=== PATIENT | male | born 1940 | race Caucasian/White ===

== ENCOUNTER 2018-09-11 16:39 | Outpatient (REF) | payer MEDICARE, SELFPAY | END 2018-09-11 16:59 | LOC: NCHCN 16:39 | PROVIDERS: PCP Family Medicine; Visit Provider Family Medicine | DX: N39.0 Urinary tract infection, site not specified (principal) | CPT/HCPCS: 87077; 87086; 87186 ==

== ENCOUNTER 2019-05-11 12:55 | Outpatient (REF) | payer MEDICARE, BC, SELFPAY ==
[2019-05-11 22:04] LABS: TSH (W/Ref FT4) 4.11 uIU/mL (0.358-3.74); Vitamin B12 319 pg/mL (193-986)
[2019-05-11 22:30] LABS: FREE T4 0.92 ng/dL (0.76-1.46)
== END 2019-05-11 13:15 ==
LOC: NCHCN 12:55
PROVIDERS: PCP Family Medicine; Visit Provider Internal Medicine
DX: R73.09 Other abnormal glucose (principal); G60.9 Hereditary and idiopathic neuropathy, unspecified; N40.0 Benign prostatic hyperplasia without lower urinary tract symptoms
CPT/HCPCS: 82607; 84439; 84443

== ENCOUNTER 2019-11-20 13:27 | Outpatient (REF) | payer MEDICARE, BC, SELFPAY | END 2019-11-20 13:47 | LOC: NCHCN 13:27 | PROVIDERS: PCP Family Medicine; Visit Provider Internal Medicine | DX: R35.0 Frequency of micturition (principal) | CPT/HCPCS: 87077; 87086; 87186 ==

== ENCOUNTER 2020-01-13 15:03 | Outpatient (REF) | payer MEDICARE, BC, SELFPAY | END 2020-01-13 15:23 | LOC: NCHCN 15:03 | PROVIDERS: PCP Family Medicine; Visit Provider Registered Nurse | DX: R82.998 Other abnormal findings in urine (principal) | CPT/HCPCS: 87077; 87086; 87186 ==

== ENCOUNTER 2020-03-11 11:18 | Outpatient (REF) | payer MEDICARE, BC, SELFPAY ==
[2020-03-11 21:41] LABS: ALT 31 U/L (16-63); AST 24 U/L (15-37); Albumin 3.8 g/dL (3.4-5.0); Alkaline Phosphatase 105 U/L (46-116); Anion Gap 10.2 mmol/L (3-11); BUN 14 mg/dL (7-18); Bilirubin, Total 0.7 mg/dL (0.2-1.0); CO2 26.8 mmol/L (21.0-32.0); CREATININE 1.07 mg/dL (0.70-1.30); Calcium 9.2 mg/dL (8.5-10.1); Calculated LDL 97 mg/dL (<100); Chloride 103 mmol/L (98-107); Cholesterol 181 mg/dL (<200); Glucose 135 mg/dL (74-106); HDL Cholesterol 45 mg/dL (40-60); Potassium 4.2 mmol/L (3.5-5.1); Sodium 140 mmol/L (136-145); TSH (W/Ref FT4) 1.91 uIU/mL (0.36-3.74); Total Protein 7.3 g/dL (6.4-8.2); Triglyceride 199 mg/dL (<150)
[2020-03-11 22:00] LABS: HCT 52.8 % (40.0-50.0); HGB 17.5 g/dL (13.5-17.5); Mean Corp. HGB Concentration 33.1 g/dL (32.0-36.0); Mean Corpuscular Hemoglobin 32.3 pg (27.0-33.0); Mean Corpuscular Volume 97.4 fL (80-95); Mean Platelet Volume 10.7 fL (8.0-11.0); Platelet Count 251 x1000/uL (130-400); RBC 5.42 m/cumm (4.50-6.00); RBC Distribution Width 12.9 % (11.8-14.1); White Blood Cell Count 6.53 k/cumm (4.4-10.8)
[2020-03-11 22:25] LABS: Hemoglobin A1C 5.7 % (3.8-5.6)
== END 2020-03-11 11:38 ==
LOC: NCHCN 11:18
PROVIDERS: PCP Family Medicine; Visit Provider Internal Medicine
DX: R73.09 Other abnormal glucose (principal); E78.2 Mixed hyperlipidemia; Z01.818 Encounter for other preprocedural examination
CPT/HCPCS: 80053; 80061; 85027; 83036; 84443

== ENCOUNTER 2021-03-20 09:38 | Outpatient (REF) | payer MEDICARE, BC, SELFPAY ==
[2021-03-20 13:54] LABS: Hemoglobin A1C 5.5 % (<5.7)
[2021-03-20 14:07] LABS: Anion Gap 11.8 mmol/L (3-11); BUN 13 mg/dL (7-18); CO2 26.2 mmol/L (21.0-32.0); Calcium 9.1 mg/dL (8.5-10.1); Calculated LDL 87 mg/dL (<100); Chloride 103 mmol/L (98-107); Cholesterol 163 mg/dL (<200); Glucose 148 mg/dL (74-106); HDL Cholesterol 43 mg/dL (40-60); Potassium 4.5 mmol/L (3.5-5.1); Sodium 141 mmol/L (136-145); Triglyceride 165 mg/dL (<150)
== END 2021-03-20 09:39 | disposition home or self-care (01) ==
LOC: NCHCN 09:38
PROVIDERS: PCP Family Medicine; Visit Provider Internal Medicine
DX: E78.5 Hyperlipidemia, unspecified (principal); R73.09 Other abnormal glucose
CPT/HCPCS: 80048; 80061; 83036

== ENCOUNTER 2022-03-22 09:42 | Outpatient (REF) | payer MEDICARE, BC, SELFPAY ==
[2022-03-22 14:54] LABS: Hemoglobin A1C 5.8 % (<5.7)
[2022-03-22 15:00] LABS: ALT 31 U/L (16-63); AST 20 U/L (15-37); Albumin 3.9 g/dL (3.4-5.0); Alkaline Phosphatase 93 U/L (46-116); Anion Gap 10.2 mmol/L (3-11); BUN 14 mg/dL (7-18); Bilirubin, Total 0.8 mg/dL (0.2-1.0); CO2 25.8 mmol/L (21.0-32.0); CREATININE 1.1 mg/dL (0.70-1.30); Calcium 8.7 mg/dL (8.5-10.1); Chloride 105 mmol/L (98-107); Glucose 116 mg/dL (74-106); Potassium 4.6 mmol/L (3.5-5.1); Sodium 141 mmol/L (136-145); Total Protein 7.2 g/dL (6.4-8.2)
== END 2022-03-22 09:43 | disposition home or self-care (01) ==
LOC: NCHCN 09:42
PROVIDERS: PCP Family Medicine; Visit Provider Internal Medicine
DX: R73.03 Prediabetes (principal)
CPT/HCPCS: 80053; 83036

== ENCOUNTER 2023-11-15 15:03 | Outpatient (REF) | payer MEDICARE, BC, SELFPAY ==
[2023-11-15 21:33] LABS: HCT 54.1 % (40.0-50.0); HGB 18.2 g/dL (13.5-17.5); MCH 32.4 pg (27.0-33.0); MCHC 33.6 % (32.0-36.0); MCV 96 fL (80-95); MPV 10.7 fL (8.0-11.0); Platelet Count 261 10^3/uL (130-400); RBC 5.62 10^6/uL (4.36-5.78); RDW 12.1 % (11.8-14.1); RDW-SD 43.4 fL; WBC 8.14 10^3/uL (4.4-10.8)
[2023-11-15 22:07] LABS: Hemoglobin A1C 5.7 % (<5.7)
[2023-11-15 23:22] LABS: ALT 29 U/L (16-63); AST 26 U/L (15-37); Albumin 3.8 g/dL (3.4-5.0); Alkaline Phosphatase 82 U/L (46-116); Anion Gap 5.5 mmol/L (3-11); BUN 12 mg/dL (7-18); Bilirubin, Total 0.6 mg/dL (0.2-1.0); CO2 28.5 mmol/L (21.0-32.0); CREATININE 1.1 mg/dL (0.70-1.30); Calcium 9.5 mg/dL (8.5-10.1); Calculated LDL 83 mg/dL (<100); Chloride 105 mmol/L (98-107); Cholesterol 182 mg/dL (<200); Estimated GFR 67.02 (mL/min/1.73m2); Glucose 112 mg/dL (74-106); HDL Cholesterol 46 mg/dL (40-60); Potassium 4.3 mmol/L (3.5-5.1); Sodium 139 mmol/L (136-145); Total Protein 7.8 g/dL (6.4-8.2); Triglyceride 267 mg/dL (<150); Vitamin B12 201 pg/mL (193-986)
== END 2023-11-15 15:04 | disposition home or self-care (01) ==
LOC: NCHCN 15:03
PROVIDERS: PCP Family Medicine; Visit Provider Internal Medicine
DX: R73.03 Prediabetes (principal); E78.1 Pure hyperglyceridemia; R79.89 Other specified abnormal findings of blood chemistry; G62.9 Polyneuropathy, unspecified
CPT/HCPCS: 80053; 80061; 85027; 82607; 83036

== ENCOUNTER 2024-01-10 15:45 | Outpatient (REF) | payer MEDICARE, BC, SELFPAY ==
[2024-01-10 22:09] LABS: Vitamin B12 387 pg/mL (193-986)
== END 2024-01-10 15:46 | disposition home or self-care (01) ==
LOC: NCHCN 15:45
PROVIDERS: PCP Family Medicine; Referring Provider Internal Medicine; Visit Provider Internal Medicine
DX: E53.8 Deficiency of other specified B group vitamins (principal)
CPT/HCPCS: 82607

== ENCOUNTER 2024-01-13 13:42 | Outpatient (REF) | payer MEDICARE, BC, SELFPAY ==
[2024-01-13 14:43] LABS: HCT 52.9 % (40.0-50.0); HGB 17.2 g/dL (13.5-17.5); MCH 32.1 pg (27.0-33.0); MCHC 32.5 % (32.0-36.0); MCV 99 fL (80-95); MPV 10.6 fL (8.0-11.0); Platelet Count 241 10^3/uL (130-400); RBC 5.36 10^6/uL (4.36-5.78); RDW 12.3 % (11.8-14.1); RDW-SD 45.1 fL; WBC 7.35 10^3/uL (4.4-10.8)
== END 2024-01-13 13:43 | disposition home or self-care (01) ==
LOC: NCHCN 13:42
PROVIDERS: PCP Family Medicine; Visit Provider Internal Medicine
DX: R04.0 Epistaxis (principal)
CPT/HCPCS: 85027

== ENCOUNTER 2024-05-18 13:12 | Outpatient (REF) | payer MEDICARE, BC, SELFPAY ==
--- OUTSIDE RECORDS SUMMARY | 2024-05-18 13:18 | XMS_ITS | Encounter Summary ---
Author Organization [facility] Address [address] [place] [address] Care Team Providers Care Associate Manager Affiliate Marketing Name Role Phone Kylie Oglesby Primary Care Provider [phone] Reason for Visit * Reason Onset Date Comments Medication Questions 07/05/2020 Encounter Details Date Type Department Care Team (Late st Contact Info) Description 07/05/2020 Telephone [facility] [address] [place] [address] James Chin MD [address] [facility] [address] [place] [address] Medication Questions Social History Tobacco Use Types Packs/Day Years Used Date Smoking Tobacco: Former Cigarettes 2 30 1 1994 Smokeless Tobacco: Never Alcohol Use Standard Drinks/Week Comments Yes 7 (1 standard drink = 0.6 oz pur e alcohol) PHQ-2 Answer Date Recorded PHQ-2 Score 0 05/30/2020 Interpersonal Safety Answer Date Record ed Physically Hurt Never 05/30/2020 Verbally Threaten Not on file 05/30/2020 Sex and Gender Information Value Date Recorded Sex Assigned at Not on file Gender Identity Male 11/28/2019 13:59 EST Sexual Orientation Not on file documented as of this encounter Functional Status Functional Status Response Date of Assess ment Are you deaf or do you have serious difficulty h earing? No 03/17/2020 Are you blind or do you have serious difficulty seeing, even when wearing glasses? No 03/17/2020 Do you have serious difficul ty walking or climbing stairs? (5 years old or older) No 03/17/2020 Do you have difficulty dress ing or bathing? (5 years old or older) No 03/17/2020 Because of a physical, menta l, or emotional condition, does this person have difficulty doing errands alone such as visiting a doctor's office or shopping? No 06/28/2020 Cognitive Status Response Date of Assessm ent Because of a physical, menta l, or emotional condition, does this person have serious difficulty concentrating, remembering, or making decisions? No 06/28/2020 documented as of this encounter Miscellaneous Notes * Telephone Encounter - Jose Styles - 07/06/2020 1212 EDT Patient notified, as of our coversation yesterday his marc has been great. 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 He wnders if should still be on tamsulosin (as he was prior) documented in this encounter Plan of Treatment Not on file documented as of this encounter Visit Diagnoses Not on filedocumented in this encounter Care Teams Associate Manager Affiliate Marketing Relationship Specialty Start Date End Date Kylie Oglesby [address] [place] [address] PCP - General Internal Medicine - Primary Care 12/15/19 documented as of this encounter
--- OUTSIDE RECORDS SUMMARY | 2024-05-18 13:18 | XMS_ITS | Encounter Summary ---
Author Organization [facility] Address [address] [place] [address] Care Team Providers Care Violent Crimes Detective Name Role Phone Kylie Oglesby Primary Care Provider [phone] Reason for Visit * Reason Comments Post-OP Follow Up Encounter Details Date Type Department Care Team (Late st Contact Info) Description 04/12/2020 15:30 EDT Post-op Visit [facility] General Surgery - [facility] [address] [place], [place] [id number] Sara Mendez MD [address] [facility], [address] [place] [address] Colovesical fistula (Primary Dx) Social History Tobacco Use Types Packs/Day Years Used Date Smoking Tobacco: Former Cigarettes 2 30 1 965 - 1994 Smokeless Tobacco: Never Alcohol Use Standard Drinks/Week Comments Yes 7 (1 standard drink = 0.6 oz pur e alcohol) Sex and Gender Information Value Date Recorded Sex Assigned at Not on file Gender Identity Male 11/28/2019 13:59 EST Sexual Orientation Not on file COVID-19 Exposure Response Date Recorded In the last month, have you been in contact with someone who was confirmed or suspected to have Coronavirus / COVID-19? No / Unsure 03/17/2020 6:49 EDT documented as of this encounter Last Filed Vital Signs Vital Sign Reading Time Taken Comments Blood Pressure - - Pulse - - Temperature - - Respiratory Rate - - Oxygen Saturation - - Inhaled Oxygen Concentration - - Weight 100.7 kg (222 lb) 04/12/2020 1529 EDT Height - - Body Mass Index 27.02 03/17/2020 1600 EDT documented in this encounter Functional Status Functional Status Response [...] a physical, menta l, or emotional condition, do you have difficulty doing errands alone such as visiting a doctor's office or shopping? (15 years old or older) No 03/17/2020 Cognitive Status Response Date of Assessm ent Because of a physical, menta l, or emotional condition, do you have serious difficulty concentrating, remembering, or making decisions? (5 years old or older) No 03/17/2020 documented as of this encounter Progress Notes * Sara Mendez MD - 04/12/2020 1530 EDT Subjective: Patient is s/p sigmoid colectomy for complicated diverticulitis with colovesicular fistula 03/17/20--path consistent with such. His postoperative course was complicated by high grade fevers on POD 0 for which he was treated with a 5 day course of cipro/flagyl and ileus which resolved with NG tube dec ompression. He was discharged home POD 9. He is having 1 or 2 bowel movements per day. Good control, no urgency. He denies any pneumaturia ordysuria. His weight is down to 206 from 222. He states that he is probably gained 1 pound from his lowest weight based on his home scale. Colonoscopy 02/17/30 with diverticulosis, only repeat if symptomatic in future given patient's age. He has bowel movements about once daily. ??He denies constipation. ??He denies fecal incontinence but does occasionally have some urgency. ??He has no blood in his bowel movement or change in caliber. ??He has no significant change in his bowel movements. ?? In regards to symptoms of diverticulitis, patient does not endorse any history of left lower quadrant or suprapubic pain associated with fevers chills or change in bowel movements. ? He has been seen by the urology department at [facility] with Cathryn Monzon. ??She did a CT scan of the abdomen and pelvis with per rectum contrast that demonstrated some sigmoid colon inflammation, gasin the bladder, and some thickening of the bladder, and a loop of terminal ileum that traverses clos brennan.?CT scan also demonstrated some subcentimeter pulmonary nodules and with his history of smoking, it is recommended he undergo repeat CT scan in the next 3 to 6 months. ?? CT 04/2019 for flank pain reviewed by myself--does demonstrate a thickened bladder with gas in the bladder, no inflammation of the sigmoid colon. ?? 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 ??He denies any chest pain with exertion, but does have some shortness of breath if he walks out 2 flights of stairs ?? Colonoscopy was about 2 to 3 years ago at [facility]. ??He states it was normal. ??He did have 1-2 polyps that he was age 61 at his first colonoscopy. 02/18/20: diverticulosis of sigmoid colon. ?? Surgical hx: appendectomy at age 6, tonsillectomy ?? No unintentional weight loss ?? Family history: Maternal grandfather of consumption, maternal aunt with severe arthritis. ??Nohistory of cancer, no history of polyps or IBD. ??Patient does not know his father's side well and he was raised by his grandmother. Current Outpatient Medications: acetaminophen (TYLENOL) 325 mg tablet pantoprazole (PROTONIX) 40 mg tablet tamsulosin (FLOMAX) 0.4 mg capsule No current facility-administered medications for this visit. Past Medical History: Diagnosis Date ??? Activity, other involving cardiorespiratory exercise 03/03/2020 gym daily, treadmill 1 mile, has not been able to go for last 4 weeks secondary to covid19, pt states could climb 2 flights of stairs without stopping or SOB ??? Claustrophobia 03/03/2020 with MRI's ??? Colon polyp ??? Diverticulitis ??? Edentulous no upper teeth, has natural teeth on the bottom ??? Fistula colovesicular fistula - diverticulitis ??? Frequent UTI started having issues [id number], never been hospitalized for uti ??? History of general anesthesia ??? Peripheral neuropathy 03/03/2020 ongoing issue Past Surgical History: Procedure Laterality Date ??? APPENDECTOMY 1946 ??? TONSILLECTOMY ~194 No family history on file. Objective: There were no vitals taken for this visit. General: Alert and oriented x 3, in no apparent distress Abdomen: Well-healing subxiphoid and periumbilical incision A/P: Almost 1 month out from sigmoid resection for complicated diverticulitis with colovesicular fistula. Doing well. I will see him back in 2 months. documented in this encounter Plan of Treatment Not on file documented as of this encounter Visit Diagnoses Diagnosis Colovesical fistula- Primary Intestinovesical fistula documented in this encounter Care Teams Violent Crimes Detective Relationship Specialty Start Date End Date Kylie Oglesby [address] [place] [address] PCP - General Internal Medicine - Primary Care 12/15/19 documented as of this encounter
--- OUTSIDE RECORDS SUMMARY | 2024-05-18 13:18 | XMS_ITS | Continuity of Care Document ---
Author Organization [facility] Address [address] [place] [address] Care Team Providers Care Exchange Trouble Shooter Name Role Phone Kylie Oglesby Primary Care Physician Encounter [facility] Date(s): 04/03/24 - 04/03/24 [facility] [address] [place] [address] Discharge Disposition: Home Allergies, Adverse Reactions, Alerts Substance Reaction Severity Status predniSONE Moderate Active Assessment and Plan Future Appointments Medications Afrin 0.05% nasal spray 2 sprays, Nostril-Both, BID, # 30 mL, 0 Refill(s) Start Date: 03/27/24 Status: Ordered cyanocobalamin 1000 mcg oral tablet 1,000 mcg = 1 tab, Oral, Daily, # 90 tab, 0 Refill(s) Start Date: 03/27/24 Status: Ordered docusate sodium 100 mg oral tablet 100 mg = 1 tab, Oral, Daily, PRN as needed for constipation, # 60 tab, 0 Refill(s) Start Date: 03/27/24 Status: Ordered gabapentin 600 mg oral tablet 600 mg = 1 tab, Oral, BID, # 270 tab, 0 Refill(s) Start Date: 04/03/24 Status: Ordered Problem List Condition Confirmation Course Effective Dates Status H ealth Status Informant Impaired intestinal absorption Confirmed Active Blood glucose abnormal Confirmed Active Cobalamin deficiency Confirmed Active Cystitis Confirmed Active Left sided sciatica Confirmed Active Diverticular disease Confirmed Active Dizziness and giddiness Confirmed Active Dysuria Confirmed Active Erythrocytosis Confirmed Active Former heavy tobacco smoker Confirmed Active Ex-smoker Confirmed Active Hyperlipidemia Confirmed Active Increased frequency of urination Confirmed Active Gastrointestinal tract injury Confirmed Active Localized skin eruption Confirmed Active Low back pain Confirmed Active Nocturia Confirmed Active Nocturia associated with benign prostatic hyperplasia Confirmed Active Onychomycosis due to dermatophyte Confirmed Active Open wound of toe with damage to nail Confirmed Active Polyneuropathy Confirmed Active Prediabetes Confirmed Active Sciatica Confirmed Active Urinary tract infectious disease Confirmed Active Urticaria Confirmed Active Varicocele Confirmed Active Varicose vein of leg Confirmed Active Social History Social History Type Response Tobacco Former tobacco user Tobacco Use:. quit 1995 per day. Sex Patient Care team information Care Team Personnel Name: Kylie Oglesby MD Position: No Access Member Role: Primary Care Physician Address: Address: [address] [address]- Care Team Related Persons Name: RAMIRO RUBIO Address: Home [address] [place] [phone]
--- OUTSIDE RECORDS SUMMARY | 2024-05-18 13:18 | XMS_ITS | Referral Summary ---
Author Organization [facility] Address [address] [place] [address] Care Team Providers Care Wet Finisher Wool Name Role Phone Kylie Oglesby Primary Care Provider [phone] Allergies Active Allergy Reactions Criticality Noted Date Comments Corticosteroids (Glucocorticoids) Other (See Comments) 12/01/2019 Paranoia, crazy Medications Medication Sig Dispensed Refills Start Date End Date Status tamsulosin (FLOMAX) 0.4 mg capsule Take by mouth daily. 11/17/2019 Active acetaminophen (TYLENOL) 325 mg tablet Take 1-2 Tabs by mouth every 4 hours as needed for Pain. 03/25/202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 Overview: Added automatically from request for surgery [id number] Diverticulitis 03/01/2020 Overview: Added automatically from request for surgery [id number] Diverticulitis large intestine 02/18/2020 Immunizations Name Administration Dates Next Due Influenza Vaccine High Dose (FLUZONE HIGH DOSE) PF 0.7 ml IM (65 yrs+) 09/10/2019 Social History Tobacco Use Types Packs/Day Years Used Date Smoking Tobacco: Former Cigarettes 2 30 1 5 - 1994 Smokeless Tobacco: Never Alcohol Use [...] 13:59 EST Sexual Orientation Not on file Last Filed Vital Signs Vital Sign Reading Time Taken Comments Blood Pressure 120/88 06/28/2020 1432 EDT Pulse 78 06/28/2020 143 EDT Temperature 37.3 ??C (99.1 ??F) 03/26/2020 06 EDT Respiratory Rate 18 03/26/2020 06 EDT Oxygen Saturation 97% 03/26/2020 06 EDT Inhaled Oxygen Concentration - - Weight 95.3 kg (210 lb) 06/28/2020 143 EDT Height 193 cm (6' 4) 06/28/2020 143 EDT Body Mass Index 25.56 06/28/2020 143 EDT Functional Status Functional Status Response Date of [...] concentrating, remembering, or making decisions? No 06/28/2020 Plan of Treatment Not on file Medical Devices Implanted Type Area Mortgage Loan Processor Device Identifier Shelf Expiration Date Model / Serial / Lot Evacuator Suction 100cc Silicone Closed Wound With Anti-Reflux Valve - [id number] Implanted:Qty : 1 on 03/17/2020 by Sara Mendez MD at [facility] Drain N/A: Abdomen Polatis [id number] 07/25/2022 [id number] Advance Directives For more information, please contact: [phone] Documents on File Type Date Recorded Patient Small Craft Operator Expl anation Advance Directive 03/17/2020 7:05 AD/POA Advance Directive 03/18/2020 9:21 [place] Advan ce Directive for Health Care-Signed 2015-06-03 Advance Directive 03/18/2020 9:21 Power Of Forestry Biology Specialist-Signed 2015-06-03 * Full Code (Latest Code Status on File) Date Activated Date Inactivated Comments 03/17/2020 7:20 03/17/2020 13:53 Question Answer Comments Reason for decision includes: Full code consistent with overall plan of care Who participated in the discussion? Not Discusse d * Full Code Date Activated Date Inactivated Comments 02/18/2020 12:12 02/18/2020 16:59 Question Answer Comments Reason for decision includes: Full code consistent with overall plan of care Who participated in the discussion? Not Discusse d Care Teams Wet Finisher Wool Relationship Specialty Start Date End Date Kylie Oglesby [address] [place] [address] PCP - General Internal Medicine - Primary Care 12/15/19
--- OUTSIDE RECORDS SUMMARY | 2024-05-18 13:18 | XMS_ITS | Encounter Summary ---
Author Organization [facility] Address [address] [place] [address] Care Team Providers Care Fire Prevention Chief Name Role Phone Kylie Oglesby Primary Care Provider [phone] Encounter Details Date Type Department Care Team (Latest Contact Info) Description 03/17/2020 Travel Social History Tobacco Use Types Packs/Day Years Used Date Smoking Tobacco: Former Cigarettes 30 965 1994 Smokeless Tobacco: Never Alcohol Use Standard [...] 6:49 EDT documented as of this encounter Functional Status [...] No 03/17/2020 documented as of this encounter Plan of Treatment Not on file documented as of this encounter Visit Diagnoses Not on filedocumented in this encounter Care Teams Fire Prevention Chief Relationship Specialty Start Date End Date Kylie Oglesby [address] [place] [address] PCP - General Internal Medicine - Primary Care 12/15/19 documented as of this encounter
--- OUTSIDE RECORDS SUMMARY | 2024-05-18 13:18 | XMS_ITS | Encounter Summary ---
Author Organization [facility] Address [address] [place] [address] Care Team Providers Care Curing Pickling Packer Name Role Phone Kylie Oglesby Primary Care Provider [phone] Reason for Visit * Reason Comments Follow-up Encounter Details Date Type Department Care Team (Late st Contact Info) Description 06/28/2020 14:30 EDT Office Visit [facility] General Surgery - [facility] [address] [place], [place] [id number] Sara Mendez MD [address] [facility], [address] [place] [address] Colovesical fistula (Primary Dx) Social History Tobacco Use Types Packs/Day Years Used Date Smoking Tobacco: Former Cigarettes 1 965 - 1994 Smokeless Tobacco: Never [...] on file documented as of this encounter Last Filed Vital Signs Vital Sign Reading Time Taken Comments Blood Pressure 120/88 06/28/2020 1432 EDT Pulse 78 06/28/2020 1432 EDT Temperature - - Respiratory Rate - - Oxygen Saturation - - Inhaled Oxygen Concentration - - Weight 95.3 kg (210 lb) 06/28/2020 1432 EDT Height 193 cm (6' 4) 06/28/2020 1432 EDT Body Mass Index 25.56 06/28/2020 1432 EDT documented in this encounter Functional Status [...] No 06/28/2020 documented as of this encounter Progress Notes * Sara Mendez MD - 06/28/2020 1430 EDT Subjective: Patient is s/p sigmoid colectomy for complicated diverticulitis with colovesicular fistula 03/17/20--path consistent with such. His postoperative course was complicated by high grade fevers on POD 0 for which he was treated with a 5 day course of cipro/flagyl and ileus which resolved with NG tube dec ompression. He was discharged home POD 9. He is having 1 bowel movements per day. Good control, no urgency. He denies any pneumaturia or dysuria. His energy is good. He feels back to his baseline. He is wondering if he needs to keep on the tamsulosin which was started about a year ago when he started having UTIs. He does still have nocturia and is going 2-3 times at night. Colonoscopy 02/17/30 with diverticulosis, only repeat if [...] been seen by the urology department at [facility] with Cathryn Monzon. 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 ??He denies any chest pain with exertion, but does have some shortness of breath if he walks out 2 flights of stairs ?? Colonoscopy was about 2 to 3 years ago at [facility]. ??He states it was normal. ??He [...] was raised by his grandmother. Current Outpatient Medications Medication ??? acetaminophen (TYLENOL) 325 mg tablet ??? pantoprazole (PROTONIX) 40 mg tablet ??? tamsulosin (FLOMAX) 0.4 mg capsule No current [...] diverticulitis ??? Frequent UTI started having issues [id number], never been hospitalized for uti ??? History of general anesthesia ??? Peripheral neuropathy 03/03/2020 ongoing issue Past Surgical History: Procedure Laterality Date ??? APPENDECTOMY 194 ??? TONSILLECTOMY ~1946 No family history on file. Objective: There were no vitals taken for this visit. General: Alert and oriented x 3, in no apparent distress Abdomen: Well-healing subxiphoid and periumbilical incision, nontender, no evidence of incisional hernia shift A/P: 3 months status post sigmoid colectomy for colovesicular fistula. Doing very well. May follow-up on an as-needed basis. Colonoscopy in 2024 given personal history of polyps. documented in this encounter Plan of Treatment Not on file documented as of this encounter Visit Diagnoses Diagnosis Colovesical fistula- Primary Intestinovesical fistula documented in this encounter Care Teams Curing Pickling Packer Relationship Specialty Start Date End Date Kylie Oglesby [address] [place] [address] PCP - General Internal Medicine - Primary Care 12/15/19 documented as of this encounter
--- OUTSIDE RECORDS SUMMARY | 2024-05-18 13:18 | XMS_ITS | Clinical Summary ---
Author Organization [facility] Address [address] [place] [address] Care Team Providers Care Lens Blank Gauger Name Role Phone Kylie Oglesby Primary Care Provider [phone] Allergies Active Allergy Reactions Criticality Noted Date [...] Overview: Added automatically from request for surgery [id number] Diverticulitis 03/01/2020 Overview: Added automatically from request for surgery [id number] Diverticulitis large intestine 02/18/2020 Immunizations Name Administration Dates Next Due Influenza Vaccine High Dose (FLUZONE HIGH DOSE) PF 0.7 ml IM (65 yrs+) 09/10/2019 Surgical History Surgery Date Site/Laterality Comments APPENDECTOMY 10/28/1945 - 10/27/1946 TONSILLECTOMY ~1946 Medical History Medical History Date Comments Colon polyp Frequent UTI started having i ssues [id number], never been hospitalized for uti Fistula colovesicular fi stula - diverticulitis Diverticulitis History of general anesthesia Edentulous no upper teeth, has natural teeth on the bottom Peripheral neuropathy 03/03/2020 ongoing issue Activity, other involving cardiorespiratory exercise 03/03/2020 gym daily, tread mill 1 mile, has not been able to go for last 4 weeks secondary to covid 19, pt states could climb 2 flights of stairs without stopping or SOB Claustrophobia 03/03/2020 with MRI's Social History Tobacco Use Types Packs/Day Years [...] 13:59 EST Sexual Orientation Not on file Obstetrics History Last Filed Vital Signs Vital Sign Reading Time Taken Comments Blood Pressure 120/88 06/28/2020 1432 EDT Pulse 78 06/28/2020 1432 EDT Temperature 37.3 ??C (99.1 ??F) 03/26/2020 0605 EDT Respiratory Rate 18 03/26/2020 0605 EDT Oxygen Saturation 97% 03/26/2020 0605 EDT Inhaled Oxygen Concentration - - Weight 95.3 kg (210 lb) 06/28/2020 1432 EDT Height 193 cm (6' 4) 06/28/2020 1432 EDT Body Mass Index 25.56 06/28/2020 1432 EDT Plan of Treatment Health Maintenance Due Date Last Done Comments RSV Immunization ( o r 60+ Years) (1 - 1-dose 60+ series) 2001 Fall Risk Screening 2006 COVID-19 Vaccine (2022- season) 2023 Medical Devices Implanted Type Area Silviculturist Device Identifier Shelf Expiration Date Model / Serial / Lot Evacuator Suction 100cc Silicone Closed Wound With Anti-Reflux Valve - [id number] Implanted:Qty : 1 on 03/17/2020 by Sara Mendez MD at [facility] Drain N/A: Abdomen COADE [id number] 07/25/2022 [id number] / / [id number] Advance Directives For more information, please contact: [phone] Documents on File Type Date Recorded Patient Acquisition Specialist Expl anation Advance Directive 03/17/2020 7:05 AD/POA Advance Directive 03/18/2020 9:21 [place] Advan ce Directive for Health Care-Signed 2015-06-03 Advance Directive 03/18/2020 9:21 Power Of Speech Communication Instructor-Signed 2015-06-03 * Full Code (Latest Code Status [...] the discussion? Not Discusse d Care Teams Lens Blank Gauger Relationship Specialty Start Date End Date Kylie Oglesby [address] [place] [address] PCP - General Internal Medicine - Primary Care 12/15/19
--- OUTSIDE RECORDS SUMMARY | 2024-05-18 13:18 | XMS_ITS | Encounter Summary ---
Author Organization [facility] Address [address] [place] [address] Care Team Providers Care President [employer] Name Role Phone Kylie Oglesby Primary Care Provider [phone] Reason for Referral * Referral (48 Hrs (Urgent)) - Closed Specialty Diagnoses / Procedures Referred By Kavitha burgos Referred To Contact Diagnoses Colovesical fistula Es Peace, EXCELSIOR PICKER [address] [facility] [address] [place] [address] Referral ID Status Reason Start Date Expiration Date V isits Requested Visits Authorized [id number] Closed Specialty Services Required 03/25/2020 1 1 Question Answer I certify that this patient is under my care and that I, or another Medicare allowed practitioner (DO AGUSTINA, CHAYITO) working with me, had a vjgi-dl-metr encounter with this patient on this date: 03/25/2020 I further certify that the txbz-op-mhgj encounter was in whole or in part related to the reason the patient needs home health care. Yes The discharge summary or progress note will provide further details that support the need for the home health services and the plan of care. Yes Enter the allowed practitioner (DO AGUSTINA, CHAYITO) who will provide oversight of this patient's home heatlh care needs and plan of care Sara Mendez MD The patient? s homebound status is related to the following diagnoses, illness or condition (describe): s/p sigmoidectomy The patient has a condition due to an illness or injury that restricts the ability to leave home except with: The assistance or supervision of another person Leaving the home is medically contraindicated due to (reason 1): Post surgical restrictions or conditions Leaving home requires a considerable and taxing effort with mobility limited by the following (criteria 1): Post surgical or post procedure restrictions limit ambulation and activity Nursing skilled care requested: Physical Therapy, Nursing asessment halfway assessment needed related to this encounter: GI Status Physical therapy is needed for: Safety, Strength Training/Exercise Program, Gait/Mobility Assessment and Training Expected Discharge Date (Inpatient Only): 03/25/2020 * (Routine) - Receiving Office to Obtain Authorization Specialty Diagnoses / Procedures Referred By Contac t Referred To Contact Es Peace NP [address] [place] [phone] Referral ID Status Reason Start Date Expiration Date Visits Requested Visits Authorized [id number] Receiving Office to Obtain Authorization Specialty Services Required 0 1 1 Comments Please call our clinic at [phone] to schedule a follow up appointment with your surgeon in 3-4 weeks. Call if you have any questions or concerns. * (Routine) - Receiving Office to Obtain Authorization Specialty Diagnoses / Procedures Referred By Contdennis t Referred To Contact Es Peace NP [address] [place] [phone] Referral ID Status Reason Start Date Expiration Date Visits Requested Visits Authorized [id number] Receiving Office to Obtain Authorization Specialty Services Required 0 1 1 Comments We are currently collecting quality data on patients having surgery. You may receive a phone call, email, and/or letter about your surgery asking you a series of follow up questions to evaluate specifics aspects of your care. Thank you for your participation. Reason for Visit * Auth/Cert Specialty Diagnoses / Procedures Referred By Contac t Referred To Contact Diagnoses Colovesical fistula Procedures GA LAP,SURG,COLECTOMY, PARTIAL, W/ANAST Diagnostic laparoscopy with possible sigmoid colectomy Referral ID Status Reason Start Date Expiration Date Visits Re quested Visits Authorized [id number] 1 1 Encounter Details Date Type Department Care Team (Late st Contact Info) Description 03/17/2020 6:49 EDT - 03/26/2020 12:10 EDT Hospital Encounter [facility] General Surgery Unit [address] [place], [place] [address] Sara Mendez MD [address] [facility], [address] [place] [address] Colovesical fistula (Primary Dx) Discharge Disposition: Home-Health Care Svc Social History Tobacco Use Types Packs/Day Years Used Date Smoking Tobacco: Former Cigarettes 2 1 5 1994 Smokeless Tobacco: Never Alcohol Use Standard [...] Sign Reading Time Taken Comments Blood Pressure 146/93 03/26/2020 0605 EDT Pulse 75 03/26/2020 0605 EDT Temperature 37.3 ??C (99.1 ??F) 03/26/2020 0605 EDT Respiratory Rate 18 03/26/2020 0605 EDT Oxygen Saturation 97% 03/26/2020 0605 EDT Inhaled Oxygen Concentration - - Weight 101.1 kg (222 lb 14.2 oz) 03/17/2020 0755 EDT Height 193 cm (6' 4) 03/17/2020 1600 EDT Body Mass Index 27.13 03/17/2020 0755 EDT documented in this encounter Functional Status [...] No 03/17/2020 documented as of this encounter Discharge Summaries * Jaguar Liang MD - 03/26/2020 0845 EDT Surgery Discharge Summary Primary Care Provider: Kylie Oglesby Attending Physician: Sara Mendez MD Admit Date: 03/17/2020 Discharge Date: 03/26/2020 Disposition: Home with home health Problems and Procedures Admitting Diagnosis: Complicated Diverticulitis; colovesical fistula Principal/Final Diagnosis: Complicated Diverticulitis; colovesical fistula Additional Problems Managed in the Hospital Active Hospital Problems Diagnosis Date Noted ??? *Colovesical fistula 03/01/2020 Added automatically from request for surgery [id number] ??? Diverticulitis 03/01/2020 Added automatically from request for surgery [id number] Resolved Hospital Problems No resolved problems to display. Principal Procedure: Laparoscopic hand assisted sigmoid colectomy with rigid proctoscopy and flexible sigmoidoscopy with placement of 19Fr luis armando drain. 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 He was recovered in PACU and transferred to the surgical floor for postoperative monitoring. On POD0 he was febrile to 39.2. UA and BCx were sent and no growth was seen. He completed a 5d course of ceftriaxone and flagyl without anymore fevers or leukocytosis throughout his stay. An indwelling kincaid catheter remained until POD5 when cystogram was completed that showed no abnormalities. A drain creatinine was checked and normal so the kincaid was removed and he had baseline return of urinary function. He remained hemodynamically stable and his pain was well managedthroughout his stay. He has an ileus post-operatively requiring placement of an NGT. It was removedand his diet was advanced which he tolerated and had baseline return of bowel function. He was discharged home to follow up in our clinic. Allergies and Immunizations Allergies Allergen Reactions ??? Steroid [Corticosteroids (Glucocorticoids)] Other (See Comments) edison Bush Immunization History Administered Date(s) Administered ??? Influenza Vaccine High Dose (FLUZONE HIGH DOSE) PF 0.5 ml IM (65 yrs+) 09/10/2019 Transition of Care Plans Condition at Discharge Stable Gen: sitting in bed, comfortable, pleasant, conversant Resp: clear bilaterally, nonlabored, speaking in full sentences CV: regular rate and rhythm Abd: soft, nontender, lower midline incision with small hematoma and periincisional ecchymosis, drain site with dressing c/d/i Assessment at Discharge Vital signs: Patient Vitals for the past 12 hrs: BP Pulse Resp Temp SpO2 O2 Device 03/26/20 0713 -- -- -- -- -- None 03/26/20 0605 (!) 146/93 75 18 37.3 ??C (99.1 ??F) 97 % None 03/26/20 0127 109/67 60 16 36.9 ??C (98.4 ??F) 92 % None 03/25/20 2119 109/74 73 16 37.1 ??C (98.8 ??F) 95 % None Results Pending at Discharge Test results still pending from this admission None Relevant Studies at Discharge Fl Cystogram Result Date: 03/22/2020 FL CYSTOGRAM 03/22/2020 9:00 AM 1. Only a small volume of contrast (100 cc) was able to be instilled as there was incontinence around the Kincaid catheter beyond this volume. 2. No evidence of leak or fistula. 3. Multiple bladder diverticuli. Last Lab Results at Discharge BUN: Lab Results Component Value Date BUN 14 03/24/2020 Creatinine: Lab Results Component Value Date CREATININE 0.66 03/24/2020 CBC: Lab Results Component Value Date WBC 8.68 03/24/2020 RBC 4.38 03/24/2020 HGB 14.1 03/24/2020 HCT 42.2 03/24/2020 MCV 96 (H) 03/24/2020 MCH 32.2 03/24/2020 MCHC 33.4 03/24/2020 PLT 265 03/24/2020 DIFFTYPE Auto 03/24/2020 Electrolytes: Lab Results Component Value Date NA 139 03/24/2020 K 3.9 03/24/2020 CL 108 03/24/2020 CO2 23 03/24/2020 Discharge Follow Up Upcoming Appointments Apr 12, 2020 15:30 EDT Post Op Visit with Sara Mendez MD [facility] (--) [address] [place] [phone] Follow-up appointments and procedures Amb Consult/Follow Up Home Health Services I certify that this patient is under my care and that I, or another Medicare authorized non-physician practitioner (PA or EXCELSIOR PICKER) or resident working with me, had a lalc-xe-tzuh encounter with this patient on this date: 03/25/2020 I further certify that the syuq-da-mrhq encounter was in whole or in part related to the reason thepatient needs home health care.: Yes The patient has had a rzmp-cw-nisx visit by me or one of my colleagues. The discharge summary or progress note will provide further details that support the need for the home health services and the plan of care.: Yes The MD/DO who will provide oversight of this patient's home heatlh care needs and plan of care: Sara Mendez MD The patient???s homebound status is related to the following diagnoses, illness or condition (describe): s/p sigmoidectomy Patient needs one or more of the following to leave home: The assistance or supervision of another person Leaving the home is medically contraindicated due to: Post surgical restrictions or conditions The following conditions illustrate the patient???s normal inability to leave home AND that leavinghome requires a considerable and taxing effort: Post surgical or post procedure restrictions limit ambulation and activity Skilled Care Requested: Physical Therapy Nursing asessment halfway assessment needed related to this encounter: GI Status Physical therapy is needed for: Safety Strength Training/Exercise Program Gait/Mobility Assessment and Training Expected Discharge Date (Inpatient Only): 03/25/2020 Authorizing Provider: Es Peace APRN Follow-up Appointment Please call our clinic at [phone] to schedule a follow up appointment with your surgeon in 3-4weeks. Call if you have any questions or concerns. Authorizing Provider: Es Peace APRN Quality Discharge Instructions We are currently collecting quality data on patients having surgery. You may receive a phone call, email, and/or letter about your surgery asking you a series of follow up questions to evaluate specifics aspects of your care. Thank you for your participation. Authorizing Provider: Es Peace APRN Richard Mendez, MD 03/26/2020 8:45 Associated attestation - Sara Mendez MD - 03/26/2020 0929 EDT I saw and examined the patient and discussed with the resident/medical student/EXCELSI[employer] PICKER team. I agree with the findings and plan of care documented in the resident's/medical student's/EXCELSIOR PICKER's note. Sara Mendez Division of General Surgery Colon and Rectal Surgery documented in this encounter Medications at Time of Discharge Medication Sig Dispensed Refills Start Date End Date acetaminophen (TYLENOL) 325 mg tablet Take 1-2 Tabs by mouth every 4 hours as needed for Pain. 03/25/2020 tamsulosin (FLOMAX) 0.4 mg capsule Take by mouth daily. 11/17/2019 pantoprazole (PROTONIX) 40 mg tablet Take 1 Tab by mouth daily for 90 days. 90 Tab 03/27/2020 06/25/2020 documented as of this encounter Ordered Prescriptions Prescription Sig Dispensed Refills Start Date End Da te acetaminophen (TYLENOL) 325 mg tablet Take 1-2 Tabs by mouth every 4 hours as needed for Pain. 03/25/2020 pantoprazole (PROTONIX) 40 mg tablet Take 1 Tab by mouth daily for 90 days. 90 Tab 03/27/2020 06/25/2020 documented in this encounter Discharge Disposition Disposition Code Departure Means Destination Home-Health Care [facility] documented in this encounter Progress Notes * Muriel Gaona - 03/25/2020 1310 EDT CM Note Pt advancing diet; progressing with activity. He will dc home with SN and PT services when medically ready likely next 24-48 hours. agency is [facility]. Ami Gaona RN CCM [id number] * Korin Srivastava MD - 03/25/2020 8773 EDT Blue Surgery Progress Note Chief complaint: Colovesical Fistula Procedure: 03/17/2020 - Laparoscopic hand assisted sigmoid colectomy with rigid proctoscopy and flexible sigmoidoscopy 24 hour events: Advanced to clear liquid diet NAEO Subjective: Doing well this morning, states he feels great this morning and slept very well last night. No fevers, chills, shortness of breath. Tolerated clear liquids without nausea or vomiting. Passing flatus and bowel movements. Ambulating around the unit. Objective: BP 122/58 (BP Cuff Location: Right arm, BP Patient Position: Semi fowlers) Pulse 58 Temp 36.6 ??C (97.9 ??F) (Tympanic) Resp 18 Ht (!) 193 cm (76) Wt (!) 101.1 kg (222 lb 14.2 oz) SpO2 96% BMI 27.13 kg/m?? 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 IV Antibiotics started for SIRS postoperatively now completed. Remains afebrile with negative blood and urine cultures. Postoperative course complicated further by ileus requiring NGT decompression. Now with return of bowel function and tolerating diet advancement. Plan: Advance to low residue diet Tylenol for pain control Home flomax Ambulate, OOB Likely d/c tomorrow if tolerating diet DVT ppx: Lovenox 40mg qhs Korin Srivastava MD General Surgery PGY2 [id number] * Es Peace, PERSONNEL MONITOR - 03/24/2020 0822 EDT Surgery Daily Progress Note Patient: Jasbir Kate Admit Date: 03/17/2020 Date of Service: 03/24/2020 POD: 7 (03/17/2020) Procedure: Laparoscopic hand assisted sigmoid colectomy with rigid proctoscopy and flexible sigmoidoscopy CC: Colovesical fistula 24 Hour Events: ?? NGT removed ?? Afebrile; HDS Subjective: Mr. Kate had a great night and was able to get some sleep for the first time. He is not having any abdominal pain or nausea. He denies reflux or belching. He continues to pass flatus and have loose stools. He has been voiding a bit more frequently but states he is not having any similar symptoms towhen he had prior UTI's. Denies fevers, chills. All positive ROS noted in subjective Objective: MAR reviewed Temp: [35.9 ??C (96.6 ??F)-37.2 ??C (99 ??F)] () Heart Rate: [68 BPM-75 BPM] () Pulse: -- () Pulse From Oximetry: [53 BPM-67 BPM] () Resp: [18-20] () BP: (126-137)/(76-89) () SpO2: [92 %-99 %] () Exam: General Appearance: alert, cooperative, no distress Lung: clear to auscultation bilaterally Heart: regular rate and rhythm, S1, S2 normal, no murmur, click, rub or gallop Abdomen: Soft, rotund but less distended with mild tympany, non tender Extremities: WWP, no edema Skin: Skin color, temperature, turgor normal. No rashes or lesions Incision(s)/Wound(s): Drainage from prior drain site. Dressing changed. Midline incision with ecchymosis. Drains: None Intake/Output Summary (Last 24 hours) at 03/24/2020 0822 Last data filed at 03/24/2020 0718 Gross per 24 hour Intake 3121.33 ml Output 1545 ml Net 1576.33 ml I&O By Type - 3 Shifts Including Current In: 2131.3 [P.O.:330; I.V.:1701.3; IV Piggyback:100] Out: 1350 [Urine:1350] Assessment: Active Hospital Problems Diagnosis ??? *Colovesical fistula Added automatically from request for surgery [id number] ??? Diverticulitis Added automatically from request for surgery [id number] Jasbir aKte is a 79 y.o. male with history of colovesical fistula 2/2 complicated diverticulitis whois now POD# 7 s/p Laparoscopic hand assisted sigmoid colectomy with rigid proctoscopy and flexible sigmoidoscopy. Postoperative course complicated by SIRS (antibiotic course complete) and postoperative ileus, resolving with removal of decompression nasogastric tube. Continues to have bowel functionin the setting of improving abdominal distention. Plan: ?? Sips of clears ?? Consider saline locking ?? Strict intake and output ?? Home flomax ?? Bowel regimen ?? Pain medication as written ?? Dispo home when tolerating regular diet and consistent bowel function ?? Case management to assess for home Physical Therapy DVT Prophylaxis: Ambulate, SCD's, Enoxaparin Es Peace APRN 03/24/2020 8:22 Pager #[phone] * Thania Landaverde - 03/23/2020 1401 EDT Nutrition Note: Reason for Assessment: NPO/CL greater than/equal to 5 days Patient identified at risk due to NPO/CL day 6 today. Sounds to be having return of bowel function,NGT removed. Will continue to follow to see if needs full nutrition assessment. Thania Landaverde RD (Betsy), CD, CNSC B6 Dietitian Pager: [phone] * Jaguar Liang MD - 03/23/2020 0719 EDT Blue Surgery Progress Note Chief complaint: Colovesical Fistula Procedure: 03/17/2020 - Laparoscopic hand assisted sigmoid colectomy with rigid proctoscopy and flexible sigmoidoscopy 24 hour events: NGT Gloved - replaced to suction after filling 2gloves with 50cc residual Subjective: Doing great this morning. Had multiple loose bowel movements overnight. Says his belly is feeling alot better and denies nausea ever since NGT placed. Denies chest pain, burning with urination, frequency Objective: BP 118/89 (BP Cuff Location: Left arm, BP Patient Position: Sitting) Pulse 55 Temp 36.7 ??C (98.1 ??F) (Tympanic) Resp 18 Ht (!) 193 cm (76) Wt (!) 101.1 kg (222 lb 14.2 oz) SpO2 95% BMI 27.13 kg/m?? General: laying in bed, comfortable, pleasant Cardiovascular: regular rate and rhythm Respiratory: clear bilaterally, nonlabored, speaking in full sentences Abdominal: soft, distended, nontender, midline incision well approximated with joe-incision ecchymosis and slight swelling on left side. 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 IV Antibiotics started for SIRS postoperatively now completed. Remains afebrile with negative Blood cultures. Postoperative course complicatedfurther by ileus requiring NGT decompression. Now with return of bowel function. Plan: NPO, mIVF NGT clamp trial this morning, check residual ~1100 Continue multimodal pain control Home flomax Ambulate, OOB DVT ppx: Lovenox 40mg qhs Dispo: Pending return of bowel function. Jaguar Liang MD General Surgery PGY2 [id number] Associated attestation - Sara Mendez MD - 03/23/2020 4197 EDT Check drain creatinine, if ok, pull drain. I saw and examined the patient and discussed with the resident/medical student/EXCELSIOR PICKER team. I agree with the findings and plan of care documented in the resident's/medical student's/EXCELSIOR PICKER's note. Sara Mendez Division of General Surgery Colon and Rectal Surgery * Es Peace, PERSONNEL MONITOR - 03/22/2020 6049 EDT Surgery Daily Progress Note Patient: Jasbir Kate Admit Date: 03/17/2020 Date of Service: 03/22/2020 POD: 5 (03/17/2020) Procedure: Laparoscopic hand assisted sigmoid colectomy with rigid proctoscopy and flexible sigmoidoscopy with placement of 19Fr luis armando drain. CC: Colovesical fistula 24 Hour Events: ?? BM x 1 ?? Antibiotics discontinued ?? Afebrile; HDS Subjective: Patient reports that aside from the tube in his nose, he feels great. He is no longer feeling nauseated. He is passing flatus and had a BM this morning. Believes his abdomen is less distended. All positive ROS noted in subjective Objective: MAR reviewed Temp: [36.2 ??C (97.2 ??F)-37.2 ??C (99 ??F)] () Heart Rate: -- () Pulse: [52- 61] () Pulse From Oximetry: -- () Resp: [16-18] () BP: (116-168)/(72-94) () SpO2: [93 %-98 %] () Exam: General Appearance: alert, cooperative, no distress Lung: clear to auscultation bilaterally Heart: regular rate and rhythm, S1, S2 normal, no murmur, click, rub or gallop Abdomen: Softer, less distended but still moderately distended, tenderness mostly around incision. Extremities: WWP, no edema Skin: Skin color, temperature, turgor normal. No rashes or lesions Incision(s)/Wound(s): intact with ecchymosis, old bloody drainage at inferior aspect Drains: Intake/Output Summary (Last 24 hours) at 03/22/2020 0719 Last data filed at 03/22/2020 0625 Gross per 24 hour Intake 3054.33 ml Output 2205 ml Net 849.33 ml I&O By Type - 3 Shifts Including Current In: 2121.3 [P.O.:220; I.V.:1801.3; IV Piggyback:100] Out: 1535 [Urine:1000; Emesis/NG output:475; Drains:60] Assessment: Active Hospital Problems Diagnosis ??? *Colovesical fistula Added automatically from request for surgery [id number] ??? Diverticulitis Added automatically from request for surgery [id number] ?? Jasbir Kate is a 79 y.o. 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 Patient is now POD#5 s/p Laparoscopic hand assisted sigmoid colectomy with rigid proctoscopy and flexible sigmoidoscopy with placement of 19Fr luis armando drain. IV Antibiotics started for SIRS postoperatively now discontinued. No fevers overnight. Blood cultures (NGTD). Postoperative course complicated further by ileus requiring NGT decompression. Now with beginning return of bowel function. Plan: ?? Diet: NPO + mIVF ?? Clamp NGT for trial ?? Continue to monitor off of antibiotics ?? Cystogram today - if negative will remove kincaid catheter ?? ERAS pain medication as written ?? Home Flomax ?? Ambulate TID + IS DVT Prophylaxis: Ambulate, SCD's, Enoxaparin Es Peace, PERSONNEL MONITOR 03/22/2020 7:19 Pager #[phone] Associated attestation - Sara Mendez MD - 03/22/2020 1822 EDT + BM, continued flatus. Still distended, but much improved from Saturday. Will trial clamping, but will be slow to progress diet. Cystogram today. I saw and examined the patient and discussed with the resident/medical student/EXCELSIOR PICKER team. I agree with the findings and plan of care documented in the resident's/medical student's/EXCELSIOR PICKER's note. Sara Mendez Division of General Surgery Colon and Rectal Surgery * Jett Bone MD - 03/21/2020 0805 EDT Blue Surgery Progress Note Chief complaint: Colovesical Fistula Procedure: 03/17/2020 - Laparoscopic hand assisted sigmoid colectomy with rigid proctoscopy and flexible sigmoidoscopy with placement of 19Fr luis armando drain. 24 hour events: -Nausea and emesis -NGT placed and later advanced -NGT o/p 1650 overnight -NAEO Subjective: Feels much better this morning since having the NG tube placed yesterday. He has had no nausea and feels like his distension is improving. Continues to pass flatus but has not had a bowel movement. Denies fevers or chills. Ambulating without difficulty. Objective: BP 126/83 (BP Cuff Location: Left arm, BP Patient Position: Sitting) Pulse 52 Temp 36.7 ??C (98.1 ??F) (Tympanic) Resp 16 Ht (!) 193 cm (76) Wt (!) 101.1 kg (222 lb 14.2 oz) SpO2 97% BMI 27.13 kg/m?? General: sitting up in bed, pleasant, conversant HEENT: dry mucous membranes Cardiovascular: regular rate and rhythm Respiratory: clear bilaterally, nonlabored Abdominal: tense, distended, tympanic, midline incision well approximated with dermabond and surrounding ecchymosis. Drain with ss output. No rebound or guarding Extremities: wwp Micro: Urine culture NGTD I/O 24 hour: 1200cc UOP 1650cc NGT 60cc drain Assessment: Jasbir Kate is a 79 y.o. 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 Patient is now POD#4 s/p Laparoscopic hand assisted sigmoid colectomy with rigid proctoscopy and flexible sigmoidoscopy with placement of 19Fr luis armando drain. Febrile post-operatively concerning for UTI, but with no growth to date on cultures. Slow return of bowel function postoperatively with emesis necessitating NGT placement. Plan: NPO and mIVF while awaiting return of bowel function NGT to LCWS, continue today given high output Cystogram today vs. tomorrow Keep kincaid catheter in place until after cystogram Continue Ceftriaxone/flagyl through today, then d/c Home flomax Aggressive IS, pulm toilet, and ambulate DVT ppx: Ambulate, SCDs, Lovenox 40mg qhs Dispo: Pending return of bowel function Korin Srivastava MD General Surgery PGY1 [id number] Attestation statement: I saw and examined the patient with the resident/fellow. I agree with the findings and plan of care documented in the resident's/fellow's note. Abdomen soft, slightly distended. NGT today. IVF. Keep kincaid in. Cystogram tomorrow. -Jett Bone MD * Korin Srivastava MD - 03/20/2020 0645 EDT Blue Surgery Progress Note Chief complaint: Colovesical Fistula Procedure: 03/17/2020 - Laparoscopic hand assisted sigmoid colectomy with rigid proctoscopy and flexible sigmoidoscopy with placement of 19Fr luis armando drain. 24 hour events: -Nausea and emesis this AM Subjective: [place] nauseous this morning and spit up what he estimates was a mouthful of emesis/phlegm. Continues to have intermittent nausea. Has been passing a significant amount of flatus since early this morning but continues to feel distended. Otherwise no complaints. Pain is well controlled. Objective: BP (!) 155/78 Pulse 80 Temp 36.3 ??C (97.3 ??F) Resp 21 Ht (!) 193 cm (76) Wt (!) 101.1 kg (222 lb 14.2 oz) SpO2 95% BMI 27.13 kg/m?? General: sitting up in bed, pleasant, conversant HEENT: dry mucous membranes Cardiovascular: regular rate and rhythm Respiratory: clear bilaterally, nonlabored Abdominal: tense, distended, tympanic, midline incision well approximated with dermabond and surrounding ecchymosis. Drain with ss output. No rebound or guarding Extremities: wwp Labs: WBC 16.1 from 14.98 Hct 49.2 Micro: Urine culture NGTD I/O 24 hour: 3280cc IV 1250cc UOP 85cc drain Assessment: Jasbir Kate is a 79 y.o. 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 Patient is now POD#3 s/p Laparoscopic hand assisted sigmoid colectomy with rigid proctoscopy and flexible sigmoidoscopy with placement of 19Fr luis armando drain. Febrile post-operatively concerning for UTI, but with no growth to date on cultures. Slow return of bowel function postoperatively, now passing flatus but with nausea and emesis, improved s/p placement of NGT this AM. Plan: NPO and mIVF while awaiting return of bowel function NGT to LCWS Keep kincaid catheter in place until Saturday after cystogram Continue Ceftriaxone/flagyl through tomorrow Follow up blood cultures and urine cultures, NGTD Home flomax Aggressive IS, pulm toilet, and ambulate DVT ppx: Ambulate, SCDs, Lovenox 40mg qhs Dispo: Pending return of bowel function Korin Srivastava MD General Surgery PGY1 [id number] * Jaguar Liang MD - 03/19/2020 0716 EDT Blue Surgery Progress Note Chief complaint: Colovesical Fistula Procedure: 03/17/2020 - Laparoscopic hand assisted sigmoid colectomy with rigid proctoscopy and flexible sigmoidoscopy with placement of 19Fr luis armando drain. 24 hour events: No acute events Subjective: Belly is bigger and now having some burping this morning. No flatus or bowel movement yet. Has verydry mouth and asking for something to drink. Denies any chest pain or shortness of breath. Objective: BP 136/70 (BP Cuff Location: Right arm, BP Patient Position: Sitting) Pulse 72 Temp 37.4 ??C (99.3 ??F) (Tympanic) Resp 20 Ht (!) 193 cm (76) Wt (!) 101.1 kg (222 lb 14.2 oz) SpO2 93% BMI 27.13 kg/m?? General: sitting up in bed, pleasant, conversant HEENT: dry mucous membranes Cardiovascular: regular rate and rhythm Respiratory: clear bilaterally, nonlabored Abdominal: soft, distended, tympanic, midline incision well approximated with dermabond and surrounding ecchymosis. Drain with ss output. No rebound or guarding Extremities: wwp, Labs: WBC 16.1 Hct 49.2 Micro: Urine culture pending I/O 24 hour: 210cc PO 3090cc IV 1000cc UOP 55cc drain Assessment: Jasbir Kate is a 79 y.o. 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 Patient is now POD#2 s/p Laparoscopic hand assisted sigmoid colectomy with rigid proctoscopy and flexible sigmoidoscopy with placement of 19Fr luis armando drain. Febrile post-operatively concerning for UTI and awaiting cultures. Awaiting return of bowel function. Plan: NPO and mIVF while awaiting return of bowel function Will discuss placement of NGT today for distension and burping Keep kincaid catheter in place until Saturday after cystogram Continue Ceftriaxone/flagyl until cultures finalize Follow up blood cultures and urine cultures Home flomax Aggressive IS, pulm toilet, and ambulate DVT ppx: Ambulate, SCDs, Lovenox 40mg qhs Dispo: Pending return of bowel function Jaguar Liang MD General Surgery PGY2 [id number] Associated attestation - Sara Mendez MD - 03/19/2020 0849 EDT Softly distended, not nauseated. + distant bowel sounds. OOB today. If nausea/vomiting, NG tube. Keep kincaid for colovesicular fistula Cysto study Saturday/Saturday I saw and examined the patient and discussed with the resident/medical student/EXCELSIOR PICKER team. I agree with the findings and plan of care documented in the resident's/medical student's/EXCELSIOR PICKER's note. Sara Mendez Division of General Surgery Colon and Rectal Surgery * Muriel Gaona - 03/18/2020 5390 EDT Initial Case Management/Social Work Assessment and Discharge Plan/Readmission Risk Assessment REASON FOR ADMISSION: Colovesical fistula now POD 1 sigmoidectomy and fistula takedown Patient understands reason for admission: Yes PATIENT CONTACT INFO VERIFIED: Yes PATIENT ADDRESS VERIFIED: Yes([address] [place] [address]) LIVING ARRANGEMENTS AND ACCESSIBILITY ISSUES: Living Arrangements: Spouse / significant other Levels: 1 Bathroom located on bedroom level?: Yes What in home social supports are available to the patient? Spouse / significant other Is 24/7 care available? Yes ADVANCED DIRECTIVES, POA &/or COLST IN PLACE: Healthcare Directive: Yes, patient has advance directive for healthcare treatment Type of Healthcare Directive: Durable power of commercial litigation attorney for health care Copy in Chart: Yes, new copy in paper chart @ [facility] DIRECTIVES FOR FINANCES: TRANSPORTATION: Transportation: Family, Self CULTURAL, ZOROASTRIAN and/or LANGUAGE factors affecting health care/discharge planning: Spiritual/Cultural Requests: None Any factors affecting health care/discharge planning?: No Insurance in Place: Yes Medical Insurance: Yes Type of insurance: Medicare, Supplemental plan to Medicare Medicare type: A, B Supplemental: BC/BS Blue 66 DISCHARGE RISK ASSESSMENT: No risks identified Total # selected above: Score: Zero Tentative plan to address the risk of re-hospitalization for those at HIGH MODERATE RISK: RAPT TOOL: Age: >75 Gender: Male Ambulation distance: 2 or more blocks (600ft) Gait device: None Community Services: Home health, MOW, SASH-none at time of admission Will you live with someone who will care for you?: Yes RAPT Tool Score: 10 Patient expects to be discharged to: home SBIRT: SASQ (Single Alcohol Screening Question) How many times in the past year have you had 5 or more drinks in a single day?: Never How many times in the past year have you used an illegal drug or used a prescription medication fornon-medical reasons?: Never Intervention in place/initiated?: No, not indicated FUNCTIONAL STATUS: Activities patient requires assistance: None Assistive Device: None COMMUNITY RESOURCES/SUPPORTS: Primary Care Provider: Kylie Oglesby MD PCP Verified: Yes Specialists: Type of Home Health Services: Nurse visit DME Provider: Pharmacy: [id number] - [place], [place] - [address] [place] [address] Home Health: Referral to [facility] per pt preference Other: POST HOSPITAL TRANSITION PLAN: Pt lives with supportive spouse. Active and independent at baseline.CM following and will assist with dc plans as needed. Ami Gaona RN [facility] [id number] 03/18/2020 * Kobi Es N, PERSONNEL MONITOR - 03/18/2020 0800 EDT Surgery Daily Progress Note Patient: Jasbir Kate Admit Date: 03/17/2020 Date of Service: 03/18/2020 POD: 1 (03/17/2020) Procedure: Laparoscopic hand assisted sigmoid colectomy with rigid proctoscopy and flexible sigmoidoscopy with placement of 19Fr luis armando drain. ?? CC: Colovesical fistula 24 Hour Events: ?? OR to B6 ?? Febrile: 39.4 ?? Blood cultures x 2 ?? Urine cultures ?? IV Antibiotics: Ceftriaxone + Flagyl Subjective: Patient reports that he is doing well. Pain is well managed and mostly at incision. He has stood atthe bedside. Had night sweats without chills last night. Had chills at home a few nights ago. Didn't sleep. No nausea, no passing flatus, no burping. All positive ROS noted in subjective Objective: MAR reviewed Temp: [36.8 ??C (98.2 ??F)-39.4 ??C (102.9 ??F)] () Heart Rate: [57 BPM-67 BPM] () Pulse: [80] () Pulse From Oximetry: [56 BPM-80 BPM] () Resp: [10-23] () BP: (100-135)/(58-89) () SpO2: [92 %-100 %] () Exam: General Appearance: alert, cooperative, no distress Lung: clear to auscultation bilaterally Heart: regular rate and rhythm, S1, S2 normal, no murmur, click, rub or gallop Abdomen: Soft, distended with tympany, appropriately tender without rebound or guarding. Extremities: WWP, no edema Skin: Skin color, temperature, turgor normal. No rashes or lesions Incision(s)/Wound(s): CDI with dermabond, ecchymosis Drains: SS output - 197cc Intake/Output Summary (Last 24 hours) at 03/18/2020 0800 Last data filed at 03/18/2020 0545 Gross per 24 hour Intake 3275 ml Output 1047 ml Net 2228 ml I&O By Type - 3 Shifts Including Current In: 2425 [P.O.:480; I.V.:1795; IV Piggyback:150] Out: 787 [Urine:700; Drains:87] Micro: 03/17/20: Blood Cultures - pending 03/17/20: Urine Cultures - pending Assessment: Active Hospital Problems Diagnosis ??? *Colovesical fistula Added automatically from request for surgery [id number] ??? Diverticulitis Added automatically from request for surgery [id number] Jasbir Kate is a 79 y.o. 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 Patient is now POD#1 s/p Laparoscopic hand assisted sigmoid colectomy with rigid proctoscopy and flexible sigmoidoscopy with placement of 19Fr luis armando drain. Febrile overnight. Urine and blood cultures pending. IV Antibiotics started for presumed SIRS after takedown of colovesical fistula. ?? Plan: ?? Diet: Clear liquids + mIVF until drinking ?? Kincaid catheter in place until Saturday after cystogram ?? IV Ceftriaxone + Flagyl ?? Follow up blood and urine cultures ?? Bowel regimen ?? Home Flomax ?? Monitor and record all drain output ?? Aggressive IS, CDB and ambulate TID ?? Okay to shower DVT Prophylaxis: Ambulate, SCD's, Enoxaparin at Es [place], SUPA 03/18/2020 8:00 Pager #[phone] Associated attestation - Sara Mendez MD - 03/19/2020 0804 EDT Distended, but minimally tender. Making good urine. No further fevers, treating UTI (present on admission from colovesicular fistula). I saw and examined the patient and discussed with the resident/medical student/EXCELSIOR PICKER team. I agree with the findings and plan of care documented in the resident's/medical student's/EXCELSIOR PICKER's note. Sara Mendez Division of General Surgery Colon and Rectal Surgery * Korin Srivastava MD - 03/17/2020 1554 EDT SURGERY POST-OP CHECK SUBJECTIVE: Is having lower abdominal pain near his incision, but states the pain has been relatively well controlled. Has not been OOB. Not passing flatus. Has tolerated sips of water without nauseaor vomiting. [place] chilled a couple hours ago, but feels better now that he has more blankets. Denies chest pain and shortness of breath. OBJECTIVE: VS: Blood pressure 114/72, temperature (!) 38.6 ??C (101.5 ??F), temperature source Tympanic, resp.rate 18, weight (!) 101.1 kg (222 lb 14.2 oz), SpO2 98 %. I/O: Current Shift No intake/output data recorded. Gen: NAD, Alert and oriented x3, Conversing fluently and responding appropriately Pulm: CTAB, nonlabored breathing on oxymizer CV: RRR Abd: Soft, appropriately-tender to palpation in lower abdomen, moderately distended, no guarding orrebound tenderness Ext: WWP Incision/Dressing: lower midline incision C/D/I ASSESSMENT/PLAN: 79 y.o. male POD#0 s/p laparoscopic hand assisted sigmoid colectomy with rigid proctoscopy and flexible sigmoidoscopy. Febrile postoperatively but otherwise with no concerning vitalsand with a reassuring abdominal exam. Pain control with scheduled tylenol, PRN oxycodone, morphine; no NSAIDs Sips of clears, continue mIVFs Maintain kincaid catheter, cystogram Saturday with possible removal to follow Monitor fever curve, abdominal exam Encourage IS use Korin Srivastava MD 03/17/2020 15:55 Surgical Automation Technologist Pager #[phone] documented in this encounter H&P Notes * Sara Mendez MD - 03/17/2020 1756 EDT The preoperative history and physical which was performed within 30 days of this procedure has been reviewed and the clinically appropriate elements of the physical examination have been repeated. There are no changes to the documented history and physical or if so such changes are documented below COVID negative Sara Mendez MD 03/17/2020 7:20 Source Note - Sara Mendez MD - 03/01/2020 14:00 EDT Colorectal Surgery ?? Chief Complaint: colovesicular fistula--diverticulitis ? Patient has a h/o of frequent UTIs, BPH and DM with peripheral neuropathy. He began having issues with UTIs about 2 to 3 years ago. He states that they come on every 3-4 or 6 months. He has never hadto be admitted to the hospital for them. He has had 2 CT scans for evaluation. He is concurrently on Macrobid and tamsulosin to suppress the symptoms. He does state that when he urinates he tends to urinate gas in his stream. He does not see solids, but does occasionally see some mucus. Poppy seed test negative. He has been feeling well since I last saw him. He has been off antibiotics with minimal symptoms. ?? He has bowel movements about once daily. He denies constipation. He denies fecal incontinence but does occasionally have some urgency. He has no blood in his bowel movement or change in caliber. He has no significant change in his bowel movements. ?? In regards to symptoms of diverticulitis, patient does not endorse any history of left lower quadrant or suprapubic pain associated with fevers chills or change in bowel movements. ? He has been seen by the urology department at [facility] with Cathryn Monzon. She did a CT scan of the abdomen and pelvis with per rectum contrast that demonstrated some sigmoid colon inflammation, gas in the bladder, and some thickening of the bladder, and a loop of terminal ileum that traverses closely. CT scan also demonstrated some subcentimeter pulmonary nodules and with his history of smoking, it is recommended he undergo repeat CT scan in the next 3 to 6 months. ?? CT 04/2019 for flank pain reviewed by myself--does demonstrate a thickened bladder with gas in the bladder, no inflammation of the sigmoid colon. ?? SHx: former smoker, quit 25 years ago but has about a [id number] history. drinks wine daily. 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 He goes to the gym 3 times a week and either sits on the bike or the [employer] machine. He denies any chest pain with exertion, but does have some shortness of breath ifhe walks out 2 flights of stairs ?? Colonoscopy was about 2 to 3 years ago at [facility]. He states it was normal. He did have 1-2 polyps that he was age 61 at his first colonoscopy. 02/18/20: diverticulosis of sigmoid colon. ?? Surgical hx: appendectomy at age 6, tonsillectomy ?? No unintentional weight loss ?? Family history: Maternal grandfather of consumption, maternal aunt with severe arthritis. No history of cancer, no history of polyps or IBD. Patient does not know his father's side well and he was raised by his grandmother. ?? Review of Symptoms: ?? Gen: no fevers, chills, sweats, no recent weight loss HEENT: no migraines, no changes in vision, no hearing loss CV: no CP or palpitations, able to climb a flight of stairs w/o difficulty Pulm: no SOB, no hx of asthma or inhaler use GI: no hx of constipation or diarrhea : UTIs Musculoskeletal: no arthralgias or myalgias Neuro: no seizures, no numbness or tingling in the extremities Endocrine: no thyroid problems, no diabetes Psych: no anxiety or depression Heme: no hx of bleeding or bruising easily Skin: no hx of rashes, eczema, or psoriasis Mobility: ambulates w/o difficulty no cane / walker/ or wheelchair ? PMH PSH No past medical history on file. Past Surgical History: Procedure Laterality Date ??? APPENDECTOMY ? TONSILLECTOMY ? Social History Family history Social History ?? Tobacco Use ??? Smoking status: Former Smoker ? Packs/day: 2.00 ? Years: 30.00 ? Pack years: 60.00 ? Types: Cigarettes ? Last attempt to quit: 1994 ? Years since quittin.2 ??? Smokeless tobacco: Never Used Substance Use Topics ??? Alcohol use: Not on file ?? No family history on file. ? Current Outpatient Medications: cephALEXin (KEFLEX) 500 mg capsule nitrofurantoin (MACRODANTIN) 50 mg capsule nitrofurantoin, macrocrystal-monohydrate, (MACROBID) 100 mg capsule tamsulosin (FLOMAX) 0.4 mg capsule ?? No current facility-administered medications for this visit. ? Allergies ?? Allergies Allergen Reactions ??? Steroid [Corticosteroids (Glucocorticoids)] Other (See Comments) ? Paranoia, crazy ? Objective: Blood pressure 126/64, pulse 60, resp. rate 18, height (!) 193 cm (76), weight (!) 102.1 kg (225 lb). Physical Exam: Gen: awake, alert, and oriented x 3, NAD Neck: soft, no thyromegaly, no carotid bruits, no cervical lymphadenopathy CV: RRR no M/R/G Pulm: CTA bilat, no wheezes or rhonchi Abd: soft, nontender, nondistended, +bowel sounds, well-healed McBurney's incision Ext: warm, well perfused,no edema ?? Rectal exam deferred given plans for colonoscopy ? Data Review: Labs: CBC: No results found for: WBC, RBC, HGB, HCT, PLTCMP: Lab Results Component Value Date ?? NA 139 12/14/2019 ?? K 4.5 12/14/2019 ?? CL 104 12/14/2019 ?? CO2 26 12/14/2019 ?? BUN 16 12/14/2019 ?? CREATININE 0.83 12/14/2019 Cardiac: No results found for: CK, CKMBINDEX, TROPONINICoagulation: No results found for: PROTIME, INR, PTTABG: ? Assessment: Jasbir Kate is a(n) 79 y.o. 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 Plan: ?? We will plan for sigmoid colectomy with takedown of colovesicular fistula and possible small bowel resection. Explained that patient will keep a Kincaid catheter afterwards for 3 to 5 days and a drain at the site. Risks including infection, bleed, anastomotic leak were described to the patient. We discussed the need for a diverting loop ileostomy if we are concerned about his healing potential at the anastomosis. I quoted him somewhere in the 5% range risk of this. He will see his primary care physician for preoperative cardiovascular evaluation. She will also help us arrange for follow-up visit of his pulmonary nodule is seen on CT scan. Patient would be a good candidate for intrathecal morphine. documented in this encounter OR Notes * OR PreOp - Aliyah Mujica RN - 03/17/2020 0701 EDT COVID 19 Screening Perioperative PreOp Surgical Waiting Area Screening: Patient and Family will be screened at designated points of entry to [facility] Patient and Family will be screened again at entrance to Surgical Waiting Area by PreOp Screening RNs Smart phrase: .SWACOVIDS ??? Confirm patient and visitor have a mask (ensure if patient has homemade mask that it fits appropriately) ??? PreOp Screening RN asks screening questions including (recent or chronic): - Cough - Runny nose - SOB - Fever/Chills - Muscle pain - Chest congestion - Cold - Loss of taste/ smell - Diarrhea ? ? Temperature assessed: Temp > 38.0 is considered febrile ??? If patient or visitor screens positive for any symptoms: (consistent with entry screening procedures) 1. Ask the patient if they have been recently tested for COVID- 19 within the past 48hr and verify COVID test status 2. Confirm the symptom is not new within 48 hour/testing period - If negative result and no new symptoms since being testing, you do not need to page anesthesia toassess and should proceed as regular admission (NOT PUI) - If no result and/or new symptom since 48 hour/testing period proceed as PUI (Steps 3-4 below) 3. Place patient and family in consult room. 4. Page anesthesia charge to come and evaluate patient. After assessment the Anesthesia Charge needs to collaborate with the Surgeon to create a plan/recommendation as to whether surgery should proceed. See below for possible recommendations and guidelines. ??? Anesthesia in collaboration with Surgery Team recommends: ??? Surgery is deemed non emergent/non urgent. Proceed to cancel surgery: ??? Follow cancellation protocol - procedure not performed -Use COVID smart phrase to document planfor cancellation (.SWACOVIDS) ??? The patient needs formal testing for COVID at one of the ambulatory sites - Patient's primary care to order formal testing and monitor results ??? Surgery is deemed emergent/urgent. Proceed with surgery and treat patient as PUI: ??? Prior to starting patient care, Care team huddle to take place. Ensure everyone understands plan of course/care for patient. Care Team includes but not limited to: PreOp TL, PreOp bedside RN, PACU semiconductor packages leak tester, Anesthesia and Surgeon. Managers as needed. ??? For stable PUI patients, Droplet Precautions will be donned by staff. This assumes that NO aerosolizing procedure is being conducted. (See attachment of aerosolizing events) ??? PreOp TL confirm PreOp Care Team (Clean and Dirty RN) ensures negative pressure room and fully stocked isolation cart are available. PreOp Care team responsible for room set up. ??? PreOp Receiving (?ecoming dirty?? ) RN to receive patient from [facility] in Droplet Precaution PPE and transport patient to designated room. Ensure patient is wearing a mask prior to transport. ??? PreOp Screening RN to document using [employer] [facility] smart phrase (.SWACOVIDS) ??? If patient is stable PUI, Dirty RN is not required to stay in room for duration of care. PPE must be doffed prior to exiting the room, and hand hygiene performed. New PPE will need to be donned prior to reentering room- minimize exiting and reentering to conserve PPE. ??? If deemed patient needs to be treated as PUI- visitor must return to their vehicle and wait forphone call unless special circumstances (Child, cognitive impairment, and dry finisher). Pt temp: 36.5 Visitor Temp: Visitor Name: (If visitor is asked to wait in vehicle, please document visitor contacts in Epic) RN's to explain visitor policy: Visitor Policy OP- one visitor in WR, no visitors in PeriOp Exceptions: Child-1 parent, special needs- 1 caregiver IP- One visitor in WR, no visitors in PeriOp, visitor to leave after surgeon consult No children <16 yo in [facility]. * OR Surgeon - Sara Mendez MD - 03/17/2020 0000 EDT OPERATIVE REPORT SERVICE DATE: 03/17/2020 SURGEON: Sara Mendez MD QUALITY CONTROL OPERATOR: Es Peace APRN (No qualified resident was available due to education for this case.) PREOPERATIVE DIAGNOSIS: Sigmoid diverticulitis with colovesicular fistula. POSTOPERATIVE DIAGNOSIS: Sigmoid diverticulitis with colovesicular fistula. PROCEDURE: Laparoscopic hand-assisted sigmoid colectomy, SPY angiography, endoscopic placement of Resolution clip x2 on an arterial bleed on the anastomosis. ANESTHESIA: GETA SPECIMENS: Sigmoid colon. INDICATIONS: The patient is a 79-year-old male without a prior history of obvious diverticulitis, but developed pneumaturia and urinary tract infections that were recurrent. CT scan demonstrated air in the bladder and inflammation of the sigmoid colon. He underwent colonoscopy and was noted to have diverticulosis. FINDINGS: The patient had some adhesions in the right lower quadrant to his prior appendectomy incision. These did not need to be taken down for surgery. He did have a normal-appearing liver and gallbladder. His sigmoid colon was thickened and adherent to the dome of the bladder. There was no largehole in the bladder dome. The anastomosis had a well-perfused descending colon on SPY angiography and palpating the pulse in the mesentery. We had 2 complete donuts and a negative leak test. The mucosa proximal and distal to the anastomosis appeared pink and healthy but there was a small arterial bleed that was clipped with2 Resolution clips endoscopically. NARRATIVE: The patient was identified in the preoperative holding area. He was brought back to the operating room where a pre- and post-induction timeout was performed. Following induction, he was placed in lithotomy position with his right arm tucked and all pressure points offloaded. We prepped and draped him in the usual sterile fashion. We began by making a subxiphoid incision and dissected down to the anterior sheath of the fascia. This was incised sharply and stay stitches were placed on either side with 0 Vicryls. We then placed the Danilo port and insufflated the abdomen to 15 mmHg without any cardiopulmonary compromise. The laparoscope was then inserted and we noted no injury from the placement of the port. We inspected theabdomen noting some adhesions in the right lower quadrant. The liver surface appeared normal, as well as the gallbladder. We then placed our hand port inferior to the umbilicus. The sigmoid was notedto be thickened and had a small attachment to the bladder that was finger fractured. There was no ob vious defect left in the dome of the bladder. We then came up the white line of Toldt on the left side and mobilized the sigmoid colon in a lateral to medial fashion. We identified the left ureter. We noted that we would have adequate mobility without taking down the splenic flexure. We then continued our dissection down towards the pelvis after identifying the right ureter. We placed an EEA sizer from the anus through the rectum, but were unable to pass it completely due to some tortuosity. Ritchiehen entered the retrorectal space from above and dissected down towards the sacrum to mobilize therectum further after again identifying the right ureter. We were then able to place the EEA sizer up to the proximal aspect of the rectum as identified by splaying of the tiniae. We made a window in the mesentery at the proximal rectum and using an Endo KYLIE with a purple J load came across the rectum. There was a small remaining portion of the rectum that the stapler had not completely fired across and we used a purple straight load to come across the remainder of the rectum. We then took the me sentery just under the colon to avoid injury to the ureter and took the mesorectum to soft feeling,normal descending colon. We then desufflated the abdomen and extracorporealized our specimen. We took the remainder of the mesentery to normal feeling descending colon. We could palpate a nice pulse in the mesentery. We then injected ICG and using the Pinpoint, evaluated our perfusion to the level of the descending colon and we had excellent perfusion. A reusable purse-jose was placed across the colon at this level and a 2-0 Prolene was used to create the pursestring. We then removed the specimen after sharp excision. We then placed the 28 mm EEA anvil into the descending colon and tied down the pursestring. We next went from below and placed the EEA stapler from the anus to the top of the staple line. We had excellent mobility on our descending colon and there would be no tension on this anastomosis. The pin was placed anterior to the staple line through the rectum and coupled with the anvil. The stapler was tightened and eventually fired. We held the stapler in the fired position for 20 seconds after ensuring that the colon was not twisted and the ureter and iliacs were not compromised. The stapler was then removed and we inspected the donuts that were both intact. The descending colon was thenclamped and irrigation placed in the pelvis. We insufflated the rectum with a rigid proctoscope and noted no bubbling. I then switched with my nurse practitioner and went below and did a flexible sigmoidoscopy as she clamped the descending colon. There was 1 area of arterial bleed along the anastomosis and this was controlled with 2 Resolution clips endoscopically. We calculated the Gabriella score and decided that this patient did not require diversion. We irrigated extensively and ensured hemostasis. We left a 19-Romansh Luis Armando drain from the left lower quadrant into the pelvis to control for any urine leak. We would plan to keep the Kincaid in to keep the bladderdecompressed. We then changed our over gloves and switched to our closing tray. The subxiphoid fascia was closed with an 0 Vicryl in a figure-of-8 fashion. The fascia of the GelPort was closed with two #1 PDS in arunning fashion. We injected 0.5% Marcaine with epinephrine into the subcutaneous spaces and approximated the skin with 4-0 Monocryl and Dermabond on top. All counts were correct x2. Unless otherwise noted, there were no complications, no blood loss, no cultures obtained, no specimens removed, and no drains retained. Sara Mendez MD 11 42 AM / Sara Mendez MD jn Confirmation: [id number] Dictation ID: [id number] documented in this encounter Miscellaneous Notes * Plan of Care - Rosalina Corona RN - 03/26/2020 1132 EDT Nursing Discharge Note D: Patient noted with discharge orders to: home. A: Prescriptions e-scripted. Reviewed discharge instructions and prescriptions with Patient. IV d/c'd. Belongings collected and sent home with patient. Report called to [place] . Transition of care & AVS faxed. R: Patient verbalized understanding of discharge instructions and denied further questions. Transport wheeled patient down to lobby to meet ride. ROSALINA CORONA RN 03/26/2020 11:32 * Plan of Care - Rosalina Corona RN - 03/25/2020 1356 EDT Data: Assumed care @ 0700. A&Ox3. Denies pain or nausea. Ambulates independently in room & w/ contact guard in hallways. Tolerating diet. Guaze in place over old site, C/D/I. Action: Administered scheduled medications (see eMAR), encouraged ambulation, monitored patients pain and I/O's. Advanced to regular diet (low residue) per MD order. Response: Patient is currently sitting OOB in recliner. Denies pain or nausea at this time. Vital signs remain stable. Will continue to monitor. ROSALINA CORONA RN 03/25/2020 13:56 * Plan of Care - Moises Dent RN - 03/24/2020 1317 EDT Data: Pt on POD#7 from laparoscopic hand assisted sigmoid colectomy. Resolving ecchymosis around lap site, blanchable erythema around lower incision that extends to RLQ side only. Gauze in place overold MARCOS site. Action: Advanced pt to clear liquid diet per MD order. Administered scheduled flomax, protonix, 1x K+and calcium replacement (see eMar). Updated pt on plan of care as able and encouraged ambulation OOB. Response: Pt tolerating 100% of clear liquid diet. Pt continues to deny nausea and reporting tolerable pain. Call judd in reach, will continue to monitor. MOISES DENT RN 03/24/2020 13:17 * Plan of Care - Corey Bahena RN - 03/24/2020 0421 EDT Data: pt a/o x 3, NPO with 8oz ice or sips of clears per shift, old drain site CDI, no c/o pain at assumption of care. Action: clustered care, monitored for pain/nausea, assisted with ambulation prn, kept bed in lowestposition and call judd within reach. Response: pt slept well majority of shift, continue to monitor for pain/nausea, cluster care, keep bed in lowest position and call judd within reach. COREY BAHENA RN 03/24/2020 4:21 * Plan of Care - Moises Dent RN - 03/23/2020 1432 EDT Data: Pt on POD#6 from laparoscopic hand assisted sigmoid colectomy. NGT removed by this afternoon. Pt reporting passing flatus, having multiple bowel movements, and is voiding into urinal. Pt canhave 8oz ice chips or sips of clear liquids per shift. AM K+ 3.2. Action: Administered scheduled K+ replacement among other scheduled medications (see eMar). ChangedJP drain sponge and sent drain output sample for creatine test. Updated pt on plan of care as able and encouraged ambulation OOB. Response: Pt continues to deny nausea and reporting tolerable pain. Call judd in reach, will continue to monitor. MOISES DENT RN 03/23/2020 14:32 * Plan of Care - Renita Reid RN - 03/23/2020 1639 EDT Problem: Daily Care Plan Goals Goal: Care Plan Documentation Outcome: Ongoing Flowsheets (Taken 03/22/2020 2300) Area of Focus: Pain/ Comfort Goal This Shift: pain will be tolerable this shift Note: PAIN DATA: Patient with complaints of 0/10 pain, Patient states he is not in pain. NPO IVF ACTION: See eMAR: reviewed pain meds ordered with patient., non-pharmacologic interventions : patient is more mobile today. OOB, sitting up on the side of the bed, rings call judd appropriately NG toLCWS. Will reevaluate pain within 2 hours after intervention, Call team to evaluate pain meds as needed RESPONSE: patient now with pain 0 out of 10, will continue to monitor * Plan of Care - Keisha Shelley RN - 03/22/2020 1451 EDT Data: Pt A+Ox3. Denies pain throughout the day. Pt completed cystogram study this AM. Trial of NGTube to glove. Action: NGTube reattached to suction due to increased output. Kincaid cath removed. Pt with 3 BMs this AM. Response: Pt ambulating in hallway with walker, denies increased shortness of breath or dizzyness with increased activity. Pt denies needs, call judd within reach. KEISHA SHELLEY RN 03/22/2020 14:51 * Plan of Care - Renita Reid RN - 03/22/2020 0353 EDT Problem: Daily Care Plan Goals Goal: Care Plan Documentation Outcome: Ongoing Flowsheets (Taken 03/21/2020 2300) Area of Focus: Sleep Goal This Shift: patient will have a good night's rest Note: Data: VSS. Pt denied needs at midnight assessment. NPO 8oz ice chips per shift. IVF. NG to LCWS. Patient denies pain when asked, Are you in pain? Action: Monitor VS, comfort and promote quiet sleep environment. Offer assist with repositioning and ADLS. Response: Pt sleeping without S&S of distress. Will continue to monitor. * Plan of Care - Moises Dent RN - 03/21/2020 8685 EDT Data: Pt on POD#4 from laparoscopic hand assisted sigmoid colectomy. Abdomen rotund, firm, distended, ecchymosis present around lower incision and lap site with skin adhesive. Scant serosanguinous drainage from lower incision and MARCOS drain. Pt reporting tolerable 1/10 abdominal pain and c/o intermittent headache, denying nausea. Action: Administered scheduled medications, holding flomax due to NPO status and NGT. Changed MARCOS drain sponge. Updated pt on plan of care as able and encouraged ambulation OOB. Response: 150 mL brown output from NGT, pt continues to deny nausea and reporting tolerable pain. Pt to tentatively have cystogram tomorrow 03/22/2020 prior to having kincaid catheter removed. Call bellin reach, will continue to monitor. MOISES DENT RN 03/21/2020 14:55 * Plan of Care - Moises Dent RN - 03/20/2020 1236 EDT Data: Pt on POD#3 from laparoscopic hand assisted sigmoid colectomy. Pt reporting nausea and vomiting upon assumption of care at 07:00. Abdomen rotund, firm, distended, ecchymosis present around lower incision and lap site with skin adhesive. Pt reporting tolerable 1/10 abdominal pain. MD placed NGT this AM. Action: Administered scheduled medications, holding scheduled tylenol and flomax due to NPO status and poorly controlled nausea and vomiting. Administered PRN zofran and compazine for nausea and vomiting (see eMar). Updated pt on plan of care as able. Response: Pt reporting improved nausea after placement of NGT and administration of PRN zofran and compazine. 800mL bilious, green output from NGT. Call judd in reach, will continue to monitor. MOISES DENT RN 03/20/2020 12:36 * Plan of Care - Corey Bahena RN - 03/20/2020 2265 EDT Data: pt a/o x 3, contact guard assist OOB with walker, abdomen firm and distended. Kincaid in place and draining. Action: clustered care, monitored for pain/nausea, kept bed in lowest position, call judd within reach and gave scheduled medications. Response: pt slept well majority of shift, continue to monitor for pain/nausea, cluster care, keep bed in lowest position and call judd within reach. COREY BAHENA RN 03/20/2020 4:58 * Plan of Care - Sofie Hogan RN - 03/19/2020 1401 EDT Problem: Daily Care Plan Goals Goal: Care Plan Documentation Outcome: Ongoing Flowsheets (Taken 03/19/2020 4251) Area of Focus: GI//Elimination Goal This Shift: return of bowel function Note: Data: Pt distended, very hypoactive bowel sounds, denies nausea. Action: Encouraged mobility, served as CG/assist out of bed. Pt sat in chair most of the day, walked to the shower, walked in the halls. Using IS appropriately, pulling to 1500. Response: Pt now back in bed, has not passed flatus but continues to deny nausea. Call judd in reach, will continue to monitor. SOFIE HOGAN RN 03/19/2020 14:00 * Plan of Care - Corey Bahena RN - 03/19/2020 0413 EDT Data: pt a/o x 3, s/p lap hand assisted sigmoid colectomy with rigid proctoscopy. Kincaid in place and draining. Minimal c/o pain, NPO, MARCOS x [address] Action: clustered care, paged team about bloated feeling, team aware, gave scheduled and prn medications, bed in lowest position and call judd within reach. Response: pt slept well majority of shift, continue to monitor for pain/nausea, cluster care, keep bed in lowest position and call judd within reach. COREY BAHENA RN 03/19/2020 4:13 * Plan of Care - Corey Bahena RN - 03/18/2020 0335 EDT Data: pt a/o x 3, s/p lap hand assisted sigmoid colectomy with rigid proctoscopy and flexible sigmoidoscopy. Kincaid in place and draining, minimal c/o pain, clear liquid diet, MARCOS [address] Action: clustered care, monitored for pain/nausea, gave scheduled medications, bed in lowest position and call judd within reach. Response: pt slept well majority of shift, continue to monitor for pain/nausea, cluster care, keep bed in lowest position and call jdud within reach. COREY BAHENA RN 03/18/2020 3:35 * Plan of Care - Dalia Lawrence RN - 03/17/2020 1816 EDT Data: the pt is alert and oriented X 3, calm and cooperative. Reports pain as 4- 5/10. Denies need for intervention. Pt s/p small bowel resection r/t colovesicular fistula. Dressing at incision site is CDI. One 14Fr MARCOS drain-140mL emptied since the procedure. Kincaid is patent and draining(see flowsheet). Pt temp at 1557 was 100.5 oral. MD notified. At 1741 temp was 102.[address] MD [address] Dr[address] Liang came to the floor. Blood cultures, Urine, and abx ordered. UTI suspected. CTM Action: Frequent monitoring, medications per order, call judd and belongings within reach. Response: Pt remained safe on the unit this shift. 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 Surgeons * Sara Mendez MD - Primary Procedure Summary Anesthesia: General ASA: ASA status not filed in the log. Estimated Blood Loss: 50cc Total IV Fluids: 700 mL Urine Output: 50cc Sheryl LDAs: PIV Staff: Engineering Associate: Valeria Gaspar RN Scrub Person: Adonay Madrid RN Patient Fixture Designer: Alexandrea García Indications: Tony Kate is an 79 y.o. male who is having surgery for colovesical fistula Findings: Sigmoid easily removed from bladder and resected. Indocyanine green administered with adequate perfusion on SPY. EEA performed with intact donuts. Negative air leak on rigid proctoscopy. Small vessel bleeding at anastomosis clipped on flexible sigmoidoscopy. Raw surface bleeding at mesorectum. Hemostasis upon leaving abdomen. 19Fr Luis Armando drain left in pelvis. Complications: None; patient tolerated the procedure well. Disposition: PACU - hemodynamically stable. Condition: stable Specimens Collected: Sigmoid colon Plan: Clear liquids overnight + mIVF Kincaid to stay in place until Saturday - Cystogram prior to removal No NSAIDS Monitor urine output Received intrathecal morphine Received Labetalol during case Electronically signed by SUPA Anthony Score Age 2(<60=0, 60-69=1, 70-79=2, >80=4) Gender 1(Female=0, Male=1) ASA 1(I=0, II=1, III=3, IV=6) BMI 1(19-24=0, 25-30=1, >30/<19=3, wt loss >5kg/6m=3) Intoxication 0 (None=0, any smoking=1, EtOH >3d/day=1, steroids w/in 14d=4) Neoadjuvant Tx 0 (None=0, Radiation=1, Chemoradiation=2) Distance of anastomosis from anal Verge 0 (>10cm=0, 5-10cm=3, <5cm=6) Additional Procedures 0 (No=0, Yes=1) Blood loss 0 (<500=0, 500-1000=1, 0378-0254=3, >2000=6) Duration of procedure 1(<2:00=0, 2:00-2:59=1, 3:00-3:59=2, >4:00=4) TOTAL: 6 Body mass index is 27.13 kg/m??. documented in this encounter Plan of Treatment Scheduled Referrals Name Type Priority Associated Diagnoses Order Schedule PROVIDER FOLLOW-UP INSTRUCTIONS Outpatient Referral Routine Ordered: 03/25/2020 PROVIDER FOLLOW-UP INSTRUCTIONS Outpatient Referral Routine Ordered: 03/25/2020 AMB CONS/FOLLOW UP HOME HEALTH SERVICES Outpatient Referral Routine Colovesical fistula Ordered: 03/25/2020 documented as of this encounter Procedures Procedure Name Priority Date/Time Associated Diagnosis Comments COMPLETE BLOOD COUNT AND DIFFERENTIAL Routine 03/24/2020 5:36 EDT BUN Routine 03/24/2020 5:36 EDT MAGNESIUM Routine 03/24/2020 5:36 EDT CREATININE Routine 03/24/2020 5:36 EDT CALCIUM Routine 03/24/2020 5:36 EDT ELECTROLYTES Routine 03/24/2020 5:36 EDT CREATININE, FLUID Routine 03/23/2020 12:34 EDT HN LAB CBC SMEAR REVIEW Today 03/23/2020 7:48 EDT COMPLETE BLOOD COUNT AND DIFFERENTIAL Routine 03/23/2020 7:48 EDT BUN Routine 03/23/2020 7:48 EDT MAGNESIUM Routine 03/23/2020 7:48 EDT CREATININE Routine 03/23/2020 7:48 EDT CALCIUM Routine 03/23/2020 7:48 EDT ELECTROLYTES Routine 03/23/2020 7:48 EDT FL CYSTOGRAM Routine 03/22/2020 9:43 EDT COMPLETE BLOOD COUNT Routine 03/19/2020 6:39 EDT BUN Routine 03/19/2020 6:39 EDT CREATININE Routine 03/19/2020 6:39 EDT ELECTROLYTES Routine 03/19/2020 6:39 EDT COMPLETE BLOOD COUNT STAT 03/18/2020 18:25 EDT COMPLETE BLOOD COUNT Routine 03/18/2020 16:02 EDT SCREENING GLUCOSE Routine 03/18/2020 6:55 EDT COMPLETE BLOOD COUNT AND DIFFERENTIAL Routine 03/18/2020 6:55 EDT BUN Routine 03/18/2020 6:55 EDT MAGNESIUM Add-On 03/18/2020 6:55 EDT CREATININE Routine 03/18/2020 6:55 EDT CALCIUM Add-On 03/18/2020 6:55 EDT ELECTROLYTES Routine 03/18/2020 6:55 EDT BACTERIAL CULTURE, BLOOD Routine 03/17/2020 18:20 EDT BACTERIAL CULTURE, BLOOD Routine 03/17/2020 18:13 EDT URINE CHEMICAL (DIP) & SEDIMENT (MICRO) WITH REFLEX TO CULTURE Routine 03/17/2020 17:59 EDT BACTERIAL CULTURE, URINE Today 03/17/2020 17:59 EDT SURGICAL PATHOLOGY Routine 03/17/2020 10:30 EDT COLECTOMY, PARTIAL, LAPAROSCOPIC, WITH ANASTOMOSIS 03/17/2020 8:26 EDT Colovesical fistula Diverticulitis Special Needs lithotomy, right arm tuckedRAS, Pinpoint SPYEnhanced recovery protocolpediatric colonoscope and tower documented in this encounter Results * BUN (03/24/2020 5:36 EDT) BUN 14 10 - 26 mg/dL 03/24/2020 6:25 EDT [facility] Blood VENOUS BLOOD / Unknown Venipuncture / Unknown 03/24/2020 5:36 EDT 03/24/2020 5:56 EDT Bahman Perez MD CHEMISTRY & BLOOD GA S ORDERABLES [facility] [address] [place] [address] * (ABNORMAL) CALCIUM (03/24/2020 5:36 EDT) Pathologist [facility] Calcium 8.2(L) 8.5 - 10.5 mg/dL 03/24/2020 6:25 EDT [facility] Calculated Calcium 9.2 8.5 - 10.5 mg/dL 03/24/2020 6:25 EDT [facility] Blood VENOUS BLOOD / Unknown Venipuncture / Unknown 03/24/2020 5:36 EDT 03/24/2020 5:56 EDT Bahman Perez MD CHEMISTRY & BLOOD GA S ORDERABLES [facility] [address] [place] [address] * (ABNORMAL) COMPLETE BLOOD COUNT AND DIFFERENTIAL (03/24/2020 5:36 EDT) WBC 8.68 4.00 - 10.40 K/cmm 03/24/2020 6:02 EDT [facility] RBC 4.38 4.36 - 5.78 M/cmm 03/24/2020 6:02 EDT [facility] Hemoglobin 14.1 13.8 - 17.3 gm/dL 03/24/2020 6:02 EDT [facility] HCT 42.2 39.5 - 50.2 % 03/24/2020 6:02 [facility] MCV 96(H) 81 - 95 fl 03/24/2020 6:02 [facility] MCH 32.2 27.6 - 33.0 pg 03/24/2020 6:02 [facility] MCHC 33.4 32.8 - 36.4 gm/dL 03/24/2020 6:02 [facility] RDW-CV 12.2 <14.2 % 03/24/2020 6:02 [facility] RDW-SD 43.7 <46.0 fl 03/24/2020 6:02 [facility] PLT 265 141 - 377 K/cm 03/24/2020 6:02 [facility] MPV 10.2 9.5 - 12.7 fl 03/24/2020 6:02 [facility] % Neutrophils 72.3 % 03/24/2020 6:02 [facility] % Lymphocytes 17.1 % 03/24/2020 6:02 [facility] % Monocytes 7.1 % 03/24/2020 6:02 [facility] % Eosinophils 2.6 % 03/24/2020 6:02 [facility] % Basophils 0.3 % 03/24/2020 6:02 [facility] % Immature Grans 0.6 % 03/24/20 20 6:02 [facility] Absolute Neutrophils 6.27 2.20 - 8.85 K/cmm 03/24/2020 6:02 [facility] Absolute Lymphocytes 1.48 1.09 - 3.30 K/cmm 03/24/2020 6:02 [facility] Absolute Monocytes 0.62 0.10 - 0.80 K/cmm 03/24/2020 6:02 [facility] Absolute Eosinophils 0.23 0.03 - 0.61 K/cmm 03/24/2020 6:02 [facility] ABS Basophils 0.03 0.01 - 0.11 K/cmm 03/24/2020 6:02 EDT [facility] Absolute Immature Grans 0.05 0.00 - 0.06 K/cmm 03/24/2020 6:02 EDT [facility] Type of Differential: Auto 03/24/2020 6:02 EDT [facility] Blood VENOUS BLOOD / Unknown Venipuncture / Unknown 03/24/2020 5:36 EDT 03/24/2020 5:54 EDT Bahman Perez MD PACKAGES & DNA PROBE ORDERABLES Performing Organization Address [facility] Co de Phone Number [facility] [address] [place] [address] * CREATININE (03/24/2020 5:36 EDT) Creatinine 0.66 0.66 - 1.25 mg/dL 03/24/2020 6:25 EDT [facility] eGFR 93 >60 mL/min/1.7 3m2 03/24/2020 6:25 EDT [facility] Comment:eGFR calculated ernesto g CKD-EPI equation for non- Americans. Multiply eGFR by 1.16 for patients. Blood VENOUS BLOOD / Unknown Venipuncture / Unknown 03/24/2020 5:36 EDT 03/24/2020 5:56 EDT Bahman Perez MD CHEMISTRY & BLOOD GA S ORDERABLES Performing Organization Address [facility] de Phone Number [facility] [address] [place] [address] * ELECTROLYTES (03/24/2020 5:36 EDT) Sodium 139 136 - 145 mEq/L 03/24/2020 6:25 EDT [facility] Potassium 3.9 3.5 - 5.0 mEq/L 03/24/2020 6:25 T [facility] Chloride 108 96 - 110 mEq/L 03/24/2020 6:25 EDT [facility] CO2 Total 23 22 - 32 mEq/L 03/24/2020 6:25 EDT [facility] Blood VENOUS BLOOD / Unknown Venipuncture / Unknown 03/24/2020 5:36 EDT 03/24/2020 5:56 EDT Bahman Perez MD CHEMISTRY & BLOOD GA S ORDERABLES Performing Organization Address City/[facility]/ZIP Co de Phone Number [facility] [address] [place] [address] * MAGNESIUM (03/24/2020 5:36 EDT) Magnesium 2.4 1.7 - 2.8 mg/dL 03/24/2020 6:25 EDT [facility] Blood VENOUS BLOOD / Unknown Venipuncture / Unknown 03/24/2020 5:36 EDT 03/24/2020 5:56 EDT Bahman Perez MD CHEMISTRY & BLOOD GA S ORDERABLES Performing Organization Address [facility] Co de Phone Number [facility] [address] [place] [address] * CREATININE, FLUID (03/23/2020 12:34 EDT) Creatinine, Fluid 0.66 See Note mg/dL 03/23/2020 14:55 EDT [facility] Comment: Peritoneal Fluid Reference range unavailable. Clinical correlation required. This Fluid Creatinine assay was developed and its performance characteristics determined by [facility]. ??It has not been cleared or approved by the [place] Food and Drug Administration. Fluid PERITONEAL FLUID / Unknown 03/23/2020 12:34 EDT 03/23/2020 14:35 EDT Jaguar Liang MD GEN LAB UNIT COLLECT ORDERABLES Performing Organization Address [facility]/ZIP Co de Phone Number [facility] [address] [place] [address] * HN LAB CBC SMEAR REVIEW (03/23/2020 7:48 EDT) Differential Comment Slide was examined by a technologist to verify the WBC and/or platelet count. 03/23/2020 8:42 EDT [facility] Blood VENOUS BLOOD / Unknown Venipuncture / Unknown 03/23/2020 7:48 EDT 03/23/2020 8:05 EDT Clayton Reynoso MD HEMATOLOGY & PF4 OR DERABLES [facility] [address] [place] [address] * (ABNORMAL) COMPLETE BLOOD COUNT AND DIFFERENTIAL (03/23/2020 7:48 EDT) WBC 10.38 4.00 - 10.40 K/cmm 03/23/2020 8:43 EDT [facility] RBC 4.91 4.36 - 5.78 M/cmm 03/23/2020 8:43 T [facility] Hemoglobin 16.0 13.8 - 17.3 gm/dL 03/23/2020 8:43 EDT [facility] HCT 46.9 39.5 - 50.2 % 03/23/2020 8:43 [facility] MCV 96(H) 81 - 95 fl 03/23/2020 8:43 T [facility] MCH 32.6 27.6 - 33.0 pg 03/23/2020 8:43 T [facility] MCHC 34.1 32.8 - 36.4 gm/dL 03/23/2020 8:43 [facility] RDW-CV 12.3 <14.2 % 03/23/2020 8:43 T [facility] RDW-SD 42.5 <46.0 fl 03/23/2020 8:43 EDT [facility] PLT 03/23/2020 8:43 T [facility] Comment:Unreportable due to presence of platelet clumps. MPV 03/23/2020 8:43 [facility] Comment:Not Available % Neutrophils 77.3 % 03/23/2020 8:43 [facility] % Lymphocytes 13.8 % 03/23/2020 8:43 [facility] % Monocytes 6.8 % 03/23/2020 8:43 T [facility] % Eosinophils 1.2 % 03/23/2020 8:43 EDT [facility] % Basophils 0.4 % 03/23/2020 8:43 T [facility] % Immature Grans 0.5 % 03/23/20 20 8:43 [facility] Absolute Neutrophils 8.03 2.20 - 8.85 K/cmm 03/23/2020 8:43 [facility] Absolute Lymphocytes 1.43 1.09 - 3.30 K/cmm 03/23/2020 8:43 T [facility] Absolute Monocytes 0.71 0.10 - 0.80 K/cmm 03/23/2020 8:43 T [facility] Absolute Eosinophils 0.12 0.03 - 0.61 K/cmm 03/23/2020 8:43 T [facility] ABS Basophils 0.04 0.01 - 0.11 K/cmm 03/23/2020 8:43 T [facility] Absolute Immature Grans 0.05 0.00 - 0.06 K/cmm 03/23/2020 8:43 T [facility] Type of Differential: Auto 03/23/2020 8:43 T [facility] Blood VENOUS BLOOD / Unknown Venipuncture / Unknown 03/23/2020 7:48 EDT 03/23/2020 8:05 EDT Clayton Reynoso MD PACKAGES & DNA PROB E ORDERABLES Performing Organization Address City/State/[facility] Co de Phone Number [facility] [address] [place] [id number] * CALCIUM (03/23/2020 7:48 EDT) Calcium 8.7 8.5 - 10.5 mg/dL 03/23/2020 8:14 EDT [facility] Calculated Calcium 9.0 8.5 - 10.5 mg/dL 03/23/2020 8:14 T [facility] Blood VENOUS BLOOD / Unknown Venipuncture / Unknown 03/23/2020 7:48 EDT 03/23/2020 7:55 EDT Clayton Reynoso MD CHEMISTRY & BLOOD G ORDERABLES Performing Organization Address [facility] Co de Phone Number [facility] [address] [place] [address] * MAGNESIUM (03/23/2020 7:48 EDT) Magnesium 2.5 1.7 - 2.8 mg/dL 03/23/2020 8:14 EDT [facility] Blood VENOUS BLOOD / Unknown Venipuncture / Unknown 03/23/2020 7:48 EDT 03/23/2020 7:55 EDT Clayton Reynoso MD CHEMISTRY & BLOOD G ORDERABLES Performing Organization Address [facility] Phone Number [facility] [address] [place] [address] * (ABNORMAL) ELECTROLYTES (03/23/2020 7:48 EDT) Sodium 143 136 - 145 mEq/L 03/23/2020 8:14 EDT [facility] Potassium 3.2(L) 3.5 - 5.0 mEq/L 03/23/2020 8:14 EDT [facility] Chloride 109 96 - 110 mEq/L 03/23/2020 8:14 EDT [facility] CO2 Total 25 22 - 32 mEq/L 03/23/2020 8:14 EDT [facility] Blood VENOUS BLOOD / Unknown Venipuncture / Unknown 03/23/2020 7:48 EDT 03/23/2020 7:55 EDT Clayton Reynoso MD CHEMISTRY & BLOOD G ORDERABLES Performing Organization Address [facility] Co de Phone Number [facility] [address] [place] [address] * (ABNORMAL) CREATININE (03/23/2020 7:48 EDT) Creatinine 0.62(L) 0.66 - 1.25 mg/dL 03/23/2020 8:14 EDT [facility] eGFR 95 >60 mL/min/1.7 3m2 03/23/2020 8:14 EDT [facility] Comment:eGFR calculated ernesto cee CKD-EPI equation for non- Americans. Multiply eGFR by 1.16 for patients. Blood VENOUS BLOOD / Unknown Venipuncture / Unknown 03/23/2020 7:48 EDT 03/23/2020 7:55 EDT Clyaton Reynoso MD CHEMISTRY & BLOOD G ORDERABLES Performing Organization Address [facility] Co de Phone Number [facility] [address] [place] [address] * BUN (03/23/2020 7:48 EDT) BUN 16 10 - 26 mg/dL 03/23/2020 8:14 EDT [facility] Blood VENOUS BLOOD / Unknown Venipuncture / Unknown 03/23/2020 7:48 EDT 03/23/2020 7:55 EDT Clayton Reynoso MD CHEMISTRY & BLOOD G ORDERABLES Performing Organization Address [facility] de Phone Number [facility] [address] [place] [address] * FL CYSTOGRAM (03/22/2020 9:43 EDT) Anatomical Region Laterality Modality Body Radio Fluoroscop y 03/22/2020 10:0 2 EDT Impressions 03/22/2020 10:02 EDT 1. ??Only a small volume of contrast (100 cc) was able to be instilled as there was incontinence around the Kincaid catheter beyond this volume. 2. ??No evidence of leak or fistula. 3. ??Multiple bladder diverticuli. I have personally reviewed the images and the above interpretation and agree with the findings. 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 FINDINGS: Re Dye Hand KUB film of the abdomen shows the presence of 2 surgical clips and an anastomosis within the pelvis. A left-sided drain is also in place, terminating in the midline of the pelvis. 100cc of water-soluble contrast were instilled into the patient's bladder through a Kincaid catheter. There is no evidence of leak, however, patient was incontinent around the Kincaid catheter, therefore the target volume of 300 cc was not able to be reached. Numerous small bladder diverticula are present. No contrast was seen exiting the pelvic drain, and no communication to other structures in the pelvis was visible. No reflux was noted into the ureters. Dr. Osullivan was present for the procedure. Procedure Note Jaime Hatch MD - 03/22/2020 FL CYSTOGRAM 03/22/2020 9:00 AM CLINICAL HISTORY: Status post sigmoidectomy for complicated diverticulitiswith colovesical fistula, evaluate for extravasation of contrast frombladder Comparison: CT abdomen pelvis 12/14/2019. FINDINGS: Re Dye Hand KUB film of the abdomen shows the presence of 2 surgical clips andan anastomosis within the pelvis. A left-sided drain is also in place,terminating in the midline of the pelvis. 100cc of water-soluble contrast were instilled into the patient's bladderthrough a Kincaid catheter. There is no evidence of leak, however, patientwas incontinent around the Kincaid catheter, therefore the target volume of300 cc was not able to be reached. Numerous small bladder diverticula are present. No contrast was seenexiting the pelvic drain, and no communication to other structures in thepelvis was visible. No reflux was noted into the ureters. Dr. Osullivan was present for the procedure. IMPRESSION 1. Only a small volume of contrast (100 cc) was able to be instilled asthere was incontinence around the Kincaid catheter beyond this volume. 2. No evidence of leak or fistula. 3. Multiple bladder diverticuli. I have personally reviewed the images and the above interpretation andagree with the findings. Korin Srivastava MD IMG FLUOROSCOPY KAT FRAIRE * (ABNORMAL) COMPLETE BLOOD COUNT (03/19/2020 6:39 EDT) WBC 16.17(H) 4.00 - 10.40 K/cmm 03/19/2020 6:54 EDT [facility] RBC 5.19 4.36 - 5.78 M/cmm 03/19/2020 6:54 EDT [facility] Hemoglobin 16.7 13.8 - 17.3 gm/dL 03/19/2020 6:54 EDT [facility] HCT 49.2 39.5 - 50.2 % 03/19/2020 6:54 EDT [facility] MCV 95 81 - 95 fl 03/19/2020 6:54 T [facility] MCH 32.2 27.6 - 33.0 pg 03/19/2020 6:54 EDT [facility] MCHC 33.9 32.8 - 36.4 gm/dL 03/19/2020 6:54 EDT [facility] RDW-CV 12.4 <14.2 % 03/19/2020 6:54 EDT [facility] RDW-SD 43.0 <46.0 fl 03/19/2020 6:54 T [facility] PLT 233 141 - 377 K/cmm 03/19/2020 6:54 [facility] MPV 10.4 9.5 - 12.7 fl 03/19/2020 6:54 T [facility] Blood VENOUS BLOOD / Unknown Venipuncture / Unknown 03/19/2020 6:39 EDT 03/19/2020 6:44 EDT Clayton Reynoso MD HEMATOLOGY & PF4 OR DERABLES [facility] [address] [place] [address] * (ABNORMAL) ELECTROLYTES (03/19/2020 6:39 EDT) Sodium 138 136 - 145 mEq/L 03/19/2020 7:21 EDT [facility] Potassium 4.1 3.5 - 5.0 mEq/L 03/19/2020 7:21 EDT [facility] Chloride 106 96 - 110 mEq/L 03/19/2020 7:21 EDT [facility] CO2 Total 20(L) 22 - 32 mEq/L 03/19/2020 7:21 EDT [facility] Blood VENOUS BLOOD / Unknown Venipuncture / Unknown 03/19/2020 6:39 EDT 03/19/2020 6:51 EDT Clayton Reynoso MD CHEMISTRY & BLOOD G ORDERABLES Performing Organization Address [facility] de Phone Number [facility] [address] [place] [address] * (ABNORMAL) CREATININE (03/19/2020 6:39 EDT) Creatinine 0.63(L) 0.66 - 1.25 mg/dL 03/19/2020 7:21 EDT [facility] eGFR 94 >60 mL/min/1.7 3m2 03/19/2020 7:21 EDT [facility] Comment:eGFR calculated ernesto cee CKD-EPI equation for non- Americans. Multiply eGFR by 1.16 for patients. Blood VENOUS BLOOD / Unknown Venipuncture / Unknown 03/19/2020 6:39 EDT 03/19/2020 6:51 EDT Clayton Reynoso MD CHEMISTRY & BLOOD G ORDERABLES Performing Organization Address [facility] Co de Phone Number [facility] [address] [place] [address] * BUN (03/19/2020 6:39 EDT) BUN 14 10 - 26 mg/dL 03/19/2020 7:21 EDT [facility] Blood VENOUS BLOOD / Unknown Venipuncture / Unknown 03/19/2020 6:39 EDT 03/19/2020 6:51 EDT Clayton Reynoso MD CHEMISTRY & BLOOD G ORDERABLES Performing Organization Address [facility] Co de Phone Number [facility] [address] [place] [address] * (ABNORMAL) COMPLETE BLOOD COUNT (03/18/2020 18:25 EDT) WBC 14.98(H) 4.00 - 10.40 K/cmm 03/18/2020 18:39 EDT [facility] RBC 4.98 4.36 - 5.78 M/cmm 03/18/2020 18:39 [facility] Hemoglobin 16.4 13.8 - 17.3 gm/dL 03/18/2020 18:39 T [facility] HCT 47.5 39.5 - 50.2 % 03/18/2020 18:39 [facility] MCV 95 81 - 95 fl 03/18/2020 18:39 [facility] MCH 32.9 27.6 - 33.0 pg 03/18/2020 18:39 [facility] MCHC 34.5 32.8 - 36.4 gm/dL 03/18/2020 18:39 [facility] RDW-CV 12.5 <14.2 % 03/18/2020 18:39 [facility] RDW-SD 43.9 <46.0 fl 03/18/2020 18:39 [facility] PLT 203 141 - 377 K/cmm 03/18/2020 18:39 [facility] MPV 10.3 9.5 - 12.7 fl 03/18/2020 18:39 [facility] Blood VENOUS BLOOD / Unknown Venipuncture / Unknown 03/18/2020 18:25 EDT 03/18/2020 18:31 EDT Clayton Reynoso MD HEMATOLOGY & PF4 OR DERABLES [facility] [address] [place] [address] * (ABNORMAL) COMPLETE BLOOD COUNT (03/18/2020 16:02 EDT) WBC 16.21(H) 4.00 - 10.40 K/cmm 03/18/2020 16:52 T [facility] RBC 5.27 4.36 - 5.78 M/cmm 03/18/2020 16:52 EDT [facility] Hemoglobin 17.2 13.8 - 17.3 gm/dL 03/18/2020 16:52 EDT [facility] HCT 50.9(H) 39.5 - 50.2 % 03/18/2020 16:52 EDT [facility] MCV 97(H) 81 - 95 fl 03/18/2020 16:52 EDT [facility] MCH 32.6 27.6 - 33.0 pg 03/18/2020 16:52 EDT [facility] MCHC 33.8 32.8 - 36.4 gm/dL 03/18/2020 16:52 T [facility] RDW-CV 12.5 <14.2 % 03/18/2020 16:52 T [facility] RDW-SD 45.0 <46.0 fl 03/18/2020 16:52 EDT [facility] PLT 226 141 - 377 K/cmm 03/18/2020 16:52 T [facility] MPV 10.4 9.5 - 12.7 fl 03/18/2020 16:52 T [facility] Blood VENOUS BLOOD / Unknown Venipuncture / Unknown 03/18/2020 16:02 EDT 03/18/2020 16:32 EDT [employer] HEMATOLOGY & PF4 ORD ERABLES [facility] [address] [place] [address] * (ABNORMAL) CALCIUM (03/18/2020 6:55 EDT) Calcium 8.4(L) 8.5 - 10.5 mg/dL 03/18/2020 18:27 EDT [facility] Calculated Calcium 8.9 8.5 - 10.5 mg/dL 03/18/2020 18:27 EDT [facility] Blood VENOUS BLOOD / Unknown Venipuncture / Unknown 03/18/2020 6:55 EDT 03/18/2020 7:04 EDT Clayton Reynoso MD CHEMISTRY & BLOOD G ORDERABLES Performing Organization Address City/[facility] Co de Phone Number [facility] [address] [place] [address] * MAGNESIUM (03/18/2020 6:55 EDT) Pathologist [facility] Magnesium 2.1 1.7 - 2.8 mg/dL 03/18/2020 18:27 EDT [facility] Blood VENOUS BLOOD / Unknown Venipuncture / Unknown 03/18/2020 6:55 EDT 03/18/2020 7:04 EDT Clayton Reynoso MD CHEMISTRY & BLOOD G ORDERABLES Performing Organization Address [facility] de Phone Number [facility] [address] [place] [address] * (ABNORMAL) COMPLETE BLOOD COUNT AND DIFFERENTIAL (03/18/2020 6:55 EDT) [facility] WBC 11.94(H) 4.00 - 10.40 K/cmm 03/18/2020 7:14 [facility] RBC 4.65 4.36 - 5.78 M/cmm 03/18/2020 7:14 [facility] Hemoglobin 15.3 13.8 - 17.3 gm/dL 03/18/2020 7:14 [facility] HCT 44.3 39.5 - 50.2 % 03/18/2020 7:14 [facility] MCV 95 81 - 95 fl 03/18/2020 7:14 [facility] MCH 32.9 27.6 - 33.0 pg 03/18/2020 7:14 [facility] MCHC 34.5 32.8 - 36.4 gm/dL 03/18/2020 7:14 [facility] RDW-CV 12.5 <14.2 % 03/18/2020 7:14 [facility] RDW-SD 43.6 <46.0 fl 03/18/2020 7:14 [facility] PLT 184 141 - 377 K/cmm 03/18/2020 7:14 [facility] MPV 10.0 9.5 - 12.7 fl 03/18/2020 7:14 [facility] % Neutrophils 76.9 % 03/18/2020 7:14 [facility] % Lymphocytes 14.4 % 03/18/2020 7:14 [facility] % Monocytes 8.1 % 03/18/2020 7:14 [facility] % Eosinophils 0.1 % 03/18/2020 7:14 [facility] % Basophils 0.2 % 03/18/2020 7:14 [facility] % Immature Grans 0.3 % 03/18/20 7:14 [facility] Absolute Neutrophils 9.18(H) 2.20 - 8.85 K/cmm 03/18/2020 7:14 [facility] Absolute Lymphocytes 1.72 1.09 - 3.30 K/cmm 03/18/2020 7:14 [facility] Absolute Monocytes 0.97(H) 0.10 - 0.80 K/cmm 03/18/2020 7:14 [facility] Absolute Eosinophils 0.01(L) 0.03 - 0.61 K/cmm 03/18/2020 7:14 [facility] ABS Basophils 0.02 0.01 - 0.11 K/cmm 03/18/2020 7:14 [facility] Absolute Immature Grans 0.04 0.00 - 0.06 K/cmm 03/18/2020 7:14 [facility] Type of Differential: Auto 03/18/2020 7:14 [facility] Blood VENOUS BLOOD / Unknown Venipuncture / Unknown 03/18/2020 6:55 EDT 03/18/2020 7:06 EDT [employer] NP PACKAGES & DNA PROBE ORDERABLES [facility] [address] [place] [address] * CREATININE (03/18/2020 6:55 EDT) Creatinine 0.79 0.66 - 1.25 mg/dL 03/18/2020 7:35 EDT [facility] eGFR 86 >60 mL/min/1.7 3m2 03/18/2020 7:35 EDT [facility] Comment:eGFR calculated ernesto cee CKD-EPI equation for non- Americans. Multiply eGFR by 1.16 for patients. Blood VENOUS BLOOD / Unknown Venipuncture / Unknown 03/18/2020 6:55 EDT 03/18/2020 7:04 EDT [employer] CHEMISTRY & BLOOD GA S ORDERABLES [facility] [address] [place] [address] * BUN (03/18/2020 6:55 EDT) BUN 12 10 - 26 mg/dL 03/18/2020 7:35 EDT [facility] Blood VENOUS BLOOD / Unknown Venipuncture / Unknown 03/18/2020 6:55 EDT 03/18/2020 7:04 EDT [employer] CHEMISTRY & BLOOD GA S ORDERABLES [facility] [address] [place] [address] * (ABNORMAL) ELECTROLYTES (03/18/2020 6:55 EDT) Sodium 135(L) 136 - 145 mEq/L 03/18/2020 7:35 EDT [facility] Potassium 4.2 3.5 - 5.0 mEq/L 03/18/2020 7:35 EDT [facility] Chloride 104 96 - 110 mEq/L 03/18/2020 7:35 EDT [facility] CO2 Total 23 22 - 32 mEq/L 03/18/2020 7:35 EDT [facility] Blood VENOUS BLOOD / Unknown Venipuncture / Unknown 03/18/2020 6:55 EDT 03/18/2020 7:04 EDT [employer] CHEMISTRY & BLOOD GA S ORDERABLES Performing Organization Address [facility] de Phone Number [facility] [address] [place] [address] * (ABNORMAL) SCREENING GLUCOSE (03/18/2020 6:55 EDT) Glucose, Screening 107(H) 70 - 100 mg/dL 03/18/2020 7:35 EDT [facility] Blood VENOUS BLOOD / Unknown Venipuncture / Unknown 03/18/2020 6:55 EDT 03/18/2020 7:04 EDT [employer] CHEMISTRY & BLOOD GA S ORDERABLES Performing Organization Address [facility] de Phone Number [facility] [address] [place] [address] * BACTERIAL CULTURE, BLOOD (03/17/2020 18:20 EDT) Organism ID No Growth at 5 days 03/22/2020 19:15 EDT [facility] Blood VENOUS BLOOD / Unknown Blood Culture / Unknown 03/17/2020 18:20 EDT 03/17/2020 19:10 EDT Jaguar Liang MD MICROBIOLOGY - GENER AL ORDERABLES Performing Organization Address [facility] de Phone Number [facility] [address] [place] [address] * BACTERIAL CULTURE, BLOOD (03/17/2020 18:13 EDT) Organism ID No Growth at 5 days 03/22/2020 19:15 EDT [facility] Blood VENOUS BLOOD / Unknown Blood Culture / Unknown 03/17/2020 18:13 EDT 03/17/2020 19:10 EDT Jaguar Liang MD MICROBIOLOGY - GENER AL ORDERABLES [facility] [address] [place] [address] * BACTERIAL CULTURE, URINE (03/17/2020 17:59 EDT) Organism ID No Growth 03/19/2020 8:17 [facility] Urine URINE SPECIMEN OBTAINED BY SINGLE CATHETERIZATION OF URINARY BLADDER / Unknown Urine Collect / Unknown 03/17/2020 17:59 EDT 03/17/2020 18:35 EDT Jaguar Liang MD MICROBIOLOGY - GENER AL ORDERABLES Performing Organization Address City/[facility]/ZIP Co de Phone Number [facility] [address] [place] [address] * (ABNORMAL) URINE CHEMICAL (DIP) & SEDIMENT (MICRO) WITH REFLEX TO CULTURE (03/17/2020 17:59 EDT) Color UA Yellow Colorless, Yellow 03/17/2020 18:35 [facility] Clarity UA Clear Clear 03/17/2020 18:35 [facility] Glucose UA Negative Negative 03/17/2020 18:35 [facility] Bilirubin UA Negative Negative 03/17/2020 18:35 [facility] Ketones UA 1+(A) Negative 03/17/2020 18:35 [facility] Specific [place], Urine 1.028 1.001 - 1.035 03/17/2020 18:35 [facility] Blood UA 3+(A) Negative 03/17/2020 18:35 [facility] Urobilinogen UA Normal Normal mg/dL 020 18:35 [facility] Nitrite UA Negative Negative 03/17/2020 18:35 [facility] Leukocyte Esterase UA 2+(A) Negative 03/17/2020 18:35 [facility] Protein UA 2+(A) Negative 03/17/2020 18:35 [facility] pH, UA 6.0 4.6 - 8.0 03/17/2020 18:35 [facility] Urine RBC Count, Auto >50(A) 0 - 2 Cells/HPF 03/17/2020 18:35 EDT [facility] Urine WBC Count, Auto >50(A) 0 - 3 Cells/HPF 03/17/2020 18:35 EDT [facility] Urine Squamous Count, Auto None Seen None Seen Cells/HPF 03/17/2020 18:35 [facility] Urine Hyaline Cast Count, Auto <=10 <=10 Casts/LPF 03/17/2020 18:35 T [facility] Urine Bacteria Count, Auto None Seen None Seen Bacteria/HPF 03/17/2020 18:35 [facility] Urine URINE SPECIMEN OBTAINED BY SINGLE CATHETERIZATION OF URINARY BLADDER / Unknown Urine Collect / Unknown 03/17/2020 17:59 EDT 03/17/2020 18:05 EDT Narrative [facility] - 03/17/2020 18:35 EDT A Urine Culture test has been reflexively ordered based on result criteria from the Urine Sediment Analysis. Urine Sediment Analysis results are unreliable on urines that are unrefrigerated for >2 hrs or refrigerated >8 hrs. Jaguar Liang MD URINALYSIS ORDERABLE S Performing Organization Address City/State/[facility] Co de Phone Number [facility] [address] [place] [address] * SURGICAL PATHOLOGY (03/17/2020 10:30 EDT) Final Diagnosis A. 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 - Negative for dysplasia and malignancy. - Surgical resection margins viable. 03/22/2020 15:14 [facility] at 1514 Attestation There was significant resident/fellow involvement in the diagnostic evaluation of this case. By the signature below, the attending physician certifies that they have personally conducted a gross and/or microscopic examination of the described specimens and rendered or confirmed the above diagnosis. 03/22/2020 15:14 [facility] at 1514 Clinical History Colovesical fistula; diverticulitis 03/22/2020 15:14 EDT [facility] Gross Description A. Received in normal saline labelled with proper patient identification (initials N, J) and sigmoid colon is a 14.0 cm in length by 4.5 cm in maximum diameter intact segment of sigmoid colon with 1 stapled margin and 1 open margin. Also received in the container is a separate colon donut (1.0 cm in length by 2.5 cm in maximum diameter). The serosa is pink-ku and unremarkable. On opening, the lumen is filled with ku green fecal material. The mucosa is ku-akbar with the usual folds. Sectioning reveals multiple diverticula scattered throughout (ranging up to 0.5 cm in greatest dimension). The wall thickness ranges from 0.2 cm to 0.6 cm in greatest dimension. No masses or lesions are identified. Sectioning through the surrounding mesentery reveals lobulated, yellow cut surfaces. Able Bodied Watchman sections are submitted as follows: BLOCK HENSON A1- stapled margin, en face A2-A3- open margin, bisected, en face A4-A7- sections of diverticula A8- section of separate donut Kim Jonesuc 03/18/2020 8:05 03/22/2020 15:14 EDT [facility] Resident/Vish w: Chance Crouch MD 03/22/2020 15:14 EDT [facility] Scanned Images 03/22/2020 15:14 EDT [facility] Tissue ENTIRE SIGMOID COLON / Unknown 03/17/2020 10:30 EDT 03/17/2020 16:33 EDT Sara Mendez MD PATHOLOGY ORDERABLES [facility] [address] [place] [address] documented in this encounter Visit Diagnoses Diagnosis Colovesical fistula- Primary Intestinovesical fistula Colovesical fistula Intestinovesical fistula Diverticulitis Diverticulitis of colon (without mention of hemorrhage) documented in this encounter Admitting Diagnoses Diagnosis Colovesical fistula Intestinovesical fistula Diverticulitis Diverticulitis of colon (without mention of hemorrhage) documented in this encounter Administered Medications Inactive Administered Medications - up to 3 most recent administrations Medication Order MAR Action Action Date Dose Rate Site acetaminophen (TYLENOL) tablet 1,000 mg 1,000 mg, oral, PRE-OP ONCE, 1 dose, On Sat03/17/20 at 0745, Routine, Preprocedure Given 03/17/2020 7:59 EDT 1,000 mg acetaminophen (TYLENOL) tablet 1,000 mg 1,000 mg, oral, EVERY 6 HOURS, First dose on Sat03/17/20 at 1415, Until Discontinued, Routine Given 03/25/2020 20:19 EDT 1,000 mg Given 03/25/2020 13:50 EDT 1,000 mg Given 03/25/2020 6:39 EDT 1,000 mg calcium gluconate 2,000 mg in dextrose 5% (D5W) 50 mL IVPB 2,000 mg (2 g), intravenous, Administer over 60 Minutes, NOW X1, 1 dose, On Sat03/18/20 at 1915, STAT Given 03/18/2020 19:00 EDT 2,000 mg calcium gluconate 2,000 mg in dextrose 5% (D5W) 50 mL IVPB 2,000 mg (2 g), intravenous, Administer over 60 Minutes, NOW X1, 1 dose, On Sat03/24/20 at 0945, Routine Given 03/24/2020 11:12 EDT 2,000 mg cefTRIAXone (ROCEPHIN) 2,000 mg in sodium chloride (NS MBP) 50 mL IVPB 2,000 mg, intravenous, Administer over 30 Minutes, DAILY, 5 doses, First dose on Sat03/17/20 at 1815, Last dose on Sat03/21/20 at 0900, Routine Given 03/21/2020 9:18 EDT 2,000 mg Given 03/20/2020 8:31 EDT 2,000 mg Given 03/19/2020 8:06 EDT 2,000 mg chlorhexidine gluconate 2 % cloth 1 Each 1 Each, topical, PRE-OP MULTIPLE, Starting on Sat03/17/20 at 0718, Until Sat03/17/20 at 1343, Other, Routine, Preprocedure Given by Other 03/17/2020 8:03 EDT 1 Each diatrizoate meglumine (HYPAQUE) 30 % solution 300 mL 300 mL, intra-catheter, Once in imaging, 1 dose, Starting on Sat03/22/20 at 0942, Until Sat03/22/20 at 0943, Routine Given 03/22/2020 9:43 EDT 100 mL docusate sodium (COLACE) capsule 100 mg 100 mg, oral, 2 TIMES DAILY, First dose on Sat03/18/20 at 0900, Until Discontinued, Routine Given 03/18/2020 9:02 EDT 100 mg electrolyte-A (PLASMALYTE-A) solution at 100 mL/hr, intravenous, CONTINUOUS, Starting on Tuyet 03/17/20 at 1315, Until Tuyet 03/24/20 at 1718, Routine New Bag 03/24/2020 10:08 EDT 100 mL/h r Rate Documented 03/24/2020 7:19 EDT 100 mL/hr New Bag 03/23/2020 17:53 EDT 100 mL/hr enoxaparin (LOVENOX) injection 40 mg 40 mg, subcutaneous, AT BEDTIME, First dose on Sat03/18/20 at 2100, Until Discontinued, Routine Given 03/25/2020 20:19 EDT 40 mg Given 03/24/2020 20:39 EDT 40 mg Given 03/23/2020 20:21 EDT 40 mg fentaNYL citrate (PF) injection 25-50 mcg 25-50 mcg, intravenous, EVERY 5 MIN PRN, Starting on Tuyet 03/17/20 at 1115, Until Tuyet 03/17/20 at 1343, Pain, Routine, Recovery (only) Given 03/17/2020 1 2:36 EDT 25 mcg Given 03/17/2020 12:30 EDT 25 mcg gabapentin (NEURONTIN) capsule 900 mg 900 mg, oral, PRE-OP ONCE, 1 dose, On Tuyet 03/17/20 at 0745, Routine, Preprocedure Given 03/17/2020 7:59 EDT 900 mg granisetron HCL (KYTRIL) injection 1 mg 1 mg, intravenous, PRE-OP ONCE, 1 dose, On Tuyet 03/17/20 at 0745, Routine, Preprocedure Given 03/17/2020 8:15 EDT 1 mg lactated ringers (LR) infusion 25 mL/hr, intravenous, CONTINUOUS, Starting on Tuyet 03/17/20 at 0745, Until Tuyet 03/17/20 at 1256, Routine, Preprocedure Continued by Anesthesia 03/17/2020 9:39 EDT New Bag 03/17/2020 8:20 EDT 25 mL/hr 25 mL/hr metronidazole (FLAGYL) infusion 500 mg 500 mg, intravenous, Administer over 30 Minutes, PRE-OP ONCE, 1 dose, On Tuyet 03/17/20 at 0745, Routine, Preprocedure Given 03/17/2020 8:22 EDT 500 mg metronidazole (FLAGYL) infusion 500 mg 500 mg, intravenous, Administer over 30 Minutes, EVERY 8 HOURS, 13 doses, First dose on Tuyet 03/17/20 at 1800, Last dose on 03/21/20 at 1800, Routine Given 03/21/2020 17:50 EDT 500 mg Given 03/21/2020 9:32 EDT 500 mg Given 03/21/2020 1:49 EDT 500 mg morphine injection 1-2 mg 1-2 mg, intravenous, EVERY 3 HOURS PRN, Starting on Tuyet 03/17/20 at 1353, Until 03/23/20 at 1258, Pain, Routine Given 03/18/2020 16:07 EDT 1 mg Given 03/18/2020 12:45 EDT 1 mg ondansetron (PF) (ZOFRAN) injection 4 mg 4 mg, intravenous, EVERY 4 HOURS PRN, Starting on 03/20/20 at 0817, Until 03/26/20 at 1410, Nausea, Routine Given 03/20/2020 10:18 EDT 4 mg oxyCODONE (ROXICODONE) immediate release tablet 5-10 mg 5-10 mg, oral, EVERY 30 MINUTES PRN, 2 doses, Starting on Tuyet 03/17/20 at 1115, Until Tuyet 03/17/20 at 1343, Pain, Routine, Recovery (only) Given 03/17/2020 12:30 EDT 5 mg pantoprazole (PROTONIX) injection 40 mg 40 mg, intravenous, DAILY, First dose on Sat03/18/20 at 1215, Until Discontinued, Routine Given 03/25/2020 9:53 EDT 40 mg Given 03/24/2020 10:08 EDT 40 mg Given 03/23/2020 9:12 EDT 40 mg pantoprazole (PROTONIX) tablet 40 mg 40 mg, oral, DAILY, First dose on 5/30/20 at 0900, Until Discontinued, Routine Given 03/26/2020 8:38 EDT 40 mg polyethylene glycol 3350 (MIRALAX) packet 17 g 17 g, oral, DAILY, First dose on Sat03/18/20 at 0900, Until Discontinued, Routine Given 03/18/2020 9:03 EDT 17 g potassium chloride in water infusion 10 mEq 10 mEq, intravenous, NOW X1, 1 dose, On Sat03/24/20 at 0945, Routine Given 03/24/2020 12:20 EDT 10 mEq potassium chloride in water infusion 20 mEq 20 mEq, intravenous, EVERY 2 HOURS, 4 doses, First dose on Sat03/23/20 at 0830, Last dose on Sat03/23/20 at 1430, Routine Given 03/23/2020 16:06 EDT 20 mEq Given 03/23/2020 13:46 EDT 20 mEq Given 03/23/2020 11:28 EDT 20 mEq prochlorperazine edisylate (COMPAZINE) injection 10 mg 10 mg, intravenous, EVERY 6 HOURS PRN, Starting on Sat03/18/20 at 1158, Until Sat03/24/20 at 0604, Nausea, Routine Given 03/20/2020 8:32 EDT 10 mg Given 03/18/2020 21:57 EDT 10 mg Given 03/18/2020 12:18 EDT 10 mg scopolamine (TRANSDERM-SCOP) 1 mg over 3 days patch 1 Patch 1 Patch, transdermal, Administer over 72 Hours, EVERY 72 HOURS, First dose on Sat03/18/20 at 1645, Until Discontinued, Routine Patch Applied 03/18/2020 16:42 EDT 1 Patch Behind Right Ear sodium chloride 0.9 % (flush) flush 3 mL 3 mL, intravenous, PRN, Starting on Sat03/18/20 at 0800, Until Sat03/26/20 at 1410, Line Care, Routine tamsulosin (FLOMAX) capsule 0.4 mg 0.4 mg, oral, DAILY, First dose on Sat03/18/20 at 0900, Until Discontinued, Routine Given 03/26/2020 8:38 EDT 0.4 mg Given 03/25/2020 9:53 EDT 0.4 mg Given 03/24/2020 10:08 EDT 0.4 mg documented in this encounter Discontinued Medications Medication Sig Discontinue Reason Start Date End Da te bisacodyL (DULCOLAX) 5 mg EC tablet Patient to take as directed day before surgery. 03/01/2020 03/17/2020 metroNIDAZOLE (FLAGYL) 500 mg tablet Patient to take one tablet at 3 PM, 4 PM and 10 PM day before surgery. 03/01/2020 03/17/2020 neomycin 500 mg tablet Patient to take 2 tablets at 3 PM, 4 PM and 10 PM day before surgery. 03/01/2020 03/17/2020 chlorhexidine gluconate 4 % (E-Z SCRUB 107) sponge Use as directed in pre-op showering instructions. 03/01/2020 03/17/2020 polyethylene glycol (GOLYTELY) 236-22.74-6.74 -5.86 gram suspension Patient to follow one time directions as directed by Dr Mendez office for surgery prep 03/01/2020 03/17/2020 documented as of this encounter Active and Recently Administered Medications Times are shown in EDT. Scheduled Medication Order 03/24/2020 03/25/2020 03/26/2020 acetaminophen (TYLENOL) tablet 1,000 mg 1,000 mg, oral, EVERY 6 HOURS, First dose on Tuyet 03/17/20 at 1415, Until Discontinued, Routine 0203 (Not Given - Provider: Corey Bahena RN - Reason: Patient/family refused)0858 (Not Given - Provider: Moises Dent RN - Reason: Patient/family refused)1548 (Not Given - Provider: Moises Dent RN - Reason: Patient/family refused)2040 (Not Given - Provider: Thania Nowak RN - Reason: Patient/family refused) 0031 (Given - Provider: Thania Nowak RN)0639 (Given - Provider: Thania Nowak RN)1350 (Given - Provider: Rosalina Corona, VIVEK)2019 (Given - Provider: Natasha Baldwin RN) 0357 (Not Given - Provider: Natasha Baldwin RN - Reason: Patient/family refused)0839 (Not Given - Provider: Rosalina Corona RN - Reason: Patient/family refused) calcium gluconate 2,000 mg in dextrose 5% (D5W) 50 mL IVPB (COMPLETED) 2,000 mg (2 g), intravenous, Administer over 60 Minutes, NOW X1, 1 dose, On Tuyet 5/28/20 at 0945, Routine 1112 (Given - Provider: Moises Dent, VIVEK) enoxaparin (LOVENOX) injection 40 mg 40 mg, subcutaneous, AT BEDTIME, First dose on Sat03/18/20 at 2100, Until Discontinued, Routine 203 (Given - Provider: Thania Nowak, RN) 2019 (Given - Provider: Natasha Baldwin RN) pantoprazole (PROTONIX) injection 40 mg (CANCELED) 40 mg, intravenous, DAILY, First dose on Sat03/18/20 at 1215, Until Discontinued, Routine 1008 (Given - Provider: Moises Dent, VIVEK) 0953 (Given - Provider: Rosalina Corona, VIVEK) pantoprazole (PROTONIX) tablet 40 mg 40 mg, oral, DAILY, First dose on Sat03/26/20 at 0900, Until Discontinued, Routine 0838 (Given - Provider: Rosalina Corona, VIVEK) potassium chloride in water infusion 10 mEq (COMPLETED) 10 mEq, intravenous, NOW X1, 1 dose, On Sat03/24/20 at 0945, Routine 1220 (Given - Provider: Moises Dent, VIVEK) tamsulosin (FLOMAX) capsule 0.4 mg 0.4 mg, oral, DAILY, First dose on Sat03/18/20 at 0900, Until Discontinued, Routine 1008 (Given - Provider: Moises Dent RN) 0953 (Given - Provider: Rosalina Corona, VIVEK) 0838 (Given - Provider: Rosalina Corona RN) Continuous Medication Order 03/24/2020 03/25/2020 03/26/2020 electrolyte-A (PLASMALYTE-A) solution (CANCELED) at 100 mL/hr, intravenous, CONTINUOUS, Starting on Tuyet 03/17/20 at 1315, Until Sat03/24/20 at 1718, Routine 0719 (Rate Documented - Provider: Moises Dent, VIVEK)1008 (New Bag - Provider: Moises Dent, VIVEK)1725 (Completed - Provider: Antonio Inman RN) PRN Medication Order 03/24/2020 03/25/2020 03/26/2020 ondansetron (PF) (ZOFRAN) injection 4 mg 4 mg, intravenous, EVERY 4 HOURS PRN, Starting on Sat03/20/20 at 0817, Until 03/26/20 at 1410, Nausea, Routine sodium chloride 0.9 % (flush) flush 3 mL(Linked Group 1) 3 mL, intravenous, PRN, Starting on Sat03/18/20 at 0800, Until 03/26/20 at 1410, Line Care, Routine Linked Groups Order Group 1: Change IV to Saline Lock (CANCELED) Routine, ONE TIME, On Sat03/18/20 at 0800, For 1 occurrence And sodium chloride 0.9 % (flush) flush 3 mLJump to med 3 mL, intravenous, PRN, Starting on Sat03/18/20 at 0800, Until 03/26/20 at 1410, Line Care, Routine documented in this encounter Orders Medications Ordered That Emanuel ht Not Have Been Administered Count Last Ordered Date First Ordered Date calcium gluconate 1,000 mg i n dextrose 5% (D5W) 50 mL IVPB 1 03/24/2020 melatonin tablet 5 mg 1 03/24/2020 ondansetron (PF) (ZOFRAN) injection 4 mg 2 03/18/2020 03/17/2020 atropine 0.1 mg/mL syringe 0.5 mg 1 020 bupivacaine-EPINEPHrine (PF) 0.5 %-1:200,000 injection 1 03/17/2020 ceFAZolin (ANCEF) syringe 2 g 1 03/17/2020 dexaMETHasone (DECADRON) injection 8 mg 1 0 03/17/2020 heparin injection 5,000 Units 1 03/17/2020 lactated ringers (LR) infusion 1 03/17/2020 lidocaine (PF) 10 mg/mL (1 % ) injection 2 mg 1 03/17/2020 nalbuphine (NUBAIN) injection 2.5 mg 1 02/26 naloxone (NARCAN) injection 0.1 mg 1 2019 naloxone (NARCAN) injection 0.2 mg 1 2019 oxyCODONE (ROXICODONE) immed iate release tablet 5-10 mg 1 03/17/2020 sodium chloride 0.9 % (flush) flush 3 mL 1 03/17/2020 sodium chloride 0.9 % irrigation 1 03/17/20 20 Diet Count Last Ordered Date First Orde red Date DISCHARGE DIET 1 03/25/2020 Nursing Count Last Ordered Date First Orde red Date ACTIVITY INSTRUCTIONS 1 03/25/2020 BATHING INSTRUCTIONS 1 03/25/2020 DRIVING INSTRUCTIONS 1 03/25/2020 WOUND CARE INSTRUCTIONS 1 03/25/2020 KINCAID CATHETER - DISCONTINUE 1 03/22/2020 CATHETER CARE 1 03/17/2020 DRAIN CARE 1 03/17/2020 IV Count Last Ordered Date First Orde red Date IV REQUEST 1 03/20/2020 Admission Count Last Ordered Date First Orde red Date ADMIT TO INPATIENT 1 03/17/2020 Transfer Count Last Ordered Date First Orde red Date TEACHING SERVICE 1 03/17/2020 Discharge Count Last Ordered Date First Orde red Date DISCHARGE PATIENT 1 03/26/2020 Legal Count Last Ordered Date First Orde red Date MISCELLANEOUS DISCHARGE INSTRUCTIONS 3 02/26 documented in this encounter Care Teams President [employer] Relationship Specialty Start Date End Date Kylie Oglesby [address] [facility] [place] [address] PCP - General Internal Medicine - Primary Care 12/15/19 documented as of this encounter
--- OUTSIDE RECORDS SUMMARY | 2024-05-18 13:18 | XMS_ITS | Encounter Summary ---
Author Organization [facility] Address [address] [place] [address] Care Team Providers Care Tip Inserter Name Role Phone Kylie Oglesby Primary Care Provider [phone] Reason for Referral * (Routine/Next Available) - Receiving Office to Obtain Authorization Specialty Diagnoses / Procedures Referred By Contac t Referred To Contact Procedures CT OUTSIDE IMAGES HEAD Imaging, External Referral ID Status Reason Start Date Expiration Date Visits Requested Visits Authorized [id number] Receiving Office to Obtain Authorization 01/11/2024 1 1 Reason for Visit * (Routine/Next Available) - Receiving Office to Obtain Authorization Specialty Diagnoses / Procedures Referred By Contac t Referred To Contact Procedures CT OUTSIDE IMAGES HEAD Imaging, External Referral ID Status Reason Start Date Expiration Date Visits Requested Visits Authorized [id number] Receiving Office to Obtain Authorization 01/11/2024 1 1 Encounter Details Date Type Department Care Team (Latest Contact Info) Description 01/11/2024 11:49 EDT - 01/11/2024 23:59 EDT Hospital Encounter [facility] Secondary Read[place] Discharge Disposition: Home or Self Care Social History Tobacco Use Types Packs/Day Years Used Date Smoking Tobacco: Former Cigarettes 1 - 1994 Smokeless Tobacco: Never Alcohol Use [...] No 06/28/2020 documented as of this encounter Medications at Time of Discharge Medication Sig Dispensed Refills Start Date End Date acetaminophen (TYLENOL) 325 mg tablet Take 1-2 Tabs by mouth every 4 hours as needed for Pain. 03/25/2020 tamsulosin (FLOMAX) 0.4 mg capsule Take by mouth daily. 11/17/2019 documented as of this encounter Discharge Disposition Disposition Code Departure Means Destination Home or Self Care documented in this encounter Plan of Treatment Not on file documented as of this encounter Procedures Procedure Name Priority Date/Time Associated Diagnosis Comments CT OUTSIDE IMAGES HEAD Routine 01/11/2024 11:50 EDT documented in this encounter Results * CT OUTSIDE IMAGES HEAD (01/11/2024 11:50 EDT) Narrative 01/11/2024 11:50 EDT This is a non-reportable exam. External Imaging IMG OTHER IMAGING OR DERABLES documented in this encounter Visit Diagnoses Not on filedocumented in this encounter Care Teams Tip Inserter Relationship Specialty Start Date End Date Kylie Oglesby [address] [place] [address] [place] [address] PCP - General Internal Medicine - Primary Care 12/15/19 documented as of this encounter
--- OUTSIDE RECORDS SUMMARY | 2024-05-18 13:19 | XMS_ITS | Encounter Summary ---
Author Organization [facility] Address [address] [place] [address] Care Team Providers Care Learning Coach Name Role Phone Unknown, Provider Primary Care Provider Reason for Visit * (Routine) - Receiving Office to Obtain Authorization Specialty Diagnoses / Procedures Referred By Kavitha burgos Referred To Contact Procedures CT OUTSIDE IMAGES BODY Unknown, Provider, Referral ID Status Reason Start Date Expiration Date Visits Requested Visits Authorized [id number] Receiving Office to Obtain Authorization 12/31/2019 1 1 Encounter Details Date Type Department Care Team (Latest Contact Info) Description 12/14/2019 - 12/14/2019 23:59 EST Hospital Encounter [facility] - [facility] [address] [place] [address] Discharge Disposition: Home or Self Care Social History Tobacco Use Types Packs/Day Years Used Date Smoking Tobacco: Never Smokeless Tobacco: Never Sex and Gender Information Value Date Recorded Sex Assigned at Not on file Gender Identity Male 11/28/2019 13:59 EST Sexual Orientation Not on file documented as of this encounter Medications at Time of Discharge Medication Sig Dispensed Refills Start Date End Date tamsulosin (FLOMAX) 0.4 mg capsule Take by mouth daily. 11/17/2019 cephALEXin (KEFLEX) 500 mg capsule TK 1 C PO TID 11/20/2019 03/03/2020 nitrofurantoin (MACRODANTIN) 50 mg capsule Take 1 Cap by mouth at bedtime. Start the day after completing your full course of treatment 30 Cap 1 12/01/2019 03/03/2020 nitrofurantoin, macrocrystal-monohydrat e, (MACROBID) 100 mg capsule Take 1 Cap by mouth 2 times daily. 14 Cap 12/01/2019 03/03/2020 documented as of this encounter Discharge Disposition Disposition Code Departure Means Destination Home or Self Care documented in this encounter Plan of Treatment Not on file documented as of this encounter Procedures Procedure Name Priority Date/Time Associated Diagnosis Comments CT OUTSIDE IMAGES BODY Routine 12/31/2019 14:40 EST documented in this encounter Results * CT OUTSIDE IMAGES BODY (12/31/2019 14:40 EST) Narrative SAMEER - 12/31/2019 14:40 EST This is a non-reportable exam. Physician Fa_General IMG OTHER IMAGIN G ORDERABLES Performing Organization Address City/State/[facility] Co de Phone Number BRAYAN documented in this encounter Visit Diagnoses Not on filedocumented in this encounter Care Teams Learning Coach Relationship Specialty Start Date End Date Unknown, Provider, PCP - General 10/15/16 12/14/19 documented as of this encounter
--- OUTSIDE RECORDS SUMMARY | 2024-05-18 13:19 | XMS_ITS | Encounter Summary ---
Author Organization [facility] Address [address] [place] [address] Care Team Providers Care Job Trainer Name Role Phone Kylie Oglesby Primary Care Provider [phone] Reason for Visit * Reason Onset Date Comments COVID-19 03/14/2020 PATIENT IS MAEGAN Ramon PREPROCEDURAL TEST DONE AT [facility] 03/14/20 PATIENT WAS GIVEN [phone] REG LINE FOR GABRIELLA AND IS CALLING TO GET REGISTERED FOR TESTING TODAY Encounter Details Date Type Department Care Team (Late st Contact Info) Description 03/14/2020 Telephone [facility] Mobile Testing [address], [place] [id number] Sara Mendez MD [address] [facility], [facility] [address] [place] [address] COVID-19 (PATIENT IS HAVING PREPROCEDURAL TEST DONE AT [facility] 03/14/20 PATIENT WAS GIVEN [phone] REG LINE FOR GABRIELLA AND IS CALLING TO GET REGISTERED FOR TESTING TODAY ) Social History Tobacco Use Types Packs/Day Years [...] have Coronavirus / COVID-19? No / Unsure 03/01/2020 15:48 EDT documented as of this encounter Miscellaneous Notes * Telephone Encounter - Aguila Suazo - 03/14/2020 0914 EDT PATIENT IS HAVING PREPROCEDURAL TEST DONE AT [facility] 03/14/20 PATIENT WAS GIVEN [phone] REG LINE FOR [facility] AND IS CALLING TO GET REGISTERED FOR TESTING TODAY documented in this encounter Plan of Treatment Not on file documented as of this encounter Visit Diagnoses Not on filedocumented in this encounter Care Teams Job Trainer Relationship Specialty Start Date End Date Kylie Oglesby [address] [place] [address] PCP - General Internal Medicine - Primary Care 12/15/19 documented as of this encounter
--- OUTSIDE RECORDS SUMMARY | 2024-05-18 13:19 | XMS_ITS | Encounter Summary ---
Author Organization [facility] Address [address] [place] [address] Care Team Providers Care Care Analyst Name Role Phone Unknown, Provider Primary Care Provider [phone] Reason for Visit * Reason Onset Date Comments Labs Only 12/03/2019 Encounter Details Date Type Department Care Team (Late st Contact Info) Description 12/03/2019 Telephone [facility] [address] [place] [address] Bahman Anderson, RN Labs Only Social History Tobacco Use Types Packs/Day Years Used Date Smoking Tobacco: Never Smokeless Tobacco: Never Sex and Gender Information Value Date Recorded Sex Assigned at Not on file Gender Identity Male 11/28/2019 13:59 EST Sexual Orientation Not on file documented as of this encounter Miscellaneous Notes * Telephone Encounter - Bahman Anderson RN - 12/03/2019 1634 EST Pt stated understanding of instructions to continue antibiotic until complete and call office with questions/concerns. documented in this encounter Plan of Treatment Not on file documented as of this encounter Visit Diagnoses Not on filedocumented in this encounter Care Teams Care Analyst Relationship Specialty Start Date End Date Unknown, Provider, PCP - General 10/15/16 12/14/19 documented as of this encounter
--- OUTSIDE RECORDS SUMMARY | 2024-05-18 13:19 | XMS_ITS | Encounter Summary ---
Author Organization [facility] Address [address] [place] [address] Care Team Providers Care Piping Drafter Name Role Phone Kylie Oglesby Primary Care Provider [phone] Encounter Details Date Type Department Care Team (Late st Contact Info) Description 03/14/2020 Lab Requisition [facility] - [facility] [address] [place] [address] Outr Resulting Lab, Provider Social History Tobacco Use Types Packs/Day Years Used Date Smoking Tobacco: Former Cigarettes 2 1 965 - 1994 Smokeless Tobacco: Never [...] 6:49 EDT documented as of this encounter Plan of Treatment Not on file documented as of this encounter Procedures Procedure Name Priority Date/Time Associated Diagnosis Comments DO NOT ORDER STANDALONE - BROAD COVID TEST Today 03/14/2020 13:53 EDT COVID-19 TESTING Routine 03/14/2020 13:5 3 EDT documented in this encounter Results * DO NOT ORDER STANDALONE - BROAD COVID TEST (03/14/2020 13:53 EDT) Pathologist [facility] COVID-19 rt-PCR Result NEGATIVE Negative 03/15/2020 14:20 EDT [facility] Comment: 2019-novel Coronavirus (2019-nCoV) not detected by the qRT-PCR assay. Consider testing for other respiratory viruses or re-collecting for 2019-nCoV testing. Note: Optimum timing for peak viral levels during infections caused by 2019-nCoV have not been determined. Collection of multiple specimens from the same patient may be necessary to detect the virus. Limitations Positive results are indicative of active infection with SARS-CoV-2 but do not rule out bacterial infection or co-infection with other viruses. The agent detected may not be the definite cause of disease. In addition, detection of viral RNA may not indicate the presence of infectious virus or that SARS-CoV-2 is the causative agent for clinical symptoms. Negative results do not preclude SARS-CoV-2 infection and should not be used as the sole basis for patient management decisions. Negative results must be combined with clinical observations, patient history, and epidemiological information. False negative results may also occur if amplification inhibitors are present in the specimen or if inadequate numbers of organisms are present in the specimen. Optimum specimen types and timing for peak viral levels during infections caused by SARS-CoV-2 have not been fully determined. Collection of multiple specimens (types and time points) from the same patient may be necessary to detect the virus. The test was validated for use with upper respiratory specimens obtained via nasopharyngeal or oropharyngeal swabs in VTM, UTM, M4, M5, M6, saline, and MTM media. The performance of this test has not been established for other specimens. Specimens collected using other FDA recommended Specimen Collection Materials listed in the FDA COVID-19 [employer] communication (January 21, 2020) are processed with the caveat that they were not all validated for use with this test and the result must be interpreted in this context. Furthermore, a false negative results may occur if a specimen is improperly collected, transported or handled. If the virus mutates in the RT-PCR target region, SARS-CoV-2 may not be detected or may be detected less predictably. Inhibitors or other types of interference may produce a false negative result. An interference study evaluating the effect of common cold medications was not performed. This test is not FDA-cleared but its performance characteristics were established by our CLIA-certified, CAP-accredited, high complexity laboratory in accordance with CLIA regulations, [employer] of [place] (CAP) guidelines (Jan 14, 2020), and FDA guidance (Dec 26, 2019). This test is only for use under the Food and Drug Administration's Emergency Use Authorization. Swab ENTIRE NASOPHARYNX / Unknown 03/14/2020 13:53 EDT 03/14/2020 21:37 EDT Provider Outr Resulting Lab MICROBIOLOGY - GENERAL ORDERABLES [facility] [place], [place] * COVID-19 TESTING (03/14/2020 13:53 EDT) COVID-19 rt-PCR Result NEGATIVE Negative 03/15/2020 17:54 EDT [facility] Comment: 2019-novel Coronavirus (2019-nCoV) not detected by the qRT-PCR assay. Consider testing for other respiratory viruses or re-collecting for 2019-nCoV testing. Note: Optimum timing for peak viral levels during infections caused by 2019-nCoV have not been determined. Collection of multiple specimens from the same patient may be necessary to detect the virus. Limitations Positive results are indicative of active infection with SARS-CoV-2 but do not rule out bacterial infection or co-infection with other viruses. The agent detected may not be the definite cause of disease. In addition, detection of viral RNA may not indicate the presence of infectious virus or that SARS-CoV-2 is the causative agent for clinical symptoms. Negative results do not preclude SARS-CoV-2 infection and should not be used as the sole basis for patient management decisions. Negative results must be combined with clinical observations, patient history, and epidemiological information. False negative results may also occur if amplification inhibitors are present in the specimen or if inadequate numbers of organisms are present in the specimen. Optimum specimen types and timing for peak viral levels during infections caused by SARS-CoV-2 have not been fully determined. Collection of multiple specimens (types and time points) from the same patient may be necessary to detect the virus. The test was validated for use with upper respiratory specimens obtained via nasopharyngeal or oropharyngeal swabs in VTM, UTM, M4, M5, M6, saline, and MTM media. The performance of this test has not been established for other specimens. Specimens collected using other FDA recommended Specimen Collection Materials listed in the FDA COVID-19 [employer] communication (January 21, 2020) are processed with the caveat that they were not all validated for use with this test and the result must be interpreted in this context. Furthermore, a false negative results may occur if a specimen is improperly collected, transported or handled. If the virus mutates in the RT-PCR target region, SARS-CoV-2 may not be detected or may be detected less predictably. Inhibitors or other types of interference may produce a false negative result. An interference study evaluating the effect of common cold medications was not performed. This test is not FDA-cleared but its performance characteristics were established by our CLIA-certified, CAP-accredited, high complexity laboratory in accordance with CLIA regulations, [employer] of [place] [employer] (CAP) guidelines (Jan 14, 2020), and FDA guidance (Dec 26, 2019). This test is only for use under the Food and Drug Administration's Emergency Use Authorization. Performing Lab [facility] 03/15/2020 17:54 EDT [facility] Swab ENTIRE NASOPHARYNX / Unknown 03/14/2020 13:53 EDT 03/14/2020 21:37 EDT Provider Outr Resulting Lab MICROBIOLOGY - GENERAL ORDERABLES [facility] [address] [place] [address] [facility] [place], [place] documented in this encounter Visit Diagnoses Not on filedocumented in this encounter Care Teams Piping Drafter Relationship Specialty Start Date End Date Kylie Oglesby [address] [place] [address] PCP - General Internal Medicine - Primary Care 12/15/19 documented as of this encounter
--- OUTSIDE RECORDS SUMMARY | 2024-05-18 13:19 | XMS_ITS | Encounter Summary ---
Author Organization [facility] Address [address] [place] [address] Care Team Providers Care City Plant Supervisor Name Role Phone Kylie Oglesby Primary Care Provider [phone] Reason for Visit * Reason Comments New Patient Visit colovesicu. fistula * Consult (Routine) - Specialty Report Received Specialty Diagnoses / Procedures Referred By Kavitha burgos Referred To Contact General Surgery Diagnoses Pneumaturia Recurrent UTI Catrhyn Monzon, METAL MINER BLAST[employer] [address] [place] [phone] Sara Mendez MD [address] [place] [phone] Referral ID Status Reason Start Date Expiration Date Visits Requested Visits Authorized [id number] Specialty Report Received Specialty Services Required 12/01/2019 1 1 Encounter Details Date Type Department Care Team (Late st Contact Info) Description 01/05/2020 10:00 EDT Office Visit [facility] General Surgery - [address] [address] Sara Mendez MD [address] [place] [phone] Pneumaturia (Primary Dx) Social History Tobacco Use Types Packs/Day Years Used Date Smoking Tobacco: Former Cigarettes 2 30 1 965 - 1994 Smokeless Tobacco: Never Sex and Gender Information Value Date Recorded Sex Assigned at Not on file Gender Identity Male 11/28/2019 13:59 EST Sexual Orientation Not on file documented as of this encounter Last Filed Vital Signs Vital Sign Reading Time Taken Comments Blood Pressure 126/64 01/05/2020 1008 EDT Pulse 60 01/05/2020 1008 EDT Temperature - - Respiratory Rate 18 01/05/2020 1008 EDT Oxygen Saturation - - Inhaled Oxygen Concentration - - Weight 102.1 kg (225 lb) 01/05/2020 1008 EDT per pt Height 193 cm (6' 4) 01/05/2020 1008 EDT Body Mass Index 27.39 01/05/2020 1008 EDT documented in this encounter Progress Notes * Sara Mendez MD - 01/05/2020 1000 EDT Colorectal Surgery Chief Complaint: colovesicular fistula HPI: Patient is a 79 y.o. 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 Patient has a h/o of frequent UTIs, [...] solids, but does occasionally see some mucus. He has bowel movements about once daily. He denies constipation. He denies fecal incontinence but does occasionally have some urgency. He has no blood in his bowel movement or change in caliber. He has no significant change in his bowel movements. In regards to symptoms of diverticulitis, patient does not endorse any history of left lower quadrant or suprapubic pain associated with fevers chills or change in bowel movements. He has been seen by the urology department at [facility] with Cathryn Monzon. She did a CT scan of the abdomen and pelvis with per rectum contrast that demonstrated some sigmoid colon inflammation, gas in the bladder, and some thickening of the bladder. CT scan also demonstrated some subcentimeter pulmo nary nodules and with his history of smoking, it is recommended he undergo repeat CT scan in the next [address] 04/2019 for flank pain reviewed by myself--does demonstrate a thickened bladder with gas in the bladder, no inflammation of the sigmoid colon. SHx: former smoker, quit 25 years ago but has about a 38-bdlj-gxri history. drinks wine daily. 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 He goes to the gym 3 times a week and either sits on the bike or the elliptical machine. He denies any chest pain with exertion, but does have some shortness of breath ifhe walks out 2 flights of stairs Colonoscopy was about 2 to 3 years ago at [facility]. He states it was normal. He did have 1-2 polyps that he was age 61 at his first colonoscopy. Surgical hx: appendectomy at age 6, tonsillectomy No unintentional weight loss Family history: Maternal grandfather of consumption, maternal aunt with severe arthritis. No history of cancer, no history of polyps or IBD. Patient does not know his father's side well and he was raised by his grandmother. Review of Symptoms: Gen: no fevers, chills, sweats, no recent [...] difficulty no cane / walker/ or wheelchair PMH PSH No past medical history on file. Past Surgical History: Procedure Laterality Date ??? APPENDECTOMY ??? TONSILLECTOMY Social History Family history Social History Tobacco Use ??? Smoking status: Former Smoker Packs/day: 2.00 Years: 30.00 Pack years: 60.00 Types: Cigarettes Last attempt to quit: 1994 Years since quittin.2 ??? Smokeless tobacco: Never Used Substance Use Topics ??? Alcohol use: Not on file No family history on file. Current Outpatient Medications: cephALEXin (KEFLEX) 500 mg capsule nitrofurantoin (MACRODANTIN) 50 mg capsule nitrofurantoin, macrocrystal-monohydrate, (MACROBID) 100 mg capsule tamsulosin (FLOMAX) 0.4 mg capsule No current facility-administered medications for this visit. Allergies Allergies Allergen Reactions ??? Steroid [Corticosteroids (Glucocorticoids)] Other (See Comments) edison Bush Objective: Blood pressure 126/64, pulse 60, resp. [...] McBurney's incision Ext: warm, well perfused,no edema Rectal exam deferred given plans for colonoscopy Data Review: Labs: CBC: No results found for: WBC, RBC, HGB, HCT, PLTCMP: Lab Results Component Value Date NA 139 12/14/2019 K 4.5 12/14/2019 CL 104 12/14/2019 CO2 26 12/14/2019 BUN 16 12/14/2019 CREATININE 0.83 12/14/2019 Cardiac: No results found for: CK, CKMBINDEX, TROPONINICoagulation: No results found for: PROTIME, INR, PTTABG: Assessment: Jasbir Kate is a(n) 79 y.o. 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 Plan: -Patient will try the poppyseed test to see if he has poppy seeds come from his urine stream. -We will plan a colonoscopy to rule out a malignancy. I explained that this is unlikely to show us the fistula. - Following colonoscopy, will plan to further discuss a possible surgical plan. I also explained to the patient that he has some subcentimeter pulmonary nodules on the CT scan. Itis recommended per the radiology guidelines to follow-up in 3 to [address] scan. I will asked that his primary care physician, Dr. Oglesby help us follow this. Sara Mendez MD 01/05/2020 10:52 documented in this encounter Plan of Treatment Not on file documented as of this encounter Visit Diagnoses Diagnosis Pneumaturia- Primary Other specified disorders of urethra documented in this encounter Care Teams City Plant Supervisor Relationship Specialty Start Date End Date Kylie Oglesby [address] [place] [address] PCP - General Internal Medicine - Primary Care 12/15/19 documented as of this encounter
--- OUTSIDE RECORDS SUMMARY | 2024-05-18 13:19 | XMS_ITS | Encounter Summary ---
Author Organization [facility] Address [address] [place] [address] Care Team Providers Care [employer] Solutions Consultant Name Role Phone Kylie Oglesby Primary Care Provider [phone] Encounter Details Date Type Department Care Team (Latest Contact Info) Description 03/01/2020 Travel Social History Tobacco Use Types Packs/Day [...] 15:48 EDT documented as of this encounter Plan of Treatment Not on file documented as of this encounter Visit Diagnoses Not on filedocumented in this encounter Care Teams Apple Solutions Consultant Relationship Specialty Start Date End Date Kylie Oglesby [address] [place] [address] PCP - General Internal Medicine - Primary Care 12/15/19 documented as of this encounter
--- OUTSIDE RECORDS SUMMARY | 2024-05-18 13:19 | XMS_ITS | Encounter Summary ---
Author Organization [facility] Address [address] [place] [address] Care Team Providers Care Coal Trammer Name Role Phone Kylie Oglesby Primary Care Provider [phone] Encounter Details Date Type Department Care Team (Latest Contact Info) Description 02/18/2020 Travel Social History Tobacco Use Types Packs/Day [...] have Coronavirus / COVID-19? No / Unsure 02/18/2020 9:44 EDT documented as of this encounter Plan of Treatment Not on file documented as of this encounter Visit Diagnoses Not on filedocumented in this encounter Care Teams Coal Trammer Relationship Specialty Start Date End Date Kylie Oglesby [address] [place] [address] PCP - General Internal Medicine - Primary Care 12/15/19 documented as of this encounter
--- OUTSIDE RECORDS SUMMARY | 2024-05-18 13:19 | XMS_ITS | Encounter Summary ---
Author Organization [facility] Address [address] [place] [address] Care Team Providers Care Abattoir Supervisor Name Role Phone Kylie Oglesby Primary Care Provider [phone] Reason for Visit * Auth/Cert Specialty Diagnoses / Procedures Referred By Kavitha burgos Referred To Contact Diagnoses Colovesical fistula Procedures CO LAP,SURG,COLECTOMY, PARTIAL, W/ANAST Diagnostic laparoscopy with possible sigmoid colectomy Referral ID Status Reason Start Date Expiration Date Visits Re quested Visits Authorized [id number] 1 Encounter Details Date Type Department Care Team (Late st Contact Info) Description 03/17/2020 8:36 EDT Anesthesia Event [facility] OR [address] [place], [place] [id number] James Vanessa MD [address] [facility], [address] [place] [address] Anesthesia Record Procedure Summary Procedure Name Responsible Anesthesiologist Anesthesia Start Time Anesthesia Stop Time Diagnostic laparoscopy with possible sigmoid colectomy (Abdomen) James Vanessa MD 03/17/20 0836 03/17/20 1200 Events Date Time Event Comment 03/17/2020 0836 An Start The patient was re-evaluated immediately before moderate or deep sedation use, before anesthesia induction, or before the anesthesia procedure. 0843 An Start Data 0901 An Induction The patient was reevaluated immediately before moderate or deep sedation use and before anesthesia induction. 0903 An Intubation 0950 Dre Heparin 5000U S Q L upper arm given PSR after - aspiration 1021 Dre 7.5 mg indocyan ine green given IVP PSR 1145 An Extubation 1153 An Extubation 1200 Handoff to RN I completed my handoff to the receiving nurse during which we: 1. Identified the patient 2. Identified the responsible provider 3. Reviewed the pertinent medical history 4. Discussed the surgical course 5. Reviewed intra-op anesthesia management and issues during anesthesia 6. Set expectations for post-procedure period 7. Allowed opportunity for questions and acknowledgement of understanding. 1200 An Stop 1601 an stop data 1602 Handoff to RN I completed my handoff to the receiving nurse during which we: 1. Identified the patient 2. Identified the responsible provider 3. Reviewed the pertinent medical history 4. Discussed the surgical course 5. Reviewed intra-op anesthesia management and issues during anesthesia 6. Set expectations for post-procedure period 7. Allowed opportunity for questions and acknowledgement of understanding. Meds Name Total fentanyl citrate (PF) injection 150 mcg lidocaine injection 2 % 60 mg propOFol (DIPRIVAN) injection 160 mg rocuronium (ZEMURON) injection 10 mg/mL 100 mg succinylcholine (ANECTINE) injection 20 mg/mL 120 mg sugammadex (BRIDION) injection 100 mg/mL 200 mg morphine (PF) (DURAMORPH) injection 1mg/ mL (Epidural/IT) 0.15 mg ceFAZolin (ANCEF) syringe 2 g 2 g lidocaine 2000 mg/500 mL infusion 232 mg heparin injection 1,000 units/mL 5,000 U nits labetalol 5 mg/ml 10 ml syringe 10 mg lactated ringers (LR) infusion 700 mL * Agents Name Insp Isoflurane Exp Isoflurane O2 N2O Air Cumulated Iso Consumption * Blood No blood administrations on file. Lines, Drains, and Airways Type Details Placement Removal Wound 03/17/20; Incision; Midline, Anterior; Abdomen; laparscopic colectomy; N; Full thickness 03/17/20 0000 by Valeria Gaspar RN Peripheral IV 03/17/20; 0806; B Br aun Introcan; Left, Dorsal; Forearm; Inserted by RN; 1; None; 3.15% Chlorhexidine with IPA 03/17/20 0806 by Letitia Soria RN Closed/Suction Drain 03/17/20; In OR by MD; 1; Superior, Midline; Abdomen; 19 Egyptian (lalit); 03/23/20; 1751 03/17/20 0000 by Valeria Gaspar RN 03/23/20 1751 by Norah Pedro RN Urethral Catheter 03/17/20; 0910; Kimberlye rted by RN; Intraoperative monitoring; Non-latex, Straight-tip; 16 fr; 10 ml; Yes; 03/22/20; 1330 03/17/20 0910 by Valeria Gaspar RN 03/22/20 1330 by Colin Dias RN Non-Surgical Airway 03/17/20; 0938 (adela kelly via procedure documentation); 03/17/20; 1145 03/17/20 0938 by Vita Middleton AA 03/17/20 1145 by Vita Middleton AA documented in this encounter Social History Tobacco Use Types Packs/Day Years [...] 6:49 EDT documented as of this encounter OR Notes * Anesthesia Postprocedure Evaluation - Vita Middleton AA - 03/17/2020 1606 EDT Patient: Tony Kate Vital signs were reviewed with the recovery nurse. Complete vitals history is available in the Epicflowsheets. Vitals Value Taken Time BP 124/76 03/17/2020 13:30 Temp 37.4 ??C (99.3 ??F) 03/17/2020 12:45 Resp 16 03/17/2020 13:32 Pulse From Oximetry 64 BPM 03/17/2020 13:32 SpO2 100 % 03/17/2020 13:32 Vitals shown include unvalidated device data. Last Pain Score - Numeric Pain Level (Scale 1-10): 5 Type of Anesthesia - general Anesthesia Post Evaluation Post-procedure vitals reviewed and are stable. Level of consciousness: alert and oriented and awake Temperature status: normothermia Respiratory status: airway patent and nasal cannula Cardiovascular status: acceptable and appropriate for condition Hydration status: adequate Nausea/Vomiting: none Pain management: adequate and Acute Pain Service to follow Post-Op Assessment: patient tolerated procedure well with no complications and patient satisfied with anesthesia care Patient participation: able to participate Disposition: inpatient Anesthesia Complications: No apparent anesthesia complications * Anesthesia Preprocedure Evaluation - Vita Middleton AA - 03/17/2020 1048 EDT Images from the original note were not included. Anesthesia Preprocedure Evaluation Patient Medical History, including Anesthesia History reviewed. Chart and Nursing Notes reviewed, including NPO status and Medication History. Additional ROS/History Findings: Allergies Allergen Reactions ??? Steroid [Corticosteroids (Glucocorticoids)] Other (See Comments) Paranduncanaedison Review of Systems Genitourinary: Positive for dysuria, frequency and urgency. Past Medical History: Diagnosis Date ??? Activity, [...] diverticulitis ??? Frequent UTI started having issues [id number], never been hospitalized for uti ??? History of general anesthesia ??? Peripheral neuropathy 03/03/2020 ongoing issue Relevant Problems No relevant active problems Physical Exam Airway Mallampati: II TM distance: >3 FB Neck ROM: full Cardiovascular Rhythm: regular Rate: normal Dental Pulmonary Breath sounds clear to auscultation Abdominal Anesthesia Plan ASA 2 Anesthesia Type - general (intrathecal morphine) Anesthesia plan and risks discussed. Informed consent obtained from patient. Use of blood products discussed with patient whom. Code status discussed? Yes The preoperative history and physical which was performed within 30 days of this procedure, has been reviewed and the clinically appropriate elements of the physical examination have been repeated. There are no changes to the documented history and physical or, if so, such changes are documented inthis note PAT Note (Notes from 02/16/20 through 03/17/20) PAT Note by Chante Garcia, RN at 03/03/2020 12:08 Version 1 of 1 COVID 19 Screening Perioperative at time of PAT Have you had any flu like symptoms within past six weeks? - Cough NO - Runny nose NO - SOB NO - Fever/Chills NO - Muscle pain NO - Chest congestion NO - Cold NO - Loss of taste/ smell NO - Diarrhea NO Please elaborate if yes: If past COVID + test results in chart: ??? Complete call, Place for Anesthesia Review ??? Do not give COVID+ DOS arrival instructions unless anes review deems necessary Have you been in close contact with someone who has been diagnosed with Covid 19? NO (close contact, within 6 feet of any person known to have Coronavirus in the past 14 days) If patient develops any of these symptoms between now and their surgery date instruct them to call us back at [phone] to report symptoms If the patient answers yes, to any of these questions during PAT, -RN to flag this chart for anesthesia review and complete call -RN to communicate with surgical office about anesthesia review (If patient is in Surgical Admissions and answers yes, please notify Surgery and Anesthesia team). Follow proper precautions- yellow mask to patient/family. [place]: Visitor Policy: OP- one non-sick escort in waiting room, no visitors/escort in PeriOp Exceptions: Child-1 parent, special needs- 1 caregiver IP- One non-sick visitor/escort in waiting room, no visitors/escort in PeriOp Pediatric patient: ??? Due to COVID 19 all children will receive IV and no parents are allows to go back to OR ??? RN to provide education on IV's and request Emla to be placed (RX from PCP) prior to coming in with them. ? ? Patient > 1 yo: Emla takes one hour to work, place quarter size amount on 4 places - top of hands and inner elbow, cover with tegaderm or saran wrap. Children under age of 16 y.o. are not permitted. Only ADA service animals are permitted into the hospital. All other animals, including previously approved therapy/support animals, are not allowed at this time. (No animals will be allowed into Preop, OR, or PA[TB.1] CHANTE GARCIA RN[TB.2] Attribution Castro TB.1 - Chante Garcia RN on 03/03/2020 12:08 TB.2 - Chante Garcia RN on 03/03/2020 12:09 * Anesthesia Procedure Notes - Vita Middleton AA - 03/17/2020 0937 EDT Associated Order(s): Airway Airway Date/Time: 03/17/2020 9:03 Urgency: elective Airway not difficult General Information and Staff Patient location during procedure: OR Performed: resident/ABRASIVE GRADER/AA Indications and Patient Condition Indications for airway management: anesthesia and airway protection Sedation level: GA Preoxygenated: yes Patient position: sniffing Ventilation assessment: 0 - not attempted Final Airway Details Final airway type: endotracheal airway Successful airway: ETT Cuffed: yes Successful intubation technique: video laryngoscopy Storla Blade: Ines Blade size: #3 ETT size (mm): 8.0 Cormack-Lehane Classification: grade I - full view of glottis Placement verified by: chest auscultation and capnometry Number of attempts at approach: 1 * Anesthesia Procedure Notes - Viat Middleton AA - 03/17/2020 0854 EDT Associated Order(s): Spinal Block Spinal Block Patient location during procedure: OR Start time: 03/17/2020 8:48 End time: 03/17/2020 8:54 Staffing Anesthesiologist: Carlos Fraser MD Performed: anesthesiologist Preanesthetic Checklist Completed: patient identified, surgical consent, pre-op evaluation, timeout performed, IV checked, risks and benefits discussed and monitors and equipment checked Spinal Block Patient position: sitting Prep: ChloraPrep, site prepped and draped, skin prep agent completely dried prior to procedure, sterile gloves, mask used and subcutaneous lidocaine Patient monitoring: heart rate, continuous pulse ox and BP cuff Approach: midline Location: L4-5 Injection technique: single-shot Needle Needle type: Alisha Needle gauge: 25 G Needle length: 3.5 in Catheter type: closed end Assessment Events: no paresthesia Additional Notes Intrathecal morphine for post-op pain Reason for block: at surgeon's request, for post-op pain management * Anesthesia Preprocedure Evaluation - James Vanessa MD - 03/17/2020 0828 EDT Anesthesia Preprocedure Evaluation Patient Medical History, including Anesthesia History reviewed. Chart and Nursing Notes reviewed, including NPO status and Medication History. Additional ROS/History Findings: Allergies Allergen Reactions ??? Steroid [Corticosteroids (Glucocorticoids)] Other (See Comments) Paranoia, crazy Review of Systems All other systems reviewed and are negative. Past Medical History: Diagnosis Date ??? Activity, [...] diverticulitis ??? Frequent UTI started having issues [id number], never been hospitalized for uti ??? History of general anesthesia ??? Peripheral neuropathy 03/03/2020 ongoing issue Relevant Problems No relevant active problems Physical Exam Airway Mallampati: II TM distance: <3 FB Neck ROM: full Cardiovascular Rate: normal Dental Comments: No top teeth Pulmonary Abdominal Anesthesia Plan ASA 2 Anesthesia Type - general PAT Note (Notes from 02/16/20 through 03/17/20) PAT Note by Chante Garcia, RN at 03/03/2020 12:08 Version 1 of 1 COVID 19 Screening Perioperative at time of PAT Have you had any flu like symptoms within past six weeks? - Cough NO - Runny nose NO - SOB NO - Fever/Chills NO - Muscle pain NO - Chest congestion NO - Cold NO - Loss of taste/ smell NO - Diarrhea NO Please elaborate if yes: If past COVID + test results in chart: ??? Complete call, Place for Anesthesia Review ??? Do not give COVID+ DOS arrival instructions unless anes review deems necessary Have you been in close contact with someone who has been diagnosed with Covid 19? NO (close contact, within 6 feet of any person known to have Coronavirus in the past 14 days) If patient develops any of these symptoms between now and their surgery date instruct them to call us back at [phone] to report symptoms If the patient answers yes, to any of these questions during PAT, -RN to flag this chart for anesthesia review and complete call -RN to communicate with surgical office about anesthesia review (If patient is in Surgical Admissions and answers yes, please notify Surgery and Anesthesia team). Follow proper precautions- yellow mask to patient/family. [place]: Visitor Policy: OP- one non-sick escort in waiting room, no visitors/escort in PeriOp Exceptions: Child-1 parent, special needs- 1 caregiver IP- One non-sick visitor/escort in waiting room, no visitors/escort in PeriOp Pediatric patient: ??? Due to COVID 19 all children will receive IV and no parents are allows to go back to OR ??? RN to provide education on IV's and request Emla to be placed (RX from PCP) prior to coming in with them. ? ? Patient > 1 yo: Emla takes one hour to work, place quarter size amount on 4 places - top of hands and inner elbow, cover with tegaderm or saran wrap. Children under age of 16 y.o. are not permitted. Only ADA service animals are permitted into the hospital. All other animals, including previously approved therapy/support animals, are not allowed at this time. (No animals will be allowed into Preop, OR, or PA[TB.1] CHANTE GARCIA RN[TB.2] Attribution Castro TB.1 - Chante Garcia RN on 03/03/2020 12:08 TB.2 - Chante Garcia RN on 03/03/2020 12:09 documented in this encounter Plan of Treatment Not on file documented as of this encounter Procedures Procedure Name Priority Date/Time Associated Diagnosis Comments ANESTHESIA INTUBATION Routine 03/17/2020 9:37 EDT ANESTHESIA SPINAL BLOCK Routine 03/17/2020 8:54 EDT documented in this encounter Results * CO AN ELECTIVE ENDOTRACHEAL AIRWAY (03/17/2020 9:37 EDT) Narrative Vita Middleton AA - 03/17/2020 9:37 EDT Vita Middleton AA ? 03/17/2020 ??9:38 Airway Date/Time: 03/17/2020 9:03 Urgency: elective Airway not difficult General Information and Staff Patient location during procedure: OR Performed: resident/ABRASIVE GRADER/AA Indications and Patient Condition Indications for airway management: anesthesia and airway protection Sedation level: GA Preoxygenated: yes Patient position: sniffing Ventilation assessment: 0 - not attempted Final Airway Details Final airway type: endotracheal airway Successful airway: ETT Cuffed: yes Successful intubation technique: video laryngoscopy Perez Blade: Ines Blade size: #3 ETT size (mm): 8.0 Cormack-Lehane Classification: grade I - full view of glottis Placement verified by: chest auscultation and capnometry Number of attempts at approach: 1 James Vanessa MD ANESTHESIA ORDERABLE S * Spinal Block (03/17/2020 8:54 EDT) Narrative Vita Middleton AA - 03/17/2020 8:54 EDT Vita Middleton AA ? 03/17/2020 ??8:55 Spinal Block Patient location during procedure: OR Start time: 03/17/2020 8:48 End time: 03/17/2020 8:54 Staffing Anesthesiologist: Carlos Fraser MD Performed: anesthesiologist Preanesthetic Checklist Completed: patient identified, surgical consent, pre-op evaluation, timeout performed, IV checked, risks and benefits discussed and monitors and equipment checked Spinal Block Patient position: sitting Prep: ChloraPrep, site prepped and draped, skin prep agent completely dried prior to procedure, sterile gloves, mask used and subcutaneous lidocaine Patient monitoring: heart rate, continuous pulse ox and BP cuff Approach: midline Location: L4-5 Injection technique: single-shot Needle Needle type: Alisha Needle gauge: 25 G Needle length: 3.5 in Catheter type: closed end Assessment Events: no paresthesia Additional Notes Intrathecal morphine for post-op pain Reason for block: at surgeon's request, for post-op pain management Carlos Fraser MD ANESTHESIA ORDERABLE S documented in this encounter Visit Diagnoses Not on filedocumented in this encounter Administered Medications Inactive Administered Medications - up to 3 most recent administrations Medication Order MAR Action Action Date Dose Rate Site ceFAZolin (ANCEF) syringe 2 g 2 g, intravenous, Administer over 10 Minutes, PRE-OP ONCE, 1 dose, On Tuyet 03/17/20 at 0745, Routine, Preprocedure Given 03/17/2020 9:18 EDT 2 g fentaNYL citrate (PF) injection intravenous, PRN, Starting on Tuyet 03/17/20 at 0939, Until Tuyet 03/17/20 at 1605, Routine, Anesthesia Intraprocedure Given 03/17/2020 11:25 EDT 50 mcg Given 03/17/2020 10:12 EDT 50 mcg Given 03/17/2020 9:39 EDT 50 mcg heparin 1,000 unit/mL injection PRN, Starting on Tuyet 03/17/20 at 0949, Until Tuyet 03/17/20 at 1605, Routine, Anesthesia Intraprocedure Given 03/17/2020 9:49 EDT 5,000 Units labetalol (TRANDATE) injection PRN, Starting on Tuyet 03/17/20 at 1037, Until Tuyet 03/17/20 at 1605, Routine, Anesthesia Intraprocedure Given 03/17/2020 10:37 EDT 10 mg lactated ringers (LR) infusion 25 mL/hr, intravenous, CONTINUOUS, Starting on Tuyet 03/17/20 at 0745, Until Tuyet 03/17/20 at 1256, Routine, Preprocedure Continued by Anesthesia 03/17/2020 9:39 EDT New Bag 03/17/2020 8:20 EDT 25 mL/hr 25 mL/hr lidocaine 20 mg/mL (2 %) injection other, PRN, Starting on Tuyet 03/17/20 at 0902, Until Tuyet 03/17/20 at 1605, Routine, Anesthesia Intraprocedure Given 03/17/2020 9:02 EDT 60 mg lidocaine 2000 mg/500 mL infusion FA IP EQF CONTINUOUS PRN FOR ONE STEP MEDS, Starting on Tuyet 03/17/20 at 0920, Until Tuyet 03/17/20 at 1605, Routine, Anesthesia Intraprocedure New Bag 03/17/2020 9:20 EDT 2 mg/min 30 mL/hr morphine (PF) (DURAMORPH) injection PRN, Starting on Tuyet 03/17/20 at 0849, Until Tuyet 03/17/20 at 1605, Routine, Anesthesia Intraprocedure Given 03/17/2020 8:49 EDT 0.15 mg propOFol (DIPRIVAN) injection intravenous, PRN, Starting on Tuyet 03/17/20 at 0903, Until Tuyet 03/17/20 at 1605, Routine, Anesthesia Intraprocedure Given 03/17/2020 9:03 EDT 160 mg rocuronium (ZEMURON) injection intravenous, PRN, Starting on Tuyet 03/17/20 at 0906, Until Tuyet 03/17/20 at 1605, Routine, Anesthesia Intraprocedure Given 03/17/2020 10:33 EDT 30 mg Given 03/17/2020 9:56 EDT 10 mg Given 03/17/2020 9:27 EDT 30 mg succinylcholine (ANECTINE) injection intravenous, PRN, Starting on Tuyet 03/17/20 at 0904, Until Tuyet 03/17/20 at 1605, Routine, Anesthesia Intraprocedure Given 03/17/2020 9:04 EDT 120 mg sugammadex (BRIDION) injection intravenous, PRN, Starting on Tuyet 03/17/20 at 1137, Until Tuyet 03/17/20 at 1605, Routine, Anesthesia Intraprocedure Given 03/17/2020 11:37 EDT 200 mg documented in this encounter Care Teams Abattoir Supervisor Relationship Specialty Start Date End Date Kylie Oglesby [address] [place] [address] PCP - General Internal Medicine - Primary Care 12/15/19 documented as of this encounter
--- OUTSIDE RECORDS SUMMARY | 2024-05-18 13:19 | XMS_ITS | Encounter Summary ---
Author Organization [facility] Address [address] [place] [address] Care Team Providers Care Detailer Furniture Name Role Phone Kylie Oglesby Primary Care Provider Reason for Visit * Auth/Cert Specialty Diagnoses / Procedures Referred By Kavitha burgos Referred To Contact Diagnoses History of colon polyps History of colon polyps [Z86.010] Procedures COLONOSCOPY PROCEDURE-GI Referral ID Status Reason Start Date Expiration Date Visits Re quested Visits Authorized [id number] 1 1 Encounter Details Date Type Department Care Team (Late st Contact Info) Description 02/18/2020 11:10 EDT - 02/18/2020 11:50 EDT Surgery [facility] Endoscopy - [address] [address] Sara Mendez MD [address] [place] [address], [facility] [address] [place] [address] COLONOSCOPY PROCEDURE-GI Surgery Details Date/Time Status Location OR Service Patient Class Case Cl ass Case Type Trauma Case? 02/18/20 1110 Posted [facility] GI/ENDO ENDO [address] [place] [address] Outpatient Procedure H - Elective Panel 1 Procedure LRB Anes Op Region Wound Class Comments COLONOSCOPY PROCEDURE-GI N/A Nurse Moderate Sedation A nus Surgeon Surgeon Role Service Panel Sara Mendez MD Primary General 1 documented in this encounter Social History Tobacco [...] 9:44 EDT documented as of this encounter Last Filed Vital Signs Vital Sign Reading Time Taken Comments Blood Pressure 124/103 02/18/2020 1150 EDT Pulse 88 02/18/2020 1007 EDT Temperature 36.7 ??C (98.1 ??F) 02/18/2020 1007 EDT Respiratory Rate 14 02/18/2020 1150 EDT Oxygen Saturation 96% 02/18/2020 1150 EDT Inhaled Oxygen Concentration - - Weight 99.8 kg (220 lb) 02/18/2020 1018 EDT Height 193 cm (6' 4) 02/18/2020 1018 EDT Body Mass Index 26.78 02/18/2020 1018 EDT documented in this encounter Medications at Time [...] Departure Means Destination Home or Self Care Wheelchair Home documented in this encounter Progress Notes * Lenka Morales RN - 02/18/2020 1020 EDT Have you had any of the following symptoms? Runny Nose:no Fever:no Shortness of Breath:no Cough:no Fatigue:no Diarrhea not related to prep or chronic illness:no Have you traveled to a high risk area within the past 14 days?no Reference: Https://wwwnc.cdc.gov/travel.notices Have you been in close contact (less than 6 feet) with someone who has been diagnosed with COVID 19?no documented in this encounter H&P Notes * Sara Mendez MD - 02/18/2020 1129 EDT Endoscopy Sedation for Procedure History & Physical Date: 02/18/2020 Time: 11:29 Location: [facility] GI/ENDO Planned Procedure: Procedure(s): COLONOSCOPY PROCEDURE-GI Chief Complaint/Indications for Procedure: diagnostic, pneumaturia; personal history of polyps History Previous Complication with Sedation and/or Anesthesia? Allergies: Allergies Allergen Reactions ??? Steroid [Corticosteroids (Glucocorticoids)] Other (See Comments) Paranoia, edison Current Medications: Current Facility-Administered Medications: dextrose 50 % solution 12.5 g intravenous PRN diphenhydrAMINE (BENADRYL) injection 25 mg intravenous Once PRN lactated ringers (LR) infusion intravenous CONTINUOUS lidocaine (PF) 10 mg/mL (1 %) injection 2 mg intradermal PRN lidocaine (PF) 10 mg/mL (1 %) injection 2 mg intradermal PRN ondansetron (PF) (ZOFRAN) injection 4 mg intravenous PRN sodium chloride 0.9 % (flush) flush 3 mL intravenous PRN Past Medical History: Past Medical History: Diagnosis Date ??? Colon polyp Social History: Past Surgical History: Procedure Laterality Date ??? APPENDECTOMY ??? TONSILLECTOMY Social History Tobacco Use ??? Smoking status: Former Smoker Packs/day: 2.00 Years: 30.00 Pack years: 60.00 Types: Cigarettes Last attempt to quit: 1994 Years since quittin.3 ??? Smokeless tobacco: Never Used Substance Use Topics ??? Alcohol use: Yes Alcohol/week: 7.0 standard drinks Types: 7 Glasses of wine per week Family History: History reviewed. No pertinent family history. Review of Systems as pertinent: Physical Exam Vital Signs: BP (!) 143/106 (BP Cuff Location: Left arm, BP Patient Position: Semi fowlers) Comment: RN informed of baseline vital signs Pulse 88 Temp 36.7 ??C (98.1 ??F) (Tympanic) Comment (Src): right ear Resp 20 Ht (!) 193 cm (76) Wt 99.8 kg (220 lb) SpO2 96% BMI 26.78 kg/m?? Heart Examination: Cardiac Regularity: Regular Respiratory Examination: Respiratory Pattern: Regular Breath Sounds Right: Clear Breath Sounds Left: Clear Abdominal Examination: Soft, non-tender, bowel sounds normal, no masses, no organomegaly Additional physical exam related to the proposed procedure, patient activity, disease state and treatment as pertinent: Assessment Previous complications with sedation or anesthesia?: No Airway Concerns: None/NA Anesthesia Classification: ASA 2 Plan: Proceed with sedation for procedure Fasting Time: Date of Last Liquid: 02/18/20 Time of Last Liquid: 09 Date of Last Solid: 02/16/20 Time of Last Solid: 2358 Patient Appropriate Candidate for Planned Sedation?: Yes Sara Mendez MD 02/18/2020 11:29 documented in this encounter Miscellaneous Notes * Sedation Documentation - Krissy Rowland RN - 02/18/2020 1147 EDT Abdominal pressure applied. documented in this encounter Plan of Treatment Not on file documented as of this encounter Procedures Procedure Name Priority Date/Time Associated Diagnosis Comments COLONOSCOPY PROCEDURE Routine 02/18/2020 12:08 EDT COLONOSCOPY 02/18/2020 11:30 EDT History of colon polyps documented in this encounter Results * COLONOSCOPY PROCEDURE (02/18/2020 12:08 EDT) Anatomical Region Laterality Modality Endoscopy Narrative 02/18/2020 12:08 EDT Procedure Performed Colonoscopy Indications for Exam pneumaturia; CT scan with air in bladder; personal history of polyps Procedure Technique A physical exam was performed. Informed consent was obtained from the patient after explaining all the risks (perforation, bleeding, missed findings, injury to nearby organs, infection and adverse effects to the medicine), benefits and alternatives to the procedure which the patient appeared to understand and so stated. ??The patient was connected to the monitoring devices and placed in the left lateral position. Continuous oxygen was provided with a nasal cannula and IV medicine administered thru an indwelling cannula. After adequate sedation was achieved, a digital exam was performed and the colonoscope introduced into the rectum and advanced under direct visualization to the cecum. The cecum was identified by visual landmarks. The endoscope was subsequently removed slowly while carefully examining the color, texture, anatomy, and integrity of the mucosa on withdrawal. Retroflexion was performed in the rectum: Yes. The patient was subsequently transferred to the recovery area in satisfactory condition. Rectal Exam:Normal Estimated Blood Loss: None Complications None Medications Versed 3 mg Demerol 75 mg I was in continuous face to face attendance during the administration of moderate sedation services that were monitored by an independent trained observer who had no other duties during the procedure. ??Total sedation time was 26 ?? minutes. [place] Bowel Prep Right Colon: 3 ? Transverse Colon: 3 ? Left Colon: 3 ?Total: 9 Findings Diverticulosis in the sigmoid colon. Diagnosis Diverticulosis in the sigmoid colon. Recommendations Repeat colonoscopy in 10 years. Follow up with me in clinic. ??Will call for appointment This electronic signature authenticates all electronic and/or handwritten documentation, including orders, generated by the signer during the episode of care contained in this record. 02/18/2020 12:08:32 PM By Sara Mendez MD Sara Mendez MD GI PROCEDURE ORDERAB LES documented in this encounter Visit Diagnoses Diagnosis History of colon polyps Personal history of colonic polyps documented in this encounter Admitting Diagnoses Diagnosis Diverticulitis large intestine Diverticulitis of colon (without mention of hemorrhage) documented in this encounter Administered Medications Inactive Administered Medications - up to 3 most recent administrations Medication Order MAR Action Action Date Dose Rate Site chlorhexidine gluconate 2 % cloth 1 Each 1 Each, topical, PRE-OP MULTIPLE, Starting on Tuyet 02/18/20 at 1209, Until Tuyet 02/18/20 at 1654, Other, Routine, Preprocedure dextrose 50 % solution 12.5 g 12.5 g, intravenous, PRN, 1 dose, Starting on Tuyet 02/18/20 at 1006, Until Tuyet 02/18/20 at 1654, Low Blood Sugar, Routine, Preprocedure diphenhydrAMINE (BENADRYL) injection 25 mg 25 mg, intravenous, ONCE PRN, 1 dose, Starting on Tuyet 02/18/20 at 1006, Until Tuyet 02/18/20 at 1654, Sleep, Routine, Preprocedure lactated ringers (LR) infusion 30 mL/hr, intravenous, CONTINUOUS, Starting on Tuyet 02/18/20 at 1030, Until Tuyet 02/18/20 at 1654, Routine, Preprocedure New Bag 02/18/2020 10:38 EDT 30 mL/hr 30 mL/hr lactated ringers (LR) infusion 25 mL/hr, intravenous, CONTINUOUS, Starting on Tuyet 02/18/20 at 1230, Until Tuyet 02/18/20 at 1654, Routine, Preprocedure lidocaine (PF) 10 mg/mL (1 %) injection 2 mg 2 mg, intradermal, PRN, 4 doses, Starting on Tuyet 02/18/20 at 1209, Until Tuyet 02/18/20 at 1654, peripheral intravenous catheter placement, Routine, Preprocedure meperidine (PF) (DEMEROL) injection intravenous, PRN, Starting on Tuyet 02/18/20 at 1134, Until Tuyet 02/18/20 at 1136, Routine Given 02/18/2020 11:36 EDT 25 mg IV Given 02/18/2020 11:34 EDT 50 mg IV midazolam (MDV) (VERSED) injection intravenous, PRN, Starting on Tuyet 02/18/20 at 1134, Until Tuyet 02/18/20 at 1136, Routine Given 02/18/2020 11:36 EDT 1 mg IV Given 02/18/2020 11:34 EDT 2 mg IV ondansetron (PF) (ZOFRAN) injection 4 mg 4 mg, intravenous, PRN, 2 doses, Starting on Tuyet 02/18/20 at 1006, Until Tuyet 02/18/20 at 1654, Nausea, Vomiting, Routine, Intraprocedure sodium chloride 0.9 % (flush) flush 3 mL 3 mL, intravenous, PRN, Starting on Tuyet 02/18/20 at 1006, Until Tuyet 02/18/20 at 1654, Line Care, Routine, Preprocedure documented in this encounter Discontinued Medications Medication Sig Discontinue Reason Start Date End Da te polyethylene glycol (GOLYTELY) 236-22.74-6.74 -5.86 gram suspension Patient to follow one time directions as directed by Dr Mendez office. Therapy completed 01/05/2020 02/18/2020 documented as of this encounter Active and Recently Administered Medications Times are shown in EDT. Scheduled Medication Order 02/16/2020 02/17/2020 02/18/2020 acetaminophen (TYLENOL) tablet 1,000 mg 1,000 mg, oral, PRE-OP ONCE, 1 dose, On Tuyet 02/18/20 at 1230, Routine, Preprocedure 1230 (Canceled Entry - Provider: Batch Job User Admin - Comment: Automatically canceled at discontinue of medication order) ceFAZolin (ANCEF) syringe 2 g(Linked Group 1) 2 g, intravenous, Administer over 10 Minutes, PRE-OP ONCE, 1 dose, On Tuyet 02/18/20 at 1230, Routine, Preprocedure 1230 (Canceled Entry - Provider: Batch Job User Admin - Comment: Automatically canceled at discontinue of medication order) dexaMETHasone (DECADRON) injection 8 mg 8 mg, intravenous, PRE-OP ONCE, 1 dose, On Tuyet 02/18/20 at 1230, Routine, Preprocedure 1230 (Canceled Entry - Provider: Batch Job User Admin - Comment: Automatically canceled at discontinue of medication order) gabapentin (NEURONTIN) capsule 900 mg 900 mg, oral, PRE-OP ONCE, 1 dose, On Tuyet 02/18/20 at 1230, Routine, Preprocedure 1230 (Canceled Entry - Provider: Batch Job User Admin - Comment: Automatically canceled at discontinue of medication order) granisetron HCL (KYTRIL) injection 1 mg 1 mg, intravenous, PRE-OP ONCE, 1 dose, On Tuyet 02/18/20 at 1230, Routine, Preprocedure 1230 (Canceled Entry - Provider: Batch Job User Admin - Comment: Automatically canceled at discontinue of medication order) heparin injection 5,000 Units 5,000 Units, subcutaneous, INTRA-OP ONCE, 1 dose, On Tuyet 02/18/20 at 1230, Routine, Preprocedure 1230 (Canceled Entry - Provider: Batch Job User Admin - Comment: Automatically canceled at discontinue of medication order) metronidazole (FLAGYL) infusion 500 mg(Linked Group 1) 500 mg, intravenous, Administer over 30 Minutes, PRE-OP ONCE, 1 dose, On Tuyet 02/18/20 at 1230, Routine, Preprocedure 1230 (Canceled Entry - Provider: Batch Job User Admin - Comment: Automatically canceled at discontinue of medication order) Continuous Medication Order 02/16/2020 02/17/2020 02/18/2020 lactated ringers (LR) infusion 30 mL/hr, intravenous, CONTINUOUS, Starting on Tuyet 02/18/20 at 1030, Until Tuyet 02/18/20 at 1654, Routine, Preprocedure 1038 (New Bag - Prov ider: Alvina Llamas, VIVEK)1237 (Completed - Provider: Alvina Llamas RN) lactated ringers (LR) infusion 25 mL/hr, intravenous, CONTINUOUS, Starting on Tuyet 02/18/20 at 1230, Until Tuyet 02/18/20 at 1654, Routine, Preprocedure 1230 (Canceled Entry - Provider: Batch Job User Admin - Comment: Automatically canceled at discontinue of medication order) PRN Medication Order 02/16/2020 02/17/2020 02/18/2020 chlorhexidine gluconate 2 % cloth 1 Each 1 Each, topical, PRE-OP MULTIPLE, Starting on Tuyet 02/18/20 at 1209, Until Tuyet 02/18/20 at 1654, Other, Routine, Preprocedure dextrose 50 % solution 12.5 g 12.5 g, intravenous, PRN, 1 dose, Starting on Tuyet 02/18/20 at 1006, Until Tuyet 02/18/20 at 1654, Low Blood Sugar, Routine, Preprocedure diphenhydrAMINE (BENADRYL) injection 25 mg 25 mg, intravenous, ONCE PRN, 1 dose, Starting on Tuyet 02/18/20 at 1006, Until Tuyet 02/18/20 at 1654, Sleep, Routine, Preprocedure lidocaine (PF) 10 mg/mL (1 %) injection 2 mg 2 mg, intradermal, PRN, 4 doses, Starting on Tuyet 02/18/20 at 1209, Until Tuyet 02/18/20 at 1654, peripheral intravenous catheter placement, Routine, Preprocedure meperidine (PF) (DEMEROL) injection (COMPLETED) intravenous, PRN, Starting on Tuyet 02/18/20 at 1134, Until Tuyet 02/18/20 at 1136, Routine 1134 (Given - Provid er: Krissy Rowland RN)1136 (Given - Provider: Krissy Rowland RN) midazolam (MDV) (VERSED) injection (COMPLETED) intravenous, PRN, Starting on Tuyet 02/18/20 at 1134, Until Tuyet 02/18/20 at 1136, Routine 1134 (Given - Provid er: Krissy Rowland RN)1136 (Given - Provider: Krissy Rowland RN) ondansetron (PF) (ZOFRAN) injection 4 mg 4 mg, intravenous, PRN, 2 doses, Starting on Tuyet 02/18/20 at 1006, Until Tuyet 02/18/20 at 1654, Nausea, Vomiting, Routine, Intraprocedure sodium chloride 0.9 % (flush) flush 3 mL 3 mL, intravenous, PRN, Starting on Tuyet 02/18/20 at 1006, Until Tuyet 02/18/20 at 1654, Line Care, Routine, Preprocedure Linked Groups Order Group 1: ceFAZolin (ANCEF) syringe 2 gJump to med 2 g, intravenous, Administer over 10 Minutes, PRE-OP ONCE, 1 dose, On Tuyet 02/18/20 at 1230, Routine, Preprocedure And metronidazole (FLAGYL) infusion 500 mgJump to med 500 mg, intravenous, Administer over 30 Minutes, PRE-OP ONCE, 1 dose, On Tuyet 02/18/20 at 1230, Routine, Preprocedure documented in this encounter Orders Medications Ordered That Emanuel ht Not Have Been Administered Count Last Ordered Date First Ordered Date acetaminophen (TYLENOL) tablet 1,000 mg 1 0 02/18/2020 ceFAZolin (ANCEF) syringe 2 g 1 02/18/2020 chlorhexidine gluconate 2 % cloth 1 Each 1 02/18/2020 dexaMETHasone (DECADRON) injection 8 mg 1 0 02/18/2020 dextrose 50 % solution 12.5 g 1 02/18/2020 diphenhydrAMINE (BENADRYL) injection 25 mg 1 02/18/2020 gabapentin (NEURONTIN) capsule 900 mg 1 granisetron HCL (KYTRIL) injection 1 mg 1 0 02/18/2020 heparin injection 5,000 Units 1 02/18/2020 lactated ringers (LR) infusion 1 02/18/2020 lidocaine (PF) 10 mg/mL (1 % ) injection 2 mg 3 02/18/2020 metronidazole (FLAGYL) infusion 500 mg 1 ondansetron (PF) (ZOFRAN) injection 4 mg 1 02/18/2020 sodium chloride 0.9 % (flush) flush 3 mL 1 02/18/2020 Admission Count Last Ordered Date First Orde red Date ADMIT TO INPATIENT 1 02/18/2020 Case Request Count Last Ordered Date First Orde red Date CASE REQUEST OPERATING ROOM 1 02/18/2020 documented in this encounter Care Teams Detailer Furniture Relationship Specialty Start Date End Date Kylie Oglesby [address] [place] [address] PCP - General Internal Medicine - Primary Care 12/15/19 documented as of this encounter
--- OUTSIDE RECORDS SUMMARY | 2024-05-18 13:19 | XMS_ITS | Encounter Summary ---
Author Organization [facility] Address [address] [place] [address] Care Team Providers Care Instructor Knitting Name Role Phone Kylie Oglesby Primary Care Provider [phone] Reason for Visit * Reason Onset Date Comments Patient Information Update 01/08/2020 Encounter Details Date Type Department Care Team (Late st Contact Info) Description 01/08/2020 Telephone [facility] General Surgery - [facility] [address] [place], [place] [id number] Sara Mendez MD [address] [facility], [address] [place] [address] Patient Information Update Social History Tobacco Use Types Packs/Day Years Used Date Smoking Tobacco: Former Cigarettes 2 30 1 965 - 1994 Smokeless Tobacco: Never Sex and Gender Information Value Date Recorded Sex Assigned at Not on file Gender Identity Male 11/28/2019 13:59 EST Sexual Orientation Not on file documented as of this encounter Miscellaneous Notes * Telephone Encounter - Farheen Byers RN - 01/08/2020 1232 EDT I called Jasbir to tell him I relayed his message to Dr Mendez. I also told him I sent the Golytely to the [facility] in [place] and he will pick it up today. * Telephone Encounter - Tiff Guevara - 01/08/2020 1004 EDT Patient had a test where he took poppy seeds to see if the came out in his urine. There were no seeds in his urine. Dr. Mendez wanted him to let her know the outcome. documented in this encounter Plan of Treatment Not on file documented as of this encounter Visit Diagnoses Not on filedocumented in this encounter Care Teams Instructor Knitting Relationship Specialty Start Date End Date Kylie Oglesby [address] [place] [address] PCP - General Internal Medicine - Primary Care 12/15/19 documented as of this encounter
--- OUTSIDE RECORDS SUMMARY | 2024-05-18 13:19 | XMS_ITS | Encounter Summary ---
Author Organization [facility] Address [address] [place] [address] Care Team Providers Care Hurl Shaker Name Role Phone Unknown, Provider Primary Care Provider [phone] Encounter Details Date Type Department Care Team (Latest Contact Info) Description 12/01/2019 Travel Social History Tobacco Use Types Packs/Day Years Used Date Smoking Tobacco: Never Smokeless Tobacco: Never Sex and Gender Information Value Date Recorded Sex Assigned at Not on file Gender Identity Male 11/28/2019 13:59 EST Sexual Orientation Not on file documented as of this encounter Plan of Treatment Not on file documented as of this encounter Visit Diagnoses Not on filedocumented in this encounter Care Teams Hurl Shaker Relationship Specialty Start Date End Date Unknown, Provider, PCP - General 10/15/16 12/14/19 documented as of this encounter
--- OUTSIDE RECORDS SUMMARY | 2024-05-18 13:19 | XMS_ITS | Encounter Summary ---
Author Organization [facility] Address [address] [place] [address] Care Team Providers Care Health Care Coach Name Role Phone Kylie Oglesby Primary Care Provider [phone] Reason for Visit * Reason Onset Date Comments Medications Refill 01/12/2020 Encounter Details Date Type Department Care Team (Late st Contact Info) Description 01/12/2020 Telephone [facility] [address] [place], [place] [id number] Cathryn Monzon, SPACER TYPE BAR AND SEGMENT [address] [place] [address] Medications Refill Social History Tobacco Use Types Packs/Day Years Used Date Smoking Tobacco: Former Cigarettes 2 30 1 965 - 1994 Smokeless Tobacco: Never Sex and Gender Information Value Date Recorded Sex Assigned at Not on file Gender Identity Male 11/28/2019 13:59 EST Sexual Orientation Not on file documented as of this encounter Miscellaneous Notes * Telephone Encounter - Jose Styles - 03/04/2020 1011 EDT Cathryn Monzon is reviewing, this pt has a fistula and a complicated situation, this is an old order we placed also . * Telephone Encounter - Jose Styles - 01/12/2020 1410 EDT Pt will drop off at local PCP for minimal risk of COVID 19 exposure. * Telephone Encounter - Jensen Jose - 01/12/2020 1214 EDT Pt has been experiencing burning and frequency is going to drop a urine specimen off to lab and await results, pt is on nitrofurantoin 50 mg but doesn't seem to take care of the symptoms. documented in this encounter Plan of Treatment Not on file documented as of this encounter Procedures Procedure Name Priority Date/Time Associated Diagnosis Comments BACTERIAL CULTURE, URINE Routine 03/01/2020 15:55 EDT Acute cystitis without hematuria documented in this encounter Results * (ABNORMAL) BACTERIAL CULTURE, URINE (03/01/2020 15:55 EDT) Organism ID Greater than 100,000 CFU/ml Enterobacter cloacae complex(A) VITEK SUSCEPTIBILITY 0 7:22 EDT [facility] Comment: Third generation cephalosporins, such as ceftazidime, ceftriaxone, and cefpodoxime, should be avoided for treatment of this organism regardless of in vitro susceptibility. Organism ID Greater than 100,000 CFU/ml Klebsiella pneumoniae(A) VITEK SUSCEPTIBILITY 0 7:22 EDT [facility] Comment: Cefazolin susceptibility results can be used to predict susceptibility results for the following oral cephalosporins when used for therapy of uncomplicated UTIs due to E.coli, K.pneumoniae, and P.mirabilis: cefaclor, cefdinir, cefpodoxime, cefprozil, cefuroxime, cephalexin, loracarbef. Cefdinir, cefpodoxime, and cefuroxime may be tested individually because some isolates may be susceptibile to these agents while testing resistance to cefazolin. Please note that only cefpodoxime and cephalexin are on the [facility] inpatient formulary. Urine URINE SPECIMEN OBTAINED BY CLEAN CATCH PROCEDURE / Unknown Urine Collect / Unknown 03/01/2020 15:55 EDT 03/01/2020 18:40 EDT Narrative Organism Antibiotic Method Susceptibility Enterobacter cloacae complex Ampicillin VITEK SUSCEPTIBILITY Resistant Enterobacter cloacae complex Ciprofloxacin VITEK SUSCEPTIBILITY <=0.25 ug/mL: Susceptible Enterobacter cloacae complex Ertapenem VITEK SUSCEPTIBILITY <=0.5 ug/mL: Susceptible Enterobacter cloacae complex Meropenem VITEK SUSCEPTIBILITY <=0.25 ug/mL: Susceptible Enterobacter cloacae complex Nitrofurantoin VITEK SUSCEPTIBILITY 32 ug/mL: Susceptible Enterobacter cloacae complex Piperacillin Tazobactam VITEK SUSCEPTIBILITY <=4 ug/mL: Susceptible Enterobacter cloacae complex Trimethoprim-Sulfameth oxazole VITEK SUSCEPTIBILITY <=20 ug/mL: Susceptible Klebsiella pneumoniae Ampicillin VITEK SUSCEPTIBILITY 16 ug/mL: Resistant Klebsiella pneumoniae Cefazolin VITEK SUSCEPTIBILITY <=4 ug/mL: Susceptible Klebsiella pneumoniae Ceftriaxone VITEK SUSCEPTIBILITY <=1 ug/mL: Susceptible Klebsiella pneumoniae Ciprofloxacin VITEK SUSCEPTIBILITY <=0.25 ug/mL: Susceptible Klebsiella pneumoniae Ertapenem VITEK SUSCEPTIBILITY <=0.5 ug/mL: Susceptible Klebsiella pneumoniae Meropenem VITEK SUSCEPTIBILITY <=0.25 ug/mL: Susceptible Klebsiella pneumoniae Nitrofurantoin VITEK SUSCEPTIBILITY 32 ug/mL: Susceptible Klebsiella pneumoniae Piperacillin Tazobactam VITEK SUSCEPTIBILITY <=4 ug/mL: Susceptible Klebsiella pneumoniae Trimethoprim-Sulfameth oxazole VITEK SUSCEPTIBILITY <=20 ug/mL: Susceptible Cathryn Monzon SPACER TYPE BAR AND SEGMENT MICROBIOLOGY - GENE [facility] ORDERABLES Performing Organization Address City/State/[facility] Co de Phone Number [facility] [address] [place] [phone] documented in this encounter Visit Diagnoses Diagnosis Acute cystitis without hematuria- Primary Acute cystitis documented in this encounter Care Teams Health Care Coach Relationship Specialty Start Date End Date Kylie Oglesby [address] [facility] [place] [address] PCP - General Internal Medicine - Primary Care 12/15/19 documented as of this encounter
--- OUTSIDE RECORDS SUMMARY | 2024-05-18 13:19 | XMS_ITS | Encounter Summary ---
Author Organization [facility] Address [address] [place] [address] Care Team Providers Care Compliance Advisor Name Role Phone Kylie Oglesby Primary Care Provider Reason for Visit * Auth/Cert Specialty Diagnoses / Procedures Referred By Kavitha t Referred To Contact Diagnoses Colovesical fistula Procedures WY LAP,SURG,COLECTOMY, PARTIAL, W/ANAST Diagnostic laparoscopy with possible sigmoid colectomy Referral ID Status Reason Start Date Expiration Date Visits Re quested Visits Authorized [id number] 1 1 Encounter Details Date Type Department Care Team (Late st Contact Info) Description 03/17/2020 8:25 EDT - 03/17/2020 12:35 EDT Surgery [facility] OR [address] [place] [address] [id number] Sara Mendez MD [address] [place] [address], [address] [place] [address] Diagnostic laparoscopy with possible sigmoid colectomy [18093 (CPT??)] Surgery Details Date/Time Status Location OR Service Patient Class Case Class Case Type Trauma Case? 03/17/20 0825 Posted [facility] OR MOR 14 General Surgery Admit H - Elective Panel 1 Procedure LRB Anes Op Region Wound Class Comments Diagnostic laparoscopy with possible sigmoid colectomy N/A General Abdomen Class I/ Clean 3.5 hours Surgeon Surgeon Role Service Panel Sara Mendez MD Primary General 1 Special Needs lithotomy, right arm tuckedRAS, Pinpoint SPYEnhanced recovery protocolpediatric colonoscope and tower documented in this encounter Social History Tobacco [...] Sign Reading Time Taken Comments Blood Pressure 123/74 03/17/2020 1230 EDT Pulse - - Temperature 37.4 ??C (99.3 ??F) 03/17/2020 1207 EDT Respiratory Rate 21 03/17/2020 1230 EDT Oxygen Saturation 98% 03/17/2020 1230 EDT Inhaled Oxygen Concentration - - Weight 101.1 kg (222 lb 14.2 oz) 03/17/2020 0755 EDT Height - - Body Mass Index 27.13 03/17/2020 0755 EDT [...] 03/01/2020 Added automatically from request for surgery [id number] ??? Diverticulitis 03/01/2020 Added automatically from request for surgery [id number] Resolved Hospital Problems No resolved problems to [...] [Corticosteroids (Glucocorticoids)] Other (See Comments) Paranoia, crazy Immunization History Administered Date(s) Administered ??? Influenza [...] Post Op Visit with Sara Mendez MD [facility] Surgery [facility] (--) [address] [facility] [address] Follow-up appointments and procedures Amb Consult/Follow Up Home Health Services I certify that this patient is under my care and that I, or another Medicare authorized non-physician practitioner (PA or WOOD ROOM HAND) or resident working with me, had a ipsc-it-crfn encounter with this patient on this date: 03/25/2020 I further certify that the hbtt-dg-oabe encounter was in whole or in part related to the reason thepatient needs home health care.: Yes The patient has had a pxis-fe-xdpz visit by me or one of my [...] Skilled Care Requested: Physical Therapy Nursing asessment assisted assessment needed related to this encounter: GI Status Physical therapy is needed for: Safety Strength Training/Exercise Program Gait/Mobility Assessment and Training Expected Discharge Date (Inpatient Only): 03/25/2020 Authorizing Provider: Es Peace APRN Follow-up Appointment Please call our clinic at [phone] to schedule a follow up appointment with [...] the patient and discussed with the resident/medical student/WOOD ROOM HAND team. I agree with the findings and plan of care documented in the resident's/medical student's/WOOD ROOM HAND's note. Sara Mendze Division of General Surgery Colon and Rectal [...] Disposition Code Departure Means Destination Home-Health Care c Home documented in this encounter Progress Notes * Muriel Gaona - 03/25/2020 1310 EDT CM Note Pt advancing diet; progressing with activity. He will dc home with SN and PT services when medically ready likely next 24-48 hours. agency is [facility]. Ami Gaona RN CCM [id number] * Korin Srivastava MD - 03/25/2020 2828 EDT Blue Surgery Progress Note Chief complaint: [...] General Surgery PGY2 [id number] * Es Peace, GUIDEMAN - 03/24/2020 0822 EDT Surgery Daily Progress [...] fistula Added automatically from request for surgery [id number] ??? Diverticulitis Added automatically from request for surgery [id number] Jasbir Kate is a 79 y.o. male [...] Enoxaparin Es Peace APRN 03/24/2020 8:22 Pager #[phone] * Thania Landaverde - 03/23/2020 1401 EDT Nutrition Note: Reason for Assessment: NPO/CL greater than/equal to 5 days Patient identified at risk due to NPO/CL day 6 today. Sounds to be having return of bowel function,NGT removed. Will continue to follow to see if needs full nutrition assessment. Thania Landaverde RD (Betsy), CD, [facility] B6 Dietitian Pager: [phone] * Jaguar Liang MD - 03/23/2020 0818 EDT Blue Surgery Progress Note Chief complaint: [...] attestation - Sara Mendez MD - 03/23/2020 0966 EDT Check drain creatinine, if ok, pull drain. I saw and examined the patient and discussed with the resident/medical student/WOOD ROOM HAND team. I agree with the findings and plan of care documented in the resident's/medical student's/WOOD ROOM HAND's note. Sara Mendez Division of General Surgery Colon and Rectal Surgery * Es Peace, GUIDEMAN - 03/22/2020 5303 EDT Surgery Daily Progress Note Patient: Jasbir [...] fistula Added automatically from request for surgery [id number] ??? Diverticulitis Added automatically from request for surgery [id number] ?? Jasbir Kate is a 79 y.o. [...] DVT Prophylaxis: Ambulate, SCD's, Enoxaparin Es Peace, GUIDEMAN 03/22/2020 7:19 Pager #[phone] Associated attestation - Sara Mendez MD - 03/22/2020 2580 EDT + BM, continued flatus. Still distended, but much improved from Saturday. Will trial clamping, but will be slow to progress diet. Cystogram today. I saw and examined the patient and discussed with the resident/medical student/WOOD ROOM HAND team. I agree with the findings and plan of care documented in the resident's/medical student's/WOOD ROOM HAND's note. Sara Mendez Division of General Surgery [...] function Korin Srivastava MD General Surgery PGY1 X-[id number] Attestation statement: I saw and examined the patient with the resident/fellow. I agree with the findings and plan of care documented in the resident's/fellow's note. Abdomen soft, slightly distended. NGT today. IVF. Keep kincaid in. Cystogram tomorrow. -Jett Bone MD * Korin Srivastava MD - 03/20/2020 5700 EDT Blue Surgery Progress Note Chief complaint: Colovesical Fistula Procedure: 03/17/2020 - Laparoscopic hand assisted sigmoid colectomy with rigid proctoscopy and flexible sigmoidoscopy with placement of 19Fr luis armando drain. 24 hour events: -Nausea and emesis this AM Subjective: [place] nauseous this morning and spit up what [...] the patient and discussed with the resident/medical student/WOOD ROOM HAND team. I agree with the findings and plan of care documented in the resident's/medical student's/WOOD ROOM HAND's note. Sara Mendez Division of General Surgery Colon and Rectal Surgery * Muriel Gaona - 03/18/2020 9176 EDT Initial Case Management/Social Work Assessment and Discharge Plan/Readmission Risk Assessment REASON FOR ADMISSION: Colovesical fistula now POD 1 sigmoidectomy and fistula takedown Patient understands reason for admission: Yes PATIENT CONTACT INFO VERIFIED: Yes PATIENT ADDRESS VERIFIED: Yes([address] [place] [address]) LIVING ARRANGEMENTS AND ACCESSIBILITY ISSUES: Living Arrangements: Spouse / significant other Levels: 1 Bathroom located on bedroom level?: Yes What in home social supports are available to the patient? Spouse / significant other Is 24/7 care available? Yes ADVANCED DIRECTIVES, POA &/or COLST IN PLACE: Healthcare Directive: Yes, patient has advance directive for healthcare treatment Type of Healthcare Directive: Durable power of keycase assembler for health care Copy in Chart: Yes, new copy in paper chart @ [facility] DIRECTIVES FOR FINANCES: TRANSPORTATION: Transportation: Family, Self CULTURAL, ANABAPTIST and/or LANGUAGE factors affecting health care/discharge planning: [...] Health Services: Nurse visit DME Provider: Pharmacy: [id number] - [place], [place] - [address] [place] [address] Home Health: Referral to [facility] per pt preference Other: POST HOSPITAL TRANSITION PLAN: Pt lives with supportive spouse. Active and independent at baseline.CM following and will assist with dc plans as needed. Ami Gaona RN CCM [phone] 03/18/2020 * Es Peace, SUPA - 03/18/2020 0800 EDT Surgery Daily Progress [...] fistula Added automatically from request for surgery ??? Diverticulitis Added automatically from request for surgery Jasbir Kate is a 79 y.o. male [...] DVT Prophylaxis: Ambulate, SCD's, Enoxaparin at Es Peace, GUIDEMAN 03/18/2020 8:00 Pager #[phone] Associated attestation - Sara Mendez MD - 03/19/2020 0896 EDT Distended, but minimally tender. Making good urine. No further fevers, treating UTI (present on admission from colovesicular fistula). I saw and examined the patient and discussed with the resident/medical student/WOOD ROOM HAND team. I agree with the findings and plan of care documented in the resident's/medical student's/WOOD ROOM HAND's note. Sara Mendez Division of General Surgery Colon and Rectal Surgery * Korin Srivastava MD - 03/17/2020 8890 EDT SURGERY POST-OP CHECK SUBJECTIVE: Is having lower abdominal pain near his incision, but states the pain has been relatively well controlled. Has not been OOB. Not passing flatus. Has tolerated sips of water without nauseaor vomiting. [place] chilled a couple hours ago, but feels [...] use Korin Srivastava MD 03/17/2020 15:55 Surgical [facility] Pie Pager #[phone] documented in this encounter H&P Notes * Sara Mendez MD - 03/17/2020 0720 EDT The preoperative history and physical which [...] been seen by the urology department at [facility] with Cathryn Monzon. She did a CT [...] 25 years ago but has about a 69-ueyt-xjll history. drinks wine daily. 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 He goes to the gym 3 times a week and either sits on the bike or the elliptical machine. He denies any chest pain with exertion, but does have some shortness of breath ifhe walks out 2 flights of stairs ?? Colonoscopy was about 2 to 3 years ago at [facility]. He states it was normal. He [...] screened at designated points of entry to [facility] Patient and Family will be screened again [...] to: PreOp TL, PreOp bedside RN, PACU warehouse selector, Anesthesia and Surgeon. Managers as needed. ??? [...] dirty?? ) RN to receive patient from [facility] room in Droplet Precaution PPE and transport patient to designated room. Ensure patient is wearing a mask prior to transport. ??? PreOp Screening RN to document using COVID smart phrase (.SWACOVIDS) ??? If patient is [...] unless special circumstances (Child, cognitive impairment, and radioactivity technician). Pt temp: 36.5 Visitor Temp: Visitor Name: [...] surgeon consult No children <16 yo in [facility]. * OR Surgeon - Sara Mendez MD - 03/17/2020 0000 EDT OPERATIVE REPORT SERVICE DATE: 03/17/2020 SURGEON: Sara Mendez MD MATERIALS ASSISTANT: Es Peace APRN (No qualified resident was [...] pass it completely due to some tortuosity. Chely entered the retrorectal space from above and [...] extensively and ensured hemostasis. We left a 19-Austrian Luis Armando drain from the left lower [...] AM / Sara Mendez MD jn Confirmation: [id number] Dictation ID: [id number] documented in this encounter Miscellaneous Notes * Plan of Care - Rosalina Corona RN - 03/26/2020 1132 EDT Nursing Discharge Note D: Patient noted with discharge orders to: home. A: Prescriptions e-scripted. Reviewed discharge instructions and prescriptions with Patient. IV d/c'd. Belongings collected and sent home with patient. Report called to [facility]. Transition of care & AVS faxed. R: [...] Tolerating diet. Guaze in place over old MARCOS site, C/D/I. Action: Administered scheduled medications (see [...] Care - Renita Reid RN - 03/23/2020 8679 EDT Problem: Daily Care Plan Goals Goal: [...] Care - Keisha Shelley RN - 03/22/2020 2042 EDT Data: Pt A+Ox3. Denies pain throughout [...] Care - Moises Dent RN - 03/21/2020 1455 EDT Data: Pt on POD#4 from laparoscopic [...] prior to having kincaid catheter removed. Call [place] nie[place], will continue to monitor. MOISES DENT RN 03/21/2020 14:55 * Plan of Care - Moises Dent RN - 03/20/2020 1236 EDT Data: Pt on POD#3 from laparoscopic hand assisted sigmoid colectomy. Pt reporting nausea and vomiting upon assumption of care at 07:00. Abdomen rotund, firm, distended, ecchymosis present around lower incision and lap site with skin adhesive. Pt reporting tolerable 1/10 abdominal pain. placed NGT this AM. Action: Administered scheduled [...] Care - Corey Bahena RN - 03/20/2020 0458 EDT Data: pt a/o x 3, contact [...] Plan Documentation Outcome: Ongoing Flowsheets (Taken 03/19/2020 6047) Area of Focus: GI//Elimination Goal This Shift: [...] call judd within reach. COREY BAHENA RN 03/18/2020 3:35 [...] * Brief Op Note - Es Peace, GUIDEMAN - 03/17/2020 0754 EDT Date: 03/17/2020 Location: [facility] OR Name: Jasbir Kate, : 1940, Diagnosis Pre-op Diagnosis * Colovesical fistula [N32.1] * Diverticulitis [K57.92] Post-op Diagnosis * Colovesical fistula [N32.1] * Diverticulitis [K57.92] Procedures Diagnostic laparoscopy with possible sigmoid colectomy 54132 - WY LAP,SURG,COLECTOMY, PARTIAL, W/ANAST Laparoscopic hand assisted sigmoid colectomy with rigid proctoscopy and flexible sigmoidoscopy withplacement of 19Fr luis armando drain. Surgeons * Sara Mendez MD - Primary Procedure Summary Anesthesia: General ASA: ASA status not filed in the log. Estimated Blood Loss: 50cc Total IV Fluids: 700 mL Urine Output: 50cc Sheryl LDAs: PIV Staff: Trimmer And Reinforcer: Valeria Gaspar RN Scrub Person: Adonay Madrid RN Patient Lens Maker: Alexandrea García Indications: Tony Kate is an [...] Received Labetalol during case Electronically signed by Es Peace APRN Gabriella Score Age 2(<60=0, 60-69=1, 70-79=2, >80=4) Gender 1(Female=0, Male=1) ASA 1(I=0, II=1, III=3, IV=6) BMI 1(19-24=0, 25-30=1, >30/<19=3, wt loss >5kg/6m=3) Intoxication 0 (None=0, any smoking=1, EtOH >3d/day=1, steroids w/in 14d=4) Neoadjuvant Tx 0 (None=0, Radiation=1, Chemoradiation=2) Distance of anastomosis from anal Verge 0 (>10cm=0, 5-10cm=3, <5cm=6) Additional Procedures 0 (No=0, Yes=1) Blood loss 0 (<500=0, 500-1000=1, 6194-8603=3, >2000=6) Duration of procedure 1(<2:00=0, 2:00-2:59=1, 3:00-3:59=2, [...] 10 - 26 mg/dL 03/24/2020 6:25 EDT [facility] Blood VENOUS BLOOD / Unknown Venipuncture / Unknown 03/24/2020 5:36 EDT 03/24/2020 5:56 EDT Bahman Perez MD CHEMISTRY & BLOOD GA S ORDERABLES [facility] [address] [place] [address] * (ABNORMAL) CALCIUM (03/24/2020 5:36 EDT) Calcium 8.2(L) 8.5 - 10.5 mg/dL 03/24/2020 6:25 EDT [facility] Calculated Calcium 9.2 8.5 - 10.5 mg/dL 03/24/2020 6:25 EDT [facility] Blood VENOUS BLOOD / Unknown Venipuncture / Unknown 03/24/2020 5:36 EDT 03/24/2020 5:56 EDT Bahman Perez MD CHEMISTRY & BLOOD GA S ORDERABLES [facility] [address] [place] [address] * (ABNORMAL) COMPLETE BLOOD COUNT AND DIFFERENTIAL (03/24/2020 5:36 EDT) WBC 8.68 4.00 - 10.40 K/cmm 03/24/2020 6:02 [facility] RBC 4.38 4.36 - 5.78 M/cmm 03/24/2020 6:02 [facility] Hemoglobin 14.1 13.8 - 17.3 gm/dL 03/24/2020 6:02 [facility] HCT 42.2 39.5 - 50.2 % 03/24/2020 6:02 [facility] MCV 96(H) 81 - 95 fl 03/24/2020 6:02 [facility] MCH 32.2 27.6 - 33.0 pg 03/24/2020 6:02 [facility] MCHC 33.4 32.8 - 36.4 gm/dL 03/24/2020 6:02 [facility] RDW-CV 12.2 <14.2 % 03/24/2020 6:02 [facility] RDW-SD 43.7 <46.0 fl 03/24/2020 6:02 [facility] PLT 265 141 - 377 K/cmm 03/24/2020 6:02 [facility] MPV 10.2 9.5 - 12.7 fl 03/24/2020 6:02 [facility] % Neutrophils 72.3 % 03/24/2020 6:02 [facility] % Lymphocytes 17.1 % 03/24/2020 6:02 [facility] % Monocytes 7.1 % 03/24/2020 6:02 [facility] % Eosinophils 2.6 % 03/24/2020 6:02 [facility] % Basophils 0.3 % 03/24/2020 6:02 [facility] % Immature Grans 0.6 % 03/24/20 20 6:02 [facility] Absolute Neutrophils 6.27 2.20 - 8.85 K/cmm 03/24/2020 6:02 [facility] Absolute Lymphocytes 1.48 1.09 - 3.30 K/cmm 03/24/2020 6:02 [facility] Absolute Monocytes 0.62 0.10 - 0.80 K/cmm 03/24/2020 6:02 [facility] Absolute Eosinophils 0.23 0.03 - 0.61 K/cmm 03/24/2020 6:02 [facility] ABS Basophils 0.03 0.01 - 0.11 K/cmm 03/24/2020 6:02 [facility] Absolute Immature Grans 0.05 0.00 - 0.06 K/cmm 03/24/2020 6:02 [facility] Type of Differential: Auto 03/24/2020 6:02 [facility] Blood VENOUS BLOOD / Unknown Venipuncture / Unknown 03/24/2020 5:36 EDT 03/24/2020 5:54 EDT Bahman Perez MD PACKAGES & DNA PROBE ORDERABLES [facility] [address] [place] [address] * CREATININE (03/24/2020 5:36 EDT) Creatinine 0.66 0.66 - 1.25 mg/dL 03/24/2020 6:25 EDT [facility] eGFR 93 >60 mL/min/1.7 3m2 03/24/2020 6:25 EDT [facility] Comment:eGFR calculated usin g CKD-EPI equation for non- Americans. Multiply eGFR by 1.16 for patients. Blood VENOUS BLOOD / Unknown Venipuncture / Unknown 03/24/2020 5:36 EDT 03/24/2020 5:56 EDT Bahman Perez MD CHEMISTRY & BLOOD GA S ORDERABLES Performing Organization Address [facility] de Phone Number [facility] [address] [place] [address] * ELECTROLYTES (03/24/2020 5:36 EDT) Sodium 139 136 - 145 mEq/L 03/24/2020 6:25 EDT [facility] Potassium 3.9 3.5 - 5.0 mEq/L 03/24/2020 6:25 EDT [facility] Chloride 108 96 - 110 mEq/L 03/24/2020 6:25 EDT [facility] CO2 Total 23 22 - 32 mEq/L 03/24/2020 6:25 EDT [facility] Blood VENOUS BLOOD / Unknown Venipuncture / Unknown 03/24/2020 5:36 EDT 03/24/2020 5:56 EDT Bahman Perez MD CHEMISTRY & BLOOD GA S ORDERABLES Performing Organization Address City/[facility]/ZIP Co de Phone Number [facility] [address] [place] [address] * MAGNESIUM (03/24/2020 5:36 EDT) Magnesium 2.4 1.7 - 2.8 mg/dL 03/24/2020 6:25 EDT [facility] Blood VENOUS BLOOD / Unknown Venipuncture / Unknown 03/24/2020 5:36 EDT 03/24/2020 5:56 EDT Bahman Perez MD CHEMISTRY & BLOOD GA S ORDERABLES Performing Organization Address [facility] Co de Phone Number [facility] [address] [place] [address] * CREATININE, FLUID (03/23/2020 12:34 EDT) Creatinine, Fluid 0.66 See Note mg/dL 03/23/2020 14:55 EDT [facility] Comment: Peritoneal Fluid Reference range unavailable. Clinical correlation required. This Fluid Creatinine assay was developed and its performance characteristics determined by [facility]. ??It has not been cleared or approved by the [place] Food and Drug Administration. Fluid PERITONEAL FLUID / Unknown 03/23/2020 12:34 EDT 03/23/2020 14:35 EDT Jaguar Liang MD GEN LAB UNIT COLLECT ORDERABLES Performing Organization Address [facility] Co de Phone Number [facility] [address] [place] [address] * HN LAB CBC SMEAR REVIEW (03/23/2020 7:48 EDT) Differential Comment Slide was examined by a technologist to verify the WBC and/or platelet count. 03/23/2020 8:42 EDT [facility] Blood VENOUS BLOOD / Unknown Venipuncture / Unknown 03/23/2020 7:48 EDT 03/23/2020 8:05 EDT Clayton Reynoso MD HEMATOLOGY & PF4 OR DERABLES Performing Organization Address [facility] Co de Phone Number [facility] [address] [place] [address] * (ABNORMAL) COMPLETE BLOOD COUNT AND DIFFERENTIAL (03/23/2020 7:48 EDT) WBC 10.38 4.00 - 10.40 K/cmm 03/23/2020 8:43 EDT [facility] RBC 4.91 4.36 - 5.78 M/cmm 03/23/2020 8:43 EDT [facility] Hemoglobin 16.0 13.8 - 17.3 gm/dL 03/23/2020 8:43 [facility] HCT 46.9 39.5 - 50.2 % 03/23/2020 8:43 [facility] MCV 96(H) 81 - 95 fl 03/23/2020 8:43 [facility] MCH 32.6 27.6 - 33.0 pg 03/23/2020 8:43 [facility] MCHC 34.1 32.8 - 36.4 gm/dL 03/23/2020 8:43 [facility] RDW-CV 12.3 <14.2 % 03/23/2020 8:43 [facility] RDW-SD 42.5 <46.0 fl 03/23/2020 8:43 [facility] PLT 03/23/2020 8:43 [facility] Comment:Unreportable due to presence of platelet clumps. MPV 03/23/2020 8:43 [facility] Comment:Not Available % Neutrophils 77.3 % 03/23/2020 8:43 [facility] % Lymphocytes 13.8 % 03/23/2020 8:43 [facility] % Monocytes 6.8 % 03/23/2020 8:43 [facility] % Eosinophils 1.2 % 03/23/2020 8:43 [facility] % Basophils 0.4 % 03/23/2020 8:43 [facility] % Immature Grans 0.5 % 03/23/20 20 8:43 [facility] Absolute Neutrophils 8.03 2.20 - 8.85 K/cmm 03/23/2020 8:43 [facility] Absolute Lymphocytes 1.43 1.09 - 3.30 K/cmm 03/23/2020 8:43 [facility] Absolute Monocytes 0.71 0.10 - 0.80 K/cmm 03/23/2020 8:43 [facility] Absolute Eosinophils 0.12 0.03 - 0.61 K/cmm 03/23/2020 8:43 [facility] ABS Basophils 0.04 0.01 - 0.11 K/cmm 03/23/2020 8:43 EDT [facility] Absolute Immature Grans 0.05 0.00 - 0.06 K/cmm 03/23/2020 8:43 EDT [facility] Type of Differential: Auto 03/23/2020 8:43 EDT [facility] Blood VENOUS BLOOD / Unknown Venipuncture / Unknown 03/23/2020 7:48 EDT 03/23/2020 8:05 EDT Clayton Reynoso MD PACKAGES & DNA PROB E ORDERABLES Performing Organization Address [facility] de Phone Number [facility] [address] [place] [address] * CALCIUM (03/23/2020 7:48 EDT) Calcium 8.7 8.5 - 10.5 mg/dL 03/23/2020 8:14 EDT [facility] Calculated Calcium 9.0 8.5 - 10.5 mg/dL 03/23/2020 8:14 EDT [facility] Blood VENOUS BLOOD / Unknown Venipuncture / Unknown 03/23/2020 7:48 EDT 03/23/2020 7:55 EDT Clayton Reynoso MD CHEMISTRY & BLOOD G ORDERABLES Performing Organization Address [facility] de Phone Number [facility] [address] [place] [address] * MAGNESIUM (03/23/2020 7:48 EDT) Magnesium 2.5 1.7 - 2.8 mg/dL 03/23/2020 8:14 EDT [facility] Blood VENOUS BLOOD / Unknown Venipuncture / Unknown 03/23/2020 7:48 EDT 03/23/2020 7:55 EDT Clayton Reynoso MD CHEMISTRY & BLOOD G ORDERABLES Performing Organization Address [facility] Co de Phone Number [facility] [address] [place] [address] * (ABNORMAL) ELECTROLYTES (03/23/2020 7:48 EDT) Sodium 143 136 - 145 mEq/L 03/23/2020 8:14 EDT [facility] Potassium 3.2(L) 3.5 - 5.0 mEq/L 03/23/2020 8:14 EDT [facility] Chloride 109 96 - 110 mEq/L 03/23/2020 8:14 EDT [facility] CO2 Total 25 22 - 32 mEq/L 03/23/2020 8:14 EDT [facility] Blood VENOUS BLOOD / Unknown Venipuncture / Unknown 03/23/2020 7:48 EDT 03/23/2020 7:55 EDT Clayton Reynoso MD CHEMISTRY & BLOOD G ORDERABLES Performing Organization Address [facility] de Phone Number [facility] [address] [place] [address] * (ABNORMAL) CREATININE (03/23/2020 7:48 EDT) Creatinine 0.62(L) 0.66 - 1.25 mg/dL 03/23/2020 8:14 EDT [facility] eGFR 95 >60 mL/min/1.7 3m2 03/23/2020 8:14 EDT [facility] Comment:eGFR calculated ernesto g CKD-EPI equation for non- Americans. Multiply eGFR by 1.16 for patients. Blood VENOUS BLOOD / Unknown Venipuncture / Unknown 03/23/2020 7:48 EDT 03/23/2020 7:55 EDT Clayton Reynoso MD CHEMISTRY & BLOOD G ORDERABLES Performing Organization Address [facility] Co de Phone Number [facility] [address] [place] [address] * BUN (03/23/2020 7:48 EDT) BUN 16 10 - 26 mg/dL 03/23/2020 8:14 EDT [facility] Blood VENOUS BLOOD / Unknown Venipuncture / Unknown 03/23/2020 7:48 EDT 03/23/2020 7:55 EDT Clayton Reynoso MD CHEMISTRY & BLOOD G ORDERABLES Performing Organization Address City/State/[facility] Co de Phone Number [facility] [address] [place] [address] * FL CYSTOGRAM (03/22/2020 9:43 EDT) Anatomical [...] bladder Comparison: CT abdomen pelvis 12/14/2019. FINDINGS: Cook Box Filler KUB film of the abdomen shows the [...] frombladder Comparison: CT abdomen pelvis 12/14/2019. FINDINGS: Cook Box Filler KUB film of the abdomen shows the [...] 16.17(H) 4.00 - 10.40 K/cmm 03/19/2020 6:54 T [facility] RBC 5.19 4.36 - 5.78 M/cmm 03/19/2020 6:54 [facility] Hemoglobin 16.7 13.8 - 17.3 gm/dL 03/19/2020 6:54 [facility] HCT 49.2 39.5 - 50.2 % 03/19/2020 6:54 [facility] MCV 95 81 - 95 fl 03/19/2020 6:54 [facility] MCH 32.2 27.6 - 33.0 pg 03/19/2020 6:54 [facility] MCHC 33.9 32.8 - 36.4 gm/dL 03/19/2020 6:54 [facility] RDW-CV 12.4 <14.2 % 03/19/2020 6:54 EDT [facility] RDW-SD 43.0 <46.0 fl 03/19/2020 6:54 EDT [facility] PLT 233 141 - 377 K/cmm 03/19/2020 6:54 EDT [facility] MPV 10.4 9.5 - 12.7 fl 03/19/2020 6:54 EDT [facility] Blood VENOUS BLOOD / Unknown Venipuncture / Unknown 03/19/2020 6:39 EDT 03/19/2020 6:44 EDT Clayton Reynoso MD HEMATOLOGY & PF4 OR DERABLES Performing Organization Address City/[facility] Co de Phone Number [facility] [address] [place] [address] * (ABNORMAL) ELECTROLYTES (03/19/2020 6:39 EDT) Sodium 138 136 - 145 mEq/L 03/19/2020 7:21 EDT [facility] Potassium 4.1 3.5 - 5.0 mEq/L 03/19/2020 7:21 T [facility] Chloride 106 96 - 110 mEq/L 03/19/2020 7:21 T [facility] CO2 Total 20(L) 22 - 32 mEq/L 03/19/2020 7:21 EDT [facility] Blood VENOUS BLOOD / Unknown Venipuncture / Unknown 03/19/2020 6:39 EDT 03/19/2020 6:51 EDT Clayton Reynoso MD CHEMISTRY & BLOOD G ORDERABLES Performing Organization Address City/[facility] Co de Phone Number [facility] [address] [place] [address] * (ABNORMAL) CREATININE (03/19/2020 6:39 EDT) Creatinine 0.63(L) 0.66 - 1.25 mg/dL 03/19/2020 7:21 EDT [facility] eGFR 94 >60 mL/min/1.7 3m2 03/19/2020 7:21 EDT [facility] Comment:eGFR calculated ernesto cee CKD-EPI equation for non- Americans. Multiply eGFR by 1.16 for patients. Blood VENOUS BLOOD / Unknown Venipuncture / Unknown 03/19/2020 6:39 EDT 03/19/2020 6:51 EDT Clayton Reynoso MD CHEMISTRY & BLOOD G ORDERABLES Performing Organization Address [facility] Co de Phone Number [facility] [address] [place] [address] * BUN (03/19/2020 6:39 EDT) BUN 14 10 - 26 mg/dL 03/19/2020 7:21 EDT [facility] Blood VENOUS BLOOD / Unknown Venipuncture / Unknown 03/19/2020 6:39 EDT 03/19/2020 6:51 EDT Clayton Reynoso MD CHEMISTRY & BLOOD G ORDERABLES Performing Organization Address [facility] de Phone Number [facility] [address] [place] [address] * (ABNORMAL) COMPLETE BLOOD COUNT (03/18/2020 18:25 EDT) WBC 14.98(H) 4.00 - 10.40 K/cmm 03/18/2020 18:39 EDT [facility] RBC 4.98 4.36 - 5.78 M/cmm 03/18/2020 18:39 EDT [facility] Hemoglobin 16.4 13.8 - 17.3 gm/dL 03/18/2020 18:39 T [facility] HCT 47.5 39.5 - 50.2 % 03/18/2020 18:39 [facility] MCV 95 81 - 95 fl 03/18/2020 18:39 T [facility] MCH 32.9 27.6 - 33.0 pg 03/18/2020 18:39 T [facility] MCHC 34.5 32.8 - 36.4 gm/dL 03/18/2020 18:39 EDT [facility] RDW-CV 12.5 <14.2 % 03/18/2020 18:39 EDT [facility] RDW-SD 43.9 <46.0 fl 03/18/2020 18:39 EDT [facility] PLT 203 141 - 377 K/cmm 03/18/2020 18:39 EDT [facility] MPV 10.3 9.5 - 12.7 fl 03/18/2020 18:39 EDT [facility] Blood VENOUS BLOOD / Unknown Venipuncture / Unknown 03/18/2020 18:25 EDT 03/18/2020 18:31 EDT Clayton Reynoso MD HEMATOLOGY & PF4 OR DERABLES Performing Organization Address City/State/[facility] Co de Phone Number [facility] [address] [place] [id number] * (ABNORMAL) COMPLETE BLOOD COUNT (03/18/2020 16:02 EDT) WBC 16.21(H) 4.00 - 10.40 K/cmm 03/18/2020 16:52 EDT [facility] RBC 5.27 4.36 - 5.78 M/cmm 03/18/2020 16:52 [facility] Hemoglobin 17.2 13.8 - 17.3 gm/dL 03/18/2020 16:52 T [facility] HCT 50.9(H) 39.5 - 50.2 % 03/18/2020 16:52 EDT [facility] MCV 97(H) 81 - 95 fl 03/18/2020 16:52 EDT [facility] MCH 32.6 27.6 - 33.0 pg 03/18/2020 16:52 EDT [facility] MCHC 33.8 32.8 - 36.4 gm/dL 03/18/2020 16:52 EDT [facility] RDW-CV 12.5 <14.2 % 03/18/2020 16:52 EDT [facility] RDW-SD 45.0 <46.0 fl 03/18/2020 16:52 EDT [facility] PLT 226 141 - 377 K/cmm 03/18/2020 16:52 EDT [facility] MPV 10.4 9.5 - 12.7 fl 03/18/2020 16:52 EDT [facility] Blood VENOUS BLOOD / Unknown Venipuncture / Unknown 03/18/2020 16:02 EDT 03/18/2020 16:32 EDT [facility] [employer] HAND HEMATOLOGY & PF4 ORD ERABLES Performing Organization Address [facility] Co de Phone Number [facility] [address] [place] [address] * (ABNORMAL) CALCIUM (03/18/2020 6:55 EDT) Calcium 8.4(L) 8.5 - 10.5 mg/dL 03/18/2020 18:27 EDT [facility] Calculated Calcium 8.9 8.5 - 10.5 mg/dL 03/18/2020 18:27 EDT [facility] Blood VENOUS BLOOD / Unknown Venipuncture / Unknown 03/18/2020 6:55 EDT 03/18/2020 7:04 EDT Clayton Reynoso MD CHEMISTRY & BLOOD G ORDERABLES Performing Organization Address [facility] de Phone Number [facility] [address] [place] [address] * MAGNESIUM (03/18/2020 6:55 EDT) Magnesium 2.1 1.7 - 2.8 mg/dL 03/18/2020 18:27 EDT [facility] Blood VENOUS BLOOD / Unknown Venipuncture / Unknown 03/18/2020 6:55 EDT 03/18/2020 7:04 EDT Clayton Reynoso MD CHEMISTRY & BLOOD G ORDERABLES Performing Organization Address City/[facility] Co de Phone Number [facility] [address] [place] [address] * (ABNORMAL) COMPLETE BLOOD COUNT AND DIFFERENTIAL (03/18/2020 6:55 EDT) WBC 11.94(H) 4.00 - 10.40 K/cmm 03/18/2020 7:14 [facility] RBC 4.65 4.36 - 5.78 M/cmm 03/18/2020 7:14 [facility] Hemoglobin 15.3 13.8 - 17.3 gm/dL 03/18/2020 7:14 [facility] HCT 44.3 39.5 - 50.2 % 03/18/2020 7:14 [facility] MCV 95 81 - 95 fl 03/18/2020 7:14 [facility] MCH 32.9 27.6 - 33.0 pg 03/18/2020 7:14 [facility] MCHC 34.5 32.8 - 36.4 gm/dL 03/18/2020 7:14 [facility] RDW-CV 12.5 <14.2 % 03/18/2020 7:14 [facility] RDW-SD 43.6 <46.0 fl 03/18/2020 7:14 [facility] PLT 184 141 - 377 K/cmm 03/18/2020 7:14 [facility] MPV 10.0 9.5 - 12.7 fl 03/18/2020 7:14 [facility] % Neutrophils 76.9 % 03/18/2020 7:14 [facility] % Lymphocytes 14.4 % 03/18/2020 7:14 [facility] % Monocytes 8.1 % 03/18/2020 7:14 [facility] % Eosinophils 0.1 % 03/18/2020 7:14 [facility] % Basophils 0.2 % 03/18/2020 7:14 [facility] % Immature Grans 0.3 % 03/18/20 7:14 [facility] Absolute Neutrophils 9.18(H) 2.20 - 8.85 K/cmm 03/18/2020 7:14 T [facility] Absolute Lymphocytes 1.72 1.09 - 3.30 K/cmm 03/18/2020 7:14 T [facility] Absolute Monocytes 0.97(H) 0.10 - 0.80 K/cmm 03/18/2020 7:14 [facility] Absolute Eosinophils 0.01(L) 0.03 - 0.61 K/cmm 03/18/2020 7:14 T [facility] ABS Basophils 0.02 0.01 - 0.11 K/cmm 03/18/2020 7:14 [facility] Absolute Immature Grans 0.04 0.00 - 0.06 K/cmm 03/18/2020 7:14 [facility] Type of Differential: Auto 03/18/2020 7:14 [facility] Blood VENOUS BLOOD / Unknown Venipuncture / Unknown 03/18/2020 6:55 EDT 03/18/2020 7:06 EDT [facility] [employer] NP PACKAGES & DNA PROBE ORDERABLES Performing Organization Address [facility] Co de Phone Number [facility] [address] [place] [address] * CREATININE (03/18/2020 6:55 EDT) Creatinine 0.79 0.66 - 1.25 mg/dL 03/18/2020 7:35 EDT [facility] eGFR 86 >60 mL/min/1.7 3m2 03/18/2020 7:35 EDT [facility] Comment:eGFR calculated ernesto cee CKD-EPI equation for non- Americans. Multiply eGFR by 1.16 for patients. Blood VENOUS BLOOD / Unknown Venipuncture / Unknown 03/18/2020 6:55 EDT 03/18/2020 7:04 EDT [facility] NP CHEMISTRY & BLOOD GA S ORDERABLES Performing Organization Address City/[facility]/ZIP Co de Phone Number [facility] [address] [place] [address] * BUN (03/18/2020 6:55 EDT) BUN 12 10 - 26 mg/dL 03/18/2020 7:35 EDT [facility] Blood VENOUS BLOOD / Unknown Venipuncture / Unknown 03/18/2020 6:55 EDT 03/18/2020 7:04 EDT [facility] [employer] NP CHEMISTRY & BLOOD GA S ORDERABLES Performing Organization Address City/[facility] Co de Phone Number [facility] [address] [place] [address] * (ABNORMAL) ELECTROLYTES (03/18/2020 6:55 EDT) Sodium 135(L) 136 - 145 mEq/L 03/18/2020 7:35 EDT [facility] Potassium 4.2 3.5 - 5.0 mEq/L 03/18/2020 7:35 EDT [facility] Chloride 104 96 - 110 mEq/L 03/18/2020 7:35 EDT [facility] CO2 Total 23 22 - 32 mEq/L 03/18/2020 7:35 EDT [facility] Blood VENOUS BLOOD / Unknown Venipuncture / Unknown 03/18/2020 6:55 EDT 03/18/2020 7:04 EDT [facility] [employer] NP CHEMISTRY & BLOOD GA S ORDERABLES [facility] [address] [place] [address] * (ABNORMAL) SCREENING GLUCOSE (03/18/2020 6:55 EDT) Glucose, Screening 107(H) 70 - 100 mg/dL 03/18/2020 7:35 EDT [facility] Blood VENOUS BLOOD / Unknown Venipuncture / Unknown 03/18/2020 6:55 EDT 03/18/2020 7:04 EDT [facility] NP CHEMISTRY & BLOOD GA S ORDERABLES Performing Organization Address City/[facility]/ZIP Co de Phone Number [facility] [address] [place] [address] * BACTERIAL CULTURE, BLOOD (03/17/2020 18:20 EDT) Organism ID No Growth at 5 days 03/22/2020 19:15 EDT [facility] Blood VENOUS BLOOD / Unknown Blood Culture / Unknown 03/17/2020 18:20 EDT 03/17/2020 19:10 EDT Jaguar Liang MD MICROBIOLOGY - GENER AL ORDERABLES Performing Organization Address [facility] Co de Phone Number [facility] [address] [place] [address] * BACTERIAL CULTURE, BLOOD (03/17/2020 18:13 EDT) Organism ID No Growth at 5 days 03/22/2020 19:15 EDT [facility] Blood VENOUS BLOOD / Unknown Blood Culture / Unknown 03/17/2020 18:13 EDT 03/17/2020 19:10 EDT Jaguar Liang MD MICROBIOLOGY - GENER AL ORDERABLES Performing Organization Address [facility]/ZIP Co de Phone Number [facility] [address] [place] [id number] * BACTERIAL CULTURE, URINE (03/17/2020 17:59 EDT) Organism ID No Growth 03/19/2020 8:17 EDT [facility] Urine URINE SPECIMEN OBTAINED BY SINGLE CATHETERIZATION OF URINARY BLADDER / Unknown Urine Collect / Unknown 03/17/2020 17:59 EDT 03/17/2020 18:35 EDT Jaguar Liang MD MICROBIOLOGY - GENER AL ORDERABLES Performing Organization Address [facility]/ZIP Co de Phone Number [facility] [address] [place] [address] * (ABNORMAL) URINE CHEMICAL (DIP) & SEDIMENT (MICRO) WITH REFLEX TO CULTURE (03/17/2020 17:59 EDT) Color UA Yellow Colorless, Yellow 03/17/2020 18:35 [facility] Clarity UA Clear Clear 03/17/2020 18:35 [facility] Glucose UA Negative Negative 03/17/2020 18:35 [facility] Bilirubin UA Negative Negative 03/17/2020 18:35 [facility] Ketones UA 1+(A) Negative 03/17/2020 18:35 [facility] Specific [place], Urine 1.028 1.001 - 1.035 03/17/2020 18:35 [facility] Blood UA 3+(A) Negative 03/17/2020 18:35 [facility] Urobilinogen UA Normal Normal mg/dL 020 18:35 [facility] Nitrite UA Negative Negative 03/17/2020 18:35 [facility] Leukocyte Esterase UA 2+(A) Negative 03/17/2020 18:35 [facility] Protein UA 2+(A) Negative 03/17/2020 18:35 [facility] pH, UA 6.0 4.6 - 8.0 03/17/2020 18:35 [facility] Urine RBC Count, Auto >50(A) 0 - 2 Cells/HPF 03/17/2020 18:35 [facility] Urine WBC Count, Auto >50(A) 0 - 3 Cells/HPF 03/17/2020 18:35 [facility] Urine Squamous Count, Auto None Seen None Seen Cells/HPF 03/17/2020 18:35 [facility] Urine Hyaline Cast Count, Auto <=10 <=10 Casts/LPF 03/17/2020 18:35 [facility] Urine Bacteria Count, Auto None Seen None Seen Bacteria/HPF 03/17/2020 18:35 [facility] Urine URINE SPECIMEN OBTAINED BY SINGLE CATHETERIZATION OF URINARY BLADDER / Unknown Urine Collect / Unknown 03/17/2020 17:59 EDT 03/17/2020 18:05 EDT Narrative [facility] - 03/17/2020 18:35 EDT A Urine Culture test has been reflexively ordered based on result criteria from the Urine Sediment Analysis. Urine Sediment Analysis results are unreliable on urines that are unrefrigerated for >2 hrs or refrigerated >8 hrs. Jaguar Liang MD URINALYSIS ORDERABLE S [facility] [address] [place] [address] * SURGICAL PATHOLOGY (03/17/2020 10:30 EDT) Final Diagnosis A. 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 - Negative for dysplasia and malignancy. - Surgical resection margins viable. 03/22/2020 15:14 [facility] at 1514 Attestation There was significant resident/fellow involvement in the diagnostic evaluation of this case. By the signature below, the attending physician certifies that they have personally conducted a gross and/or microscopic examination of the described specimens and rendered or confirmed the above diagnosis. 03/22/2020 15:14 [facility] at 1514 Clinical History Colovesical fistula; diverticulitis 03/22/2020 15:14 [facility] Gross Description A. Received in [...] surrounding mesentery reveals lobulated, yellow cut surfaces. Pbx Technician sections are submitted as follows: BLOCK HENSON A1- stapled margin, en face A2-A3- open margin, bisected, en face A4-A7- sections of diverticula A8- section of separate [place] Jonesuc 03/18/2020 8:05 03/22/2020 15:14 EDT [facility] Resident/Vish w: Chance Crouch MD 03/22/2020 15:14 EDT [facility] Scanned Images 03/22/2020 15:14 EDT [facility] Tissue ENTIRE SIGMOID COLON / Unknown 03/17/2020 10:30 EDT 03/17/2020 16:33 EDT Sara Mendez MD PATHOLOGY ORDERABLES [facility] [address] [place] [address] documented in this encounter Visit Diagnoses Diagnosis Colovesical fistula- Primary Intestinovesical fistula Colovesical fistula Intestinovesical fistula Diverticulitis Diverticulitis of colon (without mention of hemorrhage) Colovesical fistula Intestinovesical fistula Diverticulitis Diverticulitis of [...] Tuyet 03/17/20 at 1415, Until Discontinued, Routine Given 03/25/2020 20:19 EDT 1,000 mg Given 03/25/2020 13:50 EDT 1,000 mg Given 03/25/2020 6:39 EDT 1,000 mg bupivacaine-EPINEPHrine (PF) 0.5 %-1:200,000 injection As needed, Starting on Tuyet 03/17/20 at 0953, Until Tuyet 03/17/20 at 0956, Routine, Intraprocedure Given 03/17/2020 9:53 EDT 10 mL enoxaparin (LOVENOX) injection 40 mg 40 mg, subcutaneous, AT BEDTIME, First dose on Sat03/18/20 at 2100, Until Discontinued, Routine Given 03/25/2020 20:19 EDT 40 mg Given 03/24/2020 20:39 EDT 40 mg Given 03/23/2020 20:21 EDT 40 mg ondansetron (PF) (ZOFRAN) injection 4 mg 4 mg, intravenous, EVERY 4 HOURS PRN, Starting on 03/20/20 at 0817, Until 03/26/20 at 1410, Nausea, Routine Given 03/20/2020 10:18 EDT 4 mg pantoprazole (PROTONIX) tablet 40 mg 40 mg, oral, DAILY, First dose on 03/26/20 at 0900, Until Discontinued, Routine Given 03/26/2020 8:38 EDT 40 mg sodium chloride 0.9 % (flush) flush 3 mL 3 mL, intravenous, PRN, Starting on Sat03/18/20 at 0800, Until 03/26/20 at 1410, Line Care, Routine sodium chloride 0.9 % irrigation As needed, Starting on Tuyet 03/17/20 at 0953, Until Tuyet 03/17/20 at 0956, Routine, Intraprocedure Given 03/17/2020 9:53 EDT 1,000 mL tamsulosin (FLOMAX) capsule 0.4 mg 0.4 mg, oral, DAILY, First dose on Sat03/18/20 at 0900, Until Discontinued, Routine Given 03/26/2020 8:38 EDT 0. 4 mg Given 03/25/2020 9:53 EDT 0.4 mg [...] Minutes, NOW X1, 1 dose, On Tuyet 03/24/20 at 0945, Routine 1112 (Given - Provider: Moises Dent RN) enoxaparin (LOVENOX) injection 40 mg 40 mg, subcutaneous, AT BEDTIME, First dose on Sat03/18/20 at 2100, Until Discontinued, Routine 2038 (Given - Provider: Thania Nowak RN) 2019 (Given - Provider: Natasha Baldwin RN) pantoprazole (PROTONIX) injection 40 mg (CANCELED) 40 mg, intravenous, DAILY, First dose on Sat03/18/20 at 1215, Until Discontinued, Routine 1008 (Given - Provider: Moises Dent, VIVEK) 0953 (Given - Provider: Rosalina Corona, VIVEK) pantoprazole (PROTONIX) tablet 40 mg 40 mg, oral, DAILY, First dose on 03/26/20 at 0900, Until Discontinued, Routine 0838 (Given - Provider: Rosalina Corona, VIVEK) potassium chloride in water infusion 10 mEq (COMPLETED) 10 mEq, intravenous, NOW X1, 1 dose, On Tuyet 03/24/20 at 0945, Routine 1220 (Given - Provider: Moises Dent, VIVEK) tamsulosin (FLOMAX) capsule 0.4 mg 0.4 mg, oral, DAILY, First dose on Sat03/18/20 at 0900, Until Discontinued, Routine 1008 (Given - Provider: Moiess Dent RN) 0953 (Given - Provider: Rosalina Corona, VIVEK) 0838 (Given - Provider: Rosalina Corona RN) Continuous Medication Order 03/24/2020 03/25/2020 03/26/2020 electrolyte-A (PLASMALYTE-A) solution (CANCELED) at 100 mL/hr, intravenous, CONTINUOUS, Starting on Tuyet 03/17/20 at 1315, Until Tuyet 03/24/20 at 1718, Routine 0719 (Rate Documented - [...] Count Last Ordered Date First Ordered Date pantoprazole (PROTONIX) tablet 40 mg 1 02/27 calcium gluconate 1,000 mg i n dextrose 5% (D5W) 50 mL IVPB 1 03/24/2020 calcium gluconate 2,000 mg i n dextrose 5% (D5W) 50 mL IVPB 2 03/24/2020 03/18/2020 melatonin tablet 5 mg 1 03/24/2020 potassium chloride in water infusion 10 mEq 1 03/24/2020 potassium chloride in water infusion 20 mEq 1 03/23/2020 diatrizoate meglumine (HYPAQ UE) 30 % solution 300 mL 1 03/22/2020 ondansetron (PF) (ZOFRAN) injection 4 mg 3 03/20/2020 03/17/2020 pantoprazole (PROTONIX) injection 40 mg 1 0 03/18/2020 prochlorperazine edisylate ( COMPAZINE) injection 10 mg 1 03/18/2020 scopolamine (TRANSDERM-SCOP) 1 mg over 3 days patch 1 Patch 1 03/18/2020 acetaminophen (TYLENOL) tablet 1,000 mg 2 0 03/17/2020 atropine 0.1 mg/mL syringe 0.5 mg 1 020 ceFAZolin (ANCEF) syringe 2 g 1 03/17/2020 cefTRIAXone (ROCEPHIN) 2,000 mg in sodium chloride (NS MBP) 50 mL IVPB 1 03/17/2020 chlorhexidine gluconate 2 % cloth 1 Each 1 03/17/2020 dexaMETHasone (DECADRON) injection 8 mg 1 0 03/17/2020 docusate sodium (COLACE) capsule 100 mg 1 0 03/17/2020 electrolyte-A (PLASMALYTE-A) solution 1 enoxaparin (LOVENOX) injection 40 mg 1 02/26 fentaNYL citrate (PF) injection 25-50 mcg 1 03/17/2020 gabapentin (NEURONTIN) capsule 900 mg 1 granisetron HCL (KYTRIL) injection 1 mg 1 0 03/17/2020 heparin injection 5,000 Units 1 03/17/2020 lactated ringers (LR) infusion 2 03/17/2020 lidocaine (PF) 10 mg/mL (1 % ) injection 2 mg 1 03/17/2020 metronidazole (FLAGYL) infusion 500 mg 2 morphine injection 1-2 mg 1 03/17/2020 nalbuphine (NUBAIN) injection 2.5 mg 1 02/26 naloxone (NARCAN) injection 0.1 mg 1 2019 naloxone (NARCAN) injection 0.2 mg 1 2019 oxyCODONE (ROXICODONE) immed iate release tablet 5-10 mg 2 03/17/2020 polyethylene glycol 3350 (ID RALAX) packet 17 g 1 03/17/2020 sodium chloride 0.9 % (flush) flush 3 mL 1 03/17/2020 tamsulosin (FLOMAX) capsule 0.4 mg 1 2019 Diet Count Last Ordered Date First Orde [...] 02/26 documented in this encounter Care Teams Compliance Advisor Relationship Specialty Start Date End Date Kylie Og[place] [address] [place] [address] PCP - General Internal Medicine - Primary Care 12/15/19 documented as of this encounter
--- OUTSIDE RECORDS SUMMARY | 2024-05-18 13:19 | XMS_ITS | Encounter Summary ---
Author Organization [facility] Address [address] [place] [address] Care Team Providers Care Tiler Name Role Phone Kylie Oglesby Primary Care Provider [phone] Encounter Details Date Type Department Care Team (Late st Contact Info) Description 03/09/2020 Orders Only [facility] General Surgery - [facility] [address], [place] [id number] Sara Mendez MD [address] [facility], [address] [place] [address] Encounter for laboratory testing for COVID-19 virus (Primary Dx) Social History Tobacco Use Types [...] as of this encounter Visit Diagnoses Diagnosis Encounter for laboratory testing for COVID-19 virus- Primary documented in this encounter Care Teams Tiler Relationship Specialty Start Date End Date Kylie Oglesby [address] [place] [address] PCP - General Internal Medicine - Primary Care 12/15/19 documented as of this encounter
--- OUTSIDE RECORDS SUMMARY | 2024-05-18 13:19 | XMS_ITS | Encounter Summary ---
Author Organization [facility] Address [address] [place] [address] Care Team Providers Care Trailer Driver Name Role Phone Kylie Oglesby Primary Care Provider Encounter Details Date Type Department Care Team (Latest Contact Info) Description 03/14/2020 Travel Social History Tobacco Use Types Packs/Day [...] have Coronavirus / COVID-19? No / Unsure 03/14/2020 15:43 EDT documented as of this encounter Plan of Treatment Not on file documented as of this encounter Visit Diagnoses Not on filedocumented in this encounter Care Teams Trailer Driver Relationship Specialty Start Date End Date Kylie Oglesby [address] [place] [address] PCP - General Internal Medicine - Primary Care 12/15/19 documented as of this encounter
--- OUTSIDE RECORDS SUMMARY | 2024-05-18 13:19 | XMS_ITS | Encounter Summary ---
Author Organization [facility] Address [address] [place] [address] Care Team Providers Care Prepress Supervisor Name Role Phone Unknown, Provider Primary Care Provider Encounter Details Date Type Department Care Team (Late st Contact Info) Description 12/14/2019 Results Only [facility] Urology - Medical Office Building [address] [place] [address], [address] [place], [place] [address] Cathryn Monzon NP [address] [place] [phone] Social History Tobacco Use Types Packs/Day Years Used Date Smoking Tobacco: Never Smokeless Tobacco: Never Sex and Gender Information Value Date Recorded Sex Assigned at Not on file Gender Identity Male 11/28/2019 13:59 EST Sexual Orientation Not on file documented as of this encounter Plan of Treatment Not on file documented as of this encounter Procedures Procedure Name Priority Date/Time Associated Diagnosis Comments BASIC METABOLIC PANEL (BMP) Routine 12/14/2019 15:17 EST documented in this encounter Results * BASIC METABOLIC PANEL (BMP) (12/14/2019 15:17 EST) BUN - [facility] 16 10 - 26 mg/dL 12/14/2019 15:45 EST [facility] CALCIUM - [facility] 9.5 8.5 - 10.5 mg/dL 12/14/2019 15:45 EST [facility] Chloride 104 96 - 110 mmol/L 12/14/2019 15:45 [facility] CO2 Total 26 21 - 32 mEq/L 12/14/2019 15:45 [facility] CREATININE 0.83 0.66 - 1.25 mg/dL 12/14/2019 15:45 [facility] eGFR >60 12/14/2019 15:45 [facility] Comment: Chronic renal impairment is defined as GFR <60 Multiply result by 1.210 for patients. Anion Gap 9 0 - 18 12/14/2019 15:45 [facility] GLUCOSE - [facility] 81 70 - 100 mg/dL 12/14/2019 15:45 [facility] Potassium 4.5 3.5 - 5.0 mEq/L 12/14/2019 15:45 [facility] Sodium 139 136 - 145 mEq/L 12/14/2019 15:45 [facility] 12/14/2019 15:1 7 EST 12/14/2019 15:17 EST Cathryn Monzon NP CHEMISTRY & BLOOD G ORDERABLES [facility] documented in this encounter Visit Diagnoses Not on filedocumented in this encounter Care Teams Prepress Supervisor Relationship Specialty Start Date End Date Unknown, Provider, PCP - General 10/15/16 12/14/19 documented as of this encounter
--- OUTSIDE RECORDS SUMMARY | 2024-05-18 13:19 | XMS_ITS | Encounter Summary ---
Author Organization [facility] Address [address] [place] [address] Care Team Providers Care Irrigator Name Role Phone Kylie Oglesby Primary Care Provider [phone] Reason for Visit * Reason Onset Date Comments Labs Only 03/14/2020 Encounter Details Date Type Department Care Team (Late st Contact Info) Description 03/14/2020 Telephone [facility] [address] [place], [place] [id number] Sara Mendez MD [address] [facility], [address] [place] [address] Labs Only Social History Tobacco Use Types [...] 6:49 EDT documented as of this encounter Miscellaneous Notes * Telephone Encounter - Tiff Guevara - 03/14/2020 1348 EDT There is a plan for sigmoid colectomy with takedown of colovesicular fistula and possible small bowel resection Calling to let nurse know he had the Covid-[address] [facility] today at 1 pm. documented in this encounter Plan of Treatment Not on file documented as of this encounter Visit Diagnoses Not on filedocumented in this encounter Care Teams Irrigator Relationship Specialty Start Date End Date Kylie Oglesby [address] [place] [address] PCP - General Internal Medicine - Primary Care 12/15/19 documented as of this encounter
--- OUTSIDE RECORDS SUMMARY | 2024-05-18 13:19 | XMS_ITS | Encounter Summary ---
Author Organization [facility] Address [address] [place] [address] Care Team Providers Care Systems Mechanic Name Role Phone Unknown, Provider Primary Care Provider Encounter Details Date Type Department Care Team (Late st Contact Info) Description 10/15/2016 Results Only [facility] [phone] Thania Vasquez MD [address] [place] [phone] Social History Tobacco Use Types Packs/Day Years Used Date Smoking Tobacco: Never Assessed Sex and Gender Information Value Date Recorded Sex Assigned at Not on file Gender Identity Male 11/28/2019 13:59 EST Sexual Orientation Not on file documented as of this encounter Plan of Treatment Not on file documented as of this encounter Procedures Procedure Name Priority Date/Time Associated Diagnosis Comments CYTOPATHOLOGY Routine 10/15/2016 0:00 EST documented in this encounter Results * CYTOPATHOLOGY (10/15/2016 0:00 EST) Pathology Report: CYTOPATHOLOGY REPORT Reports generated via electronic interface contain original data; however they are lacking the format of the original report. Caution should be taken when reading/interpreti ng unformatted reports. Name: ? TRENTON RUBIO ? Accession #: ? [id number] : ? 1940 (Age: 76) ??M ?Collect Date: ? 10/15/2016 Location: ? [facility] ? Receive Date: ? 10/16/2016 Provider: ? THANIA VASQUEZ MD Copy to: ? CYTOLOGIC DIAGNOSIS: URINE CATHETERIZED, CYTOLOGIC EVALUATION: - Negative for malignant cells. - Groups of reactive urothelial cells present, consistent with instrumentation effect. - Background of mixed inflammatory cells. Document reviewed and electronically signed by: ? DAX TOVAR MD Report Date: ??10/17/2016 09:11 By the signature above, the attending physician certifies that he/she has personally conducted a gross and/or microscopic examination of the described specimens and rendered or confirmed the above diagnosis. Specimen Type: ? Urine, Catheterized Clinical History: ? Hematuria. clinical diagnosis code: ??R31.9. ? Gross Description: ? 30ccs of clear yellow fluid (etoh added) were received and processed by selective cellular enhancement technique. ? End of Report [facility] 10/15/2016 10/16/2016 8:4 3 EST Thania Vasquez MD PATHOLOGY ORDERABLE S [facility] [address] [place] [address] documented in this encounter Visit Diagnoses Not on filedocumented in this encounter Care Teams Systems Mechanic Relationship Specialty Start Date End Date Unknown, Provider, PCP - General 10/15/16 12/14/19 documented as of this encounter
--- OUTSIDE RECORDS SUMMARY | 2024-05-18 13:19 | XMS_ITS | Encounter Summary ---
Author Organization [facility] Address [address] [place] [address] Care Team Providers Care Data Center Technician Name Role Phone Unknown, Provider Primary Care Provider [phone] Kylie Oglesby Primary Care Provider [phone] Encounter Details Date Type Department Care Team (Late st Contact Info) Description 12/14/2019 Results Only Imaging [facility] Radiology Results [address] [place], [place] [address] Cathryn Monzon, VACUUM PAN OPERATOR [address] [place] [address] Social History Tobacco Use Types Packs/Day [...] Name Priority Date/Time Associated Diagnosis Comments CT ABDOMEN PELVIS W CONTRAST 12/14/2019 18:39 EST documented in this encounter Results * CT ABDOMEN PELVIS W CONTRAST (12/14/2019 18:39 EST) Anatomical Region Laterality Modality Computed Tomogra phy 12/14/2019 18:3 9 EST Narrative 12/14/2019 18:39 EST ? EXAM: CAT SCAN/ABDOMEN PELVIS WITH CONTRA EX. D/ (6102) ? CLINICAL INFORMATION: ? R39.9 RECURRENT UTI's, R39.89 PNEUMATURIA ? CONCERN FOR COLOVESICULAR FISTULA ? PROCEDURE INFORMATION: ? Exam: CT Abdomen And Pelvis With Contrast ? Exam date and time: 12/14/2019 5:59 PM ? Age: 79 years old ? Clinical indication: Pain; Other: R39.9 recurrent uti's, r39.89 ? pneumaturia, 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; Prior surgery; ? Surgery type: Appi ? TECHNIQUE: ? Imaging protocol: Computed tomography of the abdomen and pelvis ? with intravenous contrast. ? Radiation optimization: All CT scans at this facility use at ? least one of these dose optimization techniques: automated ? exposure control; mA and/or kV adjustment per patient size ? (includes targeted exams where dose is matched to clinical ? indication); or iterative reconstruction. ? Contrast material: OMNIPAUE; Contrast volume: 100 ml; Contrast ? route: IV; ? COMPARISON: ? No relevant prior studies available. ? FINDINGS: ? Lungs: 7 mm lingular pulmonary nodule. 6 mm left lower lobe ? pulmonary nodule. 7 mm right middle lobe pulmonary nodule. ? Mediastinum: Small hiatal hernia. ? Liver: Hepatic steatosis. ? Gallbladder and bile ducts: Normal. No calcified stones. No ? ductal dilation. ? Pancreas: Normal. No ductal dilation. ? Spleen: Normal. No splenomegaly. ? Adrenals: Normal. No mass. ? Kidneys and ureters: Right renal midpole cyst measuring 3.8 x ? 4.3 cm. Additional smaller bilateral renal cysts. No ? hydronephrosis. ? Stomach and bowel: Stool is scattered throughout the colon. ? Sigmoid diverticulosis. Mild thickening of the mid sigmoid ? colon. No evidence of adjacent inflammation. Potential tiny ? colovesical fistula. Rectal tube is present. ? Appendix: No evidence of appendicitis. ? Intraperitoneal space: Unremarkable. No free air. No significant ? fluid collection. ? Vasculature: Aortic atherosclerotic disease without evidence of ? aneurysm. ? Lymph nodes: Unremarkable. No enlarged lymph nodes. ? Bladder: Air is noted within the bladder. Bladder wall ? thickening. ? Reproductive: Unremarkable as visualized. ? Bones/joints: Moderate degenerative changs of the lumbar spine. ? Moderate compression fracture of the T12. Mild L4 compression ? PAGE 1 ? Signed Report ? (CONTINUED) ? fracture. ? Soft tissues: Bilateral uncomplicated fat containing inguinal ? hernias. ? IMPRESSION: ? 1. Hepatic steatosis. ? 2. Stool is scattered throughout the colon. ??Sigmoid ? diverticulosis. Mild thickening of the midsigmoid colon may be ? related to chronic diverticulitis. However, colonic mass is not ? excluded. ? 3. Bilateral uncomplicated fat containing inguinal hernias. ? 4. Air is noted within the bladder. Bladder wall thickening may ? represent acute cystitis. ? 5. Potential tiny colovesical fistula. ? 6. 7 mm lingular pulmonary nodule. 6 mm left lower lobe ? pulmonary nodule. 7 mm right middle lobe pulmonary nodule. For ? patients at low risk (minimal or absent history of smoking and ? of other known risk factors), recommend CT at 3-6 months, then ? consider CT at 18-24 months. For patients at high risk (history ? of smoking or of other known risk factors), recommend CT at 3-6 ? months, then CT at 18-24 months. (Apolonia et al., Radha ? Society, 2017) ? REPORT SIGNED IN OTHER VENDOR SYSTEM 12/14/2019 ?Reported By: Tessa Avalos MD ? CC: ? Transcribed Date/Time: 12/14/2019 (1838) ? Marketing Content Manager: AD ? Printed Date/Time: 12/14/2019 (1838) ? PAGE 2 ? Signed Report ? Procedure Note Tessa Avalos MD - 12/14/2019 EXAM: CAT SCAN/ABDOMEN PELVIS WITH CONTRA EX. D/ (1759) CLINICAL INFORMATION: R39.9 RECURRENT UTI's, R39.89 PNEUMATURIA CONCERN FOR COLOVESICULAR FISTULA PROCEDURE INFORMATION: Exam: CT Abdomen And Pelvis With Contrast Exam date and time: 12/14/2019 5:59 PM Age: 79 years old Clinical indication: Pain; Other: R39.9 recurrent uti's, r39.89 pneumaturia, 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; Prior surgery; Surgery type: Appi TECHNIQUE: Imaging protocol: Computed tomography of the abdomen and pelvis with intravenous contrast. Radiation optimization: All CT scans at this facility use at least one of these dose optimization techniques: automated exposure control; mA and/or kV adjustment per patient size (includes targeted exams where dose is matched to clinical indication); or iterative reconstruction. Contrast material: OMNIPAUE; Contrast volume: 100 ml; Contrast route: IV; COMPARISON: No relevant prior studies available. FINDINGS: Lungs: 7 mm lingular pulmonary nodule. 6 mm left lower lobe pulmonary nodule. 7 mm right middle lobe pulmonary nodule. Mediastinum: Small hiatal hernia. Liver: Hepatic steatosis. Gallbladder and bile ducts: Normal. No calcified stones. No ductal dilation. Pancreas: Normal. No ductal dilation. Spleen: Normal. No splenomegaly. Adrenals: Normal. No mass. Kidneys and ureters: Right renal midpole cyst measuring 3.8 x 4.3 cm. Additional smaller bilateral renal cysts. No hydronephrosis. Stomach and bowel: Stool is scattered throughout the colon. Sigmoid diverticulosis. Mild thickening of the mid sigmoid colon. No evidence of adjacent inflammation. Potential tiny colovesical fistula. Rectal tube is present. Appendix: No evidence of appendicitis. Intraperitoneal space: Unremarkable. No free air. No significant fluid collection. Vasculature: Aortic atherosclerotic disease without evidence of aneurysm. Lymph nodes: Unremarkable. No enlarged lymph nodes. Bladder: Air is noted within the bladder. Bladder wall thickening. Reproductive: Unremarkable as visualized. Bones/joints: Moderate degenerative changs of the lumbar spine. Moderate compression fracture of the T12. Mild L4 compression PAGE 1 Signed Report (CONTINUED) fracture. Soft tissues: Bilateral uncomplicated fat containing inguinal hernias. IMPRESSION: 1. Hepatic steatosis. 2. Stool is scattered throughout the colon. Sigmoid diverticulosis. Mild thickening of the midsigmoid colon may be related to chronic diverticulitis. However, colonic mass is not excluded. 3. Bilateral uncomplicated fat containing inguinal hernias. 4. Air is noted within the bladder. Bladder wall thickening may represent acute cystitis. 5. Potential tiny colovesical fistula. 6. 7 mm lingular pulmonary nodule. 6 mm left lower lobe pulmonary nodule. 7 mm right middle lobe pulmonary nodule. For patients at low risk (minimal or absent history of smoking and of other known risk factors), recommend CT at 3-6 months, then consider CT at 18-24 months. For patients at high risk (history of smoking or of other known risk factors), recommend CT at 3-6 months, then CT at 18-24 months. (Apolonia et al., Fleischner Society, 2017) REPORT SIGNED IN OTHER VENDOR SYSTEM 12/14/2019 Reported By: Tessa Avalos MD CC: Transcribed Date/Time: 12/14/2019 (1838) Marketing Content Manager: Printed Date/Time: 12/14/2019 (1838) PAGE 2 Signed Report Cathryn Monzon NP IMG CT ORDERABLES documented in this encounter Visit Diagnoses Not on filedocumented in this encounter Care Teams Data Center Technician Relationship Specialty Start Date End Date Unknown, Provider, PCP - General 10/15/16 12/14/19 Kylie Oglesby [address] [place] [address] PCP - General Internal Medicine - Primary Care 12/15/19 documented as of this encounter
--- OUTSIDE RECORDS SUMMARY | 2024-05-18 13:19 | XMS_ITS | Encounter Summary ---
Author Organization [facility] Address [address] [place] [address] Care Team Providers Care Gm Mobile Name Role Phone Kylie Oglesby Primary Care Provider [phone] Encounter Details Date Type Department Care Team (Latest Contact Info) Description 03/03/2020 11:30 EDT - 03/04/2020 23:59 EDT Hospital Encounter [facility] Pre-Surgical Testing [address] [place], [place] [address] Discharge Disposition: Home or Self Care Social [...] 15:48 EDT documented as of this encounter Last Filed Vital Signs Vital Sign Reading Time Taken Comments Blood Pressure - - Pulse - - Temperature - - Respiratory Rate - - Oxygen Saturation - - Inhaled Oxygen Concentration - - Weight 102.1 kg (225 lb) 03/03/2020 1130 EDT Height 193 cm (6' 4) 03/03/2020 1130 EDT Body Mass Index 27.39 03/03/2020 1130 EDT documented in this encounter Medications at Time of Discharge Medication Sig Dispensed Refills Start Date End Date acetaminophen (TYLENOL) 325 mg tablet Take 1-2 Tabs by mouth every 4 hours as needed for Pain. 03/25/2020 tamsulosin (FLOMAX) 0.4 mg capsule Take by mouth daily. 11/17/2019 bisacodyL (DULCOLAX) 5 mg EC tablet Patient to take as directed day before surgery. 2 Tab 03/01/2020 03/17/2020 chlorhexidine gluconate 4 % (E-Z SCRUB 107) sponge Use as directed in pre-op showering instructions. 2 Each 03/01/2020 03/17/2020 metroNIDAZOLE (FLAGYL) 500 mg tablet Patient to take one tablet at 3 PM, 4 PM and 10 PM day before surgery. 3 Tab 03/01/2020 03/17/2020 neomycin 500 mg tablet Patient to take 2 tablets at 3 PM, 4 PM and 10 PM day before surgery. 6 Tab 03/01/2020 03/17/2020 pantoprazole (PROTONIX) 40 mg tablet Take 1 Tab by mouth daily for 90 days. 90 Tab 03/27/2020 06/25/2020 polyethylene glycol (GOLYTELY) 236-22.74-6.74 -5.86 gram suspension Patient to follow one time directions as directed by Dr Mendez office for surgery prep 1 Bottle 03/01/2020 03/17/2020 documented as of this encounter Discharge Disposition Disposition Code Departure Means Destination Home or Self Care documented in this encounter OR Notes * Preprocedure Instructions - Fabby Garcia, RN - 03/03/2020 1207 EDT Jasbir Kate has been instructed as follows regarding medication administration for the day of the scheduled procedure. Date of Surgery: 03/17/2020 Instructions for Taking Medications Day of Surgery Medication Sig Last Dose Hold DOS Take DOS bisacodyL (DULCOLAX) 5 mg EC tablet Patient to take as directed day before surgery. Pre-op med x chlorhexidine gluconate 4 % (E-Z SCRUB 107) sponge Use as directed in pre-op showering instructions. Yes metroNIDAZOLE (FLAGYL) 500 mg tablet Patient to take one tablet at 3 PM, 4 PM and 10 PM day before surgery. Pre-op med x neomycin 500 mg tablet Patient to take 2 tablets at 3 PM, 4 PM and 10 PM day before surgery. Pre-opmed x polyethylene glycol (GOLYTELY) 236-22.74-6.74 -5.86 gram suspension Patient to follow one time directions as directed by Dr Mendez office for surgery prep Pre- op med x tamsulosin (FLOMAX) 0.4 mg capsule Take by mouth daily. Yes documented in this encounter Miscellaneous Notes * PAT Note - Fabby Garcia RN - 03/03/2020 1208 EDT COVID 19 Screening Perioperative at time of [...] instruct them to call us back at [phone] to report symptoms If the patient answers [...] will be allowed into Preop, OR, or JOSEPH GARCIA RN documented in this encounter Plan of Treatment Not on file documented as of this encounter Visit Diagnoses Not on filedocumented in this encounter Discontinued Medications Medication Sig Discontinue Reason Start Date End Da te cephALEXin (KEFLEX) 500 mg capsule TK 1 C PO TID 11/20/2019 03/03/2020 nitrofurantoin (MACRODANTIN) 50 mg capsule Take 1 Cap by mouth at bedtime. Start the day after completing your full course of treatment 12/01/2019 03/03/2020 nitrofurantoin, macrocrystal-monohydra te, (MACROBID) 100 mg capsule Take 1 Cap by mouth 2 times daily. 12/01/2019 03/03/2020 documented as of this encounter Care Teams Gm Mobile Relationship Specialty Start Date End Date Kylie Oglesby [address] [place] [address] PCP - General Internal Medicine - Primary Care 12/15/19 documented as of this encounter
--- OUTSIDE RECORDS SUMMARY | 2024-05-18 13:19 | XMS_ITS | Encounter Summary ---
Author Organization [facility] Address [address] [place] [address] Care Team Providers Care Plate Hanger Name Role Phone Unknown, Provider Primary Care Provider Encounter Details Date Type Department Care Team (Late st Contact Info) Description 12/08/2019 Orders Only [facility] [address] [place] [address] Cathryn Monzon NP [address] [place] [address] Frequent UTI (Primary Dx) Social History Tobacco Use Types Packs/Day Years Used Date Smoking Tobacco: Never Smokeless Tobacco: Never Sex and Gender Information Value Date Recorded Sex Assigned at Not on file Gender Identity Male 11/28/2019 13:59 EST Sexual Orientation Not on file documented as of this encounter Progress Notes * Brianda Mckinney - 12/08/2019 1259 EST Needs a creatinine for upcoming CT Scan he will go have drawn documented in this encounter Plan of Treatment Not on file documented as of this encounter Results * BASIC METABOLIC PANEL (BMP) (03/01/2020 15:57 EDT) Sodium 140 136 - 145 mEq/L 03/01/2020 16:59 EDT [facility] Potassium 4.5 3.5 - 5.0 mEq/L 03/01/2020 16:59 EDT [facility] Chloride 104 96 - 110 mEq/L 03/01/2020 16:59 EDT [facility] CO2 Total 27 22 - 32 mEq/L 03/01/2020 16:59 EDT [facility] Glucose 86 70 - 100 mg/dL 03/01/2020 16:59 EDT [facility] Calcium 9.9 8.5 - 10.5 mg/dL 03/01/2020 16:59 EDT [facility] Calculated Calcium 9.6 8.5 - 10.5 mg/dL 03/01/2020 16:59 EDT [facility] BUN 15 10 - 26 mg/dL 03/01/2020 16:59 T [facility] Creatinine 0.85 0.66 - 1.25 mg/dL 03/01/2020 16:59 EDT [facility] eGFR 83 >60 mL/min/1.7 3m2 03/01/2020 16:59 T [facility] Comment:eGFR calculated ernesto cee CKD-EPI equation for non- Americans. Multiply eGFR by 1.16 for patients. Blood VENOUS BLOOD / Unknown Venipuncture / Unknown 03/01/2020 15:57 EDT 03/01/2020 16:26 EDT Cathryn Monzon NP CHEMISTRY & BLOOD G ORDERABLES Performing Organization Address City/State/[facility] Co de Phone Number [facility] [address] [place] [address] documented in this encounter Visit Diagnoses Diagnosis Frequent UTI- Primary Urinary tract infection, site not specified documented in this encounter Care Teams Plate Hanger Relationship Specialty Start Date End Date Unknown, Provider, PCP - General 10/15/16 12/14/19 documented as of this encounter
--- OUTSIDE RECORDS SUMMARY | 2024-05-18 13:19 | XMS_ITS | Encounter Summary ---
Author Organization [facility] Address [address] [place] [address] Care Team Providers Care Chief Operator Lock Tender Name Role Phone Kylie Oglesby Primary Care Provider [phone] Reason for Visit * Reason Comments Post-OP Follow Up Encounter Details Date Type Department Care Team (Late st Contact Info) Description 03/01/2020 14:00 EDT Office Visit [facility] General Surgery - [facility] [address], [place] [address] Sara Mendez MD [address] [facility], [address] [place] [address] Diverticulitis of large intestine with abscess, unspecified bleeding status (Primary Dx) Social History Tobacco Use Types [...] Sign Reading Time Taken Comments Blood Pressure 130/78 03/01/2020 1349 EDT Pulse 89 03/01/2020 1349 EDT Temperature - - Respiratory Rate - - Oxygen Saturation - - Inhaled Oxygen Concentration - - Weight 105.7 kg (233 lb) 03/01/2020 1349 EDT Height 193 cm (6' 4) 03/01/2020 1349 EDT Body Mass Index 28.36 03/01/2020 1349 EDT documented in this encounter Progress Notes * Sara Mendez MD - 03/01/2020 1400 EDT Colorectal Surgery ?? Chief Complaint: colovesicular [...] been seen by the urology department at [facility] with Cathryn Monzon. She did a CT [...] 25 years ago but has about a 25-ltbr-aizr history. drinks wine daily. 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 He goes to the gym 3 times a week and either sits on the bike or the elliptical machine. He denies any chest pain with exertion, but does have some shortness of breath ifhe walks out 2 flights of stairs ?? Colonoscopy was about 2 to 3 years ago at [facility]. He states it was normal. He [...] resection. Explained that patient will keep a Bautista catheter afterwards for 3 to 5 days [...] be a good candidate for intrathecal morphine. * Sergei Byers RN - 03/01/2020 1400 EDT Patient Education Topic: SSI Method: Handout and Verbal Taught to: Patient Barriers: None Outcomes: verbalized understanding Signature: SERGEI BYERS RN I reviewed full prep SSI with Jasbir. I will send the prescriptions to the [facility] in [place]. I was supervised by Dr Mendez who was present and immediately available in the office suite. SERGEI BYERS RN 03/01/2020 15:31 documented in this encounter Plan of Treatment Not on file documented as of this encounter Results * (ABNORMAL) COMPLETE BLOOD COUNT (03/01/2020 15:57 EDT) WBC 10.53(H) 4.00 - 10.40 K/cmm 03/01/2020 16:42 [facility] RBC 5.57 4.36 - 5.78 M/cmm 03/01/2020 16:42 [facility] Hemoglobin 18.2(H) 13.8 - 17.3 gm/dL 03/01/2020 16:42 [facility] HCT 53.6(H) 39.5 - 50.2 % 03/01/2020 16:42 [facility] MCV 96(H) 81 - 95 fl 03/01/2020 16:42 [facility] MCH 32.7 27.6 - 33.0 pg 03/01/2020 16:42 [facility] MCHC 34.0 32.8 - 36.4 gm/dL 03/01/2020 16:42 EDT [facility] RDW-CV 12.5 <14.2 % 03/01/2020 16:42 EDT [facility] RDW-SD 44.4 <46.0 fl 03/01/2020 16:42 EDT [facility] PLT 255 141 - 377 K/cmm 03/01/2020 16:42 EDT [facility] MPV 10.4 9.5 - 12.7 fl 03/01/2020 16:42 EDT [facility] Blood VENOUS BLOOD / Unknown Venipuncture / Unknown 03/01/2020 15:57 EDT 03/01/2020 16:26 EDT Sara Mendez MD HEMATOLOGY & PF4 ORD ERABLES [facility] [address] [place] [address] documented in this encounter Visit Diagnoses Diagnosis Diverticulitis of large intestine with abscess, unspecified bleeding status- Primary documented in this encounter Orders Lab Orders Without Results Count Last Ordered D ate First Ordered Date BASIC METABOLIC PANEL (BMP) 1 03/01/2020 documented in this encounter Care Teams Chief Operator Lock Tender Relationship Specialty Start Date End Date Kylie Oglesby [address] [place] [address] PCP - General Internal Medicine - Primary Care 12/15/19 documented as of this encounter
--- OUTSIDE RECORDS SUMMARY | 2024-05-18 13:19 | XMS_ITS | Encounter Summary ---
Author Organization [facility] Address [address] [place] [address] Care Team Providers Care Joggle Press Operator Name Role Phone Kylie Oglesby Primary Care Provider [phone] Reason for Visit * Reason Onset Date Comments Appointment Related 12/15/2019 Encounter Details Date Type Department Care Team (Late st Contact Info) Description 12/15/2019 Telephone [facility] Urology - Medical Office Building [address] [place] [address], [address] [place], [place] [address] Myah Garcia RN Appointment Related Social History Tobacco Use Types Packs/Day Years Used Date Smoking Tobacco: Never Smokeless Tobacco: Never Sex and Gender Information Value Date Recorded Sex Assigned at Not on file Gender Identity Male 11/28/2019 13:59 EST Sexual Orientation Not on file documented as of this encounter Miscellaneous Notes * Telephone Encounter - Myah Garcia RN - 12/17/2019 1333 EST Noted * Telephone Encounter - Sandi Cabrera - 12/17/2019 0959 EST I sent a fax regarding getting this info faxed to [facility] and pushing images. * Telephone Encounter - Myah Garcia RN - 12/15/2019 1344 EST PAS Tc from Marielena at 's office, Colorectal office who states a referral was rec'd from Abel Ervin. Marielena is requesting a report from a CT done at [facility] from 04/2019 and images pushed and a report and pathology from a Colonoscopy done in 's office, 2 years ago. (possibly [place] [phone] and the fax number is [phone]. Pt has been seen by abel Ervin at [facility], not in this urology office at [facility]. Tc to Marielena to advise. documented in this encounter Plan of Treatment Not on file documented as of this encounter Visit Diagnoses Not on filedocumented in this encounter Care Teams Joggle Press Operator Relationship Specialty Start Date End Date Kylie Oglesby [address] [place] [address] PCP - General Internal Medicine - Primary Care 12/15/19 documented as of this encounter
--- OUTSIDE RECORDS SUMMARY | 2024-05-18 13:19 | XMS_ITS | Encounter Summary ---
Author Organization [facility] Address [address] [place] [address] Care Team Providers Care Taping Foreman Name Role Phone Unknown, Provider Primary Care Provider [phone] Reason for Visit * (Routine) - Receiving Office to Obtain Authorization Specialty Diagnoses / Procedures Referred By Kavitha burgos Referred To Contact Procedures CT OUTSIDE IMAGES BODY Unknown, Provider, Referral ID Status Reason Start Date Expiration Date Visits Requested Visits Authorized [id number] Receiving Office to Obtain Authorization 12/16/2019 1 1 Encounter Details Date Type Department Care Team (Late st Contact Info) Description 05/07/2019 Hospital Encounter [facility] Radiology - Main [place] [address] [place] [address] Social History Tobacco Use Types Packs/Day Years [...] Diagnosis Comments CT OUTSIDE IMAGES BODY Routine 12/16/2019 8:11 EST documented in this encounter Results * CT OUTSIDE IMAGES BODY (12/16/2019 8:11 EST) Narrative SAMEER - 12/16/2019 8:11 EST This is a non-reportable exam. Provider Unknown MD [facility] OTHER IMAGING OR DERABLES SAMEER documented in this encounter Visit Diagnoses Not on filedocumented in this encounter Care Teams Taping Foreman Relationship Specialty Start Date End Date Unknown, Provider, PCP - General 10/15/16 12/14/19 documented as of this encounter
--- OUTSIDE RECORDS SUMMARY | 2024-05-18 13:19 | XMS_ITS | Encounter Summary ---
Author Organization [facility] Address [address] [place] [address] Care Team Providers Care Clinical Secretary Name Role Phone Unknown, Provider Primary Care Provider [phone] Kylie Oglesby Primary Care Provider [phone] Encounter Details Date Type Department Care Team (Late st Contact Info) Description 12/01/2019 Historical Results Only [facility] Lab - Main [place] [address] [place] [address] Cathryn Monzon NP [address] [place] [address] Social History Tobacco Use Types [...] Associated Diagnosis Comments BACTERIAL CULTURE, URINE Routine 12/01/2019 16:48 EST documented in this encounter Results * BACTERIAL CULTURE, URINE (12/01/2019 16:48 EST) ESCHERIACHIA COLI [facility] ESCHERICHIA COLI 12/03/2019 7:32 EST [facility] CitrateConcentration 10,000-100,00 0 CFU/ML 12/03/2019 7:32 [facility] 12/01/2019 16:4 8 EST 12/01/2019 17:38 EST Comment:VOID Narrative Organism Antibiotic Method Susceptibility Escherichia coli Ampicillin Sulbactam GRAM NEGAT BRIONNA SUSCEPTIBILITY - [facility] <=2: Susceptible Escherichia coli Ampicillin GRAM NEGATIVE SUSCEPTIBILITY - [facility] 4: Susceptible Escherichia coli Amoxicillin Clavulan ic acid GRAM NEGATIVE SUSCEPTIBILITY - [facility] <=2: Susceptible Escherichia coli Ceftriaxone GRAM NEGATIVE SUSCEPTIBILITY - [facility] <=1: Susceptible Escherichia coli Cefazolin GRAM NEGATIVE SUSCEPTIBILITY - [facility] <=4: Susceptible Escherichia coli Ciprofloxacin GRAM NEGATIVE SUSCEPTIBILITY - [facility] <=0.25: Susceptible Escherichia coli Cefepime GRAM NEGATIVE SUSCEPTIBILITY - [facility] <=1: Susceptible Escherichia coli Ertapenem GRAM NEGATIVE SUSCEPTIBILITY - [facility] <=0.5: Susceptible Escherichia coli Nitrofurantoin GRAM NEGATIVE SUSCEPTIBILITY - [facility] <=16: Susceptible Escherichia coli Gentamicin GRAM NEGATIVE SUSCEPTIBILITY - [facility] <=1: Susceptible Escherichia coli Levofloxacin GRAM NEGATIVE SUSCEPTIBILITY - [facility] <=0.12: Susceptible Escherichia coli Piperacillin Tazobactam GRAM NEGATIVE SUSCEPTIBILITY - [facility] <=4: Susceptible Escherichia coli Trimethoprim-Sulfame th oxazole GRAM NEGATIVE SUSCEPTIBILITY - [facility] <=20: Susceptible Escherichia coli Tobramycin GRAM NEGATIVE SUSCEPTIBILITY - [facility] <=1: Susceptible Comment:RECURRENT UTI Cathryn Monzon NP MICROBIOLOGY - [facility] ORDERABLES [facility] documented in this encounter Visit Diagnoses Not on filedocumented in this encounter Care Teams Clinical Secretary Relationship Specialty Start Date End Date Unknown, ProviderMD PCP - General 10/15/16 12/14/19 Kylie Oglesby [address] [facility] [place] [address] PCP - General Internal Medicine - Primary Care 12/15/19 documented as of this encounter
--- OUTSIDE RECORDS SUMMARY | 2024-05-18 13:19 | XMS_ITS | Encounter Summary ---
Author Organization [facility] Address [address] [place] [address] Care Team Providers Care Medical Surgery Nurse Name Role Phone Kylie Oglesby Primary Care Provider [phone] Encounter Details Date Type Department Care Team (Late st Contact Info) Description 01/05/2020 Orders Only [facility] General Surgery - [facility] [address] [place] [address] Farheen Byers, RN [address] [place] [address] Social History Tobacco Use Types Packs/Day Years Used Date Smoking Tobacco: Former Cigarettes 2 1 965 - 1994 Smokeless Tobacco: Never Sex and Gender Information Value Date Recorded Sex Assigned at Not on file Gender Identity Male 11/28/2019 13:59 EST Sexual Orientation Not on file documented as of this encounter Ordered Prescriptions Prescription Sig Dispensed Refills Start Date End Da te polyethylene glycol (GOLYTELY) 236-22.74-6.74 -5.86 gram suspension Patient to follow one time directions as directed by Dr Mendez office. 1 Bottle 01/05/2020 02/18/2020 documented in this encounter Plan of Treatment Not on file documented as of this encounter Visit Diagnoses Not on filedocumented in this encounter Care Teams Medical Surgery Nurse Relationship Specialty Start Date End Date [place] [address] PCP - General Internal Medicine - Primary Care 12/15/19 documented as of this encounter
--- OUTSIDE RECORDS SUMMARY | 2024-05-18 13:19 | XMS_ITS | Encounter Summary ---
Author Organization [facility] Address [address] [place] [address] Care Team Providers Care Supervisor Rose Grading Name Role Phone Kylie Oglesby Primary Care Provider [phone] Encounter Details Date Type Department Care Team (Latest Contact Info) Description 02/05/2020 Travel Social History Tobacco Use Types Packs/Day [...] have Coronavirus / COVID-19? No / Unsure 02/05/2020 11:02 EDT documented as of this encounter Plan of Treatment Not on file documented as of this encounter Visit Diagnoses Not on filedocumented in this encounter Care Teams Supervisor Rose Grading Relationship Specialty Start Date End Date Kylie Ogles[place] [place] [address] PCP - General Internal Medicine - Primary Care 12/15/19 documented as of this encounter
--- OUTSIDE RECORDS SUMMARY | 2024-05-18 13:19 | XMS_ITS | Encounter Summary ---
Author Organization [facility] Address [address] [place] [address] Care Team Providers Care Retail Pos Specialist Name Role Phone Kylie Oglesby Primary Care Provider [phone] Encounter Details Date Type Department Care Team (Late st Contact Info) Description 03/01/2020 Orders Only [facility] General Surgery - [facility] [address] [place] [address] Farheen Byers, VIVEK [address] [place] [address] Social History Tobacco Use Types Packs/Day Years Used Date Smoking Tobacco: Former Cigarettes 5 - 1994 Smokeless Tobacco: Never Alcohol [...] 9:44 EDT documented as of this encounter Ordered Prescriptions Prescription Sig Dispensed Refills Start Date End Da te polyethylene glycol (GOLYTELY) 236-22.74-6.74 -5.86 gram suspension Patient to follow one time directions as directed by Dr Mendez office for surgery prep 1 Bottle 03/01/2020 03/17/2020 chlorhexidine gluconate 4 % (E-Z SCRUB 107) sponge Use as directed in pre-op showering instructions. 2 Each 03/01/2020 03/17/2020 neomycin 500 mg tablet Patient to take 2 tablets at 3 PM, 4 PM and 10 PM day before surgery. 6 Tab 03/01/2020 03/17/2020 metroNIDAZOLE (FLAGYL) 500 mg tablet Patient to take one tablet at 3 PM, 4 PM and 10 PM day before surgery. 3 Tab 03/01/2020 03/17/2020 bisacodyL (DULCOLAX) 5 mg EC tablet Patient to take as directed day before surgery. 2 Tab 03/01/2020 03/17/2020 documented in this encounter Plan of Treatment Not on file documented as of this encounter Visit Diagnoses Not on filedocumented in this encounter Care Teams Retail Pos Specialist Relationship Specialty Start Date End Date Kylie Oglesby [address] [place] [address] PCP - General Internal Medicine - Primary Care 12/15/19 documented as of this encounter
--- OUTSIDE RECORDS SUMMARY | 2024-05-18 13:19 | XMS_ITS | Encounter Summary ---
Author Organization [facility] Address [address] [place] [address] Care Team Providers Care Chainstitch Felled Seam Operator Name Role Phone Kylie Oglesby Primary Care Provider [phone] Reason for Visit * Auth/Cert Specialty Diagnoses / Procedures Referred By Kavitha burgos Referred To Contact Diagnoses History of colon polyps History of colon polyps [Z86.010] Procedures COLONOSCOPY PROCEDURE-GI Referral ID Status Reason Start Date Expiration Date Visits Re quested Visits Authorized [id number] 1 1 Encounter Details Date Type Department Care Team (Late st Contact Info) Description 02/18/2020 9:45 EDT - 02/18/2020 12:53 EDT Hospital Encounter [facility] Endoscopy - [facility] [address] [place] [address] Sara Mendez MD [address] [facility], [address] [place] [address] Discharge Disposition: Home or Self Care Social [...] Sign Reading Time Taken Comments Blood Pressure 133/80 02/18/2020 1230 EDT Pulse 88 02/18/2020 1007 EDT Temperature 35.7 ??C (96.3 ??F) 02/18/2020 1226 EDT Respiratory Rate 16 02/18/2020 1230 EDT Oxygen Saturation 95% 02/18/2020 1230 EDT Inhaled Oxygen Concentration - - [...] & Physical Date: 02/18/2020 Time: 11:29 Location: [facility] GI/ENDO Planned Procedure: Procedure(s): COLONOSCOPY PROCEDURE-GI Chief [...] Last Liquid: 02/18/20 Time of Last Liquid: 0900 Date of Last Solid: 02/16/20 Time of Last Solid: 2359 Patient Appropriate Candidate for Planned Sedation?: Yes [...] ??Total sedation time was 26 ?? minutes. [place] Bowel Prep Right Colon: 3 ? Transverse [...] in this encounter Visit Diagnoses Diagnosis Diverticulitis large intestine Diverticulitis of [...] 1038 (New Bag - Prov ider: Alvina Llamas RN)1237 (Completed - Provider: Alvina Llamas RN) lactated [...] 02/18/2020 documented in this encounter Care Teams Chainstitch Felled Seam Operator Relationship Specialty Start Date End Date Kylie Oglesby [address] [place] [address] PCP - General Internal Medicine - Primary Care 12/15/19 documented as of this encounter
--- OUTSIDE RECORDS SUMMARY | 2024-05-18 13:19 | XMS_ITS | Encounter Summary ---
Author Organization [facility] Address [address] [place] [address] Care Team Providers Care Resident Services Manager Name Role Phone Unknown, Provider Primary Care Provider [phone] Reason for Referral * Consult (Routine) - Specialty Report Received Specialty Diagnoses / Procedures Referred By Kavitha burgos Referred To Contact General Surgery Diagnoses Pneumaturia Recurrent UTI Cathryn Monzon NP [address] [place] [phone] Sara Mendez MD [address] [place] [address] 5 [place] [address] Referral ID Status Reason Start Date Expiration Date Visits Requested Visits Authorized [id number] Specialty Report Received Specialty Services Required 12/01/2019 1 1 Question Answer Reason for Request: recurrent UTIs, pneumaturia, 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 * Radiology Services (Routine) - Specialty Report Received Specialty Diagnoses / Procedures Referred By Kavitha burgos Referred To Contact Diagnoses UTI symptoms Pneumaturia Procedures CT ABDOMEN PELVIS W CONTRAST Cathryn Monzon NP [address] [place] [phone] Referral ID Status Reason Start Date Expiration Date V isits Requested Visits Authorized [id number] Specialty Report Received 12/01/2019 1 1 Reason for Visit * Reason Comments Recurrent Urinary Tract Infection New Patient Visit Encounter Details Date Type Department Care Team (Late st Contact Info) Description 12/01/2019 14:30 EST Initial consult [facility] [address] [place] [address] Cathryn Monzon, WINE AND SPIRITS CLERK [address] [place] [address] Recurrent UTI (Primary Dx); UTI symptoms; Pneumaturia Social History Tobacco Use Types Packs/Day Years Used Date Smoking Tobacco: Never Smokeless Tobacco: Never Sex and Gender Information Value Date Recorded Sex Assigned at Not on file Gender Identity Male 11/28/2019 13:59 EST Sexual Orientation Not on file documented as of this encounter Ordered Prescriptions Prescription Sig Dispensed Refills Start Date End Da te nitrofurantoin (MACRODANTIN) 50 mg capsule Take 1 Cap by mouth at bedtime. Start the day after completing your full course of treatment 30 Cap 1 12/01/2019 03/03/2020 nitrofurantoin, macrocrystal-monohydrate , (MACROBID) 100 mg capsule Take 1 Cap by mouth 2 times daily. 14 Cap 12/01/2019 03/03/2020 documented in this encounter Progress Notes * Cathryn Monzon, BUSINESS OFFICE SPECIALIST - 12/01/2019 1430 EST Subjective: Patient ID: Jasbir Kate is an 79 y.o. male. Jasbir Kate is seen in the office today for Recurrent Urinary Tract Infection and New Patient Visit. HARLAN Martell has a PMH significant for BPH with frequent UTIs. PSH significant for appendectomy and tonsillectomy. He was referred to this Urology clinic for a second opinion regarding prevention/treatment for his frequent UTIs. His first UTI was in 08/2017, at which time he was referred to see Dr. Vasquez who put him on tamsulosin for BPH. Since then he has had 4 further UTIs, in 08/2018, 09/2018, 04/2019, and most recently in 10/2019. He believes that each time he has had burkett sensitive E. Coli infections. He has never developed pyelonephritis or sepsis 2/[address] a [address] abd/pelvis when he was seen in the [facility] ED for back pain in 04/2019, and recalls being told that he had a spot on his kidney, but there is no mention of that in the ED note. I do not have the CT images nor report. His typical UTI symptoms are increased urinary frequency, dysuria, and suprapubic pain. He has not been able to identify any triggers for his UTIs. He denies gross hematuria or urinary incontinence. Of note, about 2 years ago he started having intermittent pneumaturia. This occurs both when he is asymptomatic and during UTI. He denies history of diverticulitis, and endorses normal BMs. He had a normal colonoscopy ~3years ago. He just completed his most recent course of antibiotics for UTI a few days ago, and is already symptomatic of infection again. He denies fevers/chills, nausea/vomiting, or flank pain. UA today with trace blood, 1+ protein, 1+ leuks PVR 0mL There is no problem list on file for this patient. History reviewed. No pertinent past medical history. History reviewed. No pertinent surgical history. History reviewed. No pertinent family history. Social Social History Tobacco Use ??? Smoking status: Never Smoker ??? Smokeless tobacco: Never Used Substance Use Topics ??? Alcohol use: Not on file ??? Drug use: Not on file Current Outpatient Medications on File Prior to Visit Medication Sig Dispense Refill ??? cephALEXin (KEFLEX) 500 mg capsule TK 1 C PO TID ??? tamsulosin (FLOMAX) 0.4 mg capsule Take by mouth daily. No current facility-administered medications on file prior to visit. Allergies Allergen Reactions ??? Steroid [Corticosteroids (Glucocorticoids)] Other (See Comments) Paranoia, crazy Review of Systems Constitutional: Negative for chills, fever, malaise/fatigue and weight loss. Respiratory: Negative for shortness of breath. Cardiovascular: Negative for chest pain. Gastrointestinal: Negative for abdominal pain, constipation and nausea. Genitourinary: Negative for dysuria, flank pain, frequency, hematuria and urgency. Neurological: Negative for weakness. Endo/Heme/Allergies: Negative for polydipsia. Psychiatric/Behavioral: Negative for depression. All other systems reviewed and are negative. - See HPI Objective: There were no vitals taken for this visit. Physical Exam Constitutional: He is oriented to person, place, and time. He appears well- developed and well-nourished. No distress. Neck: Neck supple. Cardiovascular: Normal rate and regular rhythm. Pulmonary/Chest: Effort normal. Abdominal: Soft. There is tenderness in the suprapubic area. There is no CVA tenderness. Lymphadenopathy: He has no cervical adenopathy. Right: No supraclavicular adenopathy present. Left: No supraclavicular adenopathy present. Neurological: He is alert and oriented to person, place, and time. Skin: Skin is warm and dry. Psychiatric: He has a normal mood and affect. His speech is normal and behavior is normal. Judgmentnormal. Cognition and memory are normal. Initial consult on 12/01/2019 Component Date Value Ref Range Status ??? Color, UA 12/01/2019 Yellow Final ??? Clarity, UA 12/01/2019 Clear Final ??? Glucose, UA 12/01/2019 Negative . mg/dL Final ??? Bilirubin, UA 12/01/2019 Negative . Final ??? Ketones, UA 12/01/2019 Negative . mg/dL Final ??? Spec Grav, UA 12/01/2019 1.020 . Final ??? Blood, UA 12/01/2019 Trace* . Final ??? pH, UA 12/01/2019 7.0 4.6 - 8.0 Final ??? Protein, UA 12/01/2019 1+* . mg/dL Final ??? Urobilinogen, UA 12/01/2019 1.0 0.2 - 1.0 E.U./dL Final ??? Nitrite, UA 12/01/2019 Negative . Final ??? Leuk Esterase 12/01/2019 1+* . Final PSA: No results found for: PSA BMP: No results found for: NA, K, CL, CO2, BUN, CREATININE, CALCIUM, CALCCA, MG, PHOS, LABALBU Assessment / Plan: 1. Recurrent UTI 2. UTI symptoms 3. Pneumaturia Jasbir' recurrent UTIs in context of intermittent pneumaturia, is certainly concerning for possible colovesicular fistula. He will have a CT abd/pelvis with contrast for further evaluation, and I havereferred him to see Dr. Mendez with colorectal surgery at [facility] for colonoscopy. His urine was sent for culture today. We discussed waiting for the culture and sensitivities to result prior to starting an antibiotic, but he prefers to start something now. He will take 7 days of twice daily nitrofurantoin 100mg, and then transition onto once daily 50mg nitrofurantoin for ongoing UTI prevention while he completes his workup. Jasbir verbalized understanding and is amenable to this plan. This case was discussed with Dr. Chin, including my assessment and plan. Other Orders Placed This Visit Procedures ??? Bladder Scan ??? CT ABDOMEN PELVIS W CONTRAST ??? UA, Sediment Analysis (microscopic) with reflex to Bacterial Culture if Positive ??? Amb Consult/Follow Up General Surgery ??? POCT Urine Dipstick Visual Read Cathryn Monzon APRN documented in this encounter Plan of Treatment Scheduled Orders Name Type Priority Associated Diagnoses Orde r Schedule BLADDER SCAN Procedures Routine UTI symptoms Ordered: 12/01/2019 CT ABDOMEN PELVIS W CONTRAST Imaging Routine UTI symptoms Pneumaturia Ordered: 12/01/2019 URINARY TRACT INFECTION TESTING Lab Routine Pneumaturia Ordered: 12/01/2019 Scheduled Referrals Name Type Priority Associated Diagnoses Orde r Schedule AMB CONS/FOLLOW UP GENERAL SURGERY Outpatient Referral Routine Pneumaturia Recurrent UTI Ordered: 12/01/2019 documented as of this encounter Procedures Procedure Name Priority Date/Time Associated Diagnosis Comments POCT URINE DIPSTICK, VISUAL READ Routine 12/01/2019 14:46 EST UTI symptoms documented in this encounter Results * (ABNORMAL) POCT URINE DIPSTICK, VISUAL READ (12/01/2019 14:46 EST) Color, UA Yellow POINT OF C [facility] Clarity, UA Clear [facility] Glucose, UA Negative . mg/dL [facility] Bilirubin, UA Negative . [facility] Ketones, UA Negative . mg/dL [facility] Spec Grav, UA 1.020 . [facility] Blood, UA Trace(A) . POINT [facility] pH, UA 7.0 4.6 - 8.0 [facility]INT [facility] Protein, UA 1+(A) . mg/dL [facility] Urobilinogen, UA 1.0 0.2 - 1.0 E.U./dL [facility] Nitrite, UA Negative . [facility] Leuk Esterase 1+(A) . [facility]INT [facility] Comment POINT [facility] C [facility] Urine URINE / Unknown 12/01/2019 1 4:46 EST Cathryn Monzon NP POINT OF CARE TEST ORDERABLES [facility] documented in this encounter Visit Diagnoses Diagnosis Recurrent UTI- Primary Urinary tract infection, site not specified UTI symptoms Other symptoms involving urinary system Pneumaturia Other specified disorders of urethra documented in this encounter Historical Medications * This list may reflect changes made after this encounter. Medication Sig Dispensed Refills Start Date End Date tamsulosin (FLOMAX) 0.4 mg capsule Take by mouth daily. 11/17/2019 cephALEXin (KEFLEX) 500 mg capsule TK 1 C PO TID 11/20/2019 03/03/2020 added in this encounter Care Teams Resident Services Manager Relationship Specialty Start Date End Date Unknown, Provider, PCP - General 10/15/16 12/14/19 documented as of this encounter
--- OUTSIDE RECORDS SUMMARY | 2024-05-18 13:19 | XMS_ITS | Encounter Summary ---
Author Organization [facility] Address [address] [place] [address] Care Team Providers Care Magistrate Name Role Phone Kylie Oglesby Primary Care Provider [phone] Encounter Details Date Type Department Care Team (Late st Contact Info) Description 03/01/2020 16:00 EDT Phlebotomy Only [facility] 2 Phlebotomy [address] [place], [place] [address] Landscape Crew Leader, Acc Phlebotomy Frequent UTI; Diverticulitis of large intestine with abscess, unspecified bleeding status Social History Tobacco Use Types Packs/Day Years Used Date Smoking Tobacco: Former Cigarettes 30 1 965 - 1994 Smokeless Tobacco: [...] Date/Time Associated Diagnosis Comments COMPLETE BLOOD COUNT Routine 03/01/2020 15:57 EDT Diverticulitis of large intestine with abscess, unspecified bleeding status BASIC METABOLIC PANEL (BMP) Routine 03/01/2020 15:57 EDT Frequent UTI documented in this encounter Results * (ABNORMAL) COMPLETE BLOOD COUNT (03/01/2020 15:57 EDT) WBC 10.53(H) 4.00 - 10.40 K/cmm 03/01/2020 16:42 EDT [facility] RBC 5.57 4.36 - 5.78 M/cmm 03/01/2020 16:42 [facility] Hemoglobin 18.2(H) 13.8 - 17.3 gm/dL 03/01/2020 16:42 T [facility] HCT 53.6(H) 39.5 - 50.2 % 03/01/2020 16:42 [facility] MCV 96(H) 81 - 95 fl 03/01/2020 16:42 [facility] MCH 32.7 27.6 - 33.0 pg 03/01/2020 16:42 [facility] MCHC 34.0 32.8 - 36.4 gm/dL 03/01/2020 16:42 [facility] RDW-CV 12.5 <14.2 % 03/01/2020 16:42 [facility] RDW-SD 44.4 <46.0 fl 03/01/2020 16:42 [facility] PLT 255 141 - 377 K/cmm 03/01/2020 16:42 [facility] MPV 10.4 9.5 - 12.7 fl 03/01/2020 16:42 [facility] Blood VENOUS BLOOD / Unknown Venipuncture / Unknown 03/01/2020 15:57 EDT 03/01/2020 16:26 EDT Sara Mendez MD HEMATOLOGY & PF4 ORD ERABLES [facility] [address] [place] [address] * BASIC METABOLIC PANEL (BMP) (03/01/2020 15:57 EDT) Sodium 140 136 - 145 mEq/L 03/01/2020 16:59 EDT [facility] Potassium 4.5 3.5 - 5.0 mEq/L 03/01/2020 16:59 [facility] Chloride 104 96 - 110 mEq/L 03/01/2020 16:59 T [facility] CO2 Total 27 22 - 32 mEq/L 03/01/2020 16:59 [facility] Glucose 86 70 - 100 mg/dL 03/01/2020 16:59 EDT [facility] Calcium 9.9 8.5 - 10.5 mg/dL 03/01/2020 16:59 [facility] Calculated Calcium 9.6 8.5 - 10.5 mg/dL 03/01/2020 16:59 [facility] BUN 15 10 - 26 mg/dL 03/01/2020 16:59 [facility] Creatinine 0.85 0.66 - 1.25 mg/dL 03/01/2020 16:59 [facility] eGFR 83 >60 mL/min/1.7 3m2 03/01/2020 16:59 [facility] Comment:eGFR calculated usmandeep cee CKD-EPI equation for non- Americans. Multiply eGFR by 1.16 for patients. Blood VENOUS BLOOD / Unknown Venipuncture / Unknown 03/01/2020 15:57 EDT 03/01/2020 16:26 EDT Cathryn Monzon NP CHEMISTRY & BLOOD G ORDERABLES Performing Organization Address City/State/[facility] Co de Phone Number [facility] [address] [place] [address] documented in this encounter Visit Diagnoses Diagnosis Frequent UTI Urinary tract infection, site not specified Diverticulitis of large intestine with abscess, unspecified bleeding status documented in this encounter Care Teams Magistrate Relationship Specialty Start Date End Date Kylie Oglesby [address] [place] [address] PCP - General Internal Medicine - Primary Care 12/15/19 documented as of this encounter
[2024-05-18 14:24] LABS: Abs Immature Grans 0.01 10^3/uL (0.0-0.06); Absolute Basophil Count 0.03 10^3/uL (0.0-0.2); Absolute Eosinophil Count 0.09 10^3/uL (0.0-0.7); Absolute Lymphocyte Count 2.05 10^3/uL (1.2-3.4); Absolute Monocyte Count 0.72 10^3/uL (0.1-0.8); Basophils % 0.4 %; Eosinophils % 1.3 %; HCT 55.3 % (40.0-50.0); HGB 18.2 g/dL (13.5-17.5); Immature Grans % 0.1 %; Lymphocytes % 28.9 %; MCH 32.3 pg (27.0-33.0); MCHC 32.9 % (32.0-36.0); MCV 98 fL (80-95); MPV 10.6 fL (8.0-11.0); Monocytes % 10.1 %; Neutrophils % 59.2 %; Platelet Count 252 10^3/uL (130-400); RBC 5.64 10^6/uL (4.36-5.78); RDW 12.8 % (11.8-14.1)
[2024-05-18 15:00] LABS: Vitamin B12 633 pg/mL (193-986)
== END 2024-05-18 13:13 | disposition home or self-care (01) ==
LOC: NCHCN 13:12
PROVIDERS: PCP Family Medicine; Visit Provider Internal Medicine
DX: D75.1 Secondary polycythemia (principal); E53.8 Deficiency of other specified B group vitamins
CPT/HCPCS: 82607; 85025

== ENCOUNTER 2024-08-19 12:21 | Outpatient (REF) | payer MEDICARE, BC, SELFPAY ==
--- OUTSIDE RECORDS SUMMARY | 2024-08-19 12:23 | XMS_ITS | Clinical Summary ---
Author Organization [facility] Address [address] [place] [address] Care Team Providers Care Client Customer Manager Name Role Phone Kylie Oglesby Primary Care Provider [phone] Allergies Active Allergy Reactions Criticality Noted Date Comments Corticosteroids (Glucocorticoids) Other (See Comments) 12/01/2019 Paranoia, twanzjazlyn Medications Medication Sig Dispensed Refills Start Date [...] Overview: Added automatically from request for surgery [id number] Diverticulitis 03/01/2020 Overview: Added automatically from request for surgery [id number] Diverticulitis large intestine 02/18/2020 Immunizations Name Administration Dates Next Due Influenza Vaccine High Dose (FLUZONE HIGH DOSE) PF 0.7 ml IM (65 yrs+) 09/10/2019 Surgical History Surgery Date Site/Laterality Comments APPENDECTOMY 10/28/1945 - 10/27/1946 TONSILLECTOMY ~1946 Medical History Medical History Date Comments Colon polyp Frequent UTI started having i ssues [id number], never been hospitalized for uti Fistula colovesicular [...] 25.56 06/28/2020 1432 EDT Plan of Treatment Upcoming Encounters Date Type Department Care Team (Late st Contact Info) Description 08/25/2024 11:00 EDT Procedure visit [facility] [address] [place] [address] Ryan Shields MD [address] [place] [address], [facility] [address] [place] [address] Health Maintenance Due Date Last Done Comments RSV Immunization ( o r 60+ Years) (1 - 1-dose 60+ series) 2001 Fall Risk Screening 2006 COVID-19 Vaccine (1 - 2024-25 season) 2024 Medical Devices Implanted Type Area Auto Fleet Maintenance Manager Device Identifier Shelf Expiration Date Model / Serial / Lot Evacuator Suction 100cc Silicone Closed Wound With Anti-Reflux Valve - [id number] Implanted:Qty : 1 on 03/17/2020 by Sara Mendez [place] [facility] [place] Drain N/A: Abdomen Smart Pipe [id number] 07/25/2022 [id number] Advance Directives For more information, please contact: [phone] Documents on File Type Date Recorded Patient Anesthesiologists' Assistant Expl anation Advance Directive 03/17/2020 7:05 AD/POA Advance Directive 03/18/2020 9:21 [place] Advan ce Directive for Health Care-Signed 2015-06-03 Advance Directive 03/18/2020 9:21 Power Of Trick Rodeo Rider-Signed 2015-06-03 * Full Code (Latest Code Status [...] the discussion? Not Discusse d Care Teams Client Customer Manager Relationship Specialty Start Date End Date Kylie Oglesby [address] [place] [address] PCP - General Internal Medicine - Primary Care 12/15/19
--- OUTSIDE RECORDS SUMMARY | 2024-08-19 12:23 | XMS_ITS | Encounter Summary ---
Author Organization [facility] Address [address] [place] [address] Care Team Providers Care Spinneret Cleaner Name Role Phone Kylie Oglesby Primary Care Provider [phone] Reason for Referral * (Routine/Next Available) - Receiving Office to Obtain Authorization Specialty Diagnoses / Procedures Referred By Contac t Referred To Contact Procedures CT OUTSIDE IMAGES HEAD Imaging, External Referral ID Status Reason Start Date Expiration Date Visits Requested Visits Authorized [id number] Receiving Office to Obtain Authorization 01/11/2024 1 1 Reason for Visit * (Routine/Next Available) - Receiving Office to Obtain Authorization Specialty Diagnoses / Procedures Referred By Contac t Referred To Contact Procedures CT OUTSIDE IMAGES HEAD Imaging, External Referral ID Status Reason Start Date Expiration Date Visits Requested Visits Authorized [id number] Receiving Office to Obtain Authorization 01/11/2024 1 1 Encounter Details Date Type Department Care Team (Latest Contact Info) Description 01/11/2024 11:49 EDT - 01/11/2024 23:59 EDT Hospital Encounter [facility] Secondary Reads [place] Discharge Disposition: Home or [...] documented in this encounter Plan of Treatment Upcoming Encounters Date Type Department Care Team (Late st Contact Info) Description 08/25/2024 11:00 EDT Procedure visit [facility]rology [facility] [address] [place] [address] Ryan Shields MD [address] [place] [address], [facility] [address] [place] [address] documented as of this encounter Procedures Procedure [...] on filedocumented in this encounter Care Teams Spinneret Cleaner Relationship Specialty Start Date End Date Kylie Oglesby [address] [place] [address] PCP - General Internal Medicine - Primary Care 12/15/19 documented as of this encounter
--- OUTSIDE RECORDS SUMMARY | 2024-08-19 12:23 | XMS_ITS | Encounter Summary ---
Author Organization [facility] Address [address] [place] [address] Care Team Providers Care Research Contracts Supervisor Name Role Phone Kylie Oglesby Primary Care Provider [phone] Reason for Visit * Reason Comments Follow-up Encounter Details Date Type Department Care Team (Late st Contact Info) Description 06/28/2020 14:30 EDT Office Visit [facility] General Surgery - [facility] [address] [place], [place] [address] Sara Mendez MD [address] [facility], [address] [place] [address] Colovesical fistula (Primary Dx) Social [...] been seen by the urology department at [facility] with Cathryn Monzon. 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 ??He denies any chest pain with exertion, but does have some shortness of breath if he walks out 2 flights of stairs ?? Colonoscopy was about 2 to 3 years ago at [facility]. ??He states it was normal. ??He [...] diverticulitis ??? Frequent UTI started having issues [id number], never been hospitalized for uti ??? History [...] Info) Description 08/25/2024 11:00 EDT Procedure visit [facility] [address] [place], [place] [address] Ryan Shields MD [address] [place] [address], [address] [place] [address] documented as of this encounter Visit Diagnoses Diagnosis Colovesical fistula- Primary Intestinovesical fistula documented in this encounter Care Teams Research Contracts Supervisor Relationship Specialty Start Date End Date Kylie Oglesby [address] [place] [address] PCP - General Internal Medicine - Primary Care 12/15/19 documented as of this encounter
--- OUTSIDE RECORDS SUMMARY | 2024-08-19 12:23 | XMS_ITS | Encounter Summary ---
Author Organization [facility] Address [address] [place] [address] Care Team Providers Care Mechanical Engineering Technologist Name Role Phone Kylie Oglesby Primary Care Provider [phone] Encounter Details Date Type Department Care Team (Latest Contact Info) Description 03/17/2020 Travel Social History Tobacco Use Types Packs/Day Years Used Date Smoking Tobacco: Former Cigarettes 30 1 965 1994 Smokeless Tobacco: Never Alcohol Use [...] as of this encounter Plan of Treatment Upcoming Encounters Date Type Department Care Team (Late st Contact Info) Description 08/25/2024 11:00 EDT Procedure visit [facility] Clinic [address] [place] [address] Ryan Shields MD [address] [place] [address] [address] [place] [id number] documented as of this encounter Visit Diagnoses Not on filedocumented in this encounter Care Teams Mechanical Engineering Technologist Relationship Specialty Start Date End Date Kylie Oglesby [address] [place] [address] PCP - General Internal Medicine - Primary Care 12/15/19 documented as of this encounter
--- OUTSIDE RECORDS SUMMARY | 2024-08-19 12:23 | XMS_ITS | Encounter Summary ---
Author Organization [facility] Address [address] [place] [address] Care Team Providers Care Remote Sensing Engineer Name Role Phone Kylie Oglesby Primary Care Provider [phone] Reason for Visit * Reason Comments Post-OP Follow Up Encounter Details Date Type Department Care Team (Late st Contact Info) Description 04/12/2020 15:30 EDT Post-op Visit [facility] General Surgery - [facility] [address] [place], [place] [address] Sara Mendez MD [address] [facility], [address] [place] [address] Colovesical fistula (Primary Dx) Social [...] been seen by the urology department at [facility] with Cathryn Monzon. 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 ??He denies any chest pain with exertion, but does have some shortness of breath if he walks out 2 flights of stairs ?? Colonoscopy was about 2 to 3 years ago at [facility]. ??He states it was normal. [...] diverticulitis ??? Frequent UTI started having issues [id number], never been hospitalized for uti ??? History [...] Info) Description 08/25/2024 11:00 EDT Procedure visit [facility] Clinic [address] [place] [address] Ryan Shields MD [address] [facility], [address] [place] [address] documented as of this encounter Visit Diagnoses Diagnosis Colovesical fistula- Primary Intestinovesical fistula documented in this encounter Care Teams Remote Sensing Engineer Relationship Specialty Start Date End Date Kylie Oglesby [address] [place] [address] PCP - General Internal Medicine - Primary Care 12/15/19 documented as of this encounter
--- OUTSIDE RECORDS SUMMARY | 2024-08-19 12:23 | XMS_ITS | Encounter Summary ---
Author Organization [facility] Address [address] [place] [address] Care Team Providers Care Ore Mixer Name Role Phone Kylie Oglesby Primary Care Provider [phone] Reason for Visit * Reason Onset Date Comments Medication Questions 07/05/2020 Encounter Details Date Type Department Care Team (Late st Contact Info) Description 07/05/2020 Telephone [facility] [address] [place] [address] James Chin MD [address] [facility] [address] [place] [address] Medication Questions Social History Tobacco [...] Info) Description 08/25/2024 11:00 EDT Procedure visit [facility] [address], [place] [id number] Ryan Shields MD [address] [facility] [place] [address] documented as of this encounter Visit Diagnoses Not on filedocumented in this encounter Care Teams Ore Mixer Relationship Specialty Start Date End Date Kylie Oglesby [address] [place], [place] [address] PCP - General Internal Medicine - Primary Care 12/15/19 documented as of this encounter
--- OUTSIDE RECORDS SUMMARY | 2024-08-19 12:23 | XMS_ITS | Referral Summary ---
Author Organization [facility] Address [address] [place] [address] Care Team Providers Care Cager Operator Name Role Phone Kylie Oglesby Primary Care Provider [phone] Allergies Active Allergy Reactions Criticality Noted Date [...] Overview: Added automatically from request for surgery [id number] Diverticulitis 03/01/2020 Overview: Added automatically from request for surgery [id number] Diverticulitis large intestine 02/18/2020 Immunizations Name Administration [...] making decisions? No 06/28/2020 Plan of Treatment Upcoming Encounters Date Type Department Care Team (Late st Contact Info) Description 08/25/2024 11:00 EDT Procedure visit [facility] [address] [place] [address] Ryan Shields MD [address] [place] [address], [facility] [address] [place] [address] Medical Devices Implanted Type Area Carton Repairer Device Identifier Shelf Expiration Date Model / Serial / Lot Evacuator Suction 100cc Silicone Closed Wound With Anti-Reflux Valve - [id number] Implanted:Qty : 1 on 03/17/2020 by Sara Mendez MD at [facility] Drain N/A: Abdomen [employer] [id number] 07/25/2022 [id number] Advance Directives For more information, please contact: [phone] Documents on File Type Date Recorded Patient Oncology Transplant Network Manager Expl anation Advance Directive 03/17/2020 7:05 AD/POA Advance Directive 03/18/2020 9:21 [place] Directive for Health Care-Signed 2015-06-03 Advance Directive 03/18/2020 9:21 Power Of Social Worker Palliative Care-Signed 2015-06-03 * Full Code (Latest Code Status [...] the discussion? Not Discusse d Care Teams Cager Operator Relationship Specialty Start Date End Date Kylie Oglesby [address] [place] [address] PCP - General Internal Medicine - Primary Care 12/15/19
--- OUTSIDE RECORDS SUMMARY | 2024-08-19 12:23 | XMS_ITS | Encounter Summary ---
Author Organization [facility] Address [address] [place] [address] Care Team Providers Care Freight Representative Name Role Phone Kylie Oglesby Primary Care Provider [phone] Reason for Referral * Referral (48 Hrs (Urgent)) - Closed Specialty Diagnoses / Procedures Referred By Kavitha burgos Referred To Contact Diagnoses Colovesical fistula Es Peace, EXPRESSIVE MUSIC THERAPIST [address] [facility] [address] [place] [address] Referral ID Status Reason Start Date Expiration Date V isits Requested Visits Authorized [id number] Closed Specialty Services Required 03/25/2020 1 1 Question Answer I certify that this patient is under my care and that I, or another Medicare allowed practitioner (DO AGUSTINA, CHAYITO) working with me, had a mrtn-du-ppjx encounter with this patient on this date: 03/25/2020 I further certify that the dfer-yq-mavc encounter was in whole or in part [...] skilled care requested: Physical Therapy, Nursing asessment FPC assessment needed related to this encounter: GI Status Physical therapy is needed for: Safety, Strength Training/Exercise Program, Gait/Mobility Assessment and Training Expected Discharge Date (Inpatient Only): 03/25/2020 * (Routine) - Receiving Office to Obtain Authorization Specialty Diagnoses / Procedures Referred By Contac t Referred To Contact Es Peace NP [address] [place] [phone] Referral ID Status Reason Start Date Expiration Date Visits Requested Visits Authorized [id number] Receiving Office to Obtain Authorization Specialty Services Required 0 1 1 Comments Please call our clinic at [phone] to schedule a follow up appointment with your surgeon in 3-4 weeks. Call if you have any questions or concerns. * (Routine) - Receiving Office to Obtain Authorization Specialty Diagnoses / Procedures Referred By Contac t Referred To Contact Es Peace NP [address] [place] [phone] Referral ID Status Reason Start Date Expiration Date Visits Requested Visits Authorized [id number] Receiving Office to Obtain Authorization Specialty Services [...] Referred To Contact Diagnoses Colovesical fistula Procedures FL LAP,SURG,COLECTOMY, PARTIAL, W/ANAST Diagnostic laparoscopy with possible sigmoid colectomy Referral ID Status Reason Start Date Expiration Date Visits Re quested Visits Authorized [id number] 1 1 Encounter Details Date Type Department Care Team (Late st Contact Info) Description 03/17/2020 6:49 EDT - 03/26/2020 12:10 EDT Hospital Encounter [facility] General Surgery Unit [address] [place], [place] [id number] Sara Mendez MD [address] [facility], [facility] [address] [place] [address] Colovesical fistula (Primary Dx) Discharge Disposition: Home-Health Care Svc Social History Tobacco Use Types Packs/Day Years Used Date Smoking Tobacco: Former Cigarettes 1 5 1994 Smokeless Tobacco: Never Alcohol [...] 03/01/2020 Added automatically from request for surgery [id number] ??? Diverticulitis 03/01/2020 Added automatically from request for surgery [id number] Resolved Hospital Problems No resolved problems to [...] Post Op Visit with Sara Mendez MD [facility] Surgery [facility] (--) [address] [place] [id number] Follow-up appointments and procedures Amb Consult/Follow Up Home Health Services I certify that this patient is under my care and that I, or another Medicare authorized non-physician practitioner (PA or EXPRESSIVE MUSIC THERAPIST) or resident working with me, had a nitm-iw-tare encounter with this patient on this date: 03/25/2020 I further certify that the wwbs-sx-lhis encounter was in whole or in part related to the reason thepatient needs home health care.: Yes The patient has had a kwwv-gp-vnun visit by me or one of my [...] Skilled Care Requested: Physical Therapy Nursing asessment FPC assessment needed related to this encounter: GI Status Physical therapy is needed for: Safety Strength Training/Exercise Program Gait/Mobility Assessment and Training Expected Discharge Date (Inpatient Only): 03/25/2020 Authorizing Provider: Es Peace APRN Follow-up Appointment Please call our clinic at [phone] to schedule a follow up appointment with [...] attestation - Sara Mendez MD - 03/26/2020 7976 EDT I saw and examined the patient and discussed with the resident/medical student/EXPRESSIVE MUSIC THERAPIST team. I agree with the findings and plan of care documented in the resident's/medical student's/EXPRESSIVE MUSIC THERAPIST's note. Sara Mendez Division of General Surgery [...] ready likely next 24-48 hours. agency is [facility]. Ami Gaona RN CCM [id number] * Korin Srivastava MD - 03/25/2020 1226 EDT Blue Surgery Progress Note Chief complaint: [...] General Surgery PGY2 [id number] * Es Peace, FLY WINDER - 03/24/2020 0822 EDT Surgery Daily Progress Note Patient: Jasbir Kate Admit Date: 03/17/2020 Date of Service: 03/24/2020 POD: 7 (03/17/2020) Procedure: Laparoscopic hand assisted sigmoid colectomy with rigid proctoscopy and flexible sigmoidoscopy CC: Colovesical fistula 24 Hour Events: ?? NGT removed ?? Afebrile; HDS Subjective: Mr. Ktae had a great night and was able [...] fistula Added automatically from request for surgery [id number] ??? Diverticulitis Added automatically from request for surgery [id number] Jasbir Kate is a 79 y.o. male [...] Enoxaparin Es Peace APRN 03/24/2020 8:22 Pager #[phone] * Thania Landaverde - 03/23/2020 1401 EDT Nutrition Note: Reason for Assessment: NPO/CL greater than/equal to 5 days Patient identified at risk due to NPO/CL day 6 today. Sounds to be having return of bowel function,NGT removed. Will continue to follow to see if needs full nutrition assessment. Thania Landaverde RD (Betsy), CD, CNSC B6 Dietitian Pager: [phone] * Jaguar Liang MD - 03/23/2020 0719 [...] attestation - Sara Mendez MD - 03/23/2020 7891 EDT Check drain creatinine, if ok, pull drain. I saw and examined the patient and discussed with the resident/medical student/EXPRESSIVE MUSIC THERAPIST team. I agree with the findings and plan of care documented in the resident's/medical student's/EXPRESSIVE MUSIC THERAPIST's note. Sara Mendez Division of General Surgery Colon and Rectal Surgery * Kobi Es N, FLY WINDER - 03/22/2020 0719 EDT Surgery Daily Progress Note Patient: Jasbir [...] fistula Added automatically from request for surgery [id number] ??? Diverticulitis Added automatically from request for surgery [id number] ?? Jasbir Kate is a 79 y.o. [...] DVT Prophylaxis: Ambulate, SCD's, Enoxaparin Es Peace, SUPA 03/22/2020 7:19 Pager #[phone] Associated attestation - Sara Mendez MD - 03/22/2020 3690 EDT + BM, continued flatus. Still distended, but much improved from Saturday. Will trial clamping, but will be slow to progress diet. Cystogram today. I saw and examined the patient and discussed with the resident/medical student/EXPRESSIVE MUSIC THERAPIST team. I agree with the findings and plan of care documented in the resident's/medical student's/EXPRESSIVE MUSIC THERAPIST's note. Sara Mendez Division of General Surgery [...] awaiting return of bowel function NGT to WS, continue today given high output Cystogram today vs. tomorrow Keep kincadi catheter in place until after cystogram Continue Ceftriaxone/flagyl through today, then d/c Home flomax Aggressive IS, pulm toilet, and ambulate DVT ppx: Ambulate, SCDs, Lovenox 40mg qhs Dispo: Pending return of bowel function Korin Srivastava MD General Surgery PGY1 X-0710 Attestation statement: I saw and examined the patient with the resident/fellow. I agree with the findings and plan of care documented in the resident's/fellow's note. Abdomen soft, slightly distended. NGT today. IVF. Keep kincaid in. Cystogram tomorrow. -Jett Bone MD * Korin Srivastava MD - 03/20/2020 0923 EDT Blue Surgery Progress Note Chief complaint: Colovesical Fistula Procedure: 03/17/2020 - Laparoscopic hand assisted sigmoid colectomy with rigid proctoscopy and flexible sigmoidoscopy with placement of 19Fr luis armando drain. 24 hour events: -Nausea and emesis this AM Subjective: Henry nauseous this morning and spit up what [...] function Korin Srivastava MD General Surgery PGY1 X-0758 * Jaguar Liang MD - 03/19/2020 0745 EDT Blue Surgery Progress Note Chief complaint: [...] attestation - Sara Mendez MD - 03/19/2020 3203 EDT Softly distended, not nauseated. + distant bowel sounds. OOB today. If nausea/vomiting, NG tube. Keep kincaid for colovesicular fistula Cysto study Saturday/Saturday I saw and examined the patient and discussed with the resident/medical student/EXPRESSIVE MUSIC THERAPIST team. I agree with the findings and plan of care documented in the resident's/medical student's/EXPRESSIVE MUSIC THERAPIST's note. Sara Mendez Division of General Surgery Colon and Rectal Surgery * Muriel Gaona - 03/18/2020 7719 EDT Initial Case Management/Social Work Assessment and Discharge Plan/Readmission Risk Assessment REASON FOR ADMISSION: Colovesical fistula now POD 1 sigmoidectomy and fistula takedown Patient understands reason for admission: Yes PATIENT CONTACT INFO VERIFIED: Yes PATIENT ADDRESS VERIFIED: Yes([address] [place] [address]) LIVING ARRANGEMENTS AND ACCESSIBILITY ISSUES: Living Arrangements: Spouse / significant other Levels: 1 Bathroom located on bedroom level?: Yes What in home social supports are available to the patient? Spouse / significant other Is 24/7 care available? Yes ADVANCED DIRECTIVES, POA &/or COLST IN PLACE: Healthcare Directive: Yes, patient has advance directive for healthcare treatment Type of Healthcare Directive: Durable power of real estate associate attorney for health care Copy in Chart: Yes, new copy in paper chart @ [facility] DIRECTIVES FOR FINANCES: TRANSPORTATION: Transportation: Family, Self CULTURAL, LUTHERAN and/or LANGUAGE factors affecting health care/discharge planning: [...] Health Services: Nurse visit DME Provider: Pharmacy: [id number] - [place], [place] - [address] [facility] [address] [facility] [address] [place] [address] Home Health: Referral to [facility] per pt preference Other: POST HOSPITAL TRANSITION PLAN: Pt lives with supportive spouse. Active and independent at baseline.CM following and will assist with dc plans as needed. Ami Gaona RN [facility] 7910 03/18/2020 * Binhbisi Es Surya, FLY WINDER - 03/18/2020 0800 EDT Surgery Daily Progress [...] fistula Added automatically from request for surgery [id number] ??? Diverticulitis Added automatically from request for surgery [id number] Jasbir Kate is a 79 y.o. male [...] DVT Prophylaxis: Ambulate, SCD's, Enoxaparin at Es Surya Peace, FLY WINDER 03/18/2020 8:00 Pager #[phone] Associated attestation - Sara Mendez MD - 03/19/2020 0804 EDT Distended, but minimally tender. Making good urine. No further fevers, treating UTI (present on admission from colovesicular fistula). I saw and examined the patient and discussed with the resident/medical student/EXPRESSIVE MUSIC THERAPIST team. I agree with the findings and plan of care documented in the resident's/medical student's/EXPRESSIVE MUSIC THERAPIST's note. Sara Mendez Division of General Surgery Colon and Rectal Surgery * Korin Srivastava MD - 03/17/2020 2077 EDT SURGERY POST-OP CHECK SUBJECTIVE: Is having lower abdominal pain near his incision, but states the pain has been relatively well controlled. Has not been OOB. Not passing flatus. Has tolerated sips of water without nauseaor vomiting. Henry chilled a couple hours ago, but feels [...] use Korin Srivastava MD 03/17/2020 15:55 Surgical Supervisor Liquefaction Pager #[phone] documented in this encounter H&P Notes * Sara Menedz MD - 03/17/2020 2011 EDT The preoperative history and physical which [...] been seen by the urology department at [facility] with Cathryn Monzon. She did a CT [...] 25 years ago but has about a 45-gjqk-gcut history. drinks wine daily. 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 He goes to the gym 3 times a week and either sits on the bike or the elliptical machine. He denies any chest pain with exertion, but does have some shortness of breath ifhe walks out 2 flights of stairs ?? Colonoscopy was about 2 to 3 years ago at [facility]. He states it was normal. [...] screened at designated points of entry to [facility] Patient and Family will be [...] to: PreOp TL, PreOp bedside RN, PACU support services rep, Anesthesia and Surgeon. Managers as needed. ??? [...] dirty?? ) RN to receive patient from [facility] room in Droplet Precaution PPE and transport patient to designated room. Ensure patient is wearing a mask prior to transport. ??? PreOp Screening RN to document using [email or web address] smart phrase (.SWACOVIDS) ??? If patient is [...] unless special circumstances (Child, cognitive impairment, and immunology specialist). Pt temp: 36.5 Visitor Temp: Visitor Name: [...] surgeon consult No children <16 yo in [facility]. * OR Surgeon - Sara Mendez MD - 03/17/2020 0000 EDT OPERATIVE REPORT SERVICE DATE: 03/17/2020 SURGEON: Sara Mendez MD FLUX TUBE ATTENDANT: Es Peace APRN (No qualified resident was [...] extensively and ensured hemostasis. We left a 19-Dominican Luis Armando drain from the left lower [...] AM / Sara Mendez MD jn Confirmation: [id number] Dictation ID: [id number] documented in this encounter Miscellaneous Notes * Plan of Care - Rosalina Corona RN - 03/26/2020 1132 EDT Nursing Discharge Note D: Patient noted with discharge orders to: home. A: Prescriptions e-scripted. Reviewed discharge instructions and prescriptions with Patient. IV d/c'd. Belongings collected and sent home with patient. Report called to Jaja . Transition of care & AVS faxed. [...] RLQ side only. Gauze in place overold site. Action: Advanced pt to clear liquid [...] hand assisted sigmoid colectomy. NGT removed by MD this afternoon. Pt reporting passing flatus, having [...] Care - Renita Reid RN - 03/23/2020 0419 EDT Problem: Daily Care Plan Goals Goal: [...] Care - Keisha Shelley RN - 03/22/2020 4431 EDT Data: Pt A+Ox3. Denies pain throughout [...] Care - Renita Reid RN - 03/22/2020 0273 EDT Problem: Daily Care Plan Goals Goal: [...] Care - Moises Dent RN - 03/21/2020 2435 EDT Data: Pt on POD#4 from laparoscopic [...] Plan Documentation Outcome: Ongoing Flowsheets (Taken 03/19/2020 0741) Area of Focus: GI//Elimination Goal This Shift: [...] 18:16 * Brief Op Note - Es Peace APRN - 03/17/2020 0754 EDT Date: 03/17/2020 Location: [facility] OR Name: Jasbir Kate, : 1940, Diagnosis Pre-op Diagnosis * Colovesical fistula [N32.1] * Diverticulitis [K57.92] Post-op Diagnosis * Colovesical fistula [N32.1] * Diverticulitis [K57.92] Procedures Diagnostic laparoscopy with possible sigmoid colectomy 33441 - FL LAP,SURG,COLECTOMY, PARTIAL, W/ANAST Laparoscopic hand assisted sigmoid colectomy with rigid proctoscopy and flexible sigmoidoscopy withplacement of 19Fr luis armando drain. Surgeons * Sara Mendez MD - Primary Procedure Summary Anesthesia: General ASA: ASA status not filed in the log. Estimated Blood Loss: 50cc Total IV Fluids: 700 mL Urine Output: 50cc Sheryl LDAs: PIV Staff: Terrazzo Finisher: Valeria Gaspar RN Scrub Person: Adonay Madrid RN Patient Conveyor Weigher Operator: Alexandrea García Indications: Tony Kate is an [...] (No=0, Yes=1) Blood loss 0 (<500=0, 500-1000=1, 3958-5321=3, >2000=6) Duration of procedure 1(<2:00=0, 2:00-2:59=1, 3:00-3:59=2, >4:00=4) TOTAL: 6 Body mass index is 27.13 kg/m??. documented in this encounter Plan of Treatment Upcoming Encounters Date Type Department Care Team (Late st Contact Info) Description 08/25/2024 11:00 EDT Procedure visit [facility] [address] [place] [address] Ryan Shields MD [address] [place] [address] [address] [place] [phone] Scheduled Referrals Name Type Priority Associated Diagnoses [...] 10 - 26 mg/dL 03/24/2020 6:25 EDT [facility] Blood VENOUS BLOOD / Unknown Venipuncture / Unknown 03/24/2020 5:36 EDT 03/24/2020 5:56 EDT Bahman Perez MD CHEMISTRY & BLOOD GA S ORDERABLES Performing Organization Address [facility] Co de Phone Number [facility] [address] [place] [address] * (ABNORMAL) CALCIUM (03/24/2020 5:36 EDT) Calcium 8.2(L) 8.5 - 10.5 mg/dL 03/24/2020 6:25 EDT [facility] Calculated Calcium 9.2 8.5 - 10.5 mg/dL 03/24/2020 6:25 EDT [facility] Blood VENOUS BLOOD / Unknown Venipuncture / Unknown 03/24/2020 5:36 EDT 03/24/2020 5:56 EDT Bahman Perez MD CHEMISTRY & BLOOD GA S ORDERABLES Performing Organization Address City/[facility] Co de Phone Number [facility] [address] [place] [address] * (ABNORMAL) COMPLETE BLOOD COUNT AND DIFFERENTIAL (03/24/2020 5:36 EDT) WBC 8.68 4.00 - 10.40 K/cmm 03/24/2020 6:02 [facility] RBC 4.38 4.36 - 5.78 M/cmm 03/24/2020 6:02 [facility] Hemoglobin 14.1 13.8 - 17.3 gm/dL 03/24/2020 6:02 [facility] HCT 42.2 39.5 - 50.2 % 03/24/2020 6:02 [facility] MCV 96(H) 81 - 95 fl 03/24/2020 6:02 [facility] MCH 32.2 27.6 - 33.0 pg 03/24/2020 6:02 [facility] MCHC 33.4 32.8 - 36.4 gm/dL 03/24/2020 6:02 [facility] RDW-CV 12.2 <14.2 % 03/24/2020 6:02 [facility] RDW-SD 43.7 <46.0 fl 03/24/2020 6:02 [facility] PLT 265 141 - 377 K/cmm 03/24/2020 6:02 [facility] MPV 10.2 9.5 - 12.7 fl 03/24/2020 6:02 [facility] % Neutrophils 72.3 % 03/24/2020 6:02 [facility] % Lymphocytes 17.1 % 03/24/2020 6:02 [facility] % Monocytes 7.1 % 03/24/2020 6:02 [facility] % Eosinophils 2.6 % 03/24/2020 6:02 [facility] % Basophils 0.3 % 03/24/2020 6:02 [facility] % Immature Grans 0.6 % 03/24/20 20 6:02 [facility] Absolute Neutrophils 6.27 2.20 - 8.85 K/cmm 03/24/2020 6:02 [facility] Absolute Lymphocytes 1.48 1.09 - 3.30 K/cmm 03/24/2020 6:02 T [facility] Absolute Monocytes 0.62 0.10 - 0.80 K/cmm 03/24/2020 6:02 T [facility] Absolute Eosinophils 0.23 0.03 - 0.61 K/cmm 03/24/2020 6:02 [facility] ABS Basophils 0.03 0.01 - 0.11 K/cm 03/24/2020 6:02 [facility] Absolute Immature Grans 0.05 0.00 - 0.06 K/cm 03/24/2020 6:02 [facility] Type of Differential: Auto 03/24/2020 6:02 [facility] Blood VENOUS BLOOD / Unknown Venipuncture / Unknown 03/24/2020 5:36 EDT 03/24/2020 5:54 EDT Bahman Perez MD PACKAGES & DNA PROBE ORDERABLES Performing Organization Address [facility] de Phone Number [facility] [address] [place] [address] * CREATININE (03/24/2020 5:36 EDT) Creatinine 0.66 0.66 - 1.25 mg/dL 03/24/2020 6:25 EDT [facility] eGFR 93 >60 mL/min/1.7 3m2 03/24/2020 6:25 T [facility] Comment:eGFR calculated ernesto g CKD-EPI equation for non- Americans. Multiply eGFR by 1.16 for patients. Blood VENOUS BLOOD / Unknown Venipuncture / Unknown 03/24/2020 5:36 EDT 03/24/2020 5:56 EDT Bahman Perez MD CHEMISTRY & BLOOD GA S ORDERABLES Performing Organization Address [facility] Co de Phone Number [facility] [address] [place] [address] * ELECTROLYTES (03/24/2020 5:36 EDT) Sodium 139 136 - 145 mEq/L 03/24/2020 6:25 EDT [facility] Potassium 3.9 3.5 - 5.0 mEq/L 03/24/2020 6:25 EDT [facility] Chloride 108 96 - 110 mEq/L 03/24/2020 6:25 EDT [facility] CO2 Total 23 22 - 32 mEq/L 03/24/2020 6:25 EDT [facility] Blood VENOUS BLOOD / Unknown Venipuncture / Unknown 03/24/2020 5:36 EDT 03/24/2020 5:56 EDT Bahman Perez MD CHEMISTRY & BLOOD GA S ORDERABLES Performing Organization Address [facility]/ZIP Co de Phone Number [facility] [address] [place] [address] * MAGNESIUM (03/24/2020 5:36 EDT) Magnesium 2.4 1.7 - 2.8 mg/dL 03/24/2020 6:25 EDT [facility] Blood VENOUS BLOOD / Unknown Venipuncture / Unknown 03/24/2020 5:36 EDT 03/24/2020 5:56 EDT Bahman Perez MD CHEMISTRY & BLOOD GA S ORDERABLES Performing Organization Address [facility] de Phone Number [facility] [address] [place] [address] * CREATININE, FLUID (03/23/2020 12:34 EDT) Creatinine, Fluid 0.66 See Note mg/dL 03/23/2020 14:55 EDT [facility] Comment: Peritoneal Fluid Reference range unavailable. Clinical correlation required. This Fluid Creatinine assay was developed and its performance characteristics determined by [facility]. ??It has not been cleared or approved by the [place] Food and Drug Administration. Fluid PERITONEAL FLUID / Unknown 03/23/2020 12:34 EDT 03/23/2020 14:35 EDT Jaguar Liang MD GEN LAB UNIT COLLECT ORDERABLES Performing Organization Address City/[facility]/ZIP Co de Phone Number [facility] [address] [place] [address] * HN LAB CBC SMEAR REVIEW (03/23/2020 7:48 EDT) Differential Comment Slide was examined by a technologist to verify the WBC and/or platelet count. 03/23/2020 8:42 EDT [facility] Blood VENOUS BLOOD / Unknown Venipuncture / Unknown 03/23/2020 7:48 EDT 03/23/2020 8:05 EDT Clayton Reynoso MD HEMATOLOGY & PF4 OR DERABLES Performing Organization Address [facility] Co de Phone Number [facility] [address] [place] [address] * (ABNORMAL) COMPLETE BLOOD COUNT AND DIFFERENTIAL (03/23/2020 7:48 EDT) WBC 10.38 4.00 - 10.40 K/cmm 03/23/2020 8:43 [facility] RBC 4.91 4.36 - 5.78 M/cmm 03/23/2020 8:43 [facility] Hemoglobin 16.0 13.8 - 17.3 gm/dL 03/23/2020 8:43 [facility] HCT 46.9 39.5 - 50.2 % 03/23/2020 8:43 [facility] MCV 96(H) 81 - 95 fl 03/23/2020 8:43 [facility] MCH 32.6 27.6 - 33.0 pg 03/23/2020 8:43 [facility] MCHC 34.1 32.8 - 36.4 gm/dL 03/23/2020 8:43 [facility] RDW-CV 12.3 <14.2 % 03/23/2020 8:43 [facility] RDW-SD 42.5 <46.0 fl 03/23/2020 8:43 [facility] PLT 03/23/2020 8:43 [facility] Comment:Unreportable due to presence of platelet clumps. MPV 03/23/2020 8:43 [facility] Comment:Not Available % Neutrophils 77.3 % 03/23/2020 8:43 [facility] % Lymphocytes 13.8 % 03/23/2020 8:43 [facility] % Monocytes 6.8 % 03/23/2020 8:43 [facility] % Eosinophils 1.2 % 03/23/2020 8:43 [facility] % Basophils 0.4 % 03/23/2020 8:43 [facility] % Immature Grans 0.5 % 03/23/20 20 8:43 [facility] Absolute Neutrophils 8.03 2.20 - 8.85 K/cmm 03/23/2020 8:43 [facility] Absolute Lymphocytes 1.43 1.09 - 3.30 K/cmm 03/23/2020 8:43 [facility] Absolute Monocytes 0.71 0.10 - 0.80 K/cmm 03/23/2020 8:43 [facility] Absolute Eosinophils 0.12 0.03 - 0.61 K/cmm 03/23/2020 8:43 [facility] ABS Basophils 0.04 0.01 - 0.11 K/cmm 03/23/2020 8:43 [facility] Absolute Immature Grans 0.05 0.00 - 0.06 K/cmm 03/23/2020 8:43 T [facility] Type of Differential: Auto 03/23/2020 8:43 [facility] Blood VENOUS BLOOD / Unknown Venipuncture / Unknown 03/23/2020 7:48 EDT 03/23/2020 8:05 EDT Clayton Reynoso MD PACKAGES & DNA PROB E ORDERABLES [facility] [address] [place] [address] * CALCIUM (03/23/2020 7:48 EDT) Calcium 8.7 8.5 - 10.5 mg/dL 03/23/2020 8:14 EDT [facility] Calculated Calcium 9.0 8.5 - 10.5 mg/dL 03/23/2020 8:14 EDT [facility] Blood VENOUS BLOOD / Unknown Venipuncture / Unknown 03/23/2020 7:48 EDT 03/23/2020 7:55 EDT Clayton Reynoso MD CHEMISTRY & BLOOD G ORDERABLES Performing Organization Address City/[facility] Co de Phone Number [facility] [address] [place] [address] * MAGNESIUM (03/23/2020 7:48 EDT) Magnesium 2.5 1.7 - 2.8 mg/dL 03/23/2020 8:14 EDT [facility] Blood VENOUS BLOOD / Unknown Venipuncture / Unknown 03/23/2020 7:48 EDT 03/23/2020 7:55 EDT Clayton Reynoso MD CHEMISTRY & BLOOD G ORDERABLES Performing Organization Address City/[facility] Co de Phone Number [facility] [address] [place] [id number] * (ABNORMAL) ELECTROLYTES (03/23/2020 7:48 EDT) Sodium 143 136 - 145 mEq/L 03/23/2020 8:14 EDT [facility] Potassium 3.2(L) 3.5 - 5.0 mEq/L 03/23/2020 8:14 EDT [facility] Chloride 109 96 - 110 mEq/L 03/23/2020 8:14 EDT [facility] CO2 Total 25 22 - 32 mEq/L 03/23/2020 8:14 EDT [facility] Blood VENOUS BLOOD / Unknown Venipuncture / Unknown 03/23/2020 7:48 EDT 03/23/2020 7:55 EDT Clayton Reynoso MD CHEMISTRY & BLOOD G ORDERABLES Performing Organization Address [facility] de Phone Number [facility] [address] [place] [address] * (ABNORMAL) CREATININE (03/23/2020 7:48 EDT) Creatinine 0.62(L) 0.66 - 1.25 mg/dL 03/23/2020 8:14 EDT [facility] eGFR 95 >60 mL/min/1.7 3m2 03/23/2020 8:14 EDT [facility] Comment:eGFR calculated ernesto cee CKD-EPI equation for non- Americans. Multiply eGFR by 1.16 for patients. Blood VENOUS BLOOD / Unknown Venipuncture / Unknown 03/23/2020 7:48 EDT 03/23/2020 7:55 EDT Clayton Reynoso MD CHEMISTRY & BLOOD G ORDERABLES Performing Organization Address [facility] Co de Phone Number [facility] [address] [place] [address] * BUN (03/23/2020 7:48 EDT) BUN 16 10 - 26 mg/dL 03/23/2020 8:14 EDT [facility] Blood VENOUS BLOOD / Unknown Venipuncture / Unknown 03/23/2020 7:48 EDT 03/23/2020 7:55 EDT Clayton Reynoso MD CHEMISTRY & BLOOD G ORDERABLES Performing Organization Address [facility] de Phone Number [facility] [address] [place] [address] * FL CYSTOGRAM (03/22/2020 9:43 EDT) Anatomical [...] bladder Comparison: CT abdomen pelvis 12/14/2019. FINDINGS: [employer] KUB film of the abdomen shows the [...] frombladder Comparison: CT abdomen pelvis 12/14/2019. FINDINGS: [employer] KUB film of the abdomen shows the [...] findings. Korin Srivastava MD IMG FLUOROSCOPY [facility] * (ABNORMAL) COMPLETE BLOOD COUNT (03/19/2020 6:39 EDT) WBC 16.17(H) 4.00 - 10.40 K/cmm 03/19/2020 6:54 EDT [facility] RBC 5.19 4.36 - 5.78 M/cmm 03/19/2020 6:54 EDT [facility] Hemoglobin 16.7 13.8 - 17.3 gm/dL 03/19/2020 6:54 EDT [facility] HCT 49.2 39.5 - 50.2 % 03/19/2020 6:54 EDT [facility] MCV 95 81 - 95 fl 03/19/2020 6:54 EDT [facility] MCH 32.2 27.6 - 33.0 pg 03/19/2020 6:54 EDT [facility] MCHC 33.9 32.8 - 36.4 gm/dL 03/19/2020 6:54 EDT [facility] RDW-CV 12.4 <14.2 % 03/19/2020 6:54 EDT [facility] RDW-SD 43.0 <46.0 fl 03/19/2020 6:54 T [facility] PLT 233 141 - 377 K/cmm 03/19/2020 6:54 EDT [facility] MPV 10.4 9.5 - 12.7 fl 03/19/2020 6:54 T [facility] Blood VENOUS BLOOD / Unknown Venipuncture / Unknown 03/19/2020 6:39 EDT 03/19/2020 6:44 EDT Clayton Reynoso MD HEMATOLOGY & PF4 OR DERABLES [facility] [address] [place] [address] * (ABNORMAL) ELECTROLYTES (03/19/2020 6:39 EDT) Sodium 138 136 - 145 mEq/L 03/19/2020 7:21 EDT [facility] Potassium 4.1 3.5 - 5.0 mEq/L 03/19/2020 7:21 EDT [facility] Chloride 106 96 - 110 mEq/L 03/19/2020 7:21 EDT [facility] CO2 Total 20(L) 22 - 32 mEq/L 03/19/2020 7:21 EDT [facility] Blood VENOUS BLOOD / Unknown Venipuncture / Unknown 03/19/2020 6:39 EDT 03/19/2020 6:51 EDT Clayton Reynoso MD CHEMISTRY & BLOOD G ORDERABLES Performing Organization Address City/[facility]/ZIP Co de Phone Number [facility] [address] [place] [address] * (ABNORMAL) CREATININE (03/19/2020 6:39 EDT) Creatinine 0.63(L) 0.66 - 1.25 mg/dL 03/19/2020 7:21 EDT [facility] eGFR 94 >60 mL/min/1.7 3m2 03/19/2020 7:21 EDT [facility] Comment:eGFR calculated ernesto cee CKD-EPI equation for non- Americans. Multiply eGFR by 1.16 for patients. Blood VENOUS BLOOD / Unknown Venipuncture / Unknown 03/19/2020 6:39 EDT 03/19/2020 6:51 EDT Clayton Reynoso MD CHEMISTRY & BLOOD G ORDERABLES Performing Organization Address City/[facility]/ZIP Co de Phone Number [facility] [address] [place] [address] * BUN (03/19/2020 6:39 EDT) BUN 14 10 - 26 mg/dL 03/19/2020 7:21 EDT [facility] Blood VENOUS BLOOD / Unknown Venipuncture / Unknown 03/19/2020 6:39 EDT 03/19/2020 6:51 EDT Clayton Reynoso MD CHEMISTRY & BLOOD G ORDERABLES [facility] [address] [place] [address] * (ABNORMAL) COMPLETE BLOOD COUNT (03/18/2020 18:25 EDT) WBC 14.98(H) 4.00 - 10.40 K/cmm 03/18/2020 18:39 EDT [facility] RBC 4.98 4.36 - 5.78 M/cmm 03/18/2020 18:39 EDT [facility] Hemoglobin 16.4 13.8 - 17.3 gm/dL 03/18/2020 18:39 T [facility] HCT 47.5 39.5 - 50.2 % 03/18/2020 18:39 T [facility] MCV 95 81 - 95 fl 03/18/2020 18:39 T [facility] MCH 32.9 27.6 - 33.0 pg 03/18/2020 18:39 T [facility] MCHC 34.5 32.8 - 36.4 gm/dL 03/18/2020 18:39 T [facility] RDW-CV 12.5 <14.2 % 03/18/2020 18:39 T [facility] RDW-SD 43.9 <46.0 fl 03/18/2020 18:39 T [facility] PLT 203 141 - 377 K/cmm 03/18/2020 18:39 T [facility] MPV 10.3 9.5 - 12.7 fl 03/18/2020 18:39 T [facility] Blood VENOUS BLOOD / Unknown Venipuncture / Unknown 03/18/2020 18:25 EDT 03/18/2020 18:31 EDT Clayton Reynoso MD HEMATOLOGY & PF4 OR DERABLES [facility] [address] [place] [address] * (ABNORMAL) COMPLETE BLOOD COUNT (03/18/2020 16:02 EDT) WBC 16.21(H) 4.00 - 10.40 K/cmm 03/18/2020 16:52 EDT [facility] RBC 5.27 4.36 - 5.78 M/cmm 03/18/2020 16:52 EDT [facility] Hemoglobin 17.2 13.8 - 17.3 gm/dL 03/18/2020 16:52 EDT [facility] HCT 50.9(H) 39.5 - 50.2 % 03/18/2020 16:52 EDT [facility] MCV 97(H) 81 - 95 fl 03/18/2020 16:52 EDT [facility] MCH 32.6 27.6 - 33.0 pg 03/18/2020 16:52 EDT [facility] MCHC 33.8 32.8 - 36.4 gm/dL 03/18/2020 16:52 EDT [facility] RDW-CV 12.5 <14.2 % 03/18/2020 16:52 EDT [facility] RDW-SD 45.0 <46.0 fl 03/18/2020 16:52 EDT [facility] PLT 226 141 - 377 K/cmm 03/18/2020 16:52 EDT [facility] MPV 10.4 9.5 - 12.7 fl 03/18/2020 16:52 EDT [facility] Blood VENOUS BLOOD / Unknown Venipuncture / Unknown 03/18/2020 16:02 EDT 03/18/2020 16:32 EDT Es Peace NP HEMATOLOGY & PF4 ORD ERABLES [facility] [address] [place] [address] * (ABNORMAL) CALCIUM (03/18/2020 6:55 EDT) [facility] Calcium 8.4(L) 8.5 - 10.5 mg/dL 03/18/2020 18:27 EDT [facility] Calculated Calcium 8.9 8.5 - 10.5 mg/dL 03/18/2020 18:27 EDT [facility] Blood VENOUS BLOOD / Unknown Venipuncture / Unknown 03/18/2020 6:55 EDT 03/18/2020 7:04 EDT Clayton Reynoso MD CHEMISTRY & BLOOD G ORDERABLES Performing Organization Address [facility] Co de Phone Number [facility] [address] [place] [address] * MAGNESIUM (03/18/2020 6:55 EDT) [facility] Magnesium 2.1 1.7 - 2.8 mg/dL 03/18/2020 18:27 EDT [facility] Blood VENOUS BLOOD / Unknown Venipuncture / Unknown 03/18/2020 6:55 EDT 03/18/2020 7:04 EDT Clayton Reynoso MD CHEMISTRY & BLOOD G ORDERABLES Performing Organization Address City/[facility] Co de Phone Number [facility] [address] [place] [id number] * (ABNORMAL) COMPLETE BLOOD COUNT AND DIFFERENTIAL (03/18/2020 6:55 EDT) [facility] WBC 11.94(H) 4.00 - 10.40 K/cmm 03/18/2020 7:14 EDT [facility] RBC 4.65 4.36 - 5.78 M/cmm 03/18/2020 7:14 [facility] Hemoglobin 15.3 13.8 - 17.3 gm/dL 03/18/2020 7:14 [facility] HCT 44.3 39.5 - 50.2 % 03/18/2020 7:14 [facility] MCV 95 81 - 95 fl 03/18/2020 7[facility] MCH 32.9 27.6 - 33.0 pg 03/18/2020 7:14 [facility] MCHC 34.5 32.8 - 36.4 gm/dL 03/18/2020 7:14 [facility] RDW-CV 12.5 <14.2 % 03/18/2020 7:14 [facility] RDW-SD 43.6 <46.0 fl 03/18/2020 7:14 [facility] PLT 184 141 - 377 K/cmm 03/18/2020 7:14 [facility] MPV 10.0 9.5 - 12.7 fl 03/18/2020 7:14 [facility] % Neutrophils 76.9 % 03/18/2020 7:14 [facility] % Lymphocytes 14.4 % 03/18/2020 7:14 [facility] % Monocytes 8.1 % 03/18/2020 7:14 [facility] % Eosinophils 0.1 % 03/18/2020 7:14 [facility] % Basophils 0.2 % 03/18/2020 7:14 [facility] % Immature Grans 0.3 % 03/18/20 7:14 [facility] Absolute Neutrophils 9.18(H) 2.20 - 8.85 K/cmm 03/18/2020 7:14 [facility] Absolute Lymphocytes 1.72 1.09 - 3.30 K/cmm 03/18/2020 7:14 [facility] Absolute Monocytes 0.97(H) 0.10 - 0.80 K/cmm 03/18/2020 7:14 [facility] Absolute Eosinophils 0.01(L) 0.03 - 0.61 K/cmm 03/18/2020 7:14 [facility] ABS Basophils 0.02 0.01 - 0.11 K/cmm 03/18/2020 7:14 [facility] Absolute Immature Grans 0.04 0.00 - 0.06 K/cmm 03/18/2020 7:14 [facility] Type of Differential: Auto 03/18/2020 7:14 EDT [facility] Blood VENOUS BLOOD / Unknown Venipuncture / Unknown 03/18/2020 6:55 EDT 03/18/2020 7:06 EDT Es Peace EXPRESSIVE MUSIC THERAPIST PACKAGES & DNA PROBE ORDERABLES Performing Organization Address City/[facility] Co de Phone Number [facility] [address] [place] [address] * CREATININE (03/18/2020 6:55 EDT) Creatinine 0.79 0.66 - 1.25 mg/dL 03/18/2020 7:35 EDT [facility] eGFR 86 >60 mL/min/1.7 3m2 03/18/2020 7:35 EDT [facility] Comment:eGFR calculated ernesto cee CKD-EPI equation for non- Americans. Multiply eGFR by 1.16 for patients. Blood VENOUS BLOOD / Unknown Venipuncture / Unknown 03/18/2020 6:55 EDT 03/18/2020 7:04 EDT Es Peace EXPRESSIVE MUSIC THERAPIST CHEMISTRY & BLOOD GA S ORDERABLES Performing Organization Address [facility] Co de Phone Number [facility] [address] [place] [address] * BUN (03/18/2020 6:55 EDT) BUN 12 10 - 26 mg/dL 03/18/2020 7:35 EDT [facility] Blood VENOUS BLOOD / Unknown Venipuncture / Unknown 03/18/2020 6:55 EDT 03/18/2020 7:04 EDT Es Peace EXPRESSIVE MUSIC THERAPIST CHEMISTRY & BLOOD GA S ORDERABLES Performing Organization Address [facility]/ZIP Co de Phone Number [facility] [address] [place] [address] * (ABNORMAL) ELECTROLYTES (03/18/2020 6:55 EDT) Sodium 135(L) 136 - 145 mEq/L 03/18/2020 7:35 EDT [facility] Potassium 4.2 3.5 - 5.0 mEq/L 03/18/2020 7:35 EDT [facility] Chloride 104 96 - 110 mEq/L 03/18/2020 7:35 EDT [facility] CO2 Total 23 22 - 32 mEq/L 03/18/2020 7:35 EDT [facility] Blood VENOUS BLOOD / Unknown Venipuncture / Unknown 03/18/2020 6:55 EDT 03/18/2020 7:04 EDT Es Peace EXPRESSIVE MUSIC THERAPIST CHEMISTRY & BLOOD GA S ORDERABLES [facility] [address] [place] [address] * (ABNORMAL) SCREENING GLUCOSE (03/18/2020 6:55 EDT) Glucose, Screening 107(H) 70 - 100 mg/dL 03/18/2020 7:35 EDT [facility] Blood VENOUS BLOOD / Unknown Venipuncture / Unknown 03/18/2020 6:55 EDT 03/18/2020 7:04 EDT Es Peace NP CHEMISTRY & BLOOD GA S ORDERABLES Performing Organization Address City/[facility]/ZIP Co de Phone Number [facility] [address] [place] [address] * BACTERIAL CULTURE, BLOOD (03/17/2020 18:20 EDT) Organism ID No Growth at 5 days 03/22/2020 19:15 EDT [facility] Blood VENOUS BLOOD / Unknown Blood Culture / Unknown 03/17/2020 18:20 EDT 03/17/2020 19:10 EDT Jaguar Liang MD MICROBIOLOGY - GENER AL ORDERABLES [facility] [address] [place] [address] * BACTERIAL CULTURE, BLOOD (03/17/2020 18:13 EDT) Organism ID No Growth at 5 days 03/22/2020 19:15 EDT [facility] Blood VENOUS BLOOD / Unknown Blood Culture / Unknown 03/17/2020 18:13 EDT 03/17/2020 19:10 EDT Jaguar Liang MD MICROBIOLOGY - GENER AL ORDERABLES Performing Organization Address [facility] Co de Phone Number [facility] [address] [place] [address] * BACTERIAL CULTURE, URINE (03/17/2020 17:59 EDT) Organism ID No Growth 03/19/2020 8:17 EDT [facility] Urine URINE SPECIMEN OBTAINED BY SINGLE CATHETERIZATION OF URINARY BLADDER / Unknown Urine Collect / Unknown 03/17/2020 17:59 EDT 03/17/2020 18:35 EDT Jaguar Liang MD MICROBIOLOGY - GENER AL ORDERABLES Performing Organization Address [facility] Co de Phone Number [facility] [address] [place] [address] * (ABNORMAL) URINE CHEMICAL (DIP) & SEDIMENT (MICRO) WITH REFLEX TO CULTURE (03/17/2020 17:59 EDT) Color UA Yellow Colorless, Yellow 03/17/2020 18:35 EDT [facility] Clarity UA Clear Clear 03/17/2020 18:35 EDT [facility] Glucose UA Negative Negative 03/17/2020 18:35 T [facility] Bilirubin UA Negative Negative 03/17/2020 18:35 EDT [facility] Ketones UA 1+(A) Negative 03/17/2020 18:35 EDT [facility] Specific Emily, Urine 1.028 1.001 - 1.035 03/17/2020 18:35 EDT [facility] Blood UA 3+(A) Negative 03/17/2020 18:35 EDT [facility] Urobilinogen UA Normal Normal mg/dL 05/21/2 020 18:35 [facility] Nitrite UA Negative Negative 03/17/2020 18:35 [facility] Leukocyte Esterase UA 2+(A) Negative 03/17/2020 18:35 [facility] Protein UA 2+(A) Negative 03/17/2020 18:35 [facility] pH, UA 6.0 4.6 - 8.0 03/17/2020 18:35 [facility] Urine RBC Count, Auto >50(A) 0 - 2 Cells/HPF 03/17/2020 18:35 [facility] Urine WBC Count, Auto >50(A) 0 - 3 Cells/HPF 03/17/2020 18:35 [facility] Urine Squamous Count, Auto None Seen None Seen Cells/HPF 03/17/2020 18:35 [facility] Urine Hyaline Cast Count, Auto <=10 <=10 Casts/LPF 03/17/2020 18:35 [facility] Urine Bacteria Count, Auto None Seen None Seen Bacteria/HPF 03/17/2020 18:35 [facility] Urine URINE SPECIMEN OBTAINED BY SINGLE CATHETERIZATION OF URINARY BLADDER / Unknown Urine Collect / Unknown 03/17/2020 17:59 EDT 03/17/2020 18:05 T Narrative [facility] - 03/17/2020 18:35 EDT A Urine Culture test has been reflexively ordered based on result criteria from the Urine Sediment Analysis. Urine Sediment Analysis results are unreliable on urines that are unrefrigerated for >2 hrs or refrigerated >8 hrs. Jaguar Liang MD URINALYSIS ORDERABLE S [facility] [address] [place] [address] * SURGICAL PATHOLOGY (03/17/2020 10:30 EDT) Final Diagnosis A. 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 - Negative for dysplasia and malignancy. - Surgical resection margins viable. 03/22/2020 15:14 [facility] at 1514 Attestation There was significant resident/fellow involvement in the diagnostic evaluation of this case. By the signature below, the attending physician certifies that they have personally conducted a gross and/or microscopic examination of the described specimens and rendered or confirmed the above diagnosis. 03/22/2020 15:14 [facility] at 1514 Clinical History Colovesical fistula; diverticulitis 03/22/2020 15:14 [facility] Gross Description A. [...] surrounding mesentery reveals lobulated, yellow cut surfaces. Residential Manager sections are submitted as follows: BLOCK HENSON A1- stapled margin, en face A2-A3- open margin, bisected, en face A4-A7- sections of diverticula A8- section of separate donut Kim Joel 03/18/2020 8:05 03/22/2020 15:14 T [facility] Resident/Vish w: Chance Crouch MD 03/22/2020 15:14 [facility] Scanned Images 03/22/2020 15:14 [facility] Tissue ENTIRE SIGMOID COLON / Unknown 03/17/2020 10:30 EDT 03/17/2020 16:33 EDT Sara Mendez MD PATHOLOGY ORDERABLES [facility] [address] [place] [address] documented in this encounter Visit Diagnoses Diagnosis [...] dose, On Tuyet 03/24/20 at 0945, Routine Given 03/24/2020 11:12 EDT 2,000 mg cefTRIAXone (ROCEPHIN) 2,000 mg in sodium chloride (NS MBP) 50 mL IVPB 2,000 mg, intravenous, Administer over 30 Minutes, DAILY, 5 doses, First dose on Tuyet 03/17/20 at 1815, Last dose on 03/21/20 at 0900, Routine Given 03/21/2020 9:18 EDT [...] at 100 mL/hr, intravenous, CONTINUOUS, Starting on Sat03/17/20 at 1315, Until Sat03/24/20 at 1718, Routine New Bag 03/24/2020 10:08 [...] intravenous, EVERY 5 MIN PRN, Starting on Sat03/17/20 at 1115, Until Tuyet 03/17/20 at 1343, [...] intravenous, EVERY 3 HOURS PRN, Starting on Tuyte 03/17/20 at 1353, Until 03/23/20 at 1258, [...] on Sat03/26/20 at 0900, Until Discontinued, Routine Given 03/26/2020 [...] Until 03/26/20 at 1410, Line Care, Routine tamsulosin (FLOMAX) capsule 0.4 mg 0.4 mg, oral, DAILY, First dose on 03/18/20 at 0900, Until Discontinued, Routine Given 03/26/2020 [...] Patient/family refused) 0031 (Given - Provider: Thania Nowak, VIVEK)0639 (Given - Provider: Thania Nowak, VIVEK)1350 (Given - Provider: Rosalina Corona, VIVEK)2019 (Given [...] 1 dose, On Sat03/24/20 at 0945, Routine 1112 (Given - Provider: Moises Dent, VIVEK) enoxaparin (LOVENOX) injection 40 mg 40 mg, subcutaneous, AT BEDTIME, First dose on Sat03/18/20 at 2100, Until Discontinued, Routine 203 (Given - Provider: Thania Nowak RN) 2019 [...] Corona, VIVEK) 0838 (Given - Provider: Rosalina Corona, VIVEK) Continuous Medication Order 03/24/2020 03/25/2020 03/26/2020 electrolyte-A (PLASMALYTE-A) solution (CANCELED) at 100 mL/hr, intravenous, CONTINUOUS, Starting on Tuyet 03/17/20 at 1315, Until Tuyet 03/24/20 at 1718, Routine 0719 (Rate Documented - Provider: Moises Dent RN)1008 (New Bag - Provider: Moises Dent RN)1725 (Completed - Provider: Antonio Inman RN) PRN [...] 02/26 documented in this encounter Care Teams Freight Representative Relationship Specialty Start Date End Date Kylie Ogles[address] [place] [address] PCP - General Internal Medicine - Primary Care 12/15/19 documented as of this encounter
--- OUTSIDE RECORDS SUMMARY | 2024-08-19 12:23 | XMS_ITS | Encounter Summary ---
Author Organization [facility] Address [address] [place] [address] Care Team Providers Care Plastic Tile Layer Name Role Phone Kylie Oglesby Primary Care Provider [phone] Reason for Visit * Auth/Cert Specialty Diagnoses / Procedures Referred By Kavitha burgos Referred To Contact Diagnoses Colovesical fistula Procedures UT LAP,SURG,COLECTOMY, PARTIAL, W/ANAST Diagnostic laparoscopy with possible sigmoid colectomy Referral ID Status Reason Start Date Expiration Date Visits Re quested Visits Authorized [id number] 1 1 Encounter Details Date Type Department Care Team (Late st Contact Info) Description 03/17/2020 8:25 EDT - 03/17/2020 12:35 EDT Surgery [facility] OR [address] [place] [address] [id number] Sara Mendez MD [address] [place] [address], [facility], Level [address] [place] [address] Diagnostic laparoscopy with possible sigmoid colectomy [76235 (CPT??)] Surgery Details Date/Time Status Location OR Service Patient Class Case Class Case Type Trauma Case? 03/17/20 0825 Posted [facility] OR MOR 14 General Surgery Admit H [...] Tobacco: Former Cigarettes 2 30 1 965 1994 Smokeless Tobacco: Never [...] 03/01/2020 Added automatically from request for surgery [id number] ??? Diverticulitis 03/01/2020 Added automatically from request for surgery [id number] Resolved Hospital Problems No resolved problems to display. Principal Procedure: Laparoscopic hand assisted sigmoid colectomy with rigid proctoscopy and flexible sigmoidoscopy with placement of 19Fr luis armando drain. Date: 03/17/2020 Secondary Procedures: None Hospital Course Tony Kaet was evaluated in the General Surgery clinic [...] Post Op Visit with Sara Mendez MD [facility] Surgery [facility] (--) [address] [facility] [address] Follow-up appointments and procedures Amb Consult/Follow Up Home Health Services I certify that this patient is under my care and that I, or another Medicare authorized non-physician practitioner (PA or TESTING MANAGER) or resident working with me, had a [id number]-ipjg encounter with this patient on this date: 03/25/2020 I further certify that the dphd-eo-xrzp encounter was in whole or in part related to the reason thepatient needs home health care.: Yes The patient has had a bbir-ya-tpra visit by me or one of my [...] Follow-up Appointment Please call our clinic at [phone] to schedule a follow up appointment with [...] attestation - Sara Mendez MD - 03/26/2020 0987 EDT I saw and examined the patient and discussed with the resident/medical student/TESTING MANAGER team. I agree with the findings and plan of care documented in the resident's/medical student's/TESTING MANAGER's note. Sara Mendez Division of General Surgery [...] Disposition Code Departure Means Destination Home-Health Care [facility] Home documented in this encounter Progress Notes * Muriel Gaona - 03/25/2020 1310 EDT CM Note Pt advancing diet; progressing with activity. He will dc home with SN and PT services when medically ready likely next 24-48 hours. agency is [facility]. Ami Gaona RN CCM [id number] * Korin Srivastava MD - 03/25/2020 0297 EDT Blue Surgery Progress Note Chief complaint: [...] General Surgery PGY2 X6298 * Es Peace, PRESS OPERATOR APPRENTICE - 03/24/2020 0822 EDT Surgery Daily Progress [...] fistula Added automatically from request for surgery [id number] ??? Diverticulitis Added automatically from request for surgery [id number] Jasbir Kate is a 79 y.o. male [...] Enoxaparin Es Peace APRN 03/24/2020 8:22 Pager #[phone] * Thania Landaverde - 03/23/2020 1401 EDT Nutrition Note: Reason for Assessment: NPO/CL greater than/equal to 5 days Patient identified at risk due to NPO/CL day 6 today. Sounds to be having return of bowel function,NGT removed. Will continue to follow to see if needs full nutrition assessment. Thania Landaverde RD (Betsy), CD, [facility] B6 Dietitian Pager: [phone] * Jaguar Liang MD - 03/23/2020 0794 EDT Blue Surgery Progress Note Chief complaint: [...] attestation - Sara Mendez MD - 03/23/2020 0129 EDT Check drain creatinine, if ok, pull drain. I saw and examined the patient and discussed with the resident/medical student/TESTING MANAGER team. I agree with the findings and plan of care documented in the resident's/medical student's/TESTING MANAGER's note. Sara Mendez Division of General Surgery Colon and Rectal Surgery * Es Peace, PRESS OPERATOR APPRENTICE - 03/22/2020 6282 EDT Surgery Daily Progress Note Patient: Jasbir [...] fistula Added automatically from request for surgery [id number] ??? Diverticulitis Added automatically from request for surgery [id number] ?? Jasbir Kate is a 79 y.o. [...] DVT Prophylaxis: Ambulate, SCD's, Enoxaparin Es Peace, PRESS OPERATOR APPRENTICE 03/22/2020 7:19 Pager #[phone] Associated attestation - Sara Mendez MD - 03/22/2020 2030 EDT + BM, continued flatus. Still distended, but much improved from Saturday. Will trial clamping, but will be slow to progress diet. Cystogram today. I saw and examined the patient and discussed with the resident/medical student/TESTING MANAGER team. I agree with the findings and plan of care documented in the resident's/medical student's/TESTING MANAGER's note. Sara Mendez Division of General Surgery [...] function Korin Srivastava MD General Surgery PGY1 X-0724 Attestation statement: I saw and examined the patient with the resident/fellow. I agree with the findings and plan of care documented in the resident's/fellow's note. Abdomen soft, slightly distended. NGT today. IVF. Keep kincaid in. Cystogram tomorrow. -Jett Bone MD * Korin Srivastava MD - 03/20/2020 2433 EDT Blue Surgery Progress Note Chief complaint: Colovesical Fistula Procedure: 03/17/2020 - Laparoscopic hand assisted sigmoid colectomy with rigid proctoscopy and flexible sigmoidoscopy with placement of 19Fr luis armando drain. 24 hour events: -Nausea and emesis this AM Subjective: [place] nauseous this morning and spit up what [...] the patient and discussed with the resident/medical student/TESTING MANAGER team. I agree with the findings and plan of care documented in the resident's/medical student's/TESTING MANAGER's note. Sara Mendez Division of General Surgery Colon and Rectal Surgery * Muriel Gaona - 03/18/2020 7457 EDT Initial Case Management/Social Work Assessment and Discharge Plan/Readmission Risk Assessment REASON FOR ADMISSION: Colovesical fistula now POD 1 sigmoidectomy and fistula takedown Patient understands reason for admission: Yes PATIENT CONTACT INFO VERIFIED: Yes PATIENT ADDRESS VERIFIED: Yes([address] [place] [address]) LIVING ARRANGEMENTS AND ACCESSIBILITY ISSUES: Living Arrangements: Spouse / significant other Levels: 1 Bathroom located on bedroom level?: Yes What in home social supports are available to the patient? Spouse / significant other Is 24/7 care available? Yes ADVANCED DIRECTIVES, POA &/or COLST IN PLACE: Healthcare Directive: Yes, patient has advance directive for healthcare treatment Type of Healthcare Directive: Durable power of assistant prosecuting attorney for health care Copy in Chart: Yes, new copy in paper chart @ [facility] DIRECTIVES FOR FINANCES: TRANSPORTATION: Transportation: Family, Self CULTURAL, SCIENTOLOGIST and/or LANGUAGE factors affecting health care/discharge planning: [...] Health Services: Nurse visit DME Provider: Pharmacy: [id number] - [place], [place] - [address] [facility] [address] [facility] [address] [place] [address] Home Health: Referral to [facility] per pt preference Other: POST HOSPITAL TRANSITION PLAN: Pt lives with supportive spouse. Active and independent at baseline.CM following and will assist with dc plans as needed. Ami Gaona RN CCM [id number] 03/18/2020 * Es Peace APRN - 03/18/2020 0800 EDT Surgery Daily Progress [...] Prophylaxis: Ambulate, SCD's, Enoxaparin at Es Peace, PRESS OPERATOR APPRENTICE 03/18/2020 8:00 Pager #[phone] Associated attestation - Sara Mendez MD - 03/19/2020 0346 EDT Distended, but minimally tender. Making good urine. No further fevers, treating UTI (present on admission from colovesicular fistula). I saw and examined the patient and discussed with the resident/medical student/TESTING MANAGER team. I agree with the findings and plan of care documented in the resident's/medical student's/TESTING MANAGER's note. Sara Mendez Division of General Surgery Colon and Rectal Surgery * Korin Srivastava MD - 03/17/2020 2999 EDT SURGERY POST-OP CHECK SUBJECTIVE: Is having lower abdominal pain near his incision, but states the pain has been relatively well controlled. Has not been OOB. Not passing flatus. Has tolerated sips of water without nauseaor vomiting. [place] chilled a couple hours ago, but feels [...] use Korin Srivastava MD 03/17/2020 15:55 Surgical Internal Auditor Pager #[phone] documented in this encounter H&P Notes * [...] been seen by the urology department at [facility] with Cathryn Monzon. She did [...] 25 years ago but has about a 61-xrqo-vlfm history. drinks wine daily. 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 He goes to the gym 3 times [...] screened at designated points of entry to [facility] Patient and Family will be screened again [...] to: PreOp TL, PreOp bedside RN, PACU engine dispatcher, Anesthesia and Surgeon. Managers as needed. ??? [...] unless special circumstances (Child, cognitive impairment, and bottom steep tender). Pt temp: 36.5 Visitor Temp: Visitor Name: [...] surgeon consult No children <16 yo in [facility]. * OR Surgeon - Sara Mendez MD - 03/17/2020 0000 EDT OPERATIVE REPORT SERVICE DATE: 03/17/2020 SURGEON: Sara Mendez MD JOINT RUNNER: Es Peace APRN (No qualified resident was [...] extensively and ensured hemostasis. We left a 19-Occitan Luis Armando drain from the left lower [...] AM / Sara Mendez MD jn Confirmation: [id number] Dictation ID: [id number] documented in this encounter Miscellaneous Notes * Plan of Care - Rosalina Corona RN - 03/26/2020 1132 EDT Nursing Discharge Note D: Patient noted with discharge orders to: home. A: Prescriptions e-scripted. Reviewed discharge instructions and prescriptions with Patient. IV d/c'd. Belongings collected and sent home with patient. Report called to [facility]. Transition of care & AVS faxed. R: [...] prior to having kincaid catheter removed. Call [facility] ezequiel, will continue to monitor. MOISES DENT RN [...] Plan Documentation Outcome: Ongoing Flowsheets (Taken 03/19/2020 6341) Area of Focus: GI//Elimination Goal This Shift: [...] * Brief Op Note - Es Peace, PRESS OPERATOR APPRENTICE - 03/17/2020 0754 EDT Date: 03/17/2020 Location: [facility] OR Name: Jasbir Kate, : 1940, Diagnosis Pre-op Diagnosis * Colovesical fistula [N32.1] * Diverticulitis [K57.92] Post-op Diagnosis * Colovesical fistula [N32.1] * Diverticulitis [K57.92] Procedures Diagnostic laparoscopy with possible sigmoid colectomy 28546 - UT LAP,SURG,COLECTOMY, PARTIAL, W/ANAST Laparoscopic hand assisted sigmoid colectomy with rigid proctoscopy and flexible sigmoidoscopy withplacement of 19Fr luis armando drain. Surgeons * Sara Mendez MD - Primary Procedure Summary Anesthesia: General ASA: ASA status not filed in the log. Estimated Blood Loss: 50cc Total IV Fluids: 700 mL Urine Output: 50cc Sheryl LDAs: PIV Staff: Laborer Bituminous Paving: Valeria Gaspar RN Scrub Person: Adonay Madrid RN Patient Legislative Assistant: Alexandrea García Indications: Tony Kate is an [...] (No=0, Yes=1) Blood loss 0 (<500=0, 500-1000=1, 6641-4184=3, >2000=6) Duration of procedure 1(<2:00=0, 2:00-2:59=1, 3:00-3:59=2, >4:00=4) TOTAL: 6 Body mass index is 27.13 kg/m??. documented in this encounter Plan of Treatment Upcoming Encounters Date Type Department Care Team (Late st Contact Info) Description 08/25/2024 11:00 EDT Procedure visit [facility] [address] [place] [address] Ryan Shields MD [address] [place] [address], [facility] [address] [place] [address] Scheduled Referrals Name Type Priority Associated Diagnoses [...] 10 - 26 mg/dL 03/24/2020 6:25 EDT [facility] Blood VENOUS BLOOD / Unknown Venipuncture / Unknown 03/24/2020 5:36 EDT 03/24/2020 5:56 EDT Bahman Perez MD CHEMISTRY & BLOOD GA S ORDERABLES Performing Organization Address [facility] Co de Phone Number [facility] [address] [place] [address] * (ABNORMAL) CALCIUM (03/24/2020 5:36 EDT) Calcium 8.2(L) 8.5 - 10.5 mg/dL 03/24/2020 6:25 EDT [facility] Calculated Calcium 9.2 8.5 - 10.5 mg/dL 03/24/2020 6:25 T [facility] Blood VENOUS BLOOD / Unknown Venipuncture / Unknown 03/24/2020 5:36 EDT 03/24/2020 5:56 EDT Bahman Perez MD CHEMISTRY & BLOOD GA S ORDERABLES Performing Organization Address [facility] de Phone Number [facility] [address] [place] [address] * (ABNORMAL) COMPLETE BLOOD COUNT AND DIFFERENTIAL (03/24/2020 5:36 EDT) WBC 8.68 4.00 - 10.40 K/cmm 03/24/2020 6:02 [facility] RBC 4.38 4.36 - 5.78 M/cmm 03/24/2020 6:02 [facility] Hemoglobin 14.1 13.8 - 17.3 gm/dL 03/24/2020 6:02 [facility] HCT 42.2 39.5 - 50.2 % 03/24/2020 6:02 [facility] MCV 96(H) 81 - 95 fl 03/24/2020 6:02 [facility] MCH 32.2 27.6 - 33.0 pg 03/24/2020 6:02 [facility] MCHC 33.4 32.8 - 36.4 gm/dL 03/24/2020 6:02 [facility] RDW-CV 12.2 <14.2 % 03/24/2020 6:02 [facility] RDW-SD 43.7 <46.0 fl 03/24/2020 6:02 [facility] PLT 265 141 - 377 K/cmm 03/24/2020 6:02 [facility] MPV 10.2 9.5 - 12.7 fl 03/24/2020 6:02 [facility] % Neutrophils 72.3 % 03/24/2020 6:02 [facility] % Lymphocytes 17.1 % 03/24/2020 6:02 [facility] % Monocytes 7.1 % 03/24/2020 6:02 [facility] % Eosinophils 2.6 % 03/24/2020 6:02 [facility] % Basophils 0.3 % 03/24/2020 6:02 [facility] % Immature Grans 0.6 % 03/24/20 20 6:02 [facility] Absolute Neutrophils 6.27 2.20 - 8.85 K/cmm 03/24/2020 6:02 [facility] Absolute Lymphocytes 1.48 1.09 - 3.30 K/cmm 03/24/2020 6:02 [facility] Absolute Monocytes 0.62 0.10 - 0.80 K/cmm 03/24/2020 6:02 [facility] Absolute Eosinophils 0.23 0.03 - 0.61 K/cmm 03/24/2020 6:02 [facility] ABS Basophils 0.03 0.01 - 0.11 K/cm 03/24/2020 6:02 [facility] Absolute Immature Grans 0.05 0.00 - 0.06 K/cmm 03/24/2020 6:02 [facility] Type of Differential: Auto 03/24/2020 6:02 [facility] Blood VENOUS BLOOD / Unknown Venipuncture / Unknown 03/24/2020 5:36 EDT 03/24/2020 5:54 EDT Bahman Perez MD PACKAGES & DNA PROBE ORDERABLES Performing Organization Address City/[facility] Co de Phone Number [facility] [address] [place] [address] * CREATININE (03/24/2020 5:36 EDT) Creatinine 0.66 0.66 - 1.25 mg/dL 03/24/2020 6:25 EDT [facility] eGFR 93 >60 mL/min/1.7 3m2 03/24/2020 6:25 EDT [facility] Comment:eGFR calculated ernesto cee CKD-EPI equation for non- Americans. Multiply eGFR by 1.16 for patients. Blood VENOUS BLOOD / Unknown Venipuncture / Unknown 03/24/2020 5:36 EDT 03/24/2020 5:56 EDT Bahman Perez MD CHEMISTRY & BLOOD GA S ORDERABLES Performing Organization Address [facility] Co de Phone Number [facility] [address] [place] [address] * ELECTROLYTES (03/24/2020 5:36 EDT) Sodium 139 136 - 145 mEq/L 03/24/2020 6:25 EDT [facility] Potassium 3.9 3.5 - 5.0 mEq/L 03/24/2020 6:25 EDT [facility] Chloride 108 96 - 110 mEq/L 03/24/2020 6:25 EDT [facility] CO2 Total 23 22 - 32 mEq/L 03/24/2020 6:25 EDT [facility] Blood VENOUS BLOOD / Unknown Venipuncture / Unknown 03/24/2020 5:36 EDT 03/24/2020 5:56 EDT Bahman Perez MD CHEMISTRY & BLOOD GA S ORDERABLES Performing Organization Address City/[facility] Co de Phone Number [facility] [address] [place] [address] * MAGNESIUM (03/24/2020 5:36 EDT) Magnesium 2.4 1.7 - 2.8 mg/dL 03/24/2020 6:25 EDT [facility] Blood VENOUS BLOOD / Unknown Venipuncture / Unknown 03/24/2020 5:36 EDT 03/24/2020 5:56 EDT Bahman Perez MD CHEMISTRY & BLOOD GA S ORDERABLES Performing Organization Address City/[facility]/ZIP Co de Phone Number [facility] [address] [place] [address] * CREATININE, FLUID (03/23/2020 12:34 EDT) Pathologist [facility] Creatinine, Fluid 0.66 See Note mg/dL 03/23/2020 14:55 EDT [facility] Comment: Peritoneal Fluid Reference range unavailable. Clinical correlation required. This Fluid Creatinine assay was developed and its performance characteristics determined by [facility]. ??It has not been cleared or approved by the US Food and Drug Administration. Fluid PERITONEAL FLUID / Unknown 03/23/2020 12:34 EDT 03/23/2020 14:35 EDT Jaguar Liang MD GEN LAB UNIT COLLECT ORDERABLES Performing Organization Address [facility] Co de Phone Number [facility] [address] [place] [address] * HN LAB CBC SMEAR REVIEW (03/23/2020 7:48 EDT) Pathologist [facility] Differential Comment Slide was examined by a technologist to verify the WBC and/or platelet count. 03/23/2020 8:42 EDT [facility] Blood VENOUS BLOOD / Unknown Venipuncture / Unknown 03/23/2020 7:48 EDT 03/23/2020 8:05 EDT Clayton Reynoso MD HEMATOLOGY & PF4 OR DERABLES Performing Organization Address City/[facility]/ZIP Co de Phone Number [facility] [address] [place] [address] * (ABNORMAL) COMPLETE BLOOD COUNT AND DIFFERENTIAL (03/23/2020 7:48 EDT) WBC 10.38 4.00 - 10.40 K/cmm 03/23/2020 8:43 [facility] RBC 4.91 4.36 - 5.78 M/cmm 03/23/2020 8:43 [facility] Hemoglobin 16.0 13.8 - 17.3 gm/dL 03/23/2020 8:43 [facility] HCT 46.9 39.5 - 50.2 % 03/23/2020 8:43 [facility] MCV 96(H) 81 - 95 fl 03/23/2020 8:43 [facility] MCH 32.6 27.6 - 33.0 pg 03/23/2020 8:43 [facility] MCHC 34.1 32.8 - 36.4 gm/dL 03/23/2020 8:43 [facility] RDW-CV 12.3 <14.2 % 03/23/2020 8:43 [facility] RDW-SD 42.5 <46.0 fl 03/23/2020 8:43 [facility] PLT 03/23/2020 8:43 [facility] Comment:Unreportable due to presence of platelet clumps. MPV 03/23/2020 8:43 [facility] Comment:Not Available % Neutrophils 77.3 % 03/23/2020 8:43 [facility] % Lymphocytes 13.8 % 03/23/2020 8:43 [facility] % Monocytes 6.8 % 03/23/2020 8:43 [facility] % Eosinophils 1.2 % 03/23/2020 8:43 [facility] % Basophils 0.4 % 03/23/2020 8:43 [facility] % Immature Grans 0.5 % 03/23/20 20 8:43 [facility] Absolute Neutrophils 8.03 2.20 - 8.85 K/cmm 03/23/2020 8:43 EDT [facility] Absolute Lymphocytes 1.43 1.09 - 3.30 K/cm 03/23/2020 8:43 EDT [facility] Absolute Monocytes 0.71 0.10 - 0.80 K/[facility] 03/23/2020 8:43 EDT [facility] Absolute Eosinophils 0.12 0.03 - 0.61 K/[facility] 03/23/2020 8:43 EDT [facility] ABS Basophils 0.04 0.01 - 0.11 K/[facility] 03/23/2020 8:43 EDT [facility] Absolute Immature Grans 0.05 0.00 - 0.06 K/[facility] 03/23/2020 8:43 EDT [facility] Type of Differential: Auto 03/23/2020 8:43 T [facility] Blood VENOUS BLOOD / Unknown Venipuncture / Unknown 03/23/2020 7:48 EDT 03/23/2020 8:05 EDT Clayton Reynoso MD PACKAGES & DNA PROB E ORDERABLES Performing Organization Address [facility] de Phone Number [facility] [address] [place] [address] * CALCIUM (03/23/2020 7:48 EDT) Calcium 8.7 8.5 - 10.5 mg/dL 03/23/2020 8:14 EDT [facility] Calculated Calcium 9.0 8.5 - 10.5 mg/dL 03/23/2020 8:14 EDT [facility] Blood VENOUS BLOOD / Unknown Venipuncture / Unknown 03/23/2020 7:48 EDT 03/23/2020 7:55 EDT Clayton Reynoso MD CHEMISTRY & BLOOD G ORDERABLES Performing Organization Address City/[facility] Co de Phone Number [facility] [address] [place] [address] * MAGNESIUM (03/23/2020 7:48 EDT) Magnesium 2.5 1.7 - 2.8 mg/dL 03/23/2020 8:14 EDT [facility] Blood VENOUS BLOOD / Unknown Venipuncture / Unknown 03/23/2020 7:48 EDT 03/23/2020 7:55 EDT Clayton Reynoso MD CHEMISTRY & BLOOD G ORDERABLES Performing Organization Address [facility] Phone Number [facility] [address] [place] [address] * (ABNORMAL) ELECTROLYTES (03/23/2020 7:48 EDT) Sodium 143 136 - 145 mEq/L 03/23/2020 8:14 EDT [facility] Potassium 3.2(L) 3.5 - 5.0 mEq/L 03/23/2020 8:14 T [facility] Chloride 109 96 - 110 mEq/L 03/23/2020 8:14 EDT [facility] CO2 Total 25 22 - 32 mEq/L 03/23/2020 8:14 EDT [facility] Blood VENOUS BLOOD / Unknown Venipuncture / Unknown 03/23/2020 7:48 EDT 03/23/2020 7:55 EDT Clayton Reynoso MD CHEMISTRY & BLOOD G ORDERABLES Performing Organization Address [facility] de Phone Number [facility] [address] [place] [address] * (ABNORMAL) CREATININE (03/23/2020 7:48 EDT) Creatinine 0.62(L) 0.66 - 1.25 mg/dL 03/23/2020 8:14 EDT [facility] eGFR 95 >60 mL/min/1.7 3m2 03/23/2020 8:14 T [facility] Comment:eGFR calculated ernesto cee CKD-EPI equation for non- Americans. Multiply eGFR by 1.16 for patients. Blood VENOUS BLOOD / Unknown Venipuncture / Unknown 03/23/2020 7:48 EDT 03/23/2020 7:55 EDT Clayton Reynoso MD CHEMISTRY & BLOOD G ORDERABLES Performing Organization Address City/[facility]/ZIP Co de Phone Number [facility] [address] [place] [address] * BUN (03/23/2020 7:48 EDT) BUN 16 10 - 26 mg/dL 03/23/2020 8:14 EDT [facility] Blood VENOUS BLOOD / Unknown Venipuncture / Unknown 03/23/2020 7:48 EDT 03/23/2020 7:55 EDT Clayton Reynoso MD CHEMISTRY & BLOOD G ORDERABLES Performing Organization Address [facility] Co de Phone Number [facility] [address] [place] [address] * FL CYSTOGRAM (03/22/2020 9:43 EDT) Anatomical [...] bladder Comparison: CT abdomen pelvis 12/14/2019. FINDINGS: Purse Maker KUB film of the abdomen shows the [...] frombladder Comparison: CT abdomen pelvis 12/14/2019. FINDINGS: Purse Maker KUB film of the abdomen shows the [...] andagree with the findings. Korin Srivastava MD IM FLUOROSCOPY KAT FRAIRE * (ABNORMAL) COMPLETE BLOOD COUNT (03/19/2020 6:39 EDT) WBC 16.17(H) 4.00 - 10.40 K/cmm 03/19/2020 6:54 EDT [facility] RBC 5.19 4.36 - 5.78 M/cmm 03/19/2020 6:54 EDT [facility] Hemoglobin 16.7 13.8 - 17.3 gm/dL 03/19/2020 6:54 EDT [facility] HCT 49.2 39.5 - 50.2 % 03/19/2020 6:54 EDT [facility] MCV 95 81 - 95 fl 03/19/2020 6:54 EDT [facility] MCH 32.2 27.6 - 33.0 pg 03/19/2020 6:54 EDT [facility] MCHC 33.9 32.8 - 36.4 gm/dL 03/19/2020 6:54 EDT [facility] RDW-CV 12.4 <14.2 % 03/19/2020 6:54 EDT [facility] RDW-SD 43.0 <46.0 fl 03/19/2020 6:54 EDT [facility] PLT 233 141 - 377 K/cmm 03/19/2020 6:54 T [facility] MPV 10.4 9.5 - 12.7 fl 03/19/2020 6:54 EDT [facility] Blood VENOUS BLOOD / Unknown Venipuncture / Unknown 03/19/2020 6:39 EDT 03/19/2020 6:44 EDT Clayton Reynoso MD HEMATOLOGY & PF4 OR DERABLES Performing Organization Address City/State/[facility] Co de Phone Number [facility] [address] [place] [address] * (ABNORMAL) ELECTROLYTES (03/19/2020 6:39 EDT) Sodium 138 136 - 145 mEq/L 03/19/2020 7:21 EDT [facility] Potassium 4.1 3.5 - 5.0 mEq/L 03/19/2020 7:21 EDT [facility] Chloride 106 96 - 110 mEq/L 03/19/2020 7:21 EDT [facility] CO2 Total 20(L) 22 - 32 mEq/L 03/19/2020 7:21 EDT [facility] Blood VENOUS BLOOD / Unknown Venipuncture / Unknown 03/19/2020 6:39 EDT 03/19/2020 6:51 EDT Clayton Reynoso MD CHEMISTRY & BLOOD G ORDERABLES Performing Organization Address [facility] de Phone Number [facility] [address] [place] [address] * (ABNORMAL) CREATININE (03/19/2020 6:39 EDT) Creatinine 0.63(L) 0.66 - 1.25 mg/dL 03/19/2020 7:21 EDT [facility] eGFR 94 >60 mL/min/1.7 3m2 03/19/2020 7:21 EDT [facility] Comment:eGFR calculated enresto cee CKD-EPI equation for non- Americans. Multiply eGFR by 1.16 for patients. Blood VENOUS BLOOD / Unknown Venipuncture / Unknown 03/19/2020 6:39 EDT 03/19/2020 6:51 EDT Clayton Reynoso MD CHEMISTRY & BLOOD G ORDERABLES Performing Organization Address [facility] Co de Phone Number [facility] [address] [place] [address] * BUN (03/19/2020 6:39 EDT) BUN 14 10 - 26 mg/dL 03/19/2020 7:21 EDT [facility] Blood VENOUS BLOOD / Unknown Venipuncture / Unknown 03/19/2020 6:39 EDT 03/19/2020 6:51 EDT Clayton Reynoso MD CHEMISTRY & BLOOD G ORDERABLES Performing Organization Address [facility] Co de Phone Number [facility] [address] [place] [address] * (ABNORMAL) COMPLETE BLOOD COUNT (03/18/2020 18:25 EDT) WBC 14.98(H) 4.00 - 10.40 K/cmm 03/18/2020 18:39 EDT [facility] RBC 4.98 4.36 - 5.78 M/cmm 03/18/2020 18:39 EDT [facility] Hemoglobin 16.4 13.8 - 17.3 gm/dL 03/18/2020 18:39 EDT [facility] HCT 47.5 39.5 - 50.2 % 03/18/2020 18:39 EDT [facility] MCV 95 81 - 95 fl 03/18/2020 18:39 EDT [facility] MCH 32.9 27.6 - 33.0 pg 03/18/2020 18:39 EDT [facility] MCHC 34.5 32.8 - 36.4 gm/dL 03/18/2020 18:39 EDT [facility] RDW-CV 12.5 <14.2 % 03/18/2020 18:39 T [facility] RDW-SD 43.9 <46.0 fl 03/18/2020 18:39 EDT [facility] PLT 203 141 - 377 K/cmm 03/18/2020 18:39 T [facility] MPV 10.3 9.5 - 12.7 fl 03/18/2020 18:39 T [facility] Blood VENOUS BLOOD / Unknown Venipuncture / Unknown 03/18/2020 18:25 EDT 03/18/2020 18:31 EDT Clayton Reynoso MD HEMATOLOGY & PF4 OR DERABLES Performing Organization Address City/State/[facility] Co de Phone Number [facility] [address] [place] [address] * (ABNORMAL) COMPLETE BLOOD COUNT (03/18/2020 16:02 EDT) WBC 16.21(H) 4.00 - 10.40 K/cmm 03/18/2020 16:52 EDT [facility] RBC 5.27 4.36 - 5.78 M/cmm 03/18/2020 16:52 [facility] Hemoglobin 17.2 13.8 - 17.3 gm/dL 03/18/2020 16:52 T [facility] HCT 50.9(H) 39.5 - 50.2 % 03/18/2020 16:52 EDT [facility] MCV 97(H) 81 - 95 fl 03/18/2020 16:52 EDT [facility] MCH 32.6 27.6 - 33.0 pg 03/18/2020 16:52 EDT [facility] MCHC 33.8 32.8 - 36.4 gm/dL 03/18/2020 16:52 EDT [facility] RDW-CV 12.5 <14.2 % 03/18/2020 16:52 EDT [facility] RDW-SD 45.0 <46.0 fl 03/18/2020 16:52 EDT [facility] PLT 226 141 - 377 K/cmm 03/18/2020 16:52 EDT [facility] MPV 10.4 9.5 - 12.7 fl 03/18/2020 16:52 EDT [facility] Blood VENOUS BLOOD / Unknown Venipuncture / Unknown 03/18/2020 16:02 EDT 03/18/2020 16:32 EDT Es Peace TESTING MANAGER HEMATOLOGY & PF4 ORD ERABLES Performing Organization Address City/[facility] Co de Phone Number [facility] [address] [place] [address] * (ABNORMAL) CALCIUM (03/18/2020 6:55 EDT) [facility] Calcium 8.4(L) 8.5 - 10.5 mg/dL 03/18/2020 18:27 EDT [facility] Calculated Calcium 8.9 8.5 - 10.5 mg/dL 03/18/2020 18:27 EDT [facility] Blood VENOUS BLOOD / Unknown Venipuncture / Unknown 03/18/2020 6:55 EDT 03/18/2020 7:04 EDT Clayton Reynoso MD CHEMISTRY & BLOOD G ORDERABLES Performing Organization Address City/[facility] Co de Phone Number [facility] [address] [place] [address] * MAGNESIUM (03/18/2020 6:55 EDT) Magnesium 2.1 1.7 - 2.8 mg/dL 03/18/2020 18:27 [facility] Blood VENOUS BLOOD / Unknown Venipuncture / Unknown 03/18/2020 6:55 EDT 03/18/2020 7:04 EDT Clayton Reynoso MD CHEMISTRY & BLOOD G ORDERABLES [facility] [address] [place] [address] * (ABNORMAL) COMPLETE BLOOD COUNT AND DIFFERENTIAL (03/18/2020 6:55 EDT) WBC 11.94(H) 4.00 - 10.40 K/cmm 03/18/2020 7:14 [facility] RBC 4.65 4.36 - 5.78 M/cmm 03/18/2020 7:14 [facility] Hemoglobin 15.3 13.8 - 17.3 gm/dL 03/18/2020 7:14 [facility] HCT 44.3 39.5 - 50.2 % 03/18/2020 7:14 [facility] MCV 95 81 - 95 fl 03/18/2020 7:14 [facility] MCH 32.9 27.6 - 33.0 pg 03/18/2020 7:14 [facility] MCHC 34.5 32.8 - 36.4 gm/dL 03/18/2020 7:14 [facility] RDW-CV 12.5 <14.2 % 03/18/2020 7:14 [facility] RDW-SD 43.6 <46.0 fl 03/18/2020 7:14 [facility] PLT 184 141 - 377 K/cmm 03/18/2020 7:14 [facility] MPV 10.0 9.5 - 12.7 fl 03/18/2020 7:14 [facility] % Neutrophils 76.9 % 03/18/2020 7:14 [facility] % Lymphocytes 14.4 % 03/18/2020 7:14 [facility] % Monocytes 8.1 % 03/18/2020 7:14 [facility] % Eosinophils 0.1 % 03/18/2020 7:14 [facility] % Basophils 0.2 % 03/18/2020 7:14 [facility] % Immature Grans 0.3 % 03/18/20 7:14 [facility] Absolute Neutrophils 9.18(H) 2.20 - 8.85 K/cmm 03/18/2020 7:14 [facility] Absolute Lymphocytes 1.72 1.09 - 3.30 K/cmm 03/18/2020 7:14 [facility] Absolute Monocytes 0.97(H) 0.10 - 0.80 K/cmm 03/18/2020 7:14 [facility] Absolute Eosinophils 0.01(L) 0.03 - 0.61 K/cmm 03/18/2020 7:14 [facility] ABS Basophils 0.02 0.01 - 0.11 K/cmm 03/18/2020 7:14 [facility] Absolute Immature Grans 0.04 0.00 - 0.06 K/cmm 03/18/2020 7:14 [facility] Type of Differential: Auto 03/18/2020 7:14 [facility] Blood VENOUS BLOOD / Unknown Venipuncture / Unknown 03/18/2020 6:55 EDT 03/18/2020 7:06 EDT [employer] TESTING MANAGER PACKAGES & DNA PROBE ORDERABLES [facility] [address] [place] [address] * CREATININE (03/18/2020 6:55 EDT) Creatinine 0.79 0.66 - 1.25 mg/dL 03/18/2020 7:35 T [facility] eGFR 86 >60 mL/min/1.7 3m2 03/18/2020 7:35 EDT [facility] Comment:eGFR calculated ernesto cee CKD-EPI equation for non- Americans. Multiply eGFR by 1.16 for patients. Blood VENOUS BLOOD / Unknown Venipuncture / Unknown 03/18/2020 6:55 EDT 03/18/2020 7:04 EDT Es [employer] TESTING MANAGER CHEMISTRY & BLOOD GA S ORDERABLES Performing Organization Address [facility]/ZIP Co de Phone Number [facility] [address] [place] [address] * BUN (03/18/2020 6:55 EDT) BUN 12 10 - 26 mg/dL 03/18/2020 7:35 EDT [facility] Blood VENOUS BLOOD / Unknown Venipuncture / Unknown 03/18/2020 6:55 EDT 03/18/2020 7:04 EDT Es [employer] TESTING MANAGER CHEMISTRY & BLOOD GA S ORDERABLES Performing Organization Address [facility] de Phone Number [facility] [address] [place] [address] * (ABNORMAL) ELECTROLYTES (03/18/2020 6:55 EDT) Sodium 135(L) 136 - 145 mEq/L 03/18/2020 7:35 EDT [facility] Potassium 4.2 3.5 - 5.0 mEq/L 03/18/2020 7:35 EDT [facility] Chloride 104 96 - 110 mEq/L 03/18/2020 7:35 EDT [facility] CO2 Total 23 22 - 32 mEq/L 03/18/2020 7:35 EDT [facility] Blood VENOUS BLOOD / Unknown Venipuncture / Unknown 03/18/2020 6:55 EDT 03/18/2020 7:04 EDT Es [employer] TESTING MANAGER CHEMISTRY & BLOOD GA S ORDERABLES Performing Organization Address [facility] Co de Phone Number [facility] [address] [place] [address] * (ABNORMAL) SCREENING GLUCOSE (03/18/2020 6:55 EDT) Glucose, Screening 107(H) 70 - 100 mg/dL 03/18/2020 7:35 EDT [facility] Blood VENOUS BLOOD / Unknown Venipuncture / Unknown 03/18/2020 6:55 EDT 03/18/2020 7:04 EDT Es Peace NP CHEMISTRY & BLOOD GA S ORDERABLES [facility] [address] [place] [address] * BACTERIAL CULTURE, BLOOD (03/17/2020 18:20 EDT) Organism ID No Growth at 5 days 03/22/2020 19:15 EDT [facility] Blood VENOUS BLOOD / Unknown Blood Culture / Unknown 03/17/2020 18:20 EDT 03/17/2020 19:10 EDT Jaguar Liang MD MICROBIOLOGY - GENER AL ORDERABLES [facility] [address] [place] [address] * BACTERIAL CULTURE, BLOOD (03/17/2020 18:13 EDT) Organism ID No Growth at 5 days 03/22/2020 19:15 EDT [facility] Blood VENOUS BLOOD / Unknown Blood Culture / Unknown 03/17/2020 18:13 EDT 03/17/2020 19:10 EDT Jaguar Liang MD MICROBIOLOGY - GENER AL ORDERABLES Performing Organization Address City/[facility]/ZIP Co de Phone Number [facility] [address] [place] [address] * BACTERIAL CULTURE, URINE (03/17/2020 17:59 EDT) Organism ID No Growth 03/19/2020 8:17 EDT [facility] Urine URINE SPECIMEN OBTAINED BY SINGLE CATHETERIZATION OF URINARY BLADDER / Unknown Urine Collect / Unknown 03/17/2020 17:59 EDT 03/17/2020 18:35 EDT Jaguar Liang MD MICROBIOLOGY - [facility] AL ORDERABLES [facility] [address] [place] [address] * (ABNORMAL) URINE CHEMICAL (DIP) & SEDIMENT (MICRO) WITH REFLEX TO CULTURE (03/17/2020 17:59 EDT) Color UA Yellow Colorless, Yellow 03/17/2020 18:35 [facility] Clarity UA Clear Clear 03/17/2020 18:35 [facility] Glucose UA Negative Negative 03/17/2020 18:35 [facility] Bilirubin UA Negative Negative 03/17/2020 18:35 [facility] Ketones UA 1+(A) Negative 03/17/2020 18:35 [facility] Specific [place], Urine 1.028 1.001 - 1.035 03/17/2020 18:35 [facility] Blood UA 3+(A) Negative 03/17/2020 18:35 [facility] Urobilinogen UA Normal Normal mg/dL 020 18:35 [facility] Nitrite UA Negative Negative 03/17/2020 18:35 [facility] Leukocyte Esterase UA 2+(A) Negative 03/17/2020 18:35 [facility] Protein UA 2+(A) Negative 03/17/2020 18:35 [facility] pH, UA 6.0 4.6 - 8.0 03/17/2020 18:35 [facility] Urine RBC Count, Auto >50(A) 0 - 2 Cells/HPF 03/17/2020 18:35 [facility] Urine WBC Count, Auto >50(A) 0 - 3 Cells/HPF 03/17/2020 18:35 [facility] Urine Squamous Count, Auto None Seen None Seen Cells/HPF 03/17/2020 18:35 [facility] Urine Hyaline Cast Count, Auto <=10 <=10 Casts/LPF 03/17/2020 18:35 T [facility] Urine Bacteria Count, Auto None Seen None Seen Bacteria/HPF 03/17/2020 18:35 T [facility] Urine URINE SPECIMEN OBTAINED BY SINGLE CATHETERIZATION OF URINARY BLADDER / Unknown Urine Collect / Unknown 03/17/2020 17:59 EDT 03/17/2020 18:05 EDT Narrative [facility] - 03/17/2020 18:35 EDT A Urine Culture test has been reflexively ordered based on result criteria from the Urine Sediment Analysis. Urine Sediment Analysis results are unreliable on urines that are unrefrigerated for >2 hrs or refrigerated >8 hrs. Jaguar Liang MD URINALYSIS ORDERABLE S Performing Organization Address City/State/[facility] Co de Phone Number [facility] [address] [place] [address] * SURGICAL PATHOLOGY (03/17/2020 10:30 EDT) Final Diagnosis A. 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 - Negative for dysplasia and malignancy. - Surgical resection margins viable. 03/22/2020 15:14 [facility] at 1514 Attestation There was significant resident/fellow involvement in the diagnostic evaluation of this case. By the signature below, the attending physician certifies that they have personally conducted a gross and/or microscopic examination of the described specimens and rendered or confirmed the above diagnosis. 03/22/2020 15:14 [facility] at 1514 Clinical History Colovesical fistula; diverticulitis 03/22/2020 15:14 [facility] Gross Description A. [...] surrounding mesentery reveals lobulated, yellow cut surfaces. Annealer Helper sections are submitted as follows: BLOCK HENSON A1- stapled margin, en face A2-A3- open margin, bisected, en face A4-A7- sections of diverticula A8- section of separate donut Kim Joel 03/18/2020 8:05 03/22/2020 15:14 EDT [facility] Resident/Vish w: Chance Crouch MD 03/22/2020 15:14 EDT [facility] Scanned Images 03/22/2020 15:14 EDT [facility] Tissue ENTIRE SIGMOID COLON / Unknown 03/17/2020 10:30 EDT 03/17/2020 16:33 EDT Sara Mendez MD PATHOLOGY ORDERABLES [facility] [address] [place] [address] documented in this encounter Visit Diagnoses Diagnosis [...] Routine 1112 (Given - Provider: Moises Dent, RN) enoxaparin (LOVENOX) injection 40 mg 40 [...] 5-10 mg 2 03/17/2020 polyethylene glycol 3350 ([place] RALAX) packet 17 g 1 03/17/2020 sodium [...] 02/26 documented in this encounter Care Teams Plastic Tile Layer Relationship Specialty Start Date End Date Kylie Oglesby [address] [place] [address] PCP - General Internal Medicine - Primary Care 12/15/19 documented as of this encounter
--- OUTSIDE RECORDS SUMMARY | 2024-08-19 12:24 | XMS_ITS | Encounter Summary ---
Author Organization [facility] Address [address] [place] [address] Care Team Providers Care Derrickman Helper Name Role Phone Unknown, Provider Primary Care Provider Encounter Details Date Type Department Care Team (Late st Contact Info) Description 12/08/2019 Orders Only [facility] Urology Clinic [address] [place], [place] [address] Cathryn Monzon NP [address] [place] [phone] Frequent UTI (Primary Dx) Social History [...] Info) Description 08/25/2024 11:00 EDT Procedure visit [facility] Neurology Clinic [address] [place] [address] Ryan Shields MD [address] [facility], [facility] [address] [place] [phone] documented as of this encounter Results * BASIC METABOLIC PANEL (BMP) (03/01/2020 15:57 EDT) Sodium 140 136 - 145 mEq/L 03/01/2020 16:59 EDT [facility] Potassium 4.5 3.5 - 5.0 mEq/L 03/01/2020 16:59 EDT [facility] Chloride 104 96 - 110 mEq/L 03/01/2020 16:59 EDT [facility] CO2 Total 27 22 - 32 mEq/L 03/01/2020 16:59 EDT [facility] Glucose 86 70 - 100 mg/dL 03/01/2020 16:59 EDT [facility] Calcium 9.9 8.5 - 10.5 mg/dL 03/01/2020 16:59 EDT [facility] Calculated Calcium 9.6 8.5 - 10.5 mg/dL 03/01/2020 16:59 EDT [facility] BUN 15 10 - 26 mg/dL 03/01/2020 16:59 T [facility] Creatinine 0.85 0.66 - 1.25 mg/dL 03/01/2020 16:59 T [facility] eGFR 83 >60 mL/min/1.7 3m2 03/01/2020 16:59 T [facility] Comment:eGFR calculated ernesto cee CKD-EPI equation for non- Americans. Multiply eGFR by 1.16 for patients. Blood VENOUS BLOOD / Unknown Venipuncture / Unknown 03/01/2020 15:57 EDT 03/01/2020 16:26 EDT Cathryn Monzon NP CHEMISTRY & BLOOD G ORDERABLES [facility] [address] [place] [address] documented in this encounter Visit Diagnoses Diagnosis Frequent UTI- Primary Urinary tract infection, site not specified documented in this encounter Care Teams Derrickman Helper Relationship Specialty Start Date End Date Unknown, Provider, PCP - General 10/15/16 12/14/19 documented as of this encounter
--- OUTSIDE RECORDS SUMMARY | 2024-08-19 12:24 | XMS_ITS | Encounter Summary ---
Author Organization [facility] Address [address] [place] [address] Care Team Providers Care Biomass Production Manager Name Role Phone Unknown, Provider Primary [...] Info) Description 08/25/2024 11:00 EDT Procedure visit [facility]rology [facility] [address] [place] [id number] Ryan Shields MD [address] [facility], [address] [place] [phone] documented as of this encounter Visit Diagnoses Not on filedocumented in this encounter Care Teams Biomass Production Manager Relationship Specialty Start Date End Date Unknown, Provider, PCP - General 10/15/16 12/14/19 documented as of this encounter
--- OUTSIDE RECORDS SUMMARY | 2024-08-19 12:24 | XMS_ITS | Encounter Summary ---
Author Organization [facility] Address [address] [place] [address] Care Team Providers Care Project Management Name Role Phone Kylie Oglesby Primary Care Provider [phone] Encounter Details Date Type Department Care Team (Late st Contact Info) Description 03/09/2020 Orders Only [facility] General Surgery - [facility] [address] [place], [place] [id number] Sara Mendez MD [address] [facility], [address] [place] [phone] Encounter for laboratory testing for [...] Info) Description 08/25/2024 11:00 EDT Procedure visit [facility] [address] [place] [address] Ryan Shields MD [address] [place] [address], [address] [place] [phone] documented as of this encounter Visit Diagnoses Diagnosis Encounter for laboratory testing for COVID-19 virus- Primary documented in this encounter Care Teams Project Management Relationship Specialty Start Date End Date Kylie Oglesby [address] [place] [address] PCP - General Internal Medicine - Primary Care 12/15/19 documented as of this encounter
--- OUTSIDE RECORDS SUMMARY | 2024-08-19 12:24 | XMS_ITS | Encounter Summary ---
Author Organization [facility] Address [address] [place] [address] Care Team Providers Care Grinding Mill Operator Name Role Phone Kylie Oglesby Primary Care Provider [phone] Encounter Details Date Type Department Care Team [...] [facility] [address] [place] [address] Ryan Shields MD 111 [facility] [address] [place] [phone] documented as of this encounter Visit Diagnoses Not on filedocumented in this encounter Care Teams Grinding Mill Operator Relationship Specialty Start Date End Date Kylie Oglesby [address] [place] [address] PCP - General Internal Medicine - Primary Care 12/15/19 documented as of this encounter
--- OUTSIDE RECORDS SUMMARY | 2024-08-19 12:24 | XMS_ITS | Encounter Summary ---
Author Organization [facility] Address [address] [place] [address] Care Team Providers Care Hearing And Speech Assistant Name Role Phone Kylie Oglesby Primary Care Provider [phone] Encounter Details Date Type Department Care Team (Late st Contact Info) Description 03/01/2020 16:00 EDT Phlebotomy Only [facility] ED [facility] 2 Phlebotomy [address] [place], [place] [address] [employer] Engineer, Acc Phlebotomy Frequent UTI; Diverticulitis of large [...] Info) Description 08/25/2024 11:00 EDT Procedure visit [facility] Neurology Clinic [address] [place] [address] Ryan Shields MD 111 [facility], [facility] 5 [place] [phone] documented as of this encounter Procedures Procedure Name Priority Date/Time Associated Diagnosis Comments COMPLETE BLOOD COUNT Routine 03/01/2020 15:57 EDT Diverticulitis of large intestine with abscess, unspecified bleeding status BASIC METABOLIC PANEL (BMP) Routine 03/01/2020 15:57 EDT Frequent UTI documented in this encounter Results * (ABNORMAL) COMPLETE BLOOD COUNT (03/01/2020 15:57 EDT) WBC 10.53(H) 4.00 - 10.40 K/cmm 03/01/2020 16:42 [facility] RBC 5.57 4.36 - 5.78 M/cmm 03/01/2020 16:42 [facility] Hemoglobin 18.2(H) 13.8 - 17.3 gm/dL 03/01/2020 16:42 [facility] HCT 53.6(H) 39.5 - 50.2 % 03/01/2020 16:42 [facility] MCV 96(H) 81 - 95 fl 03/01/2020 16:42 [facility] MCH 32.7 27.6 - 33.0 pg 03/01/2020 16:42 [facility] MCHC 34.0 32.8 - 36.4 gm/dL 03/01/2020 16:42 [facility] RDW-CV 12.5 <14.2 % 03/01/2020 16:42 [facility] RDW-SD 44.4 <46.0 fl 03/01/2020 16:42 [facility] PLT 255 141 - 377 K/cmm 03/01/2020 16:42 [facility] MPV 10.4 9.5 - 12.7 fl 03/01/2020 16:42 [facility] Blood VENOUS BLOOD / Unknown Venipuncture / Unknown 03/01/2020 15:57 EDT 03/01/2020 16:26 EDT Sara Mendez MD HEMATOLOGY & PF4 ORD ERABLES Performing Organization Address City/[facility]/ZIP Co de Phone Number [facility] [address] [place] [address] * BASIC METABOLIC PANEL (BMP) (03/01/2020 15:57 EDT) Sodium 140 136 - 145 mEq/L 03/01/2020 16:59 EDT [facility] Potassium 4.5 3.5 - 5.0 mEq/L 03/01/2020 16:59 EDT [facility] Chloride 104 96 - 110 mEq/L 03/01/2020 16:59 EDT [facility] CO2 Total 27 22 - 32 mEq/L 03/01/2020 16:59 EDT [facility] Glucose 86 70 - 100 mg/dL 03/01/2020 16:59 T [facility] Calcium 9.9 8.5 - 10.5 mg/dL 03/01/2020 16:59 EDT [facility] Calculated Calcium 9.6 8.5 - 10.5 mg/dL 03/01/2020 16:59 EDT [facility] BUN 15 10 - 26 mg/dL 03/01/2020 16:59 EDT [facility] Creatinine 0.85 0.66 - 1.25 mg/dL 03/01/2020 16:59 T [facility] eGFR 83 >60 mL/min/1.7 3m2 03/01/2020 16:59 EDT [facility] Comment:eGFR calculated ernesto cee CKD-EPI equation for non- Americans. Multiply eGFR by 1.16 for patients. Blood VENOUS BLOOD / Unknown Venipuncture / Unknown 03/01/2020 15:57 EDT 03/01/2020 16:26 EDT Cathryn Monzon NP CHEMISTRY & BLOOD G ORDERABLES Performing Organization Address City/[facility]/ZIP Co de Phone Number [facility] [address] [place] [address] documented in this encounter Visit Diagnoses Diagnosis Frequent UTI Urinary tract infection, site not specified Diverticulitis of large intestine with abscess, unspecified bleeding status documented in this encounter Care Teams Hearing And Speech Assistant Relationship Specialty Start Date End Date Kylie Oglesby [address] [place] [address] PCP - General Internal Medicine - Primary Care 12/15/19 documented as of this encounter
--- OUTSIDE RECORDS SUMMARY | 2024-08-19 12:24 | XMS_ITS | Encounter Summary ---
Author Organization [facility] Address [address] [place] [address] Care Team Providers Care Salt Lifter Name Role Phone Unknown, Provider Primary Care Provider [phone] Reason for Visit * Reason Onset Date Comments Labs Only 12/03/2019 Encounter Details Date Type Department Care Team (Late st Contact Info) Description 12/03/2019 Telephone [facility] Urology Clinic [address] [place] [address] Bahman Anderson RN Labs Only Social History Tobacco Use [...] Info) Description 08/25/2024 11:00 EDT Procedure visit [facility] Neurology Clinic [address] [place] [address] Ryan Shields MD 111 [facility], [facility] 5 [place] [address] documented as of this encounter Visit Diagnoses Not on filedocumented in this encounter Care Teams Salt Lifter Relationship Specialty Start Date End Date Unknown, Provider, PCP - General 10/15/16 12/14/19 documented as of this encounter
--- OUTSIDE RECORDS SUMMARY | 2024-08-19 12:24 | XMS_ITS | Encounter Summary ---
Author Organization [facility] Address [address] [place] [address] Care Team Providers Care Multiple Coil Winder Name Role Phone Kylie Oglesby Primary Care Provider Reason for Visit * Reason Comments New Patient Visit colovesicu. fistula * Consult (Routine) - Specialty Report Received Specialty Diagnoses / Procedures Referred By Kavitha burgos Referred To Contact General Surgery Diagnoses Pneumaturia Recurrent UTI Cathryn Monzon, MANOJ [address] [place] [phone] Sara Mendez MD [address] [address] Referral ID Status Reason Start Date Expiration Date Visits Requested Visits Authorized [id number] Specialty Report Received Specialty Services Required 12/01/2019 1 1 Encounter Details Date Type Department Care Team (Late st Contact Info) Description 01/05/2020 10:00 EDT Office Visit [facility] General Surgery - [address] [address] Sara Mendez MD [address] [place] [phone] Pneumaturia (Primary Dx) Social History Tobacco Use Types Packs/Day Years Used Date Smoking Tobacco: Former Cigarettes 2 30 1 965 - 1995 Smokeless Tobacco: Never Sex and Gender Information [...] been seen by the urology department at [facility] with Cathryn Monzon. She did [...] 25 years ago but has about a 30-rrky-awsq history. drinks wine daily. 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 He goes to the gym 3 times a week and either sits on the bike or the elliptical machine. He denies any chest pain with exertion, but does have some shortness of breath ifhe walks out 2 flights of stairs Colonoscopy was about 2 to 3 years ago at [facility]. He states it was normal. [...] Info) Description 08/25/2024 11:00 EDT Procedure visit [facility] Neurology Clinic [address] [place] [address] Ryan Shields MD 111 [facility], [facility] 5 [place] [address] documented as of this encounter Visit Diagnoses Diagnosis Pneumaturia- Primary Other specified disorders of urethra documented in this encounter Care Teams Multiple Coil Winder Relationship Specialty Start Date End Date Kylie Oglesby [address] [place], [place] [address] PCP - General Internal Medicine - Primary Care 12/15/19 documented as of this encounter
--- OUTSIDE RECORDS SUMMARY | 2024-08-19 12:24 | XMS_ITS | Encounter Summary ---
Author Organization [facility] Address [address] [place] [address] Care Team Providers Care Green Meat Grader Name Role Phone Unknown, Provider Primary Care Provider [phone] Reason for Visit * (Routine) - Receiving Office to Obtain Authorization Specialty Diagnoses / Procedures Referred By Kavitha burgos Referred To Contact Procedures CT OUTSIDE IMAGES BODY Unknown, Provider, Referral ID Status Reason Start Date Expiration Date Visits Requested Visits Authorized [id number] Receiving Office to Obtain Authorization 12/31/2019 1 1 Encounter Details Date Type Department Care Team (Latest Contact Info) Description 12/14/2019 - 12/14/2019 23:59 EST Hospital Encounter [facility] Radiology - Main [place] [address] [place] [address] Discharge Disposition: Home or Self Care Social [...] 08/25/2024 11:00 EDT Procedure visit [facility] Neurology Clinic [address] [place] [address] Ryan Shields MD 111 [facility], [facility] 5 [place] [address] documented as of this encounter Procedures Procedure Name Priority Date/Time Associated Diagnosis Comments CT OUTSIDE IMAGES BODY Routine 12/31/2019 14:40 EST documented in this encounter Results * CT OUTSIDE IMAGES BODY (12/31/2019 14:40 EST) Narrative SAMEER - 12/31/2019 14:40 EST This is a non-reportable exam. Physician Fa_General MD CABA OTHER MIRANDA G ORDERABLES Performing Organization Address City/State/[facility] Co de Phone Number SAMEER documented in this encounter Visit Diagnoses Not on filedocumented in this encounter Care Teams Green Meat Grader Relationship Specialty Start Date End Date Unknown, Provider, PCP - General 10/15/16 12/14/19 documented as of this encounter
--- OUTSIDE RECORDS SUMMARY | 2024-08-19 12:24 | XMS_ITS | Encounter Summary ---
Author Organization Health system Address [address] [place] [address] Care Team Providers Care Last Chalker Name Role Phone Kylie Oglesby Primary Care Provider [phone] Reason for Visit * Reason Comments Post-OP Follow Up Encounter Details Date Type Department Care Team (Late st Contact Info) Description 03/01/2020 14:00 EDT Office Visit [facility] General Surgery - [facility] [address] [place], [place] [phone] Sara Mendez MD [address] [place] [address], Level [address] [place] [address] Diverticulitis of large intestine with [...] been seen by the urology department at [facility] with Cathryn Monzon. She [...] 25 years ago but has about a 70-ggwc-jpns history. drinks wine daily. 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 He goes to the gym 3 [...] I will send the prescriptions to the [facility] in [place]. I was supervised by Dr Mendez who was present and immediately available in the office suite. SERGEI BYERS RN 03/01/2020 15:31 documented in this encounter Plan of Treatment Upcoming Encounters Date Type Department Care Team (Late st Contact Info) Description 08/25/2024 11:00 EDT Procedure visit [facility] Neurology Clinic [address] [place] [address] Ryan Shields MD [address] [place] [address], [address] [place] [address] documented as of this encounter Results * (ABNORMAL) COMPLETE BLOOD COUNT (03/01/2020 15:57 EDT) WBC 10.53(H) 4.00 - 10.40 K/cmm 03/01/2020 16:42 EDT [facility] RBC 5.57 4.36 - 5.78 M/cmm 03/01/2020 16:42 EDT [facility] Hemoglobin 18.2(H) 13.8 - 17.3 gm/dL 03/01/2020 16:42 EDT [facility] HCT 53.6(H) 39.5 - 50.2 % 03/01/2020 16:42 EDT [facility] MCV 96(H) 81 - 95 fl 03/01/2020 16:42 EDT [facility] MCH 32.7 27.6 - 33.0 pg 03/01/2020 16:42 EDT [facility] MCHC 34.0 32.8 - 36.4 gm/dL 03/01/2020 16:42 EDT [facility] RDW-CV 12.5 <14.2 % 03/01/2020 16:42 T [facility] RDW-SD 44.4 <46.0 fl 03/01/2020 16:42 EDT [facility] PLT 255 141 - 377 K/cmm 03/01/2020 16:42 EDT [facility] MPV 10.4 9.5 - 12.7 fl 03/01/2020 16:42 EDT [facility] Blood VENOUS BLOOD / Unknown Venipuncture / Unknown 03/01/2020 15:57 EDT 03/01/2020 16:26 EDT Sara Mendez MD HEMATOLOGY & PF4 ORD ERABLES [facility] [address] [place] [address] documented in this encounter Visit Diagnoses Diagnosis Diverticulitis of large intestine with abscess, unspecified bleeding status- Primary documented in this encounter Orders Lab Orders Without Results Count Last Ordered D ate First Ordered Date BASIC METABOLIC PANEL (BMP) 1 03/01/2020 documented in this encounter Care Teams Last Chalker Relationship Specialty Start Date End Date Kylie Oglesby 4 [facility] [place] [address] PCP - General Internal Medicine - Primary Care 12/15/19 documented as of this encounter
--- OUTSIDE RECORDS SUMMARY | 2024-08-19 12:24 | XMS_ITS | Encounter Summary ---
Author Organization [facility] Address [address] [place] [address] Care Team Providers Care Milk Tanker Driver Name Role Phone Kylie Oglesby Primary Care Provider [phone] Reason for Visit * Reason Onset Date Comments Labs Only 03/14/2020 Encounter Details Date Type Department Care Team (Late st Contact Info) Description 03/14/2020 Telephone [facility] General Surgery - [facility] [address] [place], [place] [phone] Sara Mendez MD 111 [facility], Level [address] [place] [address] Labs Only Social History Tobacco [...] he had the Covid-19 test today at [facility] today at 1 pm. documented in this encounter Plan of Treatment Upcoming Encounters Date Type Department Care Team (Late st Contact Info) Description 08/25/2024 11:00 EDT Procedure visit [facility] Neurology Clinic [address] [place] [address] Ryan Shields MD 111 [facility], Level [address] [place] [phone] documented as of this encounter Visit Diagnoses Not on filedocumented in this encounter Care Teams Milk Tanker Driver Relationship Specialty Start Date End Date Kylie Oglesby 4 [place] [address] PCP - General Internal Medicine - Primary Care 12/15/19 documented as of this encounter
--- OUTSIDE RECORDS SUMMARY | 2024-08-19 12:24 | XMS_ITS | Encounter Summary ---
Author Organization [facility] Address [address] [place] [address] Care Team Providers Care Delivery Merchandiser Name Role Phone Kylie Oglesby Primary Care Provider [phone] Encounter Details Date Type Department Care Team [...] Info) Description 08/25/2024 11:00 EDT Procedure visit [facility] Neurology Clinic [address] [place] [address] Ryan Shields MD 111 [facility] 5 [place] [address] documented as of this encounter Visit Diagnoses Not on filedocumented in this encounter Care Teams Delivery Merchandiser Relationship Specialty Start Date End Date Kylie Oglesby [address] [place] [address] PCP - General Internal Medicine - Primary Care 12/15/19 documented as of this encounter
--- OUTSIDE RECORDS SUMMARY | 2024-08-19 12:24 | XMS_ITS | Encounter Summary ---
Author Organization [facility] Address [address] [place] [address] Care Team Providers Care Pharmacology Associate Name Role Phone Unknown, Provider Primary Care Provider Reason for Referral * Consult (Routine) - Specialty Report Received Specialty Diagnoses / Procedures Referred By Kavitha burgos Referred To Contact General Surgery Diagnoses Pneumaturia Recurrent UTI Cathryn Monzon NP [address] [place] [phone] Sara Mendez MD [address] [place] [address] 5 [place] [address] Referral ID Status Reason Start Date Expiration Date Visits Requested Visits Authorized [id number] Specialty Report Received Specialty Services Required 12/01/2019 1 1 Question Answer Reason for Request: recurrent UTIs, pneumaturia, 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 * Radiology Services (Routine) - Specialty Report Received Specialty Diagnoses / Procedures Referred By Kavitha burgos Referred To Contact Diagnoses UTI symptoms Pneumaturia Procedures CT ABDOMEN PELVIS W CONTRAST Cathryn Monzon NP [address] [place] [phone] Referral ID Status Reason Start Date Expiration Date V isits Requested Visits Authorized [id number] Specialty Report Received 12/01/2019 1 1 Reason for Visit * Reason Comments Recurrent Urinary Tract Infection New Patient Visit Encounter Details Date Type Department Care Team (Late st Contact Info) Description 12/01/2019 14:30 EST Initial consult [facility] Urology Clinic [address] [place], [place] [phone] Cathryn Monzon, HOSPICE ADMINISTRATOR [address] [place] [address] Recurrent UTI (Primary Dx); UTI [...] this encounter Progress Notes * Cathryn Monzon, GARDE MANGER - 12/01/2019 1430 EST Subjective: Patient ID: Jasbir Kate is an 79 y.o. male. Jasbir Kate is seen in the office today for Recurrent Urinary Tract Infection and New Patient Visit. HPI Jasbir has a PMH significant for BPH with [...] abd/pelvis when he was seen in the [facility] ED for back pain in 04/2019, [...] see Dr. Mendez with colorectal surgery at [facility] for colonoscopy. His urine was sent for [...] Info) Description 08/25/2024 11:00 EDT Procedure visit [facility] Neurology Clinic [address] [place] [address] Rayn Shiedls MD [address] [place] [address], [facility] 5 [place] [address] Scheduled Orders Name Type Priority Associated Diagnoses [...] 03/03/2020 added in this encounter Care Teams Pharmacology Associate Relationship Specialty Start Date End Date Unknown, Provider, PCP - General 10/15/16 12/14/19 documented as of this encounter
--- OUTSIDE RECORDS SUMMARY | 2024-08-19 12:24 | XMS_ITS | Encounter Summary ---
Author Organization [facility] Address [address] [place] [address] Care Team Providers Care Plate Glass Installer Name Role Phone Kylie Oglesby Primary Care Provider [phone] Encounter Details Date Type Department Care Team [...] Info) Description 08/25/2024 11:00 EDT Procedure visit [facility] Neurology Clinic [address] [place] [address] Ryan Shields MD 111 [facility] 5 [place] [address] documented as of this encounter Visit Diagnoses Not on filedocumented in this encounter Care Teams Plate Glass Installer Relationship Specialty Start Date End Date Kylie Oglesby [address] [place] [address] PCP - General Internal Medicine - Primary Care 12/15/19 documented as of this encounter
--- OUTSIDE RECORDS SUMMARY | 2024-08-19 12:24 | XMS_ITS | Encounter Summary ---
Author Organization [facility] Address [address] [place] [address] Care Team Providers Care Boathouse Keeper Name Role Phone Kylie Oglesby Primary Care Provider [phone] Reason for Visit * Auth/Cert Specialty Diagnoses / Procedures Referred By Kavitha burgos Referred To Contact Diagnoses History of colon polyps History of colon polyps [Z86.010] Procedures COLONOSCOPY PROCEDURE-GI Referral ID Status Reason Start Date Expiration Date Visits Re quested Visits Authorized [id number] 1 1 Encounter Details Date Type Department Care Team (Late st Contact Info) Description 02/18/2020 11:10 EDT - 02/18/2020 11:50 EDT [facility] Endoscopy - [address] [phone] Sara Mendez MD [address] [place] [address], [facility] 5 [place] [address] COLONOSCOPY PROCEDURE-GI Surgery Details Date/Time Status Location OR Service Patient Class Case Cl ass Case Type Trauma Case? 02/18/20 1110 Posted [facility] GI/ENDO ENDO [address] [place] [address] Outpatient Procedure H - Elective Panel 1 [...] & Physical Date: 02/18/2020 Time: 11:29 Location: [facility] GI/ENDO Planned Procedure: Procedure(s): COLONOSCOPY PROCEDURE-GI Chief Complaint/Indications for Procedure: diagnostic, pneumaturia; personal history of polyps History Previous Complication with Sedation and/or Anesthesia? Allergies: Allergies Allergen Reactions ??? Steroid [Corticosteroids (Glucocorticoids)] Other (See Comments) Paranoia, crazy Current Medications: Current Facility-Administered Medications: dextrose 50 [...] Info) Description 08/25/2024 11:00 EDT Procedure visit [facility] Neurology Clinic [address] [place] [address] Ryan Shields MD [address] [place] [address] 5 [place] [address] documented as of this encounter [...] ??Total sedation time was 26 ?? minutes. [facility] Bowel Prep Right Colon: 3 ? Transverse [...] Alvina Llamas, VIVEK)1237 (Completed - Provider: Alvina Llamas, VIVEK) lactated ringers (LR) infusion 25 mL/hr, intravenous, [...] Krissy Rowland RN)1136 (Given - Provider: Krissy Rowland, RN) midazolam (MDV) (VERSED) injection (COMPLETED) intravenous, PRN, Starting on Tuyet 02/18/20 at 1134, Until Tuyet 02/18/20 at 1136, Routine 1134 (Given - Provid er: Krissy Rowland RN)1136 (Given - Provider: Krissy Rowland, RN) ondansetron (PF) (ZOFRAN) injection 4 mg [...] 02/18/2020 documented in this encounter Care Teams Boathouse Keeper Relationship Specialty Start Date End Date Kylie Oglesby 4 [facility] [place] [address] PCP - General Internal Medicine - Primary Care 12/15/19 documented as of this encounter
--- OUTSIDE RECORDS SUMMARY | 2024-08-19 12:24 | XMS_ITS | Encounter Summary ---
Author Organization [facility] Address [address] [place] [address] Care Team Providers Care Superintendent Quarry Name Role Phone Kylie Oglesby Primary Care Provider [phone] Encounter Details Date Type Department Care Team (Late st Contact Info) Description 03/01/2020 Orders Only [facility] General Surgery - [facility] [address] [place] [address] Farheen Byers, RN [address] [place] [address] Social History Tobacco Use Types Packs/Day Years [...] Info) Description 08/25/2024 11:00 EDT Procedure visit [facility] Neurology Clinic [address] [place] [address] Ryan Shields MD 111 [facility], [facility] 5 [place] [phone] documented as of this encounter Visit Diagnoses Not on filedocumented in this encounter Care Teams Superintendent Quarry Relationship Specialty Start Date End Date Kylie Oglesby 4 [place] [address] PCP - General Internal Medicine - Primary Care 12/15/19 documented as of this encounter
--- OUTSIDE RECORDS SUMMARY | 2024-08-19 12:24 | XMS_ITS | Encounter Summary ---
Author Organization [facility] Address [address] [place] [address] Care Team Providers Care Drill Sharpener Operator Name Role Phone Kylie Oglesby Primary Care Provider [phone] Reason for Visit * Auth/Cert Specialty Diagnoses / Procedures Referred By Kavitha burgos Referred To Contact Diagnoses History of colon polyps History of colon polyps [Z86.010] Procedures COLONOSCOPY PROCEDURE-GI Referral ID Status Reason Start Date Expiration Date Visits Re quested Visits Authorized [id number] 1 1 Encounter Details Date Type Department Care Team (Late st Contact Info) Description 02/18/2020 9:45 EDT - 02/18/2020 12:53 EDT Hospital Encounter [facility] Endoscopy - [facility] [address] [place], [place] [id number] Sara Mendez MD 111 [facility], Level 5 [place] [address] Discharge Disposition: Home or Self [...] & Physical Date: 02/18/2020 Time: 11:29 Location: [facility] GI/ENDO Planned Procedure: Procedure(s): COLONOSCOPY PROCEDURE-GI Chief Complaint/Indications for Procedure: diagnostic, pneumaturia; personal history of polyps History Previous Complication with Sedation and/or Anesthesia? Allergies: Allergies Allergen Reactions ??? Steroid [Corticosteroids (Glucocorticoids)] Other (See Comments) edison Bush Current Medications: Current Facility-Administered Medications: dextrose 50 [...] Documentation - Krissy Rowland RN - 02/18/2020 1143 EDT Abdominal pressure applied. documented in this encounter Plan of Treatment Upcoming Encounters Date Type Department Care Team (Late st Contact Info) Description 08/25/2024 11:00 EDT Procedure visit [facility] Neurology Clinic [address] [place] [address] Ryan Shields MD [address] [place] [address], [facility] 5 [place] [address] documented as of this encounter [...] ??Total sedation time was 26 ?? minutes. [place] Bowel Prep Right Colon: 3 ? Transverse [...] mg, intravenous, PRN, 2 doses, Starting on Utyet 02/18/20 at 1006, Until Tuyet 02/18/20 at [...] 02/18/2020 documented in this encounter Care Teams Drill Sharpener Operator Relationship Specialty Start Date End Date Kylie Oglesby [address] [place] [address] PCP - General Internal Medicine - Primary Care 12/15/19 documented as of this encounter
--- OUTSIDE RECORDS SUMMARY | 2024-08-19 12:24 | XMS_ITS | Encounter Summary ---
Author Organization [facility] Address [address] [place] [address] Care Team Providers Care Goat Driver Name Role Phone Kylie Oglesby Primary Care Provider [phone] Reason for Visit * Reason Onset Date Comments Appointment Related 12/15/2019 Encounter Details Date Type Department Care Team (Late st Contact Info) Description 12/15/2019 Telephone [facility] Urology - Medical Office Building [address] [facility], [address] [place], [place] [address] Myah Garcia RN Appointment Related Social History [...] fax regarding getting this info faxed to [facility] and pushing images. * Telephone Encounter - Myah Garcia RN - 12/15/2019 1344 EST RON Alfaro from Marielena at 's office, Colorectal office who states a referral was rec'd from Abel Ervin. Marielena is requesting a report from a CT done at [facility] from 04/2019 and images pushed and a report and pathology from a Colonoscopy done in 's office, 2 years ago. (possibly from [place] [phone] [place] the fax number is [phone]. Pt has been seen by abel Ervin at [facility], not in this urology office at [facility]. Tc to Marielena to advise. documented in this encounter Plan of Treatment Upcoming Encounters Date Type Department Care Team (Late st Contact Info) Description 08/25/2024 11:00 EDT Procedure visit [facility] Neurology Clinic [address] [place], [place] [address] Ryan Shields MD [address] [place] [address], [facility] 5 [place] [address] documented as of this encounter Visit Diagnoses Not on filedocumented in this encounter Care Teams Goat Driver Relationship Specialty Start Date End Date Kylie Oglesby 4 [place] [address] PCP - General Internal Medicine - Primary Care 12/15/19 documented as of this encounter
--- OUTSIDE RECORDS SUMMARY | 2024-08-19 12:24 | XMS_ITS | Encounter Summary ---
Author Organization [facility] Address [address] [place] [address] Care Team Providers Care Rental Clerk Name Role Phone Kylie Oglesby Primary Care Provider [phone] Encounter Details Date Type Department Care Team (Late Contact Info) Description 03/14/2020 Lab Requisition [facility] Pathology & Laboratory Medicine - [address] [id number] Outr Resulting Lab, Provider Social History Tobacco [...] Encounters Date Type Department Care Team (Late Contact Info) Description 08/25/2024 11:00 EDT Procedure visit [facility] Neurology Clinic [address] [place] [address] Ryan Shields MD 111 [facility], [facility] 5 [place] [address] documented as of this encounter Procedures Procedure Name Priority Date/Time Associated Diagnosis Comments DO NOT ORDER STANDALONE - BROAD COVID TEST Today 03/14/2020 13:53 EDT COVID-19 TESTING Routine 03/14/2020 13:5 3 EDT documented in this encounter Results * DO NOT ORDER STANDALONE - BROAD COVID TEST (03/14/2020 13:53 EDT) [facility] COVID-19 rt-PCR Result NEGATIVE Negative 03/15/2020 14:20 EDT [facility] Comment: 2019-novel Coronavirus (2019-nCoV) not [...] in accordance with CLIA regulations, [employer] (CAP) guidelines (Jan 14, 2020), and FDA guidance (Dec 26, 2019). This test is only for use under the Food and Drug Administration's Emergency Use Authorization. Swab ENTIRE NASOPHARYNX / Unknown 03/14/2020 13:53 EDT 03/14/2020 21:37 EDT Provider Outr Resulting Lab MICROBIOLOGY - GENERAL ORDERABLES [facility] [place] * COVID-19 TESTING (03/14/2020 13:53 EDT) COVID-19 rt-PCR Result NEGATIVE Negative 03/15/2020 17:54 EDT [facility] Comment: 2019-novel Coronavirus (2019-nCoV) not detected [...] in accordance with CLIA regulations, [employer] (CAP) guidelines (Jan 14, 2020), and FDA guidance (Dec 26, 2019). This test is only for use under the Food and Drug Administration's Emergency Use Authorization. Performing Lab [facility] 03/15/2020 17:54 EDT [facility] Swab ENTIRE NASOPHARYNX / Unknown 03/14/2020 13:53 EDT 03/14/2020 21:37 EDT Provider Outr Resulting Lab MICROBIOLOGY - GENERAL ORDERABLES [facility] [address] [place] [address] [facility] [place] documented in this encounter Visit Diagnoses Not on filedocumented in this encounter Care Teams Rental Clerk Relationship Specialty Start Date End Date Kylie Oglesby [address] [place], [place] [address] PCP - General Internal Medicine - Primary Care 12/15/19 documented as of this encounter
--- OUTSIDE RECORDS SUMMARY | 2024-08-19 12:24 | XMS_ITS | Encounter Summary ---
Author Organization [facility] Address [address] [place] [address] Care Team Providers Care Photoengraving Sketch Maker Name Role Phone Unknown, Provider Primary Care Provider [phone] Encounter Details Date Type Department Care Team (Late st Contact Info) Description 12/14/2019 Results Only [facility] Urology - Medical Office Building [address], [address] [place], [place] [address] Cathryn Monzon NP [address] [place] [address] Social History Tobacco Use Types [...] 08/25/2024 11:00 EDT Procedure visit [facility] Neurology Clinic [address] [place], [place] [address] Ryan Shields MD 111 [facility], Level [address] [place] [address] documented as of this encounter Procedures Procedure Name Priority Date/Time Associated Diagnosis Comments BASIC METABOLIC PANEL (BMP) Routine 12/14/2019 15:17 EST documented in this encounter Results * BASIC METABOLIC PANEL (BMP) (12/14/2019 15:17 EST) BUN - [facility] 16 10 - 26 mg/dL 12/14/2019 15:45 [facility] CALCIUM - [facility] 9.5 8.5 - 10.5 mg/dL 12/14/2019 15:45 [facility] Chloride 104 96 - 110 mmol/L [...] [facility] GLUCOSE - [facility] 81 70 - 100 mg/dL 12/14/2019 15:45 [facility] Potassium 4.5 3.5 - 5.0 mEq/L 12/14/2019 15:45 [facility] Sodium 139 136 - 145 mEq/L 12/14/2019 15:45 [facility] 12/14/2019 15:1 7 EST 12/14/2019 15:17 EST Cathryn Monzon RADIO NEWS WRITER CHEMISTRY & BLOOD G ORDERABLES [facility] documented in this encounter Visit Diagnoses Not on filedocumented in this encounter Care Teams Photoengraving Sketch Maker Relationship Specialty Start Date End Date Unknown, Provider, PCP - General 10/15/16 12/14/19 documented as of this encounter
--- OUTSIDE RECORDS SUMMARY | 2024-08-19 12:24 | XMS_ITS | Encounter Summary ---
Author Organization [facility] Address [address] [place] [address] Care Team Providers Care Oil Burner Mechanic Name Role Phone Kylie Oglesby Primary Care Provider [phone] Reason for Visit * Reason Onset Date Comments COVID-19 03/14/2020 PATIENT IS MAEGAN Ramon PREPROCEDURAL TEST DONE AT [facility] 03/14/20 PATIENT WAS GIVEN [phone] REG LINE FOR GABRIELLA AND IS CALLING TO GET REGISTERED FOR TESTING TODAY Encounter Details Date Type Department Care Team (Late st Contact Info) Description 03/14/2020 Telephone [facility] Mobile Testing [address] [place] [address] Sara Mendez MD 111 [facility], [facility] 5 [place] [address] COVID-19 (PATIENT IS HAVING PREPROCEDURAL TEST DONE AT [facility] 03/14/20 PATIENT WAS GIVEN [phone] REG LINE FOR GABRIELLA AND IS CALLING TO GET REGISTERED FOR TESTING TODAY ) Social History Tobacco Use Types Packs/Day Years Used Date Smoking Tobacco: Former Cigarettes 30 1 5 - 1994 Smokeless Tobacco: [...] PATIENT IS HAVING PREPROCEDURAL TEST DONE AT [facility] 03/14/20 PATIENT WAS GIVEN [phone] REG LINE FOR [facility] AND IS CALLING TO GET REGISTERED FOR TESTING TODAY documented in this encounter Plan of Treatment Upcoming Encounters Date Type Department Care Team (Late st Contact Info) Description 08/25/2024 11:00 EDT Procedure visit [facility] Neurology Clinic [address] [place] [address] Ryan Shields MD [address] [place] [address], [address] [place] [address] documented as of this encounter Visit Diagnoses Not on filedocumented in this encounter Care Teams Oil Burner Mechanic Relationship Specialty Start Date End Date Kylie Oglesby [address] [place] [address] PCP - General Internal Medicine - Primary Care 12/15/19 documented as of this encounter
--- OUTSIDE RECORDS SUMMARY | 2024-08-19 12:24 | XMS_ITS | Encounter Summary ---
Author Organization [facility] Address [address] [place] [address] Care Team Providers Care Supervisor Compressed Yeast Name Role Phone Kylie Oglesby Primary Care Provider [phone] Encounter Details Date Type Department Care Team (Latest Contact Info) Description 02/05/2020 Travel Social History Tobacco Use Types Packs/Day Years Used Date Smoking Tobacco: Former Cigarettes 30 965 1994 Smokeless Tobacco: Never Sex and Gender [...] Description 08/25/2024 11:00 EDT Procedure visit [facility] Neurology Clinic [address] [place] [address] Ryan Shields MD 111 [facility], [facility] 5 [place] [address] documented as of this encounter Visit Diagnoses Not on filedocumented in this encounter Care Teams Supervisor Compressed Yeast Relationship Specialty Start Date End Date Kylie Oglesby [address] [place] [address] PCP - General Internal Medicine - Primary Care 12/15/19 documented as of this encounter
--- OUTSIDE RECORDS SUMMARY | 2024-08-19 12:24 | XMS_ITS | Encounter Summary ---
Author Organization [facility] Address [address] [place] [address] Care Team Providers Care Skip Hoist Engineer Name Role Phone Kylie Oglesby Primary Care Provider [phone] Encounter Details Date Type Department Care Team (Late st Contact Info) Description 01/05/2020 Orders Only [facility] General Surgery - [facility] [address] [place], [place] [id number] Farheen Byers, VIVEK [address] [place] [address] Social History Tobacco Use Types Packs/Day Years [...] Info) Description 08/25/2024 11:00 EDT Procedure visit [facility] Neurology Clinic [address] [place] [address] Ryan Shields MD 111 [facility], [facility] 5 [place] [address] documented as of this encounter Visit Diagnoses Not on filedocumented in this encounter Care Teams Skip Hoist Engineer Relationship Specialty Start Date End Date Kylie Oglesby [address] [place] [address] PCP - General Internal Medicine - Primary Care 12/15/19 documented as of this encounter
--- OUTSIDE RECORDS SUMMARY | 2024-08-19 12:24 | XMS_ITS | Encounter Summary ---
Author Organization [facility] Address [address] [place] [address] Care Team Providers Care Punch Press Setter Name Role Phone Kylie Oglesby Primary Care Provider [phone] Reason for Visit * Reason Onset Date Comments Patient Information Update 01/08/2020 Encounter Details Date Type Department Care Team (Late st Contact Info) Description 01/08/2020 Telephone [facility] General Surgery - [facility] [address] [place], [place] [id number] Sara Mendez MD 111 [facility], Level [address] [place] [address] Patient Information Update Social History Tobacco Use Types Packs/Day Years Used Date Smoking Tobacco: Former Cigarettes 965 - 1994 Smokeless Tobacco: Never Sex [...] him I sent the Golytely to the [email or web address] in [place] and he will pick it up today. [...] Info) Description 08/25/2024 11:00 EDT Procedure visit [facility] Neurology Clinic [address] [place] [address] Ryan Shields MD [address] [place] [address], [address] [place] [address] documented as of this encounter Visit Diagnoses Not on filedocumented in this encounter Care Teams Punch Press Setter Relationship Specialty Start Date End Date Kylie Oglesby [address] [place] [address] PCP - General Internal Medicine - Primary Care 12/15/19 documented as of this encounter
--- OUTSIDE RECORDS SUMMARY | 2024-08-19 12:24 | XMS_ITS | Encounter Summary ---
Author Organization [facility] Address [address] [place] [address] Care Team Providers Care Criminalist Name Role Phone Kylie Oglesby Primary Care Provider [phone] Reason for Visit * Auth/Cert Specialty Diagnoses / Procedures Referred By Kavitha burgos Referred To Contact Diagnoses Colovesical fistula Procedures SC LAP,SURG,COLECTOMY, PARTIAL, W/ANAST Diagnostic laparoscopy with possible sigmoid colectomy Referral ID Status Reason Start Date Expiration Date Visits Re quested Visits Authorized [id number] 1 1 Encounter Details Date Type Department Care Team (Late st Contact Info) Description 03/17/2020 8:36 EDT Anesthesia Event [facility] OR [address] [place], [place] [address] James Vanessa MD 111 [facility], [facility] 2 [place] [address] Anesthesia Record Procedure Summary Procedure [...] by MD; 1; Superior, Midline; Abdomen; 19 Korean (lalit); 03/23/20; 1751 03/17/20 0000 by Valeria Gaspar RN 03/23/20 1751 by January Pedro RN Urethral Catheter 03/17/20; 0910; Sen rted by RN; Intraoperative monitoring; Non-latex, Straight-tip; [...] diverticulitis ??? Frequent UTI started having issues [id number], never been hospitalized for uti ??? History [...] instruct them to call us back at [phone] to report symptoms If the patient answers [...] Staff Patient location during procedure: OR Performed: resident/TAXONOMIST/AA Indications and Patient Condition Indications for airway management: anesthesia and airway protection Sedation level: GA Preoxygenated: yes Patient position: sniffing Ventilation assessment: 0 - not attempted Final Airway Details Final airway type: endotracheal airway Successful airway: ETT Cuffed: yes Successful intubation technique: video laryngoscopy Crisman Blade: Ines Blade size: #3 ETT size (mm): 8.0 Cormack-Lehane Classification: grade I - full view of glottis Placement verified by: chest auscultation and capnometry Number of attempts at approach: 1 * Anesthesia Procedure Notes - Vita Middleton AA - 03/17/2020 0854 EDT Associated [...] diverticulitis ??? Frequent UTI started having issues [id number], never been hospitalized for uti ??? History [...] through 03/17/20) PAT Note by Chante Garcia, VIVEK at 03/03/2020 12:08 Version 1 of 1 [...] instruct them to call us back at [phone] to report symptoms If the patient answers [...] 08/25/2024 11:00 EDT Procedure visit [facility] Neurology Clinic [address] [place] [address] Ryan Shields MD [address] [place] [address], Level [address] [place] [address] documented as of this encounter Procedures Procedure Name Priority Date/Time Associated Diagnosis Comments ANESTHESIA INTUBATION Routine 03/17/2020 9:37 EDT ANESTHESIA SPINAL BLOCK Routine 03/17/2020 8:54 EDT documented in this encounter Results * SC AN ELECTIVE ENDOTRACHEAL AIRWAY (03/17/2020 9:37 EDT) Narrative Vita Middleton AA - 03/17/2020 9:37 EDT Vita Middleton AA ? 03/17/2020 ??9:38 Airway Date/Time: 03/17/2020 9:03 Urgency: elective Airway not difficult General Information and Staff Patient location during procedure: OR Performed: resident/TAXONOMIST/AA Indications and Patient Condition Indications for airway [...] mg documented in this encounter Care Teams Criminalist Relationship Specialty Start Date End Date Kylie Oglesby [address] [place] [address] PCP - General Internal Medicine - Primary Care 12/15/19 documented as of this encounter
--- OUTSIDE RECORDS SUMMARY | 2024-08-19 12:24 | XMS_ITS | Encounter Summary ---
Author Organization [facility] Address [address] [place] [address] Care Team Providers Care Refrigeration Engineering Teacher Name Role Phone Kylie Oglesby Primary Care Provider [phone] Reason for Visit * Reason Onset Date Comments Medications Refill 01/12/2020 Encounter Details Date Type Department Care Team (Late st Contact Info) Description 01/12/2020 Telephone [facility] U[facility] [address] [place], [place] [address] Cathryn Monzon, MANOJ [address] [place] [address] Medications Refill Social History Tobacco [...] COVID 19 exposure. * Telephone Encounter - Jose Styles - 01/12/2020 1214 EDT Pt has been [...] Procedure visit [facility] Neurology Clinic [address] [place], [place] [address] Ryan Shields MD [address] [place] [address], [facility] 5 [place] [address] documented as of this encounter Procedures Procedure Name Priority Date/Time Associated Diagnosis Comments BACTERIAL CULTURE, URINE Routine 03/01/2020 15:55 EDT Acute cystitis without hematuria documented in this encounter Results * (ABNORMAL) BACTERIAL CULTURE, URINE (03/01/2020 15:55 EDT) Organism ID Greater than 100,000 CFU/ml Enterobacter cloacae complex(A) VITEK SUSCEPTIBILITY 0 7:22 EDT [facility] Comment: Third generation cephalosporins, such as ceftazidime, ceftriaxone, and cefpodoxime, should be avoided for treatment of this organism regardless of in vitro susceptibility. Organism ID Greater than 100,000 CFU/ml Klebsiella pneumoniae(A) VITEK SUSCEPTIBILITY 0 7:22 EDT [facility] Comment: Cefazolin susceptibility results can [...] only cefpodoxime and cephalexin are on the [facility] inpatient formulary. Urine URINE SPECIMEN OBTAINED BY [...] VITEK SUSCEPTIBILITY <=20 ug/mL: Susceptible Cathryn Monzon NP MICROBIOLOGY - [facility] ORDERABLES [facility] [address] [place] [address] documented in this encounter Visit Diagnoses Diagnosis Acute cystitis without hematuria- Primary Acute cystitis documented in this encounter Care Teams Refrigeration Engineering Teacher Relationship Specialty Start Date End Date Kylie Oglesby [address] [place] [address] PCP - General Internal Medicine - Primary Care 12/15/19 documented as of this encounter
--- OUTSIDE RECORDS SUMMARY | 2024-08-19 12:24 | XMS_ITS | Encounter Summary ---
Author Organization [facility] Address [address] [place] [address] Care Team Providers Care Necktie Maker Name Role Phone Kylie Oglesby Primary Care Provider [phone] Encounter Details Date Type Department Care Team (Latest Contact Info) Description 03/03/2020 11:30 EDT - 03/04/2020 23:59 EDT Hospital Encounter [facility] Pre-Surgical Testing [address] [place], [place] [address] Discharge Disposition: Home or Self Care Social History Tobacco Use Types Packs/Day Years Used Date Smoking Tobacco: Former Cigarettes 1 5 - 1994 Smokeless Tobacco: Never [...] instruct them to call us back at [phone] to report symptoms If the patient answers [...] will be allowed into Preop, OR, or JOESPH GARCIA RN documented in this encounter Plan of Treatment Upcoming Encounters Date Type Department Care Team (Late st Contact Info) Description 08/25/2024 11:00 EDT Procedure visit [facility] Neurology Clinic [address] [place] [address] Ryan Shields MD 111 [facility], [facility] 5 [place] [address] documented as of this encounter Visit Diagnoses [...] documented as of this encounter Care Teams Necktie Maker Relationship Specialty Start Date End Date Kylie Oglesby [address] [place] [address] PCP - General Internal Medicine - Primary Care 12/15/19 documented as of this encounter
--- OUTSIDE RECORDS SUMMARY | 2024-08-19 12:24 | XMS_ITS | Encounter Summary ---
Author Organization [facility] Address [address] [place] [address] Care Team Providers Care Rehabilitation Specialist Name Role Phone Unknown, Provider Primary Care Provider Kylie Oglesby Primary Care Provider [phone] Encounter Details Date Type Department Care Team (Late st Contact Info) Description 12/14/2019 Results Only Imaging [facility] Radiology Results [address] [place] [address] Cathryn Monzon, MANOJ [address] [place] [address] Social History Tobacco Use Types [...] Info) Description 08/25/2024 11:00 EDT Procedure visit [facility] [address] [place], [place] [address] Ryan Shields MD 111 [facility], [facility] [address] [place] [address] documented as of this encounter Procedures Procedure Name Priority Date/Time Associated Diagnosis Comments CT ABDOMEN PELVIS W CONTRAST 12/14/2019 18:39 EST documented in this encounter Results * CT ABDOMEN PELVIS W CONTRAST (12/14/2019 18:39 EST) Anatomical Region Laterality Modality Computed Tomogra phy 12/14/2019 18:3 9 EST Narrative 12/14/2019 18:39 EST ? EXAM: CAT SCAN/ABDOMEN PELVIS WITH CONTRA EX. D/ (1759) ? CLINICAL INFORMATION: ? R39.9 RECURRENT UTI's, [...] CC: ? Transcribed Date/Time: 12/14/2019 (1838) ? Coal Handler: VRAD ? Printed Date/Time: 12/14/2019 (183) ? PAGE 2 ? Signed Report ? [...] Avalos MD CC: Transcribed Date/Time: 12/14/2019 (1838) Coal Handler: Printed Date/Time: 12/14/2019 (1838) PAGE 2 Signed Report Cathryn Monzon COMMUNITY ENGAGEMENT SPECIALIST IMG CT ORDERABLES documented in this encounter Visit Diagnoses Not on filedocumented in this encounter Care Teams Rehabilitation Specialist Relationship Specialty Start Date End Date Unknown, Provider, PCP - General 10/15/16 12/14/19 Kylie Oglesby [address] [facility] [place] [address] PCP - General Internal Medicine - Primary Care 12/15/19 documented as of this encounter
--- OUTSIDE RECORDS SUMMARY | 2024-08-19 12:24 | XMS_ITS | Encounter Summary ---
Author Organization [facility] Address [address] [place] [address] Care Team Providers Care Mud Mixer Name Role Phone Unknown, Provider Primary Care Provider Kylie Oglesby Primary Care Provider Encounter Details Date Type Department Care Team (Late st Contact Info) Description 12/01/2019 Historical Results Only [facility] - [address] [address] Cathryn Monzon NP [address] [place] [phone] Social History Tobacco Use Types Packs/Day [...] Info) Description 08/25/2024 11:00 EDT Procedure visit [facility] [address] [place] [address] Ryan Shields MD 111 [facility], [facility] [address] [place] [address] documented as of this encounter Procedures Procedure Name Priority Date/Time Associated Diagnosis Comments BACTERIAL CULTURE, URINE Routine 12/01/2019 16:48 EST documented in this encounter Results * BACTERIAL CULTURE, URINE (12/01/2019 16:48 EST) ESCHERIACHIA COLI - [facility] ESCHERICHIA COLI 12/03/2019 7:32 EST [facility] CitrateConcentration 10,000-100,00 0 CFU/ML 12/03/2019 7:32 [facility] 12/01/2019 16:4 8 EST 12/01/2019 17:38 EST Comment:VOID Narrative Organism Antibiotic Method Susceptibility Escherichia coli Ampicillin Sulbactam GRAM NEGAT BRIONAN SUSCEPTIBILITY - [facility] <=2: Susceptible Escherichia coli [...] [facility] <=1: Susceptible Comment:RECURRENT UTI Cathryn Monzon SECURITY SME MICROBIOLOGY - [facility] ORDERABLES [facility] documented in this encounter Visit Diagnoses Not on filedocumented in this encounter Care Teams Mud Mixer Relationship Specialty Start Date End Date Unknown, Provider, PCP - General 10/15/16 12/14/19 Kylie Oglesby [address] [place] [address] PCP - General Internal Medicine - Primary Care 12/15/19 documented as of this encounter
--- OUTSIDE RECORDS SUMMARY | 2024-08-19 12:24 | XMS_ITS | Encounter Summary ---
Author Organization [facility] Address [address] [place] [address] Care Team Providers Care Batch Plant Operator Name Role Phone Unknown, Provider Primary Care Provider Reason for Visit * (Routine) - Receiving Office to Obtain Authorization Specialty Diagnoses / Procedures Referred By Kavitha burgos Referred To Contact Procedures CT OUTSIDE IMAGES BODY Unknown, Provider, Referral ID Status Reason Start Date Expiration Date Visits Requested Visits Authorized [id number] Receiving Office to Obtain Authorization 12/16/2019 1 1 Encounter Details Date Type Department Care Team (Late st Contact Info) Description 05/07/2019 Hospital Encounter [facility] Radiology - Main [place] [address] [place], [place] [id number] Social History Tobacco Use Types Packs/Day Years [...] Info) Description 08/25/2024 11:00 EDT Procedure visit [facility] [address] [place] [address] Ryan Shields MD 111 [facility], Level [address] [place] [address] documented as of this encounter Procedures Procedure Name Priority Date/Time Associated Diagnosis Comments CT OUTSIDE IMAGES BODY Routine 12/16/2019 8:11 EST documented in this encounter Results * CT OUTSIDE IMAGES BODY (12/16/2019 8:11 EST) Narrative SAMEER - 12/16/2019 8:11 EST This is a non-reportable exam. Provider Unknown IMG OTHER IMAGING OR DERABLES Performing Organization Address City/State/[facility] Co de Phone Number BRAYAN documented in this encounter Visit Diagnoses Not on filedocumented in this encounter Care Teams Batch Plant Operator Relationship Specialty Start Date End Date Unknown, Provider, PCP - General 10/15/16 12/14/19 documented as of this encounter
--- OUTSIDE RECORDS SUMMARY | 2024-08-19 12:24 | XMS_ITS | Encounter Summary ---
Author Organization [facility] Address [address] [place] [address] Care Team Providers Care Log Loader Name Role Phone Unknown, Provider Primary Care Provider [phone] Encounter Details Date Type Department Care Team (Late st Contact Info) Description 10/15/2016 Results Only [facility] [phone] Thania Vasquez MD [address] [place] [phone] Social History Tobacco Use Types Packs/Day Years Used Date Smoking Tobacco: Never Assessed Sex and Gender Information Value Date Recorded Sex Assigned at Not on file Gender Identity Male 11/28/2019 13:59 EST Sexual Orientation Not on file documented as of this encounter Plan of Treatment Upcoming Encounters Date Type Department Care Team (Late st Contact Info) Description 08/25/2024 11:00 EDT Procedure visit [facility] [address] [place] [address] Ryan Shields MD 111 [facility], [facility] [address] [place] [phone] documented as of this encounter Procedures Procedure Name Priority Date/Time Associated Diagnosis Comments CYTOPATHOLOGY Routine 10/15/2016 0:00 EST documented in this encounter Results * CYTOPATHOLOGY (10/15/2016 0:00 EST) Pathologist [facility] Pathology Report: CYTOPATHOLOGY REPORT Reports generated via electronic interface contain original data; however they are lacking the format of the original report. Caution should be taken when reading/interpreti ng unformatted reports. Name: ? TRENTON RUBIO ? Accession #: ? [id number] : ? 1940 (Age: 76) ??M ?Collect [...] cellular enhancement technique. ? End of Report [facility] 10/15/2016 10/16/2016 8:4 3 EST Thania Vasquez MD PATHOLOGY ORDERABLE S [facility] [address] [place] [address] documented in this encounter Visit Diagnoses Not on filedocumented in this encounter Care Teams Log Loader Relationship Specialty Start Date End Date Unknown, Provider, PCP - General 10/15/16 12/14/19 documented as of this encounter
[2024-08-19 15:17] LABS: Abs Immature Grans 0.01 10^3/uL (0.0-0.06); Absolute Basophil Count 0.04 10^3/uL (0.0-0.2); Absolute Eosinophil Count 0.11 10^3/uL (0.0-0.7); Absolute Lymphocyte Count 2.14 10^3/uL (1.2-3.4); Absolute Monocyte Count 0.52 10^3/uL (0.1-0.8); Absolute Neutrophil Count 4.71 10^3/uL (1.2-6.7); Basophils % 0.5 %; Eosinophils % 1.5 %; HCT 52.4 % (40.0-50.0); HGB 17.6 g/dL (13.5-17.5); Immature Grans % 0.1 %; Lymphocytes % 28.4 %; MCH 32.7 pg (27.0-33.0); MCHC 33.6 % (32.0-36.0); MCV 97 fL (80-95); MPV 10.5 fL (8.0-11.0); Monocytes % 6.9 %; Neutrophils % 62.6 %; Platelet Count 254 10^3/uL (130-400); RBC 5.39 10^6/uL (4.36-5.78); RDW 12.7 % (11.8-14.1); RDW-SD 45.1 fL; WBC 7.53 10^3/uL (4.4-10.8)
== END 2024-08-19 12:22 | disposition home or self-care (01) ==
LOC: NCHCN 12:21
PROVIDERS: PCP Family Medicine; Visit Provider Internal Medicine
DX: D75.1 Secondary polycythemia (principal)
CPT/HCPCS: 85025

== ENCOUNTER 2024-09-16 11:03 | Outpatient (REF) | payer MEDICARE, BC, SELFPAY ==
--- OUTSIDE RECORDS SUMMARY | 2024-09-16 11:08 | XMS_ITS | Encounter Summary ---
Author Organization [facility] Address [address] [place] [address] Care Team Providers Care Nuclear Test Technician Name Role Phone Kylie Oglesby Primary Care Provider [phone] Encounter Details Date Type Department Care Team (Late st Contact Info) Description 09/03/2024 Lab Requisition [facility] Pathology & Laboratory Medicine - [facility] [address] [place] [address] Outr Resulting Lab, Provider Social History Tobacco [...] Recorded Sex Assigned at Not on file Legal Sex Male 16:12 EST Gender Identity Male 11/28/2019 13:59 EST Sexual Orientation Not on file documented as of this encounter Functional Status * Are you deaf or do you have serious difficulty hearing? Answer Date of Assessment Author No 03/17/2020 16:00 Toby Nix RN * Are you blind or do you have serious difficulty seeing, even when wearing glasses? Answer Date of Assessment Author No 03/17/2020 16:00 Toby Nix RN * Do you have serious difficulty walking or climbing stairs? (5 years old or older) Answer Date of Assessment Author No 03/17/2020 16:00 Toby Nix RN * Do you have difficulty dressing or bathing? (5 years old or older) Answer Date of Assessment Author No 03/17/2020 16:00 Toby Nix RN * Because of a physical, mental, or emotional condition, does this person have difficulty doing errands alone such as visiting a doctor's office or shopping? Answer Date of Assessment Author No 06/28/2020 14:32 Toby Nix RN documented as of this encounter Mental Status * Because of a physical, mental, or emotional condition, does this person have serious difficulty concentrating, remembering, or making decisions? Answer Entry Date Author No 06/28/2020 14:32 Toby Nix RN documented in this encounter Plan of Treatment Not on file documented as of this encounter Procedures Procedure Name Priority Date/Time Associated Diagnosis Comments SERUM FREE LIGHT CHAINS Routine 09/03/2024 7:44 EST documented in this encounter Results * (ABNORMAL) SERUM FREE LIGHT CHAINS (09/03/2024 7:44 EST) [place] Free [place] Chain 3.23(H) 0.33 - 1.94 mg/dL 09/04/2024 9:44 EST [facility] Lambda Free Lt Chain 1.86 0.57 - 2.63 mg/dL 09/04/2024 9:44 EST [facility] [place]/Lambda Ratio 1.74(H) 0.26 - 1.65 09/04/2024 9:44 EST [facility] Blood VENOUS BLOOD / Unknown 09/03/2024 7:44 EST 09/03/2024 17:51 EST us Provider Outr Resulting Lab CHEMISTRY & BLOOD GA S ORDERABLES Final Result [facility] [address] [place] [address] documented in this encounter Visit Diagnoses Not on filedocumented in this encounter Care Teams Nuclear Test Technician Relationship Specialty Start Date End Date Kylie Oglesby [address] [place] [address] PCP - General Internal Medicine - Primary Care 12/15/19 documented as of this encounter
--- OUTSIDE RECORDS SUMMARY | 2024-09-16 11:08 | XMS_ITS | Referral Summary ---
Author Organization [facility] Address [address] [place] [address] Care Team Providers Care Hourly Team Members Name Role Phone Kylie Oglesby Primary Care Provider [phone] Encounters Date Type Department Care Team Description 09/03/2024 Lab Requisition [facility] Pathology & Laboratory Medicine [address] [address] Outr Resulting Lab, Provider 09/03/2024 Lab Requisition [facility] Pathology & Laboratory [address] [address] Outr Resulting Lab, Provider 08/25/2024 11:00 EDT Procedure visit [facility] Clinic [address] [place] [address] Ryan Shields MD Polyneuropathy, peripheral sensorimotor axonal (Primary Dx); Lumbosacral radiculopathy at S1 from Last 3 Months Allergies Active Allergy Reactions Criticality Noted Date Comments Corticosteroids (Glucocorticoids) Other (See Comments) 12/01/2019 Paranoia, crazy Medications tamsulosin (FLOMAX) 0.4 mg capsule Take by mouth daily. 0 Active acetaminophen (TYLENOL) 325 mg tablet Take 1-2 Tabs by mouth every 4 hours as needed for Pain. 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 Overview (03/01/2020): Added automatically from request for surgery [id number] Diverticulitis 03/01/2020 Overview (03/01/2020): Added automatically from request for surgery [id number] Diverticulitis large intestine 02/18/2020 Immunizations Name Administration [...] Body Mass Index 25.56 06/28/2020 1432 EDT Functional Status * Are you deaf or [...] Author No 06/28/2020 14:32 Toby Nix RN Mental Status * Because of a physical, mental, or emotional condition, does this person have serious difficulty concentrating, remembering, or making decisions? Answer Entry Date Author No 06/28/2020 14:32 Toby Nix RN Plan of Treatment Not on file Medical Devices Implanted Type Area Scudding Inspector Device Identifier Shelf Expiration Date Model / Serial / Lot Evacuator Suction 100cc Silicone Closed Wound With Anti-Reflux Valve - [id number] Implanted:Qty: 1 on 03/17/2020 by Sara Mendez MD at [facility] Drain N/A: Abdomen [employer] [id number] 07/25/2022 [id number] / / [id number] Procedures Procedure Name Priority Date/Time Associated Diagnosis Comments SPEP WITH IMMUNOTYPING PERFORMABLE Today 09/03/2024 7:44 EST PROTEIN, TOTAL Today 09/03/2024 7:44 EST SPEP WITH IMMUNOTYPING Routine 09/03/2024 7:44 EST SERUM FREE LIGHT CHAINS Routine 09/03/2024 7:44 EST from Last 3 Months Results * (ABNORMAL) SPEP WITH IMMUNOTYPING PERFORMABLE (09/03/2024 7:44 EST) Albumin % 58.5 55.8 - 66.1 % 09/04/2024 15:04 [facility] Albumin g/dL 4.3 3.6 - 5.2 g/dL 09/04/2024 15:04 [facility] Alpha-1 % 3.5 2.9 - 4.9 % 09/04/2024 15:04 [facility] Alpha-1 g/dL 0.30 0.15 - 0.40 g/dL 09/04/2024 15:04 [facility] Alpha-2 % 10.4 7.1 - 11.8 % 09/04/2024 15:04 [facility] Alpha-2 g/dL 0.80 0.50 - 1.00 g/dL 09/04/2024 15:04 [facility] Beta % 13.7(H) 8.4 - 13.1 % 09/04/2024 15:04 [facility] Beta g/dL 1.00 0.60 - 1.20 g/dL 09/04/2024 15:04 [facility] Gamma % 13.9 11.1 - 18.8 % 09/04/2024 15:04 [facility] Gamma g/dL 1.00 0.60 - 1.60 g/dL 09/04/2024 15:04 [facility] SPEP Comment No apparent monoclonal protein seen on serum electrophoresis 09/04/2024 15:04 [facility] Comment:See scanned/suppleme ntary report. Immunotyping , Serum Current interpretation: Negative for monoclonal immunoglobulins. Reviewed by: Mala Toussaint PhD and Angel Hawk MD 09/04/2024 1433 09/04/2024 15:04 [facility] Total Protein 7.3 6.3 - 8.2 g/dL 09/04/2024 15:04 [facility] Blood VENOUS BLOOD / Unknown 09/03/2024 7:44 EST 09/03/2024 17:51 EST us Provider Outr Resulting Lab CHEMISTRY & BLOOD GA S ORDERABLES Final Result [facility] [address] [place], [place] [id number] * (ABNORMAL) SERUM FREE LIGHT CHAINS (09/03/2024 7:44 EST) [place] Free Lt Chain 3.23(H) 0.33 - 1.94 mg/dL 09/04/2024 9:44 EST [facility] Lambda Free Lt Chain 1.86 0.57 - 2.63 mg/dL 09/04/2024 9:44 EST [facility] [place]/Lambda Ratio 1.74(H) 0.26 - 1.65 09/04/2024 9:44 EST [facility] Blood VENOUS BLOOD / Unknown 09/03/2024 7:44 EST 09/03/2024 17:51 EST Provider Outr Resulting Lab CHEMISTRY & BLOOD GA S ORDERABLES Final Result Performing Organization Address [facility] Co de Phone Number [facility] [address] [place] [address] * PROTEIN, TOTAL (09/03/2024 7:44 EST) Blood VENOUS BLOOD / Unknown 09/03/2024 7:44 EST 09/03/2024 17:51 EST Provider Outr Resulting Lab CHEMISTRY & BLOOD GA S ORDERABLES Final Result Performing Organization Address City/[facility] Co de Phone Number [facility] [address] [place] [phone] from Last 3 Months Insurance [facility] [place] [facility] [place] [place] [facility] [place] [place] [facility] [place] Advance Directives For more information, please contact: [phone] Documents on File Type Date Recorded Patient Human Geography Instructor Expl anation Advance Directive 03/17/2020 7:05 AD/POA Advance Directive 03/18/2020 9:21 [place] Ad[place] ce Directive for Health Care-Signed 2015-06-03 Advance Directive 03/18/2020 9:21 Power Of Wrist Hemmer-Signed 2015-06-03 * Full Code (Latest Code Status [...] the discussion? Not Discusse d Care Teams Hourly Team Members Relationship Specialty Start Date End Date Kylie Oglesby [address] [place] [address] PCP - General Internal Medicine - Primary Care 12/15/19
--- OUTSIDE RECORDS SUMMARY | 2024-09-16 11:08 | XMS_ITS | Encounter Summary ---
Author Organization [facility] Address [address] [place] [address] Care Team Providers Care Fishing Tackle Repairer Name Role Phone Kylie Oglesby Primary Care Provider [phone] Reason for Referral * (Routine/Next Available) - Receiving Office to Obtain Authorization Specialty Diagnoses / Procedures Referred By Contac t Referred To Contact Procedures CT OUTSIDE IMAGES HEAD Imaging, External Referral ID Status Reason Start Date Expiration Date Visits Requested Visits Authorized [id number] Receiving Office to Obtain Authorization 01/11/2024 1 1 Reason for Visit * (Routine/Next Available) - Receiving Office to Obtain Authorization Specialty Diagnoses / Procedures Referred By Contac t Referred To Contact Procedures CT OUTSIDE IMAGES HEAD Imaging, External Referral ID Status Reason Start Date Expiration Date Visits Requested Visits Authorized [id number] Receiving Office to Obtain Authorization 01/11/2024 1 1 Encounter Details Date Type Department Care Team (Latest Contact Info) Description 01/11/2024 11:49 EDT - 01/11/2024 23:59 EDT Hospital Encounter [facility] Secondary Reads [place] Discharge Disposition: Home or Self Care Social History Tobacco Use Types Packs/Day Years Used Date Smoking Tobacco: Former Cigarettes 30 1 - 1994 Smokeless Tobacco: Never Alcohol [...] Toby Nix RN documented in this encounter Medications at Time of Discharge acetaminophen (TYLENOL) 325 mg tablet Take 1-2 [...] 11:50 EDT This is a non-reportable exam. us External Imaging IMG OTHER IMAGING ORDERABLES Fi nal Result documented in this encounter Visit Diagnoses Not on filedocumented in this encounter Care Teams Fishing Tackle Repairer Relationship Specialty Start Date End Date Kylie Oglesby [address] [place] [address] PCP - General Internal Medicine - Primary Care 12/15/19 documented as of this encounter
--- OUTSIDE RECORDS SUMMARY | 2024-09-16 11:08 | XMS_ITS | Clinical Summary ---
Author Organization [facility] Address [address] [place] [address] Care Team Providers Care Alpine Patroller Name Role Phone Kylie Oglesby Primary Care Provider [phone] Allergies Active Allergy Reactions Criticality Noted Date [...] (03/01/2020): Added automatically from request for surgery [id number] Diverticulitis 03/01/2020 Overview (03/01/2020): Added automatically from request for surgery [id number] Diverticulitis large intestine 02/18/2020 Encounters Date Type Department Care Team Description 09/03/2024 Lab Requisition [facility] [address] [address] Outr Resulting Lab, Provider 09/03/2024 Lab Requisition [facility] [address] [address] Outr Resulting Lab, Provider 08/25/2024 11:00 EDT Procedure visit [facility] [address] [place] [address] Ryan Shields MD Polyneuropathy, peripheral sensorimotor axonal (Primary Dx); Lumbosacral radiculopathy at S1 from Last 3 Months Immunizations Name Administration Dates Next Due Influenza Vaccine High Dose (FLUZONE HIGH DOSE) PF 0.7 ml IM (65 yrs+) 09/10/2019 Surgical History Surgery Date Site/Laterality Comments APPENDECTOMY 10/28/1945 - 10/27/1946 TONSILLECTOMY ~1946 Medical History Medical History Date Comments Colon polyp Frequent UTI started having i ssues [id number], never been hospitalized for uti Fistula colovesicular fi stula - diverticulitis Diverticulitis History of general anesthesia Edentulous no upper teeth, has natural teeth on the bottom Peripheral neuropathy 03/03/2020 ongoing issue Activity, other involving cardiorespiratory exercise 03/03/2020 gym daily, Greetz 1 mile, has not been able to [...] Health Maintenance Due Date Last Done Comments Fall Risk Screening 2006 RSV Immunization ( o r 60+ Years) (1 - 1-dose 75+ series) 2016 COVID-19 Vaccine (2023- season) 2024 Medical Devices Implanted Type Area Rider Ticket Worker Device Identifier Shelf Expiration Date Model / Serial / Lot Evacuator Suction 100cc Silicone Closed Wound With Anti-Reflux Valve - [id number] Implanted:Qty: 1 on 03/17/2020 by Sara Mendez MD at [facility] Drain N/A: Abdomen Docebo [id number] 07/25/2022 [id number] / / [id number] Procedures Procedure Name Priority Date/Time Associated Diagnosis Comments SPEP WITH IMMUNOTYPING PERFORMABLE Today 09/03/2024 7:44 EST PROTEIN, TOTAL Today 09/03/2024 7:44 EST SPEP WITH IMMUNOTYPING Routine 09/03/2024 7:44 EST SERUM FREE LIGHT CHAINS Routine 09/03/2024 7:44 EST from Last 3 Months Results * (ABNORMAL) SPEP WITH IMMUNOTYPING PERFORMABLE (09/03/2024 7:44 EST) Albumin % 58.5 55.8 - 66.1 % 09/04/2024 15:04 [facility] Albumin g/dL 4.3 3.6 - 5.2 g/dL 09/04/2024 15:04 [facility] Alpha-1 % 3.5 2.9 - 4.9 % 09/04/2024 15:04 [facility] Alpha-1 g/dL 0.30 0.15 - 0.40 g/dL 09/04/2024 15:04 [facility] Alpha-2 % 10.4 7.1 - 11.8 % 09/04/2024 15:04 [facility] Alpha-2 g/dL 0.80 0.50 - 1.00 g/dL 09/04/2024 15:04 [facility] Beta % 13.7(H) 8.4 - 13.1 % 09/04/2024 15:04 [facility] Beta g/dL 1.00 0.60 - 1.20 g/dL 09/04/2024 15:04 [facility] Gamma % 13.9 11.1 - 18.8 % 09/04/2024 15:04 [facility] Gamma g/dL 1.00 0.60 - 1.60 g/dL 09/04/2024 15:04 [facility] SPEP Comment No apparent monoclonal protein seen on serum electrophoresis 09/04/2024 15:04 [facility] Comment:See scanned/suppleme ntary report. Immunotyping , Serum Current interpretation: Negative for monoclonal immunoglobulins. Reviewed by: Mala Toussaint PhD and Angel Hawk MD 09/04/2024 1433 09/04/2024 15:04 [facility] Total Protein 7.3 6.3 - 8.2 g/dL 09/04/2024 15:04 [facility] Blood VENOUS BLOOD / Unknown 09/03/2024 7:44 EST 09/03/2024 17:51 EST us Provider Outr Resulting Lab CHEMISTRY & BLOOD GA S ORDERABLES Final Result [facility] [address] [place] [address] * (ABNORMAL) SERUM FREE LIGHT CHAINS (09/03/2024 7:44 EST) [place] Free Lt Chain 3.23(H) 0.33 - 1.94 mg/dL 09/04/2024 9:44 [facility] Lambda Free Lt Chain 1.86 0.57 - 2.63 mg/dL 09/04/2024 9:44 EST [facility] [place]/Lambda Ratio 1.74(H) 0.26 - 1.65 09/04/2024 9:44 EST [facility] Blood VENOUS BLOOD / Unknown 09/03/2024 7:44 EST 09/03/2024 17:51 EST us Provider Outr Resulting Lab CHEMISTRY & BLOOD GA S ORDERABLES Final Result Performing Organization Address City/[facility]/ZIP Co de Phone Number [facility] [address] [place] [address] * PROTEIN, TOTAL (09/03/2024 7:44 EST) Blood VENOUS BLOOD / Unknown 09/03/2024 7:44 EST 09/03/2024 17:51 EST us Provider Outr Resulting Lab CHEMISTRY & BLOOD GA S ORDERABLES Final Result Performing Organization Address [facility] Co de Phone Number [facility] [address], [place] [address] from Last 3 Months Insurance [facility] MEDICARE ACO [place] [facility] [place] [facility] Address: [address] [address] MEDIC[place] [facility] [place] [facility] Address: [address] [address] MEDICARE ACO [place] [facility] MED[place] [place]CO [place] Advance Directives For more information, please contact: [phone] Documents on File Type Date Recorded Patient Career Development Manager Expl anation Advance Directive 03/17/2020 7:05 AD/POA Advance Directive 03/18/2020 9:21 [place] Ad[place] ce Directive for Health Care-Signed 2015-06-03 Advance Directive 03/18/2020 9:21 Power Of Paper Cup Handle Machine Operator-Signed 2015-06-03 * Full Code (Latest Code Status [...] the discussion? Not Discusse d Care Teams Alpine Patroller Relationship Specialty Start Date End Date Kylie Oglesby [address] [place] [address] PCP - General Internal Medicine - Primary Care 12/15/19
--- OUTSIDE RECORDS SUMMARY | 2024-09-16 11:08 | XMS_ITS | Encounter Summary ---
Author Organization [facility] Address [address] [place] [address] Care Team Providers Care Peanut Grader Name Role Phone Kylie Oglesby Primary Care Provider [phone] Reason for Referral * Referral (48 Hrs (Urgent)) - Closed Specialty Diagnoses / Procedures Referred By Kavitha burgos Referred To Contact Diagnoses Colovesical fistula Es Peace, MANOJ Phone: tel: fax: Referral ID Status Reason Start Date Expiration Date V isits Requested Visits Authorized [id number] Closed Specialty Services Required 03/25/2020 1 1 Question Answer I certify that this patient is under my care and that I, or another Medicare allowed practitioner (DO AGUSTINA, CHAYITO) working with me, had a opdb-tx-slxu encounter with this patient on this date: 03/25/2020 I further certify that the hnjw-jj-yofj encounter was in whole or in part [...] Referred By Kavitha t Referred To Contact Es Peace NP Phone: tel: fax: Referral ID Status Reason Start Date Expiration Date Visits Requested Visits Authorized [id number] Receiving Office to Obtain Authorization Specialty Services Required 0 1 1 Comments Please call our clinic at [phone] to schedule a follow up appointment with your surgeon in 3-4 weeks. Call if you have any questions or concerns. * (Routine) - Receiving Office to Obtain Authorization Specialty Diagnoses / Procedures Referred By Kavitha burgos Referred To Contact Es Peace NP Phone: tel: fax: Referral ID Status Reason Start Date Expiration Date Visits Requested Visits Authorized [id number] Receiving Office to Obtain Authorization Specialty Services [...] Referred To Contact Diagnoses Colovesical fistula Procedures WI LAP,SURG,COLECTOMY, PARTIAL, W/ANAST Diagnostic laparoscopy with possible sigmoid colectomy Referral ID Status Reason Start Date Expiration Date Visits Re quested Visits Authorized [id number] 1 1 Encounter Details Date Type Department Care Team (Late st Contact Info) Description 03/17/2020 6:49 EDT - 03/26/2020 12:10 EDT Hospital Encounter [facility] General Surgery Unit [address] [place] [address] Sara Mendez MD [address] [facility] [address] [place] [address] Colovesical fistula (Primary Dx) Discharge Disposition: Home-Health Care Svc Social History Tobacco Use Types Packs/Day Years Used Date Smoking Tobacco: Former Cigarettes 1 965 1994 Smokeless Tobacco: Never Alcohol [...] EDT documented in this encounter Functional Status * Are you deaf or do you have serious difficulty hearing? Answer Date of Assessment Author No 03/17/2020 16:00 EDT Toby Contreras RN * Are you blind or do [...] of a physical, mental, or emotional condition, do you have difficulty doing errands alone such as visiting a doctor's office or shopping? (15 years old or older) Answer Date of Assessment Author No 03/17/2020 16:00 Toby Nix RN documented as of this encounter Mental Status * Because of a physical, mental, or emotional condition, do you have serious difficulty concentrating, remembering, or making decisions? (5 years old or older) Answer Entry Date Author No 03/17/2020 16:00 Toby Nix RN documented in this encounter Discharge Summaries * Jaguar Liang [...] 03/01/2020 Added automatically from request for surgery [id number] ??? Diverticulitis 03/01/2020 Added automatically from request for surgery [id number] Resolved Hospital Problems No resolved problems to [...] [Corticosteroids (Glucocorticoids)] Other (See Comments) Paranoia, edison Immunization History Administered Date(s) Administered ??? Influenza [...] BP Pulse Resp Temp SpO2 O2 Device 03/26/20712 -- -- -- -- -- None 03/26/20 0605 (!) 146/93 75 18 37.3 ??C (99.1 ??F) 97 % None 03/26/20 0127 109/67 60 16 36.9 ??C (98.4 ??F) 92 % None 03/25/202118 109/74 73 16 37.1 ??C (98.8 ??F) [...] Mendez MD [facility] (--) [address] [place] [id number] Follow-up appointments and procedures Amb Consult/Follow Up Home Health Services I certify that this patient is under my care and that I, or another Medicare authorized non-physician practitioner (PA or METAL NEUTRALIZER) or resident working with me, had a ggcj-vi-rmxh encounter with this patient on this date: 03/25/2020 I further certify that the imxr-mr-kgvx encounter was in whole or in part related to the reason thepatient needs home health care.: Yes The patient has had a reym-zt-hvwy visit by me or one of my [...] Follow-up Appointment Please call our clinic at [phone] to schedule a follow up appointment with [...] Peace APRN Richard Mendez, MD 03/26/2020 8:45 Cosigned by Sara Mendez MD at 03/26/2020 9:29 EDT Associated attestation - Sara Mendez MD - 03/26/2020 0929 EDT I saw and examined the patient and discussed with the resident/medical student/METAL NEUTRALIZER team. I agree with the findings and plan of care documented in the resident's/medical student's/METAL NEUTRALIZER's note. Sara Mendez Division of General Surgery [...] of this encounter Ordered Prescriptions Prescription Sig Dispense Quantity Refills Last Filled Start Date End Date acetaminophen (TYLENOL) 325 mg tablet Take 1-2 Tabs by mouth every 4 hours as needed for Pain. 03/25/2020 pantoprazole (PROTONIX) 40 mg tablet Take 1 Tab by mouth daily for 90 days. 90 Tab 03/27/2020 06/25/2020 documented in this encounter Discharge Disposition Disposition Code Departure Means Destination Home-Health Care Svc Home documented in this encounter Progress Notes * Muriel Gaona - 03/25/2020 1310 EDT CM Note Pt advancing diet; progressing with activity. He will dc home with SN and PT services when medically ready likely next 24-48 hours. HH agency is [facility]. Ami Gaona RN CCM 4010 * Korin Srivastava MD - 03/25/2020 4850 EDT Blue Surgery Progress Note Chief complaint: [...] General Surgery PGY2 X6298 * Es Peace, SUPERANNUATION CLERK - 03/24/2020 0822 EDT Surgery Daily Progress [...] fistula Added automatically from request for surgery [id number] ??? Diverticulitis Added automatically from request for surgery [id number] Jasbir Kate is a 79 y.o. male [...] Enoxaparin Es Peace APRN 03/24/2020 8:22 Pager #[phone] * Thania Landaverde 03/23/2020 1401 EDT Nutrition Note: Reason for Assessment: NPO/CL greater than/equal to 5 days Patient identified at risk due to NPO/CL day 6 today. Sounds to be having return of bowel function,NGT removed. Will continue to follow to see if needs full nutrition assessment. Thania Landaverde RD (Betsy), CD, [facility] B6 Dietitian Pager: [phone] * Jaguar Liang MD - 03/23/2020 0712 EDT Blue Surgery Progress Note Chief complaint: [...] Jaguar Liang MD General Surgery PGY2 X6298 Cosigned by Sara Mendez MD at 03/23/2020 7:56 EDT Associated attestation - Sara Mendez MD - 03/23/2020 8345 EDT Check drain creatinine, if ok, pull drain. I saw and examined the patient and discussed with the resident/medical student/METAL NEUTRALIZER team. I agree with the findings and plan of care documented in the resident's/medical student's/METAL NEUTRALIZER's note. Sara Mendez Division of General Surgery Colon and Rectal Surgery * Es Peace, SUPERANNUATION CLERK - 03/22/2020 0719 EDT Surgery Daily Progress [...] fistula Added automatically from request for surgery [id number] ??? Diverticulitis Added automatically from request for surgery [id number] ?? Jasbir Kate is a 79 y.o. [...] IS DVT Prophylaxis: Ambulate, SCD's, Enoxaparin Es Peace APRN 03/22/2020 7:19 Pager #[phone] Cosigned by Sara Mendez MD at 03/22/2020 7:55 EDT Associated attestation - Sara Mendez MD - 03/22/2020 8627 EDT + BM, continued flatus. Still distended, but much improved from Saturday. Will trial clamping, but will be slow to progress diet. Cystogram today. I saw and examined the patient and discussed with the resident/medical student/METAL NEUTRALIZER team. I agree with the findings and plan of care documented in the resident's/medical student's/METAL NEUTRALIZER's note. Sara Mendez Division of General Surgery [...] function Korin Srivastava MD General Surgery PGY1 X-0784 Attestation statement: I saw and examined the patient with the resident/fellow. I agree with the findings and plan of care documented in the resident's/fellow's note. Abdomen soft, slightly distended. NGT today. IVF. Keep kincaid in. Cystogram tomorrow. -Jett Bone MD * Korin Srivastava MD - 03/20/2020 0822 EDT Blue Surgery Progress Note Chief complaint: Colovesical Fistula Procedure: 03/17/2020 - Laparoscopic hand assisted sigmoid colectomy with rigid proctoscopy and flexible sigmoidoscopy with placement of 19Fr luis armando drain. 24 hour events: -Nausea and emesis this AM Subjective: [place] nauseous this morning and spit up what [...] function Korin Srivastava MD General Surgery PGY1 X-0664 * Jaguar Liang MD - 03/19/2020 0716 [...] Jaguar Liang MD General Surgery PGY2 X6298 Cosigned by Sara Mendez MD at 03/19/2020 8:49 EDT Associated attestation - Sara Mendez MD - 03/19/2020 0849 EDT Softly distended, not nauseated. + distant bowel sounds. OOB today. If nausea/vomiting, NG tube. Keep kincaid for colovesicular fistula Cysto study Saturday/Saturday I saw and examined the patient and discussed with the resident/medical student/METAL NEUTRALIZER team. I agree with the findings and plan of care documented in the resident's/medical student's/METAL NEUTRALIZER's note. Sara Mendez Division of General Surgery Colon and Rectal Surgery * Muriel Gaona - 03/18/2020 5951 EDT Initial Case Management/Social Work Assessment and Discharge Plan/Readmission Risk Assessment REASON FOR ADMISSION: Colovesical fistula now POD 1 sigmoidectomy and fistula takedown Patient understands reason for admission: Yes PATIENT CONTACT INFO VERIFIED: Yes PATIENT ADDRESS VERIFIED: Yes([address] [place] [address]) LIVING ARRANGEMENTS AND ACCESSIBILITY ISSUES: Living Arrangements: Spouse / significant other Levels: 1 Bathroom located on bedroom level?: Yes What in home social supports are available to the patient? Spouse / significant other Is 24/7 care available? Yes ADVANCED DIRECTIVES, POA &/or COLST IN PLACE: Healthcare Directive: Yes, patient has advance directive for healthcare treatment Type of Healthcare Directive: Durable power of state attorney for health care Copy in Chart: Yes, new copy in paper chart @ [facility] DIRECTIVES FOR FINANCES: TRANSPORTATION: Transportation: Family, Self CULTURAL, HOAHAOISM and/or LANGUAGE factors affecting health care/discharge planning: [...] Health Services: Nurse visit DME Provider: Pharmacy: [id number] - [place], [place] - [address] [facility] [address] [place] [facility] [address] [place] [address] Home Health: Referral to [facility] per pt preference Other: POST HOSPITAL [...] shower DVT Prophylaxis: Ambulate, SCD's, Enoxaparin at HS Es Peace APRN 03/18/2020 8:00 Pager #[phone] Cosigned by Sara Mendez MD at 03/19/2020 8:04 EDT Associated attestation - Sara Mendez MD - 03/19/2020 0804 EDT Distended, but minimally tender. Making good urine. No further fevers, treating UTI (present on admission from colovesicular fistula). I saw and examined the patient and discussed with the resident/medical student/METAL NEUTRALIZER team. I agree with the findings and plan of care documented in the resident's/medical student's/METAL NEUTRALIZER's note. Sara Mendez Division of General Surgery Colon and Rectal Surgery * Korin Srivastava MD - 03/17/2020 1054 EDT SURGERY POST-OP CHECK SUBJECTIVE: Is having lower abdominal pain near his incision, but states the pain has been relatively well controlled. Has not been OOB. Not passing flatus. Has tolerated sips of water without nauseaor vomiting. [place] chilled a couple hours ago, but feels [...] use Korin Srivastava MD 03/17/2020 15:55 Surgical Operations Administrative Assistant Pager #[phone] documented in this encounter H&P Notes * [...] been seen by the urology department at [facility] with Cathryn Monzon. She did [...] 25 years ago but has about a 67-cblc-sezx history. drinks wine daily. 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 He goes to the gym 3 times a week and either sits on the bike or the [employer] machine. He denies any chest pain with exertion, but does have some shortness of breath ifhe walks out 2 flights of stairs ?? Colonoscopy was about 2 to 3 years ago at [facility]. He states it was normal. He did [...] screened at designated points of entry to [facility] Patient and Family will be screened [...] to: PreOp TL, PreOp bedside RN, PACU plumber and tinner, Anesthesia and Surgeon. Managers as needed. ??? [...] dirty?? ) RN to receive patient from [facility] in [place] Precaution PPE and transport [...] unless special circumstances (Child, cognitive impairment, and supervisor roller shop). Pt temp: 36.5 Visitor Temp: Visitor Name: [...] surgeon consult No children <16 yo in [facility]. * OR Surgeon - Sara Mendez MD - 03/17/2020 0000 EDT OPERATIVE REPORT SERVICE DATE: 03/17/2020 SURGEON: Sara Mendez MD PUTTY GLAZER: Es Peace APRN (No qualified resident was [...] extensively and ensured hemostasis. We left a 19-Turkmen Luis Armando drain from the left lower [...] was closed with two #1 PDS in a running fashion. We injected 0.5% Marcaine with epinephrine into the subcutaneous spaces and approximated the skin with 4-0 Monocryl and Dermabond on top. All counts were correct x2. Unless otherwise noted, there were no complications, no blood loss, no cultures obtained, no specimens removed, and no drains retained. Sara Mendez MD 11 42 AM / Sara Mendez MD jn Confirmation: [id number] Dictation ID: [id number] documented in this encounter Miscellaneous Notes * Plan of Care - Rosalina Corona RN - 03/26/2020 1132 EDT Nursing Discharge Note D: Patient noted with discharge orders to: home. A: Prescriptions e-scripted. Reviewed discharge instructions and prescriptions with Patient. IV d/c'd. Belongings collected and sent home with patient. Report called to [facility]. Transition of care & AVS faxed. R: [...] Care - Renita Reid RN - 03/22/2020 5593 EDT Problem: Daily Care Plan Goals Goal: [...] Care - Moises Dent RN - 03/21/2020 5917 EDT Data: Pt on POD#4 from laparoscopic [...] Plan Documentation Outcome: Ongoing Flowsheets (Taken 03/19/2020 3134) Area of Focus: GI//Elimination Goal This Shift: [...] Care - Corey Bahena RN - 03/18/2020 0332 EDT Data: pt a/o x 3, s/p [...] notified. At 1741 temp was 102.[address] Liang came to the floor. Blood cultures, Urine, and abx ordered. UTI suspected. CTM Action: Frequent monitoring, medications per order, call judd and belongings within reach. Response: Pt remained safe on the unit this shift. DALIA LAWRENCE RN 03/17/2020 18:16 * Brief Op Note - Es Peace APRN - 03/17/2020 0754 EDT Date: 03/17/2020 Location: [facility] OR Name: Jasbir Kate, : 1940, Diagnosis Pre-op Diagnosis * Colovesical fistula [N32.1] * Diverticulitis [K57.92] Post-op Diagnosis * Colovesical fistula [N32.1] * Diverticulitis [K57.92] Procedures Diagnostic laparoscopy with possible sigmoid colectomy 49028 - WI LAP,SURG,COLECTOMY, PARTIAL, W/ANAST Laparoscopic hand assisted sigmoid colectomy with rigid proctoscopy and flexible sigmoidoscopy withplacement of 19Fr luis armando drain. Surgeons * Sara Mendez MD - Primary Procedure Summary Anesthesia: General ASA: ASA status not filed in the log. Estimated Blood Loss: 50cc Total IV Fluids: 700 mL Urine Output: 50cc Sheryl LDAs: PIV Staff: Financial Institution President: Valeria Gaspar RN Scrub Person: Vincelette, Adonay, RN Patient Clinical Services Assistant: Alexandrea García Indications: Tony Kate is [...] (No=0, Yes=1) Blood loss 0 (<500=0, 500-1000=1, 4316-5190=3, >2000=6) Duration of procedure 1(<2:00=0, 2:00-2:59=1, 3:00-3:59=2, [...] 10 - 26 mg/dL 03/24/2020 6:25 EDT [facility] Blood VENOUS BLOOD / Unknown Venipuncture / Unknown 03/24/2020 5:36 EDT 03/24/2020 5:56 EDT us Bahman Perez MD CHEMISTRY & BLOOD GAS ORDERABL ES Final Result Performing Organization Address [facility] de Phone Number [facility] [address] [place] [address] * (ABNORMAL) CALCIUM (03/24/2020 5:36 EDT) Calcium 8.2(L) 8.5 - 10.5 mg/dL 03/24/2020 6:25 EDT [facility] Calculated Calcium 9.2 8.5 - 10.5 mg/dL 03/24/2020 6:25 EDT [facility] Blood VENOUS BLOOD / Unknown Venipuncture / Unknown 03/24/2020 5:36 EDT 03/24/2020 5:56 EDT us Bahman Perez MD CHEMISTRY & BLOOD GAS ORDERABL ES Final Result Performing Organization Address [facility] de Phone Number [facility] [address] [place] [address] * (ABNORMAL) COMPLETE BLOOD COUNT AND DIFFERENTIAL (03/24/2020 5:36 EDT) WBC 8.68 4.00 - 10.40 K/cmm 03/24/2020 6:02 [facility] RBC 4.38 4.36 - 5.78 M/cmm 03/24/2020 6:02 [facility] Hemoglobin 14.1 13.8 - 17.3 gm/dL 03/24/2020 6:02 [facility] HCT 42.2 39.5 - 50.2 % 03/24/2020 6:02 [facility] MCV 96(H) 81 - 95 fl 03/24/2020 6:02 [facility] MCH 32.2 27.6 - 33.0 pg 03/24/2020 6:02 [facility] MCHC 33.4 32.8 - 36.4 gm/dL 03/24/2020 6:02 [facility] RDW-CV 12.2 <14.2 % 03/24/2020 6:02 [facility] RDW-SD 43.7 <46.0 fl 03/24/2020 6:02 [facility] PLT 265 141 - 377 K/cm 03/24/2020 6:02 [facility] MPV 10.2 9.5 - 12.7 fl 03/24/2020 6:02 [facility] % Neutrophils 72.3 % 03/24/2020 6:02 [facility] % Lymphocytes 17.1 % 03/24/2020 6:02 [facility] % Monocytes 7.1 % 03/24/2020 6:02 [facility] % Eosinophils 2.6 % 03/24/2020 6:02 [facility] % Basophils 0.3 % 03/24/2020 6:02 [facility] % Immature Grans 0.6 % 03/24/20 20 6:02 [facility] Absolute Neutrophils 6.27 2.20 - 8.85 K/cmm 03/24/2020 6:02 [facility] Absolute Lymphocytes 1.48 1.09 - 3.30 K/cmm 03/24/2020 6:02 [facility] Absolute Monocytes 0.62 0.10 - 0.80 K/cm 03/24/2020 6:02 [facility] Absolute Eosinophils 0.23 0.03 - 0.61 K/cmm 03/24/2020 6:02 [facility] ABS Basophils 0.03 0.01 - 0.11 K/cm 03/24/2020 6:02 [facility] Absolute Immature Grans 0.05 0.00 - 0.06 K/cmm 03/24/2020 6:02 [facility] Type of Differential: Auto 03/24/2020 6:02 EDT [facility] Blood VENOUS BLOOD / Unknown Venipuncture / Unknown 03/24/2020 5:36 EDT 03/24/2020 5:54 EDT us Bahman Perez MD PACKAGES & DNA PROBE ORDERABLE S Final Result Performing Organization Address [facility] de Phone Number [facility] [address] [place] [address] * CREATININE (03/24/2020 5:36 EDT) Creatinine 0.66 0.66 - 1.25 mg/dL 03/24/2020 6:25 EDT [facility] eGFR 93 >60 mL/min/1.7 3m2 03/24/2020 6:25 EDT [facility] Comment:eGFR calculated ernesto cee CKD-EPI equation for non- Americans. Multiply eGFR by 1.16 for patients. Blood VENOUS BLOOD / Unknown Venipuncture / Unknown 03/24/2020 5:36 EDT 03/24/2020 5:56 EDT us Bahman Perez MD CHEMISTRY & BLOOD GAS ORDERABL ES Final Result Performing Organization Address [facility] Co de Phone Number [facility] [address] [place] [address] * ELECTROLYTES (03/24/2020 5:36 EDT) Sodium 139 136 - 145 mEq/L 03/24/2020 6:25 EDT [facility] Potassium 3.9 3.5 - 5.0 mEq/L 03/24/2020 6:25 EDT [facility] Chloride 108 96 - 110 mEq/L 03/24/2020 6:25 EDT [facility] CO2 Total 23 22 - 32 mEq/L 03/24/2020 6:25 EDT [facility] Blood VENOUS BLOOD / Unknown Venipuncture / Unknown 03/24/2020 5:36 EDT 03/24/2020 5:56 EDT Bahman Perez MD CHEMISTRY & BLOOD GAS ORDERABL ES Final Result Performing Organization Address [facility]/ZIP Co de Phone Number [facility] [address] [place] [address] * MAGNESIUM (03/24/2020 5:36 EDT) Magnesium 2.4 1.7 - 2.8 mg/dL 03/24/2020 6:25 EDT [facility] Blood VENOUS BLOOD / Unknown Venipuncture / Unknown 03/24/2020 5:36 EDT 03/24/2020 5:56 EDT Bahman Perez MD CHEMISTRY & BLOOD GAS ORDERABL ES Final Result Performing Organization Address [facility] Co de Phone Number [facility] [address] [place] [address] * CREATININE, FLUID (03/23/2020 12:34 EDT) Creatinine, Fluid 0.66 See Note mg/dL 03/23/2020 14:55 EDT [facility] Comment: Peritoneal Fluid Reference range unavailable. Clinical correlation required. This Fluid Creatinine assay was developed and its performance characteristics determined by [facility]. ??It has not been cleared or approved by the [place] Food and Drug Administration. Fluid PERITONEAL FLUID / Unknown 03/23/2020 12:34 EDT 03/23/2020 14:35 EDT Jaguar Liang MD GEN LAB UNIT COLLECT ORDERABLE S Final Result Performing Organization Address [facility] Co de Phone Number [facility] [address] [place] [address] * HN LAB CBC SMEAR REVIEW (03/23/2020 7:48 EDT) Differential Comment Slide was examined by a technologist to verify the WBC and/or platelet count. 03/23/2020 8:42 EDT [facility] Blood VENOUS BLOOD / Unknown Venipuncture / Unknown 03/23/2020 7:48 EDT 03/23/2020 8:05 EDT us Clayton Reynoso MD HEMATOLOGY & PF4 ORDERABLES Final Result [facility] [address] [place] [address] * (ABNORMAL) COMPLETE BLOOD COUNT AND DIFFERENTIAL (03/23/2020 7:48 EDT) WBC 10.38 4.00 - 10.40 K/cmm 03/23/2020 8:43 EDT [facility] RBC 4.91 4.36 - 5.78 M/cmm 03/23/2020 8:43 EDT [facility] Hemoglobin 16.0 13.8 - 17.3 gm/dL 03/23/2020 8:43 T [facility] HCT 46.9 39.5 - 50.2 % 03/23/2020 8:43 [facility] MCV 96(H) 81 - 95 fl 03/23/2020 8:43 EDT [facility] MCH 32.6 27.6 - 33.0 pg 03/23/2020 8:43 EDT [facility] MCHC 34.1 32.8 - 36.4 gm/dL 03/23/2020 8:43 T [facility] RDW-CV 12.3 <14.2 % 03/23/2020 8:43 [facility] RDW-SD 42.5 <46.0 fl 03/23/2020 8:43 T [facility] PLT 03/23/2020 8:43 [facility] Comment:Unreportable due to presence of platelet clumps. MPV 03/23/2020 8:[facility]Not Available % Neutrophils 77.3 % 03/23/2020 8:43 [facility] % Lymphocytes 13.8 % 03/23/2020 8:43 [facility] % Monocytes 6.8 % 03/23/2020 8:43 [facility] % Eosinophils 1.2 % 03/23/2020 8:43 [facility] % Basophils 0.4 % 03/23/2020 8:43 EDT [facility] % Immature Grans 0.5 % 03/23/20 20 8:43 T [facility] Absolute Neutrophils 8.03 2.20 - 8.85 K/cmm 03/23/2020 8:43 T [facility] Absolute Lymphocytes 1.43 1.09 - 3.30 K/cmm 03/23/2020 8:43 T [facility] Absolute Monocytes 0.71 0.10 - 0.80 K/cm 03/23/2020 8:43 T [facility] Absolute Eosinophils 0.12 0.03 - 0.61 K/cm 03/23/2020 8:43 T [facility] ABS Basophils 0.04 0.01 - 0.11 K/cmm 03/23/2020 8:43 T [facility] Absolute Immature Grans 0.05 0.00 - 0.06 K/cmm 03/23/2020 8:43 EDT [facility] Type of Differential: Auto 03/23/2020 8:43 EDT [facility] Blood VENOUS BLOOD / Unknown Venipuncture / Unknown 03/23/2020 7:48 EDT 03/23/2020 8:05 EDT us Clayton Reynoso MD PACKAGES & DNA PROBE ORDERA BLES Final Result [facility] [address] [place] [address] * CALCIUM (03/23/2020 7:48 EDT) Calcium 8.7 8.5 - 10.5 mg/dL 03/23/2020 8:14 EDT [facility] Calculated Calcium 9.0 8.5 - 10.5 mg/dL 03/23/2020 8:14 EDT [facility] Blood VENOUS BLOOD / Unknown Venipuncture / Unknown 03/23/2020 7:48 EDT 03/23/2020 7:55 EDT us Clayton Reynoso MD CHEMISTRY & BLOOD GAS ORDER RENEE Final Result [facility] [address] [place] [address] * MAGNESIUM (03/23/2020 7:48 EDT) Magnesium 2.5 1.7 - 2.8 mg/dL 03/23/2020 8:14 EDT [facility] Blood VENOUS BLOOD / Unknown Venipuncture / Unknown 03/23/2020 7:48 EDT 03/23/2020 7:55 EDT Clayton Reynoso MD CHEMISTRY & BLOOD GAS ORDER RENEE Final Result Performing Organization Address [facility] de Phone Number [facility] [address] [place] [address] * (ABNORMAL) ELECTROLYTES (03/23/2020 7:48 EDT) Pathologist [facility] Sodium 143 136 - 145 mEq/L 03/23/2020 8:14 EDT [facility] Potassium 3.2(L) 3.5 - 5.0 mEq/L 03/23/2020 8:14 EDT [facility] Chloride 109 96 - 110 mEq/L 03/23/2020 8:14 EDT [facility] CO2 Total 25 22 - 32 mEq/L 03/23/2020 8:14 EDT [facility] Blood VENOUS BLOOD / Unknown Venipuncture / Unknown 03/23/2020 7:48 EDT 03/23/2020 7:55 EDT Clayton Reynoso MD CHEMISTRY & BLOOD GAS ORDER RENEE Final Result Performing Organization Address City/[facility]/ZIP Co de Phone Number [facility] [address] [place] [address] * (ABNORMAL) CREATININE (03/23/2020 7:48 EDT) Creatinine 0.62(L) 0.66 - 1.25 mg/dL 03/23/2020 8:14 EDT [facility] eGFR 95 >60 mL/min/1.7 3m2 03/23/2020 8:14 EDT [facility] Comment:eGFR calculated ernesto cee CKD-EPI equation for non- Americans. Multiply eGFR by 1.16 for patients. Blood VENOUS BLOOD / Unknown Venipuncture / Unknown 03/23/2020 7:48 EDT 03/23/2020 7:55 EDT Clayton Reynoso MD CHEMISTRY & BLOOD GAS ORDER RENEE Final Result Performing Organization Address City/[facility]/ZIP Co de Phone Number [facility] [address] [place] [address] * BUN (03/23/2020 7:48 EDT) BUN 16 10 - 26 mg/dL 03/23/2020 8:14 EDT [facility] Blood VENOUS BLOOD / Unknown Venipuncture / Unknown 03/23/2020 7:48 EDT 03/23/2020 7:55 EDT Clayton Reynoso MD CHEMISTRY & BLOOD GAS ORDER RENEE Final Result Performing Organization Address [facility] de Phone Number [facility] [address] [place] [address] * FL CYSTOGRAM (03/22/2020 9:43 EDT) Anatomical [...] bladder Comparison: CT abdomen pelvis 12/14/2019. FINDINGS: [employer] K[employer] film of the abdomen shows the [...] frombladder Comparison: CT abdomen pelvis 12/14/2019. FINDINGS: [employer] film of the abdomen shows the [...] the above interpretation andagree with the findings. us Korin Srivastava MD IM FLUOROSCOPY ORDERABLES Final Result * (ABNORMAL) COMPLETE BLOOD COUNT (03/19/2020 6:39 EDT) WBC 16.17(H) 4.00 - 10.40 K/cmm 03/19/2020 6:54 EDT [facility] RBC 5.19 4.36 - 5.78 M/cmm 03/19/2020 6:54 EDT [facility] Hemoglobin 16.7 13.8 - 17.3 gm/dL 03/19/2020 6:54 EDT [facility] HCT 49.2 39.5 - 50.2 % 03/19/2020 6:54 EDT [facility] MCV 95 81 - 95 fl 03/19/2020 6:54 EDT [facility] MCH 32.2 27.6 - 33.0 pg 03/19/2020 6:54 T [facility] MCHC 33.9 32.8 - 36.4 gm/dL 03/19/2020 6:54 EDT [facility] RDW-CV 12.4 <14.2 % 03/19/2020 6:54 EDT [facility] RDW-SD 43.0 <46.0 fl 03/19/2020 6:54 EDT [facility] PLT 233 141 - 377 K/cmm 03/19/2020 6:54 T [facility] MPV 10.4 9.5 - 12.7 fl 03/19/2020 6:54 T [facility] Blood VENOUS BLOOD / Unknown Venipuncture / Unknown 03/19/2020 6:39 EDT 03/19/2020 6:44 EDT us Clayton Reynoso MD HEMATOLOGY & PF4 ORDERABLES Final Result [facility] [address] [place] [address] * (ABNORMAL) ELECTROLYTES (03/19/2020 6:39 EDT) Sodium 138 136 - 145 mEq/L 03/19/2020 7:21 EDT [facility] Potassium 4.1 3.5 - 5.0 mEq/L 03/19/2020 7:21 EDT [facility] Chloride 106 96 - 110 mEq/L 03/19/2020 7:21 EDT [facility] CO2 Total 20(L) 22 - 32 mEq/L 03/19/2020 7:21 EDT [facility] Blood VENOUS BLOOD / Unknown Venipuncture / Unknown 03/19/2020 6:39 EDT 03/19/2020 6:51 EDT us Clayton Reynoso MD CHEMISTRY & BLOOD GAS ORDER RENEE Final Result Performing Organization Address [facility] Co de Phone Number [facility] [address] [place] [address] * (ABNORMAL) CREATININE (03/19/2020 6:39 EDT) Creatinine 0.63(L) 0.66 - 1.25 mg/dL 03/19/2020 7:21 EDT [facility] eGFR 94 >60 mL/min/1.7 3m2 03/19/2020 7:21 EDT [facility] Comment:eGFR calculated ernesto cee CKD-EPI equation for non- Americans. Multiply eGFR by 1.16 for patients. Blood VENOUS BLOOD / Unknown Venipuncture / Unknown 03/19/2020 6:39 EDT 03/19/2020 6:51 EDT us Clayton Reynoso MD CHEMISTRY & BLOOD GAS ORDER RENEE Final Result Performing Organization Address [facility] Co de Phone Number [facility] [address] [place] [address] * BUN (03/19/2020 6:39 EDT) BUN 14 10 - 26 mg/dL 03/19/2020 7:21 EDT [facility] Blood VENOUS BLOOD / Unknown Venipuncture / Unknown 03/19/2020 6:39 EDT 03/19/2020 6:51 EDT us Clayton Reynoso MD CHEMISTRY & BLOOD GAS ORDER RENEE Final Result [facility] [address] [place] [address] * (ABNORMAL) COMPLETE BLOOD COUNT (03/18/2020 18:25 EDT) WBC 14.98(H) 4.00 - 10.40 K/cmm 03/18/2020 18:39 EDT [facility] RBC 4.98 4.36 - 5.78 M/cmm 03/18/2020 18:39 EDT [facility] Hemoglobin 16.4 13.8 - 17.3 gm/dL 03/18/2020 18:39 T [facility] HCT 47.5 39.5 - 50.2 % 03/18/2020 18:39 T [facility] MCV 95 81 - 95 fl 03/18/2020 18:39 T [facility] MCH 32.9 27.6 - 33.0 pg 03/18/2020 18:39 T [facility] MCHC 34.5 32.8 - 36.4 gm/dL 03/18/2020 18:39 T [facility] RDW-CV 12.5 <14.2 % 03/18/2020 18:39 [facility] RDW-SD 43.9 <46.0 fl 03/18/2020 18:39 [facility] PLT 203 141 - 377 K/cmm 03/18/2020 18:39 [facility] MPV 10.3 9.5 - 12.7 fl 03/18/2020 18:39 T [facility] Blood VENOUS BLOOD / Unknown Venipuncture / Unknown 03/18/2020 18:25 EDT 03/18/2020 18:31 EDT us Clayton Reynoso MD HEMATOLOGY & PF4 ORDERABLES Final Result [facility] [address] [place] [address] * (ABNORMAL) COMPLETE BLOOD COUNT (03/18/2020 16:02 EDT) WBC 16.21(H) 4.00 - 10.40 K/cmm 03/18/2020 16:52 EDT [facility] RBC 5.27 4.36 - 5.78 M/cmm 03/18/2020 16:52 T [facility] Hemoglobin 17.2 13.8 - 17.3 gm/dL 03/18/2020 16:52 T [facility] HCT 50.9(H) 39.5 - 50.2 % 03/18/2020 16:52 EDT [facility] MCV 97(H) 81 - 95 fl 03/18/2020 16:52 EDT [facility] MCH 32.6 27.6 - 33.0 pg 03/18/2020 16:52 [facility] MCHC 33.8 32.8 - 36.4 gm/dL 03/18/2020 16:52 [facility] RDW-CV 12.5 <14.2 % 03/18/2020 16:52 [facility] RDW-SD 45.0 <46.0 fl 03/18/2020 16:52 [facility] PLT 226 141 - 377 K/cmm 03/18/2020 16:52 [facility] MPV 10.4 9.5 - 12.7 fl 03/18/2020 16:52 [facility] Blood VENOUS BLOOD / Unknown Venipuncture / Unknown 03/18/2020 16:02 EDT 03/18/2020 16:32 EDT us Es Peace METAL NEUTRALIZER HEMATOLOGY & PF4 ORDERABLES F inal Result [facility] [address] [place] [address] * (ABNORMAL) CALCIUM (03/18/2020 6:55 EDT) Calcium 8.4(L) 8.5 - 10.5 mg/dL 03/18/2020 18:27 EDT [facility] Calculated Calcium 8.9 8.5 - 10.5 mg/dL 03/18/2020 18:27 [facility] Blood VENOUS BLOOD / Unknown Venipuncture / Unknown 03/18/2020 6:55 EDT 03/18/2020 7:04 EDT Clayton Reynoso MD CHEMISTRY & BLOOD GAS ORDER RENEE Final Result Performing Organization Address [facility] de Phone Number [facility] [address] [place] [address] * MAGNESIUM (03/18/2020 6:55 EDT) Magnesium 2.1 1.7 - 2.8 mg/dL 03/18/2020 18:27 EDT [facility] Blood VENOUS BLOOD / Unknown Venipuncture / Unknown 03/18/2020 6:55 EDT 03/18/2020 7:04 EDT Clayton Reynoso MD CHEMISTRY & BLOOD GAS ORDER RENEE Final Result Performing Organization Address [facility] de Phone Number [facility] [address] [place] [address] * (ABNORMAL) COMPLETE BLOOD COUNT AND DIFFERENTIAL (03/18/2020 6:55 EDT) WBC 11.94(H) 4.00 - 10.40 K/cmm 03/18/2020 7:14 [facility] RBC 4.65 4.36 - 5.78 M/cmm 03/18/2020 7:14 [facility] Hemoglobin 15.3 13.8 - 17.3 gm/dL 03/18/2020 7:14 [facility] HCT 44.3 39.5 - 50.2 % 03/18/2020 7:14 [facility] MCV 95 81 - 95 fl 03/18/2020 7:14 [facility] MCH 32.9 27.6 - 33.0 pg 03/18/2020 7:14 [facility] MCHC 34.5 32.8 - 36.4 gm/dL 03/18/2020 7:14 [facility] RDW-CV 12.5 <14.2 % 03/18/2020 7:14 [facility] RDW-SD 43.6 <46.0 fl 03/18/2020 7:14 [facility] PLT 184 141 - 377 K/cmm 03/18/2020 7:14 [facility] MPV 10.0 9.5 - 12.7 fl 03/18/2020 7:14 [facility] % Neutrophils 76.9 % 03/18/2020 7:14 [facility] % Lymphocytes 14.4 % 03/18/2020 7:14 [facility] % Monocytes 8.1 % 03/18/2020 7:14 [facility] % Eosinophils 0.1 % 03/18/2020 7:14 [facility] % Basophils 0.2 % 03/18/2020 7:14 [facility] % Immature Grans 0.3 % 03/18/20 7:14 [facility] Absolute Neutrophils 9.18(H) 2.20 - 8.85 K/cmm 03/18/2020 7:14 [facility] Absolute Lymphocytes 1.72 1.09 - 3.30 K/cmm 03/18/2020 7:14 [facility] Absolute Monocytes 0.97(H) 0.10 - 0.80 K/cmm 03/18/2020 7:14 [facility] Absolute Eosinophils 0.01(L) 0.03 - 0.61 K/cmm 03/18/2020 7:14 [facility] ABS Basophils 0.02 0.01 - 0.11 K/cmm 03/18/2020 7:14 [facility] Absolute Immature Grans 0.04 0.00 - 0.06 K/cmm 03/18/2020 7:14 [facility] Type of Differential: Auto 03/18/2020 7:14 [facility] Blood VENOUS BLOOD / Unknown Venipuncture / Unknown 03/18/2020 6:55 EDT 03/18/2020 7:06 EDT Es N Binhia METAL NEUTRALIZER PACKAGES & DNA PROBE ORDERABL ES Final Result Performing Organization Address City/[facility]/ZIP Co de Phone Number [facility] [address] [place] [address] * CREATININE (03/18/2020 6:55 EDT) Creatinine 0.79 0.66 - 1.25 mg/dL 03/18/2020 7:35 EDT [facility] eGFR 86 >60 mL/min/1.7 3m2 03/18/2020 7:35 EDT [facility] Comment:eGFR calculated ernesto cee CKD-EPI equation for non- Americans. Multiply eGFR by 1.16 for patients. Blood VENOUS BLOOD / Unknown Venipuncture / Unknown 03/18/2020 6:55 EDT 03/18/2020 7:04 EDT Es N Binhia METAL NEUTRALIZER CHEMISTRY & BLOOD GAS ORDERAB LES Final Result Performing Organization Address [facility]/ZIP Co de Phone Number [facility] [address] [place] [address] * BUN (03/18/2020 6:55 EDT) BUN 12 10 - 26 mg/dL 03/18/2020 7:35 EDT [facility] Blood VENOUS BLOOD / Unknown Venipuncture / Unknown 03/18/2020 6:55 EDT 03/18/2020 7:04 EDT Es N Mucia METAL NEUTRALIZER CHEMISTRY & BLOOD GAS ORDERAB LES Final Result [facility] [address] [place] [address] * (ABNORMAL) ELECTROLYTES (03/18/2020 6:55 EDT) Sodium 135(L) 136 - 145 mEq/L 03/18/2020 7:35 EDT [facility] Potassium 4.2 3.5 - 5.0 mEq/L 03/18/2020 7:35 EDT [facility] Chloride 104 96 - 110 mEq/L 03/18/2020 7:35 EDT [facility] CO2 Total 23 22 - 32 mEq/L 03/18/2020 7:35 EDT [facility] Blood VENOUS BLOOD / Unknown Venipuncture / Unknown 03/18/2020 6:55 EDT 03/18/2020 7:04 EDT us Es Peace METAL NEUTRALIZER CHEMISTRY & BLOOD GAS ORDERAB LES Final Result [facility] [address] [place] [address] * (ABNORMAL) SCREENING GLUCOSE (03/18/2020 6:55 EDT) Glucose, Screening 107(H) 70 - 100 mg/dL 03/18/2020 7:35 EDT [facility] Blood VENOUS BLOOD / Unknown Venipuncture / Unknown 03/18/2020 6:55 EDT 03/18/2020 7:04 EDT us Es Peace NP CHEMISTRY & BLOOD GAS ORDERAB LES Final Result Performing Organization Address City/[facility]/ZIP Co de Phone Number [facility] [address] [place] [address] * BACTERIAL CULTURE, BLOOD (03/17/2020 18:20 EDT) Organism ID No Growth at 5 days 03/22/2020 19:15 EDT [facility] Blood VENOUS BLOOD / Unknown Blood Culture / Unknown 03/17/2020 18:20 EDT 03/17/2020 19:10 EDT us Jaguar Liang MD MICROBIOLOGY - GENERAL ORDERAB LES Final Result [facility] [address] [place] [address] * BACTERIAL CULTURE, BLOOD (03/17/2020 18:13 EDT) Organism ID No Growth at 5 days 03/22/2020 19:15 EDT [facility] Blood VENOUS BLOOD / Unknown Blood Culture / Unknown 03/17/2020 18:13 EDT 03/17/2020 19:10 EDT us Jaguar Liang MD MICROBIOLOGY - GENERAL ORDERAB LES Final Result Performing Organization Address [facility]/ZIP Co de Phone Number [facility] [address] [place] [address] * BACTERIAL CULTURE, URINE (03/17/2020 17:59 EDT) Organism ID No Growth 03/19/2020 8:17 EDT [facility] Urine URINE SPECIMEN OBTAINED BY SINGLE CATHETERIZATION OF URINARY BLADDER / Unknown Urine Collect / Unknown 03/17/2020 17:59 EDT 03/17/2020 18:35 EDT us Jaguar Liang MD MICROBIOLOGY - GENERAL ORDERAB LES Final Result Performing Organization Address City/[facility] Co de Phone Number [facility] [address] [place] [address] * (ABNORMAL) URINE CHEMICAL (DIP) & SEDIMENT (MICRO) WITH REFLEX TO CULTURE (03/17/2020 17:59 EDT) Color UA Yellow Colorless, Yellow 03/17/2020 18:35 EDT [facility] Clarity UA Clear Clear 03/17/2020 18:35 EDT [facility] Glucose UA Negative Negative 03/17/2020 18:35 EDT [facility] Bilirubin UA Negative Negative 03/17/2020 18:35 T [facility] Ketones UA 1+(A) Negative 03/17/2020 18:35 T [facility] Specific [place], Urine 1.028 1.001 - 1.035 03/17/2020 18:35 T [facility] Blood UA 3+(A) Negative 03/17/2020 18:35 EDT [facility] Urobilinogen UA Normal Normal mg/dL 020 18:35 T [facility] Nitrite UA Negative Negative 03/17/2020 18:35 [facility] Leukocyte Esterase UA 2+(A) Negative 03/17/2020 18:35 [facility] Protein UA 2+(A) Negative 03/17/2020 18:35 [facility] pH, UA 6.0 4.6 - 8.0 03/17/2020 18:35 [facility] Urine RBC Count, Auto >50(A) 0 - 2 Cells/HPF 03/17/2020 18:35 [facility] Urine WBC Count, Auto >50(A) 0 - 3 Cells/HPF 03/17/2020 18:35 [facility] Urine Squamous Count, Auto None Seen None Seen Cells/HPF 03/17/2020 18:35 [facility] Urine Hyaline Cast Count, Auto <=10 <=10 Casts/LPF 03/17/2020 18:35 [facility] Urine Bacteria Count, Auto None Seen None Seen Bacteria/HPF 03/17/2020 18:35 [facility] Urine URINE SPECIMEN OBTAINED BY SINGLE CATHETERIZATION OF URINARY BLADDER / Unknown Urine Collect / Unknown 03/17/2020 17:59 EDT 03/17/2020 18:05 [facility] - 03/17/2020 18:35 EDT A Urine Culture test has been reflexively ordered based on result criteria from the Urine Sediment Analysis. Urine Sediment Analysis results are unreliable on urines that are unrefrigerated for >2 hrs or refrigerated >8 hrs. us Jaguar Liang MD URINALYSIS ORDERABLES Final Re sult [facility] [address] [place] [address] * SURGICAL PATHOLOGY (03/17/2020 10:30 EDT) Final Diagnosis A. 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 - Negative for dysplasia and malignancy. - Surgical resection margins viable. 03/22/2020 15:14 [facility] at 1514 Attestation There was significant resident/fellow involvement in the diagnostic evaluation of this case. By the signature below, the attending physician certifies that they have personally conducted a gross and/or microscopic examination of the described specimens and rendered or confirmed the above diagnosis. 03/22/2020 15:14 [facility] at 1514 Clinical History Colovesical fistula; diverticulitis 03/22/2020 15:14 T [facility] Gross Description A. Received in [...] surrounding mesentery reveals lobulated, yellow cut surfaces. Prom Burn Off Operator sections are submitted as follows: BLOCK HENSON A1- stapled margin, en face A2-A3- open margin, bisected, en face A4-A7- sections of diverticula A8- section of separate donut Kim Joel 03/18/2020 8:05 03/22/2020 15:14 T [facility] Resident/Vish w: Chance Crouch MD 03/22/2020 15:14 [facility] Scanned Images 03/22/2020 15:14 [facility] Tissue ENTIRE SIGMOID COLON / Unknown 03/17/2020 10:30 EDT 03/17/2020 16:33 EDT us Sara Mendez MD PATHOLOGY ORDERABLES Final Res ult [facility] [address] [place] [address] documented in this encounter Visit Diagnoses Diagnosis [...] on Sat03/17/20 at 1415, Until Discontinued, Routine 0203 (Not Given - Provider: Corey Bahena RN - Reason: Patient/family refused)0858 (Not Given - Provider: Moises Dent RN - Reason: Patient/family refused)1548 (Not Given - Provider: Moises Dent RN - Reason: Patient/family refused)2040 (Not Given - Provider: Thania Nowak RN - Reason: Patient/family refused) 0031 (Given - Provider: Thania Nowak, VIVEK)0639 (Given - Provider: Thania Nowak RN)1350 (Given - Provider: Rosalina Corona RN)2019 (Given - Provider: Natasha Baldwin RN) 0357 [...] Dent RN) 0953 (Given - Provider: Rosalina Corona RN) pantoprazole (PROTONIX) tablet 40 mg 40 mg, oral, DAILY, First dose on Sat03/26/20 at 0900, Until Discontinued, Routine 0838 (Given - Provider: Rosalina Corona, VIVEK) potassium chloride in water infusion 10 mEq (COMPLETED) 10 mEq, intravenous, NOW X1, 1 dose, On Tuyet 03/24/20 at 0945, Routine 1220 (Given - Provider: Moises Dent RN) tamsulosin (FLOMAX) capsule 0.4 mg 0.4 mg, oral, DAILY, First dose on Sat03/18/20 at 0900, Until Discontinued, Routine 1008 (Given - Provider: Moises Dent RN) 0953 (Given - Provider: Rosalina Corona RN) 0838 (Given - Provider: Rosalina Corona, VIVEK) [...] 02/26 documented in this encounter Care Teams Peanut Grader Relationship Specialty Start Date End Date Kylie Oglesby [address] [place] [address] PCP - General Internal Medicine - Primary Care 12/15/19 documented as of this encounter
--- OUTSIDE RECORDS SUMMARY | 2024-09-16 11:08 | XMS_ITS | Encounter Summary ---
Author Organization [facility] Address [address] [place] [address] Care Team Providers Care Supervisor Landscape Name Role Phone Kylie Oglesby Primary Care Provider [phone] Reason for Visit * Reason Onset Date Comments Medication Questions 07/05/2020 Encounter Details Date Type Department Care Team (Late st Contact Info) Description 07/05/2020 Telephone [facility] [address] [place] [address] James Chin MD [address] [facility] [place] [address] Medication Questions Social History Tobacco [...] Date of Assessment Author No 03/17/2020 16:00 SHET Toby Contreras RN * Because of a physical, mental, [...] Toby Nix RN documented in this encounter Miscellaneous Notes * Telephone Encounter [...] filedocumented in this encounter Care Teams Supervisor Landscape Relationship Specialty Start Date End Date Kylie Oglesby [address] [place] [address] PCP - General Internal Medicine - Primary Care 12/15/19 documented as of this encounter
--- OUTSIDE RECORDS SUMMARY | 2024-09-16 11:08 | XMS_ITS | Encounter Summary ---
Author Organization [facility] Address [address] [place] [address] Care Team Providers Care Electrician Sound Name Role Phone Kylie Oglesby Primary Care Provider [phone] Reason for Visit * Reason Comments Follow-up Encounter Details Date Type Department Care Team (Late st Contact Info) Description 06/28/2020 14:30 EDT Office Visit [facility] General Surgery - [facility] [address], [place] [id number] Sara Mendez MD [address] [facility], [address] [place] [address] Colovesical fistula (Primary Dx) Social [...] Toby Nix RN documented in this encounter Progress Notes * [...] been seen by the urology department at [facility] with Cathryn Monzon. 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 ??He denies any chest pain with exertion, but does have some shortness of breath if he walks out 2 flights of stairs ?? Colonoscopy was about 2 to 3 years ago at [facility]. ??He states it was normal. ??He [...] diverticulitis ??? Frequent UTI started having issues [id number], never been hospitalized for uti ??? History of general anesthesia ??? Peripheral neuropathy 03/03/2020 ongoing issue Past Surgical History: Procedure Laterality Date ??? APPENDECTOMY 1946 ??? TONSILLECTOMY ~1947 No family history on file. Objective: There [...] fistula documented in this encounter Care Teams Electrician Sound Relationship Specialty Start Date End Date Kylie Oglesby [address] [place] [address] PCP - General Internal Medicine - Primary Care 12/15/19 documented as of this encounter
--- OUTSIDE RECORDS SUMMARY | 2024-09-16 11:08 | XMS_ITS | Encounter Summary ---
Author Organization [facility] Address [address] [place] [address] Care Team Providers Care Lead Setter Name Role Phone Kylie Oglesby Primary Care Provider [phone] Encounter Details Date Type Department Care Team [...] on filedocumented in this encounter Care Teams Lead Setter Relationship Specialty Start Date End Date Kylie Oglesby [address] [facility] [place] [place] [address] PCP - General Internal Medicine - Primary Care 12/15/19 documented as of this encounter
--- OUTSIDE RECORDS SUMMARY | 2024-09-16 11:08 | XMS_ITS | Encounter Summary ---
Author Organization [facility] Address [address] [place] [address] Care Team Providers Care Gate Mortiser Operator Name Role Phone Kylie Oglesby Primary Care Provider Reason for Visit * Reason Comments EMG (Electomyography) * Consult, Test and Treat (Routine) - Authorization Not Required Specialty Diagnoses / Procedures Referred By [facility] Referred To Contact Neurology Diagnoses Polyneuropathy, unspecified Procedures EMG/NERVE CONDUCTION STUDY Kylie Oglesby [address] [place] [address] Phone: tel: fax: [facility] [address] [place] [address] Phone: tel: fax: Referral ID Status Reason Start Date Expiration Date Visits Requested Visits Authorized [id number] Authorization Not Required 1 1 Encounter Details Date Type Department Care Team (Late st Contact Info) Description 08/25/2024 11:00 EDT Procedure visit [facility] [address] [place] [address] Ryan Shields MD [address] [facility] [address] [place] [address] Polyneuropathy, peripheral sensorimotor axonal (Primary Dx); Lumbosacral radiculopathy at S1 Social History Tobacco Use Types Packs/Day Years [...] documented in this encounter Progress Notes * Ryan Shields MD - 08/25/2024 1100 EDT [facility] Clinical Neurophysiology Nerve Conduction and Electromyography Report PATIENT NAME: Jasbir Kate PATIENT : 1940 PCP: Kylie Oglesby DATE OF SERVICE: 08/23/2024 History: Jasbir Kate is a 84 y.o. right handed male who presents to EMG on referral by Kylie Oglesby MDfor evaluation of polyneuropathy. He has a past medical history of diverticulitis. Tony estimates that he first began developing numbness and tingling in his feet bilaterally sometimearound 3 years ago. As the years have progressed, his symptoms have ascended up his legs. He also describes burning and tingling in his feet bilaterally that worsens towards the end of the day. He is unable to feel alteration of temperature under his bare feet. If he stepped on something sharp or irregular he would have difficulty perceiving this. He is quite unsteady while walking at baseline. He denies any prominent weakness in his legs bilaterally. He has a longstanding history of low back pain but denies any radicular symptoms. Clinical Exam: Limbs studied were warmed if necessary with moist heat, and skin temperature of the lower extremities was measured at 32 deg C before starting the study. Motor : R L Deltoid (axillary C5,6) :5 :5 Biceps (MC C5,6) :5 :5 Triceps (radial C6,7,8) :5 :5 Wrist Extension/ECR (radial C6-8) :5 :5 Wrist Flexion/FCR (median/ulnar) :5 :5 Finger Extension (radial C7-8) :5 :5 Finger Flexion (ulnar/median) :5 :5 Thumb ABD/APB (median C8-T1) :5 :5 Interosseous (ulnar C8-T1) :5 :5 Hip Flexion (obt, femoral L2,3,4) :5 :5 Knee Extension (femoral L2,3,4) :5 :5 Knee Flexion (sciatic L4-S1) :5 :5 Dorsiflexion/ Tib Ant (D peroneal L4,5) :5 :5 Plantar flexion (Tibial, S. peroneal L5- S2) :5 :5 Tone: Normal Atrophy: Atrophy of the foot intrinsic muscles DTRs: R L Biceps C5/6 :1+ :1+ Triceps C6/7 :1+ :1+ Brachioradialis C5/6 : Areflexic : Areflexic Knee L3,4 : Areflexic : Areflexic Ankle S1,2 : Areflexic : Areflexic Babinski's :negative :negative Sensation: --Reduced vibratory perception in a gradient extending up to the knees. --Reduced sensory perception to light touch and pinprick extending to the mid shins Electrodiagnostic study results: Nerve Conduction: - The left tibial nerve CMAP recording from the abductor hallucis was absent - The right tibial nerve CMAP recording from the abductor hallucis was absent - The left peroneal nerve CMAP recorded from the extensor digitorum brevis was absent - The right peroneal nerve CMAP recorded from the extensor digitorum brevis was absent - The right ulnar CMAP recorded from the abductor digiti minimi showed normal amplitude, latency and conduction velocity. - The left sural SNAP was absent. - The right sural SNAP was absent. - The right radial SNAP was reduced in amplitude. EMG: - Needle study of the right gastrocnemius, left tibialis anterior, right tibialis anterior, left gastrocnemius, left vastus medialis and right gluteus fartun showed increased insertional activity with varying number of fibrillation potentials and positive sharp waves. On activation, reduced recruit ment was seen in the right gastrocnemius along with mild to moderately increased amplitude and duration in multiple muscle groups including the right gastrocnemius, left tibialis anterior and left gastrocnemius muscles. Muscles Studied: - Right lower extremity: Tibialis anterior, gastrocnemius, vastus medialis, gluteus medius and gluteus fartun - Left lower extremity: Tibialis anterior, gastrocnemius, vastus medialis, gluteus medius and gluteus fartun For waveforms/values/tables of EMG/nerve conduction study please see accompanying scanned document in the scans tab in EMR. Electrodiagnostic Impression: - This study was abnormal There is neurophysiologic evidence of: --A severe length-dependent sensorimotor axonal polyneuropathy --An active and chronic L5/S1 radiculopathy on the right Clinical Impression: The patient's history, clinical examination and neurophysiologic findings is suggestive of a sensorimotor axonal polyneuropathy that is severe and is affecting both the small and large sensory fibers. If the patient has not yet had an evaluation for potential etiologies, would consider sending off labs including: SPEP with immunofixation, vitamin B12, methylmalonic acid, TSH, A1c, free light chains, copper and vitamin E. For the patient's neuropathic pain, can consider an alternative neuropathic pain medication (he says that he has already tried gabapentin) including Lyrica, Cymbalta or nortriptyline. He may also benefit from a referral to physical therapy given his instability. I spent a total of 15 minutes on the date of this encounter meeting with the patient and reviewing documentation/coordinating care as described in the above note. This was separate from any procedures performed at the time of the visit. Ryan Shields MD documented in this encounter Plan of Treatment Not on file documented as of this encounter Visit Diagnoses Diagnosis Polyneuropathy, peripheral sensorimotor axonal- Primary Other specified idiopathic peripheral neuropathy Lumbosacral radiculopathy at S1 Thoracic or lumbosacral neuritis or radiculitis, unspecified documented in this encounter Care Teams Gate Mortiser Operator Relationship Specialty Start Date End Date Kylie Oglesby [address] [facility] [place] [address] PCP - General Internal Medicine - Primary Care 12/15/19 documented as of this encounter
--- OUTSIDE RECORDS SUMMARY | 2024-09-16 11:08 | XMS_ITS | Encounter Summary ---
Author Organization [facility] Address [address] [place] [address] Care Team Providers Care Mailhouse Operator Name Role Phone Kylie Oglesby Primary Care Provider [phone] Reason for Visit * Reason Comments Post-OP Follow Up Encounter Details Date Type Department Care Team (Late st Contact Info) Description 04/12/2020 15:30 EDT Post-op Visit [facility] General Surgery - [facility] [address] [place], [place] [address] Sara Mendez MD [address] [facility], Level [address] [place] [address] Colovesical fistula (Primary Dx) Social [...] of Assessment Author No 03/17/2020 16:00 Toby Nxi RN * Do you have difficulty dressing [...] been seen by the urology department at [facility] with Cathryn Monzon. 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 ??He denies any chest pain with exertion, but does have some shortness of breath if he walks out 2 flights of stairs ?? Colonoscopy was about 2 to 3 years ago at [facility]. ??He states it was normal. ??He did [...] diverticulitis ??? Frequent UTI started having issues [id number], never been hospitalized for uti ??? History [...] fistula documented in this encounter Care Teams Mailhouse Operator Relationship Specialty Start Date End Date Kylie Oglesby [address] [place] [address] [place] [address] PCP - General Internal Medicine - Primary Care 12/15/19 documented as of this encounter
--- OUTSIDE RECORDS SUMMARY | 2024-09-16 11:08 | XMS_ITS | Encounter Summary ---
Author Organization [facility] Address [address] [place] [address] Care Team Providers Care Manager Golf Name Role Phone Kylie Oglesby Primary Care Provider [phone] Encounter Details Date Type Department Care Team (Late st Contact Info) Description 09/03/2024 Lab Requisition [facility] Pathology & Laboratory Medicine - [facility] [address] [place] [address] Outr Resulting Lab, Provider Social History Tobacco [...] WITH IMMUNOTYPING PERFORMABLE Today 09/03/2024 7:44 EST SPEP WITH IMMUNOTYPING Routine 09/03/2024 7:44 EST PROTEIN, TOTAL Today 09/03/2024 7:44 EST documented in this encounter Results * (ABNORMAL) SPEP WITH IMMUNOTYPING PERFORMABLE (09/03/2024 7:44 EST) Albumin % 58.5 55.8 - 66.1 % 09/04/2024 15:04 [facility] Albumin g/dL 4.3 3.6 - 5.2 g/dL 09/04/2024 15:04 [facility] Alpha-1 % 3.5 2.9 - 4.9 % 09/04/2024 15:04 [facility] Alpha-1 g/dL 0.30 0.15 - 0.40 g/dL 09/04/2024 15:04 [facility] Alpha-2 % 10.4 7.1 - 11.8 % 09/04/2024 15:04 [facility] Alpha-2 g/dL 0.80 0.50 - 1.00 g/dL 09/04/2024 15:04 [facility] Beta % 13.7(H) 8.4 - 13.1 % 09/04/2024 15:04 [facility] Beta g/dL 1.00 0.60 - 1.20 g/dL 09/04/2024 15:04 [facility] Gamma % 13.9 11.1 - 18.8 % 09/04/2024 15:04 [facility] Gamma g/dL 1.00 0.60 - 1.60 g/dL 09/04/2024 15:04 [facility] SPEP Comment No apparent monoclonal protein seen on serum electrophoresis 09/04/2024 15:04 [facility] Comment:See scanned/suppleme ntary report. Immunotyping , Serum Current interpretation: Negative for monoclonal immunoglobulins. Reviewed by: Mala Toussaint PhD and Angel Hawk MD 09/04/2024 1433 09/04/2024 15:04 [facility] Total Protein 7.3 6.3 - 8.2 g/dL 09/04/2024 15:04 [facility] Blood VENOUS BLOOD / Unknown 09/03/2024 7:44 EST 09/03/2024 17:51 EST us Provider Outr Resulting Lab CHEMISTRY & BLOOD GA S ORDERABLES Final Result Performing Organization Address City/[facility]/ZIP Co de Phone Number [facility] [address] [place] [address] * PROTEIN, TOTAL (09/03/2024 7:44 EST) Blood VENOUS BLOOD / Unknown 09/03/2024 7:44 EST 09/03/2024 17:51 EST us Provider Outr Resulting Lab CHEMISTRY & BLOOD GA S ORDERABLES Final Result Performing Organization Address City/[facility]/ZIP Co de Phone Number [facility] [address] [place] [address] documented in this encounter Visit Diagnoses Not on filedocumented in this encounter Care Teams Manager Golf Relationship Specialty Start Date End Date Kylie Oglesby [address] [place] [address] PCP - General Internal Medicine - Primary Care 12/15/19 documented as of this encounter
--- OUTSIDE RECORDS SUMMARY | 2024-09-16 11:09 | XMS_ITS | Encounter Summary ---
Author Organization [facility] Address [address] [place] [address] Care Team Providers Care Transportation Services Representative Name Role Phone Kylie Oglesby Primary Care Provider [phone] Reason for Visit * Reason Onset Date Comments Patient Information Update 01/08/2020 Encounter Details Date Type Department Care Team (Late st Contact Info) Description 01/08/2020 Telephone [facility] General Surgery - [facility] [address] [place], [place] [id number] Sara Mendez MD 111 [facility], [address] [place] [address] Patient Information Update Social History Tobacco Use Types Packs/Day Years Used Date Smoking Tobacco: Former Cigarettes 2 26 11 965 - 1994 Smokeless Tobacco: Never Sex [...] him I sent the Golytely to the Proviation's in [place] and he will pick it up today. [...] on filedocumented in this encounter Care Teams Transportation Services Representative Relationship Specialty Start Date End Date Kylie Oglesby [address] [place] [address] PCP - General Internal Medicine - Primary Care 12/15/19 documented as of this encounter
--- OUTSIDE RECORDS SUMMARY | 2024-09-16 11:09 | XMS_ITS | Encounter Summary ---
Author Organization [facility] Address [address] [place] [address] Care Team Providers Care Tree Cutter Name Role Phone Unknown, Provider Primary Care Provider Unava ilable Reason for Visit * Reason Onset Date Comments Labs Only 12/03/2019 Encounter Details Date Type Department Care Team (Late st Contact Info) Description 12/03/2019 Telephone [facility] [address] [place] [address] Bahman Anderson, RN Labs Only Social History [...] on filedocumented in this encounter Care Teams Tree Cutter Relationship Specialty Start Date End Date Unknown, Provider, PCP - General 10/15/16 12/14/19 documented as of this encounter
--- OUTSIDE RECORDS SUMMARY | 2024-09-16 11:09 | XMS_ITS | Encounter Summary ---
Author Organization [facility] Address [address] [place] [address] Care Team Providers Care Turkey Farmer Name Role Phone Kylie Oglesby Primary Care Provider [phone] Encounter Details Date Type Department Care Team (Late st Contact Info) Description 01/05/2020 Orders Only [facility] General Surgery - [facility] [address] [place] [address] Farheen Byers, RN [address] [place] [address] Social History Tobacco Use Types Packs/Day Years [...] Refills Last Filled Start Date End Date polyethylene glycol (GOLYTELY) 236-22.74-6.74 -5.86 gram suspension Patient to follow one time directions as directed by Dr Mendez office. 1 Bottle 01/05/2020 0 documented in this encounter Plan of Treatment Not on file documented as of this encounter Visit Diagnoses Not on filedocumented in this encounter Care Teams Turkey Farmer Relationship Specialty Start Date End Date Kylie Oglesby [address] [place] [address] PCP - General Internal Medicine - Primary Care 12/15/19 documented as of this encounter
--- OUTSIDE RECORDS SUMMARY | 2024-09-16 11:09 | XMS_ITS | Encounter Summary ---
Author Organization [facility] Address [address] [place] [address] Care Team Providers Care Advertising Manager Name Role Phone Kylie Oglesby Primary Care Provider [phone] Reason for Visit * Reason Onset Date Comments Medications Refill 01/12/2020 Encounter Details Date Type Department Care Team (Late st Contact Info) Description 01/12/2020 Telephone [facility] [address] [place], [place] [address] Cathryn Monzon, MANOJ [address] [place] [address] Medications Refill Social History Tobacco [...] COVID 19 exposure. * Telephone Encounter - Styles, Jose - 01/12/2020 1214 EDT Pt has [...] cloacae complex(A) VITEK SUSCEPTIBILITY 0 7:22 EDT [facility] Comment: Third generation cephalosporins, such as ceftazidime, ceftriaxone, and cefpodoxime, should be avoided for treatment of this organism regardless of in vitro susceptibility. Organism ID Greater than 100,000 CFU/ml Klebsiella pneumoniae(A) VITEK SUSCEPTIBILITY 0 7:22 EDT [facility] Comment: Cefazolin susceptibility results can [...] only cefpodoxime and cephalexin are on the [facility] inpatient formulary. Urine URINE SPECIMEN OBTAINED [...] Trimethoprim-Sulfameth oxazole VITEK SUSCEPTIBILITY <=20 ug/mL: Susceptible us Cathryn Monzon NP MICROBIOLOGY - GENERAL KAT FRAIRE Final Result Performing Organization Address City/State/[facility] de Phone Number [facility] [address] [place] [address] documented in this encounter Visit Diagnoses Diagnosis Acute cystitis without hematuria- Primary Acute cystitis documented in this encounter Care Teams Advertising Manager Relationship Specialty Start Date End Date Kylie Oglesby [address] [place] [address] PCP - General Internal Medicine - Primary Care 12/15/19 documented as of this encounter
--- OUTSIDE RECORDS SUMMARY | 2024-09-16 11:09 | XMS_ITS | Encounter Summary ---
Author Organization [facility] Address [address] [place] [address] Care Team Providers Care Commercial Attache Name Role Phone Unknown, Provider Primary Care Provider Unava ilable Encounter Details Date Type Department Care Team (Late st Contact Info) Description 12/08/2019 Orders Only [facility] [address] [place] [address] Cathryn Monzon, CUSTODIAL ENGINEER [address] [place] [address] Frequent UTI (Primary Dx) Social [...] 136 - 145 mEq/L 03/01/2020 16:59 EDT [facility] Potassium 4.5 3.5 - 5.0 mEq/L 03/01/2020 16:59 EDT [facility] Chloride 104 96 - 110 mEq/L 03/01/2020 16:59 EDT [facility] CO2 Total 27 22 - 32 mEq/L 03/01/2020 16:59 [facility] Glucose 86 70 - 100 mg/dL 03/01/2020 16:59 [facility] Calcium 9.9 8.5 - 10.5 mg/dL 03/01/2020 16:59 T [facility] Calculated Calcium 9.6 8.5 - 10.5 mg/dL 03/01/2020 16:59 [facility] BUN 15 10 - 26 mg/dL 03/01/2020 16:59 [facility] Creatinine 0.85 0.66 - 1.25 mg/dL 03/01/2020 16:59 [facility] eGFR 83 >60 mL/min/1.7 3m2 03/01/2020 16:59 [facility] Comment:eGFR calculated ernesto cee CKD-EPI equation for non- Americans. Multiply eGFR by 1.16 for patients. Blood VENOUS BLOOD / Unknown Venipuncture / Unknown 03/01/2020 15:57 EDT 03/01/2020 16:26 EDT us Cathryn Monzon CUSTODIAL ENGINEER CHEMISTRY & BLOOD GAS ORDER RENEE Final Result [facility] [address] [place] [address] documented in this encounter Visit Diagnoses Diagnosis Frequent UTI- Primary Urinary tract infection, site not specified documented in this encounter Care Teams Commercial Attache Relationship Specialty Start Date End Date Unknown, Provider, PCP - General 10/15/16 12/14/19 documented as of this encounter
--- OUTSIDE RECORDS SUMMARY | 2024-09-16 11:09 | XMS_ITS | Encounter Summary ---
Author Organization [facility] Address [address] [place] [address] Care Team Providers Care Mate Ship Name Role Phone Kylie Oglesby Primary Care Provider [phone] Encounter Details Date Type Department Care Team (Late st Contact Info) Description 03/01/2020 16:00 EDT Phlebotomy Only [facility] 2 Phlebotomy [address] [place], [place] [address] Clam Shucking Machine Tender, Acc Phlebotomy Frequent UTI; Diverticulitis of large [...] 4.00 - 10.40 K/cmm 03/01/2020 16:42 EDT [facility] RBC 5.57 4.36 - 5.78 M/cmm 03/01/2020 16:42 EDT [facility] Hemoglobin 18.2(H) 13.8 - 17.3 gm/dL 03/01/2020 16:42 T [facility] HCT 53.6(H) 39.5 - 50.2 % 03/01/2020 16:42 [facility] MCV 96(H) 81 - 95 fl 03/01/2020 16:42 [facility] MCH 32.7 27.6 - 33.0 pg 03/01/2020 16:42 T [facility] MCHC 34.0 32.8 - 36.4 gm/dL 03/01/2020 16:42 [facility] RDW-CV 12.5 <14.2 % 03/01/2020 16:42 [facility] RDW-SD 44.4 <46.0 fl 03/01/2020 16:42 [facility] PLT 255 141 - 377 K/cmm 03/01/2020 16:42 [facility] MPV 10.4 9.5 - 12.7 fl 03/01/2020 16:42 [facility] Blood VENOUS BLOOD / Unknown Venipuncture / Unknown 03/01/2020 15:57 EDT 03/01/2020 16:26 EDT Sara Mendez MD HEMATOLOGY & PF4 ORDERABLES Fi nal Result [facility] [address] [place] [address] * BASIC METABOLIC PANEL (BMP) (03/01/2020 15:57 EDT) Sodium 140 136 - 145 mEq/L 03/01/2020 16:59 EDT [facility] Potassium 4.5 3.5 - 5.0 mEq/L 03/01/2020 16:59 T [facility] Chloride 104 96 - 110 mEq/L 03/01/2020 16:59 T [facility] CO2 Total 27 22 - 32 mEq/L 03/01/2020 16:59 [facility] Glucose 86 70 - 100 mg/dL 03/01/2020 16:59 [facility] Calcium 9.9 8.5 - 10.5 mg/dL 03/01/2020 16:59 [facility] Calculated Calcium 9.6 8.5 - 10.5 mg/dL 03/01/2020 16:59 [facility] BUN 15 10 - 26 mg/dL 03/01/2020 16:59 [facility] Creatinine 0.85 0.66 - 1.25 mg/dL 03/01/2020 16:59 [facility] eGFR 83 >60 mL/min/1.7 3m2 03/01/2020 16:59 [facility] Comment:eGFR calculated ernesto cee CKD-EPI equation for non- Americans. Multiply eGFR by 1.16 for patients. Blood VENOUS BLOOD / Unknown Venipuncture / Unknown 03/01/2020 15:57 EDT 03/01/2020 16:26 EDT us Cathryn Monzon PROFESSIONAL APPLICATION DESIGNER CHEMISTRY & BLOOD GAS ORDER RENEE Final Result [facility] [address] [place] [address] documented in this encounter Visit Diagnoses Diagnosis Frequent UTI Urinary tract infection, site not specified Diverticulitis of large intestine with abscess, unspecified bleeding status documented in this encounter Care Teams Mate Ship Relationship Specialty Start Date End Date Kylie Oglesby [address] [place] [address] PCP - General Internal Medicine - Primary Care 12/15/19 documented as of this encounter
--- OUTSIDE RECORDS SUMMARY | 2024-09-16 11:09 | XMS_ITS | Encounter Summary ---
Author Organization [facility] Address [address] [place] [address] Care Team Providers Care Field Scout Name Role Phone Unknown, Provider Primary Care Provider Unava ilable Encounter Details Date Type Department Care Team (Late st Contact Info) Description 10/15/2016 Results Only [facility] [phone] Thania Vasquez MD [address] [place] [address] [phone] Social History Tobacco Use Types Packs/Day Years [...] ? TRENTON RUBIO ? Accession #: ? [id number] : ? 1940 (Age: 76) ??M ?Collect [...] cellular enhancement technique. ? End of Report [facility] 10/15/2016 10/16/2016 8:4 3 EST us Thania Vasquez MD PATHOLOGY ORDERABLES Final Result [facility] [address] [place] [address] documented in this encounter Visit Diagnoses Not on filedocumented in this encounter Care Teams Field Scout Relationship Specialty Start Date End Date Unknown, Provider, PCP - General 10/15/16 12/14/19 documented as of this encounter
--- OUTSIDE RECORDS SUMMARY | 2024-09-16 11:09 | XMS_ITS | Encounter Summary ---
Author Organization [facility] Address [address] [place] [address] Care Team Providers Care Soldering Technician Name Role Phone Kylie Oglesby Primary Care Provider [phone] Encounter Details Date Type Department Care Team (Late st Contact Info) Description 03/14/2020 Lab Requisition [facility] Pathology & Laboratory Medicine - [address] [address] Outr Resulting Lab, Provider Social History Tobacco [...] - BROAD COVID TEST (03/14/2020 13:53 EDT) COVID-19 rt-PCR Result NEGATIVE Negative 03/15/2020 14:20 EDT [facility] Comment: 2019-novel Coronavirus (2019-nCoV) not [...] in accordance with CLIA regulations, College of [employer] (CAP) guidelines (Jan 14, 2020), and FDA guidance (Dec 26, 2019). This test is only for use under the Food and Drug Administration's Emergency Use Authorization. Swab ENTIRE NASOPHARYNX / Unknown 03/14/2020 13:53 EDT 03/14/2020 21:37 EDT us Provider Outr Resulting Lab MICROBIOLOGY - GENER AL ORDERABLES Final Result [facility] [place] * COVID-19 TESTING (03/14/2020 13:53 EDT) COVID-19 rt-PCR Result NEGATIVE Negative 03/15/2020 17:54 EDT [facility] Comment: 2019-novel Coronavirus (2019-nCoV) not [...] obtained via nasopharyngeal or oropharyngeal swabs in [facility], , M5, M6, saline, and MTM media. The [...] in accordance with CLIA regulations, College of [place] [employer]ologists (CAP) guidelines (Jan 14, 2020), and FDA guidance (Dec 26, 2019). This test is only for use under the Food and Drug Administration's Emergency Use Authorization. Performing Lab [facility] 03/15/2020 17:54 EDT [facility] Swab ENTIRE NASOPHARYNX / Unknown 03/14/2020 13:53 EDT 03/14/2020 21:37 EDT us Provider Outr Resulting Lab MICROBIOLOGY - GENER AL ORDERABLES Final Result [facility] [address] [place] [address] [facility] [place], [place] documented in this encounter Visit Diagnoses Not on filedocumented in this encounter Care Teams Soldering Technician Relationship Specialty Start Date End Date Kylie Oglesby [address] [facility] [address] PCP - General Internal Medicine - Primary Care 12/15/19 documented as of this encounter
--- OUTSIDE RECORDS SUMMARY | 2024-09-16 11:09 | XMS_ITS | Encounter Summary ---
Author Organization [facility] Address [address] [place] [address] Care Team Providers Care Associate Director Name Role Phone Kylie Oglesby Primary Care Provider [phone] Encounter Details Date Type Department Care Team (Latest Contact Info) Description 03/03/2020 11:30 EDT - 03/04/2020 23:59 EDT Hospital Encounter [facility] Pre-Surgical Testing [address] [place], [place] [address] Discharge Disposition: Home or Self Care Social [...] directed day before surgery. 2 Tab 03/01/2020 0 chlorhexidine gluconate 4 % (E-Z SCRUB 107) sponge Use as directed in pre-op showering instructions. 2 Each 03/01/2020 0 metroNIDAZOLE (FLAGYL) 500 mg tablet Patient to take one tablet at 3 PM, 4 PM and 10 PM day before surgery. 3 Tab 03/01/2020 0 neomycin 500 mg tablet Patient to take 2 tablets at 3 PM, 4 PM and 10 PM day before surgery. 6 Tab 03/01/2020 0 pantoprazole (PROTONIX) 40 mg tablet Take 1 Tab by mouth daily for 90 days. 90 Tab 03/27/2020 0 polyethylene glycol (GOLYTELY) 236-22.74-6.74 -5.86 gram suspension Patient to follow one time directions as directed by Dr Mendez office for surgery prep 1 Bottle 03/01/2020 0 documented as of this encounter Discharge Disposition Disposition Code Departure Means Destination Home or Self Care documented in this encounter OR Notes * Preprocedure Instructions - Fabby Garcia RN - 03/03/2020 1207 EDT Jasbir Kate [...] instruct them to call us back at [phone] to report symptoms If the patient answers [...] documented as of this encounter Care Teams Associate Director Relationship Specialty Start Date End Date Kylie Oglesby [address] [place] [address] PCP - General Internal Medicine - Primary Care 12/15/19 documented as of this encounter
--- OUTSIDE RECORDS SUMMARY | 2024-09-16 11:09 | XMS_ITS | Encounter Summary ---
Author Organization [facility] Address [address] [place] [address] Care Team Providers Care Media Promoter Name Role Phone Kylie Oglesby Primary Care Provider [phone] Reason for Visit * Reason Comments New Patient Visit colovesicu. fistula * Consult (Routine) - Specialty Report Received Specialty Diagnoses / Procedures Referred By Kavitha burgos Referred To Contact General Surgery Diagnoses Pneumaturia Recurrent UTI Cathryn Monzon, MANOJ Phone: tel: fax: Sara Mendez MD Phone: tel: fax: Referral ID Status Reason Start Date Expiration Date Visits Requested Visits Authorized [id number] Specialty Report Received Specialty Services Required 12/01/2019 1 1 Encounter Details Date Type Department Care Team (Late st Contact Info) Description 01/05/2020 10:00 EDT Office Visit [facility] General Surgery - [facility] [address] [place], [place] [address] Sara Mendez MD [address] [place] [address], [address] [place] [address] Pneumaturia (Primary Dx) Social History Tobacco Use Types Packs/Day Years Used Date Smoking Tobacco: Former Cigarettes 2 30 1 5 - 1994 Smokeless Tobacco: Never Sex and [...] been seen by the urology department at [facility] with Cathryn Monzon. She did a CT [...] 25 years ago but has about a 14-gshh-grlh history. drinks wine daily. 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 He goes to the gym 3 times a week and either sits on the bike or the elliptical machine. He denies any chest pain with exertion, but does have some shortness of breath ifhe walks out 2 flights of stairs Colonoscopy was about 2 to [address] [facility]. He states it was normal. He [...] urethra documented in this encounter Care Teams Media Promoter Relationship Specialty Start Date End Date Kylie Oglesby [address] [place] [address] PCP - General Internal Medicine - Primary Care 12/15/19 documented as of this encounter
--- OUTSIDE RECORDS SUMMARY | 2024-09-16 11:09 | XMS_ITS | Encounter Summary ---
Author Organization [facility] Address [address] [place] [address] Care Team Providers Care Gag Writer Name Role Phone Kylie Oglesby Primary Care Provider [phone] Encounter Details Date Type Department Care Team (Late st Contact Info) Description 03/01/2020 Orders Only [facility] General Surgery - [facility] [address] [place] [address] Farheen Byers, RN [address] [place] [address] Social History Tobacco Use Types Packs/Day Years [...] for surgery prep 1 Bottle 03/01/2020 0 chlorhexidine gluconate 4 % (E-Z SCRUB 107) sponge Use as directed in pre-op showering instructions. 2 Each 03/01/2020 0 neomycin 500 mg tablet Patient to take 2 tablets at 3 PM, 4 PM and 10 PM day before surgery. 6 Tab 03/01/2020 0 metroNIDAZOLE (FLAGYL) 500 mg tablet Patient to take one tablet at 3 PM, 4 PM and 10 PM day before surgery. 3 Tab 03/01/2020 0 bisacodyL (DULCOLAX) 5 mg EC tablet Patient to take as directed day before surgery. 2 Tab 03/01/2020 0 documented in this encounter Plan of Treatment Not on file documented as of this encounter Visit Diagnoses Not on filedocumented in this encounter Care Teams Gag Writer Relationship Specialty Start Date End Date Kylie Oglesby [address] [place] [address] PCP - General Internal Medicine - Primary Care 12/15/19 documented as of this encounter
--- OUTSIDE RECORDS SUMMARY | 2024-09-16 11:09 | XMS_ITS | Encounter Summary ---
Author Organization [facility] Address [address] [place] [address] Care Team Providers Care Tip Finisher Name Role Phone Unknown, Provider MD Primary Care Provider Unava ilable Reason for Referral * Consult (Routine) - Specialty Report Received Specialty Diagnoses / Procedures Referred By Contac t Referred To Contact General Surgery Diagnoses Pneumaturia Recurrent UTI Cathryn Monzon NP Phone: tel: fax: Sara Mendez MD Phone: tel: fax: Referral ID Status Reason Start Date Expiration Date Visits Requested Visits Authorized [id number] Specialty Report Received Specialty Services Required 12/01/2019 1 1 Question Answer Reason for Request: recurrent UTIs, pneumaturia, 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 * Radiology Services (Routine) - Specialty Report Received Specialty Diagnoses / Procedures Referred By Contac t Referred To Contact Diagnoses UTI symptoms Pneumaturia Procedures CT ABDOMEN PELVIS W CONTRAST Cathryn Monzon NP Phone: tel: fax: Referral ID Status Reason Start Date Expiration Date V isits Requested Visits Authorized [id number] Specialty Report Received 12/01/2019 1 1 Reason for Visit * Reason Comments Recurrent Urinary Tract Infection New Patient Visit Encounter Details Date Type Department Care Team (Late st Contact Info) Description 12/01/2019 14:30 EST Initial consult [facility] [address] [place] [address] Cathryn Monzon, MANAGER MONEY [address] [place] [address] Recurrent UTI (Primary Dx); UTI [...] Refills Last Filled Start Date End Date nitrofurantoin (MACRODANTIN) 50 mg capsule Take 1 Cap by mouth at bedtime. Start the day after completing your full course of treatment 30 Cap 1 12/01/2019 0 nitrofurantoin, macrocrystal-monoh ydrate, (MACROBID) 100 mg capsule Take 1 Cap by mouth 2 times daily. 14 Cap 12/01/2019 0 documented in this encounter Progress Notes * Cathryn Monzon, HOGSHEAD MAT INSPECTOR - 12/01/2019 1430 EST Subjective: Patient ID: [...] abd/pelvis when he was seen in the [facility] ED for back pain in 04/2019, [...] see Dr. Mendez with colorectal surgery at [facility] for colonoscopy. His urine was sent [...] URINE / Unknown 12/01/2019 1 4:46 EST us Cathryn Monzon NP POINT OF CARE TEST ORDERABL ES Final Result POINT OF CARE [facility] documented in this encounter Visit Diagnoses Diagnosis Recurrent UTI- Primary Urinary tract infection, site not specified UTI symptoms Other symptoms involving urinary system Pneumaturia Other specified disorders of urethra documented in this encounter Historical Medications * This list may reflect changes made after this encounter. tamsulosin (FLOMAX) 0.4 mg capsule Take by mouth daily. 11/17/2019 cephALEXin (KEFLEX) 500 mg capsule TK 1 C PO TID 11/20/2019 03/03/2020 added in this encounter Care Teams Tip Finisher Relationship Specialty Start Date End Date Unknown, Provider, PCP - General 10/15/16 12/14/19 documented as of this encounter
--- OUTSIDE RECORDS SUMMARY | 2024-09-16 11:09 | XMS_ITS | Encounter Summary ---
Author Organization [facility] Address [address] [place] [address] Care Team Providers Care Aeronautical Products Sales Engineer Name Role Phone Kylie Oglesby Primary Care Provider [phone] Reason for Visit * Auth/Cert Specialty Diagnoses / Procedures Referred By Kavitha burgos Referred To Contact Diagnoses Colovesical fistula Procedures RI LAP,SURG,COLECTOMY, PARTIAL, W/ANAST Diagnostic laparoscopy with possible sigmoid colectomy Referral ID Status Reason Start Date Expiration Date Visits Re quested Visits Authorized [id number] 1 1 Encounter Details Date Type Department Care Team (Late st Contact Info) Description 03/17/2020 8:36 EDT Anesthesia Event [facility] OR [address] [place], [place] [address] James Vanessa MD [address] [facility] [address] [place] [address] Anesthesia Record Procedure Summary Procedure [...] by MD; 1; Superior, Midline; Abdomen; 19 Croatian (lalit); 03/23/20; 1751 03/17/20 0000 by Valeria Gaspar RN 03/23/20 1751 by January Pedro RN Urethral Catheter 03/17/20; 0910; Kimberlye [...] 6:49 EDT documented as of this encounter Mental Status * Because of a physical, mental, or emotional condition, do you have serious difficulty concentrating, remembering, or making decisions? (5 years old or older) Answer Entry Date Author No 03/17/2020 16:00 EDT Toby Contreras RN documented in this encounter OR Notes * Anesthesia Postprocedure [...] (See Comments) Paranoia, crazy Review of Systems Genitourinary: Positive for dysuria, [...] diverticulitis ??? Frequent UTI started having issues [id number], never been hospitalized for uti ??? History [...] instruct them to call us back at [phone] to report symptoms If the patient answers [...] Staff Patient location during procedure: OR Performed: resident/GRAIN PICKER/AA Indications and Patient Condition Indications for airway management: anesthesia and airway protection Sedation level: GA Preoxygenated: yes Patient position: sniffing Ventilation assessment: 0 - not attempted Final Airway Details Final airway type: endotracheal airway Successful airway: ETT Cuffed: yes Successful intubation technique: video laryngoscopy Eccles Blade: Ines Blade size: #3 ETT size [...] diverticulitis ??? Frequent UTI started having issues [id number], never been hospitalized for uti ??? History of general anesthesia ??? Peripheral neuropathy 03/03/2020 ongoing issue Relevant Problems No relevant active problems Physical Exam Airway Mallampati: II TM distance: <3 FB Neck ROM: full Cardiovascular Rate: normal Dental Comments: No top teeth Pulmonary Abdominal Anesthesia Plan ASA 2 Anesthesia Type - general PAT Note (Notes from 02/16/20 through 03/17/20) PAT Note by Chante Garcia RN at 03/03/2020 12:08 Version 1 of [...] instruct them to call us back at [phone] to report symptoms If the patient answers [...] GARCIA RN[TB.2] Attribution Castro TB.1 - Chante Garcia, RN on 03/03/2020 12:08 TB.2 - Chante Garcia, RN on 03/03/2020 12:09 documented in this encounter Plan of Treatment Not on file documented as of this encounter Procedures Procedure Name Priority Date/Time Associated Diagnosis Comments ANESTHESIA INTUBATION Routine 03/17/2020 9:37 EDT ANESTHESIA SPINAL BLOCK Routine 03/17/2020 8:54 EDT documented in this encounter Results * RI AN ELECTIVE ENDOTRACHEAL AIRWAY (03/17/2020 9:37 EDT) Narrative Vita Middleton AA - 03/17/2020 9:37 EDT Vita Middleton AA ? 03/17/2020 ??9:38 Airway Date/Time: 03/17/2020 9:03 Urgency: elective Airway not difficult General Information and Staff Patient location during procedure: OR Performed: resident/GRAIN PICKER/AA Indications and Patient Condition Indications for airway management: anesthesia and airway protection Sedation level: GA Preoxygenated: yes Patient position: sniffing Ventilation assessment: 0 - not attempted Final Airway Details Final airway type: endotracheal airway Successful airway: ETT Cuffed: yes Successful intubation technique: video laryngoscopy Eccles Blade: Ines Blade size: #3 ETT size (mm): 8.0 Cormack-Lehane Classification: grade I - full view of glottis Placement verified by: chest auscultation and capnometry Number of attempts at approach: 1 James Vanessa MD ANESTHESIA ORDERABLES Final Resu lt * Spinal Block (03/17/2020 8:54 EDT) Narrative [...] at surgeon's request, for post-op pain management us Carlos Fraser MD ANESTHESIA ORDERABLES Final R esult documented in this encounter Visit Diagnoses Not [...] mg documented in this encounter Care Teams Aeronautical Products Sales Engineer Relationship Specialty Start Date End Date Kylie Oglesby [address] [place] [address] PCP - General Internal Medicine - Primary Care 12/15/19 documented as of this encounter
--- OUTSIDE RECORDS SUMMARY | 2024-09-16 11:09 | XMS_ITS | Encounter Summary ---
Author Organization [facility] Address [address] [place] [address] Care Team Providers Care Fleet Salesperson Name Role Phone Unknown, Provider Primary Care [...] on filedocumented in this encounter Care Teams Fleet Salesperson Relationship Specialty Start Date End Date Unknown, Provider, PCP - General 10/15/16 12/14/19 documented as of this encounter
--- OUTSIDE RECORDS SUMMARY | 2024-09-16 11:09 | XMS_ITS | Encounter Summary ---
Author Organization [facility] Address [address] [place] [address] Care Team Providers Care Tacking Machine Operator Name Role Phone Unknown, Provider Primary Care Provider Unava ilable Encounter Details Date Type Department Care Team (Late st Contact Info) Description 12/14/2019 Results Only [facility] Urology - Medical Office Building [address] [facility], [address] [place], [place] [address] Cathryn Monzon NP [address] [place] [address] Social History Tobacco Use Types Packs/Day [...] PANEL (BMP) (12/14/2019 15:17 EST) BUN - [facility] 16 10 - 26 mg/dL 12/14/2019 15:45 EST [facility] CALCIUM - [facility] 9.5 8.5 - 10.5 mg/dL 12/14/2019 15:45 EST [facility] Chloride 104 96 - 110 mmol/L 12/14/2019 15:45 [facility] CO2 Total 26 21 - 32 mEq/L 12/14/2019 15:45 [facility] CREATININE 0.83 0.66 - 1.25 mg/dL 12/14/2019 15:45 [facility] eGFR >60 12/14/2019 15:45 [facility] Comment: Chronic renal impairment is defined as GFR <60 Multiply result by 1.210 for patients. Anion Gap 9 0 - 18 12/14/2019 15:45 [facility] GLUCOSE - [facility] 81 70 - 100 mg/dL 12/14/2019 15:45 [facility] Potassium 4.5 3.5 - 5.0 mEq/L 12/14/2019 15:45 [facility] Sodium 139 136 - 145 mEq/L 12/14/2019 15:45 [facility] 12/14/2019 15:1 7 EST 12/14/2019 15:17 EST us Cathryn Monzon EMERGENCY SPILL RESPONSE TECHNICIAN CHEMISTRY & BLOOD GAS ORDER RENEE Final Result [facility] documented in this encounter Visit Diagnoses Not on filedocumented in this encounter Care Teams Tacking Machine Operator Relationship Specialty Start Date End Date Unknown, Provider, PCP - General 10/15/16 12/14/19 documented as of this encounter
--- OUTSIDE RECORDS SUMMARY | 2024-09-16 11:09 | XMS_ITS | Encounter Summary ---
Author Organization [facility] Address [address] [place] [address] Care Team Providers Care Manager Clinical Applications Name Role Phone Kylie Oglesby Primary Care Provider [phone] Encounter Details Date Type Department Care Team [...] filedocumented in this encounter Care Teams Manager Clinical Applications Relationship Specialty Start Date End Date Kylie Oglesby [address] [place] [address] PCP - General Internal Medicine - Primary Care 12/15/19 documented as of this encounter
--- OUTSIDE RECORDS SUMMARY | 2024-09-16 11:09 | XMS_ITS | Encounter Summary ---
Author Organization [facility] Address [address] [place] [address] Care Team Providers Care [employer] Cannoneer Name Role Phone Kylie Oglesby Primary Care Provider [phone] Reason for Visit * Reason Onset Date Comments Appointment Related 12/15/2019 Encounter Details Date Type Department Care Team (Late st Contact Info) Description 12/15/2019 Telephone [facility] Urology - Medical Office Building [address], [address] [place], [place] [id number] Myah Garcia RN Appointment Related Social History [...] fax regarding getting this info faxed to [facility] and pushing images. * Telephone Encounter - Myah Garcia RN - 12/15/2019 1344 EST RON Tc from Marielena at 's office, Colorectal office who states a referral was rec'd from Abel Ervin. Marielena is requesting a report from a CT done at [facility] from 04/2019 and images pushed and a report and pathology from a Colonoscopy done in 's office, 2 years ago. (possibly from [place] [phone] and the fax number is [phone]. Pt has been seen by abel Ervin at [facility], not in this urology office at [facility]. Tc to Marielena to advise. documented in this encounter Plan of Treatment Not on file documented as of this encounter Visit Diagnoses Not on filedocumented in this encounter Care Teams Field Artillery Cannoneer Relationship Specialty Start Date End Date Kylie Oglesby [address] [place] [address] PCP - General Internal Medicine - Primary Care 12/15/19 documented as of this encounter
--- OUTSIDE RECORDS SUMMARY | 2024-09-16 11:09 | XMS_ITS | Encounter Summary ---
Author Organization [facility] Address [address] [place] [address] Care Team Providers Care Fire Extinguisher Technician Name Role Phone Kylie Oglesby Primary Care Provider [phone] Reason for Visit * Auth/Cert Specialty Diagnoses / Procedures Referred By Kavitha burgos Referred To Contact Diagnoses Colovesical fistula Procedures KS LAP,SURG,COLECTOMY, PARTIAL, W/ANAST Diagnostic laparoscopy with possible sigmoid colectomy Referral ID Status Reason Start Date Expiration Date Visits Re quested Visits Authorized [id number] 1 1 Encounter Details Date Type Department Care Team (Late st Contact Info) Description 03/17/2020 8:25 EDT - 03/17/2020 12:35 EDT Surgery [facility] OR [address] [place] [address] [phone] Sara Mendez MD [address] [place] [address], [facility], [address] [place] [address] Diagnostic laparoscopy with possible sigmoid colectomy [44897 (CPT??)] Surgery Details Date/Time Status Location OR Service Patient Class Case Class Case Type Trauma Case? 03/17/2020 0825 Posted [facility] OR [facility] 14 General Surgery Admit H - Elective [...] 03/17/2020 16:00 SHET Toby Contreras RN * Are you blind or do you have serious difficulty seeing, even when wearing glasses? Answer Date of Assessment Author No 03/17/2020 16:00 EDT Toby Contreras RN * Do you have serious difficulty walking or climbing stairs? (5 years old or older) Answer Date of Assessment Author No 03/17/2020 16:00 SHET Toby Contreras RN * Do you have difficulty dressing [...] in this encounter Discharge Summaries * Jaguar Laing MD - 03/26/2020 0845 EDT Surgery Discharge [...] 03/01/2020 Added automatically from request for surgery [id number] ??? Diverticulitis 03/01/2020 Added automatically from request for surgery [id number] Resolved Hospital Problems No resolved problems to [...] instilled as there was incontinence around the Kincadi catheter beyond this volume. 2. No evidence [...] Post Op Visit with Sara Mendez MD [facility] Surgery [facility] (--) [address] [facility] [address] Follow-up appointments and procedures Amb Consult/Follow Up Home Health Services I certify that this patient is under my care and that I, or another Medicare authorized non-physician practitioner (PA or METAL TILE SETTER) or resident working with me, had a mzcn-jj-idfn encounter with this patient on this date: 03/25/2020 I further certify that the bmbk-mc-eedq encounter was in whole or in part related to the reason thepatient needs home health care.: Yes The patient has had a wzqj-xm-cdwd visit by me or one of my [...] Skilled Care Requested: Physical Therapy Nursing asessment care home assessment needed related to this encounter: GI Status Physical therapy is needed for: Safety Strength Training/Exercise Program Gait/Mobility Assessment and Training Expected Discharge Date (Inpatient Only): 03/25/2020 Authorizing Provider: Es Peace APRN Follow-up Appointment Please call our clinic at [phone] to schedule a follow up appointment with [...] patient and discussed with the resident/medical student/METAL TILE SETTER team. I agree with the findings and plan of care documented in the resident's/medical student's/METAL TILE SETTER's note. Sara Mendez Division of General Surgery [...] Disposition Code Departure Means Destination Home-Health Care [facility] Home documented in this encounter Progress Notes * Muriel Gaona - 03/25/2020 1310 EDT CM Note Pt advancing diet; progressing with activity. He will dc home with SN and PT services when medically ready likely next 24-48 hours. agency is [facility]. Ami Gaona RN CCM [id number] * Korin Srivastava MD - 03/25/2020 0727 EDT Blue Surgery Progress Note Chief complaint: [...] General Surgery PGY2 [id number] * Es Peace, PROCESS ARCHITECT - 03/24/2020 0822 EDT Surgery Daily Progress [...] None Intake/Output Summary (Last 24 hours) at 03/24/2020821 Last data filed at 03/24/2020 0718 Gross per 24 hour Intake 3121.33 ml Output 1545 ml Net 1576.33 ml I&O By Type - 3 Shifts Including Current In: 2131.3 [P.O.:330; I.V.:1701.3; IV Piggyback:100] Out: 1350 [Urine:1350] Assessment: Active Hospital Problems Diagnosis ??? *Colovesical fistula Added automatically from request for surgery [id number] ??? Diverticulitis Added automatically from request for surgery [id number] Jasbir Kate is a 79 y.o. male [...] Enoxaparin Es Peace APRN 03/24/2020 8:22 Pager #[phone] * Thania Landaverde - 03/23/2020 1401 EDT Nutrition Note: Reason for Assessment: NPO/CL greater than/equal to 5 days Patient identified at risk due to NPO/CL day 6 today. Sounds to be having return of bowel function,NGT removed. Will continue to follow to see if needs full nutrition assessment. Thania Landaverde RD (Betsy), CD, [facility] B6 Dietitian Pager: [phone] * Jaguar Liang MD - 03/23/2020 1998 EDT Blue Surgery Progress Note Chief complaint: [...] attestation - Sara Mendez MD - 03/23/2020 7248 EDT Check drain creatinine, if ok, pull drain. I saw and examined the patient and discussed with the resident/medical student/METAL TILE SETTER team. I agree with the findings and plan of care documented in the resident's/medical student's/METAL TILE SETTER's note. Sara Mendez Division of General Surgery Colon and Rectal Surgery * Es Peace, PROCESS ARCHITECT - 03/22/2020 0719 EDT Surgery Daily Progress [...] fistula Added automatically from request for surgery [id number] ??? Diverticulitis Added automatically from request for surgery [id number] ?? Jasbir Kate is a 79 y.o. [...] Enoxaparin Es Peace APRN 03/22/2020 7:19 Pager #[phone] Cosigned by Sara Mendez MD at 03/22/2020 7:55 EDT Associated attestation - Sara Mendez MD - 03/22/2020 0755 EDT + BM, continued flatus. Still distended, but much improved from Saturday. Will trial clamping, but will be slow to progress diet. Cystogram today. I saw and examined the patient and discussed with the resident/medical student/METAL TILE SETTER team. I agree with the findings and plan of care documented in the resident's/medical student's/METAL TILE SETTER's note. Sara Mendez Division of General Surgery [...] Korin Srivastava MD General Surgery PGY1 X-[id number] Attestation statement: I saw and examined the patient with the resident/fellow. I agree with the findings and plan of care documented in the resident's/fellow's note. Abdomen soft, slightly distended. NGT today. IVF. Keep kincaid in. Cystogram tomorrow. -Jett Bone MD * Korin Srivastava MD - 03/20/2020 0734 EDT Blue Surgery Progress Note Chief complaint: Colovesical Fistula Procedure: 03/17/2020 - Laparoscopic hand assisted sigmoid colectomy with rigid proctoscopy and flexible sigmoidoscopy with placement of 19Fr luis armando drain. 24 hour events: -Nausea and emesis this AM Subjective: Merced nauseous this morning and spit up what [...] patient and discussed with the resident/medical student/METAL TILE SETTER team. I agree with the findings and plan of care documented in the resident's/medical student's/METAL TILE SETTER's note. Sara Mendez Division of General Surgery Colon and Rectal Surgery * Muriel Gaona - 03/18/2020 1545 EDT Initial Case Management/Social Work Assessment and Discharge Plan/Readmission Risk Assessment REASON FOR ADMISSION: Colovesical fistula now POD 1 sigmoidectomy and fistula takedown Patient understands reason for admission: Yes PATIENT CONTACT INFO VERIFIED: Yes PATIENT ADDRESS VERIFIED: Yes([address] [place] [address]) LIVING ARRANGEMENTS AND ACCESSIBILITY ISSUES: Living Arrangements: Spouse / significant other Levels: 1 Bathroom located on bedroom level?: Yes What in home social supports are available to the patient? Spouse / significant other Is / care available? Yes ADVANCED DIRECTIVES, POA &/or COLST IN PLACE: Healthcare Directive: Yes, patient has advance directive for healthcare treatment Type of Healthcare Directive: Durable power of hearing healthcare practitioner for health care Copy in Chart: Yes, new copy in paper chart @ [facility] DIRECTIVES FOR FINANCES: TRANSPORTATION: Transportation: Family, Self CULTURAL, ALEVISM and/or LANGUAGE factors affecting health care/discharge planning: [...] Health Services: Nurse visit DME Provider: Pharmacy: [id number] - [place], [place] - [address] [place] [address] Home Health: Referral to [facility] per pt preference Other: POST HOSPITAL TRANSITION PLAN: Pt lives with supportive spouse. Active and independent at baseline.CM following and will assist with dc plans as needed. Ami Gaona RN CCM 4010 03/18/2020 * Es Peace, PROCESS ARCHITECT - 03/18/2020 0800 EDT Surgery Daily Progress [...] fistula Added automatically from request for surgery [id number] ??? Diverticulitis Added automatically from request for surgery [id number] Jasbir Kate is a 79 y.o. male [...] DVT Prophylaxis: Ambulate, SCD's, Enoxaparin at Es Peace APRN 03/18/2020 8:00 Pager #[phone] Cosigned by Sara Mendez MD at 03/19/2020 8:04 EDT Associated attestation - Sara Mendez MD - 03/19/2020 0804 EDT Distended, but minimally tender. Making good urine. No further fevers, treating UTI (present on admission from colovesicular fistula). I saw and examined the patient and discussed with the resident/medical student/METAL TILE SETTER team. I agree with the findings and plan of care documented in the resident's/medical student's/METAL TILE SETTER's note. Sara Mendez Division of General Surgery Colon and Rectal Surgery * Korin Srivastava MD - 03/17/2020 8341 EDT SURGERY POST-OP CHECK SUBJECTIVE: Is having lower abdominal pain near his incision, but states the pain has been relatively well controlled. Has not been OOB. Not passing flatus. Has tolerated sips of water without nauseaor vomiting. Merced chilled a couple hours ago, but feels [...] use Korin Srivastava MD 03/17/2020 15:55 Surgical Bead Machine Operator Pager #[phone] documented in this encounter H&P Notes * [...] been seen by the urology department at [facility] with Cathryn Monzon. She did a [...] 25 years ago but has about a 60-tobd-nzbs history. drinks wine daily. 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 He goes to the gym 3 times a week and either sits on the bike or the elliptical machine. He denies any chest pain with exertion, but does have some shortness of breath ifhe walks out 2 flights of stairs ?? Colonoscopy was about 2 to [address] [facility]. He states it was normal. He [...] screened at designated points of entry to [facility] Patient and Family will be screened [...] to: PreOp TL, PreOp bedside RN, PACU technical support agent, Anesthesia and Surgeon. Managers as needed. ??? [...] dirty?? 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 Pt temp: 36.5 Visitor Temp: Visitor [...] SERVICE DATE: 03/17/2020 SURGEON: Sara Mendez MD ASSISTANT PROFESSOR OF EDUCATION: Es Peace APRN (No qualified resident was [...] pass it completely due to some tortuosity. Wethen entered the retrorectal space from above and [...] extensively and ensured hemostasis. We left a 19-Japanese Luis Armando drain from the left lower [...] AM / Sara Mendez MD jn Confirmation: [id number] Dictation ID: [id number] documented in this encounter Miscellaneous Notes * Plan of Care - Rosalina Corona RN - 03/26/2020 1132 EDT Nursing Discharge Note D: Patient noted with discharge orders to: home. A: Prescriptions e-scripted. Reviewed discharge instructions and prescriptions with Patient. IV d/c'd. Belongings collected and sent home with patient. Report called to [facility]. Transition of care & AVS faxed. R: Patient verbalized understanding of discharge instructions and denied further questions. Transport wheeled patient down to [facility] to meet ride. ROSALINA CORONA RN 03/26/2020 [...] lowest position and call judd within reach. COERY BAHENA RN 03/24/2020 4:21 * Plan of [...] Care - Renita Reid RN - 03/23/2020 5139 EDT Problem: Daily Care Plan Goals Goal: [...] Care - Keisha Shelley RN - 03/22/2020 1869 EDT Data: Pt A+Ox3. Denies pain throughout [...] Care - Renita Reid RN - 03/22/2020 0811 EDT Problem: Daily Care Plan Goals Goal: [...] Care - Moises Dent RN - 03/21/2020 7275 EDT Data: Pt on POD#4 from laparoscopic [...] prior to having kincaid catheter removed. Call pembrokemandeep nieves, will continue to monitor. MOISES DENT [...] Plan Documentation Outcome: Ongoing Flowsheets (Taken 03/19/2020 3393) Area of Focus: GI//Elimination Goal This Shift: [...] * Brief Op Note - Es Peace, PROCESS ARCHITECT - 03/17/2020 0754 EDT Date: 03/17/2020 Location: [facility] OR Name: Jasbir Kate, : 1940, Diagnosis Pre-op Diagnosis * Colovesical fistula [N32.1] * Diverticulitis [K57.92] Post-op Diagnosis * Colovesical fistula [N32.1] * Diverticulitis [K57.92] Procedures Diagnostic laparoscopy with possible sigmoid colectomy 66077 - KS LAP,SURG,COLECTOMY, PARTIAL, W/ANAST Laparoscopic hand assisted sigmoid colectomy with rigid proctoscopy and flexible sigmoidoscopy withplacement of 19Fr luis armando drain. Surgeons * Sara Mendez MD - Primary Procedure Summary Anesthesia: General ASA: ASA status not filed in the log. Estimated Blood Loss: 50cc Total IV Fluids: 700 mL Urine Output: 50cc Sheryl LDAs: PIV Staff: Coloring Checker: Valeria Gaspar RN Scrub Person: Adonay Madrid RN Patient Scarfer: Alexandrea García Indications: Tony Kate is an [...] (No=0, Yes=1) Blood loss 0 (<500=0, 500-1000=1, 1827-2602=3, >2000=6) Duration of procedure 1(<2:00=0, 2:00-2:59=1, 3:00-3:59=2, [...] 10 - 26 mg/dL 03/24/2020 6:25 EDT [facility] Blood VENOUS BLOOD / Unknown Venipuncture / Unknown 03/24/2020 5:36 EDT 03/24/2020 5:56 EDT us Bahman Perez MD CHEMISTRY & BLOOD GAS ORDERABL ES Final Result [facility] [address] [place] [address] * (ABNORMAL) CALCIUM (03/24/2020 5:36 EDT) Calcium 8.2(L) 8.5 - 10.5 mg/dL 03/24/2020 6:25 EDT [facility] Calculated Calcium 9.2 8.5 - 10.5 mg/dL 03/24/2020 6:25 [facility] Blood VENOUS BLOOD / Unknown Venipuncture / Unknown 03/24/2020 5:36 EDT 03/24/2020 5:56 EDT us Bahman Perez MD CHEMISTRY & BLOOD GAS ORDERABL ES Final Result [facility] [address] [place] [address] * (ABNORMAL) COMPLETE BLOOD COUNT AND DIFFERENTIAL (03/24/2020 5:36 EDT) WBC 8.68 4.00 - 10.40 K/cmm 03/24/2020 6:02 [facility] RBC 4.38 4.36 - 5.78 M/cmm 03/24/2020 6:02 [facility] Hemoglobin 14.1 13.8 - 17.3 gm/dL 03/24/2020 6:02 [facility] HCT 42.2 39.5 - 50.2 % 03/24/2020 6:02 [facility] MCV 96(H) 81 - 95 fl 03/24/2020 6:02 [facility] MCH 32.2 27.6 - 33.0 pg 03/24/2020 6:02 [facility] MCHC 33.4 32.8 - 36.4 gm/dL 03/24/2020 6:02 [facility] RDW-CV 12.2 <14.2 % 03/24/2020 6:02 [facility] RDW-SD 43.7 <46.0 fl 03/24/2020 6:02 [facility] PLT 265 141 - 377 K/cmm 03/24/2020 6:02 [facility] MPV 10.2 9.5 - 12.7 fl 03/24/2020 6:02 [facility] % Neutrophils 72.3 % 03/24/2020 6:02 [facility] % Lymphocytes 17.1 % 03/24/2020 6:02 [facility] % Monocytes 7.1 % 03/24/2020 6:02 [facility] % Eosinophils 2.6 % 03/24/2020 6:02 [facility] % Basophils 0.3 % 03/24/2020 6:02 [facility] % Immature Grans 0.6 % 03/24/20 20 6:02 [facility] Absolute Neutrophils 6.27 2.20 - 8.85 K/cmm 03/24/2020 6:02 [facility] Absolute Lymphocytes 1.48 1.09 - 3.30 K/cmm 03/24/2020 6:02 [facility] Absolute Monocytes 0.62 0.10 - 0.80 K/cmm 03/24/2020 6:02 [facility] Absolute Eosinophils 0.23 0.03 - 0.61 K/cmm 03/24/2020 6:02 [facility] ABS Basophils 0.03 0.01 - 0.11 K/cmm 03/24/2020 6:02 [facility] Absolute Immature Grans 0.05 0.00 - 0.06 K/cmm 03/24/2020 6:02 [facility] Type of Differential: Auto 03/24/2020 6:02 [facility] Blood VENOUS BLOOD / Unknown Venipuncture / Unknown 03/24/2020 5:36 EDT 03/24/2020 5:54 EDT us Bahman Perez MD PACKAGES & DNA PROBE ORDERABLE S Final Result [facility] [address] [place] [address] * CREATININE (03/24/2020 5:36 EDT) Creatinine 0.66 0.66 - 1.25 mg/dL 03/24/2020 6:25 EDT [facility] eGFR 93 >60 mL/min/1.7 3m2 03/24/2020 6:25 EDT [facility] Comment:eGFR calculated ernesto cee CKD-EPI equation for non- Americans. Multiply eGFR by 1.16 for patients. Blood VENOUS BLOOD / Unknown Venipuncture / Unknown 03/24/2020 5:36 EDT 03/24/2020 5:56 EDT Bahman Perez MD CHEMISTRY & BLOOD GAS ORDERABL ES Final Result Performing Organization Address City/[facility]/ZIP Co de Phone Number [facility] [address] [place] [address] * ELECTROLYTES (03/24/2020 5:36 EDT) Sodium 139 136 - 145 mEq/L 03/24/2020 6:25 EDT [facility] Potassium 3.9 3.5 - 5.0 mEq/L 03/24/2020 6:25 EDT [facility] Chloride 108 96 - 110 mEq/L 03/24/2020 6:25 EDT [facility] CO2 Total 23 22 - 32 mEq/L 03/24/2020 6:25 EDT [facility] Blood VENOUS BLOOD / Unknown Venipuncture / Unknown 03/24/2020 5:36 EDT 03/24/2020 5:56 EDT Bahman Perez MD CHEMISTRY & BLOOD GAS ORDERABL ES Final Result [facility] [address] [place] [address] * MAGNESIUM (03/24/2020 5:36 EDT) Magnesium 2.4 1.7 - 2.8 mg/dL 03/24/2020 6:25 EDT [facility] Blood VENOUS BLOOD / Unknown Venipuncture / Unknown 03/24/2020 5:36 EDT 03/24/2020 5:56 EDT us Bahman Perez MD CHEMISTRY & BLOOD GAS ORDERABL ES Final Result Performing Organization Address [facility] Co de Phone Number [facility] [address] [place] [address] * CREATININE, FLUID (03/23/2020 12:34 EDT) Creatinine, Fluid 0.66 See Note mg/dL 03/23/2020 14:55 EDT [facility] Comment: Peritoneal Fluid Reference range unavailable. Clinical correlation required. This Fluid Creatinine assay was developed and its performance characteristics determined by [facility]. ??It has not been cleared or approved by the [place] Food and Drug Administration. Fluid PERITONEAL FLUID / Unknown 03/23/2020 12:34 EDT 03/23/2020 14:35 EDT us Jaguar Liang MD GEN LAB UNIT COLLECT ORDERABLE S Final Result Performing Organization Address [facility] Co de Phone Number [facility] [address] [place] [address] * HN LAB CBC SMEAR REVIEW (03/23/2020 7:48 EDT) Differential Comment Slide was examined by a technologist to verify the WBC and/or platelet count. 03/23/2020 8:42 EDT [facility] Blood VENOUS BLOOD / Unknown Venipuncture / Unknown 03/23/2020 7:48 EDT 03/23/2020 8:05 EDT us Clayton Reynoso MD HEMATOLOGY & PF4 ORDERABLES Final Result Performing Organization Address [facility] Co de Phone Number [facility] [address] [place] [address] * (ABNORMAL) COMPLETE BLOOD COUNT AND DIFFERENTIAL (03/23/2020 7:48 EDT) WBC 10.38 4.00 - 10.40 K/cmm 03/23/2020 8:43 EDT [facility] RBC 4.91 4.36 - 5.78 M/cmm 03/23/2020 8:43 [facility] Hemoglobin 16.0 13.8 - 17.3 gm/dL 03/23/2020 8:43 [facility] HCT 46.9 39.5 - 50.2 % 03/23/2020 8:43 [facility] MCV 96(H) 81 - 95 fl 03/23/2020 8:43 [facility] MCH 32.6 27.6 - 33.0 pg 03/23/2020 8:43 [facility] MCHC 34.1 32.8 - 36.4 gm/dL 03/23/2020 8:43 [facility] RDW-CV 12.3 <14.2 % 03/23/2020 8:43 [facility] RDW-SD 42.5 <46.0 fl 03/23/2020 8:43 [facility] PLT 03/23/2020 8:43 [facility] Comment:Unreportable due to presence of platelet clumps. MPV 03/23/2020 8:43 [facility] Comment:Not Available % Neutrophils 77.3 % 03/23/2020 8:43 [facility] % Lymphocytes 13.8 % 03/23/2020 8:43 [facility] % Monocytes 6.8 % 03/23/2020 8:43 [facility] % Eosinophils 1.2 % 03/23/2020 8:43 [facility] % Basophils 0.4 % 03/23/2020 8:43 [facility] % Immature Grans 0.5 % 03/23/20 20 8:43 [facility] Absolute Neutrophils 8.03 2.20 - 8.85 K/cmm 03/23/2020 8:43 [facility] Absolute Lymphocytes 1.43 1.09 - 3.30 K/cmm 03/23/2020 8:43 [facility] Absolute Monocytes 0.71 0.10 - 0.80 K/cmm 03/23/2020 8:43 [facility] Absolute Eosinophils 0.12 0.03 - 0.61 K/cmm 03/23/2020 8:43 EDT [facility] ABS Basophils 0.04 0.01 - 0.11 K/cm 03/23/2020 8:43 EDT [facility] Absolute Immature Grans 0.05 0.00 - 0.06 K/cm 03/23/2020 8:43 EDT [facility] Type of Differential: Auto 03/23/2020 8:43 EDT [facility] Blood VENOUS BLOOD / Unknown Venipuncture / Unknown 03/23/2020 7:48 EDT 03/23/2020 8:05 EDT us Clayton Reynoso MD PACKAGES & DNA PROBE ORDERA BLES Final Result Performing Organization Address City/[facility]/ZIP Co de Phone Number [facility] [address] [place] [address] * CALCIUM (03/23/2020 7:48 EDT) Calcium 8.7 8.5 - 10.5 mg/dL 03/23/2020 8:14 EDT [facility] Calculated Calcium 9.0 8.5 - 10.5 mg/dL 03/23/2020 8:14 EDT [facility] Blood VENOUS BLOOD / Unknown Venipuncture / Unknown 03/23/2020 7:48 EDT 03/23/2020 7:55 EDT us Clayton Reynoso MD CHEMISTRY & BLOOD GAS ORDER RENEE Final Result [facility] [address] [place] [address] * MAGNESIUM (03/23/2020 7:48 EDT) Magnesium 2.5 1.7 - 2.8 mg/dL 03/23/2020 8:14 EDT [facility] Blood VENOUS BLOOD / Unknown Venipuncture / Unknown 03/23/2020 7:48 EDT 03/23/2020 7:55 EDT Clayton Reynoso MD CHEMISTRY & BLOOD GAS ORDER RENEE Final Result [facility] [address] [place] [address] * (ABNORMAL) ELECTROLYTES (03/23/2020 7:48 EDT) Sodium 143 136 - 145 mEq/L 03/23/2020 8:14 EDT [facility] Potassium 3.2(L) 3.5 - 5.0 mEq/L 03/23/2020 8:14 EDT [facility] Chloride 109 96 - 110 mEq/L 03/23/2020 8:14 EDT [facility] CO2 Total 25 22 - 32 mEq/L 03/23/2020 8:14 EDT [facility] Blood VENOUS BLOOD / Unknown Venipuncture / Unknown 03/23/2020 7:48 EDT 03/23/2020 7:55 EDT Clayton Reynoso MD CHEMISTRY & BLOOD GAS ORDER RENEE Final Result Performing Organization Address [facility] Co de Phone Number [facility] [address] [place] [address] * (ABNORMAL) CREATININE (03/23/2020 7:48 EDT) Creatinine 0.62(L) 0.66 - 1.25 mg/dL 03/23/2020 8:14 EDT [facility] eGFR 95 >60 mL/min/1.7 3m2 03/23/2020 8:14 EDT [facility] Comment:eGFR calculated ernesto cee CKD-EPI equation for non- Americans. Multiply eGFR by 1.16 for patients. Blood VENOUS BLOOD / Unknown Venipuncture / Unknown 03/23/2020 7:48 EDT 03/23/2020 7:55 EDT Clayton Reynoso MD CHEMISTRY & BLOOD GAS ORDER RENEE Final Result [facility] [address] [place] [id number] * BUN (03/23/2020 7:48 EDT) BUN 16 10 - 26 mg/dL 03/23/2020 8:14 EDT [facility] Blood VENOUS BLOOD / Unknown Venipuncture / Unknown 03/23/2020 7:48 EDT 03/23/2020 7:55 EDT us Clayton Reynoso MD CHEMISTRY & BLOOD GAS ORDER RENEE Final Result [facility] [address] [place] [address] * [place] CYSTOGRAM (03/22/2020 9:43 EDT) Anatomical [...] bladder Comparison: CT abdomen pelvis 12/14/2019. FINDINGS: Vegetable Tester KUB film of the abdomen shows the [...] was present for the procedure. Procedure Note D'Agostino, Jaime, MD - 03/22/2020 [place] CYSTOGRAM 03/22/2020 9:00 AM CLINICAL HISTORY: Status post sigmoidectomy for complicated diverticulitiswith colovesical fistula, evaluate for extravasation of contrast frombladder Comparison: CT abdomen pelvis 12/14/2019. FINDINGS: Vegetable Tester KUB film of the abdomen shows the [...] the findings. Korin Srivastava MD IM FLUOROSCOPY ORDERABLES Final Result * (ABNORMAL) COMPLETE BLOOD COUNT (03/19/2020 6:39 EDT) WBC 16.17(H) 4.00 - 10.40 K/cmm 03/19/2020 6:54 T [facility] RBC 5.19 4.36 - 5.78 M/cmm 03/19/2020 6:54 [facility] Hemoglobin 16.7 13.8 - 17.3 gm/dL 03/19/2020 6:54 [facility] HCT 49.2 39.5 - 50.2 % 03/19/2020 6:54 [facility] MCV 95 81 - 95 fl 03/19/2020 6:54 [facility] MCH 32.2 27.6 - 33.0 pg 03/19/2020 6:54 EDT [facility] MCHC 33.9 32.8 - 36.4 gm/dL 03/19/2020 6:54 EDT [facility] RDW-CV 12.4 <14.2 % 03/19/2020 6:54 EDT [facility] RDW-SD 43.0 <46.0 fl 03/19/2020 6:54 EDT [facility] PLT 233 141 - 377 K/cmm 03/19/2020 6:54 EDT [facility] MPV 10.4 9.5 - 12.7 fl 03/19/2020 6:54 EDT [facility] Blood VENOUS BLOOD / Unknown Venipuncture / Unknown 03/19/2020 6:39 EDT 03/19/2020 6:44 EDT lCayton Reynoso MD HEMATOLOGY & PF4 ORDERABLES Final Result Performing Organization Address City/[facility]/ZIP Co de Phone Number [facility] [address] [place] [address] * (ABNORMAL) ELECTROLYTES (03/19/2020 6:39 EDT) Sodium 138 136 - 145 mEq/L 03/19/2020 7:21 EDT [facility] Potassium 4.1 3.5 - 5.0 mEq/L 03/19/2020 7:21 EDT [facility] Chloride 106 96 - 110 mEq/L 03/19/2020 7:21 EDT [facility] CO2 Total 20(L) 22 - 32 mEq/L 03/19/2020 7:21 EDT [facility] Blood VENOUS BLOOD / Unknown Venipuncture / Unknown 03/19/2020 6:39 EDT 03/19/2020 6:51 EDT Clayton Reynoso MD CHEMISTRY & BLOOD GAS ORDER RENEE Final Result Performing Organization Address City/[facility]/ZIP Co de Phone Number [facility] [address] [place] [address] * (ABNORMAL) CREATININE (03/19/2020 6:39 EDT) Creatinine 0.63(L) 0.66 - 1.25 mg/dL 03/19/2020 7:21 EDT [facility] eGFR 94 >60 mL/min/1.7 3m2 03/19/2020 7:21 EDT [facility] Comment:eGFR calculated ernesto cee CKD-EPI equation for non- Americans. Multiply eGFR by 1.16 for patients. Blood VENOUS BLOOD / Unknown Venipuncture / Unknown 03/19/2020 6:39 EDT 03/19/2020 6:51 EDT Clayton Reynoso MD CHEMISTRY & BLOOD GAS ORDER RENEE Final Result Performing Organization Address City/[facility]/ZIP Co de Phone Number [facility] [address] [place] [address] * BUN (03/19/2020 6:39 EDT) BUN 14 10 - 26 mg/dL 03/19/2020 7:21 EDT [facility] Blood VENOUS BLOOD / Unknown Venipuncture / Unknown 03/19/2020 6:39 EDT 03/19/2020 6:51 EDT Clayton Reynoso MD CHEMISTRY & BLOOD GAS ORDER RENEE Final Result Performing Organization Address City/[facility]/ZIP Co de Phone Number [facility] [address] [place] [address] * (ABNORMAL) COMPLETE BLOOD COUNT (03/18/2020 18:25 EDT) WBC 14.98(H) 4.00 - 10.40 K/cmm 03/18/2020 18:39 EDT [facility] RBC 4.98 4.36 - 5.78 M/cmm 03/18/2020 18:39 EDT [facility] Hemoglobin 16.4 13.8 - 17.3 gm/dL 03/18/2020 18:39 EDT [facility] HCT 47.5 39.5 - 50.2 % 03/18/2020 18:39 EDT [facility] MCV 95 81 - 95 fl 03/18/2020 18:39 EDT [facility] MCH 32.9 27.6 - 33.0 pg 03/18/2020 18:39 EDT [facility] MCHC 34.5 32.8 - 36.4 gm/dL 03/18/2020 18:39 EDT [facility] RDW-CV 12.5 <14.2 % 03/18/2020 18:39 EDT [facility] RDW-SD 43.9 <46.0 fl 03/18/2020 18:39 EDT [facility] PLT 203 141 - 377 K/cmm 03/18/2020 18:39 T [facility] MPV 10.3 9.5 - 12.7 fl 03/18/2020 18:39 EDT [facility] Blood VENOUS BLOOD / Unknown Venipuncture / Unknown 03/18/2020 18:25 EDT 03/18/2020 18:31 EDT us Clayton Reynoso MD HEMATOLOGY & PF4 ORDERABLES Final Result Performing Organization Address City/State/[facility] Co de Phone Number [facility] [address] [place] [address] * (ABNORMAL) COMPLETE BLOOD COUNT (03/18/2020 16:02 EDT) WBC 16.21(H) 4.00 - 10.40 K/cmm 03/18/2020 16:52 EDT [facility] RBC 5.27 4.36 - 5.78 M/cmm 03/18/2020 16:52 EDT [facility] Hemoglobin 17.2 13.8 - 17.3 gm/dL 03/18/2020 16:52 EDT [facility] HCT 50.9(H) 39.5 - 50.2 % 03/18/2020 16:52 EDT [facility] MCV 97(H) 81 - 95 fl 03/18/2020 16:52 EDT [facility] MCH 32.6 27.6 - 33.0 pg 03/18/2020 16:52 EDT [facility] MCHC 33.8 32.8 - 36.4 gm/dL 03/18/2020 16:52 EDT [facility] RDW-CV 12.5 <14.2 % 03/18/2020 16:52 EDT [facility] RDW-SD 45.0 <46.0 fl 03/18/2020 16:52 EDT [facility] PLT 226 141 - 377 K/cmm 03/18/2020 16:52 EDT [facility] MPV 10.4 9.5 - 12.7 fl 03/18/2020 16:52 EDT [facility] Blood VENOUS BLOOD / Unknown Venipuncture / Unknown 03/18/2020 16:02 EDT 03/18/2020 16:32 EDT us Es Peace METAL TILE SETTER HEMATOLOGY & PF4 ORDERABLES F inal Result [facility] [address] [place] [address] * (ABNORMAL) CALCIUM (03/18/2020 6:55 EDT) Calcium 8.4(L) 8.5 - 10.5 mg/dL 03/18/2020 18:27 EDT [facility] Calculated Calcium 8.9 8.5 - 10.5 mg/dL 03/18/2020 18:27 EDT [facility] Blood VENOUS BLOOD / Unknown Venipuncture / Unknown 03/18/2020 6:55 EDT 03/18/2020 7:04 EDT us Clayton Reynoso MD CHEMISTRY & BLOOD GAS ORDER RENEE Final Result Performing Organization Address City/[facility]/ZIP Co de Phone Number [facility] [address] [place] [address] * MAGNESIUM (03/18/2020 6:55 EDT) Magnesium 2.1 1.7 - 2.8 mg/dL 03/18/2020 18:27 [facility] Blood VENOUS BLOOD / Unknown Venipuncture / Unknown 03/18/2020 6:55 EDT 03/18/2020 7:04 EDT us Clayton Reynoso MD CHEMISTRY & BLOOD GAS ORDER RENEE Final Result [facility] [address] [place] [address] * (ABNORMAL) COMPLETE BLOOD COUNT AND DIFFERENTIAL (03/18/2020 6:55 EDT) WBC 11.94(H) 4.00 - 10.40 K/cmm 03/18/2020 7:14 [facility] RBC 4.65 4.36 - 5.78 M/cmm 03/18/2020 7:14 [facility] Hemoglobin 15.3 13.8 - 17.3 gm/dL 03/18/2020 7:14 [facility] HCT 44.3 39.5 - 50.2 % 03/18/2020 7:14 [facility] MCV 95 81 - 95 fl 03/18/2020 7:14 [facility] MCH 32.9 27.6 - 33.0 pg 03/18/2020 7:14 [facility] MCHC 34.5 32.8 - 36.4 gm/dL 03/18/2020 7:14 [facility] RDW-CV 12.5 <14.2 % 03/18/2020 7:14 [facility] RDW-SD 43.6 <46.0 fl 03/18/2020 7:14 [facility] PLT 184 141 - 377 K/cmm 03/18/2020 7:14 [facility] MPV 10.0 9.5 - 12.7 fl 03/18/2020 7:14 [facility] % Neutrophils 76.9 % 03/18/2020 7:14 [facility] % Lymphocytes 14.4 % 03/18/2020 7:14 [facility] % Monocytes 8.1 % 03/18/2020 7:14 [facility] % Eosinophils 0.1 % 03/18/2020 7:14 [facility] % Basophils 0.2 % 03/18/2020 7:14 [facility] % Immature Grans 0.3 % 03/18/20 20 7:14 [facility] Absolute Neutrophils 9.18(H) 2.20 - 8.85 K/cmm 03/18/2020 7:14 [facility] Absolute Lymphocytes 1.72 1.09 - 3.30 K/cmm 03/18/2020 7:14 [facility] Absolute Monocytes 0.97(H) 0.10 - 0.80 K/cmm 03/18/2020 7:14 [facility] Absolute Eosinophils 0.01(L) 0.03 - 0.61 K/cmm 03/18/2020 7:14 [facility] ABS Basophils 0.02 0.01 - 0.11 K/cmm 03/18/2020 7:14 [facility] Absolute Immature Grans 0.04 0.00 - 0.06 K/cmm 03/18/2020 7:14 [facility] Type of Differential: Auto 03/18/2020 7:14 [facility] Blood VENOUS BLOOD / Unknown Venipuncture / Unknown 03/18/2020 6:55 EDT 03/18/2020 7:06 EDT us Es Peace METAL TILE SETTER PACKAGES & DNA PROBE ORDERABL ES Final Result [facility] [address] [place] [address] * CREATININE (03/18/2020 6:55 EDT) Creatinine 0.79 0.66 - 1.25 mg/dL 03/18/2020 7:35 [facility] eGFR 86 >60 mL/min/1.7 3m2 03/18/2020 7:35 [facility] Comment:eGFR calculated ernesto cee CKD-EPI equation for non- Americans. Multiply eGFR by 1.16 for patients. Blood VENOUS BLOOD / Unknown Venipuncture / Unknown 03/18/2020 6:55 EDT 03/18/2020 7:04 EDT Es Purcellia METAL TILE SETTER CHEMISTRY & BLOOD GAS ORDERAB LES Final Result Performing Organization Address City/[facility]/ZIP Co de Phone Number [facility] [address] [place] [address] * BUN (03/18/2020 6:55 EDT) BUN 12 10 - 26 mg/dL 03/18/2020 7:35 EDT [facility] Blood VENOUS BLOOD / Unknown Venipuncture / Unknown 03/18/2020 6:55 EDT 03/18/2020 7:04 EDT Es Purcellia METAL TILE SETTER CHEMISTRY & BLOOD GAS ORDERAB LES Final Result Performing Organization Address [facility] Co de Phone Number [facility] [address] [place] [address] * (ABNORMAL) ELECTROLYTES (03/18/2020 6:55 EDT) Sodium 135(L) 136 - 145 mEq/L 03/18/2020 7:35 EDT [facility] Potassium 4.2 3.5 - 5.0 mEq/L 03/18/2020 7:35 EDT [facility] Chloride 104 96 - 110 mEq/L 03/18/2020 7:35 EDT [facility] CO2 Total 23 22 - 32 mEq/L 03/18/2020 7:35 EDT [facility] Blood VENOUS BLOOD / Unknown Venipuncture / Unknown 03/18/2020 6:55 EDT 03/18/2020 7:04 EDT Es Purcellia METAL TILE SETTER CHEMISTRY & BLOOD GAS ORDERAB LES Final Result Performing Organization Address City/[facility]/ZIP Co de Phone Number [facility] [address] [place] [address] * (ABNORMAL) SCREENING GLUCOSE (03/18/2020 6:55 EDT) Glucose, Screening 107(H) 70 - 100 mg/dL 03/18/2020 7:35 EDT [facility] Blood VENOUS BLOOD / Unknown Venipuncture / Unknown 03/18/2020 6:55 EDT 03/18/2020 7:04 EDT us Es Peace NP CHEMISTRY & BLOOD GAS ORDERAB LES Final Result [facility] [address] [place] [address] * BACTERIAL CULTURE, BLOOD (03/17/2020 18:20 EDT) Organism ID No Growth at 5 days 03/22/2020 19:15 EDT [facility] Blood VENOUS BLOOD / Unknown Blood Culture / Unknown 03/17/2020 18:20 EDT 03/17/2020 19:10 EDT us Jaguar Liang MD MICROBIOLOGY - GENERAL ORDERAB LES Final Result [facility] [address] [place] [address] * BACTERIAL CULTURE, BLOOD (03/17/2020 18:13 EDT) Organism ID No Growth at 5 days 03/22/2020 19:15 EDT [facility] Blood VENOUS BLOOD / Unknown Blood Culture / Unknown 03/17/2020 18:13 EDT 03/17/2020 19:10 EDT us Jaguar Liang MD MICROBIOLOGY - GENERAL ORDERAB LES Final Result [facility] [address] [place] [address] * BACTERIAL CULTURE, URINE (03/17/2020 17:59 EDT) Organism ID No Growth 03/19/2020 8:17 EDT [facility] Urine URINE SPECIMEN OBTAINED BY SINGLE CATHETERIZATION OF URINARY BLADDER / Unknown Urine Collect / Unknown 03/17/2020 17:59 EDT 03/17/2020 18:35 EDT us Jaguar Liang MD MICROBIOLOGY - GENERAL ORDERAB LES Final Result [facility] [address] [place] [address] * (ABNORMAL) URINE CHEMICAL (DIP) & SEDIMENT (MICRO) WITH REFLEX TO CULTURE (03/17/2020 17:59 EDT) Color UA Yellow Colorless, Yellow 03/17/2020 18:35 [facility] Clarity UA Clear Clear 03/17/2020 18:35 [facility] Glucose UA Negative Negative 03/17/2020 18:35 [facility] Bilirubin UA Negative Negative 03/17/2020 18:35 [facility] Ketones UA 1+(A) Negative 03/17/2020 18:35 [facility] Specific Caroleen, Urine 1.028 1.001 - 1.035 03/17/2020 18:35 [facility] Blood UA 3+(A) Negative 03/17/2020 18:35 [facility] Urobilinogen UA Normal Normal mg/dL 020 18:35 [facility] Nitrite UA Negative Negative 03/17/2020 18:35 [facility] Leukocyte Esterase UA 2+(A) Negative 03/17/2020 18:35 [facility] Protein UA 2+(A) Negative 03/17/2020 18:35 [facility] pH, UA 6.0 4.6 - 8.0 03/17/2020 18:35 [facility] Urine RBC Count, Auto >50(A) 0 - 2 Cells/HPF 03/17/2020 18:35 [facility] Urine WBC Count, Auto >50(A) 0 - 3 Cells/HPF 03/17/2020 18:35 [facility] Urine Squamous Count, Auto None Seen None Seen Cells/HPF 03/17/2020 18:35 EDT [facility] Urine Hyaline Cast Count, Auto <=10 <=10 Casts/LPF 03/17/2020 18:35 T [facility] Urine Bacteria Count, Auto None Seen None Seen Bacteria/HPF 03/17/2020 18:35 T [facility] Urine URINE SPECIMEN OBTAINED BY SINGLE CATHETERIZATION OF URINARY BLADDER / Unknown Urine Collect / Unknown 03/17/2020 17:59 EDT 03/17/2020 18:05 EDT Narrative [facility] - 03/17/2020 18:35 EDT A Urine Culture test has been reflexively ordered based on result criteria from the Urine Sediment Analysis. Urine Sediment Analysis results are unreliable on urines that are unrefrigerated for >2 hrs or refrigerated >8 hrs. us Jaguar Liang MD URINALYSIS ORDERABLES Final Re sult [facility] [address] [place] [address] * SURGICAL PATHOLOGY (03/17/2020 10:30 EDT) Final Diagnosis A. 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 - Negative for dysplasia and malignancy. - Surgical resection margins viable. 03/22/2020 15:14 [facility] at 1514 Attestation There was significant resident/fellow involvement in the diagnostic evaluation of this case. By the signature below, the attending physician certifies that they have personally conducted a gross and/or microscopic examination of the described specimens and rendered or confirmed the above diagnosis. 03/22/2020 15:14 [facility] at 1514 Clinical History Colovesical fistula; diverticulitis 03/22/2020 15:14 [facility] Gross Description A. Received in [...] surrounding mesentery reveals lobulated, yellow cut surfaces. Sack Repairer sections are submitted as follows: BLOCK HENSON A1- stapled margin, en face A2-A3- open margin, bisected, en face A4-A7- sections of diverticula A8- section of separate donut Kim Joel 03/18/2020 8:05 03/22/2020 15:14 EDT [facility] Resident/Vish w: Chance Crouch MD 03/22/2020 15:14 EDT [facility] Scanned Images 03/22/2020 15:14 EDT [facility] Tissue ENTIRE SIGMOID COLON / Unknown 03/17/2020 10:30 EDT 03/17/2020 16:33 EDT us Sara Mendez MD PATHOLOGY ORDERABLES Final Res ult [facility] [address] [place] [address] documented in this encounter Visit Diagnoses Diagnosis [...] Discontinued, Routine 2038 (Given - Provider: Thania Nowak, VIVEK) 2019 (Given - Provider: Natasha Baldwin RN) pantoprazole (PROTONIX) injection 40 mg (CANCELED) 40 mg, intravenous, DAILY, First dose on Sat03/18/20 at 1215, Until Discontinued, Routine 1008 (Given - Provider: Moises Dent RN) 0953 (Given - Provider: Rosalina Corona RN) pantoprazole (PROTONIX) tablet 40 mg 40 mg, oral, DAILY, First dose on Sat03/26/20 at 0900, Until Discontinued, Routine 0838 (Given - Provider: Rosalina Corona RN) potassium chloride in water infusion 10 mEq [...] Corona RN) 0838 (Given - Provider: Rosalina Corona RN) [...] 5-10 mg 2 03/17/2020 polyethylene glycol 3350 (CT RALAX) packet 17 g 1 03/17/2020 sodium [...] 02/26 documented in this encounter Care Teams Fire Extinguisher Technician Relationship Specialty Start Date End Date Kylie Oglesby [address] [place] [address] PCP - General Internal Medicine - Primary Care 12/15/19 documented as of this encounter
--- OUTSIDE RECORDS SUMMARY | 2024-09-16 11:09 | XMS_ITS | Encounter Summary ---
Author Organization [facility] Address [address] [place] [address] Care Team Providers Care Dance Costume Designer Name Role Phone Kylie Oglesby Primary Care Provider [phone] Reason for Visit * Auth/Cert Specialty Diagnoses / Procedures Referred By Kavitha burgos Referred To Contact Diagnoses History of colon polyps History of colon polyps [Z86.010] Procedures COLONOSCOPY PROCEDURE-GI Referral ID Status Reason Start Date Expiration Date Visits Re quested Visits Authorized [id number] 1 1 Encounter Details Date Type Department Care Team (Late st Contact Info) Description 02/18/2020 11:10 EDT - 02/18/2020 11:50 EDT Surgery [facility] Endoscopy - [address] [id number] Sara Mendez MD 111 [facility], [facility] [address] [place] [address] COLONOSCOPY PROCEDURE-GI Surgery Details Date/Time Status Location OR Service Patient Class Case Cl ass Case Type Trauma Case? 02/18/2020 1110 Posted [facility] GI/[facility]O ENDO [address] [place] [address] Outpatient Procedure H - Elective Panel 1 [...] this encounter Medications at Time of Discharge tamsulosin (FLOMAX) 0.4 mg capsule Take by mouth daily. 11/17/2019 cephALEXin (KEFLEX) 500 mg capsule TK 1 C PO TID 11/20/2019 0 nitrofurantoin (MACRODANTIN) 50 mg capsule Take 1 Cap by mouth at bedtime. Start the day after completing your full course of treatment 30 Cap 1 12/01/2019 0 nitrofurantoin, macrocrystal-mon ohydrate, (MACROBID) 100 mg capsule Take 1 Cap by mouth 2 times daily. 14 Cap 12/01/2019 0 documented as of this encounter Discharge [...] & Physical Date: 02/18/2020 Time: 11:29 Location: [facility] GI/ENDO Planned Procedure: Procedure(s): COLONOSCOPY PROCEDURE-GI Chief Complaint/Indications for Procedure: diagnostic, pneumaturia; personal history of polyps History Previous Complication with Sedation and/or Anesthesia? Allergies: Allergies Allergen Reactions ??? Steroid [Corticosteroids (Glucocorticoids)] Other (See Comments) Paranduncana, edison Current Medications: Current Facility-Administered Medications: dextrose [...] Last Solid: 02/16/20 Time of Last Solid: 235 Patient Appropriate Candidate for Planned Sedation?: Yes [...] ??Total sedation time was 26 ?? minutes. [place] Bowel Prep Right Colon: 3 ? Transverse [...] Mendez MD Sara Mendez MD GI PROCEDURE ORDERABLES Final Result documented in this encounter Visit Diagnoses Diagnosis [...] 02/18/2020 documented in this encounter Care Teams Dance Costume Designer Relationship Specialty Start Date End Date Kylie Oglesby 4 [facility] [address] [address] PCP - General Internal Medicine - Primary Care 12/15/19 documented as of this encounter
--- OUTSIDE RECORDS SUMMARY | 2024-09-16 11:09 | XMS_ITS | Encounter Summary ---
Author Organization [facility] Address [address] [place] [address] Care Team Providers Care Factory Lay Out Engineer Name Role Phone Kylie Oglesby Primary Care Provider [phone] Encounter Details Date Type Department Care Team [...] on filedocumented in this encounter Care Teams Factory Lay Out Engineer Relationship Specialty Start Date End Date Kylie Oglesby [address] [place] [address] PCP - General Internal Medicine - Primary Care 12/15/19 documented as of this encounter
--- OUTSIDE RECORDS SUMMARY | 2024-09-16 11:09 | XMS_ITS | Encounter Summary ---
Author Organization [facility] Address [address] [place] [address] Care Team Providers Care Chairman & Chief Executive Officer Name Role Phone Kylie Oglesby Primary Care Provider [phone] Reason for Visit * Reason Onset Date Comments COVID-19 03/14/2020 PATIENT IS MAEGAN Ramon PREPROCEDURAL TEST DONE AT [facility] 03/14/20 PATIENT WAS GIVEN [phone] REG LINE FOR GABRIELLA AND IS CALLING TO GET REGISTERED FOR TESTING TODAY Encounter Details Date Type Department Care Team (Late st Contact Info) Description 03/14/2020 Telephone [facility] Testing [address] [place] [address] Sara Mendez MD 111 [facility] [address] [place] [address] COVID-19 (PATIENT IS HAVING PREPROCEDURAL TEST DONE AT [facility] 03/14/20 PATIENT WAS GIVEN [phone] REG LINE FOR GABRIELLA AND IS CALLING [...] PATIENT IS HAVING PREPROCEDURAL TEST DONE AT [facility] 03/14/20 PATIENT WAS GIVEN [phone] REG LINE FOR [facility] AND IS CALLING TO GET REGISTERED FOR TESTING TODAY documented in this encounter Plan of Treatment Not on file documented as of this encounter Visit Diagnoses Not on filedocumented in this encounter Care Teams Chairman & Chief Executive Officer Relationship Specialty Start Date End Date Kylie Oglesby [address] [place] [address] PCP - General Internal Medicine - Primary Care 12/15/19 documented as of this encounter
--- OUTSIDE RECORDS SUMMARY | 2024-09-16 11:09 | XMS_ITS | Encounter Summary ---
Author Organization [facility] Address [address] [place] [address] Care Team Providers Care Pensionholder Information Clerk Name Role Phone Kylie Oglesby Primary Care Provider [phone] Reason for Visit * Auth/Cert Specialty Diagnoses / Procedures Referred By Kavitha burgos Referred To Contact Diagnoses History of colon polyps History of colon polyps [Z86.010] Procedures COLONOSCOPY PROCEDURE-GI Referral ID Status Reason Start Date Expiration Date Visits Re quested Visits Authorized [id number] 1 1 Encounter Details Date Type Department Care Team (Late st Contact Info) Description 02/18/2020 9:45 EDT - 02/18/2020 12:53 EDT Hospital Encounter [facility] Endoscopy - [facility] [address] [place], [place] [address] Sara Mendez MD 111 [facility], Level [address] [place] [address] Discharge Disposition: Home or Self [...] & Physical Date: 02/18/2020 Time: 11:29 Location: [facility]/END[facility] Planned Procedure: Procedure(s): COLONOSCOPY PROCEDURE-GI Chief [...] ??Total sedation time was 26 ?? minutes. [place] Bowel Prep Right Colon: 3 ? Transverse [...] 02/18/2020 documented in this encounter Care Teams Pensionholder Information Clerk Relationship Specialty Start Date End Date Kylie Oglesby [address] [place] [address] PCP - General Internal Medicine - Primary Care 12/15/19 documented as of this encounter
--- OUTSIDE RECORDS SUMMARY | 2024-09-16 11:09 | XMS_ITS | Encounter Summary ---
Author Organization [facility] Address [address] [place] [address] Care Team Providers Care Jr. Systems Administrator Name Role Phone Kylie Oglesby Primary Care Provider [phone] Reason for Visit * Reason Onset Date Comments Labs Only 03/14/2020 Encounter Details Date Type Department Care Team (Late st Contact Info) Description 03/14/2020 Telephone [facility] General Surgery - [facility] [address] [place], [place] [id number] Sara Mendez MD 111 [facility], Level [address] [place] [address] Labs Only Social History Tobacco [...] he had the Covid-19 test today at today at 1 pm. documented in this encounter Plan of Treatment Not on file documented as of this encounter Visit Diagnoses Not on filedocumented in this encounter Care Teams Jr. Systems Administrator Relationship Specialty Start Date End Date Kylie Oglesby [address] [place] [address] PCP - General Internal Medicine - Primary Care 12/15/19 documented as of this encounter
--- OUTSIDE RECORDS SUMMARY | 2024-09-16 11:09 | XMS_ITS | Encounter Summary ---
Author Organization [facility] Address [address] [place] [address] Care Team Providers Care Rim Technician Name Role Phone Unknown, Provider Primary Care Provider Kylie Pérez Primary Care Provider [phone] Encounter Details Date Type Department Care Team (Late st Contact Info) Description 12/14/2019 Results Only Imaging [facility] Radiology Results [address] [place], [place] [id number] Cathryn Monzon, GATE PERSON [address] [place] [address] Social History Tobacco Use Types [...] CC: ? Transcribed Date/Time: 12/14/2019 (1838) ? Hydraulics Engineer: [employer] ? Printed Date/Time: 12/14/2019 (1838) ? PAGE [...] Avalos MD CC: Transcribed Date/Time: 12/14/2019 (1838) Hydraulics Engineer: Printed Date/Time: 12/14/2019 (1838) PAGE 2 Signed Report us Cathryn Monzon GATE PERSON IMG CT ORDERABLES Final Res ult documented in this encounter Visit Diagnoses Not on filedocumented in this encounter Care Teams Rim Technician Relationship Specialty Start Date End Date Unknown, Provider, PCP - General 10/15/16 12/14/19 Kylie Oglesby [address] [place] [address] PCP - General Internal Medicine - Primary Care 12/15/19 documented as of this encounter
--- OUTSIDE RECORDS SUMMARY | 2024-09-16 11:09 | XMS_ITS | Encounter Summary ---
Author Organization [facility] Address [address] [place] [address] Care Team Providers Care Roving Weight Gauger Name Role Phone Unknown, Provider MD Primary Care Provider Unava ilable Reason for Visit * (Routine) - Receiving Office to Obtain Authorization Specialty Diagnoses / Procedures Referred By Contdennis t Referred To Contact Procedures CT OUTSIDE IMAGES BODY Unknown, Provider, MD Referral ID Status Reason Start Date Expiration Date Visits Requested Visits Authorized [id number] Receiving Office to Obtain Authorization 12/16/2019 1 1 Encounter Details Date Type Department Care Team (Late st Contact Info) Description 05/07/2019 Hospital Encounter [facility] Radiology - Main [place] [address] [place] [address] Social History Tobacco Use Types Packs/Day Years [...] 8:11 EST This is a non-reportable exam. us Provider Unknown MD CABA OTHER IMAGING ORDERABLES Final Result SAMEER documented in this encounter Visit Diagnoses Not on filedocumented in this encounter Care Teams Roving Weight Gauger Relationship Specialty Start Date End Date Unknown, Provider, PCP - General 10/15/16 12/14/19 documented as of this encounter
--- OUTSIDE RECORDS SUMMARY | 2024-09-16 11:09 | XMS_ITS | Encounter Summary ---
Author Organization [facility] Address [address] [place] [address] Care Team Providers Care Energy Administrator Name Role Phone Kylie Oglesby Primary Care Provider [phone] Encounter Details Date Type Department Care Team (Late st Contact Info) Description 03/09/2020 Orders Only [facility] General Surgery - [facility] [address] [place], [place] [id number] Sara Mendez MD 111 [facility], Level [address] [place] [address] Encounter for laboratory testing for [...] Primary documented in this encounter Care Teams Energy Administrator Relationship Specialty Start Date End Date Kylie Oglesby [address] [place] [address] PCP - General Internal Medicine - Primary Care 12/15/19 documented as of this encounter
--- OUTSIDE RECORDS SUMMARY | 2024-09-16 11:09 | XMS_ITS | Encounter Summary ---
Author Organization [facility] Address [address] [place] [address] Care Team Providers Care Oil Tanker Captain Name Role Phone Kylie Oglesby Primary Care Provider [phone] Reason for Visit * Reason Comments Post-OP Follow Up Encounter Details Date Type Department Care Team (Late st Contact Info) Description 03/01/2020 14:00 EDT Office Visit [facility] General Surgery - [facility] [address] [place], [place] [address] Sara Mendez MD 111 [facility], Level [address] [place] [address] Diverticulitis of large intestine with [...] been seen by the urology department at [facility] with Cathryn Monzon. She did a [...] 25 years ago but has about a 44-vgel-lsxp history. drinks wine daily. 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 He goes to the gym 3 [...] I will send the prescriptions to the [facility] in [place]. I was supervised by Dr Mendez who was present and immediately available in the office suite. SERGEI BYERS RN 03/01/2020 15:31 documented in this encounter Plan of Treatment Not on file documented as of this encounter Results * (ABNORMAL) COMPLETE BLOOD COUNT (03/01/2020 15:57 EDT) WBC 10.53(H) 4.00 - 10.40 K/cmm 03/01/2020 16:42 EDT [facility] RBC 5.57 4.36 - 5.78 M/cmm 03/01/2020 16:42 [facility] Hemoglobin 18.2(H) 13.8 - 17.3 gm/dL 03/01/2020 16:42 [facility] HCT 53.6(H) 39.5 - 50.2 % 03/01/2020 16:42 [facility] MCV 96(H) 81 - 95 fl 03/01/2020 16:42 [facility] MCH 32.7 27.6 - 33.0 pg 03/01/2020 16:42 [facility] MCHC 34.0 32.8 - 36.4 gm/dL 03/01/2020 16:42 EDT [facility] RDW-CV 12.5 <14.2 % 03/01/2020 16:42 EDT [facility] RDW-SD 44.4 <46.0 fl 03/01/2020 16:42 EDT [facility] PLT 255 141 - 377 K/cmm 03/01/2020 16:42 EDT [facility] MPV 10.4 9.5 - 12.7 fl 03/01/2020 16:42 EDT [facility] Blood VENOUS BLOOD / Unknown Venipuncture / Unknown 03/01/2020 15:57 EDT 03/01/2020 16:26 EDT us Sara Mendez MD HEMATOLOGY & PF4 ORDERABLES Fi nal Result [facility] [address] [place] [address] documented in this encounter Visit Diagnoses Diagnosis Diverticulitis of large intestine with abscess, unspecified bleeding status- Primary documented in this encounter Orders Lab Orders Without Results Count Last Ordered D ate First Ordered Date BASIC METABOLIC PANEL (BMP) 1 03/01/2020 documented in this encounter Care Teams Oil Tanker Captain Relationship Specialty Start Date End Date Kylie Oglesby [address] [place] [address] PCP - General Internal Medicine - Primary Care 12/15/19 documented as of this encounter
--- OUTSIDE RECORDS SUMMARY | 2024-09-16 11:09 | XMS_ITS | Encounter Summary ---
Author Organization [facility] Address [address] [place] [address] Care Team Providers Care It Risk And Assurance Manager Name Role Phone Unknown, Provider Primary Care Provider Kylie Pérez Primary Care Provider [phone] Encounter Details Date Type Department Care Team (Late st Contact Info) Description 12/01/2019 Historical Results Only [facility] Lab - Main [place] [address] [place], [place] [address] Cathryn Monzon NP [address] [place] [address] Social History Tobacco Use Types [...] CULTURE, URINE (12/01/2019 16:48 EST) ESCHERIACHIA COLI [facility] ESCHERICHIA COLI 12/03/2019 7:32 EST [facility] CitrateConcentration 10,000-100,00 0 CFU/ML 12/03/2019 7:32 EST [facility] 12/01/2019 16:4 8 [...] [facility] <=1: Susceptible Comment:RECURRENT UTI Cathryn Monzon CAR SHIFTER MICROBIOLOGY - GENERAL KAT FRAIRE Edited Result - Final [facility] documented in this encounter Visit Diagnoses Not on filedocumented in this encounter Care Teams It Risk And Assurance Manager Relationship Specialty Start Date End Date Unknown, Provider, PCP - General 10/15/16 12/14/19 Kylie Oglesby [address] [place] [address] PCP - General Internal Medicine - Primary Care 12/15/19 documented as of this encounter
--- OUTSIDE RECORDS SUMMARY | 2024-09-16 11:09 | XMS_ITS | Encounter Summary ---
Author Organization [facility] Address [address] [place] [address] Care Team Providers Care Chief Accounting Officer Name Role Phone Kylie Oglesby Primary Care Provider [phone] Encounter Details Date Type Department Care Team [...] on filedocumented in this encounter Care Teams Chief Accounting Officer Relationship Specialty Start Date End Date Kylie Oglesby [address] [place] [address] PCP - General Internal Medicine - Primary Care 12/15/19 documented as of this encounter
--- OUTSIDE RECORDS SUMMARY | 2024-09-16 11:09 | XMS_ITS | Encounter Summary ---
Author Organization [facility] Address [address] [place] [address] Care Team Providers Care Brazing Furnace Feeder Name Role Phone Unknown, Provider MD Primary Care Provider Unava ilable Reason for Visit * (Routine) - Receiving Office to Obtain Authorization Specialty Diagnoses / Procedures Referred By Contac t Referred To Contact Procedures CT OUTSIDE IMAGES BODY Unknown, Provider, MD Referral ID Status Reason Start Date Expiration Date Visits Requested Visits Authorized [id number] Receiving Office to Obtain Authorization 12/31/2019 1 1 Encounter Details Date Type Department Care Team (Latest Contact Info) Description 12/14/2019 - 12/14/2019 23:59 EST Hospital Encounter [facility] Radiology - Main [place] [address] [place] [address] Discharge Disposition: Home or Self Care Social [...] 14:40 EST This is a non-reportable exam. us Physician Fa_General IMG OTHER IMAGING ORDERA BLES Final Result JUAN CBRAYAN documented in this encounter Visit Diagnoses Not on filedocumented in this encounter Care Teams Brazing Furnace Feeder Relationship Specialty Start Date End Date Unknown, Provider, PCP - General 10/15/16 12/14/19 documented as of this encounter
--- OUTSIDE RECORDS SUMMARY | 2024-09-16 11:09 | XMS_ITS | Encounter Summary ---
Author Organization [facility] Address [address] [place] [address] Care Team Providers Care Corn Cooker Name Role Phone Kylie Oglesby Primary Care Provider [phone] Encounter Details Date Type Department Care Team [...] on filedocumented in this encounter Care Teams Corn Cooker Relationship Specialty Start Date End Date Kylie Oglesby [address] [place] [address] PCP - General Internal Medicine - Primary Care 12/15/19 documented as of this encounter
[2024-09-16 15:03] LABS: Anion Gap 9.2 mmol/L (3-11); BUN 11 mg/dL (7-18); CO2 25.8 mmol/L (21.0-32.0); CREATININE 1.1 mg/dL (0.70-1.30); Calcium 9.1 mg/dL (8.5-10.1); Chloride 108 mmol/L (98-107); Estimated GFR 66.61 (mL/min/1.73m2); Glucose 95 mg/dL (74-106); Potassium 4.3 mmol/L (3.5-5.1); Sodium 143 mmol/L (136-145)
[2024-09-17 14:02] LABS: Albumin, Urine % 16.8 %; Albumin, Urine mg/dL 2 mg/dL; Globulins, Urine % 83.2 %; Globulins, Urine mg/dL 12 mg/dL; Immunotyping, Urine (See Note); Total Protein Urine 14 mg/dL (See Note)
== END 2024-09-16 11:04 | disposition home or self-care (01) ==
LOC: NCHCN 11:03
PROVIDERS: PCP Family Medicine; Visit Provider Internal Medicine
DX: G62.9 Polyneuropathy, unspecified (principal)
CPT/HCPCS: 80048; 84156; 84166; 86335; 84165

== ENCOUNTER 2024-11-27 20:30 | Outpatient (REF) | payer MEDICARE, BC, SELFPAY ==
[2024-11-27 15:24] LABS: HCT 55.7 % (40.0-50.0); HGB 18.2 g/dL (13.5-17.5); MCH 32.2 pg (27.0-33.0); MCHC 32.7 % (32.0-36.0); MCV 98 fL (80-95); MPV 10.7 fL (8.0-11.0); Platelet Count 262 10^3/uL (130-400); RBC 5.66 10^6/uL (4.36-5.78); RDW 12.3 % (11.8-14.1); RDW-SD 44.7 fL; WBC 7.91 10^3/uL (4.4-10.8)
[2024-11-27 15:48] LABS: ALT 28 U/L (16-63); AST 27 U/L (15-37); Alkaline Phosphatase 98 U/L (46-116); Anion Gap 6.6 mmol/L (3-11); BUN 10 mg/dL (7-18); Bilirubin, Total 0.68 mg/dL (0.2-1.0); CO2 29.4 mmol/L (21.0-32.0); Calcium 9.4 mg/dL (8.5-10.1); Chloride 107 mmol/L (98-107); Estimated GFR 74.68 (mL/min/1.73m2); Ferritin 365 ng/mL (26-388); Glucose 98 mg/dL (74-106); Potassium 4.6 mmol/L (3.5-5.1); Sodium 143 mmol/L (136-145)
[2024-11-27 15:58] LABS: Iron 159 ug/dL (65-175); Total Iron Binding Capacity 316 ug/dL (250-450); Transferrin Sat 50 % (20-55)
--- OUTSIDE RECORDS SUMMARY | 2024-11-27 20:33 | XMS_ITS | Referral Summary ---
Author Organization [facility] Address [address] [place] [address] Care Team Providers Care Clinical Lab Technologist Name Role Phone Kylie Oglesby Primary Care Provider [phone] Encounters Date Type Department Care Team Description 09/16/2024 Lab Requisition [facility] Pathology & Laboratory [address] [address] Outr Resulting Lab, Provider 09/03/2024 Lab Requisition [facility] Pathology & Laboratory [address] [address] Outr Resulting Lab, Provider 09/03/2024 Lab Requisition [facility] Pathology & Laboratory [address] [address] Outr Resulting Lab, Provider from Last 3 Months Allergies Active Allergy Reactions Criticality Noted Date Comments Corticosteroids (Glucocorticoids) Other (See Comments) 12/01/2019 Paranoia, twanzjazlyn Medications tamsulosin (FLOMAX) 0.4 mg capsule Take by mouth daily. 0 Active acetaminophen (TYLENOL) 325 mg tablet Take 1-2 Tabs by mouth every 4 hours as needed for Pain. 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 Overview (03/01/2020): Added automatically from request for surgery [id number] Diverticulitis 03/01/2020 Overview (03/01/2020): Added automatically from request for surgery [id number] Diverticulitis large intestine 02/18/2020 Immunizations Name Administration [...] on file Medical Devices Implanted Type Area Faith Healer Device Identifier Shelf Expiration Date Model / Serial / Lot Evacuator Suction 100cc Silicone Closed Wound With Anti-Reflux Valve - [id number] Implanted:Qty: 1 on 03/17/2020 by Sara Mendez MD at [facility] Drain N/A: Abdomen Jooce [id number] 07/25/2022 [id number] / [id number] Procedures Procedure Name Priority Date/Time Associated Diagnosis Comments URINE MONOCLONAL PROTEIN STUDY (UPEP WITH IMMUNOTYPING) PERFORMABLE Today 09/16/2024 11:10 EST PROTEIN, TOTAL, RANDOM, URINE Today 09/16/2024 11:10 EST URINE MONOCLONAL PROTEIN STUDY (UPEP WITH IMMUNOTYPING) Routine 09/16/2024 11:10 EST SPEP WITH IMMUNOTYPING PERFORMABLE Today 09/03/2024 7:44 EST PROTEIN, TOTAL Today 09/03/2024 7:44 EST SPEP WITH IMMUNOTYPING Routine 09/03/2024 7:44 EST SERUM FREE LIGHT CHAINS Routine 09/03/2024 7:44 EST from Last 3 Months Results * URINE MONOCLONAL PROTEIN STUDY (UPEP WITH IMMUNOTYPING) PERFORMABLE (09/16/2024 11:10 EST) Albumin, Urine % 16.8 N/A % 09/17/20 24 13:57 [facility] Albumin, Urine mg/dL 2 mg/dL 09/17/2024 13:57 [facility] Globulins, Urine % 83.2 N/A % 09/17/2024 13:57 [facility] Globulins, Urine mg/dL 12 mg/dL 09/17/2024 13:57 [facility] UPEP Comment See Comment 09/17/2024 13:57 [facility] Comment:Electrophoresis scre ening performed; Immunotyping to follow. ??See scanned/supplementary report. Immunotyping, Urine Current Interpretatio n: Negative for free monoclonal light chains. Reviewed by: Mala Toussaint PhD and Angel Hawk MD 09/17/2024 1319 09/17/2024 13:57 [facility] Total Protein, Urine 14 See Note mg/dL 09/17/2024 13:57 [facility] Comment: NOTE: Reference range has not been established for total protein concentration in random urine specimens. Urine URINE / Unknown 09/16/2024 1 1:10 EST 09/16/2024 21:45 EST us Provider Outr Resulting Lab URINALYSIS ORDERABLE S Final Result Performing Organization Address [facility] de Phone Number [facility] [address] [place] [address] * PROTEIN, TOTAL, RANDOM, URINE (09/16/2024 11:10 EST) Urine URINE / Unknown 09/16/2024 1 1:10 EST 09/16/2024 21:45 EST us Provider Outr Resulting Lab URINALYSIS ORDERABLE S Final Result Performing Organization Address [facility] Co de Phone Number [facility] [address] [place] [address] * (ABNORMAL) SPEP WITH IMMUNOTYPING PERFORMABLE (09/03/2024 7:44 EST) Albumin % 58.5 55.8 - 66.1 % 09/04/2024 15:04 [facility] Albumin g/dL 4.3 3.6 - 5.2 g/dL 09/04/2024 15:04 [facility] Alpha-1 % 3.5 2.9 - 4.9 % 09/04/2024 15:04 [facility] Alpha-1 g/dL 0.30 0.15 - 0.40 g/dL 09/04/2024 15:04 [facility] Alpha-2 % 10.4 7.1 - 11.8 % 09/04/2024 15:04 [facility] Alpha-2 g/dL 0.80 0.50 - 1.00 g/dL 09/04/2024 15:04 [facility] Beta % 13.7(H) 8.4 - 13.1 % 09/04/2024 15:04 [facility] Beta g/dL 1.00 0.60 - 1.20 g/dL 09/04/2024 15:04 [facility] Gamma % 13.9 11.1 - 18.8 % 09/04/2024 15:04 [facility] Gamma g/dL 1.00 0.60 - 1.60 g/dL 09/04/2024 15:04 [facility] SPEP Comment No apparent monoclonal protein seen on serum electrophoresis 09/04/2024 15:04 [facility] Comment:See scanned/suppleme ntary report. Immunotyping , Serum Current interpretation: Negative for monoclonal immunoglobulins. Reviewed by: Mala Toussaint PhD and Angel Hawk MD 09/04/2024 1433 09/04/2024 15:04 [facility] Total Protein 7.3 6.3 - 8.2 g/dL 09/04/2024 15:04 [facility] Blood VENOUS BLOOD / Unknown 09/03/2024 7:44 EST 09/03/2024 17:51 EST us Provider Outr Resulting Lab CHEMISTRY & BLOOD GA S ORDERABLES Final Result Performing Organization Address [facility] de Phone Number [facility] [address] [place] [address] * (ABNORMAL) SERUM FREE LIGHT CHAINS (09/03/2024 7:44 EST) [place] Free Lt Chain 3.23(H) 0.33 - 1.94 mg/dL 09/04/2024 9:44 EST [facility] Lambda Free Lt Chain 1.86 0.57 - 2.63 mg/dL 09/04/2024 9:44 EST [facility] [place]/Lambda Ratio 1.74(H) 0.26 - 1.65 09/04/2024 9:44 EST [facility] Blood VENOUS BLOOD / Unknown 09/03/2024 7:44 EST 09/03/2024 17:51 EST Provider Outr Resulting Lab CHEMISTRY & BLOOD GA S ORDERABLES Final Result Performing Organization Address [facility] Co de Phone Number [facility] [address] [place] [address] * PROTEIN, TOTAL (09/03/2024 7:44 EST) Blood VENOUS BLOOD / Unknown 09/03/2024 7:44 EST 09/03/2024 17:51 EST Provider Outr Resulting Lab CHEMISTRY & BLOOD GA S ORDERABLES Final Result Performing Organization Address [facility] Co de Phone Number [facility] [address] [place] [address] from Last 3 Months Insurance [facility] [place] [facility] [place] Member Subscriber Plan / Payer ( fective 2022-) Name:Jasbir Kate Member ID:[id number] Relation to Subscriber:Self Name:Jasbir Kate Subscriber ID:[id number] Payer ID:[id number] Group ID:Not on file Type:Medicare ACO [place] Address: [place] [phone] [facility] [place] [facility] [place] Advance Directives For more information, please contact: [phone] Documents on File Type Date Recorded Patient Head Of Insight Expl anation Advance Directive 03/17/2020 7:05 AD/POA Advance Directive 03/18/2020 9:21 [place] for Health Care-Signed 2015-06-03 Advance Directive 03/18/2020 9:21 Power Of Fiscal Agent-Signed 2015-06-03 * Full Code (Latest Code Status [...] the discussion? Not Discusse d Care Teams Clinical Lab Technologist Relationship Specialty Start Date End Date Kylie Oglesby [address] [place] [address] PCP - General Internal Medicine - Primary Care 12/15/19
--- OUTSIDE RECORDS SUMMARY | 2024-11-27 20:33 | XMS_ITS | Encounter Summary ---
Author Organization [facility] Address [address] [place] [address] Care Team Providers Care Pipe Fitter Soft Copper Name Role Phone Kylie Oglesby Primary Care Provider [phone] Reason for Visit * Reason Comments EMG (Electomyography) * Consult, Test and Treat (Routine) - Authorization Not Required Specialty Diagnoses / Procedures [facility] Referred To Contact Neurology Diagnoses Polyneuropathy, unspecified Procedures EMG/NERVE CONDUCTION STUDY Kylie Oglesby [address] [place] [address] Phone: tel: fax: [facility] [address] [place] [address] Phone: tel: fax: Referral ID Status Reason Start Date Expiration Date Visits Requested Visits Authorized [id number] Authorization Not Required 1 1 Encounter Details Date Type Department Care Team (Late st Contact Info) Description 08/25/2024 11:00 EDT Procedure visit [facility] [address] [place] [address] Ryan Shields MD [address] [facility], [facility] [address] [place] [address] Polyneuropathy, peripheral sensorimotor axonal (Primary [...] Ryan Shields MD - 08/25/2024 1100 EDT [facility] Clinical Neurophysiology Nerve Conduction and Electromyography [...] unspecified documented in this encounter Care Teams Pipe Fitter Soft Copper Relationship Specialty Start Date End Date Kylie Oglesby [address] [facility] [address] PCP - General Internal Medicine - Primary Care 12/15/19 documented as of this encounter
--- OUTSIDE RECORDS SUMMARY | 2024-11-27 20:33 | XMS_ITS | Clinical Summary ---
Author Organization [facility] Address [address] [place] [address] Care Team Providers Care Professor Of Food Biochemistry Name Role Phone Kylie Oglesby Primary Care Provider [phone] Allergies Active Allergy Reactions Criticality Noted Date [...] (03/01/2020): Added automatically from request for surgery [id number] Diverticulitis 03/01/2020 Overview (03/01/2020): Added automatically from request for surgery [id number] Diverticulitis large intestine 02/18/2020 Encounters Date Type Department Care Team Description 09/16/2024 Lab Requisition [facility] Pathology & Laboratory [address] [address] Outr Resulting Lab, Provider 09/03/2024 Lab Re[address] [facility] Pathology & Laboratory [address] [address] Outr Resulting Lab, Provider 09/03/[address] [facility] Pathology & Laboratory Medicine - [address] [address] Outr Resulting Lab, Provider from Last 3 Months Immunizations Name Administration Dates Next Due Influenza Vaccine High Dose (FLUZONE HIGH DOSE) PF 0.7 ml IM (65 yrs+) 09/10/2019 Surgical History Surgery Date Site/Laterality Comments APPENDECTOMY 10/28/1945 - 10/27/1946 TONSILLECTOMY ~1946 Medical History Medical History Date Comments Colon polyp Frequent UTI started having i ssues [id number], never been hospitalized for uti Fistula colovesicular fi stula - diverticulitis Diverticulitis History of general anesthesia Edentulous no upper teeth, has natural teeth on the bottom Peripheral neuropathy 03/03/2020 ongoing issue Activity, other involving cardiorespiratory exercise 03/03/2020 gym daily, [employer] 1 mile, has not been able to [...] season) 2024 Medical Devices Implanted Type Area Automated Logistics Specialist Device Identifier Shelf Expiration Date Model / Serial / Lot Evacuator Suction 100cc Silicone Closed Wound With Anti-Reflux Valve - [id number] Implanted:Qty: 1 on 03/17/2020 by Sara Mendez MD at [facility] Drain N/A: Abdomen [employer] [id number] 07/25/2022 [id number] Procedures Procedure Name Priority Date/Time Associated [...] Albumin, Urine % 16.8 N/A % 09/17/20 13:57 EST [facility] Albumin, Urine mg/dL 2 mg/dL 09/17/2024 13:57 EST [facility] Globulins, Urine % 83.2 N/A % 09/17/2024 13:57 [facility] Globulins, Urine mg/dL 12 mg/dL 09/17/2024 13:57 [facility] UPEP Comment See Comment 09/17/2024 13:57 [facility] Comment:Electrophoresis scre ening performed; Immunotyping to follow. ??See scanned/supplementary report. Immunotyping, Urine Current Interpretatio n: Negative for free monoclonal light chains. Reviewed by: Mala Toussaint PhD and Angel Hawk MD 09/17/2024 1319 09/17/2024 13:57 EST [facility] Total Protein, Urine 14 See Note mg/dL 09/17/2024 13:57 [facility] Comment: NOTE: Reference range has not been established for total protein concentration in random urine specimens. Urine URINE / Unknown 09/16/2024 1 1:10 EST 09/16/2024 21:45 EST us Provider Outr Resulting Lab URINALYSIS ORDERABLE S Final Result Performing Organization Address [facility] de Phone Number [facility] [address] [place] [address] * PROTEIN, TOTAL, RANDOM, URINE (09/16/2024 11:10 EST) Urine URINE / Unknown 09/16/2024 1 1:10 EST 09/16/2024 21:45 EST us Provider Outr Resulting Lab URINALYSIS ORDERABLE S Final Result Performing Organization Address [facility] Co de Phone Number [facility] [address] [place] [address] * (ABNORMAL) SPEP WITH IMMUNOTYPING PERFORMABLE (09/03/2024 7:44 EST) Albumin % 58.5 55.8 - 66.1 % 09/04/2024 15:04 EST [facility] Albumin g/dL 4.3 3.6 - 5.2 g/dL 09/04/2024 15:04 [facility] Alpha-1 % 3.5 2.9 - 4.9 % 09/04/2024 15:04 [facility] Alpha-1 g/dL 0.30 0.15 - 0.40 g/dL 09/04/2024 15:04 [facility] Alpha-2 % 10.4 7.1 - 11.8 % 09/04/2024 15:04 [facility] Alpha-2 g/dL 0.80 0.50 - 1.00 g/dL 09/04/2024 15:04 [facility] Beta % 13.7(H) 8.4 - 13.1 % 09/04/2024 15:04 [facility] Beta g/dL 1.00 0.60 - 1.20 g/dL 09/04/2024 15:04 [facility] Gamma % 13.9 11.1 - 18.8 % 09/04/2024 15:04 [facility] Gamma g/dL 1.00 0.60 - 1.60 g/dL 09/04/2024 15:04 [facility] SPEP Comment No apparent monoclonal protein seen on serum electrophoresis 09/04/2024 15:04 [facility] Comment:See scanned/suppleme ntary report. Immunotyping , Serum Current interpretation: Negative for monoclonal immunoglobulins. Reviewed by: Mala Toussaint PhD and Angel Hawk MD 09/04/2024 1433 09/04/2024 15:04 [facility] Total Protein 7.3 6.3 - 8.2 g/dL 09/04/2024 15:04 [facility] Blood VENOUS BLOOD / Unknown 09/03/2024 7:44 EST 09/03/2024 17:51 EST us Provider Outr Resulting Lab CHEMISTRY & BLOOD GA S ORDERABLES Final Result [facility] [address] [place] [address] * (ABNORMAL) SERUM FREE LIGHT CHAINS (09/03/2024 7:44 EST) [place] Free Lt Chain 3.23(H) 0.33 - 1.94 mg/dL 09/04/2024 9:44 EST [facility] Lambda Free Lt Chain 1.86 0.57 - 2.63 mg/dL 09/04/2024 9:44 EST [facility] [place]/Lambda Ratio 1.74(H) 0.26 - 1.65 09/04/2024 9:44 EST [facility] Blood VENOUS BLOOD / Unknown 09/03/2024 7:44 EST 09/03/2024 17:51 EST Provider Outr Resulting Lab CHEMISTRY & BLOOD GA S ORDERABLES Final Result Performing Organization Address [facility] de Phone Number [facility] [address] [place] [address] * PROTEIN, TOTAL (09/03/2024 7:44 EST) Blood VENOUS BLOOD / Unknown 09/03/2024 7:44 EST 09/03/2024 17:51 EST Provider Outr Resulting Lab CHEMISTRY & BLOOD GA S ORDERABLES Final Result Performing Organization Address [facility] Co de Phone Number [facility] [address] [place], [place] [address] from Last 3 Months Insurance [facility] [place] [facility] [place] [facility] [place] [place] [facility] [place] [place] Advance Directives For more information, please contact: [phone] Documents on File Type Date Recorded Patient Floor Covering Layer Expl anation Advance Directive 03/17/2020 7:05 AD/POA Advance Directive 03/18/2020 9:21 [place] Advan ce Directive for Health Care-Signed 2015-06-03 Advance Directive 03/18/2020 9:21 Power Of Marine Consultant-Signed 2015-06-03 * Full Code (Latest Code Status [...] the discussion? Not Discusse d Care Teams Professor Of Food Biochemistry Relationship Specialty Start Date End Date Kylie Oglesby [address] [place] [address] PCP - General Internal Medicine - Primary Care 12/15/19
--- OUTSIDE RECORDS SUMMARY | 2024-11-27 20:33 | XMS_ITS | Encounter Summary ---
Author Organization [facility] Address [address] [place] [address] Care Team Providers Care Chrome Tanning Drum Operator Name Role Phone Kylie Oglesby Primary Care Provider [phone] Reason for Visit * Reason Comments Post-OP Follow Up Encounter Details Date Type Department Care Team (Late st Contact Info) Description 04/12/2020 15:30 EDT Post-op Visit [facility] General Surgery - [facility] [address] [place], [place] [id number] Sara Mendez MD [address] [facility], [address] [place] [address] Colovesical fistula (Primary Dx) Social [...] [facility] with Cathryn Monzon. 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 ??He denies any chest pain with exertion, but does have some shortness of breath if he walks out 2 flights of stairs ?? Colonoscopy was about 2 to 3 years ago at [facility]. ??He states it was normal. [...] diverticulitis ??? Frequent UTI started having issues [id number], never been hospitalized for uti ??? History [...] fistula documented in this encounter Care Teams Chrome Tanning Drum Operator Relationship Specialty Start Date End Date Kylie Oglesby [address] [place] [address] [place] [address] PCP - General Internal Medicine - Primary Care 12/15/19 documented as of this encounter
--- OUTSIDE RECORDS SUMMARY | 2024-11-27 20:33 | XMS_ITS | Encounter Summary ---
Author Organization [facility] Address [address] [place] [address] Care Team Providers Care Information Coordinator Name Role Phone Kylie Oglesby Primary Care Provider [phone] Reason for Referral * (Routine/Next Available) - Receiving Office to Obtain Authorization Specialty Diagnoses / Procedures Referred By Contac t Referred To Contact Procedures CT OUTSIDE IMAGES HEAD Imaging, External Referral ID Status Reason Start Date Expiration Date Visits Requested Visits Authorized [id number] Receiving Office to Obtain Authorization 01/11/2024 1 1 Reason for Visit * (Routine/Next Available) - Receiving Office to Obtain Authorization Specialty Diagnoses / Procedures Referred By Contac t Referred To Contact Procedures CT OUTSIDE IMAGES HEAD Imaging, External Referral ID Status Reason Start Date Expiration Date Visits Requested Visits Authorized [id number] Receiving Office to Obtain Authorization 01/11/2024 1 1 Encounter Details Date Type Department Care Team (Latest Contact Info) Description 01/11/2024 11:49 EDT - 01/11/2024 23:59 EDT Hospital Encounter [facility] Secondary Reads [place] Discharge Disposition: [...] Date of Assessment Author No 03/17/2020 16:00 Tboy Nix RN * Are you blind or [...] on filedocumented in this encounter Care Teams Information Coordinator Relationship Specialty Start Date End Date Kylie Oglesby [address] [place] [address] PCP - General Internal Medicine - Primary Care 12/15/19 documented as of this encounter
--- OUTSIDE RECORDS SUMMARY | 2024-11-27 20:33 | XMS_ITS | Encounter Summary ---
Author Organization [facility] Address [address] [place] [address] Care Team Providers Care Cashier General Name Role Phone Kylie Oglesby Primary Care Provider [phone] Encounter Details Date Type Department Care Team (Late st Contact Info) Description 09/03/2024 Lab Requisition [facility] Pathology & Laboratory Medicine - [facility] [address] [place] [address] Outr Resulting Lab, Provider Social History Tobacco [...] SERUM FREE LIGHT CHAINS (09/03/2024 7:44 EST) [place] Free Lt Chain 3.23(H) 0.33 - 1.94 mg/dL 09/04/2024 9:44 EST [facility] Lambda Free Lt Chain 1.86 0.57 - 2.63 mg/dL 09/04/2024 9:44 EST [facility] [place]/Lambda Ratio 1.74(H) 0.26 - 1.65 09/04/2024 9:44 EST [facility] Blood VENOUS BLOOD / Unknown 09/03/2024 7:44 EST 09/03/2024 17:51 EST us Provider Outr Resulting Lab CHEMISTRY & BLOOD GA S ORDERABLES Final Result [facility] [address] [place] [address] documented in this encounter Visit Diagnoses Not on filedocumented in this encounter Care Teams Cashier General Relationship Specialty Start Date End Date Kylie Oglesby [address] [place] [address] PCP - General Internal Medicine - Primary Care 12/15/19 documented as of this encounter
--- OUTSIDE RECORDS SUMMARY | 2024-11-27 20:33 | XMS_ITS | Encounter Summary ---
Author Organization [facility] Address [address] [place] [address] Care Team Providers Care Industrial Radiographer Name Role Phone Kylie Oglesby Primary Care Provider [phone] Encounter Details Date Type Department Care Team (Late st Contact Info) Description 09/16/2024 Lab Requisition [facility] - [facility] [address] [place] [address] Outr Resulting Lab, Provider Social History Tobacco [...] (UPEP WITH IMMUNOTYPING) Routine 09/16/2024 11:10 EST documented in this encounter Results * URINE MONOCLONAL PROTEIN STUDY (UPEP WITH IMMUNOTYPING) PERFORMABLE (09/16/2024 11:10 EST) Albumin, Urine % 16.8 N/A % 09/17/20 13:57 [facility] Albumin, Urine mg/dL 2 mg/dL 09/17/2024 13:57 [facility] Globulins, Urine % 83.2 N/A % 09/17/2024 13:57 [facility] Globulins, Urine mg/dL 12 mg/dL 09/17/2024 13:57 [facility] UPEP Comment See Comment 09/17/2024 13:57 [facility] Comment:Electrophoresis scre ening performed; Immunotyping to follow. ??See scanned/supplementary report. Immunotyping, Urine Current Interpretatio n: Negative for free monoclonal light chains. Reviewed by: Mala Toussaint PhD and Angel Hawk MD 09/17/2024 1319 09/17/2024 13:57 EST [facility] Total Protein, Urine 14 See Note mg/dL 09/17/2024 13:57 EST [facility] Comment: NOTE: Reference range has not been established for total protein concentration in random urine specimens. Urine URINE / Unknown 09/16/2024 1 1:10 EST 09/16/2024 21:45 EST us Provider Outr Resulting Lab URINALYSIS ORDERABLE S Final Result Performing Organization Address [facility]/ZIP Co de Phone Number [facility] [address], [place] [id number] * PROTEIN, TOTAL, RANDOM, URINE (09/16/2024 11:10 EST) Urine URINE / Unknown 09/16/2024 1 1:10 EST 09/16/2024 21:45 EST us Provider Outr Resulting Lab URINALYSIS ORDERABLE S Final Result Performing Organization Address [facility]/ZIP Co de Phone Number [facility] [address], [place] [address] documented in this encounter Visit Diagnoses Not on filedocumented in this encounter Care Teams Industrial Radiographer Relationship Specialty Start Date End Date Kylie Oglesby [address] [place] [address] PCP - General Internal Medicine - Primary Care 12/15/19 documented as of this encounter
--- OUTSIDE RECORDS SUMMARY | 2024-11-27 20:33 | XMS_ITS | Encounter Summary ---
Author Organization [facility] Address [address] [place] [address] Care Team Providers Care Production Line Welder Name Role Phone Kylie Oglesby Primary Care Provider [phone] Reason for Referral * Referral (48 Hrs (Urgent)) - Closed Specialty Diagnoses / Procedures Referred By Kavitha burgos Referred To Contact Diagnoses Colovesical fistula Es Peace, MANOJ Phone: tel: fax: Referral ID Status Reason Start Date Expiration Date V isits Requested Visits Authorized [id number] Closed Specialty Services Required 03/25/2020 1 1 Question Answer I certify that this patient is under my care and that I, or another Medicare allowed practitioner (DO AGUSTINA, CHAYITO) working with me, had a rssp-ex-dple encounter with this patient on this date: 03/25/2020 I further certify that the brqb-yz-rxym encounter was in whole or in part [...] skilled care requested: Physical Therapy, Nursing asessment care home assessment needed related to this encounter: GI Status Physical therapy is needed for: Safety, Strength Training/Exercise Program, Gait/Mobility Assessment and Training Expected Discharge Date (Inpatient Only): 03/25/2020 * (Routine) - Receiving Office to Obtain Authorization Specialty Diagnoses / Procedures Referred By Kavitha t Referred To Contact Es Peaec NP Phone: tel: fax: Referral ID Status Reason Start Date Expiration Date Visits Requested Visits Authorized [id number] Receiving Office to Obtain Authorization Specialty Services Required 0 1 1 Comments Please call our clinic at [phone] to schedule a follow up appointment with your surgeon in 3-4 weeks. Call if you have any questions or concerns. * (Routine) - Receiving Office to Obtain Authorization Specialty Diagnoses / Procedures Referred By Kavitha burgos Referred To Contact Es Peace NP Phone: tel: fax: Referral ID Status Reason Start Date Expiration Date Visits Requested Visits Authorized [id number] Receiving Office to Obtain Authorization Specialty Services [...] Referred To Contact Diagnoses Colovesical fistula Procedures MA LAP,SURG,COLECTOMY, PARTIAL, W/ANAST Diagnostic laparoscopy with possible sigmoid colectomy Referral ID Status Reason Start Date Expiration Date Visits Re quested Visits Authorized [id number] 1 1 Encounter Details Date Type Department Care Team (Late st Contact Info) Description 03/17/2020 6:49 EDT - 03/26/2020 12:10 EDT Hospital Encounter [facility] General Surgery Unit [address] [place] [address] Sara Mendez MD [address] [facility], [facility] [address] [place] [address] Colovesical fistula (Primary Dx) Discharge [...] 03/01/2020 Added automatically from request for surgery [id number] ??? Diverticulitis 03/01/2020 Added automatically from request for surgery [id number] Resolved Hospital Problems No resolved problems to [...] Post Op Visit with Sara Mendez MD [facility] [place], [place] [facility] (--) [address] [place] [id number] Follow-up appointments and procedures Amb Consult/Follow Up Home Health Services I certify that this patient is under my care and that I, or another Medicare authorized non-physician practitioner ([place] or BUSINESS UNIT CONTROLLER) or resident working with me, had a tduh-nq-kisx encounter with this patient on this date: 03/25/2020 I further certify that the chxf-qi-efqi encounter was in whole or in part related to the reason thepatient needs home health care.: Yes The patient has had a rebr-ix-kmys visit by me or one of my [...] Follow-up Appointment Please call our clinic at [phone] to schedule a follow up appointment with [...] the patient and discussed with the resident/medical student/BUSINESS UNIT CONTROLLER team. I agree with the findings and plan of care documented in the resident's/medical student's/BUSINESS UNIT CONTROLLER's note. Sara Mendez Division of General Surgery [...] likely next 24-48 hours. HH agency is [facility]. Ami Gaona RN CCM [id number] * Korin Srivastava MD - 03/25/2020 0642 EDT Blue Surgery Progress Note Chief complaint: [...] General Surgery PGY2 X6298 * Es Peace, WRAPPING MACHINE TENDER - 03/24/2020 0822 EDT Surgery Daily Progress [...] fistula Added automatically from request for surgery [id number] ??? Diverticulitis Added automatically from request for surgery [id number] Jasbir Kate is a 79 y.o. male [...] Enoxaparin Es Peace APRN 03/24/2020 8:22 Pager #[phone] * Thania Landaverde 03/23/2020 1401 EDT Nutrition Note: Reason for Assessment: NPO/CL greater than/equal to 5 days Patient identified at risk due to NPO/CL day 6 today. Sounds to be having return of bowel function,NGT removed. Will continue to follow to see if needs full nutrition assessment. Thania Landaverde RD (Betsy), CD, [facility] B6 Dietitian Pager: [phone] * Jaguar Liang MD - 03/23/2020 0721 EDT Blue Surgery Progress Note Chief complaint: [...] attestation - Sara Mendez MD - 03/23/2020 4190 EDT Check drain creatinine, if ok, pull drain. I saw and examined the patient and discussed with the resident/medical student/BUSINESS UNIT CONTROLLER team. I agree with the findings and plan of care documented in the resident's/medical student's/BUSINESS UNIT CONTROLLER's note. Sara Mendez Division of General Surgery Colon and Rectal Surgery * Es Peace, WRAPPING MACHINE TENDER - 03/22/2020 0719 EDT Surgery Daily Progress [...] fistula Added automatically from request for surgery [id number] ??? Diverticulitis Added automatically from request for surgery [id number] ?? Jasbir Kate is a 79 y.o. [...] Enoxaparin Es Peace APRN 03/22/2020 7:19 Pager #[phone] Cosigned by Sara Mendez MD at 03/22/2020 7:55 EDT Associated attestation - Sara Mendez MD - 03/22/2020 8402 EDT + BM, continued flatus. Still distended, but much improved from Saturday. Will trial clamping, but will be slow to progress diet. Cystogram today. I saw and examined the patient and discussed with the resident/medical student/BUSINESS UNIT CONTROLLER team. I agree with the findings and plan of care documented in the resident's/medical student's/BUSINESS UNIT CONTROLLER's note. Sara Mendez Division of General Surgery [...] function Korin Srivastava MD General Surgery PGY1 X-0750 Attestation statement: I saw and examined the patient with the resident/fellow. I agree with the findings and plan of care documented in the resident's/fellow's note. Abdomen soft, slightly distended. NGT today. IVF. Keep kincaid in. Cystogram tomorrow. -Jett Bone MD * Korin Srivastava MD - 03/20/2020 5619 EDT Blue Surgery Progress Note Chief complaint: Colovesical Fistula Procedure: 03/17/2020 - Laparoscopic hand assisted sigmoid colectomy with rigid proctoscopy and flexible sigmoidoscopy with placement of 19Fr luis armando drain. 24 hour events: -Nausea and emesis this AM Subjective: [place] nauseous this morning and spit up what [...] function Korin Srivastava MD General Surgery PGY1 X-9555 * Jaguar Liang MD - 03/19/2020 0716 [...] the patient and discussed with the resident/medical student/BUSINESS UNIT CONTROLLER team. I agree with the findings and plan of care documented in the resident's/medical student's/BUSINESS UNIT CONTROLLER's note. Sara Mendez Division of General Surgery Colon and Rectal Surgery * Muriel Gaona - 03/18/2020 4038 EDT Initial Case Management/Social Work Assessment and Discharge Plan/Readmission Risk Assessment REASON FOR ADMISSION: Colovesical fistula now POD 1 sigmoidectomy and fistula takedown Patient understands reason for admission: Yes PATIENT CONTACT INFO VERIFIED: Yes PATIENT ADDRESS VERIFIED: Yes([address] [place] [address]) LIVING ARRANGEMENTS AND ACCESSIBILITY ISSUES: Living Arrangements: Spouse / significant other Levels: 1 Bathroom located on bedroom level?: Yes What in home social supports are available to the patient? Spouse / significant other Is 24/7 care available? Yes ADVANCED DIRECTIVES, POA &/or COLST IN PLACE: Healthcare Directive: Yes, patient has advance directive for healthcare treatment Type of Healthcare Directive: Durable power of educational fundraising director for health care Copy in Chart: Yes, new copy in paper chart @ [facility] DIRECTIVES FOR FINANCES: TRANSPORTATION: Transportation: [...] Health Services: Nurse visit DME Provider: Pharmacy: [id number] - [place], [place] - [address] AT [facility] [address] [place] & [facility] [address] [place] [address] Home Health: [facility] [...] the patient and discussed with the resident/medical student/BUSINESS UNIT CONTROLLER team. I agree with the findings and plan of care documented in the resident's/medical student's/BUSINESS UNIT CONTROLLER's note. Sara Mendez Division of General Surgery Colon and Rectal Surgery * Korin Srivastava MD - 03/17/2020 2898 EDT SURGERY POST-OP CHECK SUBJECTIVE: Is having lower abdominal pain near his incision, but states the pain has been relatively well controlled. Has not been OOB. Not passing flatus. Has tolerated sips of water without nauseaor vomiting. [place] chilled a couple hours ago, but feels [...] use Korin Srivastava MD 03/17/2020 15:55 Surgical Ball Point Splitter Pager #[phone] documented in this encounter H&P Notes * [...] been seen by the urology department at [facility] with Cathryn Monzon. She did [...] 25 years ago but has about a 06-puio-wzui history. drinks wine daily. 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 He goes to the gym 3 times a week and either sits on the bike or the [employer] machine. He denies any chest pain with [...] screened at designated points of entry to [facility] Patient and Family will be [...] to: PreOp TL, PreOp bedside RN, PACU job molder, Anesthesia and Surgeon. Managers as needed. ??? [...] dirty?? ) RN to receive patient from [facility] in [facility] Precaution PPE and transport [...] unless special circumstances (Child, cognitive impairment, and chef instructor). Pt temp: 36.5 Visitor Temp: Visitor Name: [...] surgeon consult No children <16 yo in [facility]. * OR Surgeon - Sara Mendez MD - 03/17/2020 0000 EDT OPERATIVE REPORT SERVICE DATE: 03/17/2020 SURGEON: Sara Mendez MD HEAT SET OPERATOR: Es Peace APRN (No qualified resident [...] extensively and ensured hemostasis. We left a 19-[place] Luis Armando drain from the left lower [...] AM / Sara Mendez MD jn Confirmation: [id number] Dictation ID: [id number] documented in this encounter Miscellaneous Notes * [...] Care - Renita Reid RN - 03/22/2020 8383 EDT Problem: Daily Care Plan Goals Goal: [...] Care - Moises Dent RN - 03/21/2020 6522 EDT Data: Pt on POD#4 from laparoscopic [...] Plan Documentation Outcome: Ongoing Flowsheets (Taken 03/19/2020 2061) Area of Focus: GI//Elimination Goal This Shift: [...] Care - Corey Bahena RN - 03/18/2020 0333 EDT Data: pt a/o x 3, s/p [...] - 03/17/2020 0754 EDT Date: 03/17/2020 Location: [facility] OR Name: Jasbir Kate, : 1940, Diagnosis Pre-op Diagnosis * Colovesical fistula [N32.1] * Diverticulitis [K57.92] Post-op Diagnosis * Colovesical fistula [N32.1] * Diverticulitis [K57.92] Procedures Diagnostic laparoscopy with possible sigmoid colectomy 64547 - MA LAP,SURG,COLECTOMY, PARTIAL, W/ANAST Laparoscopic hand assisted sigmoid colectomy with rigid proctoscopy and flexible sigmoidoscopy withplacement of 19Fr luis armando drain. Surgeons * Sara Mendez MD - Primary Procedure Summary Anesthesia: General ASA: ASA status not filed in the log. Estimated Blood Loss: 50cc Total IV Fluids: 700 mL Urine Output: 50cc Sheryl LDAs: PIV Staff: [employer] Merchandising Coordinator: Valeria Gaspar RN Scrub Person: Vincelette, Adonay, RN Patient Chief Projectionist: Alexandrea García Indications: Tony Kate is an [...] (No=0, Yes=1) Blood loss 0 (<500=0, 500-1000=1, 9202-7558=3, >2000=6) Duration of procedure 1(<2:00=0, 2:00-2:59=1, 3:00-3:59=2, [...] 10 - 26 mg/dL 03/24/2020 6:25 EDT [facility] Blood VENOUS BLOOD / Unknown Venipuncture / Unknown 03/24/2020 5:36 EDT 03/24/2020 5:56 EDT us Bahman Perez MD CHEMISTRY & BLOOD GAS ORDERABL ES Final Result Performing Organization Address [facility] de Phone Number [facility] [address] [place] [address] * (ABNORMAL) CALCIUM (03/24/2020 5:36 EDT) Calcium 8.2(L) 8.5 - 10.5 mg/dL 03/24/2020 6:25 EDT [facility] Calculated Calcium 9.2 8.5 - 10.5 mg/dL 03/24/2020 6:25 EDT [facility] Blood VENOUS BLOOD / Unknown Venipuncture / Unknown 03/24/2020 5:36 EDT 03/24/2020 5:56 EDT us Bahman Perez MD CHEMISTRY & BLOOD GAS ORDERABL ES Final Result Performing Organization Address [facility] de Phone Number [facility] [address] [place] [address] * (ABNORMAL) COMPLETE BLOOD COUNT AND DIFFERENTIAL (03/24/2020 5:36 EDT) WBC 8.68 4.00 - 10.40 K/cmm 03/24/2020 6:02 [facility] RBC 4.38 4.36 - 5.78 M/cmm 03/24/2020 6:02 [facility] Hemoglobin 14.1 13.8 - 17.3 gm/dL 03/24/2020 6:02 [facility] HCT 42.2 39.5 - 50.2 % 03/24/2020 6:02 [facility] MCV 96(H) 81 - 95 fl 03/24/2020 6:02 [facility] MCH 32.2 27.6 - 33.0 pg 03/24/2020 6:02 [facility] MCHC 33.4 32.8 - 36.4 gm/dL 03/24/2020 6:02 [facility] RDW-CV 12.2 <14.2 % 03/24/2020 6:02 [facility] RDW-SD 43.7 <46.0 fl 03/24/2020 6:02 [facility] PLT 265 141 - 377 K/cm 03/24/2020 6:02 [facility] MPV 10.2 9.5 - 12.7 fl 03/24/2020 6:02 [facility] % Neutrophils 72.3 % 03/24/2020 6:02 [facility] % Lymphocytes 17.1 % 03/24/2020 6:02 [facility] % Monocytes 7.1 % 03/24/2020 6:02 [facility] % Eosinophils 2.6 % 03/24/2020 6:02 [facility] % Basophils 0.3 % 03/24/2020 6:02 [facility] % Immature Grans 0.6 % 03/24/20 20 6:02 [facility] Absolute Neutrophils 6.27 2.20 - 8.85 K/cmm 03/24/2020 6:02 [facility] Absolute Lymphocytes 1.48 1.09 - 3.30 K/cmm 03/24/2020 6:02 [facility] Absolute Monocytes 0.62 0.10 - 0.80 K/cm 03/24/2020 6:02 [facility] Absolute Eosinophils 0.23 0.03 - 0.61 K/cmm 03/24/2020 6:02 [facility] ABS Basophils 0.03 0.01 - 0.11 K/cm 03/24/2020 6:02 [facility] Absolute Immature Grans 0.05 0.00 - 0.06 K/cmm 03/24/2020 6:02 [facility] Type of Differential: Auto 03/24/2020 6:02 EDT [facility] Blood VENOUS BLOOD / Unknown Venipuncture / Unknown 03/24/2020 5:36 EDT 03/24/2020 5:54 EDT us Bahman Perez MD PACKAGES & DNA PROBE ORDERABLE S Final Result Performing Organization Address [facility] de Phone Number [facility] [address] [place] [address] * CREATININE (03/24/2020 5:36 EDT) Creatinine 0.66 0.66 - 1.25 mg/dL 03/24/2020 6:25 EDT [facility] eGFR 93 >60 mL/min/1.7 3m2 03/24/2020 6:25 EDT [facility] Comment:eGFR calculated ernesto cee CKD-EPI equation for non- Americans. Multiply eGFR by 1.16 for patients. Blood VENOUS BLOOD / Unknown Venipuncture / Unknown 03/24/2020 5:36 EDT 03/24/2020 5:56 EDT us Bahman Perez MD CHEMISTRY & BLOOD GAS ORDERABL ES Final Result Performing Organization Address [facility] Co de Phone Number [facility] [address] [place] [address] * ELECTROLYTES (03/24/2020 5:36 EDT) Sodium 139 136 - 145 mEq/L 03/24/2020 6:25 EDT [facility] Potassium 3.9 3.5 - 5.0 mEq/L 03/24/2020 6:25 EDT [facility] Chloride 108 96 - 110 mEq/L 03/24/2020 6:25 EDT [facility] CO2 Total 23 22 - 32 mEq/L 03/24/2020 6:25 EDT [facility] Blood VENOUS BLOOD / Unknown Venipuncture / Unknown 03/24/2020 5:36 EDT 03/24/2020 5:56 EDT Bahman Perez MD CHEMISTRY & BLOOD GAS ORDERABL ES Final Result Performing Organization Address [facility]/ZIP Co de Phone Number [facility] [address] [place] [address] * MAGNESIUM (03/24/2020 5:36 EDT) Magnesium 2.4 1.7 - 2.8 mg/dL 03/24/2020 6:25 EDT [facility] Blood VENOUS BLOOD / Unknown Venipuncture / Unknown 03/24/2020 5:36 EDT 03/24/2020 5:56 EDT Bahman Perez MD CHEMISTRY & BLOOD GAS ORDERABL ES Final Result Performing Organization Address [facility] Co de Phone Number [facility] [address] [place] [address] * CREATININE, FLUID (03/23/2020 12:34 EDT) Creatinine, Fluid 0.66 See Note mg/dL 03/23/2020 14:55 EDT [facility] Comment: Peritoneal Fluid Reference range unavailable. Clinical correlation required. This Fluid Creatinine assay was developed and its performance characteristics determined by [facility]. ??It has not been cleared or approved by the [place] Food and Drug Administration. Fluid PERITONEAL FLUID / Unknown 03/23/2020 12:34 EDT 03/23/2020 14:35 EDT Jaguar Liang MD GEN LAB UNIT COLLECT ORDERABLE S Final Result Performing Organization Address [facility] Co de Phone Number [facility] [address] [place] [address] * HN LAB CBC SMEAR REVIEW (03/23/2020 7:48 EDT) Differential Comment Slide was examined by a technologist to verify the WBC and/or platelet count. 03/23/2020 8:42 EDT [facility] Blood VENOUS BLOOD / Unknown Venipuncture / Unknown 03/23/2020 7:48 EDT 03/23/2020 8:05 EDT us Clayton Reynoso MD HEMATOLOGY & PF4 ORDERABLES Final Result [facility] [address] [place] [address] * (ABNORMAL) COMPLETE BLOOD COUNT AND DIFFERENTIAL (03/23/2020 7:48 EDT) WBC 10.38 4.00 - 10.40 K/cmm 03/23/2020 8:43 EDT [facility] RBC 4.91 4.36 - 5.78 M/cmm 03/23/2020 8:43 EDT [facility] Hemoglobin 16.0 13.8 - 17.3 gm/dL 03/23/2020 8:43 T [facility] HCT 46.9 39.5 - 50.2 % 03/23/2020 8:43 [facility] MCV 96(H) 81 - 95 fl 03/23/2020 8:43 EDT [facility] MCH 32.6 27.6 - 33.0 pg 03/23/2020 8:43 EDT [facility] MCHC 34.1 32.8 - 36.4 gm/dL 03/23/2020 8:43 T [facility] RDW-CV 12.3 <14.2 % 03/23/2020 8:43 [facility] RDW-SD 42.5 <46.0 fl 03/23/2020 8:43 T [facility] PLT 03/23/2020 8:43 [facility] Comment:Unreportable due to presence of platelet clumps. MPV 03/23/2020 8[facility] Comment:Not Available % Neutrophils 77.3 % 03/23/2020 8[facility] % Lymphocytes 13.8 % 03/23/2020 8:43 [facility] % Monocytes 6.8 % 03/23/2020 8:43 [facility] % Eosinophils 1.2 % 03/23/2020 8:43 [facility] % Basophils 0.4 % 03/23/2020 8:43 EDT [facility] % Immature Grans 0.5 % 03/23/20 20 8:43 T [facility] Absolute Neutrophils 8.03 2.20 - 8.85 K/cmm 03/23/2020 8:43 T [facility] Absolute Lymphocytes 1.43 1.09 - 3.30 K/cmm 03/23/2020 8:43 T [facility] Absolute Monocytes 0.71 0.10 - 0.80 K/cm 03/23/2020 8:43 T [facility] Absolute Eosinophils 0.12 0.03 - 0.61 K/cm 03/23/2020 8:43 T [facility] ABS Basophils 0.04 0.01 - 0.11 K/cmm 03/23/2020 8:43 T [facility] Absolute Immature Grans 0.05 0.00 - 0.06 K/cmm 03/23/2020 8:43 EDT [facility] Type of Differential: Auto 03/23/2020 8:43 EDT [facility] Blood VENOUS BLOOD / Unknown Venipuncture / Unknown 03/23/2020 7:48 EDT 03/23/2020 8:05 EDT us Clayton Reynoso MD PACKAGES & DNA PROBE ORDERA BLES Final Result [facility] [address] [place] [address] * CALCIUM (03/23/2020 7:48 EDT) Calcium 8.7 8.5 - 10.5 mg/dL 03/23/2020 8:14 EDT [facility] Calculated Calcium 9.0 8.5 - 10.5 mg/dL 03/23/2020 8:14 EDT [facility] Blood VENOUS BLOOD / Unknown Venipuncture / Unknown 03/23/2020 7:48 EDT 03/23/2020 7:55 EDT us Clayton Reynoso MD CHEMISTRY & BLOOD GAS ORDER RENEE Final Result [facility] [address] [place] [address] * MAGNESIUM (03/23/2020 7:48 EDT) Magnesium 2.5 1.7 - 2.8 mg/dL 03/23/2020 8:14 EDT [facility] Blood VENOUS BLOOD / Unknown Venipuncture / Unknown 03/23/2020 7:48 EDT 03/23/2020 7:55 EDT Clayton Reynoso MD CHEMISTRY & BLOOD GAS ORDER RENEE Final Result Performing Organization Address [facility] de Phone Number [facility] [address] [place] [address] * (ABNORMAL) ELECTROLYTES (03/23/2020 7:48 EDT) Pathologist [facility] Sodium 143 136 - 145 mEq/L 03/23/2020 8:14 EDT [facility] Potassium 3.2(L) 3.5 - 5.0 mEq/L 03/23/2020 8:14 EDT [facility] Chloride 109 96 - 110 mEq/L 03/23/2020 8:14 EDT [facility] CO2 Total 25 22 - 32 mEq/L 03/23/2020 8:14 EDT [facility] Blood VENOUS BLOOD / Unknown Venipuncture / Unknown 03/23/2020 7:48 EDT 03/23/2020 7:55 EDT Clayton Reynoso MD CHEMISTRY & BLOOD GAS ORDER RENEE Final Result Performing Organization Address City/[facility]/ZIP Co de Phone Number [facility] [address] [place] [address] * (ABNORMAL) CREATININE (03/23/2020 7:48 EDT) Creatinine 0.62(L) 0.66 - 1.25 mg/dL 03/23/2020 8:14 EDT [facility] eGFR 95 >60 mL/min/1.7 3m2 03/23/2020 8:14 EDT [facility] Comment:eGFR calculated ernesto cee CKD-EPI equation for non- Americans. Multiply eGFR by 1.16 for patients. Blood VENOUS BLOOD / Unknown Venipuncture / Unknown 03/23/2020 7:48 EDT 03/23/2020 7:55 EDT Clayton Reynoso MD CHEMISTRY & BLOOD GAS ORDER RENEE Final Result Performing Organization Address [facility]/ZIP Co de Phone Number [facility] [address] [place] [address] * BUN (03/23/2020 7:48 EDT) BUN 16 10 - 26 mg/dL 03/23/2020 8:14 EDT [facility] Blood VENOUS BLOOD / Unknown Venipuncture / Unknown 03/23/2020 7:48 EDT 03/23/2020 7:55 EDT Clayton Reynoso MD CHEMISTRY & BLOOD GAS ORDER RENEE Final Result Performing Organization Address [facility] de Phone Number [facility] [address] [place] [address] * FL CYSTOGRAM (03/22/2020 9:43 EDT) Anatomical [...] bladder Comparison: CT abdomen pelvis 12/14/2019. FINDINGS: Hospitality House Supervisor KUB film of the abdomen shows the [...] frombladder Comparison: CT abdomen pelvis 12/14/2019. FINDINGS: [facility] Supervisor KUB film of the abdomen shows the [...] 4.00 - 10.40 K/cmm 03/19/2020 6:54 EDT [facility] RBC 5.19 4.36 - 5.78 M/cmm 03/19/2020 6:54 EDT [facility] Hemoglobin 16.7 13.8 - 17.3 gm/dL 03/19/2020 6:54 EDT [facility] HCT 49.2 39.5 - 50.2 % 03/19/2020 6:54 EDT [facility] MCV 95 81 - 95 fl 03/19/2020 6:54 EDT [facility] MCH 32.2 27.6 - 33.0 pg 03/19/2020 6:54 T [facility] MCHC 33.9 32.8 - 36.4 gm/dL 03/19/2020 6:54 EDT [facility] RDW-CV 12.4 <14.2 % 03/19/2020 6:54 EDT [facility] RDW-SD 43.0 <46.0 fl 03/19/2020 6:54 EDT [facility] PLT 233 141 - 377 K/cmm 03/19/2020 6:54 T [facility] MPV 10.4 9.5 - 12.7 fl 03/19/2020 6:54 T [facility] Blood VENOUS BLOOD / Unknown Venipuncture / Unknown 03/19/2020 6:39 EDT 03/19/2020 6:44 EDT us Clayton Reynoso MD HEMATOLOGY & PF4 ORDERABLES Final Result [facility] [address] [place] [address] * (ABNORMAL) ELECTROLYTES (03/19/2020 6:39 EDT) Sodium 138 136 - 145 mEq/L 03/19/2020 7:21 EDT [facility] Potassium 4.1 3.5 - 5.0 mEq/L 03/19/2020 7:21 EDT [facility] Chloride 106 96 - 110 mEq/L 03/19/2020 7:21 EDT [facility] CO2 Total 20(L) 22 - 32 mEq/L 03/19/2020 7:21 EDT [facility] Blood VENOUS BLOOD / Unknown Venipuncture / Unknown 03/19/2020 6:39 EDT 03/19/2020 6:51 EDT us Clayton Reynoso MD CHEMISTRY & BLOOD GAS ORDER RENEE Final Result Performing Organization Address [facility] Co de Phone Number [facility] [address] [place] [address] * (ABNORMAL) CREATININE (03/19/2020 6:39 EDT) Creatinine 0.63(L) 0.66 - 1.25 mg/dL 03/19/2020 7:21 EDT [facility] eGFR 94 >60 mL/min/1.7 3m2 03/19/2020 7:21 EDT [facility] Comment:eGFR calculated ernesto cee CKD-EPI equation for non- Americans. Multiply eGFR by 1.16 for patients. Blood VENOUS BLOOD / Unknown Venipuncture / Unknown 03/19/2020 6:39 EDT 03/19/2020 6:51 EDT us Clayton Reynoso MD CHEMISTRY & BLOOD GAS ORDER RENEE Final Result Performing Organization Address [facility] Co de Phone Number [facility] [address] [place] [address] * BUN (03/19/2020 6:39 EDT) BUN 14 10 - 26 mg/dL 03/19/2020 7:21 EDT [facility] Blood VENOUS BLOOD / Unknown Venipuncture / Unknown 03/19/2020 6:39 EDT 03/19/2020 6:51 EDT us Clayton Reynoso MD CHEMISTRY & BLOOD GAS ORDER RENEE Final Result [facility] [address] [place] [address] * (ABNORMAL) COMPLETE BLOOD COUNT (03/18/2020 18:25 EDT) WBC 14.98(H) 4.00 - 10.40 K/cmm 03/18/2020 18:39 EDT [facility] RBC 4.98 4.36 - 5.78 M/cmm 03/18/2020 18:39 EDT [facility] Hemoglobin 16.4 13.8 - 17.3 gm/dL 03/18/2020 18:39 T [facility] HCT 47.5 39.5 - 50.2 % 03/18/2020 18:39 T [facility] MCV 95 81 - 95 fl 03/18/2020 18:39 T [facility] MCH 32.9 27.6 - 33.0 pg 03/18/2020 18:39 T [facility] MCHC 34.5 32.8 - 36.4 gm/dL 03/18/2020 18:39 T [facility] RDW-CV 12.5 <14.2 % 03/18/2020 18:39 [facility] RDW-SD 43.9 <46.0 fl 03/18/2020 18:39 [facility] PLT 203 141 - 377 K/cmm 03/18/2020 18:39 [facility] MPV 10.3 9.5 - 12.7 fl 03/18/2020 18:39 T [facility] Blood VENOUS BLOOD / Unknown Venipuncture / Unknown 03/18/2020 18:25 EDT 03/18/2020 18:31 EDT us Clayton Reynoso MD HEMATOLOGY & PF4 ORDERABLES Final Result [facility] [address] [place] [address] * (ABNORMAL) COMPLETE BLOOD COUNT (03/18/2020 16:02 EDT) WBC 16.21(H) 4.00 - 10.40 K/cmm 03/18/2020 16:52 EDT [facility] RBC 5.27 4.36 - 5.78 M/cmm 03/18/2020 16:52 T [facility] Hemoglobin 17.2 13.8 - 17.3 gm/dL 03/18/2020 16:52 T [facility] HCT 50.9(H) 39.5 - 50.2 % 03/18/2020 16:52 EDT [facility] MCV 97(H) 81 - 95 fl 03/18/2020 16:52 EDT [facility] MCH 32.6 27.6 - 33.0 pg 03/18/2020 16:52 [facility] MCHC 33.8 32.8 - 36.4 gm/dL 03/18/2020 16:52 [facility] RDW-CV 12.5 <14.2 % 03/18/2020 16:52 [facility] RDW-SD 45.0 <46.0 fl 03/18/2020 16:52 [facility] PLT 226 141 - 377 K/cmm 03/18/2020 16:52 [facility] MPV 10.4 9.5 - 12.7 fl 03/18/2020 16:52 [facility] Blood VENOUS BLOOD / Unknown Venipuncture / Unknown 03/18/2020 16:02 EDT 03/18/2020 16:32 EDT us Es Peace BUSINESS UNIT CONTROLLER HEMATOLOGY & PF4 ORDERABLES F inal Result [facility] [address] [place] [address] * (ABNORMAL) CALCIUM (03/18/2020 6:55 EDT) Calcium 8.4(L) 8.5 - 10.5 mg/dL 03/18/2020 18:27 EDT [facility] Calculated Calcium 8.9 8.5 - 10.5 mg/dL 03/18/2020 18:27 [facility] Blood VENOUS BLOOD / Unknown Venipuncture / Unknown 03/18/2020 6:55 EDT 03/18/2020 7:04 EDT Clayton Reynoso MD CHEMISTRY & BLOOD GAS ORDER RENEE Final Result Performing Organization Address [facility] de Phone Number [facility] [address] [place] [address] * MAGNESIUM (03/18/2020 6:55 EDT) Magnesium 2.1 1.7 - 2.8 mg/dL 03/18/2020 18:27 EDT [facility] Blood VENOUS BLOOD / Unknown Venipuncture / Unknown 03/18/2020 6:55 EDT 03/18/2020 7:04 EDT Clayton Reynoso MD CHEMISTRY & BLOOD GAS ORDER RENEE Final Result Performing Organization Address [facility] de Phone Number [facility] [address] [place] [address] * (ABNORMAL) COMPLETE BLOOD COUNT AND DIFFERENTIAL (03/18/2020 6:55 EDT) WBC 11.94(H) 4.00 - 10.40 K/cmm 03/18/2020 7:14 [facility] RBC 4.65 4.36 - 5.78 M/cmm 03/18/2020 7:14 [facility] Hemoglobin 15.3 13.8 - 17.3 gm/dL 03/18/2020 7:14 [facility] HCT 44.3 39.5 - 50.2 % 03/18/2020 7:14 [facility] MCV 95 81 - 95 fl 03/18/2020 7:14 [facility] MCH 32.9 27.6 - 33.0 pg 03/18/2020 7:14 [facility] MCHC 34.5 32.8 - 36.4 gm/dL 03/18/2020 7:14 [facility] RDW-CV 12.5 <14.2 % 03/18/2020 7:14 [facility] RDW-SD 43.6 <46.0 fl 03/18/2020 7:14 [facility] PLT 184 141 - 377 K/cmm 03/18/2020 7:14 [facility] MPV 10.0 9.5 - 12.7 fl 03/18/2020 7:14 [facility] % Neutrophils 76.9 % 03/18/2020 7:14 [facility] % Lymphocytes 14.4 % 03/18/2020 7:14 [facility] % Monocytes 8.1 % 03/18/2020 7:14 [facility] % Eosinophils 0.1 % 03/18/2020 7:14 [facility] % Basophils 0.2 % 03/18/2020 7:14 [facility] % Immature Grans 0.3 % 03/18/20 7:14 [facility] Absolute Neutrophils 9.18(H) 2.20 - 8.85 K/cmm 03/18/2020 7:14 [facility] Absolute Lymphocytes 1.72 1.09 - 3.30 K/cmm 03/18/2020 7:14 [facility] Absolute Monocytes 0.97(H) 0.10 - 0.80 K/cmm 03/18/2020 7:14 [facility] Absolute Eosinophils 0.01(L) 0.03 - 0.61 K/cmm 03/18/2020 7:14 [facility] ABS Basophils 0.02 0.01 - 0.11 K/cmm 03/18/2020 7:14 [facility] Absolute Immature Grans 0.04 0.00 - 0.06 K/cmm 03/18/2020 7:14 [facility] Type of Differential: Auto 03/18/2020 7:14 [facility] Blood VENOUS BLOOD / Unknown Venipuncture / Unknown 03/18/2020 6:55 EDT 03/18/2020 7:06 EDT Es N Binhia [employer] CONTROLLER PACKAGES & DNA PROBE ORDERABL ES Final Result Performing Organization Address City/[facility]/ZIP Co de Phone Number [facility] [address] [place] [address] * CREATININE (03/18/2020 6:55 EDT) Creatinine 0.79 0.66 - 1.25 mg/dL 03/18/2020 7:35 EDT [facility] eGFR 86 >60 mL/min/1.7 3m2 03/18/2020 7:35 EDT [facility] Comment:eGFR calculated ernesto cee CKD-EPI equation for non- Americans. Multiply eGFR by 1.16 for patients. Blood VENOUS BLOOD / Unknown Venipuncture / Unknown 03/18/2020 6:55 EDT 03/18/2020 7:04 EDT Es N Binhia BUSINESS UN[employer] CONTROLLER CHEMISTRY & BLOOD GAS ORDERAB LES Final Result Performing Organization Address [facility]/ZIP Co de Phone Number [facility] [address] [place] [address] * BUN (03/18/2020 6:55 EDT) BUN 12 10 - 26 mg/dL 03/18/2020 7:35 EDT [facility] Blood VENOUS BLOOD / Unknown Venipuncture / Unknown 03/18/2020 6:55 EDT 03/18/2020 7:04 EDT Es N Mucia BUSINESS UN[employer] CONTROLLER CHEMISTRY & BLOOD GAS ORDERAB LES Final Result [facility] [address] [place] [address] * (ABNORMAL) ELECTROLYTES (03/18/2020 6:55 EDT) Sodium 135(L) 136 - 145 mEq/L 03/18/2020 7:35 EDT [facility] Potassium 4.2 3.5 - 5.0 mEq/L 03/18/2020 7:35 EDT [facility] Chloride 104 96 - 110 mEq/L 03/18/2020 7:35 EDT [facility] CO2 Total 23 22 - 32 mEq/L 03/18/2020 7:35 EDT [facility] Blood VENOUS BLOOD / Unknown Venipuncture / Unknown 03/18/2020 6:55 EDT 03/18/2020 7:04 EDT us Es Peace [employer] CONTROLLER CHEMISTRY & BLOOD GAS ORDERAB LES Final Result [facility] [address] [place] [address] * (ABNORMAL) SCREENING GLUCOSE (03/18/2020 6:55 EDT) Glucose, Screening 107(H) 70 - 100 mg/dL 03/18/2020 7:35 EDT [facility] Blood VENOUS BLOOD / Unknown Venipuncture / Unknown 03/18/2020 6:55 EDT 03/18/2020 7:04 EDT us Es Peace NP CHEMISTRY & BLOOD GAS ORDERAB LES Final Result Performing Organization Address City/[facility]/ZIP Co de Phone Number [facility] [address] [place] [address] * BACTERIAL CULTURE, BLOOD (03/17/2020 18:20 EDT) Organism ID No Growth at 5 days 03/22/2020 19:15 EDT [facility] Blood VENOUS BLOOD / Unknown Blood Culture / Unknown 03/17/2020 18:20 EDT 03/17/2020 19:10 EDT us Jaguar Liang MD MICROBIOLOGY - GENERAL ORDERAB LES Final Result [facility] [address] [place] [address] * BACTERIAL CULTURE, BLOOD (03/17/2020 18:13 EDT) Organism ID No Growth at 5 days 03/22/2020 19:15 EDT [facility] Blood VENOUS BLOOD / Unknown Blood Culture / Unknown 03/17/2020 18:13 EDT 03/17/2020 19:10 EDT us Jaguar Liang MD MICROBIOLOGY - GENERAL ORDERAB LES Final Result Performing Organization Address [facility]/ZIP Co de Phone Number [facility] [address] [place] [address] * BACTERIAL CULTURE, URINE (03/17/2020 17:59 EDT) Organism ID No Growth 03/19/2020 8:17 EDT [facility] Urine URINE SPECIMEN OBTAINED BY SINGLE CATHETERIZATION OF URINARY BLADDER / Unknown Urine Collect / Unknown 03/17/2020 17:59 EDT 03/17/2020 18:35 EDT us Jaguar Liang MD MICROBIOLOGY - GENERAL ORDERAB LES Final Result Performing Organization Address City/[facility] Co de Phone Number [facility] [address] [place] [address] * (ABNORMAL) URINE CHEMICAL (DIP) & SEDIMENT (MICRO) WITH REFLEX TO CULTURE (03/17/2020 17:59 EDT) Color UA Yellow Colorless, Yellow 03/17/2020 18:35 EDT [facility] Clarity UA Clear Clear 03/17/2020 18:35 EDT [facility] Glucose UA Negative Negative 03/17/2020 18:35 EDT [facility] Bilirubin UA Negative Negative 03/17/2020 18:35 T [facility] Ketones UA 1+(A) Negative 03/17/2020 18:35 T [facility] Specific [place], Urine 1.028 1.001 - 1.035 03/17/2020 18:35 T [facility] Blood UA 3+(A) Negative 03/17/2020 18:35 EDT [facility] Urobilinogen UA Normal Normal mg/dL 020 18:35 T [facility] Nitrite UA Negative Negative 03/17/2020 18:35 [facility] Leukocyte Esterase UA 2+(A) Negative 03/17/2020 18:35 [facility] Protein UA 2+(A) Negative 03/17/2020 18:35 [facility] pH, UA 6.0 4.6 - 8.0 03/17/2020 18:35 [facility] Urine RBC Count, Auto >50(A) 0 - 2 Cells/HPF 03/17/2020 18:35 [facility] Urine WBC Count, Auto >50(A) 0 - 3 Cells/HPF 03/17/2020 18:35 [facility] Urine Squamous Count, Auto None Seen None Seen Cells/HPF 03/17/2020 18:35 [facility] Urine Hyaline Cast Count, Auto <=10 <=10 Casts/LPF 03/17/2020 18:35 [facility] Urine Bacteria Count, Auto None Seen None Seen Bacteria/HPF 03/17/2020 18:35 [facility] Urine URINE SPECIMEN OBTAINED BY SINGLE CATHETERIZATION OF URINARY BLADDER / Unknown Urine Collect / Unknown 03/17/2020 17:59 EDT 03/17/2020 18:05 T [facility] - 03/17/2020 18:35 EDT A Urine Culture test has been reflexively ordered based on result criteria from the Urine Sediment Analysis. Urine Sediment Analysis results are unreliable on urines that are unrefrigerated for >2 hrs or refrigerated >8 hrs. us Jaguar Liang MD URINALYSIS ORDERABLES Final Re sult [facility] [address] [place] [address] * SURGICAL PATHOLOGY (03/17/2020 10:30 EDT) Final Diagnosis A. 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 - Negative for dysplasia and malignancy. - Surgical resection margins viable. 03/22/2020 15:14 [facility] at 1514 Attestation There was significant resident/fellow involvement in the diagnostic evaluation of this case. By the signature below, the attending physician certifies that they have personally conducted a gross and/or microscopic examination of the described specimens and rendered or confirmed the above diagnosis. 03/22/2020 15:14 [facility] at 1514 Clinical History Colovesical fistula; diverticulitis 03/22/2020 15:14 T [facility] Gross Description A. Received in [...] surrounding mesentery reveals lobulated, yellow cut surfaces. Md Ophthalmologist sections are submitted as follows: BLOCK HENSON A1- stapled margin, en face A2-A3- open margin, bisected, en face A4-A7- sections of diverticula A8- section of separate donut Kim Joel 03/18/2020 8:05 03/22/2020 15:14 T [facility] Resident/Vish w: Chance Crouch MD 03/22/2020 15:14 [facility] Scanned Images 03/22/2020 15:14 [facility] Tissue ENTIRE SIGMOID COLON / Unknown 03/17/2020 10:30 EDT 03/17/2020 16:33 EDT us Sara Mendez MD PATHOLOGY ORDERABLES Final Res ult [facility] [address] [place] [address] documented in this encounter Visit Diagnoses Diagnosis [...] 02/26 documented in this encounter Care Teams Production Line Welder Relationship Specialty Start Date End Date Kylie Oglesby [address] [place] [address] PCP - General Internal Medicine - Primary Care 12/15/19 documented as of this encounter
--- OUTSIDE RECORDS SUMMARY | 2024-11-27 20:33 | XMS_ITS | Encounter Summary ---
Author Organization [facility] Address [address] [place] [address] Care Team Providers Care Residential Tech Name Role Phone Kylie Oglesby Primary Care Provider [phone] Reason for Visit * Reason Onset Date Comments Medication Questions 07/05/2020 Encounter Details Date Type Department Care Team (Late st Contact Info) Description 07/05/2020 Telephone [facility] [address] [place] [address] James Chin MD [address] [place] [address] Medication Questions Social History Tobacco [...] on filedocumented in this encounter Care Teams Residential Tech Relationship Specialty Start Date End Date Kylie Oglesby [address] [place] [address] PCP - General Internal Medicine - Primary Care 12/15/19 documented as of this encounter
--- OUTSIDE RECORDS SUMMARY | 2024-11-27 20:33 | XMS_ITS | Encounter Summary ---
Author Organization [facility] Address [address] [place] [address] Care Team Providers Care Assembly Worker Name Role Phone Kylie Oglesby Primary Care Provider [phone] Encounter Details Date Type Department Care Team (Late st Contact Info) Description 09/03/2024 Lab Requisition [facility] Pathology & Laboratory Medicine - [facility] [address] [place] [address] Outr Resulting Lab, Provider Social History Tobacco [...] Date of Assessment Author No 03/17/2020 16:00 Toyb Nix RN * Do you have difficulty [...] 58.5 55.8 - 66.1 % 09/04/2024 15:04 [facility] Albumin g/dL 4.3 3.6 - 5.2 g/dL 09/04/2024 15:04 [facility] Alpha-1 % 3.5 2.9 - 4.9 % 09/04/2024 15:04 [facility] Alpha-1 g/dL 0.30 0.15 - 0.40 g/dL 09/04/2024 15:04 [facility] Alpha-2 % 10.4 7.1 - 11.8 % 09/04/2024 15:04 [facility] Alpha-2 g/dL 0.80 0.50 - 1.00 g/dL 09/04/2024 15:04 [facility] Beta % 13.7(H) 8.4 - 13.1 % 09/04/2024 15:04 [facility] Beta g/dL 1.00 0.60 - 1.20 g/dL 09/04/2024 15:04 [facility] Gamma % 13.9 11.1 - 18.8 % 09/04/2024 15:04 [facility] Gamma g/dL 1.00 0.60 - 1.60 g/dL 09/04/2024 15:04 [facility] SPEP Comment No apparent monoclonal protein seen on serum electrophoresis 09/04/2024 15:04 [facility] Comment:See scanned/suppleme ntary report. Immunotyping , Serum Current interpretation: Negative for monoclonal immunoglobulins. Reviewed by: Mala Toussaint PhD and Angel Hawk MD 09/04/2024 1433 09/04/2024 15:04 [facility] Total Protein 7.3 6.3 - 8.2 g/dL 09/04/2024 15:04 [facility] Blood VENOUS BLOOD / Unknown 09/03/2024 7:44 EST 09/03/2024 17:51 EST us Provider Outr Resulting Lab CHEMISTRY & BLOOD GA S ORDERABLES Final Result Performing Organization Address City/[facility]/ZIP Co de Phone Number [facility] [address] [place] [id number] * PROTEIN, TOTAL (09/03/2024 7:44 EST) Blood VENOUS BLOOD / Unknown 09/03/2024 7:44 EST 09/03/2024 17:51 EST us Provider Outr Resulting Lab CHEMISTRY & BLOOD GA S ORDERABLES Final Result Performing Organization Address City/[facility]/ZIP Co de Phone Number [facility] [address] [place] [id number] documented in this encounter Visit Diagnoses Not on filedocumented in this encounter Care Teams Assembly Worker Relationship Specialty Start Date End Date Kylie Oglesby [address] [place] [address] PCP - General Internal Medicine - Primary Care 12/15/19 documented as of this encounter
--- OUTSIDE RECORDS SUMMARY | 2024-11-27 20:33 | XMS_ITS | Encounter Summary ---
Author Organization [facility] Address [address] [place] [address] Care Team Providers Care Senior Systems Developer Name Role Phone Kylie Oglesby Primary Care Provider [phone] Reason for Visit * Reason Comments Follow-up Encounter Details Date Type Department Care Team (Late st Contact Info) Description 06/28/2020 14:30 EDT Office Visit [facility] General Surgery - [facility] [address] [place], [place] [address] Sara Mendez MD [address] [facility] [place] [address] Colovesical fistula (Primary Dx) Social [...] seen by the urology department at [facility] with Cathryn Monzon. 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 ??He denies any chest pain with exertion, but does have some shortness of breath if he walks out 2 flights of stairs ?? Colonoscopy was about 2 to 3 years ago at [facility]. ??He states it was normal. [...] diverticulitis ??? Frequent UTI started having issues [id number], never been hospitalized for uti ??? History [...] fistula documented in this encounter Care Teams Senior Systems Developer Relationship Specialty Start Date End Date Kylie Oglesby [address] [place] [address] PCP - General Internal Medicine - Primary Care 12/15/19 documented as of this encounter
--- OUTSIDE RECORDS SUMMARY | 2024-11-27 20:33 | XMS_ITS | Encounter Summary ---
Author Organization [facility] Address [address] [place] [address] Care Team Providers Care Sleeve Setter Name Role Phone Kylie Oglesby Primary Care Provider [phone] Encounter Details Date Type Department Care Team [...] on filedocumented in this encounter Care Teams Sleeve Setter Relationship Specialty Start Date End Date Kylie Oglesby [address] [facility] [address] PCP - General Internal Medicine - Primary Care 12/15/19 documented as of this encounter
--- OUTSIDE RECORDS SUMMARY | 2024-11-27 20:34 | XMS_ITS | Encounter Summary ---
Author Organization [facility] Address [address] [place] [address] Care Team Providers Care Mission Planner Name Role Phone Kylie Oglesby Primary Care Provider [phone] Encounter Details Date Type Department Care Team (Late st Contact Info) Description 03/01/2020 Orders Only [facility] General Surgery - [facility] [address] [place] [address] Farheen Byers, RN [address] [place] [address] Social History Tobacco Use Types Packs/Day Years [...] on filedocumented in this encounter Care Teams Mission Planner Relationship Specialty Start Date End Date Kylie Oglesby [address] [place] [address] PCP - General Internal Medicine - Primary Care 12/15/19 documented as of this encounter
--- OUTSIDE RECORDS SUMMARY | 2024-11-27 20:34 | XMS_ITS | Encounter Summary ---
Author Organization [facility] Address [address] [place] [address] Care Team Providers Care Promotional Model Name Role Phone Kylie Oglesby Primary Care Provider [phone] Reason for Visit * Reason Onset Date Comments Appointment Related 12/15/2019 Encounter Details Date Type Department Care Team (Late st Contact Info) Description 12/15/2019 Telephone [facility] Urology - Medical Office Building [address] [facility], [address] [place], [place] [id number] Myah Garcia RN Appointment Related Social History [...] a report from a CT done at [facility] from 04/2019 and images pushed and a report and pathology from a Colonoscopy done in 's office, 2 years ago. (possibly from [place] [phone] and the fax number is [phone]. Pt has been seen by abel Ervin at [facility], not in this urology office at [facility]. Tc to Marielena to advise. documented in this encounter Plan of Treatment Not on file documented as of this encounter Visit Diagnoses Not on filedocumented in this encounter Care Teams Promotional Model Relationship Specialty Start Date End Date Kylie Oglesby [address] [place] [address] PCP - General Internal Medicine - Primary Care 12/15/19 documented as of this encounter
--- OUTSIDE RECORDS SUMMARY | 2024-11-27 20:34 | XMS_ITS | Encounter Summary ---
Author Organization [facility] Address [address] [place] [address] Care Team Providers Care Agile Test Lead Name Role Phone Kylie Oglesby Primary Care Provider Reason for Visit * Auth/Cert Specialty Diagnoses / Procedures Referred By Kavitha burgos Referred To Contact Diagnoses History of colon polyps History of colon polyps [Z86.010] Procedures COLONOSCOPY PROCEDURE-GI Referral ID Status Reason Start Date Expiration Date Visits Re quested Visits Authorized [id number] 1 1 Encounter Details Date Type Department Care Team (Late st Contact Info) Description 02/18/2020 9:45 EDT - 02/18/2020 12:53 EDT Hospital Encounter [facility] [address] [place], [place] [address] Sara Mendez MD [address] [facility], [address] [place] [address] Discharge Disposition: Home or Self [...] H&P Notes * Sara Menedz MD - 02/18/2020 1129 EDT Endoscopy Sedation for Procedure History & Physical Date: 02/18/2020 Time: 11:29 Location: [facility] GI/ENDO Planned Procedure: Procedure(s): COLONOSCOPY PROCEDURE-GI [...] ??Total sedation time was 26 ?? minutes. Sallis Bowel Prep Right Colon: 3 ? Transverse [...] 1136, Routine 1134 (Given - Provid er: rKissy Rowland RN)1136 (Given - Provider: Krissy Rowland [...] 02/18/2020 documented in this encounter Care Teams Agile Test Lead Relationship Specialty Start Date End Date Kylie Oglesby [address] [place] [address] PCP - General Internal Medicine - Primary Care 12/15/19 documented as of this encounter
--- OUTSIDE RECORDS SUMMARY | 2024-11-27 20:34 | XMS_ITS | Encounter Summary ---
Author Organization [facility] Address [address] [place] [address] Care Team Providers Care Architecture Technician Name Role Phone Kylie Oglesby Primary Care Provider [phone] Reason for Visit * Reason Onset Date Comments Patient Information Update 01/08/2020 Encounter Details Date Type Department Care Team (Late st Contact Info) Description 01/08/2020 Telephone [facility] General Surgery - [facility] [address] [place], [place] [id number] Sara Mendez MD [address] [facility], [address] [place] [address] Patient Information Update Social History [...] him I sent the Golytely to the [facility] in [place] and he will pick it up today. [...] on filedocumented in this encounter Care Teams Architecture Technician Relationship Specialty Start Date End Date Kylie Oglesby [address] [place] [address] PCP - General Internal Medicine - Primary Care 12/15/19 documented as of this encounter
--- OUTSIDE RECORDS SUMMARY | 2024-11-27 20:34 | XMS_ITS | Encounter Summary ---
Author Organization [facility] Address [address] [place] [address] Care Team Providers Care Social Organization Professor Name Role Phone Kylie Oglesby Primary Care Provider [phone] Encounter Details Date Type Department Care Team [...] on filedocumented in this encounter Care Teams Social Organization Professor Relationship Specialty Start Date End Date Kylie Oglesby [address] [place] [address] PCP - General Internal Medicine - Primary Care 12/15/19 documented as of this encounter
--- OUTSIDE RECORDS SUMMARY | 2024-11-27 20:34 | XMS_ITS | Encounter Summary ---
Author Organization [facility] Address [address] [place] [address] Care Team Providers Care Budget Counselor Name Role Phone Unknown, Provider MD Primary Care Provider Unava ilable Reason for Visit * (Routine) - Receiving Office to Obtain Authorization Specialty Diagnoses / Procedures Referred By Contdennis t Referred To Contact Procedures CT OUTSIDE IMAGES BODY Unknown, Provider, MD Referral ID Status Reason Start Date Expiration Date Visits Requested Visits Authorized [id number] Receiving Office to Obtain Authorization 12/16/2019 1 1 Encounter Details Date Type Department Care Team (Late st Contact Info) Description 05/07/2019 Hospital Encounter [facility] Radiology - [facility] [place] [address] [place] [address] Social History Tobacco Use Types Packs/Day Years [...] on filedocumented in this encounter Care Teams Budget Counselor Relationship Specialty Start Date End Date Unknown, Provider, PCP - General 10/15/16 12/14/19 documented as of this encounter
--- OUTSIDE RECORDS SUMMARY | 2024-11-27 20:34 | XMS_ITS | Encounter Summary ---
Author Organization [facility] Address [address] [place] [address] Care Team Providers Care Admissions Dean Name Role Phone Kylie Oglesby Primary Care Provider [phone] Encounter Details Date Type Department Care Team [...] on filedocumented in this encounter Care Teams Admissions Dean Relationship Specialty Start Date End Date Kylie Oglesby [address] [place] [address] PCP - General Internal Medicine - Primary Care 12/15/19 documented as of this encounter
--- OUTSIDE RECORDS SUMMARY | 2024-11-27 20:34 | XMS_ITS | Encounter Summary ---
Author Organization [facility] Address [address] [place] [address] Care Team Providers Care Cloth Cutter Name Role Phone Unknown, Provider Primary Care Provider Unava ilable Reason for Visit * Reason Onset Date Comments Labs Only 12/03/2019 Encounter Details Date Type Department Care Team (Late st Contact Info) Description 12/03/2019 Telephone [facility] Urology Clinic [address] [place] [address] Bahman Anderson, RN Labs Only Social History [...] on filedocumented in this encounter Care Teams Cloth Cutter Relationship Specialty Start Date End Date Unknown, Provider, PCP - General 10/15/16 12/14/19 documented as of this encounter
--- OUTSIDE RECORDS SUMMARY | 2024-11-27 20:34 | XMS_ITS | Encounter Summary ---
Author Organization [facility] Address [address] [place] [address] Care Team Providers Care Team Primary Care Physician Name Role Phone Unknown, Provider MD Primary Care Provider Unava ilable Reason for Referral * Consult (Routine) - Specialty Report Received Specialty Diagnoses / Procedures Referred By Contac t Referred To Contact General Surgery Diagnoses Pneumaturia Recurrent UTI Cathryn Monzon NP Phone: tel: fax: Sara Mendez MD Phone: tel: fax: Referral ID Status Reason Start Date Expiration Date Visits Requested Visits Authorized [id number] Specialty Report Received Specialty Services Required 12/01/2019 [...] Expiration Date V isits Requested Visits Authorized [id number] Specialty Report Received 12/01/2019 1 1 Reason for Visit * Reason Comments Recurrent Urinary Tract Infection New Patient Visit Encounter Details Date Type Department Care Team (Late st Contact Info) Description 12/01/2019 14:30 EST Initial consult [facility] [address] [place] [address] Cathryn Monzon, LEAK DETECTOR [address] [place] [address] Recurrent UTI (Primary Dx); UTI [...] this encounter Progress Notes * Cathryn Monzon, POOL PLAYER - 12/01/2019 1430 EST Subjective: Patient ID: [...] abd/pelvis when he was seen in the [facility] ED for back pain in 04/2019, and [...] see Dr. Mendez with colorectal surgery at [facility] for colonoscopy. His urine was sent for [...] 03/03/2020 added in this encounter Care Teams Team Primary Care Physician Relationship Specialty Start Date End Date Unknown, Provider, PCP - General 10/15/16 12/14/19 documented as of this encounter
--- OUTSIDE RECORDS SUMMARY | 2024-11-27 20:34 | XMS_ITS | Continuity of Care Document ---
Author Organization [place] - [facility], [facility] Address [address] [place] [address] Care Team Providers Care Editing Clerk Name Role Phone [facility] Sleep Medicine Assessment No assessment recorded. Plan of Treatment Reminders Order Date Submit Date Provider Last Modified By Organization Details Last Modified Time Details Appointments Follow Up 2024 11:00A Belem CAMARGO, Not available Not available Not available Follow Up 2024 08:40A Belem CAMARGO, Not available Not available Not available Lab protein electrop horesis, urine 2023 024 [facility] (Registration ), [address] [place] [address] [place], [address], 09/23/2024 09:47:30 BMP, serum or plasma [address] [facility], [address] [place] [address], [address], 09/23/2024 08:15:59 Referral None recorded . Procedures None recorded . Surgeries None recorded . Imaging None recorded . Medication Orders None recorded . Patient TargetsNo targets recorded. Patient InstructionsNo instructions recorded. Reason for Referral None Reported. Results Created Date Observation Date Name Description Value Unit Range Abnormal Flag Note LastModifiedBy Organization Detail LastModifiedTime 08/25/2008/25/2024 nerve condu ction study /EMG, lower extre mity (PROC ) No observ ation record ed. [email or web address] Adult Neurology - Main [address], [address], 08/26/2024 08:22:20 Result Notes None recorded. Problems Name Problem SNOMED Code Status Onset Date Resolution Date Notes Provider Name and Address Organization Details Recorded Time Divertic maryam of bhupendra bejarano 91307195 Active 2002 Problem Code: K57.90; Problem Code Type: ICD-10; MD Alirio [address], [facility] [address] , [facility] 4 11:26:06 Varicoce le 27179898 Active 2014 Problem Code: I86.1; Problem Code Type: ICD-10; MD Alirio [address], [facility] [address] , [facility] 4 11:26:06 Adult health examinat ion Active 2014 Problem Code: Z00.00; Problem Code Type: ICD-10; MD Alirio [address] Dr, [facility] [address] , [facility] 4 11:26:05 Urticari a 408792171 Completed 201503/15/2016 03/11/20 16 - Comments only - Adilia Gloria M.D. - resolved at this point. unclear etiology - could have been reaction to exposure vs. viral. if recurs, pt knows to take benadryl and zantac. f/u prn. Problem Code: L50.9; Problem Code Type: ICD-10; Not Available [facility] 3 04:35:33 Low back pain 844323030 Completed 201505/20/2016 05/10/20 16 - Comments only - Adilia Gloria M.D. - No red flags, although given age I would have a lower threshol d for imaging. tx with rest, ice/heat , ibup. If no better in 2 wks pt will call and we will xray and consider PT. Problem Code: M54.5; Problem Code Type: ICD-10; MD Alirio H[address]ERSON Dr, [facility] [address] , [facility] 4 11:26:05 Dysuria 36587078 Completed 201510/22/2016 09/21/20 16 - Comments only - Adilia Gloria M.D. - UA today. Positive for blood and leukocyt es. No nitrates . This is suggesti ve of urinary tract infectio n, although , review of previous urine cultures show that only about half the time does his urine actually grow signific ant bacteria . Therefor e, after discussi on with the patient, we have decided to wait for the results of this urine culture prior to treating with antibiot ics. In the meantime , he will treat pain with Tylenol and ibuprofe n and possibly Pyridium . He will push fluids. He will call if he has worsenin g symptoms or develops a fever over the weekend. I am referrin coleman him to urology because regardle ss of whether this is another UTI, he has had frequent urinary symptoms . Problem Code: R30.0; Problem Code Type: ICD-10; Not Available [facility] 3 04:35:33 Benign prostati c hyperpla mandy 160391785 Active 201812/30/19 19 - Comments only - Andrae Webster MD - It seems he is managing well on his tamsulos in. Plan: Continue that medicati on. Problem Code: N40.0; Problem Code Type: ICD-10; MD Alirio [address], [place], [address] , [facility] 4 11:26:05 Dizzines s and giddines s [id number] Completed 201801/17/2019 12/30/19 19 - Comments only - Andrae Webster MD - His acute episode has resolved . I did review exercise s that he can do to improve his balance. Follow as needed. Problem Code: R42; Problem Code Type: ICD-10; Not Available [facility] 3 04:35:33 Low back pain 828191534 Active 2018 Problem Code: M54.5; Problem Code Type: ICD-10; MD Alirio [address] Dr, [place] [address] , [facility] 4 11:26:05 Abnormal urine 421636712 Completed 201902/10/2020 Problem Code: R82.90; Problem Code Type: ICD-10; Not Available [facility] 3 04:35:33 Gastroin testinal tract excision Active 2019 Problem Code: Z90.49; Problem Code Type: ICD-10; MD Alirio HENDERSON Dr, [address] 4 11:26:05 Prediabe lucy 858050189 Active 2020 Problem Code: R73.03; Problem Code Type: ICD-10; MD Alirio HENDERSON Dr, [address] 4 11:26:06 Onychomy cosis due to dermatop hyte 857846107 Active 2021 Problem Code: B35.1; Problem Code Type: ICD-10; MD Alirio HENDERSON Dr, [address] 4 11:26:05 Polyneur opathy 40997814 Active 2021 Problem Code: G62.9; Problem Code Type: ICD-10; MD Alirio HENDERSON Dr, [address] 4 11:26:05 Open wound of toe(s) with damage to nail 489756140 Completed 202110/31/2022 10/24/20 22 - Comments only - Natasha Calvo MD - Toenail removed and sterile bandage applied. Post procedur e wound instruct ions reviewed includin g Epson salts twice daily for the next few days. Reviewed signs and symptoms of infectio n that would require reevalua tion. Problem Code: S91.201A ; Problem Code Type: ICD-10; Not Available [facility] 3 04:35:34 Pre-surg patricia evaluati on Completed 201603/24/2021 Problem Code: Z01.818; Problem Code Type: ICD-10; Not Available [facility] 3 04:35:37 Localize d eruption of skin 856731773 Completed 201906/27/2020 Problem Code: R21; Problem Code Type: ICD-10; Not Available [facility] 3 04:35:38 Impaired intestin al carbohyd rate absorpti on 57594334 Completed 201805/11/2019 Problem Code: E74.39; Problem Code Type: ICD-10; Not Available [facility] 3 04:35:38 Cystitis 51181243 Completed 201804/01/2020 Problem Code: N30.90; Problem Code Type: ICD-10; Not Available [facility] 3 04:35:38 Ex-smoke r 4842807 Completed 199407/24/2023 Not Available [facility] 3 04:35:38 Sciatica 38015728 Completed 201407/24/2023 Not Available [facility] 3 04:35:38 Hyperlip idemia 27323053 Completed 201903/24/2021 Problem Code: E78.5; Problem Code Type: ICD-10; Not Available [facility] 3 04:35:38 Increase d frequenc y of urinatio n 232854722 Completed 201903/24/2021 Problem Code: R35.0; Problem Code Type: ICD-10; Not Available [facility] 3 04:35:38 Urinary tract infectio us disease 36719746 Completed 201412/29/2018 Problem Code: N39.0; Problem Code Type: ICD-10; Not Available [facility] 3 04:35:39 Urinary tract infectio us disease 16564108 Completed 201512/29/2018 Problem Code: N39.0; Problem Code Type: ICD-10; Not Available [facility] 3 04:35:39 Blood glucose outside referenc e range 275962252 Completed 201803/24/2021 Problem Code: R73.09; Problem Code Type: ICD-10; Not Available [facility] 3 04:35:40 Divertic ular disease 346230501 Completed 200207/24/2023 Not Available [facility] 3 04:35:40 Nocturia 428908497 Completed 201512/29/2018 Problem Code: R35.1; Problem Code Type: ICD-10; Not Available [facility] 3 04:35:40 Varicose veins of 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 4 11:26:40 Cobalami n deficien cy 602186120 Active [address], [place], [address] , [facility]. 4 11:13:36 Erythroc ytosis 334376299 Active [address], [place], [address] , [facility] 4 11:01:15 Acute bronchit is 87120961 Active [address], [place], [address] , [facility]. 4 14:01:07 Snoring 93875597 Active 2023 AMINA GIFFORD, [facility] 4 16:41:36 Restless legs 37816265 Active 2023 MARY ANN LEVY MA [facility], [facility] 4 16:42:42 Obstruct alexandra sleep apnea syndrome 56936115 Active 2023 DILLON CAMARGO MD [facility] [address], [place], [address] [facility] 4 10:39:50 Problem Notes None recorded. Medical Equipment None Reported. Allergies Allergen ID Allergen Name Allergen Category Reaction Reaction Severity Criticality Documentation Date Start Date Code Code System Note Provider Name and Address Organization Details Recorded Time 90271 prednison e medicatio n Not available Not available Not available 09/06/20232014 8640 RxNorm Not Available [facility] 3 16:22:06 Medications Name Sig Start Date Stop Date Status Note LastModified by Organization Details LastModified Time cyclobenz aprine 10 mg tablet Take 1 tab by mouth every 8 hrs as needed 06/26 completed Not Available Not Available Not Available nitrofura ntoin macrocrys david 50 mg capsule Taking 50 mg daily 03/11 completed per urology Not Available Not Available Not Available gabapenti n 600 mg tablet TAKE 1 TABLET BY MOUTH AT BEDTIME 08/26 completed Not Available Not Available Not Available Keflex 500 mg capsule Take 1 tab by mouth three times daily 11/27 completed Not Available Not Available Not Available Pyridium 200 mg tablet 1TAB three times daily 12/11 completed Not Available Not Available Not Available Keppra 250 mg tablet Take 1 tab by mouth daily 01/12 completed Not Available Not Available Not Available cyanocoba yahaira (vit B-12) 1,000 mcg tablet Take 1 tablet every day by oral route. active Not Available Not Available No t Available ciproflox acin 250 mg tablet Take 1 tab by mouth twice daily 01/09 completed Not Available Not Available Not Available sulfameth oxazole 800 mg-trimet hoprim 160 mg tablet 1 tab bid for 7 days 09/21 completed Not Available Not Available Not Available triamcino lone acetonide 0.1 % topical cream Apply to skin twice a day 03/24 completed Not Available Not Available Not Available tamsulosi n 0.4 mg capsule Take 1 tab by mouth daily at bedtime [address] Vasquez per pt Not Available Not Available Not Available cyanocoba yahaira (vit B-12) 1,000 mcg/mL injection solution INJECT 1 MILLILIT ER (1,000 MCG) BY SUBCUTAN EOUS ROUTE every 2 weeks 05/25 completed Not Available Not Available Not Available Cipro 500 mg tablet 1 tab po bid 03/11 completed Not Available Not Available Not Available triamcino lone acetonide 0.1 % topical ointment APPLY A THIN LAYER TO THE AFFECTED AREA(S) BY TOPICAL ROUTE 2 TIMES PER DAY 2024 active Not Available Not Available Not Avai lable gabapenti n 300 mg capsule TAKE 2 CAPSULES BY MOUTH TWICE DAILY 05/25 completed Not Available Not Available Not Available gabapenti n 100 mg capsule Take 3 capsules twice a day by oral route. 01/12 completed Not Available Not Available Not Available docusate sodium 100 mg tablet Take 1 tablet by mouth once a day 2019 active Not Available Not Available Not Avai lable pregabali n 50 mg capsule TAKE 1 CAPSULE BY MOUTH THREE TIMES A DAY 11/27 completed Not Available Not Available Not Available Bactrim DS 1TAB twice daily 04/20 completed Not Available Not Available Not Available Afrin (oxymetaz oline) 0.05 % nasal mist Take by nasal route. 08/26 completed Not Available Not Available Not Available Vitals None Recorded Social History Question Answer Notes LastModified by Organizat ion Details LastModified Time Tobacco Smoking Status Former Smoker KIA DAVIS RN null, [place] - [facility]. 11/15/2023 11:02:28 When Did You Quit Smoking? 17+yearssin moi mahmood [email or web address] Information not available 01/24/2024 Would You Say That, In General, Your Health Is Good [email or web address] Information not available 01/24/2024 How Often Does Anyone, Including Family, Physically Hurt You? Never [email or web address] Information not available 01/24/2024 How Often Does Anyone, Including Family, Insult Or Talk Down To You? Never [email or web address] Information no t available 01/24/2024 How Often Does Anyone, Including Family, Threaten You With Harm? Never [email or web address] Information not available 01/24/2024 How Often Does Anyone, Including Family, Scream Or Curse At You? Never [email or web address] Information not available 01/24/2024 Within The Past 12 Months, You Worried That Your Food Would Run Out Before You Got Money To Buy More. Never True [email or web address] Information n ot available 01/24/2024 Within The Past 12 Months, The Food You Bought Just Didn't Last And You Didn't Have Money To Get More. Never True [email or web address] Information not available 01/24/2024 How Hard Is It For You To Pay For The Very Basics Like Food, Housing, Medical Care, And Heating? Would You Say It Is: Not Hard At All [email or web address] Information not available 01/24/2024 In The Past 12 Months, Has Lack Of Reliable Transportation Kept You From Medical Appointments, Meetings, Work Or From Getting Things Needed For Daily Living? No Information not available 01/24/2024 What Is Your Housing Situation Today? I Have Housing. [email or web address] Information not available 01/24/2024 How Often In The Past Year Have You Used Marijuana (including Smoking, Vaping, Dabbing, Or Edibles)? Never [email or web address] Information not available 01/24/2024 How Often In The Past Year Have You Used Prescription Medications That Were Not Prescribed To You? Never Information not available 01/24/2024 How Often In The Past Year Have You Taken Your Own Prescription Medication More Than The Way It Was Prescribed Or For Different Reasons Than Its Intended Purpose? Never [email or web address] Information not available 01/24/2024 How Often In The Past Year Have You Used Other Drugs (for Example, Heroin, Cocaine, Meth, Salvia, Inhalants)? Never [email or web address] Information not available 01/24/2024 Have You Ever Used IV Drugs? No [email or web address] Information not available 01/24/2024 Date Of Most Recent SBINS 01/24/2024 [email or web address] Information not available 01/24/2024 What Was The Date Of Your Most Recent Tobacco Screening? 08/26/2024 [email or web address] Information n ot available 08/26/2024 What Is Your Current Pack Years? 30ormorepac liss [email or web address] Information not available 11/15/2023 Has Tobacco Cessation Counseling Been Provided? No [email or web address] Information not available 11/15/2023 Do You Or Have You Ever Used Any Other Forms Of Tobacco Or Nicotine? No [email or web address] Information not available 08/26/2024 Sex: Male Functional Status None recorded. Mental Status None recorded. Family History Nothing Reported Notes:*Problem: Mother: , age 89, old age Father: age ? cause unknown Sisters: none Brothers: none Children: none Medical History No medical history recorded. Immunizations Vaccine Type Date Status Note Provider Nam e and Address Organization Details Recorded Time Tdap 9 completed Not Available [facility] 09/06/2023 04:21:38 Pneumococcal conjugate PCV 13 6 completed Not Available [facility] 09/06/2023 04:21:38 Influenza, high-dose, trivalent, PF 1 completed Not Available [facility] 09/06/2023 04:21:39 Influenza, high-dose, trivalent, PF 8 completed Not Available [facility] 09/06/2023 04:21:39 Influenza, high-dose, trivalent, PF 6 completed Not Available [facility] 09/06/2023 04:21:39 Influenza, high-dose, trivalent, PF 5 completed Not Available [facility] 09/06/2023 04:21:39 Influenza, adjuvanted, trivalent, PF 7 completed Not Available [facility] 09/06/2023 04:21:39 Influenza, high-dose, quadrivalent, PF 2 completed Not Available [facility] 09/06/2023 04:21:40 COVID-19, mRNA, LNP-S, PF, 100 mcg/0.5mL dose or 50 mcg/0.25mL dose 1 completed Not Available [facility] 09/06/2023 04:21:40 COVID-19, mRNA, LNP-S, PF, 100 mcg/0.5mL dose or 50 mcg/0.25mL dose 1 completed Not Available [facility] 09/06/2023 04:21:40 COVID-19, mRNA, LNP-S, PF, 100 mcg/0.5mL dose or 50 mcg/0.25mL dose 1 completed Not Available [facility] 09/06/2023 04:21:41 COVID-19, mRNA, LNP-S, bivalent, PF, 30 mcg/0.3 mL dose 2 completed Not Available [facility] 09/06/2023 04:21:41 pneumococcal polysaccharide PPV23 8 completed Not Available [facility] 09/06/2023 04:21:41 influenza, unspecified formulation 9 completed Not Available [facility] 09/06/2023 04:21:42 COVID-19, mRNA, LNP-S, PF, chuyita-sucrose, 30 mcg/0.3 mL 4 completed AMINA Alvarez, [facility] 08/17/2024 08:12:56 Influenza, high-dose, trivalent, PF 4 completed AMINA Alvarez [facility] 08/17/2024 08:14:26 Influenza, high-dose, quadrivalent, PF 3 completed Not Available [facility] 11/08/2023 05:31:43 COVID-19, mRNA, LNP-S, PF, chuyita-sucrose, 30 mcg/0.3 mL 3 completed Not Available [facility] 11/08/2023 05:31:43 Past Encounters Encounter ID Performer Location Encounter Start Date Encounter Closed Date Diagnosis/Indication Diagnosis SNOMED-CT Code Diagnosis ICD10 Code Diagnosis Note [id number] TRISH DELANEY LPN [address] [address] 08/19/2024 10:53:02 08/19/2024 11:13:50 Erythrocytosis 251505960 D75.1 [id number] Lata Mckeon [address] [address] 08/26/2024 08:49:05 08/26/2024 09:42:47 Polyneuropathy 27848588 G62.9 b/l LE peripheral neuropathy .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 may be due to combinatio n of prediabete s, hx of heavy alcohol use, b12 deficiency , b12 now replete.co ntinue to limit alcoholrev iewed neurology note - I don't believe he's had an SPEP or free light chains, will order plus copper and vit Egabapenti n did not helpwill try switching to lyricacont inue going to the gym for strengthen inghe agrees to also go for PT Cobalamin deficiency 190 865443 E53.8 b12 level improved. Continue oral b12 1000 mcg daily Erythrocytosis 290331970 D75.1 mild, chronic, likely r/t MEAGAN. stable. recheck 6 mo Obstructiv e sleep apnea syndrome 70572224 G47.33 f/u with sleep center to try cpap as a next step [id number] TRISH DELANEY LPN [address] [address] 09/16/2024 10:49:51 09/16/2024 12:33:01 Polyneuropathy 10586713 G62.9 Health Concerns Section Related Observation LastModified by Organization Detai ls LastModified Time None Recorded Concern Status LastModified by Organization Details LastModified Time None Recorded Payers Encounter Date Sequence Insurance Name Policy Number Policy Charlton Covered Member ID Charlton Member ID Guarantor Name 09/16/2024 2 [place] [facility] PLAN F (MEDICARE SUPPLEMENT) [id number] Jasbir Kate [id number] Jasbir Kate 09/16/2024 1 [place] [employer] Jasbir Kate [id number] Jasbir Kate
--- OUTSIDE RECORDS SUMMARY | 2024-11-27 20:34 | XMS_ITS | Encounter Summary ---
Author Organization [facility] Address [address] [place] [address] Care Team Providers Care Livestock Laborer Name Role Phone Kylie Oglesby Primary Care Provider [phone] Reason for Visit * Reason Comments New Patient Visit colovesicu. fistula * Consult (Routine) - Specialty Report Received Specialty Diagnoses / Procedures Referred By Kavitha burgos Referred To Contact General Surgery Diagnoses Pneumaturia Recurrent UTI Cathryn Monzon, MANOJ Phone: tel: fax: Sara Mendez MD Phone: tel: fax: Referral ID Status Reason Start Date Expiration Date Visits Requested Visits Authorized [id number] Specialty Report Received Specialty Services Required 12/01/2019 1 1 Encounter Details Date Type Department Care Team (Late st Contact Info) Description 01/05/2020 10:00 EDT Office Visit [facility] General Surgery - [facility] [address], [place] [address] Sara Mendez MD [address] [place] [address], [address] [place] [address] Pneumaturia (Primary Dx) Social History [...] been seen by the urology department at [facility] with Cathryn Monzon. She did a [...] 25 years ago but has about a 15-hymn-aqyp history. drinks wine daily. 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 He goes to the gym 3 times a week and either sits on the bike or the elliptical machine. He denies any chest pain with exertion, but does have some shortness of breath ifhe walks out 2 flights of stairs Colonoscopy was about 2 to 3 years ago at [facility]. He states it was normal. [...] urethra documented in this encounter Care Teams Livestock Laborer Relationship Specialty Start Date End Date Kylie Oglesby [address] [place] [address] PCP - General Internal Medicine - Primary Care 12/15/19 documented as of this encounter
--- OUTSIDE RECORDS SUMMARY | 2024-11-27 20:34 | XMS_ITS | Encounter Summary ---
Author Organization [facility] Address [address] [place] [address] Care Team Providers Care Rock Duster Name Role Phone Unknown, Provider Primary Care Provider Unava ilable Encounter Details Date Type Department Care Team (Late st Contact Info) Description 12/14/2019 Results Only [facility] Urology - Medical Office Building [address] [facility], [address] [place], [place] [address] Cathryn Monzon NP [address] [place] [phone] Social History Tobacco Use Types Packs/Day [...] PANEL (BMP) (12/14/2019 15:17 EST) [facility] - [facility] 16 10 - 26 mg/dL 12/14/2019 15:45 EST [facility] CALCIUM - [facility] 9.5 8.5 - 10.5 mg/dL 12/14/2019 15:45 EST [facility] Chloride 104 96 - 110 mmol/L 12/14/2019 15:45 [facility] CO2 Total 26 21 - 32 mEq/L 12/14/2019 15:45 [facility] CREATININE 0.83 0.66 - 1.25 mg/dL 12/14/2019 15:45 [facility] eGFR >60 12/14/2019 15:45 [facility] Comment: Chronic renal impairment is defined as GFR <60 Multiply result by 1.210 for patients. Anion Gap 9 0 - 18 12/14/2019 15:45 [facility] GLUCOSE - [facility] 81 70 - 100 mg/dL 12/14/2019 15:45 [facility] Potassium 4.5 3.5 - 5.0 mEq/L 12/14/2019 15:45 [facility] Sodium 139 136 - 145 mEq/L 12/14/2019 15:45 [facility] 12/14/2019 15:1 7 EST 12/14/2019 15:17 EST us Cathryn Monzon DIRECTOR OF RESIDENCE LIFE CHEMISTRY & BLOOD GAS ORDER ERNEE Final Result [facility] documented in this encounter Visit Diagnoses Not on filedocumented in this encounter Care Teams Rock Duster Relationship Specialty Start Date End Date Unknown, Provider, PCP - General 10/15/16 12/14/19 documented as of this encounter
--- OUTSIDE RECORDS SUMMARY | 2024-11-27 20:34 | XMS_ITS | Encounter Summary ---
Author Organization [facility] Address [address] [place] [address] Care Team Providers Care Legal Executive Assistant Name Role Phone Kylie Oglesby Primary Care Provider [phone] Reason for Visit * Reason Onset Date Comments COVID-19 03/14/2020 PATIENT IS MAEGAN Ramon PREPROCEDURAL TEST DONE AT [facility] 03/14/20 PATIENT WAS GIVEN [phone] REG LINE FOR GABRIELLA AND IS CALLING TO GET REGISTERED FOR TESTING TODAY Encounter Details Date Type Department Care Team (Late st Contact Info) Description 03/14/2020 Telephone [facility] [place] [facility] [address] [place] [address] Sara Mendez MD [address] [facility] 5 [place] [address] COVID-19 (PATIENT IS HAVING PREPROCEDURAL TEST DONE AT [facility] 03/14/20 PATIENT WAS GIVEN [phone] REG LINE FOR GABRIELLA AND IS CALLING TO GET REGISTERED FOR TESTING TODAY ) Social History Tobacco Use Types Packs/Day Years Used Date Smoking Tobacco: Former Cigarettes 2 30 1 - 1994 Smokeless Tobacco: Never [...] PATIENT IS HAVING PREPROCEDURAL TEST DONE AT [facility] 03/14/20 PATIENT WAS GIVEN [phone] REG LINE FOR [facility] AND IS CALLING TO GET REGISTERED FOR TESTING TODAY documented in this encounter Plan of Treatment Not on file documented as of this encounter Visit Diagnoses Not on filedocumented in this encounter Care Teams Legal Executive Assistant Relationship Specialty Start Date End Date Kylie Oglesby [address] [place] [address] PCP - General Internal Medicine - Primary Care 12/15/19 documented as of this encounter
--- OUTSIDE RECORDS SUMMARY | 2024-11-27 20:34 | XMS_ITS | Encounter Summary ---
Author Organization [facility] Address [address] [place] [address] Care Team Providers Care Pocket And Pulley Machine Operator Name Role Phone Kylie Oglesby Primary Care Provider [phone] Reason for Visit * Reason Comments Post-OP Follow Up Encounter Details Date Type Department Care Team (Late st Contact Info) Description 03/01/2020 14:00 EDT Office Visit [facility] General Surgery - [facility] [address] [place], [place] [address] Sara Mendez MD 111 [facility], Level [address] [place] [address] Diverticulitis of large intestine with [...] by the urology department at [facility] with Cathryn Monzon. She did a [...] 25 years ago but has about a 03-nzme-heyc history. drinks wine daily. 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 He goes to the gym 3 times a week and either sits on the bike or the elliptical machine. He denies any chest pain with exertion, but does have some shortness of breath ifhe walks out 2 flights of stairs ?? Colonoscopy was about 2 to 3 years ago at [facility]. He states it was normal. He [...] Barriers: None Outcomes: verbalized understanding Signature: SERGEI BYESR RN I reviewed full prep SSI with Jasbir. I will send the prescriptions to the [facility] in [place]. I was supervised by Dr Mendez who was present and immediately available in the office suite. SERGEI BYERS RN 03/01/2020 15:31 documented in this encounter Plan of Treatment Not on file documented as of this encounter Results * (ABNORMAL) COMPLETE BLOOD COUNT (03/01/2020 15:57 EDT) WBC 10.53(H) 4.00 - 10.40 K/cmm 03/01/2020 16:42 EDT [facility] RBC 5.57 4.36 - 5.78 M/cmm 03/01/2020 16:42 [facility] Hemoglobin 18.2(H) 13.8 - 17.3 gm/dL 03/01/2020 16:42 [facility] HCT 53.6(H) 39.5 - 50.2 % 03/01/2020 16:42 [facility] MCV 96(H) 81 - 95 fl 03/01/2020 16:42 [facility] MCH 32.7 27.6 - 33.0 pg 03/01/2020 16:42 [facility] MCHC 34.0 32.8 - 36.4 gm/dL 03/01/2020 16:42 EDT [facility] RDW-CV 12.5 <14.2 % 03/01/2020 16:42 EDT [facility] RDW-SD 44.4 <46.0 fl 03/01/2020 16:42 EDT [facility] PLT 255 141 - 377 K/cmm 03/01/2020 16:42 EDT [facility] MPV 10.4 9.5 - 12.7 fl 03/01/2020 16:42 EDT [facility] Blood VENOUS BLOOD / Unknown Venipuncture / Unknown 03/01/2020 15:57 EDT 03/01/2020 16:26 EDT us Sara Mendez MD HEMATOLOGY & PF4 ORDERABLES Fi nal Result [facility] [address] [place] [address] documented in this encounter Visit Diagnoses Diagnosis Diverticulitis of large intestine with abscess, unspecified bleeding status- Primary documented in this encounter Orders Lab Orders Without Results Count Last Ordered D ate First Ordered Date BASIC METABOLIC PANEL (BMP) 1 03/01/2020 documented in this encounter Care Teams Pocket And Pulley Machine Operator Relationship Specialty Start Date End Date Kylie Oglesby [address] [place] [address] PCP - General Internal Medicine - Primary Care 12/15/19 documented as of this encounter
--- OUTSIDE RECORDS SUMMARY | 2024-11-27 20:34 | XMS_ITS | Encounter Summary ---
Author Organization [facility] Address [address] [place] [address] Care Team Providers Care Concrete Float Maker Name Role Phone Unknown, Provider Primary [...] on filedocumented in this encounter Care Teams Concrete Float Maker Relationship Specialty Start Date End Date Unknown, Provider, PCP - General 10/15/16 12/14/19 documented as of this encounter
--- OUTSIDE RECORDS SUMMARY | 2024-11-27 20:34 | XMS_ITS | Encounter Summary ---
Author Organization [facility] Address [address] [place] [address] Care Team Providers Care Campaign Advisor Name Role Phone Unknown, Provider MD Primary Care Provider Unava ilable Reason for Visit * (Routine) - Receiving Office to Obtain Authorization Specialty Diagnoses / Procedures Referred By Contac t Referred To Contact Procedures CT OUTSIDE IMAGES BODY Unknown, Provider, MD Referral ID Status Reason Start Date Expiration Date Visits Requested Visits Authorized [id number] Receiving Office to Obtain Authorization 12/31/2019 1 1 Encounter Details Date Type Department Care Team (Latest Contact Info) Description 12/14/2019 - 12/14/2019 23:59 EST Hospital Encounter [facility] Radiology - Main [place] [address] [place] [address] Discharge Disposition: Home or Self Care Social [...] on filedocumented in this encounter Care Teams Campaign Advisor Relationship Specialty Start Date End Date Unknown, Provider, PCP - General 10/15/16 12/14/19 documented as of this encounter
--- OUTSIDE RECORDS SUMMARY | 2024-11-27 20:34 | XMS_ITS | Encounter Summary ---
Author Organization [facility] Address [address] [place] [address] Care Team Providers Care Head Cashier Name Role Phone Kylie Oglesby Primary Care Provider [phone] Reason for Visit * Reason Onset Date Comments Labs Only 03/14/2020 Encounter Details Date Type Department Care Team (Late st Contact Info) Description 03/14/2020 Telephone [facility] General Surgery - [facility] [address] [place], [place] [id number] Sara Mendez MD 111 [facility], [address] [place] [address] Labs Only Social History Tobacco [...] he had the Covid-19 test today at [facility] today at 1 pm. documented in this encounter Plan of Treatment Not on file documented as of this encounter Visit Diagnoses Not on filedocumented in this encounter Care Teams Head Cashier Relationship Specialty Start Date End Date Kylie Oglesby [address] [place] [address] PCP - General Internal Medicine - Primary Care 12/15/19 documented as of this encounter
--- OUTSIDE RECORDS SUMMARY | 2024-11-27 20:34 | XMS_ITS | Encounter Summary ---
Author Organization [facility] Address [address] [place] [address] Care Team Providers Care Electronic Bench Technician Name Role Phone Kylie Oglesby Primary Care Provider [phone] Encounter Details Date Type Department Care Team (Late st Contact Info) Description 01/05/2020 Orders Only [facility] General Surgery - [facility] [address] [place] [address] Farheen Byers, RN [address] [place] [address] Social History Tobacco Use Types Packs/Day Years [...] on filedocumented in this encounter Care Teams Electronic Bench Technician Relationship Specialty Start Date End Date Kylie Oglesby [address] [place] [address] PCP - General Internal Medicine - Primary Care 12/15/19 documented as of this encounter
--- OUTSIDE RECORDS SUMMARY | 2024-11-27 20:34 | XMS_ITS | Encounter Summary ---
Author Organization [facility] Address [address] [place] [address] Care Team Providers Care Pharmacy General Manager Name Role Phone Kylie Oglesby Primary Care Provider [phone] Encounter Details Date Type Department Care Team (Late st Contact Info) Description 03/01/2020 16:00 EDT Phlebotomy Only [facility] 2 Phlebotomy [address] [place], [place] [address] Milieu Coordinator, Acc Phlebotomy Frequent UTI; Diverticulitis of large [...] 4.00 - 10.40 K/cmm 03/01/2020 16:42 EDT [facility] RBC 5.57 4.36 - 5.78 M/cmm 03/01/2020 16:42 EDT [facility] Hemoglobin 18.2(H) 13.8 - 17.3 gm/dL 03/01/2020 16:42 T [facility] HCT 53.6(H) 39.5 - 50.2 % 03/01/2020 16:42 [facility] MCV 96(H) 81 - 95 fl 03/01/2020 16:42 [facility] MCH 32.7 27.6 - 33.0 pg 03/01/2020 16:42 T [facility] MCHC 34.0 32.8 - 36.4 gm/dL 03/01/2020 16:42 [facility] RDW-CV 12.5 <14.2 % 03/01/2020 16:42 [facility] RDW-SD 44.4 <46.0 fl 03/01/2020 16:42 [facility] PLT 255 141 - 377 K/cmm 03/01/2020 16:42 [facility] MPV 10.4 9.5 - 12.7 fl 03/01/2020 16:42 [facility] Blood VENOUS BLOOD / Unknown Venipuncture / Unknown 03/01/2020 15:57 EDT 03/01/2020 16:26 EDT Sara Mendez MD HEMATOLOGY & PF4 ORDERABLES Fi nal Result [facility] [address] [place] [address] * BASIC METABOLIC PANEL (BMP) (03/01/2020 15:57 EDT) Sodium 140 136 - 145 mEq/L 03/01/2020 16:59 EDT [facility] Potassium 4.5 3.5 - 5.0 mEq/L 03/01/2020 16:59 T [facility] Chloride 104 96 - 110 mEq/L 03/01/2020 16:59 T [facility] CO2 Total 27 22 - 32 mEq/L 03/01/2020 16:59 [facility] Glucose 86 70 - 100 mg/dL 03/01/2020 16:59 [facility] Calcium 9.9 8.5 - 10.5 mg/dL 03/01/2020 16:59 [facility] Calculated Calcium 9.6 8.5 - 10.5 mg/dL 03/01/2020 16:59 [facility] BUN 15 10 - 26 mg/dL 03/01/2020 16:59 [facility] Creatinine 0.85 0.66 - 1.25 mg/dL 03/01/2020 16:59 [facility] eGFR 83 >60 mL/min/1.7 3m2 03/01/2020 16:59 [facility] Comment:eGFR calculated ernesto cee CKD-EPI equation for non- Americans. Multiply eGFR by 1.16 for patients. Blood VENOUS BLOOD / Unknown Venipuncture / Unknown 03/01/2020 15:57 EDT 03/01/2020 16:26 EDT us Catrhyn Monzon BIOCHEMISTRY SPECIALIST CHEMISTRY & BLOOD GAS ORDER RENEE Final Result [facility] [address] [place] [address] documented in this encounter Visit Diagnoses Diagnosis Frequent UTI Urinary tract infection, site not specified Diverticulitis of large intestine with abscess, unspecified bleeding status documented in this encounter Care Teams Pharmacy General Manager Relationship Specialty Start Date End Date Kylie Oglesby [address] [place] [address] PCP - General Internal Medicine - Primary Care 12/15/19 documented as of this encounter
--- OUTSIDE RECORDS SUMMARY | 2024-11-27 20:34 | XMS_ITS | Encounter Summary ---
Author Organization [facility] Address [address] [place] [address] Care Team Providers Care Tangible Personal Property Appraiser Name Role Phone Kylie Oglesby Primary Care Provider [phone] Reason for Visit * Auth/Cert Specialty Diagnoses / Procedures Referred By Kavitha burgos Referred To Contact Diagnoses Colovesical fistula Procedures NE LAP,SURG,COLECTOMY, PARTIAL, W/ANAST Diagnostic laparoscopy with possible sigmoid colectomy Referral ID Status Reason Start Date Expiration Date Visits Re quested Visits Authorized [id number] 1 1 Encounter Details Date Type Department Care Team (Late st Contact Info) Description 03/17/2020 8:36 EDT Anesthesia Event [facility] OR [address] [place], [place] [address] James Vanessa MD 111 [facility], [facility] 2 [place] [address] Anesthesia Record Procedure Summary Procedure [...] by MD; 1; Superior, Midline; Abdomen; 19 Italian (lalit); 03/23/20; 1751 03/17/20 0000 by Valeria [...] diverticulitis ??? Frequent UTI started having issues [id number], never been hospitalized for uti ??? History [...] instruct them to call us back at [phone] to report symptoms If the patient answers [...] Staff Patient location during procedure: OR Performed: resident/BUNG DROPPER/AA Indications and Patient Condition Indications for airway management: anesthesia and airway protection Sedation level: GA Preoxygenated: yes Patient position: sniffing Ventilation assessment: 0 - not attempted Final Airway Details Final airway type: endotracheal airway Successful airway: ETT Cuffed: yes Successful intubation technique: video laryngoscopy [place] Blade: Ines Blade size: #3 ETT size [...] diverticulitis ??? Frequent UTI started having issues 1060-4053, never been hospitalized for uti ??? History [...] instruct them to call us back at [phone] to report symptoms If the patient answers [...] EDT documented in this encounter Results * NE AN ELECTIVE ENDOTRACHEAL AIRWAY (03/17/2020 9:37 EDT) Narrative Vita Middleton AA - 03/17/2020 9:37 EDT Vita Middleton AA ? 03/17/2020 ??9:38 Airway Date/Time: 03/17/2020 9:03 Urgency: elective Airway not difficult General Information and Staff Patient location during procedure: OR Performed: resident/BUNG DROPPER/AA Indications and Patient Condition Indications for airway management: anesthesia and airway protection Sedation level: GA Preoxygenated: yes Patient position: sniffing Ventilation assessment: 0 - not attempted Final Airway Details Final airway type: endotracheal airway Successful airway: ETT Cuffed: yes Successful intubation technique: video laryngoscopy [place] Blade: Ines Blade size: #3 ETT size [...] Starting on Tuyet 03/17/20 at 0849, Until Tyuet 03/17/20 at 1605, Routine, Anesthesia Intraprocedure Given [...] succinylcholine (ANECTINE) injection intravenous, PRN, Starting on Utyet 03/17/20 at 0904, Until Tuyet 03/17/20 at 1605, Routine, Anesthesia Intraprocedure Given 03/17/2020 9:04 EDT 120 mg sugammadex (BRIDION) injection intravenous, PRN, Starting on Tuyet 03/17/20 at 1137, Until Tuyet 03/17/20 at 1605, Routine, Anesthesia Intraprocedure Given 03/17/2020 11:37 EDT 200 mg documented in this encounter Care Teams Tangible Personal Property Appraiser Relationship Specialty Start Date End Date Kylie Oglesby [address] [place] [address] PCP - General Internal Medicine - Primary Care 12/15/19 documented as of this encounter
--- OUTSIDE RECORDS SUMMARY | 2024-11-27 20:34 | XMS_ITS | Encounter Summary ---
Author Organization [facility] Address [address] [place] [address] Care Team Providers Care Safety And Skill Based Pay Manager Name Role Phone Kylie Oglesby Primary Care Provider [phone] Encounter Details Date Type Department Care Team [...] on filedocumented in this encounter Care Teams Safety And Skill Based Pay Manager Relationship Specialty Start Date End Date Kylie Oglesby [address] [place] [address] PCP - General Internal Medicine - Primary Care 12/15/19 documented as of this encounter
--- OUTSIDE RECORDS SUMMARY | 2024-11-27 20:34 | XMS_ITS | Encounter Summary ---
Author Organization [facility] Address [address] [place] [address] Care Team Providers Care Caisson Worker Name Role Phone Unknown, Provider Primary Care Provider Unava ilable Encounter Details Date Type Department Care Team (Late st Contact Info) Description 10/15/2016 Results Only [facility] [phone] Thania Vasquez MD [address] [place] [address] [phone] Social History Tobacco Use Types Packs/Day Years [...] ? TRENTON RUBIO ? Accession #: ? [id number] : ? 1940 (Age: 76) ??M ?Collect [...] cellular enhancement technique. ? End of Report [facility] 10/15/2016 10/16/2016 8:4 3 EST us Thania Vasquez MD PATHOLOGY ORDERABLES Final Result [facility] [address] [place] [address] documented in this encounter Visit Diagnoses Not on filedocumented in this encounter Care Teams Caisson Worker Relationship Specialty Start Date End Date Unknown, Provider, PCP - General 10/15/16 12/14/19 documented as of this encounter
--- OUTSIDE RECORDS SUMMARY | 2024-11-27 20:34 | XMS_ITS | Encounter Summary ---
Author Organization [facility] Address [address] [place] [address] Care Team Providers Care Bistro Server Name Role Phone Kylie Oglesby Primary Care Provider [phone] Encounter Details Date Type Department Care Team [...] on filedocumented in this encounter Care Teams Bistro Server Relationship Specialty Start Date End Date Kylie Oglesby [address] [place] [address] PCP - General Internal Medicine - Primary Care 12/15/19 documented as of this encounter
--- OUTSIDE RECORDS SUMMARY | 2024-11-27 20:34 | XMS_ITS | Encounter Summary ---
Author Organization [facility] Address [address] [place] [address] Care Team Providers Care Paper Rewinder Name Role Phone Unknown, Provider Primary Care Provider Kylie Pérez Primary Care Provider [phone] Encounter Details Date Type Department Care Team (Late st Contact Info) Description 12/01/2019 Historical Results Only [facility] - Main [place] [address] [place], [place] [address] Cathryn Monzno NP [address] [place] [address] Social History Tobacco Use Types [...] CULTURE, URINE (12/01/2019 16:48 EST) [facility] 12/03/2019 7:32 EST [facility] CitrateConcentration 10,000-100,00 0 CFU/ML 12/03/2019 7:32 EST [facility] 12/01/2019 16:4 8 EST 12/01/2019 [...] [facility] <=1: Susceptible Comment:RECURRENT UTI Cathryn Monzon HARVEST WORKER FIELD CROP MICROBIOLOGY - GENERAL KAT FRAIRE Edited Result - Final [facility] documented in this encounter Visit Diagnoses Not on filedocumented in this encounter Care Teams Paper Rewinder Relationship Specialty Start Date End Date Unknown, Provider, PCP - General 10/15/16 12/14/19 Kylie Oglesby [address] [place] [address] PCP - General Internal Medicine - Primary Care 12/15/19 documented as of this encounter
--- OUTSIDE RECORDS SUMMARY | 2024-11-27 20:34 | XMS_ITS | Encounter Summary ---
Author Organization [facility] Address [address] [place] [address] Care Team Providers Care Paraplanner Name Role Phone Kylie Oglesby Primary Care Provider [phone] Reason for Visit * Auth/Cert Specialty Diagnoses / Procedures Referred By Kavitha burgos Referred To Contact Diagnoses History of colon polyps History of colon polyps [Z86.010] Procedures COLONOSCOPY PROCEDURE-GI Referral ID Status Reason Start Date Expiration Date Visits Re quested Visits Authorized [id number] 1 1 Encounter Details Date Type Department Care Team (Late st Contact Info) Description 02/18/2020 11:10 EDT - 02/18/2020 11:[address] [facility] Endoscopy - [address] [address] Sara Mendez MD 111 [facility], [facility] 5 [place] [address] COLONOSCOPY PROCEDURE-GI Surgery Details Date/Time Status Location OR Service Patient Class Case Cl ass Case Type Trauma Case? 02/18/2020 1110 Posted [facility] GI/ENDO ENDO [address] [place] [address] Outpatient Procedure H - Elective Panel 1 [...] & Physical Date: 02/18/2020 Time: 11:29 Location: [facility] GI/ENDO Planned Procedure: Procedure(s): COLONOSCOPY PROCEDURE-GI Chief [...] ??Total sedation time was 26 ?? minutes. [place] Bowel Prep Right Colon: 3 ? Transverse [...] Starting on Tuyet 02/18/20 at 1209, Until Tyuet 02/18/20 at 1654, peripheral intravenous catheter placement, [...] 02/18/2020 documented in this encounter Care Teams Paraplanner Relationship Specialty Start Date End Date Kylie Oglesby [address] [facility] [place] [address] PCP - General Internal Medicine - Primary Care 12/15/19 documented as of this encounter
--- OUTSIDE RECORDS SUMMARY | 2024-11-27 20:34 | XMS_ITS | Encounter Summary ---
Author Organization [facility] Address [address] [place] [address] Care Team Providers Care Restaurant Area Director Name Role Phone Unknown, Provider Primary Care Provider Kylie Pérez Primary Care Provider [phone] Encounter Details Date Type Department Care Team (Late st Contact Info) Description 12/14/[address] [facility] Radiology Results [address] [place], [place] [id number] Cathryn Monzon, SUPERINTENDENT DRILLING [address] [place] [address] Social History Tobacco Use Types [...] CC: ? Transcribed Date/Time: 12/14/2019 (1838) ? Stock Checkerer: [employer] ? Printed Date/Time: 12/14/2019 (1838) ? [...] Avalos MD CC: Transcribed Date/Time: 12/14/2019 (1838) Stock Checkerer: Printed Date/Time: 12/14/2019 (1838) PAGE 2 Signed Report us Cathryn Monzon SUPERINTENDENT DRILLING IMG CT ORDERABLES Final Res ult documented in this encounter Visit Diagnoses Not on filedocumented in this encounter Care Teams Restaurant Area Director Relationship Specialty Start Date End Date Unknown, Provider, PCP - General 10/15/16 12/14/19 Kylie Oglesby [address] [place] [address] PCP - General Internal Medicine - Primary Care 12/15/19 documented as of this encounter
--- OUTSIDE RECORDS SUMMARY | 2024-11-27 20:34 | XMS_ITS | Encounter Summary ---
Author Organization [facility] Address [address] [place] [address] Care Team Providers Care Drug Discovery Informatics Specialist Name Role Phone Kylie Oglesby Primary Care Provider [phone] Encounter Details Date Type Department Care Team (Late st Contact Info) Description 03/14/2020 Lab Requisition [facility] Pathology & Laboratory Medicine - [facility] [address] [place] [address] Outr Resulting Lab, Provider Social History Tobacco [...] rt-PCR Result NEGATIVE Negative 03/15/2020 14:20 EDT [facility] Comment: 2019-novel Coronavirus (2019-nCoV) not detected [...] in accordance with CLIA regulations, [employer] (CAP) guidelines (Jan 14, 2020), and FDA guidance (Dec 26, 2019). This test is only for use under the Food and Drug Administration's Emergency Use Authorization. Swab ENTIRE NASOPHARYNX / Unknown 03/14/2020 13:53 EDT 03/14/2020 21:37 EDT us Provider Outr Resulting Lab MICROBIOLOGY - GENER AL ORDERABLES Final Result [facility] [place], [place] * COVID-19 TESTING (03/14/2020 13:53 EDT) COVID-19 rt-PCR Result NEGATIVE Negative 03/15/2020 17:54 EDT [facility] Comment: 2019-novel Coronavirus (2019-nCoV) not detected [...] obtained via nasopharyngeal or oropharyngeal swabs in [facility], , M5, M6, saline, [...] in accordance with CLIA regulations, [employer] (CAP) guidelines (Jan 14, 2020), and FDA guidance (Dec 26, 2019). This test is only for use under the Food and Drug Administration's Emergency Use Authorization. Performing Lab [facility] 03/15/2020 17:54 EDT [facility] Swab ENTIRE NASOPHARYNX / Unknown 03/14/2020 13:53 EDT 03/14/2020 21:37 EDT us Provider Outr Resulting Lab MICROBIOLOGY - GENER AL ORDERABLES Final Result [facility] [address] [place] [address] [facility] [place], [place] documented in this encounter Visit Diagnoses Not on filedocumented in this encounter Care Teams Drug Discovery Informatics Specialist Relationship Specialty Start Date End Date Kylie Oglesby [address] [facility] [place] [address] PCP - General Internal Medicine - Primary Care 12/15/19 documented as of this encounter
--- OUTSIDE RECORDS SUMMARY | 2024-11-27 20:34 | XMS_ITS | Encounter Summary ---
Author Organization [facility] Address [address] [place] [address] Care Team Providers Care Rural Mail Carrier Name Role Phone Kylie Oglesby Primary Care Provider [phone] Encounter Details Date Type Department Care Team (Latest Contact Info) Description 03/03/2020 11:30 EDT - 03/04/2020 23:59 EDT Hospital Encounter [facility] Pre-Surgical Testing [address] [place], [place] [id number] Discharge Disposition: Home or Self Care Social [...] Garcia RN - 03/03/2020 1207 EDT Jasbir Kaet has been instructed as follows regarding medication [...] instruct them to call us back at [phone] to report symptoms If the patient answers [...] documented as of this encounter Care Teams Rural Mail Carrier Relationship Specialty Start Date End Date Kylie Oglesby [address] [place] [address] PCP - General Internal Medicine - Primary Care 12/15/19 documented as of this encounter
--- OUTSIDE RECORDS SUMMARY | 2024-11-27 20:34 | XMS_ITS | Encounter Summary ---
Author Organization [facility] Address [address] [place] [address] Care Team Providers Care Tube Making Machine Operator Name Role Phone Unknown, Provider Primary Care Provider Unava ilable Encounter Details Date Type Department Care Team (Late st Contact Info) Description 12/08/2019 Orders Only [facility] [address] [place] [address] Cathryn Monzon, WAREHOUSE ORDER PICKER [address] [place] [address] Frequent UTI (Primary Dx) Social [...] 136 - 145 mEq/L 03/01/2020 16:59 EDT [facility] Potassium 4.5 3.5 - 5.0 mEq/L 03/01/2020 16:59 EDT [facility] Chloride 104 96 - 110 mEq/L 03/01/2020 16:59 EDT [facility] CO2 Total 27 22 - 32 mEq/L 03/01/2020 16:59 [facility] Glucose 86 70 - 100 mg/dL 03/01/2020 16:59 [facility] Calcium 9.9 8.5 - 10.5 mg/dL 03/01/2020 16:59 T [facility] Calculated Calcium 9.6 8.5 - 10.5 mg/dL 03/01/2020 16:59 [facility] BUN 15 10 - 26 mg/dL 03/01/2020 16:59 [facility] Creatinine 0.85 0.66 - 1.25 mg/dL 03/01/2020 16:59 [facility] eGFR 83 >60 mL/min/1.7 3m2 03/01/2020 16:59 [facility] Comment:eGFR calculated ernesto cee CKD-EPI equation for non- Americans. Multiply eGFR by 1.16 for patients. Blood VENOUS BLOOD / Unknown Venipuncture / Unknown 03/01/2020 15:57 EDT 03/01/2020 16:26 EDT us Cathryn Monzon WAREHOUSE ORDER PICKER CHEMISTRY & BLOOD GAS ORDER RENEE Final Result [facility] [address] [place] [address] documented in this encounter Visit Diagnoses Diagnosis Frequent UTI- Primary Urinary tract infection, site not specified documented in this encounter Care Teams Tube Making Machine Operator Relationship Specialty Start Date End Date Unknown, Provider, PCP - General 10/15/16 12/14/19 documented as of this encounter
--- OUTSIDE RECORDS SUMMARY | 2024-11-27 20:34 | XMS_ITS | Encounter Summary ---
Author Organization [facility] Address [address] [place] [address] Care Team Providers Care Lacquer Spray Booth Operator Name Role Phone Kylie Oglesby Primary Care Provider [phone] Reason for Visit * Auth/Cert Specialty Diagnoses / Procedures Referred By Kavitha burgos Referred To Contact Diagnoses Colovesical fistula Procedures CO LAP,SURG,COLECTOMY, PARTIAL, W/ANAST Diagnostic laparoscopy with possible sigmoid colectomy Referral ID Status Reason Start Date Expiration Date Visits Re quested Visits Authorized [id number] 1 1 Encounter Details Date Type Department Care Team (Late st Contact Info) Description 03/17/2020 8:25 EDT - 03/17/2020 12:35 EDT Surgery [facility] OR [address] [place] [address] [id number] Sara Mendez MD [address] [place] [address], [facility], [address] [place] [address] Diagnostic laparoscopy with possible sigmoid colectomy [60957 (CPT??)] Surgery Details Date/Time Status Location OR Service Patient Class Case Class Case Type Trauma Case? 03/17/2020 0825 Posted [facility] OR [facility] 14 General Surgery Admit H - Elective [...] 03/01/2020 Added automatically from request for surgery [id number] ??? Diverticulitis 03/01/2020 Added automatically from request for surgery [id number] Resolved Hospital Problems No resolved problems to [...] Post Op Visit with Sara Mendez MD [facility] Surgery [facility] (--) [address] [facility] [address] Follow-up appointments and procedures Amb Consult/Follow Up Home Health Services I certify that this patient is under my care and that I, or another Medicare authorized non-physician practitioner (PA or WELFARE ELIGIBILITY INTERVIEWER) or resident working with me, had a riyn-ie-xlwp encounter with this patient on this date: 03/25/2020 I further certify that the gcpf-la-xyhu encounter was in whole or in part related to the reason thepatient needs home health care.: Yes The patient has had a zaow-tf-zkau visit by me or one of my [...] Skilled Care Requested: Physical Therapy Nursing asessment residential assessment needed related to this encounter: GI Status Physical therapy is needed for: Safety Strength Training/Exercise Program Gait/Mobility Assessment and Training Expected Discharge Date (Inpatient Only): 03/25/2020 Authorizing Provider: Es Peace APRN Follow-up Appointment Please call our clinic at [phone] to schedule a follow up appointment with [...] the patient and discussed with the resident/medical student/WELFARE ELIGIBILITY INTERVIEWER team. I agree with the findings and plan of care documented in the resident's/medical student's/WELFARE ELIGIBILITY INTERVIEWER's note. Sara Mendez Division of General Surgery [...] Disposition Code Departure Means Destination Home-Health Care [facility] Home documented in this encounter Progress Notes * Muriel Gaona - 03/25/2020 1310 EDT CM Note Pt advancing diet; progressing with activity. He will dc home with SN and PT services when medically ready likely next 24-48 hours. agency is [facility]. Ami Gaona RN CCM 4010 * [...] General Surgery PGY2 X6298 * Es Peace, SOURCING MANAGER - 03/24/2020 0822 EDT Surgery Daily Progress [...] fistula Added automatically from request for surgery [id number] ??? Diverticulitis Added automatically from request for surgery [id number] Jasbir Kate is a 79 y.o. male [...] Enoxaparin Es Peace APRN 03/24/2020 8:22 Pager #[phone] * Thania Landaverde - 03/23/2020 1401 EDT Nutrition Note: Reason for Assessment: NPO/CL greater than/equal to 5 days Patient identified at risk due to NPO/CL day 6 today. Sounds to be having return of bowel function,NGT removed. Will continue to follow to see if needs full nutrition assessment. Thania Landaverde RD (Betsy), CD, [facility] B[facility] Dietitian Pager: [phone] * Jaguar Liang MD - 03/23/2020 0919 EDT Blue Surgery Progress Note Chief complaint: [...] attestation - Sara Mendez MD - 03/23/2020 2843 EDT Check drain creatinine, if ok, pull drain. I saw and examined the patient and discussed with the resident/medical student/WELFARE ELIGIBILITY INTERVIEWER team. I agree with the findings and plan of care documented in the resident's/medical student's/WELFARE ELIGIBILITY INTERVIEWER's note. Sara Mendez Division of General Surgery Colon and Rectal Surgery * Es Peace, SOURCING MANAGER - 03/22/2020 0719 EDT Surgery Daily Progress [...] fistula Added automatically from request for surgery [id number] ??? Diverticulitis Added automatically from request for surgery [id number] ?? Jasbir Kate is a 79 y.o. [...] Enoxaparin Es Peace APRN 03/22/2020 7:19 Pager #[phone] Cosigned by Sara Mendez MD at 03/22/2020 7:55 EDT Associated attestation - Sara Mendez MD - 03/22/2020 0755 EDT + BM, continued flatus. Still distended, but much improved from Saturday. Will trial clamping, but will be slow to progress diet. Cystogram today. I saw and examined the patient and discussed with the resident/medical student/WELFARE ELIGIBILITY INTERVIEWER team. I agree with the findings and plan of care documented in the resident's/medical student's/WELFARE ELIGIBILITY INTERVIEWER's note. Sara Mendez Division of General Surgery [...] events: -Nausea and emesis this AM Subjective: [place] nauseous this morning and spit up what [...] the patient and discussed with the resident/medical student/WELFARE ELIGIBILITY INTERVIEWER team. I agree with the findings and plan of care documented in the resident's/medical student's/WELFARE ELIGIBILITY INTERVIEWER's note. Sara Mendez Division of General Surgery Colon and Rectal Surgery * Muriel Gaona - 03/18/2020 1545 EDT Initial Case Management/Social Work Assessment and Discharge Plan/Readmission Risk Assessment REASON FOR ADMISSION: Colovesical fistula now POD 1 sigmoidectomy and fistula takedown Patient understands reason for admission: Yes PATIENT CONTACT INFO VERIFIED: Yes PATIENT ADDRESS VERIFIED: Yes([address] [place] [address]) LIVING ARRANGEMENTS AND ACCESSIBILITY ISSUES: Living Arrangements: Spouse / significant other Levels: 1 Bathroom located on bedroom level?: Yes What in home social supports are available to the patient? Spouse / significant other Is / care available? Yes ADVANCED DIRECTIVES, POA &/or COLST IN PLACE: Healthcare Directive: Yes, patient has advance directive for healthcare treatment Type of Healthcare Directive: Durable power of civil attorney for health care Copy in Chart: Yes, new copy in paper chart @ [facility] DIRECTIVES FOR FINANCES: TRANSPORTATION: Transportation: Family, Self CULTURAL, ADVENTIST and/or LANGUAGE factors affecting health care/discharge planning: [...] Health Services: Nurse visit DME Provider: Pharmacy: [id number] - [place], [place] - [address] [place] [address] Home Health: Referral to [facility] per pt preference Other: POST HOSPITAL TRANSITION PLAN: Pt lives with supportive spouse. Active and independent at baseline.CM following and will assist with dc plans as needed. Ami Gaona RN CCM 4010 03/18/2020 * Es Peace, SOURCING MANAGER - 03/18/2020 0800 EDT Surgery Daily Progress [...] fistula Added automatically from request for surgery [id number] ??? Diverticulitis Added automatically from request for surgery [id number] Jasbir Kate is a 79 y.o. male [...] at Es Peace APRN 03/18/2020 8:00 Pager #[phone] Cosigned by Sara Mendez MD at 03/19/2020 8:04 EDT Associated attestation - Sara Mendez MD - 03/19/2020 0804 EDT Distended, but minimally tender. Making good urine. No further fevers, treating UTI (present on admission from colovesicular fistula). I saw and examined the patient and discussed with the resident/medical student/WELFARE ELIGIBILITY INTERVIEWER team. I agree with the findings and plan of care documented in the resident's/medical student's/WELFARE ELIGIBILITY INTERVIEWER's note. Sara Mendez Division of General Surgery Colon and Rectal Surgery * Korin Srivastava MD - 03/17/2020 5213 EDT SURGERY POST-OP CHECK SUBJECTIVE: Is having lower abdominal pain near his incision, but states the pain has been relatively well controlled. Has not been OOB. Not passing flatus. Has tolerated sips of water without nauseaor vomiting. [place] chilled a couple hours ago, but feels [...] use Korin Srivastava MD 03/17/2020 15:55 Surgical Anchor Tack Puller Pager #[phone] documented in this encounter H&P Notes * [...] been seen by the urology department at [facility] with Cathryn Monzon. She did a CT [...] 25 years ago but has about a 70-gydl-bnjl history. drinks wine daily. 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 He goes to the gym 3 times a week and either sits on the bike or the elliptical machine. He denies any chest pain with exertion, but does have some shortness of breath ifhe walks out 2 flights of stairs ?? Colonoscopy was about 2 to 3 years ago at [facility]. He states it was normal. [...] screened at designated points of entry to [facility] Patient and Family will be screened again [...] to: PreOp TL, PreOp bedside RN, PACU diesel engine specialist, Anesthesia and Surgeon. Managers as needed. ??? [...] unless special circumstances (Child, cognitive impairment, and historical interpreter). Pt temp: 36.5 Visitor Temp: Visitor Name: [...] SERVICE DATE: 03/17/2020 SURGEON: Sara Mendez MD NEWSPAPER DISTRIBUTOR SUPERVISOR: Es Peace APRN (No qualified resident was [...] extensively and ensured hemostasis. We left a 19-Pashto Luis Armando drain from the left lower [...] AM / Sara Mendez MD jn Confirmation: [id number] Dictation ID: [id number] documented in this encounter Miscellaneous Notes * Plan of Care - Rosalina Corona RN - 03/26/2020 1132 EDT Nursing Discharge Note D: Patient noted with discharge orders to: home. A: Prescriptions e-scripted. Reviewed discharge instructions and prescriptions with Patient. IV d/c'd. Belongings collected and sent home with patient. Report called to [facility]. Transition of care & AVS faxed. R: Patient verbalized understanding of discharge instructions and denied further questions. Transport wheeled patient down to [employer] to meet ride. ROSALINA CORONA RN 03/26/2020 [...] Care - Renita Reid RN - 03/23/2020 5879 EDT Problem: Daily Care Plan Goals Goal: [...] Care - Keisha Shelley RN - 03/22/2020 5280 EDT Data: Pt A+Ox3. Denies pain throughout [...] Care - Renita Reid RN - 03/22/2020 0482 EDT Problem: Daily Care Plan Goals Goal: [...] Care - Moises Dent RN - 03/21/2020 8145 EDT Data: Pt on POD#4 from laparoscopic [...] prior to having kincaid catheter removed. Call heringtonmandeep nieves, will continue to monitor. 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 Surgeons * Sara Mendez MD - Primary Procedure Summary Anesthesia: General ASA: ASA status not filed in the log. Estimated Blood Loss: 50cc Total IV Fluids: 700 mL Urine Output: 50cc Sheryl LDAs: PIV Staff: Remedial Reading Teacher: Valeria Gaspar RN Scrub Person: Adonay Madrid RN Patient Digital Account Executive: Alexandrea García Indications: Tony Kate is an [...] (No=0, Yes=1) Blood loss 0 (<500=0, 500-1000=1, 4088-4217=3, >2000=6) Duration of procedure 1(<2:00=0, 2:00-2:59=1, 3:00-3:59=2, [...] 10 - 26 mg/dL 03/24/2020 6:25 EDT [facility] Blood VENOUS BLOOD / Unknown Venipuncture / Unknown 03/24/2020 5:36 EDT 03/24/2020 5:56 EDT us Bahman Perez MD CHEMISTRY & BLOOD GAS ORDERABL ES Final Result [facility] [address] [place] [address] * (ABNORMAL) CALCIUM (03/24/2020 5:36 EDT) Calcium 8.2(L) 8.5 - 10.5 mg/dL 03/24/2020 6:25 EDT [facility] Calculated Calcium 9.2 8.5 - 10.5 mg/dL 03/24/2020 6:25 [facility] Blood VENOUS BLOOD / Unknown Venipuncture / Unknown 03/24/2020 5:36 EDT 03/24/2020 5:56 EDT us Bahman Perez MD CHEMISTRY & BLOOD GAS ORDERABL ES Final Result [facility] [address] [place] [address] * (ABNORMAL) COMPLETE BLOOD COUNT AND DIFFERENTIAL (03/24/2020 5:36 EDT) WBC 8.68 4.00 - 10.40 K/cmm 03/24/2020 6:02 [facility] RBC 4.38 4.36 - 5.78 M/cmm 03/24/2020 6:02 [facility] Hemoglobin 14.1 13.8 - 17.3 gm/dL 03/24/2020 6:02 [facility] HCT 42.2 39.5 - 50.2 % 03/24/2020 6:02 [facility] MCV 96(H) 81 - 95 fl 03/24/2020 6:02 [facility] MCH 32.2 27.6 - 33.0 pg 03/24/2020 6:02 [facility] MCHC 33.4 32.8 - 36.4 gm/dL 03/24/2020 6:02 [facility] RDW-CV 12.2 <14.2 % 03/24/2020 6:02 [facility] RDW-SD 43.7 <46.0 fl 03/24/2020 6:02 [facility] PLT 265 141 - 377 K/cmm 03/24/2020 6:02 [facility] MPV 10.2 9.5 - 12.7 fl 03/24/2020 6:02 [facility] % Neutrophils 72.3 % 03/24/2020 6:02 [facility] % Lymphocytes 17.1 % 03/24/2020 6:02 [facility] % Monocytes 7.1 % 03/24/2020 6:02 [facility] % Eosinophils 2.6 % 03/24/2020 6:02 [facility] % Basophils 0.3 % 03/24/2020 6:02 [facility] % Immature Grans 0.6 % 03/24/20 20 6:02 [facility] Absolute Neutrophils 6.27 2.20 - 8.85 K/cmm 03/24/2020 6:02 [facility] Absolute Lymphocytes 1.48 1.09 - 3.30 K/cmm 03/24/2020 6:02 [facility] Absolute Monocytes 0.62 0.10 - 0.80 K/cmm 03/24/2020 6:02 [facility] Absolute Eosinophils 0.23 0.03 - 0.61 K/cmm 03/24/2020 6:02 [facility] ABS Basophils 0.03 0.01 - 0.11 K/cmm 03/24/2020 6:02 [facility] Absolute Immature Grans 0.05 0.00 - 0.06 K/cmm 03/24/2020 6:02 [facility] Type of Differential: Auto 03/24/2020 6:02 [facility] Blood VENOUS BLOOD / Unknown Venipuncture / Unknown 03/24/2020 5:36 EDT 03/24/2020 5:54 EDT us Bahman Perez MD PACKAGES & DNA PROBE ORDERABLE S Final Result [facility] [address] [place] [address] * CREATININE (03/24/2020 5:36 EDT) Creatinine 0.66 0.66 - 1.25 mg/dL 03/24/2020 6:25 EDT [facility] eGFR 93 >60 mL/min/1.7 3m2 03/24/2020 6:25 EDT [facility] Comment:eGFR calculated ernesto cee CKD-EPI equation for non- Americans. Multiply eGFR by 1.16 for patients. Blood VENOUS BLOOD / Unknown Venipuncture / Unknown 03/24/2020 5:36 EDT 03/24/2020 5:56 EDT Bahman Perez MD CHEMISTRY & BLOOD GAS ORDERABL ES Final Result Performing Organization Address City/[facility]/ZIP Co de Phone Number [facility] [address] [place] [address] * ELECTROLYTES (03/24/2020 5:36 EDT) Sodium 139 136 - 145 mEq/L 03/24/2020 6:25 EDT [facility] Potassium 3.9 3.5 - 5.0 mEq/L 03/24/2020 6:25 EDT [facility] Chloride 108 96 - 110 mEq/L 03/24/2020 6:25 EDT [facility] CO2 Total 23 22 - 32 mEq/L 03/24/2020 6:25 EDT [facility] Blood VENOUS BLOOD / Unknown Venipuncture / Unknown 03/24/2020 5:36 EDT 03/24/2020 5:56 EDT Bahman Perez MD CHEMISTRY & BLOOD GAS ORDERABL ES Final Result [facility] [address] [place] [address] * MAGNESIUM (03/24/2020 5:36 EDT) Magnesium 2.4 1.7 - 2.8 mg/dL 03/24/2020 6:25 EDT [facility] Blood VENOUS BLOOD / Unknown Venipuncture / Unknown 03/24/2020 5:36 EDT 03/24/2020 5:56 EDT us Bahman Perez MD CHEMISTRY & BLOOD GAS ORDERABL ES Final Result Performing Organization Address [facility] Co de Phone Number [facility] [address] [place] [address] * CREATININE, FLUID (03/23/2020 12:34 EDT) Creatinine, Fluid 0.66 See Note mg/dL 03/23/2020 14:55 EDT [facility] Comment: Peritoneal Fluid Reference range unavailable. Clinical correlation required. This Fluid Creatinine assay was developed and its performance characteristics determined by [facility]. ??It has not been cleared or approved by the US Food and Drug Administration. Fluid PERITONEAL FLUID / Unknown 03/23/2020 12:34 EDT 03/23/2020 14:35 EDT us Jaguar Liang MD GEN LAB UNIT COLLECT ORDERABLE S Final Result Performing Organization Address [facility] Co de Phone Number [facility] [address] [place] [address] * HN LAB CBC SMEAR REVIEW (03/23/2020 7:48 EDT) Differential Comment Slide was examined by a technologist to verify the WBC and/or platelet count. 03/23/2020 8:42 EDT [facility] Blood VENOUS BLOOD / Unknown Venipuncture / Unknown 03/23/2020 7:48 EDT 03/23/2020 8:05 EDT us Clayton Reynoso MD HEMATOLOGY & PF4 ORDERABLES Final Result Performing Organization Address [facility] Co de Phone Number [facility] [address] [place] [address] * (ABNORMAL) COMPLETE BLOOD COUNT AND DIFFERENTIAL (03/23/2020 7:48 EDT) WBC 10.38 4.00 - 10.40 K/cmm 03/23/2020 8:43 EDT [facility] RBC 4.91 4.36 - 5.78 M/cmm 03/23/2020 8:43 [facility] Hemoglobin 16.0 13.8 - 17.3 gm/dL 03/23/2020 8:43 [facility] HCT 46.9 39.5 - 50.2 % 03/23/2020 8:43 [facility] MCV 96(H) 81 - 95 fl 03/23/2020 8:43 [facility] MCH 32.6 27.6 - 33.0 pg 03/23/2020 8:43 [facility] MCHC 34.1 32.8 - 36.4 gm/dL 03/23/2020 8:43 [facility] RDW-CV 12.3 <14.2 % 03/23/2020 8:43 [facility] RDW-SD 42.5 <46.0 fl 03/23/2020 8:43 [facility] PLT 03/23/2020 8:43 [facility] Comment:Unreportable due to presence of platelet clumps. MPV 03/23/2020 8:43 [facility] Comment:Not Available % Neutrophils 77.3 % 03/23/2020 8:43 [facility] % Lymphocytes 13.8 % 03/23/2020 8:43 [facility] % Monocytes 6.8 % 03/23/2020 8:43 [facility] % Eosinophils 1.2 % 03/23/2020 8:43 [facility] % Basophils 0.4 % 03/23/2020 8:43 [facility] % Immature Grans 0.5 % 03/23/20 20 8:43 [facility] Absolute Neutrophils 8.03 2.20 - 8.85 K/cmm 03/23/2020 8:43 [facility] Absolute Lymphocytes 1.43 1.09 - 3.30 K/cmm 03/23/2020 8:43 [facility] Absolute Monocytes 0.71 0.10 - 0.80 K/cmm 03/23/2020 8:43 [facility] Absolute Eosinophils 0.12 0.03 - 0.61 K/cmm 03/23/2020 8:43 EDT [facility] ABS Basophils 0.04 0.01 - 0.11 K/cm 03/23/2020 8:43 EDT [facility] Absolute Immature Grans 0.05 0.00 - 0.06 K/cm 03/23/2020 8:43 EDT [facility] Type of Differential: Auto 03/23/2020 8:43 EDT [facility] Blood VENOUS BLOOD / Unknown Venipuncture / Unknown 03/23/2020 7:48 EDT 03/23/2020 8:05 EDT us Clayton Reynoso MD PACKAGES & DNA PROBE ORDERA BLES Final Result Performing Organization Address City/[facility]/ZIP Co de Phone Number [facility] [address] [place] [address] * CALCIUM (03/23/2020 7:48 EDT) Calcium 8.7 8.5 - 10.5 mg/dL 03/23/2020 8:14 EDT [facility] Calculated Calcium 9.0 8.5 - 10.5 mg/dL 03/23/2020 8:14 EDT [facility] Blood VENOUS BLOOD / Unknown Venipuncture / Unknown 03/23/2020 7:48 EDT 03/23/2020 7:55 EDT us Clayton Reynoso MD CHEMISTRY & BLOOD GAS ORDER RENEE Final Result [facility] [address] [place] [address] * MAGNESIUM (03/23/2020 7:48 EDT) Magnesium 2.5 1.7 - 2.8 mg/dL 03/23/2020 8:14 EDT [facility] Blood VENOUS BLOOD / Unknown Venipuncture / Unknown 03/23/2020 7:48 EDT 03/23/2020 7:55 EDT Clayton Reynoso MD CHEMISTRY & BLOOD GAS ORDER RENEE Final Result [facility] [address] [place] [address] * (ABNORMAL) ELECTROLYTES (03/23/2020 7:48 EDT) Sodium 143 136 - 145 mEq/L 03/23/2020 8:14 EDT [facility] Potassium 3.2(L) 3.5 - 5.0 mEq/L 03/23/2020 8:14 EDT [facility] Chloride 109 96 - 110 mEq/L 03/23/2020 8:14 EDT [facility] CO2 Total 25 22 - 32 mEq/L 03/23/2020 8:14 EDT [facility] Blood VENOUS BLOOD / Unknown Venipuncture / Unknown 03/23/2020 7:48 EDT 03/23/2020 7:55 EDT Clayton Reynoso MD CHEMISTRY & BLOOD GAS ORDER RENEE Final Result Performing Organization Address [facility] Co de Phone Number [facility] [address] [place] [address] * (ABNORMAL) CREATININE (03/23/2020 7:48 EDT) Creatinine 0.62(L) 0.66 - 1.25 mg/dL 03/23/2020 8:14 EDT [facility] eGFR 95 >60 mL/min/1.7 3m2 03/23/2020 8:14 EDT [facility] Comment:eGFR calculated ernesto cee CKD-EPI equation for non- Americans. Multiply eGFR by 1.16 for patients. Blood VENOUS BLOOD / Unknown Venipuncture / Unknown 03/23/2020 7:48 EDT 03/23/2020 7:55 EDT Clayton Reynoso MD CHEMISTRY & BLOOD GAS ORDER RENEE Final Result [facility] [address] [place] [id number] * BUN (03/23/2020 7:48 EDT) BUN 16 10 - 26 mg/dL 03/23/2020 8:14 EDT [facility] Blood VENOUS BLOOD / Unknown Venipuncture / Unknown 03/23/2020 7:48 EDT 03/23/2020 7:55 EDT us Clayton Reynoso MD CHEMISTRY & BLOOD GAS ORDER RENEE Final Result [facility] [address] [place] [address] * FL CYSTOGRAM (03/22/2020 9:43 EDT) Anatomical [...] bladder Comparison: CT abdomen pelvis 12/14/2019. FINDINGS: Oscillograph Technician KUB film of the abdomen shows the [...] frombladder Comparison: CT abdomen pelvis 12/14/2019. FINDINGS: Oscillograph Technician KUB film of the abdomen shows the [...] 4.00 - 10.40 K/cmm 03/19/2020 6:54 T [facility] RBC 5.19 4.36 - 5.78 M/cmm 03/19/2020 6:54 [facility] Hemoglobin 16.7 13.8 - 17.3 gm/dL 03/19/2020 6:54 [facility] HCT 49.2 39.5 - 50.2 % 03/19/2020 6:54 [facility] MCV 95 81 - 95 fl 03/19/2020 6:54 [facility] MCH 32.2 27.6 - 33.0 pg 03/19/2020 6:54 EDT [facility] MCHC 33.9 32.8 - 36.4 gm/dL 03/19/2020 6:54 EDT [facility] RDW-CV 12.4 <14.2 % 03/19/2020 6:54 EDT [facility] RDW-SD 43.0 <46.0 fl 03/19/2020 6:54 EDT [facility] PLT 233 141 - 377 K/cmm 03/19/2020 6:54 EDT [facility] MPV 10.4 9.5 - 12.7 fl 03/19/2020 6:54 EDT [facility] Blood VENOUS BLOOD / Unknown Venipuncture / Unknown 03/19/2020 6:39 EDT 03/19/2020 6:44 EDT Clayton Reynoso MD HEMATOLOGY & PF4 ORDERABLES Final Result Performing Organization Address City/[facility]/ZIP Co de Phone Number [facility] [address] [place] [address] * (ABNORMAL) ELECTROLYTES (03/19/2020 6:39 EDT) Sodium 138 136 - 145 mEq/L 03/19/2020 7:21 EDT [facility] Potassium 4.1 3.5 - 5.0 mEq/L 03/19/2020 7:21 EDT [facility] Chloride 106 96 - 110 mEq/L 03/19/2020 7:21 EDT [facility] CO2 Total 20(L) 22 - 32 mEq/L 03/19/2020 7:21 EDT [facility] Blood VENOUS BLOOD / Unknown Venipuncture / Unknown 03/19/2020 6:39 EDT 03/19/2020 6:51 EDT Clayton Reynoso MD CHEMISTRY & BLOOD GAS ORDER RENEE Final Result Performing Organization Address City/[facility]/ZIP Co de Phone Number [facility] [address] [place] [address] * (ABNORMAL) CREATININE (03/19/2020 6:39 EDT) Creatinine 0.63(L) 0.66 - 1.25 mg/dL 03/19/2020 7:21 EDT [facility] eGFR 94 >60 mL/min/1.7 3m2 03/19/2020 7:21 EDT [facility] Comment:eGFR calculated ernesto cee CKD-EPI equation for non- Americans. Multiply eGFR by 1.16 for patients. Blood VENOUS BLOOD / Unknown Venipuncture / Unknown 03/19/2020 6:39 EDT 03/19/2020 6:51 EDT Clayton Reynoso MD CHEMISTRY & BLOOD GAS ORDER RENEE Final Result Performing Organization Address City/[facility]/ZIP Co de Phone Number [facility] [address] [place] [address] * BUN (03/19/2020 6:39 EDT) BUN 14 10 - 26 mg/dL 03/19/2020 7:21 EDT [facility] Blood VENOUS BLOOD / Unknown Venipuncture / Unknown 03/19/2020 6:39 EDT 03/19/2020 6:51 EDT Clayton Reynoso MD CHEMISTRY & BLOOD GAS ORDER RENEE Final Result Performing Organization Address City/[facility]/ZIP Co de Phone Number [facility] [address] [place] [address] * (ABNORMAL) COMPLETE BLOOD COUNT (03/18/2020 18:25 EDT) WBC 14.98(H) 4.00 - 10.40 K/cmm 03/18/2020 18:39 EDT [facility] RBC 4.98 4.36 - 5.78 M/cmm 03/18/2020 18:39 EDT [facility] Hemoglobin 16.4 13.8 - 17.3 gm/dL 03/18/2020 18:39 EDT [facility] HCT 47.5 39.5 - 50.2 % 03/18/2020 18:39 EDT [facility] MCV 95 81 - 95 fl 03/18/2020 18:39 EDT [facility] MCH 32.9 27.6 - 33.0 pg 03/18/2020 18:39 EDT [facility] MCHC 34.5 32.8 - 36.4 gm/dL 03/18/2020 18:39 EDT [facility] RDW-CV 12.5 <14.2 % 03/18/2020 18:39 EDT [facility] RDW-SD 43.9 <46.0 fl 03/18/2020 18:39 EDT [facility] PLT 203 141 - 377 K/cmm 03/18/2020 18:39 T [facility] MPV 10.3 9.5 - 12.7 fl 03/18/2020 18:39 EDT [facility] Blood VENOUS BLOOD / Unknown Venipuncture / Unknown 03/18/2020 18:25 EDT 03/18/2020 18:31 EDT us Clayton Reynoso MD HEMATOLOGY & PF4 ORDERABLES Final Result Performing Organization Address City/State/[facility] Co de Phone Number [facility] [address] [place] [address] * (ABNORMAL) COMPLETE BLOOD COUNT (03/18/2020 16:02 EDT) WBC 16.21(H) 4.00 - 10.40 K/cmm 03/18/2020 16:52 EDT [facility] RBC 5.27 4.36 - 5.78 M/cmm 03/18/2020 16:52 EDT [facility] Hemoglobin 17.2 13.8 - 17.3 gm/dL 03/18/2020 16:52 EDT [facility] HCT 50.9(H) 39.5 - 50.2 % 03/18/2020 16:52 EDT [facility] MCV 97(H) 81 - 95 fl 03/18/2020 16:52 EDT [facility] MCH 32.6 27.6 - 33.0 pg 03/18/2020 16:52 EDT [facility] MCHC 33.8 32.8 - 36.4 gm/dL 03/18/2020 16:52 EDT [facility] RDW-CV 12.5 <14.2 % 03/18/2020 16:52 EDT [facility] RDW-SD 45.0 <46.0 fl 03/18/2020 16:52 EDT [facility] PLT 226 141 - 377 K/cmm 03/18/2020 16:52 EDT [facility] MPV 10.4 9.5 - 12.7 fl 03/18/2020 16:52 EDT [facility] Blood VENOUS BLOOD / Unknown Venipuncture / Unknown 03/18/2020 16:02 EDT 03/18/2020 16:32 EDT us Es Peace WELFARE ELIGIBILITY INTERVIEWER HEMATOLOGY & PF4 ORDERABLES F inal Result [facility] [address] [place] [address] * (ABNORMAL) CALCIUM (03/18/2020 6:55 EDT) Calcium 8.4(L) 8.5 - 10.5 mg/dL 03/18/2020 18:27 EDT [facility] Calculated Calcium 8.9 8.5 - 10.5 mg/dL 03/18/2020 18:27 EDT [facility] Blood VENOUS BLOOD / Unknown Venipuncture / Unknown 03/18/2020 6:55 EDT 03/18/2020 7:04 EDT us Clayton Reynoso MD CHEMISTRY & BLOOD GAS ORDER RENEE Final Result Performing Organization Address City/[facility]/ZIP Co de Phone Number [facility] [address] [place] [address] * MAGNESIUM (03/18/2020 6:55 EDT) Magnesium 2.1 1.7 - 2.8 mg/dL 03/18/2020 18:27 [facility] Blood VENOUS BLOOD / Unknown Venipuncture / Unknown 03/18/2020 6:55 EDT 03/18/2020 7:04 EDT us Clayton Reynoso MD CHEMISTRY & BLOOD GAS ORDER RENEE Final Result [facility] [address] [place] [address] * (ABNORMAL) COMPLETE BLOOD COUNT AND DIFFERENTIAL (03/18/2020 6:55 EDT) WBC 11.94(H) 4.00 - 10.40 K/cmm 03/18/2020 7:14 [facility] RBC 4.65 4.36 - 5.78 M/cmm 03/18/2020 7:14 [facility] Hemoglobin 15.3 13.8 - 17.3 gm/dL 03/18/2020 7:14 [facility] HCT 44.3 39.5 - 50.2 % 03/18/2020 7:14 [facility] MCV 95 81 - 95 fl 03/18/2020 7:14 [facility] MCH 32.9 27.6 - 33.0 pg 03/18/2020 7:14 [facility] MCHC 34.5 32.8 - 36.4 gm/dL 03/18/2020 7:14 [facility] RDW-CV 12.5 <14.2 % 03/18/2020 7:14 [facility] RDW-SD 43.6 <46.0 fl 03/18/2020 7:14 [facility] PLT 184 141 - 377 K/cmm 03/18/2020 7:14 [facility] MPV 10.0 9.5 - 12.7 fl 03/18/2020 7:14 [facility] % Neutrophils 76.9 % 03/18/2020 7:14 [facility] % Lymphocytes 14.4 % 03/18/2020 7:14 [facility] % Monocytes 8.1 % 03/18/2020 7:14 [facility] % Eosinophils 0.1 % 03/18/2020 7:14 [facility] % Basophils 0.2 % 03/18/2020 7:14 [facility] % Immature Grans 0.3 % 03/18/20 20 7:14 [facility] Absolute Neutrophils 9.18(H) 2.20 - 8.85 K/cmm 03/18/2020 7:14 [facility] Absolute Lymphocytes 1.72 1.09 - 3.30 K/cmm 03/18/2020 7:14 [facility] Absolute Monocytes 0.97(H) 0.10 - 0.80 K/cmm 03/18/2020 7:14 [facility] Absolute Eosinophils 0.01(L) 0.03 - 0.61 K/cmm 03/18/2020 7:14 [facility] ABS Basophils 0.02 0.01 - 0.11 K/cmm 03/18/2020 7:14 [facility] Absolute Immature Grans 0.04 0.00 - 0.06 K/cmm 03/18/2020 7:14 [facility] Type of Differential: Auto 03/18/2020 7:14 [facility] Blood VENOUS BLOOD / Unknown Venipuncture / Unknown 03/18/2020 6:55 EDT 03/18/2020 7:06 EDT us Es Peace WELFARE ELIGIBILITY INTERVIEWER PACKAGES & DNA PROBE ORDERABL ES Final Result [facility] [address] [place] [address] * CREATININE (03/18/2020 6:55 EDT) Creatinine 0.79 0.66 - 1.25 mg/dL 03/18/2020 7:35 [facility] eGFR 86 >60 mL/min/1.7 3m2 03/18/2020 7:35 [facility] Comment:eGFR calculated ernesto cee CKD-EPI equation for non- Americans. Multiply eGFR by 1.16 for patients. Blood VENOUS BLOOD / Unknown Venipuncture / Unknown 03/18/2020 6:55 EDT 03/18/2020 7:04 EDT Es Purcellia WELFARE ELIGIBILITY INTERVIEWER CHEMISTRY & BLOOD GAS ORDERAB LES Final Result Performing Organization Address City/[facility]/ZIP Co de Phone Number [facility] [address] [place] [address] * BUN (03/18/2020 6:55 EDT) BUN 12 10 - 26 mg/dL 03/18/2020 7:35 EDT [facility] Blood VENOUS BLOOD / Unknown Venipuncture / Unknown 03/18/2020 6:55 EDT 03/18/2020 7:04 EDT Es Purcellia WELFARE ELIGIBILITY INTERVIEWER CHEMISTRY & BLOOD GAS ORDERAB LES Final Result Performing Organization Address [facility] Co de Phone Number [facility] [address] [place] [address] * (ABNORMAL) ELECTROLYTES (03/18/2020 6:55 EDT) Sodium 135(L) 136 - 145 mEq/L 03/18/2020 7:35 EDT [facility] Potassium 4.2 3.5 - 5.0 mEq/L 03/18/2020 7:35 EDT [facility] Chloride 104 96 - 110 mEq/L 03/18/2020 7:35 EDT [facility] CO2 Total 23 22 - 32 mEq/L 03/18/2020 7:35 EDT [facility] Blood VENOUS BLOOD / Unknown Venipuncture / Unknown 03/18/2020 6:55 EDT 03/18/2020 7:04 EDT Es Purcellia WELFARE ELIGIBILITY INTERVIEWER CHEMISTRY & BLOOD GAS ORDERAB LES Final Result Performing Organization Address City/[facility]/ZIP Co de Phone Number [facility] [address] [place] [address] * (ABNORMAL) SCREENING GLUCOSE (03/18/2020 6:55 EDT) Glucose, Screening 107(H) 70 - 100 mg/dL 03/18/2020 7:35 EDT [facility] Blood VENOUS BLOOD / Unknown Venipuncture / Unknown 03/18/2020 6:55 EDT 03/18/2020 7:04 EDT us Es Peace NP CHEMISTRY & BLOOD GAS ORDERAB LES Final Result [facility] [address] [place] [address] * BACTERIAL CULTURE, BLOOD (03/17/2020 18:20 EDT) Organism ID No Growth at 5 days 03/22/2020 19:15 EDT [facility] Blood VENOUS BLOOD / Unknown Blood Culture / Unknown 03/17/2020 18:20 EDT 03/17/2020 19:10 EDT us Jaguar Liang MD MICROBIOLOGY - GENERAL ORDERAB LES Final Result [facility] [address] [place] [address] * BACTERIAL CULTURE, BLOOD (03/17/2020 18:13 EDT) Organism ID No Growth at 5 days 03/22/2020 19:15 EDT [facility] Blood VENOUS BLOOD / Unknown Blood Culture / Unknown 03/17/2020 18:13 EDT 03/17/2020 19:10 EDT us Jaguar Liang MD MICROBIOLOGY - GENERAL ORDERAB LES Final Result [facility] [address] [place] [address] * BACTERIAL CULTURE, URINE (03/17/2020 17:59 EDT) Organism ID No Growth 03/19/2020 8:17 EDT [facility] Urine URINE SPECIMEN OBTAINED BY SINGLE CATHETERIZATION OF URINARY BLADDER / Unknown Urine Collect / Unknown 03/17/2020 17:59 EDT 03/17/2020 18:35 EDT us Jaguar Liang MD MICROBIOLOGY - GENERAL ORDERAB LES Final Result [facility] [address] [place] [address] * (ABNORMAL) URINE CHEMICAL (DIP) & SEDIMENT (MICRO) WITH REFLEX TO CULTURE (03/17/2020 17:59 EDT) Color UA Yellow Colorless, Yellow 03/17/2020 18:35 [facility] Clarity UA Clear Clear 03/17/2020 18:35 [facility] Glucose UA Negative Negative 03/17/2020 18:35 [facility] Bilirubin UA Negative Negative 03/17/2020 18:35 [facility] Ketones UA 1+(A) Negative 03/17/2020 18:35 [facility] Specific [place], Urine 1.028 1.001 - 1.035 03/17/2020 18:35 [facility] Blood UA 3+(A) Negative 03/17/2020 18:35 [facility] Urobilinogen UA Normal Normal mg/dL 020 18:35 [facility] Nitrite UA Negative Negative 03/17/2020 18:35 [facility] Leukocyte Esterase UA 2+(A) Negative 03/17/2020 18:35 [facility] Protein UA 2+(A) Negative 03/17/2020 18:35 [facility] pH, UA 6.0 4.6 - 8.0 03/17/2020 18:35 [facility] Urine RBC Count, Auto >50(A) 0 - 2 Cells/HPF 03/17/2020 18:35 [facility] Urine WBC Count, Auto >50(A) 0 - 3 Cells/HPF 03/17/2020 18:35 [facility] Urine Squamous Count, Auto None Seen None Seen Cells/HPF 03/17/2020 18:35 EDT [facility] Urine Hyaline Cast Count, Auto <=10 <=10 Casts/LPF 03/17/2020 18:35 T [facility] Urine Bacteria Count, Auto None Seen None Seen Bacteria/HPF 03/17/2020 18:35 T [facility] Urine URINE SPECIMEN OBTAINED BY SINGLE CATHETERIZATION OF URINARY BLADDER / Unknown Urine Collect / Unknown 03/17/2020 17:59 EDT 03/17/2020 18:05 EDT Narrative [facility] - 03/17/2020 18:35 EDT A Urine Culture test has been reflexively ordered based on result criteria from the Urine Sediment Analysis. Urine Sediment Analysis results are unreliable on urines that are unrefrigerated for >2 hrs or refrigerated >8 hrs. us Jaguar Liang MD URINALYSIS ORDERABLES Final Re sult [facility] [address] [place] [address] * SURGICAL PATHOLOGY (03/17/2020 10:30 EDT) Final Diagnosis A. 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 - Negative for dysplasia and malignancy. - Surgical resection margins viable. 03/22/2020 15:14 [facility] at 1514 Attestation There was significant resident/fellow involvement in the diagnostic evaluation of this case. By the signature below, the attending physician certifies that they have personally conducted a gross and/or microscopic examination of the described specimens and rendered or confirmed the above diagnosis. 03/22/2020 15:14 [facility] at 1514 Clinical History Colovesical fistula; diverticulitis 03/22/2020 15:14 [facility] Gross Description A. Received in [...] surrounding mesentery reveals lobulated, yellow cut surfaces. Regional Sales Associate sections are submitted as follows: BLOCK HENSON A1- stapled margin, en face A2-A3- open margin, bisected, en face A4-A7- sections of diverticula A8- section of separate donut Kim Joel 03/18/2020 8:05 03/22/2020 15:14 EDT [facility] Resident/Vish w: Chance Crouch MD 03/22/2020 15:14 EDT [facility] Scanned Images 03/22/2020 15:14 EDT [facility] Tissue ENTIRE SIGMOID COLON / Unknown 03/17/2020 10:30 EDT 03/17/2020 16:33 EDT us Sara Mendez MD PATHOLOGY ORDERABLES Final Res ult [facility] [address] [place] [address] documented in this encounter Visit Diagnoses Diagnosis [...] 02/26 documented in this encounter Care Teams Lacquer Spray Booth Operator Relationship Specialty Start Date End Date Kylie Oglesby [address] [place] [address] PCP - General Internal Medicine - Primary Care 12/15/19 documented as of this encounter
--- OUTSIDE RECORDS SUMMARY | 2024-11-27 20:34 | XMS_ITS | Encounter Summary ---
Author Organization [facility] Address [address] [place] [address] Care Team Providers Care Physics Tutor Name Role Phone Kylie Oglesby Primary Care Provider Reason for Visit * Reason Onset Date Comments Medications Refill 01/12/2020 Encounter Details Date Type Department Care Team (Late st Contact Info) Description 01/12/[address] [facility] [address] [place], [place] [address] Cathryn Monzon, MANOJ [address] [place] [address] Medications Refill Social History Tobacco [...] cloacae complex(A) VITEK SUSCEPTIBILITY 0 7:22 EDT [facility] Comment: Third generation cephalosporins, such as ceftazidime, ceftriaxone, and cefpodoxime, should be avoided for treatment of this organism regardless of in vitro susceptibility. Organism ID Greater than 100,000 CFU/ml Klebsiella pneumoniae(A) VITEK SUSCEPTIBILITY 0 7:22 EDT [facility] Comment: Cefazolin susceptibility results [...] only cefpodoxime and cephalexin are on the [facility] inpatient formulary. Urine URINE SPECIMEN OBTAINED [...] KAT FRAIRE Final Result Performing Organization Address City/State/[facility] de Phone Number [facility] [address] [place] [id number] documented in this encounter Visit Diagnoses Diagnosis Acute cystitis without hematuria- Primary Acute cystitis documented in this encounter Care Teams Physics Tutor Relationship Specialty Start Date End Date Kylie Oglesby [address] [place] [address] PCP - General Internal Medicine - Primary Care 12/15/19 documented as of this encounter
--- OUTSIDE RECORDS SUMMARY | 2024-11-27 20:34 | XMS_ITS | Encounter Summary ---
Author Organization [facility] Address [address] [place] [address] Care Team Providers Care Associate Medical Director Name Role Phone Kylie Oglesby Primary Care Provider [phone] Encounter Details Date Type Department Care Team (Late st Contact Info) Description 03/09/2020 Orders Only [facility] General Surgery - [facility] [address] [place], [place] [id number] Sara Mendez MD [address] [facility], [address] [place] [address] Encounter for laboratory testing for [...] Primary documented in this encounter Care Teams Associate Medical Director Relationship Specialty Start Date End Date Kylie Oglesby [address] [place] [address] PCP - General Internal Medicine - Primary Care 12/15/19 documented as of this encounter
--- OUTSIDE RECORDS SUMMARY | 2024-11-27 20:34 | XMS_ITS | Continuity of Care Document ---
Author Organization [place] [facility] Address [address] [place] [address] Care Team Providers Care Oncology Pharmacist Name Role Phone [facility] Sleep Medicine Assessment No assessment recorded. Plan of Treatment Reminders Order Date Submit Date Provider Last Modified By Organization Details Last Modified Time Details Appointments Follow Up 2024 11:00A Belem CAMARGO, Not available Not available Not available Follow Up 2024 08:40A Belem CAMARGO, Not available Not available Not available Lab CMP, serum or plasma 2024 025 [facility], [address] [place] [address], [id number], 11/27/2024 15:52:28 CBC 2024 025 [facility], [address] [place] [address], [id number], 11/27/2024 15:28:24 ferritin, serum or plasma [email or web address] [facility], [address] [place] [address], [id number], 11/27/2024 12:02:23 TIBC (total iron-bind ing capacity) , serum 2024 025 [facility], [address] [place] [address], [id number], 11/27/2024 12:10:39 iron saturatio n, serum 2024 025 [facility], [address], [place], [address], 11/27/2024 12:30:47 Referral None recorded. Procedures None recorded. Surgeries None recorded. Imaging None recorded. Medication Orders triamcino lone acetonide 0.1 % topical ointment 2024 025 [facility][id number], [address], [place], [address], 11/27/2024 11:26:12 Patient TargetsNo targets recorded. Patient Instructions Encounter Date Encounter Id Patient Instructions Last Modified By Organization Details Last Modified Time 11/27/2024 [id number] Use eucerin crea m on the itchy rash twice a day every day Use triamcinolone ointment twice a day for 2 weeks or until the rash is improved stop benadryl - you can try cetirizine 10 mg daily instead (which is non-drowsy) Stop lyrica Call to get set up with CPAP - please try this for at least 2 weeks Stop neosporin Try tylenol 1 g three times a day for the neuropathy pain you can also try [email or web address] Not available 11/27/2024 11:28:59 Reason for Referral None Reported. Problems Name Problem SNOMED Code Status Onset Date Resolution Date Notes Provider Name and Address Organization Details Recorded Time Divertic maryam of bhupendra e 39654181 Active 2002 Problem Code: K57.90; Problem Code Type: ICD-10; MD Alirio [address], [place], [address] , [facility] 4 11:26:06 Varicoce le 06778405 Active 2014 Problem Code: I86.1; Problem Code Type: ICD-10; MD Alirio [address], [place], [address] , [facility] 4 11:26:06 Adult health examinat ion Active 2014 Problem Code: Z00.00; Problem Code Type: ICD-10; MD Alirio [address], [place], [address] , [facility] 4 11:26:05 Daquanari a [id number] Completed 201503/15/2016 03/11/20 16 - Comments only - Adilia Gloria M.D. - resolved at this point. unclear etiology - could have been reaction to exposure vs. viral. if recurs, pt knows to take benadryl and zantac. f/u prn. Problem Code: L50.9; Problem Code Type: ICD-10; Not Available [facility] 3 04:35:33 Low back pain 035734386 Completed 201505/20/2016 05/10/20 16 - Comments only - Adilia Gloria M.D. - No red flags, although given age I would have a lower threshol d for imaging. tx with rest, ice/heat , ibup. If no better in 2 wks pt will call and we will xray and consider PT. Problem Code: M54.5; Problem Code Type: ICD-10; DILLON CAMARGO MD [address], [place], [address] , [facility] 4 11:26:05 Dysuria 27229774 Completed 201510/22/2016 09/21/20 16 - Comments only [...] fever over the weekend. I am referrin g him to urology because regardle ss of whether this is another UTI, he has had frequent urinary symptoms . Problem Code: R30.0; Problem Code Type: ICD-10; Not Available [facility] 3 04:35:33 Benign prostati c hyperpla mandy 639450101 Active 201812/30/19 19 - Comments only - Andrae Webster MD - It seems he is managing well on his tamsulos in. Plan: Continue that medicati on. Problem Code: N40.0; Problem Code Type: ICD-10; MD Alirio [address], [facility] [address] , [facility] 4 11:26:05 Dizzines s and giddines s 804758473 Completed 201801/17/2019 12/30/19 19 - Comments only - Andrae Webster MD - His acute episode has resolved . I did review exercise s that he can do to improve his balance. Follow as needed. Problem Code: R42; Problem Code Type: ICD-10; Not Available [facility] 3 04:35:33 Low back pain 886031028 Active 2018 Problem Code: M54.5; Problem Code Type: ICD-10; MD Alirio [address], [facility] [address] , [facility] 4 11:26:05 Abnormal urine 726165506 Completed 201902/10/2020 Problem Code: R82.90; Problem Code Type: ICD-10; Not Available [facility] 3 04:35:33 Gastroin testinal tract excision Active 2019 Problem Code: Z90.49; Problem Code Type: ICD-10; MD Alirio [address], [facility] [address] , [facility] 4 11:26:05 Prediabe lucy 288753782 Active 2020 Problem Code: R73.03; Problem Code Type: ICD-10; MD Alirio [address], [facility] [address] , [facility] 4 11:26:06 Onychomy cosis due to dermatop hyte 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 Post procedur e wound instruct ions reviewed includin g Epson salts twice daily for the next few days. Reviewed signs and symptoms of infectio n that would require reevalua tion. Problem Code: S91.201A ; Problem Code Type: ICD-10; Not Available [facility] 3 04:35:34 Pre-surg patricia evaluati on Completed 201603/24/2021 Problem Code: Z01.818; Problem Code Type: ICD-10; Not Available [facility] 3 04:35:37 Localize d eruption of skin 664247668 Completed 201906/27/2020 Problem Code: R21; Problem Code Type: ICD-10; Not Available [facility] 3 04:35:38 Impaired intestin al carbohyd rate absorpti on 15526616 Completed 201805/11/2019 Problem Code: E74.39; Problem Code Type: ICD-10; Not Available [facility] 3 04:35:38 Cystitis 85126081 Completed 201804/01/2020 Problem Code: N30.90; Problem Code Type: ICD-10; Not Available [facility] 3 04:35:38 Ex-smoke r 9916194 Completed 199407/24/2023 Not Available [facility] 3 04:35:38 Sciatica 86533741 Completed 201407/24/2023 Not Available [facility] 3 04:35:38 Hyperlip idemia 36536069 Completed 201903/24/2021 Problem Code: E78.5; Problem Code Type: ICD-10; Not Available [facility] 3 04:35:38 Increase d frequenc y of urinatio n 228473992 Completed 201903/24/2021 Problem Code: R35.0; Problem Code Type: ICD-10; Not Available [facility] 3 04:35:38 Urinary tract infectio us disease 49708058 Completed 201412/29/2018 Problem Code: N39.0; Problem Code Type: ICD-10; Not Available [facility] 3 04:35:39 Urinary tract infectio us disease 58644533 Completed 201512/29/2018 Problem Code: N39.0; Problem Code Type: ICD-10; Not Available [facility] 3 04:35:39 Blood glucose outside referenc e range 188132688 Completed 201803/24/2021 Problem Code: R73.09; Problem Code Type: ICD-10; Not Available [facility] 3 04:35:40 Divertic ular disease 260493864 Completed 200207/24/2023 Not Available [facility] 3 04:35:40 Nocturia 702425036 Completed 201512/29/2018 Problem Code: R35.1; Problem Code Type: ICD-10; Not Available [facility] 3 04:35:40 Varicose veins of lower extremit y with ulcer AND inflamma tion 56045825 Completed 200406/27/2020 Problem Code: 454.2; Problem Code Type: ICD-9; Not Available [facility] 3 04:35:40 Left side sciatica 42884344499 9104 Completed 201412/29/2018 Problem Code: M54.32; Problem Code Type: ICD-10; Not Available [facility] 3 04:35:41 Former heavy tobacco smoker 53149697463 4100 Active [address], [facility] [address] [place] [address] 4 11:26:40 Cobalami n deficien cy 780375167 Active [address], [address] 4 11:13:36 Erythroc ytosis 083787342 Active [address], [address] 4 11:01:15 Acute bronchit is 47730875 Active [address], [address] 4 14:01:07 Snoring 78843374 Active 2023 AMINA GIFFORD, [facility] 4 16:41:36 Restless legs 82919264 Active 2023 AMINA GIFFORD, [facility] 4 16:42:42 Obstruct alexandra sleep apnea syndrome 68441156 Active [address], [facility] [address] [place] [address] 4 10:39:50 Problem Notes None recorded. Medical Equipment None Reported. Allergies Allergen ID Allergen Name Allergen Category Reaction Reaction Severity Criticality Documentation Date Start Date Code Code System Note Provider Name and Address Organization Details Recorded Time 16052 prednison e medicatio n Not available Not available Not available 09/06/20232014 8640 RxNorm Not Available [facility] 3 16:22:06 Medications Name Sig Start Date [...] Not Available Not Available Not Available Vitals Date Recorded Body height Provider Name an d Address Organization Details Last Updated DateTime 11/27/2024 193.548 cm [facility] 11/27/2024 11:03:55 Date Recorded Body mass index (BMI) Body weight Provider Name and Address Organization Details Last Updated DateTime 11/27/2024 28.9 kg/m2 745739.08 g [facility] 11/27/2024 11:04:04 Date Recorded Body temperature Provider Name a nd Address Organization Details Last Updated DateTime 11/27/2024 98 [degF] [facility] 11/27/2024 11:04:09 Date Recorded Heart rate Provider Name an d Address Organization Details Last Updated DateTime 11/27/2024 68 /min [facility] GREY [facility] 11/27/2024 11:04:30 Date Recorded Oxygen saturation Oxygen saturation in Arterial blood by Pulse oximetry Provider Name and Address Organization Details Last Updated DateTime 11/27/2024 95 % 95 % [facility] 11/27/2024 11:04:33 Date Recorded Systolic blood pressure Diastolic blood pressure Provider Name and Address Organization Details Last Updated DateTime 11/27/2024 120 mm[Hg] 64 mm[Hg] VANCE GREY LPN [facility] 11/27/2024 11:05:53 Social History Question Answer Notes LastModified by Organizat ion Details LastModified Time Tobacco Smoking Status Former Smoker KIA DAVIS RN [facility], [facility] 11/15/2023 11:02:28 When Did You Quit Smoking? 17+yearssin moi mahomod [email or web address] Information not available 01/24/2024 Would You Say That, In General, Your Health Is Good [email or web address] Information not available 01/24/2024 How Often Does Anyone, Including Family, Physically Hurt You? Never [email or web address] Information not available 01/24/2024 How Often Does Anyone, Including Family, Insult Or Talk Down To You? Never [email or web address] Information no t available 01/24/2024 How Often Does Anyone, Including Family, Threaten You With Harm? Never [email or web address] Information not available 01/24/2024 How Often Does Anyone, Including Family, Scream Or Curse At You? Never [email or web address] Information not available 01/24/2024 Within The Past 12 Months, You Worried That Your Food Would Run Out Before You Got Money To Buy More. Never True [email or web address] Information n ot available 01/24/2024 Within The Past 12 Months, The Food You Bought Just Didn't Last And You Didn't Have Money To Get More. Never True [email or web address] Information not available 01/24/2024 How Hard Is It For You To Pay For The Very Basics Like Food, Housing, Medical Care, And Heating? Would You Say It Is: Not Hard At All Information not available 01/24/2024 In The Past 12 Months, Has Lack Of Reliable Transportation Kept You From Medical Appointments, Meetings, Work Or From Getting Things Needed For Daily Living? No [email or web address] Information not available 01/24/2024 What Is Your Housing Situation Today? I Have Housing. [email or web address] Information not available 01/24/2024 How Often In The Past Year Have You Used Marijuana (including Smoking, Vaping, Dabbing, Or Edibles)? Never [email or web address] Information not available 01/24/2024 How Often In The Past Year Have You Used Prescription Medications That Were Not Prescribed To You? Never [email or web address] Information not available 01/24/2024 How Often In The Past Year Have You Taken Your Own Prescription Medication More Than The Way It Was Prescribed Or For Different Reasons Than Its Intended Purpose? Never Information not available 01/24/2024 How Often In The Past Year Have You Used Other Drugs (for Example, Heroin, Cocaine, Meth, Salvia, Inhalants)? Never [email or web address] Information not available 01/24/2024 Have You Ever Used IV Drugs? No [email or web address] Information not available 01/24/2024 Date Of Most Recent SBINS 01/24/2024 [email or web address] Information not available 01/24/2024 What Was The Date Of Your Most Recent Tobacco Screening? 08/26/2024 [email or web address] Information n ot available 08/26/2024 What Is Your Current Pack Years? 30ormorepac vianeys [email or web address] Information not available 11/15/2023 Has Tobacco Cessation Counseling Been Provided? No [email or web address] Information not available 11/15/2023 Do You Or Have You Ever Used Any Other Forms Of Tobacco Or Nicotine? No [email or web address] Information not available 08/26/2024 Sex: Male Functional Status None recorded. Mental Status None recorded. Family History Nothing Reported Notes:*Problem: Mother: , age 89, old age Father: age ? cause unknown Sisters: none Brothers: none Children: none Medical History No medical history recorded. Immunizations Vaccine Type Date Status Note Provider Nam e and Address Organization Details Recorded Time Tdap 9 completed Not Available [facility] 09/06/2023 04:21:38 Pneumococcal conjugate PCV 13 6 completed Not Available [facility] 09/06/2023 04:21:38 Influenza, high-dose, trivalent, PF 1 completed Not Available [facility] 09/06/2023 04:21:39 Influenza, high-dose, trivalent, PF 8 completed Not Available [facility] 09/06/2023 04:21:39 Influenza, high-dose, trivalent, PF 6 completed Not Available [facility] 09/06/2023 04:21:39 Influenza, high-dose, trivalent, PF 5 completed Not Available [facility] 09/06/2023 04:21:39 Influenza, adjuvanted, trivalent, PF 7 completed Not Available [facility] 09/06/2023 04:21:39 Influenza, high-dose, quadrivalent, PF 2 completed Not Available [facility] 09/06/2023 04:21:40 COVID-19, mRNA, LNP-S, PF, 100 mcg/0.5mL dose or 50 mcg/0.25mL dose 1 completed Not Available [facility] 09/06/2023 04:21:40 COVID-19, mRNA, LNP-S, PF, 100 mcg/0.5mL dose or 50 mcg/0.25mL dose 1 completed Not Available [facility] 09/06/2023 04:21:40 COVID-19, mRNA, LNP-S, PF, 100 mcg/0.5mL dose or 50 mcg/0.25mL dose 1 completed Not Available [facility] 09/06/2023 04:21:41 COVID-19, mRNA, LNP-S, bivalent, PF, 30 mcg/0.3 mL dose 2 completed Not Available [facility] 09/06/2023 04:21:41 pneumococcal polysaccharide PPV23 8 completed Not Available [facility] 09/06/2023 04:21:41 influenza, unspecified formulation 9 completed Not Available [facility] 09/06/2023 04:21:42 COVID-19, mRNA, LNP-S, PF, chuyita-sucrose, 30 mcg/0.3 mL 4 completed AMINA Alvarez, [facility] 08/17/2024 08:12:56 Influenza, high-dose, trivalent, PF 4 completed AMINA Alvarez, [facility] 08/17/2024 08:14:26 Influenza, high-dose, quadrivalent, PF 3 completed Not Available [facility] 11/08/2023 05:31:43 COVID-19, mRNA, LNP-S, PF, chuyita-sucrose, 30 mcg/0.3 mL 3 completed Not Available [facility] 11/08/2023 05:31:43 Past Encounters Encounter ID Performer Location Encounter Start Date Encounter Closed Date Diagnosis/Indication Diagnosis SNOMED-CT Code Diagnosis ICD10 Code Diagnosis Note [id number] DILLON CAMARGO MD [address] [address] 11/27/2024 10:57:09 11/27/2024 11:53:14 Polyneuropathy [id number] G62.9 b/l LE peripheral neuropathy . EMG - severe axonal sensorimot or polyneurop athy. chronic burning pain and balance issues.Thi s may be due to combinatio n of prediabete s, hx of heavy alcohol use, b12 deficiency , b12 now replete. 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 Continue oral b12 1000 mcg daily Erythrocytosis 155602594 D75.1 mild, chronic, most likely r/t untreated moderate MEAGAN. recheck today with iron studies to r/o iron overload Obstructiv e sleep apnea syndrome 36354307 G47.33 He never tried CPAP, strongly encouraged to try this, he agrees to callf/u 3 weeks Pruritic rash 69726778 L 28.2 this is most c/w dermatitis /eczema likely winter related.ad vised eucerin bid, triamcinol one bid x 2 weeks,stop benadryl (probably contributi ng to fatigue) use cetirizine insteadche ck cmpf/u 3 weeks to recheck Erythematous rash 763741 004 R21 asymptomat ic erythemato us patch blanching with blanching petechia-l violet surroundin g macules over right ankle. left ankle wnl. suspect neosporin is making this look worse. stop neosporin, check labs f/u 3 wks Health Concerns Section Related Observation LastModified by Organization Detai ls LastModified Time None Recorded Concern Status LastModified by Organization Details LastModified Time None Recorded Payers Encounter Date Sequence Insurance Name Policy Number Policy Charlton Covered Member ID Charlton Member ID Guarantor Name 11/27/2024 2 [place] [facility] BLUE PLAN F (MEDICARE SUPPLEMENT) [id number] Jasbir Crowe Nudd [id number] Jasbir Crowe Nudd 11/27/2024 1 [place] [facility] [employer] Jasbir Crowe Nudd [id number] Jasbir Crowe Nudd Notes Date Note Type Note Provider Name and Address Organization Details Recorded Time 11/27/2024 text/html Here for f/u polyneuropathy. He is also dealing with an itchy dry skin rash on arms and legs, trunk for a couple of weeksHe is taking benadryl and he is using hydrocortisone ointment otc with some relief.he has been feeling quite tired lately.He elected not to try CPAP, did not think he would tolerate it.The lyrica has not made any difference in his neuropathy symptoms. He also notes has had a right lower ankle redness for a couple of weeks No abdominal pain constipation or diarrhea.Uses stool softener which helps.WEight is stable.No urinary difficulties. DILLON CAMARGO MD [address], [place], [address], [facility]. 11/27/2024 12:32:26
== END 2024-11-27 20:31 | disposition home or self-care (01) ==
LOC: NCHCN 20:30
PROVIDERS: PCP Family Medicine; Visit Provider Internal Medicine
DX: L28.2 Other prurigo (principal); D75.1 Secondary polycythemia
CPT/HCPCS: 80053; 85027; 82728; 83540; 83550

== ENCOUNTER 2024-12-21 17:53 | Outpatient (REF) | payer MEDICARE, BC, SELFPAY ==
[2024-12-24 20:11] LABS: Erythropoietin 7.5 mIU/mL (2.6 - 18.5)
[2024-12-29 18:37] LABS: JAK2 Result see interpretation
== END 2024-12-21 17:54 | disposition home or self-care (01) ==
LOC: NCHCN 17:53
PROVIDERS: PCP Family Medicine; Visit Provider Internal Medicine
DX: D75.1 Secondary polycythemia (principal)
CPT/HCPCS: 82668; 81270